=== PATIENT | male | born 1965 | race Caucasian/White ===

== ENCOUNTER → 2018-02-13 08:21 | Outpatient (CLI) | payer OTHER, SELFPAY ==
[2018-02-13 09:22] LABS: Anion Gap 8 (5-15); BUN 15 mg/dL (7-18); BUN/Creat Ratio 15.1 RATIO (10-20); Calcium,Total 8.5 mg/dL (8.5-10.1); Chloride 102 mmol/L (98-107); Cholesterol 155 mg/dL (200); Creatinine, Serum 0.99 mg/dL (0.70-1.30); EST Glomerular Filtration Rate 85 mL/min (>60); Est Glom Filt Rate - Afr Amer 102 mL/min (>60); Glucose 213 mg/dL (74-106); High Density Lipoprotein 26 mg/dL; Microalbumin,Random Urine 44.2 mg/L (NO RANGE EST.); Microalbumin:Creatinine Ratio 29.1 mg/g CRE (<30 mg/g CRE); Potassium 4.5 mmol/L (3.5-5.1); Sodium Level 137 mmol/L (136-145); Triglycerides 334 mg/dL; Very Low Density Lipoprotein 67 mg/dL (5-40)
[2018-02-13 09:29] LABS: Hemoglobin A1c 8.5 % (4.2-6.3)
== END ==
PROVIDERS: Family Provider Family Medicine; PCP Family Medicine; Visit Provider Nurse Practitioner Family
DX: Z00.00 Encounter for general adult medical examination without abnormal findings (principal); E11.9 Type 2 diabetes mellitus without complications
CPT/HCPCS: 36415; 80048; 80061; 82043; 82570; 83036

== ENCOUNTER → 2018-07-12 06:53 | Outpatient (CLI) | payer OTHER, SELFPAY ==
[2018-07-12 08:24] LABS: Hemoglobin A1c 7.6 % (4.2-6.3)
[2018-07-12 08:41] LABS: Bilirubin, Direct 0.13 mg/dL (0.00-0.30)
== END ==
PROVIDERS: Family Provider Family Medicine; PCP Family Medicine; Visit Provider Family Medicine
DX: E11.9 Type 2 diabetes mellitus without complications (principal); E78.5 Hyperlipidemia, unspecified
CPT/HCPCS: 36415; 82248; 83036

== ENCOUNTER → 2018-11-17 09:09 | Outpatient (CLI) | payer OTHER, SELFPAY | PROVIDERS: Family Provider Family Medicine; PCP Family Medicine; Referring Provider Family Medicine; Visit Provider Family Medicine | DX: E11.9 Type 2 diabetes mellitus without complications (principal) | CPT/HCPCS: 36415; 83036 ==

== ENCOUNTER → 2018-11-21 16:52 | Outpatient (CLI) | payer OTHER, SELFPAY ==
[2018-11-21 16:31] VITALS: BMI 34.0
--- NOTE | 2018-11-21 16:53 | RAD_ITS ---
STUDY: X-RAY - RIGHT HAND REASON FOR EXAM: Male, 53 years old. Injured right hand TECHNIQUE: 3 view(s) of the hand. COMPARISON: None. FINDINGS: Normal radiocarpal articulation. Normal distal radioulnar joint. Normal visualized carpal bones. Normal carpal articulations Normal carpometacarpal articulation of the thumb. Normal second through fifth carpometacarpal joints. Normal metacarpi. Normal metacarpophalangeal joint of the thumb. Normal interphalangeal joint of the thumb. Normal proximal and distal phalanges of the thumb. Normal metacarpophalangeal joints of the second through fifth fingers. Normal proximal and distal interphalangeal joints of the second through fifth fingers. Normal phalanges of the second through fifth fingers. The soft tissue structures are unremarkable. RAD/Hand Min 3 Views IMPRESSION: Normal x-ray examination of the hand. Electronically Signed: Jermain Harper MD at 18:55 EST , Service support ,
== END ==
PROVIDERS: Family Provider Family Medicine; PCP Family Medicine; Referring Provider Physician Assistant Surgical; Visit Provider Physician Assistant Surgical
DX: S66.911A Strain of unspecified muscle, fascia and tendon at wrist and hand level, right hand, initial encounter (principal)
CPT/HCPCS: 73130

== ENCOUNTER → 2019-02-07 07:53 | Outpatient (CLI) | payer OTHER, SELFPAY ==
[2018-11-21 16:31] VITALS: BMI 34.0
[2019-02-07 09:41] LABS: Hemoglobin A1c 6.9 % (4.2-6.3)
== END ==
PROVIDERS: Family Provider Family Medicine; PCP Family Medicine; Referring Provider Family Medicine; Visit Provider Family Medicine
DX: E11.9 Type 2 diabetes mellitus without complications (principal)
CPT/HCPCS: 36415; 83036

== ENCOUNTER 2019-06-01 15:43 | Emergency (ER) | payer OTHER, SELFPAY ==
[2018-11-21 16:31] VITALS: BMI 34.0
[2019-06-01 15:45] VITALS: BP 153/93; PULSE 93; RESP 16; TEMP 36.3; O2SAT 96; BMI 32.8
--- NOTE | 2019-06-01 15:50 | RAD_ITS ---
STUDY: X-RAY - RIGHT SHOULDER REASON FOR EXAM: Male, 54 years old. Trauma TECHNIQUE: 2 view(s) of the shoulder. COMPARISON: None. FINDINGS: Mildly narrowed glenohumeral articulation and subacromial space narrowing.. Arthrosis of the acromioclavicular joint. Normal acromion. Normal humeral head and visualized proximal humerus. The soft tissue structures are unremarkable. Normal visualized pulmonary apex. RAD/Shoulder min 2 Views IMPRESSION: Degenerative changes. No evidence for acute fracture Electronically Signed: Adair Arzola MD at 16:19 EDT , Service support ,
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
--- NOTE | 2019-06-01 16:34 | ED.DEP ---
ED Disposition - Plan for ED Patient: Disposition: Home or Assisted Living Instructions: Shoulder Sprain Referrals: Neal Brown III, MD [Primary Care Provider] - Peggy Loving DO [STAFF PHYSICIAN] -
[2019-06-01 16:41] VITALS: PULSE 71; RESP 18
== END 2019-06-01 16:42 | disposition home or self-care (01) ==
PROVIDERS: Emergency Provider Emergency Medicine; Family Provider Family Medicine; PCP Family Medicine
DX: S40.011A Contusion of right shoulder, initial encounter (principal); W50.0XXA Accidental hit or strike by another person, initial encounter; Y93.89 Activity, other specified; Y92.34 Swimming pool (public) as the place of occurrence of the external cause; Y99.8 Other external cause status; E11.9 Type 2 diabetes mellitus without complications; Z79.84 Long term (current) use of oral hypoglycemic drugs; Z79.82 Long term (current) use of aspirin
CPT/HCPCS: 73030; 99282

== ENCOUNTER → 2019-06-18 07:50 | Outpatient (CLI) | payer OTHER, SELFPAY ==
[2019-06-01 15:45] VITALS: BMI 32.8
[2019-06-18 09:17] LABS: Hemoglobin A1c 6.5 % (4.2-6.3)
== END ==
PROVIDERS: Family Provider Family Medicine; PCP Family Medicine; Referring Provider Family Medicine; Visit Provider Family Medicine
DX: E11.9 Type 2 diabetes mellitus without complications (principal)
CPT/HCPCS: 36415; 83036

== ENCOUNTER → 2019-06-28 07:39 | Outpatient (CLI) | payer OTHER, SELFPAY ==
[2019-06-22 08:31] VITALS: BMI 32.8
--- NOTE | 2019-06-28 07:40 | MRI_ITS ---
STUDY: MRI RIGHT SHOULDER REASON FOR EXAM: Right shoulder pain, limited range of motion, arm weakness for 4 weeks. TECHNIQUE: Standardized fat and water weighted pulse sequences were obtained in all 3 orthogonal planes. COMPARISON: Radiographs 06/01/2019. FINDINGS: There is a full-thickness tear of the supraspinatus and infraspinatus tendons retracted approximately 2.9 cm (T2 coronal images 4-13). There is an undersurface partial-thickness tear of the subscapularis tendon with medial subluxation of the long biceps tendon (T2 axial images 12-14). Normal teres minor tendon. There is mild edema in the supraspinatus muscle. Normal infraspinatus muscle. There is atrophy with partial replacement of the subscapularis muscle (T2 axial images 14-18). Normal teres minor muscle. There is a small glenohumeral joint effusion. There is superior migration of the humeral head secondary to the retracted rotator cuff tear. Normal biceps labral complex. There is tendinosis of the intracapsular long biceps tendon (T2 coronal image 15). Normal labrum. Normal capsulo- ligamentous complex. There is acromioclavicular arthrosis with hypertrophic changes (T2 sagittal image 18). There is a Type II morphology (curved), with a neutral orientation. There is a small volume of subacromial-subdeltoid bursal fluid. Normal visualized coracohumeral and coracoacromial ligaments. Normal deltoid muscle. Normal trapezius muscle. MRI/Upper Ext Joint Only(Routine) IMPRESSION: Full-thickness tear of the supraspinatus and infraspinatus tendons. Undersurface partial-thickness tear of the subscapularis tendon with medial subluxation of the long biceps tendon. Atrophy of the subscapularis muscle. Tendinosis of the long biceps tendon. Acromioclavicular arthrosis. Glenohumeral joint fluid communicating with the subacromial-subdeltoid bursa. Electronically Signed: Sid Oviedo MD at 8:35 EDT Tel , Service support ,
== END ==
PROVIDERS: Family Provider Family Medicine; PCP Family Medicine; Referring Provider Orthopaedic Surgery; Visit Provider Orthopaedic Surgery
DX: M19.011 Primary osteoarthritis, right shoulder (principal)
CPT/HCPCS: 73221

== ENCOUNTER 2019-07-10 08:08 | Day surgery (SDC) | payer OTHER, SELFPAY ==
[2019-06-29 08:04] VITALS: BMI 32.8
[2019-07-05 11:23] LABS: Hemoglobin 15.4 g/dL (13.0-16.5); Mean Corp Hgb Conc 33.5 g/dL (32-36); Mean Corpuscular Hgb 30.3 pg (27.0-32.0); Mean Corpuscular Volume 90.4 fL (80-94); Platelet Count 312 K/mm3 (150-450); RBC Distribution Width CV 12.7 % (11.6-14.6); RBC Distribution Width SD 42.2 fl (35.1-43.9); Red Blood Count 5.09 M/mm3 (4.6-6.2); White Blood Count 5.1 K/mm3 (4.4-11.0)
[2019-07-05 11:41] LABS: Anion Gap 9 (5-15); BUN 17 mg/dL (7-18); BUN/Creat Ratio 15.5 RATIO (10-20); Calcium,Total 9.1 mg/dL (8.5-10.1); Chloride 103 mmol/L (98-107); EST Glomerular Filtration Rate 75 mL/min (>60); Est Glom Filt Rate - Afr Amer 90 mL/min (>60); Glucose 202 mg/dL (74-106); Potassium 4.1 mmol/L (3.5-5.1); Sodium Level 140 mmol/L (136-145)
[2019-07-10] VITALS (7 sets, daily range): BP systolic 146–173; BP diastolic 72–114; PULSE 66–81; RESP 14–16; TEMP 35.9–36.4; O2SAT 91–96; BMI 32.5
[2019-07-10] MEDS: Lactated Ringers 1,000 ML 100 ML IV (08:46)
[2019-07-10 09:06] LABS: Bedside Glucose 136 mg/dL (70-110)
[2019-07-10] MEDS: Cefazolin 2 GM in 0.9% Normal Saline 100 ML IV (09:49)
[2019-07-10] MEDS: Epinephrine (1 mg/ml) 1 MG/ML VIAL (10:15)
[2019-07-10] MEDS: Bupiv/Epi 0.5% Mpf 30 ML Vial (10:25)
[2019-07-10] MEDS: Bupivacaine Mpf 0.5% 30 ML VIAL (12:02)
--- NOTE | 2019-07-10 12:20 | DCINST_ITS ---
Discharge Diet: No Restrictions Additional Instructions: Leave the dressing on and intact for 48 hours. ice shoulder 15 min on and 15 mins off next 72 hrs. Then may remove and shower with warm water and antibacterial soap. But do not submerge in tub for 3 weeks. May remove sling for elbow range of motion and pendulum exercises only then replace sling. no active shoulder motion. Encourage finger and wrist range of motion. If any concerns call Dr. Martini's office. may take pain medication as perscribed in addition may take ibuprophen 800mg TID starting day after surgery Allergies/Adverse Reactions: Allergies No Known Allergies Allergy (Verified 07/10/19 08:18) Medications to take at Discharge Glimepiride [Amaryl] 2 mg PO DAILY 08/25/16 Metformin HCl [Metformin HCl ER] 500 mg PO BID 08/25/16 Pioglitazone [Actos] 30 mg PO DAILY 07/04/19 Oxycodone HCl/Acetaminophen [Percocet 5/325] 1 - 2 tablet PO Q4H PRN PRN #60 tablet 07/10/19 The following prescriptions were given: Oxycodone HCl/Acetaminophen [Percocet 5/325] 1 - 2 tablet PO Q4H PRN PRN #60 tablet PRN Reason: Pain Transmission Status: Sent to [facility] Orders to be completed after discharge: 12 Lead EKG [[facility]] Time Frame: 07/04/19, Facility: [facility], Location: Cardiovascular Services Primary Care Physician: Neal Brown III, MD [Primary Care Provider] - Test Results: Test results from this visit will be discussed in further detail at your follow- up appointment, if applicable.
--- NOTE | 2019-07-10 12:23 | PCM.HP.BLA ---
History and Physical Date of Admission: 07/10/19 Intake Vital Signs 06/29/19 Body Mass Index (BMI) 32.8 Intake Visit Reasons: RIGHT SHOULDER Chief Complaint: Chest Pain Allergies No Known Allergies Allergy (Verified 06/01/19 15:46) Medications Glimepiride [Amaryl] 2 mg PO DAILY 08/25/16 [History Confirmed 06/29/19] Metformin HCl [Metformin HCl ER] 500 mg PO BID 08/25/16 [History Confirmed 06/29/19] [facility] Medical History (Updated 11/21/18 @ 16:37 by YESSENIA Bob) Diabetes (Acute) Family History (Updated 11/21/18 @ 16:34 by Izzy Velazquez) Mother COPD (chronic obstructive pulmonary disease) Father Cancer Social History (Updated 06/29/19 @ 09:55 by Jose Martini DO) Smoking Status: Never smoker alcohol intake: current alcohol intake frequency: a few times a month HPI RIGHT SHOULDER: Details: Parts of this documentation were recorded by a scribe, this documentation accurately reflects the service provided and the decisions made by vaJose DO 06/29/19 0739. NORY ZAPIEN is a 54 year old M here today for review of right shoulder MRI. DOI: 06/01/19 Patient states he is still having pain of his right shoulder and has limited ROM and weakness of his shoulder. States he has numbness of his right elbow that radiates into his hand and fingers. Denies any changes from his last visit. Denies any injection or any PT. Patient is a diabetic and his A1C was 6.5 at last check. ROS Const Reports system reviewed and no additional complaints, except as docu Eyes Reports system reviewed and no additional complaints, except as docu ENT Reports system reviewed and no additional complaints, except as docu Card Reports system reviewed and no additional complaints, except as docu Resp Reports system reviewed and no additional complaints, except as docu GI Reports system reviewed and no additional complaints, except as docu Reports system reviewed and no additional complaints, except as docu Musc Reports system reviewed and no additional complaints, except as docu, Reports as per HPI Skin/Breast Reports system reviewed and no additional complaints, except as docu Neuro Yes system reviewed and no additional complaints, except as docu Psych Reports system reviewed and no additional complaints, except as docu Endo Reports system reviewed and no additional complaints, except as docu Joe/Lymph Reports system reviewed and no additional complaints, except as docu Aller/Immun Reports system reviewed and no additional complaints, except as docu Ortho Exam Right Shoulder Date of injury: 06/01/19 Skin/Wound: No ecchymosis, No erythema, No swelling Testing: Positive Hawkin's SHOULDER: 5/5 shoulder strength 110 abduction 4/5 abduction strength external rotation 65 Intact sensation 2 out of 4 radial pulse No skin rash Supplemental Info 06/28/2019 MRI right shoulder: Full-thickness supraspinatus infraspinatus rotator cuff tear partial-thickness subscapularis tear with medial subluxation of biceps tendinosis of the long head biceps atrophy of subscapularis AC joint arthrosis Assessment & Plan Problems 1. Traumatic incomplete tear of right rotator cuff, subsequent encounter S46.011D 2. Tendinopathy of right biceps tendon M67.921 3. Impingement syndrome of right shoulder M75.41 Plan Personally reviewed patient right shoulder MRI. Patient educated that he has a massive RTC tear. Patient educated that he may have had injury prior to most recent injury then the trauma may have caused more of a tear. Recommended surgical RTC repair along with biceps tenotomy. Reviewed the pre-operative plans with the patient. Risks and benefits of the procedure were fully explained, including but not limited to infection, neurovascular injury, continued pain, arthritis, stiffness, need for further surgery, re-injury, DVT, PE, general risks of anesthesia, and loss of limb or life. The patient understands all the risks and does wish to proceed with written consent for right shoulder arthroscopic RTC repair, biceps tenotomy and subacromial decompression. Patient educated that he is in a sling for 6 weeks post op without AROM and then 6 weeks after that he can start some strengthening. Patient educated that he would be off work for about around 4 months recovery up to 6 months. Looking at surgery date of 07/10/19. Follow up 2 weeks post op or sooner if pain, swelling, numbness or associated symptoms, or concerns develop. All questions answered. Patient in agreement of plan. Coding Level of Care Code Off vis,est,level 3 Diagnoses Traumatic incomplete tear of right rotator cuff, subsequent encounter S46.011D ??Encounter type: subsequent encounter ??Laterality: right ??Rotator cuff tear extent: incomplete ??Rotator cuff tear trauma status: traumatic Tendinopathy of right biceps tendon M67.921 ??Laterality: right Impingement syndrome of right shoulder M75.41 I have re-examined the patient. There are no clinical changes since date of exam
--- NOTE | 2019-07-10 12:23 | PCM.OPRPT ---
Report of Operation Date of Procedure: 07/10/19 Description of Surgical Findings:: Preoperative diagnosis: right rotator cuff tear supra spinatus suspect chronic, ac joint arthritis, labral terar] Postoperative diagnosis: Full-thickness supraspinatus and infraspinatus rotator cuff tear with retraction labral tear, Procedure: Arthroscopic rotator cuff repair, biceps tenotomy, labral debridement, subacromial decompression Implants: Arthrex speed bridge 4 anchor pair Anesthesia: General with interscalane block EBL: 25 cc Complications none Indication for procedure: This is a 54-year-old male patient has had injury to right shoulder, however never had loss of strength he did have MRI which showed a full-thickness supraspinatus infraspinatus rotator cuff tear as well as some labral tearing and impingement however this suspected that tear he has had a chronic component to this there was no weakness on examination significant we will compensation however patient had pain and did wish to proceed with elective arthroscopic rotator cuff repair with the understanding that if it was indeed chronic and may not be repairable or that it may re-tear or tissue quality might be poor in addition to the subacromial decompression labral debridement biceps tenotomy. Risks benefits and alternatives of the procedure were reviewed including risk of bleeding infection nerve artery tissue damage need for further surgery continued pain postoperative stiffness and need for postoperative physical therapy and continued pain and retear. Procedure: Patient was met in the preoperative holding area the operative extremity was identified by both the patient and the physician and was marked. Patient was met by anesthesia and brought back to the operating room on a wheeled cart. Patient was transferred to the operating table in the supine position. Anesthesia was started. Patient was then positioned in the beach chair configuration. Bony prominences were well-padded. The patient was prepped and draped in the usual sterile fashion. A timeout was called to ensure the proper patient procedure and extremity were being contemplated. Anatomic landmarks were palpated and marked with a marking pen. A 0.25% Marcaine with epinephrine was injected into the planned portal sites. An 11 blade scalpel was used to make a stab incision in the posterior lateral portal. Arthroscope was inserted into the glenohumeral space with ease. Inflow and outflow tubes were attached and arthroscopic visualization began. An anterior portal was established with an 18-gauge spinal needle. There is noted to be tearing of the anterior superior labrum which was debrided with a shaver the biceps also had significant synovitis and tearing it was released with an ArthroCare wand performing biceps tenotomy was no acute subscapularis tear however did appear to be chronically scarred into the anterior capsular tissues the supraspinatus infraspinatus was torn and retracted the rotator cuff was evaluated and was found to have a full-thickness tear of both supraspinatus and the infraspinatus. The axillary pouch was investigated and was free of loose bodies. The arthroscope was then repositioned into the subacromial space and a lateral portal was established. A subacromial decompression with an ArthroCare wand and shaver was performed. There was noted to be anterior spurring of the acromion which was burred to create a flat surface of the acromion and the undersurface of the acromioclavicular joint. Performing an anterior acromioplasty. [The bursal side of the rotator cuff was evaluated . The lateral border of the articular cartilage was medialized with a bur using standard speed bridge fashion 2 medial anchors were placed wedges of the fiber tapes were cut and for individual passes of the rotator cuff were performed then in standard fashion the posterior limb of each of these anchors were secured to a posterior lateral anchor and were tapped into place under tension this was repeated for the anterior 2 limbs a luggage tag stitch was also added to the medial row for additional support. Excellent repair was achieved. The wound was thoroughly irrigated through the scope followed by a subacromial injection with 4 mg of morphine and 8 cc of 0.5% Marcaine plain. Suture portals were closed with 3-0 nylon arthroscopic stitches followed by Xeroform 4 x 4 ABD and a Ioban dressing. A abduction sling and pillow was placed. Anesthesia was reversed and patient tolerated the procedure well was and was transferred to the PACU. All counts were correct patient will follow-up in the office in 2 weeks . Patient may begin active elbow and wrist range of motion and pendulums of the shoulder but no active shoulder motion, dressing is to be left on for 48 hours before being changed daily after showering
[2019-07-10] MEDS: Acetaminophen 325 MG Tablet PO (14:03)
[2019-07-10] MEDS: oxyCODONE 5 MG Tablet PO (14:18)
[2019-07-10 16:01] LABS: Bedside Glucose 159 mg/dL (70-110)
== END 2019-07-10 15:27 | disposition home or self-care (01) ==
LOC: SDC 08:08 → AC 08:08
PROVIDERS: Anesthesiology; Family Provider Family Medicine; PCP Family Medicine; Referring Provider Orthopaedic Surgery; Visit Provider Orthopaedic Surgery
PROC: (CPT 29827; principal; 2019-07-10 09:30)
DX: S46.011A Strain of muscle(s) and tendon(s) of the rotator cuff of right shoulder, initial encounter (principal); M75.41 Impingement syndrome of right shoulder; M67.921 Unspecified disorder of synovium and tendon, right upper arm; X58.XXXA Exposure to other specified factors, initial encounter; Y93.9 Activity, unspecified; Y92.9 Unspecified place or not applicable; Y99.9 Unspecified external cause status; E11.9 Type 2 diabetes mellitus without complications; G47.30 Sleep apnea, unspecified; Z79.84 Long term (current) use of oral hypoglycemic drugs; Z79.899 Other long term (current) drug therapy
CPT/HCPCS: 01630; 29826; 29827; 36415; 80048; 82962; 85027; 93005; J7120; J2405

== ENCOUNTER → 2019-07-30 09:37 | Outpatient (CLI) | payer OTHER, SELFPAY ==
[2019-07-23 14:53] VITALS: BMI 32.5
[2019-07-30 11:36] LABS: AST(SGOT) 11 U/L (15-37); Alanine Aminotransfer ALT/SGPT 29 U/L (16-61); Albumin, Serum 3.7 g/dL (3.2-5.0); Alkaline Phosphatase 55 U/L (45-117); Anion Gap 6 (5-15); BUN 13 mg/dL (7-18); BUN/Creat Ratio 14.7 RATIO (10-20); Calcium,Total 8.8 mg/dL (8.5-10.1); Chloride 105 mmol/L (98-107); Cholesterol 208 mg/dL (200); Creatinine, Serum 0.88 mg/dL (0.70-1.30); EST Glomerular Filtration Rate 96 mL/min (>60); Est Glom Filt Rate - Afr Amer 116 mL/min (>60); Globulin 3.7 g/dL (2.2-4.2); Glucose 138 mg/dL (74-106); High Density Lipoprotein 38 mg/dL; Protein, Total 7.4 g/dL (6.4-8.2); Sodium Level 139 mmol/L (136-145); Triglycerides 237 mg/dL; Very Low Density Lipoprotein 47 mg/dL (5-40)
[2019-07-30 11:38] LABS: Vitamin B12 373 pg/mL (211-911)
[2019-07-30 11:45] LABS: Hemoglobin A1c 6.3 % (4.2-6.3)
== END ==
PROVIDERS: Family Provider Family Medicine; PCP Family Medicine; Referring Provider Nurse Practitioner Family; Visit Provider Nurse Practitioner Family
DX: E78.5 Hyperlipidemia, unspecified (principal); E11.9 Type 2 diabetes mellitus without complications; I10 Essential (primary) hypertension
CPT/HCPCS: 36415; 80053; 80061; 82607; 83036

== ENCOUNTER 2020-01-11 09:37 | Emergency (ER) | payer OTHER, SELFPAY ==
[2019-12-10 15:53] VITALS: BMI 32.5
[2020-01-11 09:38] VITALS: BP 198/106; PULSE 82; RESP 18; TEMP 36.6; O2SAT 97; BMI 32.8
--- NOTE | 2020-01-11 09:54 | ED.VIS.GEN ---
History of Present Illness Chief Complaint: Upper Extremity Injury Informant: Patient Onset: Today Current Severity: Moderate Maximum Severity: Moderate Narrative: Patient was at work reaching for some books and heard a snap in his shoulder region. He has pain with movement of that shoulder. He has no neck pain no paresthesias no weakness. He has no chest pain or shortness of breath pain is mechanical worse with certain movements. Past Medical History - Allergies and Home Meds Allergies/Adverse Reactions: Allergies No Known Allergies Allergy (Verified 01/11/20 09:40) Primary Care Physician: Jose Martini DO [STAFF PHYSICIAN] - Past Medical History: - - History of prior rotator cuff surgery on the contralateral right side. Smoking Status: Never smoker Review of Systems Cardiovascular: Denies: Chest pain Respiratory: Denies: Dyspnea Musculoskeletal: Reports: - - Shoulder and upper bicep pain Skin: Denies: Wounds Neurological: Denies: Weakness, Parasthesia, Numbness Hematologic: Denies: Easy bruising, Easy bleeding Physical Exam Vital Signs/Narrative: Vital Signs Temp Pulse Resp BP Pulse Ox 01/11/20 09:38 97.9 F 82 18 198/106 H 97 General: Well nourished, Well developed ENT: Moist mucous membranes Cardiovascular: Regular rate, Regular rhythm Respiratory: No distress Extremities: - - There is upper biceps tendon tenderness worse with pronation supination as well as full extension, there is also some tenderness over the deltoid, there is no AC joint tenderness, full range of motion of the shoulder with minimal shoulder tenderness. Diagnostic/Tx/Re-eval Left shoulder x-ray interpreted by me shows normal alignment. Normal AC joint no evidence of dislocation no evidence of bony injury. - Medical Decision Making Patient's pain is over the proximal bicep tendon region, he does have more pain with movement of the biceps especially extension. He has an unremarkable x-ray, he will be referred for Workmen's Comp. and he will be referred to orthopedics. ED Disposition - Plan for ED Patient: Disposition: Home or Assisted Living Diagnosis: Biceps tendinitis on left, Shoulder strain Instructions: SHOULDER PAIN (Uncertain Cause), Shoulder Sprain Prescriptions: Naproxen [Naprosyn] 500 mg PO BID PRN #20 tab Transmission Status: Pending to [facility] Referrals: Jose Martini DO [STAFF PHYSICIAN] - 3-5 Days
--- NOTE | 2020-01-11 10:05 | RAD_ITS ---
STUDY: X-RAY - LEFT SHOULDER REASON FOR EXAM: Male, 54 years old. PAIN IN LEFT SHOULDER. PT INJURED LEFT SHOULDER WHILE WORKING/REACHING ABOVE HIS HEAD. FELT LIKE HIS LEFT SHOULDER POPPED OUT AND THEN BACK IN. TECHNIQUE: 4 view(s) of the shoulder. COMPARISON: Comparison is made with prior study dated May 18, 2010. FINDINGS: Normal glenohumeral articulation. There is a mild degree of degenerative arthrosis of the acromioclavicular joint without inferior osseous spur formation. Normal acromion. There is a 5 mm rounded sclerotic region in the humeral head most likely representing a bone island. This is unchanged since prior examination. The soft tissue structures are unremarkable. Normal visualized pulmonary apex. RAD/Shoulder min 2 Views IMPRESSION: Mild degree of the degenerative changes. Electronically Signed: Mac Dominguez, at 10:34 EST , Service support ,
[2020-01-11 10:21] VITALS: RESP 18
== END 2020-01-11 11:22 | disposition home or self-care (01) ==
LOC: ED 10:57
PROVIDERS: Emergency Provider Emergency Medicine; PCP Family Medicine
DX: S46.912A Strain of unspecified muscle, fascia and tendon at shoulder and upper arm level, left arm, initial encounter (principal); X58.XXXA Exposure to other specified factors, initial encounter; Y93.89 Activity, other specified; Y92.9 Unspecified place or not applicable; Y99.0 Civilian activity done for income or pay; M75.22 Bicipital tendinitis, left shoulder
CPT/HCPCS: 73030; 99282

== ENCOUNTER → 2020-01-21 07:25 | Outpatient (CLI) | payer OTHER, SELFPAY ==
[2020-01-14 15:53] VITALS: BMI 32.8
--- NOTE | 2020-01-21 07:25 | MRI_ITS ---
STUDY: MRI LEFT SHOULDER REASON FOR EXAM: Male, 54 years old. left shoulder injury, anterior and posterior pain, pain extends into bicep TECHNIQUE: Standardized fat and water weighted pulse sequences were obtained in all 3 orthogonal planes. COMPARISON: X-ray 01/11/2020 FINDINGS: Moderate supraspinatus and infraspinatus tendinosis and peritendinitis is with a 5 x 5 mm penetrating concealed interstitial delamination tear of the anterior supraspinatus tendon at the footprint with subchondral cyst formation of the greater tuberosity. Moderate subscapularis tendinosis with an undersurface tear and in particular subluxation long head of the biceps tendon. Normal teres minor tendon. Normal supraspinatus muscle. Normal infraspinatus muscle. Normal subscapularis muscle. Normal teres minor muscle. Normal glenohumeral articulation. There is a cortical erosion at the insertion of the supraspinatus tendon. Normal biceps labral complex. Normal intracapsular long biceps tendon. Normal labrum. Normal capsulo- ligamentous complex. Normal rotator interval. There is mild osteoarthritis of the acromioclavicular articulation. There is a Type II morphology (curved), with a anterior downsloping orientation. There is no subacromial-subdeltoid bursal fluid. Normal visualized coracohumeral and coracoacromial ligaments. Normal quadrilateral space. Normal axillary space. Normal deltoid muscle. Normal trapezius muscle. MRI/Upper Ext Joint Only(Routine) IMPRESSION: 1. Moderate supraspinatus and infraspinatus tendinosis and peritendinitis as with a 5 x 5 mm penetrating concealed interstitial delamination tear of the anterior supraspinatus tendon at the footprint. No muscular atrophy. 2. Moderate subscapularis tendinosis with an undersurface tear and intra-articular subluxation long head of the biceps tendon. 3. Mild acromioclavicular joint arthrosis. Electronically Signed: Colby Michael MD at 8:37 EDT Tel , Service support ,
== END ==
PROVIDERS: PCP Family Medicine; Referring Provider Orthopaedic Surgery; Visit Provider Orthopaedic Surgery
DX: S46.912A Strain of unspecified muscle, fascia and tendon at shoulder and upper arm level, left arm, initial encounter (principal); M75.22 Bicipital tendinitis, left shoulder
CPT/HCPCS: 73221

== ENCOUNTER 2020-01-24 16:00 | Outpatient (RCR) | payer OTHER, SELFPAY ==
[2019-07-23 14:53] VITALS: BMI 32.5
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
--- NOTE | 2019-11-27 08:18 | HP.PTREVAL ---
Jose Martini, DO, It has been my pleasure to treat NORY ZAPIEN over the last 33 visits for S/P ROTATOR CUFF REPAIR ,BICEPS TENOTOMY. Please see the progress note below for an update on the physical therapy plan of care! Subjective: Less sore .. 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 Conts to be on light uty Objective/Function: POSTURE: mild fowrd posture. AROM: shoulder flexion 165 degrees,160 degrees ,ER 88 degrees,IR L3. MMT: infraspinatous 4-/5,subscap 4/5,supraspinatous 3+/5: 4-/5,deltoid anterior/lateral 3+/5 Plan Plan: Patient will continue to benifit from skilled PT due weakness RTC and deltoid and is currently working with restriction being on light duty. S/P RTC REPAIR. INFRASPINATOUS/SUBSCAPULARIS,BICEPS TENOTOMY ,SUBACROMIAL DECOMPRESSION 07/10/19. PT INTERVENTIONS /AROM/STRENGTHENING RTC/SCAPULAR /POSTURAL EX'S,functonal strengthneing Goals Goal 1:: Independant with HEP and instruction to spouse Goal Time Frame: 12-16 Weeks Goal Progress: Progressing Goal 2:: Patient to improve PROM flexion/abd 155 degrees ,ER 80 degrees Goal Time Frame: 8-12 Weeks Goal Progress: Goal Met Goal 3:: Patient will progress to strength RTC 4/5 ,DELTOID 4-/5 to improve function with ADL's and RTW. Goal Time Frame: 12-16 Weeks Goal Progress: Progressing Goal 4:: Patient to improve quick Dash score by 10 points or> to improve QOL. Goal Time Frame: 12-16 Weeks Goal Progress: Progressing Goal 5:: Patient be able to perform ADLS and job demnads with min limiations Goal Time Frame: 12-16 Weeks Goal 6:: Patient to improve AROM shoulder flexion /abduction 165 DEGREES ,IR L1 for function Goal Time Frame: 12-16 Weeks Anticipated Interventions Patient/Client Instruction: Educate patient on: Condition, Plan of Care For the Purpose of:: To decrease pain, To increase ROM, To improve muscle performance and motor function, To improve ability to perform ADL's, To increase tolerance to activity/condition/position, To improve ability of physical actions for home/community/work/leisure, To improve health of tissue, To decrease soft tissue restriction, To increase flexibility/ROM Therapeutic Exercise to Include: Strength training, Passive ROM, Active ROM, Scapular Strength/Stabilization Comment: INTIAL PROM ANGELICA SCRUGGS PER MD ORDER For the Purpose of:: To decrease pain, To increase ROM, To improve muscle performance and motor function, To improve ability to perform ADL's, To increase tolerance to activity/condition/position, To improve ability of physical actions for home/community/work/leisure, To improve health of tissue, To decrease soft tissue restriction, To increase flexibility/ROM Manual Therapy Techniques to Include: Passive ROM For the Purpose of:: To increase ROM Please do not hesitate to contact me at [phone] by phone or if you have questions or concerns regarding this new plan of care! Sincerely, Javier Bowden, PT, Cert MDT, OCS
== END 2020-01-24 19:00 | disposition home or self-care (01) ==
LOC: PT 16:00
PROVIDERS: Family Provider Family Medicine; PCP Family Medicine; Referring Provider Orthopaedic Surgery; Visit Provider Orthopaedic Surgery
DX: Z98.890 Other specified postprocedural states (principal)
CPT/HCPCS: 97014; 97110; 97140; 97161; G0283

== ENCOUNTER → 2020-01-25 08:10 | Outpatient (CLI) | payer OTHER, SELFPAY ==
[2020-01-21 15:28] VITALS: BMI 32.8
[2020-01-25 09:12] LABS: ALB/GLOB Ratio 1.2 RATIO (0.9-2.4); AST(SGOT) 20 U/L (15-37); Alanine Aminotransfer ALT/SGPT 37 U/L (16-61); Albumin, Serum 4.2 g/dL (3.2-5.0); Alkaline Phosphatase 51 U/L (45-117); Anion Gap 5 (5-15); BUN 17 mg/dL (7-18); BUN/Creat Ratio 18.9 RATIO (10-20); Calcium,Total 9.4 mg/dL (8.5-10.1); Chloride 103 mmol/L (98-107); EST Glomerular Filtration Rate 94 mL/min (>60); Est Glom Filt Rate - Afr Amer 114 mL/min (>60); Globulin 3.4 g/dL (2.2-4.2); Glucose 136 mg/dL (74-106); Potassium 4.8 mmol/L (3.5-5.1); Protein, Total 7.6 g/dL (6.4-8.2); Sodium Level 139 mmol/L (136-145)
== END ==
PROVIDERS: PCP Family Medicine; Referring Provider Family Medicine; Visit Provider Family Medicine
DX: E11.9 Type 2 diabetes mellitus without complications (principal); E78.5 Hyperlipidemia, unspecified
CPT/HCPCS: 36415; 80053; 83036

== ENCOUNTER 2020-02-13 16:30 | Outpatient (RCR) | payer OTHER, SELFPAY ==
[2020-01-21 15:28] VITALS: BMI 32.8
--- NOTE | 2020-02-13 16:39 | HP.PTDCSUM_ITS ---
It has been my pleasure to treat NORY ZAPIEN referred by Jose Martini DO, with the diagnosis of S/P ROTATOR CUFF REPAIR ,BICEPS TENOTOMY for a total of 48 visit(s). Discharge Date: Please see the following information for a summary of their discharge status. Subjective: This is his last visit. He has exercies at home. He is waiting for his new surgery to be scheduled. % Improvement: 80 Objective/Function: R shoulder flex, abd full ROM. R shoulder ER WFL and IR to T12. R shoulder flexion 4-/5, shoulder abd 4/5, ER 4/5, IR 4+/5 Goal 1:: INEPENDANT WITH PROGRESSION OF RTC STRENGTHENING Goal Progress: Goal Met Goal 2:: PATIENT IMPROVE STRENGTH OF RTC 4+/5,AND INFRASPAINATOUS 90/90 4- /5,DELTOID 4/5 Goal Progress: Progressing Goal 3:: PATIENT IMPROVE QUICK DASH BY 10 POINTS TO IMPROVE FUNCTION QOL. Goal 4:: PATIENT RETURN TO WORK AND ADLS NO LIMIATIONS Goal Progress: Goal Met Goal 5:: PATIENT IMPROVE AROM WNL ALL PLANES FOR FUNCTION Goal Progress: Goal Met Plan: DC PT to HEP.... If there are questions or concerns regarding this patient's physical therapy, please feel free to call me at [phone]. Thank you for the referral of this patient. Sincerely, Virginia Logan, MPT
== END 2020-02-13 19:00 | disposition home or self-care (01) ==
LOC: PT 16:30
PROVIDERS: PCP Family Medicine; Referring Provider Orthopaedic Surgery; Visit Provider Orthopaedic Surgery
DX: Z98.890 Other specified postprocedural states (principal)
CPT/HCPCS: 97110; 97530

== ENCOUNTER 2020-06-11 05:59 | Day surgery (SDC) | payer OTHER, SELFPAY ==
[2020-04-03 09:44] VITALS: BMI 32.8
[2020-05-08 10:06] VITALS: BMI 32.8
[2020-06-04 10:19] LABS: Hematocrit 41.6 % (40-54); Hemoglobin 14.2 g/dL (13.0-16.5); Mean Corp Hgb Conc 34.1 g/dL (32-36); Mean Corpuscular Hgb 30.7 pg (27.0-32.0); Mean Corpuscular Volume 89.8 fL (80-94); Mean Platelet Vol. 9.1 fl (6.2-12.0); Platelet Count 295 K/mm3 (150-450); RBC Distribution Width CV 13.2 % (11.6-14.6); RBC Distribution Width SD 43.3 fl (35.1-43.9); Red Blood Count 4.63 M/mm3 (4.6-6.2); White Blood Count 4.5 K/mm3 (4.4-11.0)
[2020-06-04 10:32] LABS: Anion Gap 4 (5-15); BUN 14 mg/dL (7-18); BUN/Creat Ratio 15.1 RATIO (10-20); Calcium,Total 8.8 mg/dL (8.5-10.1); Chloride 106 mmol/L (98-107); Creatinine, Serum 0.92 mg/dL (0.70-1.30); EST Glomerular Filtration Rate 91 mL/min (>60); Est Glom Filt Rate - Afr Amer 110 mL/min (>60); Glucose 127 mg/dL (74-106); Sodium Level 140 mmol/L (136-145)
[2020-06-04 10:37] LABS: Hemoglobin A1c 6.3 % (3.8-5.6)
[2020-06-11] VITALS (7 sets, daily range): BP systolic 118–160; BP diastolic 72–90; PULSE 63–80; RESP 16–18; TEMP 36.1–36.7; O2SAT 92–98; BMI 34.4
[2020-06-11 06:20] LABS: Bedside Glucose 112 mg/dL (70-110)
[2020-06-11] MEDS: Lactated Ringers 1,000 ML 100 ML IV (06:38)
--- NOTE | 2020-06-11 07:20 | HP.PCM_ITS ---
History and Physical I have re-examined the patient. There are no clinical changes since date of exam. Intake Intake Visit Reasons: LEFT SHOULDER Is patient in pain?: Yes Allergies No Known Allergies Allergy (Verified 04/03/20 09:44) [facility] Social History (Updated 04/03/20 @ 11:[address] Peggy Loving, ) Smoking Status: Never smoker alcohol intake: current alcohol intake frequency: a few times a month HPI LEFT SHOULDER: Details: Parts of this documentation were recorded by a scribe, this documentation accurately reflects the service provided and the decisions made by me, Dr. Peggy Loving DO 04/03/20 0940. NORY ZAPIEN is a 54 year old M here today for left shoulder pain. Patient notes that he continues to have shoulder pain over his posterior shoulder and lateral shoulder. He has good shoulder range of motion. Patient is limiting his activities with his left arm but feels like he has weakness. Patient had an MRI in January which is here for review. Patient complains of numbness from his elbow into his hand or his hand, depending on his activities. He is working currently with light duty restrictions. Ortho Exam Left Shoulder Skin/Wound: Yes CDI, No ecchymosis, No erythema, No swelling Testing: Yes Hawkin's, Yes Neer's, Yes Speed's, Yes TTP Biceps, Yes AROM-Forward Elevation 0-180 SHOULDER: 4/ RTC Assessment & Plan Problems 1. Bicipital tendinitis, left shoulder M75.22 2. Traumatic complete tear of left rotator cuff, initial encounter S46.012A Plan Spoke with the patient about the anatomy of the shoulder and etiology of his pain. Spoke with the patient about the surgery procedure and recovery. Spoke with him about a biceps tenodesis vs tenotomy, and rotator cuff repair. Patient is developing numbness into his hand due to guarding of his shoulder due to pain. He is using his wrist and elbow more now, due to his shoulder pain. Reviewed the pre-operative plans with the patient. Risks and benefits of the procedure were fully explained, including but not limited to infection, neurovascular injury, continued pain, arthritis, stiffness, need for further surgery, re-injury, DVT, PE, general risks of anesthesia, and loss of limb or life. The patient understands all the risks and does wish to proceed with writ ten consent. Follow up for his 2 week post op or sooner if pain, swelling, numbness or associated symptoms, or concerns develop. All questions answered. Patient in agreement of plan. We discussed the current risk associated COVID-19. While it is understood that there is a community spread of COVID 19 the risk of todd COVID-19 while at [facility] is very low, however, the risk cannot be completely mitigated because of the community spread of the disease. We discussed in detail the risk of exposure to and or potential harm posed by the COVID-19 virus with having a surgery/procedure at this time versus the risk of delaying the surgery/procedure. Is not possible to know either the risk of delaying the surgery procedure or chance of getting an infection with perfect accuracy, but a joint decision was made to proceed at this time with a schedule surgery/procedure as indicated on the consent form. Patient was notified that we will need to comply with any screening or testing [facility] wishes to perform or that surgery may be delayed for any positive results. Coding Level of Care Code Off vis,est,level 4 Diagnoses Bicipital tendinitis, left shoulder M75.22 Traumatic complete tear of left rotator cuff, initial encounter S46.012A ??Encounter type: initial encounter Procedure Criteria Procedure Type: Elective COVID Risk Discussion: The surgeon/proceduralist and patient have discussed in detail the risk of exposure to and/or potential harm posed by the COVID-19 virus with having a surgery/procedure at this time versus the risk of delaying the surgery/procedure. It is not possible to know either the risk of delaying the surgery or procedure or chance of getting an infection with perfect accuracy, but a joint decision was made between the patient and the surgeon/proceduralist to proceed at this time with the scheduled surgery/procedure as indicated on the consent form.
[2020-06-11] MEDS: Cefazolin 2 GM in 0.9% Normal Saline 100 ML IV (07:27)
--- NOTE | 2020-06-11 07:37 | PCM.DC.ORTHO ---
Discharge Diet: No Restrictions - May remove dressings in 4 days and apply Band-Aids to incision sites, may remove sling to do pendulum exercises only, may get incision wet in shower after 4 days, follow-up in 2 weeks or sooner if other issues arise Discharge Activity: May Not Drive May shower in (days): 1 Ice area for (Minutes): 20 - Every hour while awake. Weight Bearing Status: Weight bearing as tolerated Keep extremity elevated above heart level: Operative Extremity Call your doctor if your incision/area has: Continuous Slow Oozing, Sudden Increased Bleeding, Increased Pain/ Swelling, Increased Redness, Foul Smelling Discharge Call your doctor if you observe: Fever of 101 or Higher, Coldness, Increased Pain, Numbness or Tingling, Change in Color, Calf discomfort Allergies/Adverse Reactions: Allergies No Known Allergies Allergy (Verified 06/11/20 06:14) Medications to take at Discharge Glimepiride [Amaryl] 2 mg PO DAILY 08/25/16 Metformin HCl [Metformin HCl ER] 500 mg PO BID 08/25/16 Pioglitazone [Actos] 15 mg PO DAILY 07/04/19 Naproxen [Naprosyn] 500 mg PO BID PRN PRN 06/03/20 Oxycodone HCl/Acetaminophen [Percocet 5/325] 1 - 2 tab PO Q6H PRN PRN 5 Days #28 tab 06/11/20 Zolpidem Tartrate [Ambien (Generic)] 5 mg PO QHS PRN PRN #14 tab 06/11/20 The following prescriptions were given: Zolpidem Tartrate [Ambien (Generic)] 5 mg PO QHS PRN PRN #14 tab PRN Reason: Insomnia Transmission Status: Received by [facility] Oxycodone HCl/Acetaminophen [Percocet 5/325] 1 - 2 tab PO Q6H PRN PRN 5 Days #28 tab PRN Reason: Pain Transmission Status: Received by [facility] Primary Care Physician: Neal Brown III, MD [Primary Care Provider] - Test Results: Test results from this visit will be discussed in further detail at your follow-up appointment, if applicable. Please Follow Up With: Peggy Loving, - [phone]
--- NOTE | 2020-06-11 07:38 | PCM.OPRPT ---
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 Failed conservative treatment MRI confirms rotator cuff tear. Risk benefits and alternatives surgery discussed with patient. Risk include but not limited to blood loss, blood clot, infection, neurovascular, failure procedure, loss of life and loss of limb. Patient is worried like proceed with left shoulder arthroscopy repair as indicated. We discussed the current risk associated COVID-19. While it is understood that there is a community spread of COVID 19 the risk of todd COVID-19 while at [facility] is very low, however, the risk cannot be completely mitigated because of the community spread of the disease. We discussed in detail the risk of exposure to and or potential harm posed by the COVID-19 virus with having a surgery/procedure at this time versus the risk of delaying the surgery/procedure. Is not possible to know either the risk of delaying the surgery procedure or chance of getting an infection with perfect accuracy, but a joint decision was made to proceed at this time with a schedule surgery/procedure as indicated on the consent form. Patient was notified that we will need to comply with any screening or testing [facility] wishes to perform or that surgery may be delayed for any positive results. Operative note Patient seen in preop holding area. Left arm was marked. Patient received a preop regional block. Patient brought to the operating placed supine the operating table. Sign, anesthesia, antibiotics were administered. The left arm was prepped and draped usual sterile technique in beachchair positioning was maintained. Superior through beachchair we did recheck his blood pressure which was stable throughout. Again the left arm was prepped and draped in usual sterile technique marking out our bony landmarks for our portal placement. Timeout was performed then we then insufflated the glenohumeral joint from the posterior portal. He had good return. We then used a 11 blade to create our posterior portal. We then began our diagnostic arthroscopy. The subscap was obviously torn off of its insertion on the lesser tuberosity. The biceps tendon was torn and it was unstable at its insertion on the labrum as well. We created an anterior portal under direct visualization. We pulled the biceps tendon further into the joint and that the biceps tendon itself was torn further distally. The biceps tendon was truncated at its insertion onto the labrum and this was gently debrided with a shaver to a stable rim. We then gently debrided back the lesser tuberosity region for area for footprint. We then rasped the edge of the subscap for repair as this was a acute on chronic tear and had some redundancy so we did smooth out the edges of the and so we can get the good blood flow to the subscap for healing to the bone. We then placed 4 swivel locks into the subscap. Placed a push lock inferior and a swivel lock superior and we created our footprint with our subscap tendon. We then irrigated the shoulder with copious nonsterile saline. We then moved to the rotator cuff 90% of the rotator cuff was intact there was a small rent about 2% of it on the insertion of the most leading edge anteriorly this was gently debrided with a shaver we then placed a spinal needle to visualize it from the subacromial space by me move there. We then moved to the subacromial space with our scope. We created a lateral portal under direct visualization. We resected back the bursa which was extensive throughout. He also had a type II acromion which was co-planed with a bur. Again we furthered our resection coagulated any bleeders we then visualized our spinal needle we noted that it was not a full thickness tear there was no bursal sided tearing and actually that the cuff on the bursal side was quite was thickened and intact. We then irrigated the subacromial space with copious muscle sterile saline. The portals were closed with interrupted nylon we did break and anchor and had a larger incision anteriorly to get a better angle for our subscap repair as we had to do to make a repair and so this anterior portal was closed with Vicryl and 4-0 nylon. Sterile dressings and a sling was applied to the left upper extremity. Patient taught procedure well no complication transferred recovery room stable condition Postoperative note Nonweightbearing left arm Pharmacy has prescriptions Will give family pictures in 2 weeks Call with increased pain numbness tingling or other issues arise Discussed with This note was generated with [employer] dictation software. It may contain incorrect words, spelling, and punctuation that were not noted in checking the note before signing. Grafts/Implants Used: 1 push lock, 1 swivel lock
[2020-06-11] MEDS: Epinephrine (1 mg/ml) 1 MG/ML VIAL (08:00)
[2020-06-11] MEDS: Mupirocin Ointment 22gm Tube 1 APPLIC (09:55)
[2020-06-11 10:46] LABS: Bedside Glucose 195 mg/dL (70-110)
== END 2020-06-11 11:52 | disposition home or self-care (01) ==
LOC: SDC 06:00 → AC 06:00
PROVIDERS: Anesthesiology; PCP Family Medicine; Referring Provider Orthopaedic Surgery; Visit Provider Orthopaedic Surgery
PROC: (CPT 29827; principal; 2020-06-11 07:10)
DX: S46.012A Strain of muscle(s) and tendon(s) of the rotator cuff of left shoulder, initial encounter (principal); X58.XXXA Exposure to other specified factors, initial encounter; Y93.9 Activity, unspecified; Y92.9 Unspecified place or not applicable; Y99.0 Civilian activity done for income or pay; M75.22 Bicipital tendinitis, left shoulder; M25.812 Other specified joint disorders, left shoulder; E11.9 Type 2 diabetes mellitus without complications; Z79.84 Long term (current) use of oral hypoglycemic drugs; Z20.828 Contact with and (suspected) exposure to other viral communicable diseases
CPT/HCPCS: 01630; 23405; 29826; 29827; 64415; 76942; 36415; 80048; 82962; 83036; 85027; 87635; 94799; J7120; J2405; U0003

== ENCOUNTER 2020-09-29 16:00 | Outpatient (RCR) | payer OTHER, SELFPAY ==
[2020-06-24 10:03] VITALS: BMI 34.4
--- NOTE | 2020-07-03 14:11 | HP.PTEVAL ---
Patient's Visit Information NORY ZAPIEN is a 55 year old M referred to Physical Therapy by Dr. Peggy Loving DO with a diagnosis of S/P BICEPS TENOTOMY, SAD/ACROMIOPLASTY, SUBSCAP REPAIR 06/11/20. Date of Evaluation: 07/03/20 Physical Therapist: Nusrat Ovalle, PT, Cert MDT - Visit Plan Frequency: 2-3x /Week Duration: 4-6 Weeks Plan: PT PER ROTATOR CUFF REPAIR PROTOCOL IN FOLDER IN WORKROOM - NO EXTERNAL ROTATION PAST 30 DEG. MONITOR LEFT ELBOW PAIN AND SWELLING. 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 TENTATIVE RETURN TO WORK PENDING AUG 2020. Disability: NO. Present symptoms: INTERMITTENT LEFT LATERAL SHOULDER AND CHEST PAIN. INTERMITTENT TINGLING AND CRAMPING IN FINGERS - IMPROVING. Present since: JANUARY 11 2020. Pain Scale: Worst - 7/10 Least - 0/10. Currently: 0/10. Commenced as a result of: BENDING OVER REACHING USING DRILL TO TAKE SHELF OFF THE WALL AND LIFTING HEAVY SHELVES. Symptoms at onset: LOUD POP AND LEFT UE PAIN, NUMBNESS AND TINGLING TO THE FINGERS. Disturbed sleep: YES. SLEEPING BETWEEN BED AND COUCH. Previous history/Previous treatment: NO PRIOR LEFT SHOULDER INJURY OR TREATMENT. This episode: JUN 11 2020 - ROTATOR CUFF REPAIR AND BICEPTS TENODESIS. PATIENT DENIES ANY COMPLICATIONS. Dizziness: NO. Tinnitis: NO. Nausea: NO. Shortness of Breath: NO. Difficulty Swollowing: NO. Accidents: UNREMARKABLE. Unexplained weight loss: NO. Imaging: MRI PRIOR TO SURGERY. PMH/Recent major surgery: RIGHT SHLD SURGERY ABOUT A YEAR AGO FOLLOWED BY REHAB HERE AT [facility]. RESTRICTIONS: PATIENT REPORTS HE IS ALLOWED TO SIT AT HOME WITH HIS LEFT ARM OUT OF THE SLING, DO ACTIVE BICEP CURLS AND PENDULUMS BUT NOTHING ELSE WITH LEFT UE. - Objective THIS PATIENT AMBULATES INDEP'LY INTO PT WITH LEFT UE SLING. HE IS ABLE TO DOFF SLING INDEP'LY BUT ASSISTS IN DAWNING SLING. NICHOLAS UE LIGHT TOUCH SENSATION IS INTACT AND SYMMETRICAL. THERE IS MILD LEFT ELBOW TENDERNESS AND EDEMA. INSTRUCTED PATIENT TO CONTACT SURGEONS OFFICE IF THIS WORSENS OR DOES NOT RESOLVE. PATIENT HAS FULL AROM OF LEFT ELBOW, FOREARM, WRIST AND HAND WITHOUT C/O PAIN. INCISIONS LOOK GREAT WITHOUT ANY SIGNS OF INFECTION. PROM OF LEFT SHOULDER IN SUPINE = 90 DEG FLEXION AND 10 DEG EXTERNAL ROTATION. PATIENT IS ABLE TO TRANSFER INDEP'LY FROM SIT TO SUPINE AND REVERSE WITHOUT USING LEFT UE. HEP INSTRUCTION: AROM OF LEFT ELBOW, FOREARM, WRIST AND HAND. PASSIVE LEFT UE PENDULUM EX CW AND CCW SITTING AND/OR STANDING WITH BACK PROTECTION. - Goals Goal 1:: INCREASE FUNCTIONAL ROM OF LEFT UE ALLOWED BY PROTOCOL TO EASE ADL'S AND PROGRESS TOWARD RETURN TO WORK. Goal Time Frame: 4-6 Weeks Goal 2:: INCRASE FUNCTIONAL STRENGTH OF LEFT UE ALLOWED BY PROTOCOL TO EASE ADL'S AND PROGRESS TOWARD RETURN TO WORK. Goal Time Frame: 4-6 Weeks Goal 3:: PATIENT WILL BE INDEP WITH A HEP FOR CONTINUED IMRPOVEMENT ONCE FORMAL PHYSICAL THERAPY CONDLUDES. Goal Time Frame: 4-6 Weeks Goal 4:: DECREASE C/O LEFT UE PAIN. Goal Time Frame: 4-6 Weeks - Anticipated Interventions Patient/Client Instruction: Educate patient on: Condition, Plan of Care, Risk Factors, Benefits of Fitness Program For the Purpose of:: To improve self management Therapeutic Exercise to Include: Strength training, Body mechanics, Postural training, Flexibilty training, Neuromotor development, Passive ROM, Active ROM, Scapular Strength/Stabilization Comment: PER PROTOCOL. NO ER PAST 30 DEG. For the Purpose of:: To decrease pain, To increase ROM, To improve muscle performance and motor function, To increase tolerance to activity/condition/position, To improve ability of physical actions for home/community/work/leisure Cryotherapy (ice pack, ice massage): Yes Thermo therapy (hot pack): Yes For the Purpose of:: To decrease pain, To decrease swelling/inflammation, To improve nutrient delivery to tissue Thank you for the opportunity to evaluate your patient. For Medicare and Medicare HMO plans, please review the plan of care and approve it. It will need to be FAXED BACK to us at [phone] for Medicare purposes. For Medicare only, by signing this I certify the plan of care. Please let me know if there are questions or concerns regarding this plan of care. Physician Signature: Date:
--- NOTE | 2020-07-28 12:51 | HP.PTREVAL ---
Dr. Peggy Loving, DO, It has been my pleasure to treat NORY ZAPIEN over the last 10 visits for S/P BICEPS TENOTOMY, SAD/ACROMIOPLASTY, SUBSCAP REPAIR 06/11/20. Please see the progress note below for an update on the physical therapy plan of care! Subjective: TENTATIVE RTW DATE TO BE DETERMINED IN 4-6 WKS. PATIENT REPORTS ACHING IN THE SHOULDER AREA. 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 Objective/Function: PATIENT WAS SEEN TODAY FOR RE-ASSESSMENT OF PROGRESS TOWARD THE SET PT GOALS AND THE NEED FOR FURTHER PHYSICAL THERAPY VS READINESS FOR DISCHARGE. PATIENT IS MAKING GOOD PROGRESS TOWARD ALL PT GOALS. PATIENT COMMUNICATES A GOOD UNDERSTANDING OF HIS HEP AND IS GOING TO PURCHASE A [employer] FOR HOME. UPON EXAM TODAY, PROM OF LEFT SHOULDER IS FOLLOWS: FLEX 130 DEG. ABD 120 DEG. ER 30 DEG AT 60 DEG ABD. HIS LEFT ELBOW IS STILL A LITTLE SWOLLEN AND SENSATIVE BUT SEEMS TO BE IMPROVING SINCE OUT OF THE SLING. Plan Plan: PT PER ROTATOR CUFF REPAIR PROTOCOL IN FOLDER IN WORKROOM. CONTINUE TO MONITOR LEFT ELBOW PAIN AND SWELLING. Goals Goal 1:: INCREASE FUNCTIONAL ROM OF LEFT UE ALLOWED BY PROTOCOL TO EASE ADL'S AND PROGRESS TOWARD RETURN TO WORK. Goal Time Frame: 4-6 Weeks Goal 2:: INCRASE FUNCTIONAL STRENGTH OF LEFT UE ALLOWED BY PROTOCOL TO EASE ADL'S AND PROGRESS TOWARD RETURN TO WORK. Goal Time Frame: 4-6 Weeks Goal 3:: PATIENT WILL BE INDEP WITH A HEP FOR CONTINUED IMRPOVEMENT ONCE FORMAL PHYSICAL THERAPY CONDLUDES. Goal Time Frame: 4-6 Weeks Goal 4:: DECREASE C/O LEFT UE PAIN. Goal Time Frame: 4-6 Weeks Anticipated Interventions Patient/Client Instruction: Educate patient on: Condition, Plan of Care, Risk Factors, Benefits of Fitness Program For the Purpose of:: To improve self management Therapeutic Exercise to Include: Strength training, Body mechanics, Postural training, Flexibilty training, Neuromotor development, Passive ROM, Active ROM, Scapular Strength/Stabilization Comment: PER PROTOCOL. NO ER PAST 30 DEG. For the Purpose of:: To decrease pain, To increase ROM, To improve muscle performance and motor function, To increase tolerance to activity/condition/position, To improve ability of physical actions for home/community/work/leisure Cryotherapy (ice pack, ice massage): Yes Thermo therapy (hot pack): Yes For the Purpose of:: To decrease pain, To decrease swelling/inflammation, To improve nutrient delivery to tissue Please do not hesitate to contact me at [phone] by phone or if you have questions or concerns regarding this new plan of care! Sincerely, Nusrat Ovalle, PT, Cert MDT
--- NOTE | 2020-11-12 11:02 | HP.PT.NRP ---
NORY ZAPIEN was seen in my office for initial evaluation on 07/03/20. The following Plan of Care was established for this patient: Initial Frequency: 2-3x /Week Initial Duration: 4-6 Weeks Patient/Client Instruction: Educate patient on: Condition, Plan of Care, Risk Factors, Benefits of Fitness Program For the Purpose of:: To improve self management Therapeutic Exercise to Include: Strength training, Body mechanics, Postural training, Flexibilty training, Neuromotor development, Passive ROM, Active ROM, Scapular Strength/Stabilization For the Purpose of:: To decrease pain, To increase ROM, To improve muscle performance and motor function, To increase tolerance to activity/condition/position, To improve ability of physical actions for home/community/work/leisure Cryotherapy (ice pack, ice massage): Yes Thermo therapy (hot pack): Yes For the Purpose of:: To decrease pain, To decrease swelling/inflammation, To improve nutrient delivery to tissue This patient was last seen in our office 09/29/20. Pertinent comments regarding their Physical therapy will appear below: This patient has not returned to Physical Therapy and is appropriate to return to MD for further follow-up as needed. At this point I will be discontinuing this patient from physical therapy. I would be happy to see this patient again in the future if found appropriate by the physician. Thank you! Nusrat Ovalle, PT, Cert MDT
== END 2020-09-29 19:00 | disposition home or self-care (01) ==
LOC: PT 16:00
PROVIDERS: PCP Family Medicine; Referring Provider Orthopaedic Surgery; Visit Provider Orthopaedic Surgery
DX: S46.012D Strain of muscle(s) and tendon(s) of the rotator cuff of left shoulder, subsequent encounter (principal)
CPT/HCPCS: 97110; 97140; 97161; 97164; 97530

== ENCOUNTER → 2020-10-20 12:24 | Outpatient (CLI) | payer OTHER, SELFPAY ==
--- NOTE | 2020-10-20 12:25 | US_ITS ---
STUDY: SUPERFICIAL ULTRASOUND - LEFT UPPER ARM. REASON FOR EXAM: Male, 55 years old. PALPABLE LUMPS IN LT UPPER ARM TECHNIQUE: A superficial ultrasound was performed with real-time and static jaramillo-scale imaging. COMPARISON: None. FINDINGS: The palpable abnormalities were examined by ultrasound. No sonographic abnormality is seen. Along the posterior distal aspect of the arm, there is a 1.3 cm x 1.3 cm x 0.7 cm hyperechoic nodular density. This may represent a lipoma. Correlation with a CT scan or MR is recommended. US/Ext Non Vasc Limited/Soft Tiss IMPRESSION: 1.3 cm x 1.3 cm x 0.7 cm echogenic nodule along the posterior mid distal portion of the left arm as described. Correlation with a CT scan or MRI is recommended for further evaluation Electronically Signed: Mac Dominguez, at 10:19 EST , Service support ,
== END ==
PROVIDERS: PCP Family Medicine; Referring Provider Physician Assistant; Visit Provider Physician Assistant
DX: R22.32 Localized swelling, mass and lump, left upper limb (principal)
CPT/HCPCS: 76882

== ENCOUNTER → 2020-11-06 07:57 | Outpatient (CLI) | payer OTHER, SELFPAY ==
--- NOTE | 2020-11-06 07:58 | MRI_ITS ---
STUDY: MRI UPPER EXTREMITY LEFT HUMERUS WITH T WITHOUT CONTRAST REASON FOR EXAM: Male, 55 years old. nodules l left upper arm, f/u to us, areas marked with oil capsules TECHNIQUE: Standardized fat and water weighted pulse sequences were obtained in all 3 orthogonal planes, pre-and post contrast administration. IV 20cc dotarem was administered for the contrast portion of the examination. COMPARISON: Ultrasound 10/20/2020 FINDINGS: Normal subcutis adipose space. There is no demonstrated solid, cystic, or lipomatous mass within the subcutaneous adipose space. Normal visualized muscles and fascia. Normal visualized neurovascular bundles. Normal humerus. MRI/Upper Ext No Joint W/WO Cont IMPRESSION: Normal unenhanced and enhanced MRI of the upper extremity. However, an encapsulated lipoma may be MR occult. Electronically Signed: Colby Michael MD at 14:57 EST Tel , Service support ,
== END ==
PROVIDERS: PCP Family Medicine; Referring Provider Physician Assistant; Visit Provider Physician Assistant
DX: R93.89 Abnormal findings on diagnostic imaging of other specified body structures (principal); M79.89 Other specified soft tissue disorders
CPT/HCPCS: 73220; A9575

== ENCOUNTER 2020-12-23 13:40 | Outpatient (RCR) | payer OTHER, SELFPAY ==
[2020-06-24 10:03] VITALS: BMI 34.4
--- NOTE | 2020-12-23 15:47 | HP.OTFCE_ITS ---
Floor (Occasional 1-33% of Day): 85# Floor (Frequent 34-66% of Day): 42# Floor (Constant 67-100% of Day): 18# Floor PDL: Medium-Heavy Knee (Occasional 1-33% of Day): 85# Knee (Frequent 34-66% of Day): 42# Knee (Constant 67-100% of Day): 18# Knee PDL: Medium-Heavy Waist (Occasional 1-33% of Day): 65# Waist (Frequent 34-66% of Day): 33# Waist (Constant 67-100% of Day): 13# Waist PDL: Medium-Heavy Shoulder (Occasional 1-33% of Day): 55# Shoulder (Frequent 34-66% of Day): 28# Shoulder (Constant 67-100% of Day): 14# Shoulder PDL: Medium-Heavy Overhead (Occasional 1-33% of Day): 20# Overhead (Frequent 34-66% of Day): 10# Overhead (Constant 67-100% of Day): na Overhead PDL: Light Comments: Pt demonstrates good lifting mechanics throughout assessment. No report of pain while performing assessment. Bending: Frequent Ability (34-66% of day) Squatting: Frequent Ability (34-66% of day) Kneeling: Frequent Ability (34-66% of day) Reaching out: Frequent Ability (34-66% of day) Reaching up: Frequent Ability (34-66% of day) Sitting: Frequent Ability (34-66% of day) Walking: Constant Ability (67-100% of day) Comments: with shifting body weight Standing: Constant Ability (67-100% of day) Comments: with shifting body weight Duration Sedentary Sedentary Light Light Light Medium Medium Medium Heavy Very Heavy Heavy Occasional (0-33% of day) Frequent (34-66% of day) Constant (67-100% of day) 10 # Negligible Negligible 15 # 8 # Negligible 20 # 10# Negli. 35 # 18 # 7 # 50 # 25 # 10 # 75 # 100 # >100 # 38 # 50 # >50 # 15 # 20 # >20 # Height: 1.8 m Weight:: 104.326 kg Hand Dominance: right Medical History Including Restrictions: Pt reports he was in good health until he had a right rotator cuff injury about a year and a half ago. States he made full recovery. Pt states he tore his left rotator cuff on 01/11/20 while at work. Pt states he was working overhead and felt a pop. Pt went to ER and due to covid restrictions was unable to have surgery until 2019. Pt states sx was on 06/11/20 and followed with physical therapy. pt states he returned to work light duty for two months and now has returned to his reg. work duties. pt states he feels he is doing fine. He currently is on no restrictions. Diagnoses: left rotator cuff tear/ repair. right rotator cuff tear/repair Symptoms: pt states he feels popping from time to time nothing consistent. pain only after exercises or after working overhead. Pain: pt reports no pain currently. States he does get some soreness depending on what he does at work. -12/17 and will take Advil. Pt reports he is continuing performing his HEP that he was given from physical therapy. Work History: Pt. 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 Pt states he is on his feet standing/walking daily for more than 10,000 steps a day. Pt does push/pull and lift 75#-100# at times but with other staff with him. Pt reports use of UE at waist, shoulder and overhead levels. Pt states he returned to work at regular duty 8 weeks ago and has not had difficulty with tasks. Pt states he has some soreness with overhead work like lighting. Behavioral: Pt cooperative and put forth full effort during assessment. ADLS: Pt reports he is independent with all ADLs and IADLs. Pt reports he is driving, cleaning, cooking, and grocery shopping without limitations. ROM: pt demonstrates upper extremity ROM is WNL. Pt demo LE, lumbar, cervical, and thoracic spine ROM WNL Strength: Pt demonstrates with right UE MMT at 5/5 left 4+/5 grossly throughout. Pt demonstrates bilateral LE MMT at 5/5 Right Automobile Leasing Supervisor Strength Average: 136.66 Right Automobile Leasing Supervisor Strength Percentile: 77% Left Automobile Leasing Supervisor Strength Average: 120.00 Left Automobile Leasing Supervisor Strength Percentile: 70% Right Lateral Pinch Average: 31.33 Right Lateral Pinch Percentile: >90% Left Lateral Pinch Average: 28.66 Left Lateral Pinch Percentile: >90% Right Tripod Pinch Average: 31.33 Right Tripod Pinch Percentile: >90% Left Tripod Pinch Average: 28.00 Left Tripod Pinch Percentile: >90% Sensation: denies Fine Motor: deines Balance: denies Bending: Pt demonstrated the ability to bend forward three times, ten times and ten times rapidly without difficulty or complaints of discomfort. Pt can bend forward on a frequent ability. Squatting: Pt demonstrated the ability to squat three times, ten times and ten times rapidly without difficulty or complaints of discomfort. Pt can squat on a frequent ability. Kneeling: pt demo the ability to kneel three times, ten times and ten times rapidly. pt can kneel on frequent ability. Reaching out/up: pt demo the ability to reach out/up three times, ten times and ten rapidly. pt reports pain in left latissimus/ thoracic region reporting 1/10 with reaching up pt can reach up/out on a frequent ability. Walking: no issues with ambulation. pt reports he walks over 10,000 steps a day without difficult or concerns. States he only sits for his lunch break. pt can ambulate on constant ability. Standing: pt reports he has no issues with standing can stand for over 8 hours allowing for wt. shift. pt can stand on constant ability with shifting body weight. Sitting: pt reports no issues with sitting. pt demo the ability to sit for 30 min with no expressed or apparent discomfort. pt can sit on a frequent ability. Climbing Stairs: pt demo the ability to ascend and descend 10 stairs with a reciprocal step pattern with good ability. Floor Lift: Pt demonstrated the ability to lift 85# from lift level with good ability and good lifting mechanics Knee Lift: Pt demonstrated the ability to lift 85# from lift level with good ability and good lifting mechanics Waist Lift: Pt demonstrated the ability to lift 65# from this level with good ability and good lifting mechanics Shoulder Lift: Pt demonstrated the ability to lift 55# from this level with good ability and good lifting mechanics Overhead Lift: Pt demonstrated the ability to lift 20# from this level with good ability and good lifting mechanics Carrying: pt demonstrated the ability to carry 40# for 40 feet with good ability. Comments: 30# push with good abiltiy. pt demonstrated no apparent discomfort or difficulty with assessment.
--- NOTE | 2020-12-23 15:47 | HP.OTFCE.D ---
FCE D/C Summary - Discharge NORY ZAPIEN was seen for a one time visit for an FCE on 12/23/20 and is discharged.
== END 2020-12-23 19:00 | disposition home or self-care (01) ==
LOC: OT 13:40
PROVIDERS: PCP Family Medicine; Referring Provider Orthopaedic Surgery; Visit Provider Orthopaedic Surgery
DX: S46.012D Strain of muscle(s) and tendon(s) of the rotator cuff of left shoulder, subsequent encounter (principal)
CPT/HCPCS: 97750

== ENCOUNTER → 2020-12-24 08:49 | Outpatient (CLI) | payer OTHER, SELFPAY ==
[2020-06-24 10:03] VITALS: BMI 34.4
[2020-12-24 09:44] LABS: Hemoglobin A1c 5.9 % (3.8-5.6)
[2020-12-24 09:59] LABS: Anion Gap 2 (5-15); BUN 19 mg/dL (7-18); Calcium,Total 8.9 mg/dL (8.5-10.1); Chloride 103 mmol/L (98-107); Cholesterol 232 mg/dL (200); Creatinine, Serum 0.95 mg/dL (0.70-1.30); EST Glomerular Filtration Rate 88 mL/min (>60); Est Glom Filt Rate - Afr Amer 107 mL/min (>60); Glucose 127 mg/dL (74-106); High Density Lipoprotein 43 mg/dL; PSA,Total - Annual Screen 0.34 ng/mL (0.00-4.00); Potassium 3.9 mmol/L (3.5-5.1); Sodium Level 137 mmol/L (136-145); Triglycerides 216 mg/dL; Very Low Density Lipoprotein 43 mg/dL (5-40)
== END ==
PROVIDERS: PCP Family Medicine; Referring Provider Family Medicine; Visit Provider Family Medicine
DX: E78.5 Hyperlipidemia, unspecified (principal); Z12.5 Encounter for screening for malignant neoplasm of prostate; E11.9 Type 2 diabetes mellitus without complications
CPT/HCPCS: 36415; 80048; 80061; 83036; 84153; G0103

== ENCOUNTER → 2021-07-16 08:45 | Outpatient (CLI) | payer OTHER, SELFPAY ==
[2021-07-16 09:33] LABS: Hemoglobin A1c 7.7 % (3.8-5.6)
== END ==
PROVIDERS: PCP Family Medicine; Visit Provider Family Medicine
DX: E11.9 Type 2 diabetes mellitus without complications (principal); I10 Essential (primary) hypertension; E78.5 Hyperlipidemia, unspecified
CPT/HCPCS: 36415; 83036

== ENCOUNTER → 2021-07-24 07:22 | Outpatient (CLI) | payer OTHER, SELFPAY ==
[2021-07-24 09:40] LABS: Hemoglobin 14.4 g/dL (13.0-16.5); Mean Corp Hgb Conc 33.5 g/dL (32-36); Mean Corpuscular Hgb 30.1 pg (27.0-32.0); Mean Corpuscular Volume 89.8 fL (80-94); Mean Platelet Vol. 9.3 fl (6.2-12.0); Platelet Count 307 K/mm3 (150-450); RBC Distribution Width CV 12.3 % (11.6-14.6); RBC Distribution Width SD 40.4 fl (35.1-43.9); Red Blood Count 4.79 M/mm3 (4.6-6.2); White Blood Count 6.5 K/mm3 (4.4-11.0)
[2021-07-24 10:03] LABS: Microalbumin,Random Urine 19.6 mg/L (NO RANGE EST.); Microalbumin:Creatinine Ratio 7.3 mg/g CRE (<30 mg/g CRE)
[2021-07-24 10:28] LABS: ALB/GLOB Ratio 1.2 RATIO (0.9-2.4); AST(SGOT) 13 U/L (15-37); Alanine Aminotransfer ALT/SGPT 40 U/L (16-61); Albumin, Serum 3.8 g/dL (3.2-5.0); Alkaline Phosphatase 58 U/L (45-117); Anion Gap 6 (5-15); BUN 15 mg/dL (7-18); BUN/Creat Ratio 16.9 RATIO (10-20); Calcium,Total 8.9 mg/dL (8.5-10.1); Chloride 104 mmol/L (98-107); Creatinine, Serum 0.89 mg/dL (0.70-1.30); EST Glomerular Filtration Rate 95 mL/min (>60); Est Glom Filt Rate - Afr Amer 115 mL/min (>60); Globulin 3.3 g/dL (2.2-4.2); Glucose 170 mg/dL (74-106); Protein, Total 7.1 g/dL (6.4-8.2); Sodium Level 138 mmol/L (136-145)
== END ==
PROVIDERS: PCP Family Medicine; Referring Provider Family Medicine; Visit Provider Family Medicine
DX: E11.9 Type 2 diabetes mellitus without complications (principal)
CPT/HCPCS: 36415; 80053; 82043; 82570; 85027

== ENCOUNTER 2021-12-03 08:29 | Outpatient (CLI) | payer OTHER, SELFPAY ==
[2021-12-03 10:03] LABS: Hemoglobin A1c 7.6 % (3.8-5.6)
[2021-12-03 10:24] LABS: ALB/GLOB Ratio 1.2 RATIO (0.9-2.4); AST(SGOT) 16 U/L (15-37); Alanine Aminotransfer ALT/SGPT 32 U/L (16-61); Albumin, Serum 3.8 g/dL (3.2-5.0); Alkaline Phosphatase 55 U/L (45-117); Anion Gap 5 (5-15); BUN 13 mg/dL (7-18); BUN/Creat Ratio 14.5 RATIO (10-20); Calcium,Total 8.7 mg/dL (8.5-10.1); Chloride 102 mmol/L (98-107); Cholesterol 130 mg/dL (200); EST Glomerular Filtration Rate 94 mL/min (>60); Est Glom Filt Rate - Afr Amer 113 mL/min (>60); Globulin 3.3 g/dL (2.2-4.2); Glucose 154 mg/dL (74-106); High Density Lipoprotein 41 mg/dL; Magnesium 1.9 mg/dL (1.6-2.6); Potassium 3.9 mmol/L (3.5-5.1); Protein, Total 7.1 g/dL (6.4-8.2); Sodium Level 137 mmol/L (136-145); Triglycerides 211 mg/dL; Very Low Density Lipoprotein 42 mg/dL (5-40)
== END 2021-12-03 23:59 | disposition short-term general hospital (02) ==
LOC: LAB 08:31
PROVIDERS: PCP Family Medicine; Referring Provider Nurse Practitioner Primary Care; Visit Provider Nurse Practitioner Primary Care
DX: R07.9 Chest pain, unspecified (principal); E11.9 Type 2 diabetes mellitus without complications; E78.5 Hyperlipidemia, unspecified
CPT/HCPCS: 36415; 80053; 80061; 83036; 83735

== ENCOUNTER 2021-12-07 14:20 | Outpatient (CLI) | payer OTHER, SELFPAY ==
--- NOTE | 2021-12-07 14:22 | CDU_ITS ---
Reason For Study: Dizziness Rt. Velocities/BP Lt. Velocities/BP Prox CCA 119.1/18.6 cm/sec. Prox CCA 104.7/17 cm/sec. Mid CCA 95.6/23.9 cm/sec. Mid CCA 90/17 cm/sec. Dist CCA 77.3/16 cm/sec. Dist CCA 82.7/18.8 cm/sec. Prox ICA 77.5/18.2 cm/sec. Prox ICA 91.9/18.8 cm/sec. Mid ICA 75.4/26.1 cm/sec. Mid ICA 59.3/20 cm/sec. Dist ICA 80.9/20.6 cm/sec. Dist ICA 65.5/23.7 cm/sec. Rt. ICA/CCA = 0.85. Lt. ICA/CCA = 1.02. Prox ECA 152.1/11.6 cm/sec. Prox ECA 137.5/13.3 cm/sec. Rt. Vert. 70/20.6 cm/sec. Lt. Vert. 49.4/8.8 cm/sec. Right Extracranial There is homogeneous, smooth atherosclerotic plaque noted in the right common carotid artery. There is intimal thickening but no significant atherosclerotic plaque noted in the right internal carotid artery. There is no significant atherosclerotic plaque noted in the right external carotid artery. Antegrade flow is noted in the right vertebral artery. Left Extracranial There is homogeneous, smooth atherosclerotic plaque noted in the left common carotid artery. There is heterogeneous, irregular atherosclerotic plaque noted in the left internal carotid artery. There is intimal thickening but no significant atherosclerotic plaque noted in the left external carotid artery. Antegrade flow is noted in the left vertebral artery. Procedure Carotid Duplex 10233. This is a Carotid Duplex examination using B-mode, color flow and specral Doppler. Exam performed in department. VL/Carotid Duplex Ultrasound Interpretation Summary Intimal thickening at the proximal right internal carotid artery with less than 50% stenosis Less than 50% stenosis right external carotid artery Minimal irregular plaque at the proximal left internal carotid artery with less than 50% stenosis Less than 50% stenosis left external carotid artery Patent and antegrade vertebral arteries bilaterally Ordering Physician: Charu Pérez Referring Physician: Vlad Perry Performed By: Amy Swan RVT
--- NOTE | 2021-12-07 14:22 | ECHOD_ITS ---
Reason For Study: CHEST PAIN Procedure This was a 2D Doppler, Color Flow transthoracic echocardiogram. Exam performed in department. Left Ventricle Normal LV size. Mild concentric left ventricular hypertrophy. Left ventricular systolic function is normal. The estimated ejection fraction is 55 %. No regional wall motion abnormalities noted. Right Ventricle Normal RV size. Normal systolic function. Mitral Valve Normal mitral valve. Tricuspid Valve Normal tricuspid valve. Mild tricuspid valve insufficiency. Pulmonary artery systolic pressure is 22 mmHg. Aortic Valve Normal aortic valve. Trisinus/trileaflet aortic valve. Pulmonic Valve Normal pulmonic valve. Great Vessels Normal aortic root. The pulmonary artery is normal size. Normal inferior vena cava. Pericardium/Pleural No pericardial effusion. MMode/2D Measurements & Calculations LVIDd: 5.2 cm IVSd: 1.2 cm Ao root diam: 3.5 cm LVIDs: 3.8 cm LVPWd: 1.2 cm RVDd: 3.8 cm FS: 27.0 % LAV(MOD-bp): 69.7 ml LA A4 area: 21.8 cm2 LA dimension(2D): 4.6 cm LAV(MOD-bp) Indexed: 31.3 ml/m2 LAV(MOD-sp2): 65.8 ml LAV(MOD-sp4): 73.7 ml RA A4 area: 20.2 cm2 Time Measurements MV dec time: 0.18 sec Doppler Measurements & Calculations MV E max cedric: 87.2 cm/sec Lat Peak E' Cedric: 9.7 cm/sec Med Peak E' Cedric: 8.3 cm/sec MV A max cedric: 66.5 cm/sec E/E' lat: 9.0 E/E' med: 10.6 MV E/A: 1.3 Ao V2 max: 144.5 cm/sec LV V1 max: 119.0 cm/sec PA V2 max: 132.7 cm/sec Ao max P.4 mmHg LV V1 max P.7 mmHg TR max cedric: 212.5 cm/sec TR max P.1 mmHg ECHO/Echo Complete Interpretation Summary Normal LV size. Mild concentric left ventricular hypertrophy. Left ventricular systolic function is normal. The estimated ejection fraction is 55 %. Pulmonary artery systolic pressure is 22 mmHg. Ordering Physician: Charu Pérez Referring Physician: Charu Pérez Performed By: Arielle Bright RDCS, RVT
== END 2021-12-07 23:59 | disposition short-term general hospital (02) ==
LOC: CVS 14:20
PROVIDERS: PCP Family Medicine; Referring Provider Nurse Practitioner Primary Care; Visit Provider Nurse Practitioner Primary Care
DX: R07.9 Chest pain, unspecified (principal); R42 Dizziness and giddiness; G45.9 Transient cerebral ischemic attack, unspecified; R47.9 Unspecified speech disturbances
CPT/HCPCS: 93306; 93880

== ENCOUNTER 2021-12-08 10:49 | Outpatient (CLI) | payer OTHER, SELFPAY ==
--- NOTE | 2021-12-08 12:20 | STRESSREP ---
Stress Test Report Exercise stress test. 56-year-old man with a history of dizziness and chest pain. Stress protocol: Resting EKG demonstrates normal sinus rhythm with a rate of 71 bpm. Resting blood pressure is 160/88 mmHg. The patient exercised according to regular Christian protocol for total duration of 3 minutes. The maximum heart rate was 127 bpm which was 76% of max impact at heart rate the maximum blood pressure was 250/72 mmHg necessitating termination of the test prematurely. The maximum workload was 4.6 metabolic equivalents. The patient was noted to be short of breath, no arrhythmias were noted and no chest pain was noted. There were no EKG changes noted suggest ischemia. Conclusion: Exercise stress test which is suboptimal due to low exercise capacity. Hypertensive response to exercise
--- NOTE | 2021-12-08 15:26 | MRI_ITS ---
EXAM: MR HEAD WITHOUT INTRAVENOUS CONTRAST CLINICAL INDICATION: TIA H/A,HTN, chest pressure TECHNIQUE: Multiplanar and multisequence MR images of the brain were obtained without intravenous contrast. This report was created using [employer] report [email or web address] technology. COMPARISON: None. FINDINGS: BRAIN AND EXTRA-AXIAL SPACES: Unremarkable. No intra- or extra-axial hemorrhage. No evidence of acute infarct. No intracranial mass or mass effect. There is preservation of the jaramillo/white matter interface. Posterior fossa structures are unremarkable. Ventricles are appropriate for age. No hydrocephalus. Basal cisterns are patent. SELLA: Unremarkable. Normal sella turcica, pituitary gland, infundibular stalk, optic chiasm and hypothalamus. AUDITORY SYSTEM: Unremarkable. The internal auditory canals are patent. BONES/JOINTS: Unremarkable. No discrete lytic or blastic abnormalities. SINUSES: Unremarkable as visualized. Clear. MASTOID AIR CELLS: Unremarkable as visualized. Clear. ORBITS: Unremarkable as visualized. Both globes, extraocular muscles, optic nerves and retrobulbar fat appear unremarkable. VASCULATURE: Unremarkable as visualized. Normal flow voids in the major intracranial circulation. MRI/Brain without Contrast IMPRESSION: Negative MRI brain without intravenous contrast. Electronically Signed: Leo Bazan MD at 16:26 EST ,
== END 2021-12-08 23:59 | disposition short-term general hospital (02) ==
PROVIDERS: PCP Family Medicine; Referring Provider Nurse Practitioner Primary Care; Visit Provider Nurse Practitioner Primary Care
DX: R42 Dizziness and giddiness (principal); R07.89 Other chest pain; I10 Essential (primary) hypertension; Z86.73 Personal history of transient ischemic attack (TIA), and cerebral infarction without residual deficits
CPT/HCPCS: 70551; 93017

== ENCOUNTER → 2022-03-03 | Outpatient (CLI) | payer OTHER, SELFPAY ==
[2022-03-03 08:47] LABS: ALB/GLOB Ratio 1.4 RATIO (0.9-2.4); AST(SGOT) 16 U/L (15-37); Alanine Aminotransfer ALT/SGPT 32 U/L (16-61); Albumin, Serum 4.1 g/dL (3.2-5.0); Alkaline Phosphatase 47 U/L (45-117); Anion Gap 7 (5-15); BUN 21 mg/dL (7-18); BUN/Creat Ratio 21.1 RATIO (10-20); Calcium,Total 8.8 mg/dL (8.5-10.1); Chloride 103 mmol/L (98-107); Cholesterol 126 mg/dL (200); EST Glomerular Filtration Rate 83 mL/min (>60); Est Glom Filt Rate - Afr Amer 100 mL/min (>60); Glucose 136 mg/dL (74-106); High Density Lipoprotein 40 mg/dL; Potassium 4.2 mmol/L (3.5-5.1); Protein, Total 7.1 g/dL (6.4-8.2); Sodium Level 140 mmol/L (136-145); Triglycerides 130 mg/dL; Very Low Density Lipoprotein 26 mg/dL (5-40)
== END | disposition home or self-care (01) ==
LOC: LAB 07:38
PROVIDERS: PCP Family Medicine; Referring Provider Nurse Practitioner Primary Care; Visit Provider Nurse Practitioner Primary Care
DX: I10 Essential (primary) hypertension (principal); E11.9 Type 2 diabetes mellitus without complications; R07.9 Chest pain, unspecified; E78.5 Hyperlipidemia, unspecified
CPT/HCPCS: 36415; 80053; 80061; 83036; 83735

== ENCOUNTER → 2022-08-05 | Outpatient (CLI) | payer OTHER, SELFPAY ==
[2022-08-05 09:46] LABS: Hemoglobin A1c 6.7 % (3.8-5.6)
[2022-08-05 09:48] LABS: Vitamin D,25 Hydroxy 26.1 ng/mL
[2022-08-05 09:59] LABS: PSA,Total - Annual Screen 0.35 ng/mL (0.00-4.00); Thyroid Stim Hormone (TSH) 1.26 uIU/mL (0.358-3.74)
== END | disposition home or self-care (01) ==
LOC: LAB 08:46
PROVIDERS: Nurse Practitioner Family; PCP Family Medicine; Referring Provider Nurse Practitioner Primary Care; Visit Provider Nurse Practitioner Primary Care
DX: Z12.5 Encounter for screening for malignant neoplasm of prostate (principal); E11.9 Type 2 diabetes mellitus without complications
CPT/HCPCS: 36415; 82306; 83036; 84153; 84443; G0103

== ENCOUNTER 2022-10-22 22:24 | Inpatient (IN) | payer OTHER, SELFPAY ==
[2022-10-22 22:25] VITALS: BP 198/127; PULSE 150; RESP 18; TEMP 36.4; O2SAT 96; BMI 32.8
--- NOTE | 2022-10-22 22:43 | EKG12_ITS ---
Test Reason : DYSRHYTHMIA Blood Pressure : / mmHG Vent. Rate : 137 BPM Atrial Rate : 192 BPM P-R Int : 000 ms QRS Dur : 096 ms QT Int : 312 ms P-R-T Axes : 000 014 -69 degrees QTc Int : 471 ms Atrial fibrillation Nonspecific ST and T wave abnormality Abnormal ECG Confirmed by JARETH GONZALEZ, BALDO ([id number]), editor trade journal [employer] ([id number]) on 10/25/2022 1:05:14 PM Referred By: Angelica Johnson Confirmed By:BALDO TEMPLETON MD
[2022-10-22 22:46] VITALS: O2SAT 96
--- NOTE | 2022-10-22 22:46 | ED.VIS.CHEST ---
HPI History of Present Illness Chief Complaint: Palpitations Informant: patient Narrative Narrative: Patient actually presents with more palpitations and chest pain. He states he has gotten some chest pain but it is sharp intermittent anteriorly and not associated with nausea vomiting diaphoresis shortness of breath or specifically exertion. He had an episode of chest pain in November in [place]. He was evaluated out there and then came home to have a stress test that showed no issues per him. He has been feeling fine since. He states this evening he had's couple episodes of chest pain but what really brought him in is that he noticed his blood pressure was up at home and his heart rate was high. He has never been told he has had atrial fibrillation or any heart rate changes. He was not told this in [place]. There have been no recent change in his medicines. He did just recently get over COVID and had been on Coricidin but is no longer taking that. No hemoptysis. No leg pain or swelling. He has not coughing or having trouble breathing. He is not having chest pain now. He does still feel the high heart rate. His last alcohol was 3 weeks ago. He rarely drinks. [facility] Medical History Diabetes mellitus type II, controlled Essential hypertension Hyperlipidemia PEÑA (nonalcoholic steatohepatitis) Home Medications atorvastatin 40 mg tablet 40 mg PO DAILY 02/03/22 [History Last Taken Unknown] metformin 1,000 mg tablet 1,000 mg PO BIDWMEAL 02/03/22 [History Last Taken Unknown] pioglitazone 45 mg tablet 45 mg PO DAILY 02/03/22 [History Last Taken Unknown] hydrochlorothiazide 12.5 mg capsule 12.5 mg PO DAILY 02/17/22 [History Last Taken Unknown] losartan 50 mg tablet 50 mg PO DAILY 02/17/22 [History Last Taken Unknown] Allergy/AdvReac Type Severity Reaction Status Date / Time lisinopril AdvReac Intermediate Dry Cough Verified 10/22/22 22:27 Family History Mother COPD (chronic obstructive pulmonary disease) Father Cancer CAD (coronary artery disease) Brother Diabetes AA (alcohol abuse) Surgical History Biceps tendon rupture History of colonoscopy (08/26/16) History of vasectomy (08/01/09) Injury of meniscus of left knee Rotator cuff tear arthropathy of both shoulders Social History Smoking Status: Never smoker alcohol intake: current alcohol intake frequency: a few times a month ROS ROS ED Constitutional Constitutional ED: Denies chills or fever(s) ENT ENT ED: Denies rhinorrhea or sore throat Cardiovascular Cardiovascular: Reports as per HPI Respiratory/Chest Respiratory/Chest: Denies cough or dyspnea Gastrointestinal Gastrointestinal: Denies nausea or vomiting Genitourinary Genitourinary ED: Denies hematuria Musculoskeletal Musculoskeletal: Denies myalgias Integumentary Denies rash Neurologic Neurologic: Denies headache(s) Endocrine Endocrinology: Denies polydipsia or polyuria Hematologic/Lymphatic Hematologic/Lymphatic: Denies easy bleeding or easy bruising Allergic/Immunologic Allergic/Immunologic ED: Denies urticaria EXAM Physical Exam Const Vital Signs: 10/22/22 22:25 10/22/22 22:46 10/23/22 00:20 Temperature 97.6 F L Temperature Source Temporal Pulse Rate 150 H 116 H Respiratory Rate 18 18 Blood Pressure 198/127 H 160/130 H Blood Pressure Mean 150 140 Blood Pressure Source Blood Pressure Position Blood Pressure Location Pulse Ox 96 96 97 Oxygen Delivery Method Room Air Room Air Room Air 10/23/22 00:48 Temperature Temperature Source Pulse Rate 118 H Respiratory Rate 23 H Blood Pressure 147/99 H Blood Pressure Mean 115 Blood Pressure Source Monitor Blood Pressure Position Semi-Fowlers Blood Pressure Location Right Arm Pulse Ox 96 Oxygen Delivery Method Room Air Positive well nourished General Appearance ED: NAD HEENT Reports moist mucous membranes Eyes EOMs intact bilaterally General Eye ED: Negative for scleral icterus Neck no lymphadenopathy and supple Chest Wall inspection of chest normal Resp normal respiratory effort and clear to auscultation bilaterally Cardio Negative for regular rate or regular rhythm Rate: tachycardic Rhythm: abnormal rhythm GI normal to inspection, nondistended, normoactive bowel sounds, soft to palpation and non-tender GI Narrative: Obesity but no tenderness. Back/Spine no CVA tenderness Extremity Extremity Narrative: No asymmetry or tenderness. No notable edema. General Extremety ED: Negative for edema, pulses abnormal or tenderness General Extremity: Negative for edema or pulses abnormal Neuro Sensorium / Orientation: awake and alert MDM MDM MDM Narrative Medical decision making narrative: Chest x-ray is not showing any significant acute process. CBC including white count hemoglobin and platelets are normal. Electrolytes look good other than mild elevation in the BUN over creatinine. He was given some IV fluids. Glucose is high but he admits he forgot to take his diabetic meds this evening and he ate pizza and sherbet. Troponins negative. TSH is normal. Coags are normal. Patient got good results with a dose of Cardizem IV but then his heart rate came back. We did place him on a drip. He initially did not want to stay. But we explained that this is rather important to treat and control. I have hospitalist on page. He has seen Dr. Katlyn Snow in the past but primarily for blood pressure management. His blood pressure was quite high when he came in but is now down. Currently, his heart rate is 105 when I went in the room. Lab Data Attestation: I reviewed the patient's lab results. Labs: Laboratory Results - last 24 hr 10/22/22 10/22/22 10/22/22 22:49 22:49 22:49 WBC 6.8 RBC 4.84 Hgb 15.3 Hct 43.3 MCV 89.5 MCH 31.6 MCHC 35.3 RDW Std Deviation 41.9 RDW Coeff of Francesco 12.8 Plt Count 307 MPV 8.8 Immature Gran % (Auto) 0.100 Neut % (Auto) 45.7 L Lymph % (Auto) 36.7 [place] % (Auto) 10.3 H Eos % (Auto) 6.3 H Baso % (Auto) 0.9 Absolute Neuts (auto) 3.1 Absolute Lymphs (auto) 2.50 Nucleated RBC % 0 PT 12.7 INR 1.0 APTT 25.3 Sodium 137 Potassium 3.8 Chloride 103 Carbon Dioxide 28.0 Anion Gap 6 BUN 23 H Creatinine 1.06 Estim Creat Clear Calc 83.86 Est GFR (MDRD) Af Amer 93 Est GFR (MDRD) Non-Af 77 BUN/Creatinine Ratio 21.7 H Glucose 317 H Calcium 9.4 Troponin I High Sens 22 TSH 2.12 Radiography Diagnostic Testing: Clinical Impression(s) from Imaging Studies Chest X-Ray 10/22/22 23:05 IMPRESSION: Interval development of minimal left basilar atelectasis, otherwise stable. No pneumonia or pulmonary edema. Electronically Signed: Norberto Hall MD at 23:39 EST , Chest x-ray read by radiology shows minimal left basilar atelectasis otherwise similar. No pneumonia or edema. EKG Initial EKG: Comments: EKG done for high heart rate read by me shows atrial fibrillation with rapid ventricular response of 137. I do not see any ventricular ectopy. There is some diffuse nonspecific ST and T wave changes likely related to rate. QRS duration is normal. QTc is toward the longer end at 471 ms. Discharge Plan Triage Chief Complaint: Palpitations ED Provider: Florin Miranda Dx/Rx/DC Orders Clinical Impression: Atrial fibrillation with rapid ventricular response, Dehydration, mild, Acute hyperglycemia Prescriptions: No Action losartan 50 mg tablet 50 mg PO DAILY hydrochlorothiazide 12.5 mg capsule 12.5 mg PO DAILY atorvastatin 40 mg tablet 40 mg PO DAILY metformin 1,000 mg tablet 1,000 mg PO BIDWMEAL pioglitazone 45 mg tablet 45 mg PO DAILY Primary Care Provider: Zach Perry Referrals: Zach Perry MD [Primary Care Provider] - Disposition Disposition: Acute Care [facility]
[2022-10-22 22:55] LABS: Absolute Neutrophil Count 3.1 X10^3/uL (2.0-7.7); Basophil# 0.06 X10^3/uL; Basophil% 0.9 % (0-1); Eosinophil# 0.43 X10^3/uL; Eosinophils% 6.3 % (0-5); Hematocrit 43.3 % (40-54); Hemoglobin 15.3 g/dL (13.0-16.5); Lymphocyte % 36.7 % (19-41); Mean Corp Hgb Conc 35.3 g/dL (32-36); Mean Corpuscular Hgb 31.6 pg (27.0-32.0); Mean Corpuscular Volume 89.5 fL (80-94); Mean Platelet Vol. 8.8 fl (6.2-12.0); Monocyte% 10.3 % (0-10); NRBC Flagged by Analyzer 0 % (0-5); Neutrophil # 3.12 X10^3/uL (2.7-7.7); Neutrophil % 45.7 % (47-70); Platelet Count 307 K/mm3 (150-450); RBC Distribution Width CV 12.8 % (11.6-14.6); RBC Distribution Width SD 41.9 fl (35.1-43.9); Red Blood Count 4.84 M/mm3 (4.6-6.2); White Blood Count 6.8 K/mm3 (4.4-11.0)
[2022-10-22] MEDS: 0.9% Normal Saline 1,000 ML 1000 ML IV (22:58)
[2022-10-22] MEDS: Aspirin 81 MG TAB.CHEW 324 MG PO (22:58)
[2022-10-22] MEDS: dilTIAZem 25 MG/5 ML Vial 10 MG IV BOLUS (22:58)
[2022-10-22 23:04] LABS: Partial Thromboplast Time 25.3 Seconds (24.1-36.2); Prothrombin Time (Protime)PT. 12.7 SECONDS (11.7-14.9)
--- NOTE | 2022-10-22 23:05 | RAD_ITS ---
EXAM: XR CHEST, 1 VIEW CLINICAL INDICATION: chest pain TECHNIQUE: 2 portable upright views of the chest. This report was created using Dtime report generation technology. COMPARISON: Previous chest radiograph of 11/22/2016. FINDINGS: LUNGS AND PLEURAL SPACES: Minimal discoid atelectasis at the left lung base laterally. The lungs are otherwise clear. No consolidation or edema. No pneumothorax. No effusion. HEART: Unremarkable. Cardiac silhouette not enlarged. Normal pulmonary vasculature. MEDIASTINUM: Minimally elongated thoracic aorta. BONES/JOINTS: No acute osseous abnormality. SOFT TISSUES: Unremarkable. RAD/Chest 1 View (Portable) IMPRESSION: Interval development of minimal left basilar atelectasis, otherwise stable. No pneumonia or pulmonary edema. Electronically Signed: Norberto Hall MD at 23:39 EST ,
[2022-10-22 23:59] LABS: Anion Gap 6 (5-15); BUN 23 mg/dL (7-18); BUN/Creat Ratio 21.7 RATIO (10-20); Calcium,Total 9.4 mg/dL (8.5-10.1); Chloride 103 mmol/L (98-107); Creatinine, Serum 1.06 mg/dL (0.70-1.30); EST Glomerular Filtration Rate 77 mL/min (>60); Est Glom Filt Rate - Afr Amer 93 mL/min (>60); Estimated Creatinine Clearance 83.86 ml/min; Glucose 317 mg/dL (74-106); Potassium 3.8 mmol/L (3.5-5.1); Sodium Level 137 mmol/L (136-145); Thyroid Stim Hormone (TSH) 2.12 uIU/mL (0.358-3.74); Troponin-I HS (w/2H Reflex) 22 pg/mL (3.0-78.0)
[2022-10-23] VITALS (22 sets, daily range): BP systolic 102–160; BP diastolic 64–130; PULSE 61–118; RESP 14–23; TEMP 36.6–37.2; O2SAT 93–99; BMI 33.1
[2022-10-23 00:51] LABS: Reflex Troponin-HS? (from REC) Y
[2022-10-23 01:21] LABS: Troponin-I HS 30 pg/mL (3.0-78.0)
--- NOTE | 2022-10-23 01:30 | ECHOD_ITS ---
Reason For Study: NEW ONSET AFIB Procedure This was a 2D Doppler, Color Flow transthoracic echocardiogram. Exam performed portable in patient room. Left Ventricle Normal left ventricle. The estimated ejection fraction is 55-60 %. Right Ventricle Normal right ventricle. Normal systolic function. Atria Normal left atrium. Normal right atrium. Mitral Valve The mitral valve is structurally normal. No prolapse or stenosis seen. Tricuspid Valve Normal tricuspid valve. No tricuspid valve insufficiency. Aortic Valve Normal aortic valve. Pulmonic Valve The pulmonic valve is not well visualized. Great Vessels Normal aortic root. Pericardium/Pleural No pericardial effusion. MMode/2D Measurements & Calculations LVIDd: 4.4 cm IVSd: 1.4 cm Ao root diam: 3.6 cm LVIDs: 2.8 cm LVPWd: 1.5 cm RVDd: 3.5 cm FS: 37.8 % LAV(MOD-bp): 70.7 ml LA A4 area: 22.5 cm2 LA dimension(2D): 4.1 cm LAV(MOD-bp) Indexed: 28.8 ml/m2 LAV(MOD-sp2): 70.5 ml LAV(MOD-sp4): 70.1 ml Doppler Measurements & Calculations MV E max janet: 74.1 cm/sec Ao V2 max: 99.4 cm/sec LV V1 max: 93.1 cm/sec Ao max P.0 mmHg LV V1 max P.5 mmHg PA V2 max: 88.9 cm/sec PI dec slope: 107.3 cm/sec2 ECHO/Echo Complete Interpretation Summary The estimated ejection fraction is 55-60 %. Normal LV systolic function No change from prior echo in12/07/2021 Ordering Physician: Maryann Castañeda Referring Physician: Vlad Perry Performed By: Arielle Bright, DION, RVT
--- NOTE | 2022-10-23 01:34 | PCM.HP.STD ---
HPI - General General Date of Admission: 10/23/22 Date of Service: 10/23/22 Chief Complaint: Racing heart HPI Narrative NORY ZAPIEN, is a 57 M with 3 of PEÑA, type 2 diabetes mellitus, hypertension, recent COVID diagnosis who presented to [facility] 10/23/2022 after he noticed his heart start racing at 9 PM. He presented to the ED and was found to be in A. fib with RVR and was started on a Cardizem drip. Hospitalist consulted for admission. Mr. Zapien evaluated at bedside and reported that the racing heart came on suddenly at 9 PM and that he has possibly had this intermittently over the past year though it was not persistent. Does at random have episodes of brief sharp chest pain which are not new and has not happened in the past few hours, has had some cough as he was recently diagnosed with COVID and returned to work after 5-day isolation on . Denies overt shortness of breath, denies other complaints at this time. [facility] Medical History Diabetes mellitus type II, controlled Essential hypertension Hyperlipidemia PEÑA (nonalcoholic steatohepatitis) Home Medications atorvastatin 40 mg tablet 40 mg PO DAILY 02/03/22 [History Last Taken Unknown] metformin 1,000 mg tablet 1,000 mg PO BIDWMEAL 02/03/22 [History Last Taken Unknown] pioglitazone 45 mg tablet 45 mg PO DAILY 02/03/22 [History Last Taken Unknown] hydrochlorothiazide 12.5 mg capsule 12.5 mg PO DAILY 02/17/22 [History Last Taken Unknown] losartan 50 mg tablet 50 mg PO DAILY 02/17/22 [History Last Taken Unknown] Allergy/AdvReac Type Severity Reaction Status Date / Time lisinopril AdvReac Intermediate Dry Cough Verified 10/22/22 22:27 Family History Mother COPD (chronic obstructive pulmonary disease) Father Cancer CAD (coronary artery disease) Brother Diabetes AA (alcohol abuse) Surgical History Biceps tendon rupture History of colonoscopy (08/26/16) History of vasectomy (08/01/09) Injury of meniscus of left knee Rotator cuff tear arthropathy of both shoulders Social History Smoking Status: Never smoker alcohol intake: current alcohol intake frequency: a few times a month ROS Constitutional Constitutional: Denies change in weight or chills Eyes Eyes: Denies change in vision ENT HEENT: Reports nasal congestion; Denies headache(s) or sore throat Cardiovascular Cardiovascular: Reports other Details: Racing heart, occasional sharp pains in his chest Respiratory/Chest Respiratory/Chest: Reports cough Gastrointestinal Gastrointestinal: Reports other Details: denies changes in bowel or bladder ; Denies abdominal pain Genitourinary Genitourinary: Reports other Details: denies changes in urination Musculoskeletal Musculoskeletal: Denies joint pain Neurologic Neurologic: Denies dizziness, focal weakness, headache(s), numbness or tingling Psychiatric Psychiatric: Denies anxiety Hematologic/Lymphatic Hematologic/Lymphatic: Denies easy bleeding Allergic/Immunologic Allergic/Immunologic: Reports other Details: denies rashes Vital Signs Vital Signs Vital Signs: 10/22/22 22:25 10/22/22 22:46 10/23/22 00:20 Temperature 97.6 F L Temperature Source Temporal Pulse Rate 150 H 116 H Respiratory Rate 18 18 Blood Pressure 198/127 H 160/130 H Blood Pressure Mean 150 140 Blood Pressure Source Blood Pressure Position Blood Pressure Location Pulse Ox 96 96 97 Oxygen Delivery Method Room Air Room Air Room Air 10/23/22 00:48 10/23/22 01:33 10/23/22 01:33 Temperature 98.4 F 98.4 F Temperature Source Oral Oral Pulse Rate 118 H 97 97 Respiratory Rate 23 H 15 15 Blood Pressure 147/99 H 157/79 H 157/79 H Blood Pressure Mean 115 105 105 Blood Pressure Source Monitor Blood Pressure Position Semi-Fowlers Blood Pressure Location Right Arm Pulse Ox 96 94 94 Oxygen Delivery Method Room Air Room Air Room Air Weight Weight: 106.594 kg Body Mass Index (BMI) 32.8 Physical Exam Const alert and no apparent distress Constitutional Narrative: Oriented HEENT normocephalic and head/scalp atraumatic Eyes Eyes Narrative: EOM grossly intact, anicteric Neck supple Resp normal respiratory effort and clear to auscultation bilaterally Cardio Cardio Narrative: Slightly tachycardic, irregular rhythm GI soft to palpation, non-tender and non-distended Extremity Extremity Narrative: No edema appreciated Neuro moves all extremities Neuro Narrative: No overt focal deficits appreciated Psych Psych Narrative: Cooperative Results Lab / Micro Data Result Diagrams: 10/22/22 22:49 10/22/22 22:49 Labs: Laboratory Results - last 24 hr 10/22/22 22:49: WBC 6.8, RBC 4.84, Hgb 15.3, Hct 43.3, MCV 89.5, MCH 31.6, MCHC 35.3, RDW Std Deviation 41.9, RDW Coeff of Francesco 12.8, Plt Count 307, MPV 8.8, Immature Gran % (Auto) 0.100, Neut % (Auto) 45.7 L, Lymph % (Auto) 36.7, [place] % (Auto) 10.3 H, Eos % (Auto) 6.3 H, Baso % (Auto) 0.9, Absolute Neuts (auto) 3.1, Absolute Lymphs (auto) 2.50, Nucleated RBC % 0 10/22/22 22:49: Sodium 137, Potassium 3.8, Chloride 103, Carbon Dioxide 28.0, Anion Gap 6, BUN 23 H, Creatinine 1.06, Estim Creat Clear Calc 83.86, Est GFR (MDRD) Af Amer 93, Est GFR (MDRD) Non-Af 77, BUN/Creatinine Ratio 21.7 H, Glucose 317 H, Calcium 9.4, Troponin I High Sens 22, TSH 2.12 10/22/22 22:49: PT 12.7, INR 1.0, APTT 25.3 10/23/22 00:57: Troponin I High Sens 30 Radiology Impression Chest X-Ray 10/22/22 23:05 IMPRESSION: Interval development of minimal left basilar atelectasis, otherwise stable. No pneumonia or pulmonary edema. Electronically Signed: Norberto Hall MD at 23:39 EST , Assessment & Plan Assessment/Plan (1) Atrial fibrillation with rapid ventricular response: PLAN: Plan #A. fib with RVR Admit to tele On Cardizem drip still variable heart rate though appears to be trending down overall, will continue the Cardizem drip, will initiate metoprolol 25 mg twice daily to begin transition to oral medications [id number] score is 2 for his hypertension and diabetes and therefore anticoagulation is indicated Will start Javon Will obtain echocardiogram Was positive for covid which could have contributed to current afib w/ RVR but he reported possibly having fleeting racing over the past 1 year No chest pain at this time and troponins negative Will check TSH Follows with Dr. Vale as an outpatient and was most recently seen 09/08/2022. He established due to an episode of chest pain and dizziness in [place] February 2022. He had gone to the ER but did not want to stay. He did have an echo which demonstrated preserved ejection fraction of 55% with mild concentric ventricular hypertrophy and no wall motion abnormalities. He underwent stress test but had hypertensive response and it was terminated early though prior to that no arrhythmias, chest pain, EKG changes had been noted. If wall motion abnormalities on echo may need inpatient cardiology consult for possible cath, if not may be able to follow-up outpatient #Type 2 diabetes mellitus Hold home oral hypoglycemics Sliding scale insulin and Accu-Cheks #Hypertension Continue home antihypertensives #Recent COVID 19 infection Was able to return to work on which he reports was after a 5 day. Will need in-hospital isolation for 10 days therefore needs isolation through 10/26 #DVT ppx: Javon Castañeda MD Charges/Coding Visit Charges Inpatient E&M: 65636 Init Hosp L2
[2022-10-23 06:23] LABS: Absolute Lymphocyte Count 2.71 X10^3/uL (0.83-4.51); Absolute Neutrophil Count 3.2 X10^3/uL (2.0-7.7); Basophil# 0.06 X10^3/uL; Basophil% 0.8 % (0-1); Eosinophil# 0.48 X10^3/uL; Eosinophils% 6.7 % (0-5); Hemoglobin 14.2 g/dL (13.0-16.5); Lymphocyte # 2.71 X10^3/ul (0.83-4.51); Lymphocyte % 37.7 % (19-41); Mean Corp Hgb Conc 33.8 g/dL (32-36); Mean Corpuscular Hgb 30.7 pg (27.0-32.0); Mean Corpuscular Volume 90.7 fL (80-94); Monocyte# 0.73 X10^3/uL; Monocyte% 10.2 % (0-10); NRBC Flagged by Analyzer 0 % (0-5); Neutrophil # 3.17 X10^3/uL (2.7-7.7); Neutrophil % 44.2 % (47-70); Platelet Count 315 K/mm3 (150-450); RBC Distribution Width CV 12.7 % (11.6-14.6); RBC Distribution Width SD 41.6 fl (35.1-43.9); Red Blood Count 4.63 M/mm3 (4.6-6.2); White Blood Count 7.2 K/mm3 (4.4-11.0)
[2022-10-23 06:53] LABS: AST(SGOT) 11 U/L (15-37); Alanine Aminotransfer ALT/SGPT 29 U/L (16-61); Albumin, Serum 3.4 g/dL (3.2-5.0); Alkaline Phosphatase 53 U/L (45-117); Anion Gap 2 (5-15); BUN 17 mg/dL (7-18); BUN/Creat Ratio 20.6 RATIO (10-20); Calcium,Total 8.8 mg/dL (8.5-10.1); Chloride 107 mmol/L (98-107); Creatinine, Serum 0.83 mg/dL (0.70-1.30); EST Glomerular Filtration Rate 103 mL/min (>60); Est Glom Filt Rate - Afr Amer 124 mL/min (>60); Globulin 3.3 g/dL (2.2-4.2); Glucose 162 mg/dL (74-106); Magnesium 1.9 mg/dL (1.6-2.6); Potassium 3.8 mmol/L (3.5-5.1); Protein, Total 6.7 g/dL (6.4-8.2); Sodium Level 140 mmol/L (136-145); Thyroid Stim Hormone (TSH) 1.67 uIU/mL (0.358-3.74)
[2022-10-23 07:20] LABS: Bedside Glucose 174 mg/dL (74-106)
[2022-10-23] MEDS: Metoprolol Tartrate 25 MG Tablet PO ×2 (08:50→20:39)
[2022-10-23] MEDS: APIXABAN 5 MG TABLET PO ×2 (08:51→20:39)
[2022-10-23] MEDS: Losartan Potassium 50 MG Tablet PO (08:51)
[2022-10-23] MEDS: hydroCHLOROthiazide 12.5mg 12.5 MG PO (08:51)
--- NOTE | 2022-10-23 10:36 | PN.HOSP_ITS ---
Subjective Subjective Patient seen and examined. He had no active complaints. He denied any tachycardia, chest pain, shortness of breath, nausea or any other symptoms. Review of systems is otherwise negative. SHe remains on heparin drip. Objective Data Objective Data Vital Signs: Vital Signs Temp Pulse Resp BP Pulse Ox O2 Del Method 98.9 F 64 14 124/69 H 97 Room Air 10/23/22 08:00 10/23/22 09:35 10/23/22 09:35 10/23/22 09:35 10/23/22 09:35 10/23/22 09:35 Oxygen Delivery Method Room Air Weight: 237 lb 14.06 oz Body Mass Index (BMI) 33.1 Intake & Output: Intake and Output for Last 24 Hours 10/21/22 10/22/22 10/23/22 23:59 23:59 23:59 Intake Total 1390.41 / 1390.41 Balance 1390.41 / 1390.41 Lab / Micro Data Result Diagrams: 10/23/22 05:17 10/23/22 05:17 Labs: Laboratory Results - last 24 hr 10/22/22 22:49: WBC 6.8, RBC 4.84, Hgb 15.3, Hct 43.3, MCV 89.5, MCH 31.6, MCHC 35.3, RDW Std Deviation 41.9, RDW Coeff of Francesco 12.8, Plt Count 307, MPV 8.8, Immature Gran % (Auto) 0.100, Neut % (Auto) 45.7 L, Lymph % (Auto) 36.7, [place] % (Auto) 10.3 H, Eos % (Auto) 6.3 H, Baso % (Auto) 0.9, Absolute Neuts (auto) 3.1, Absolute Lymphs (auto) 2.50, Nucleated RBC % 0 10/22/22 22:49: Sodium 137, Potassium 3.8, Chloride 103, Carbon Dioxide 28.0, Anion Gap 6, BUN 23 H, Creatinine 1.06, Estim Creat Clear Calc 83.86, Est GFR (MDRD) Af Amer 93, Est GFR (MDRD) Non-Af 77, BUN/Creatinine Ratio 21.7 H, Glucose 317 H, Calcium 9.4, Troponin I High Sens 22, TSH 2.12 10/22/22 22:49: PT 12.7, INR 1.0, APTT 25.3 10/23/22 00:57: Troponin I High Sens 30 10/23/22 05:17: WBC 7.2, RBC 4.63, Hgb 14.2, Hct 42.0, MCV 90.7, MCH 30.7, MCHC 33.8, RDW Std Deviation 41.6, RDW Coeff of Francesco 12.7, Plt Count 315, MPV 9.0, Immature Gran % (Auto) 0.400, Neut % (Auto) 44.2 L, Lymph % (Auto) 37.7, [place] % (Auto) 10.2 H, Eos % (Auto) 6.7 H, Baso % (Auto) 0.8, Absolute Neuts (auto) 3.2, Absolute Lymphs (auto) 2.71, Nucleated RBC % 0 10/23/22 05:17: Sodium 140, Potassium 3.8, Chloride 107, Carbon Dioxide 31.0, Anion Gap 2 L, BUN 17, Creatinine 0.83, Estim Creat Clear Calc 107.10, Est GFR (MDRD) Af Amer 124, Est GFR (MDRD) Non-Af 103, BUN/Creatinine Ratio 20.6 H, Glucose 162 H, Calcium 8.8, Magnesium 1.9, Total Bilirubin 0.50, AST 11 L, ALT 29, Alkaline Phosphatase 53, Total Protein 6.7, Albumin 3.4, Globulin 3.3, Albumin/Globulin Ratio 1.0, TSH 1.67 10/23/22 06:55: POC Glucose 174 H Radiography Diagnostic Testing: Radiology Impression Chest X-Ray 10/22/22 23:05 IMPRESSION: Interval development of minimal left basilar atelectasis, otherwise stable. No pneumonia or pulmonary edema. Electronically Signed: Norberto Hall MD at 23:39 EST , Physical Exam Const alert, oriented x3 and no apparent distress HEENT head/scalp atraumatic, moist oral mucous membranes and oropharynx normal Head and Scalp: normocephalic Mouth: oral and palatal mucosa normal Eyes PERRL, EOMs intact bilaterally and conjunctivae normal Neck no lymphadenopathy, supple and no JVD Resp normal respiratory effort, no retractions, no use of accessory muscles and clear to auscultation bilaterally Cardio Cardio Narrative: afib, now rate controlled. Still on cardizem drip GI normal to inspection, nondistended, normoactive bowel sounds, soft to palpation, non-tender and non-distended Extremity normal to inspection, full ROM and no clubbing, cyanosis or edema Neuro oriented x3, CN's II-XII intact bilaterally, moves all extremities and no focal motor deficits Sensorium / Orientation: awake and alert Motor Exam: strength 5/5 throughout Psych affect normal Assessment & Plan Assessment/Plan (1) Atrial fibrillation with rapid ventricular response: (2) COVID: PLAN: Plan #Afib with RVR * new onset * was admitted with a complaint of racing heart * on cardizem drip * started on eliquis * 2D echo ordered and pending * TSH WNL * to wean off cardizem drip as tolerated; patient started on PO metoprolol * #COVID 19 infection * asymptomatic. On room air * to remain in isolation till October 26 to complete a 10 day isolation period * #TYpe 2 diabetes mellitus: on pioglitazone and metformin. ISS. Accuchecks ACHS #Hypertension: on losartan and HCTZ #PEÑA:on atorvasatin. Stable. #Hyperlipidemia: on statin DVT prophylaxis: started on eliquis for afib. Charges/Coding Visit Charges Inpatient E&M: 00188 Subs Hosp L2
--- NOTE | 2022-10-23 10:36 | CASEMGMT ---
TERESA FARFAN Discharge Planning Assessment: Face to Face with patient for initial transition planning/care coordination assessment. TERESA FARFAN introduced self and role at [facility], voices understanding. Care providers, pharmacy, and demographics verified. PCP: Dr. Perry Specialists: Dr. Mccoy (endocrinology) Preferred Pharmacy: [facility] Insurance: [facility] Prescription Benefit: Yes Living Will/HPOA: No Living Arrangements: Pt lives with significant other, is independent with ADLs and currently works FT at [facility]. Transportation: Pt drives and has a vehicle DME/HHC/SNF: none Plan: Pt plans to return home with sig other. Denies any discharge needs. Noted pt on Eliquis. Discount co-pay card provided for Eliquis. Will continue to follow and assist with DC planning needs as identified. Siva Allen RN CM
[2022-10-23 11:50] LABS: Bedside Glucose 198 mg/dL (74-106)
--- NOTE | 2022-10-23 13:41 | EKG12_ITS ---
Test Reason : BLOCK Blood Pressure : / mmHG Vent. Rate : 074 BPM Atrial Rate : 074 BPM P-R Int : 154 ms QRS Dur : 094 ms QT Int : 410 ms P-R-T Axes : -42 009 020 degrees QTc Int : 455 ms Unusual P axis, possible ectopic atrial rhythm Nonspecific T wave abnormality Abnormal ECG When compared with ECG of 22-OCT-2022 22:32, MANUAL COMPARISON REQUIRED, DATA IS UNCONFIRMED Confirmed by NELLY GONZALEZ, SABRINA ([id number]), rewrite editor ITZ OROZCO ([id number]) on 10/26/2022 8:37:20 AM Referred By: Angelica Johnson Confirmed By:SABRINA VILLEGAS MD
[2022-10-23] MEDS: Insulin Lispro 100 UNIT/ML INSULN.PEN SC ×2 (16:50→20:39)
[2022-10-23 17:46] LABS: Bedside Glucose 284 mg/dL (74-106)
[2022-10-23] MEDS: Atorvastatin Calcium 40 MG Tablet PO (20:39)
[2022-10-23 22:01] LABS: Bedside Glucose 232 mg/dL (74-106)
[2022-10-24] VITALS (7 sets, daily range): BP systolic 114–128; BP diastolic 77–87; PULSE 53–59; RESP 16–18; TEMP 36.2–36.6; O2SAT 94–99
[2022-10-24 06:14] LABS: Absolute Neutrophil Count 3.4 X10^3/uL (2.0-7.7); Basophil# 0.04 X10^3/uL; Basophil% 0.6 % (0-1); Eosinophil# 0.48 X10^3/uL; Hemoglobin 14.3 g/dL (13.0-16.5); Lymphocyte % 33.7 % (19-41); Mean Corpuscular Hgb 30.7 pg (27.0-32.0); Mean Corpuscular Volume 90.1 fL (80-94); Mean Platelet Vol. 8.9 fl (6.2-12.0); Monocyte# 0.56 X10^3/uL; Monocyte% 8.2 % (0-10); NRBC Flagged by Analyzer 0 % (0-5); Neutrophil # 3.43 X10^3/uL (2.7-7.7); Neutrophil % 50.2 % (47-70); Platelet Count 324 K/mm3 (150-450); RBC Distribution Width CV 12.9 % (11.6-14.6); RBC Distribution Width SD 42.5 fl (35.1-43.9); Red Blood Count 4.66 M/mm3 (4.6-6.2); White Blood Count 6.8 K/mm3 (4.4-11.0)
[2022-10-24 06:47] LABS: Anion Gap 6 (5-15); BUN 22 mg/dL (7-18); BUN/Creat Ratio 23.8 RATIO (10-20); Chloride 105 mmol/L (98-107); Creatinine, Serum 0.92 mg/dL (0.70-1.30); EST Glomerular Filtration Rate 90 mL/min (>60); Est Glom Filt Rate - Afr Amer 109 mL/min (>60); Estimated Creatinine Clearance 96.63 ml/min; Glucose 157 mg/dL (74-106); Magnesium 2.2 mg/dL (1.6-2.6); Potassium 3.9 mmol/L (3.5-5.1); Sodium Level 139 mmol/L (136-145)
[2022-10-24] MEDS: hydroCHLOROthiazide 12.5mg 12.5 MG PO (09:22)
[2022-10-24] MEDS: Metoprolol Tartrate 25 MG Tablet PO (09:22)
[2022-10-24] MEDS: Losartan Potassium 50 MG Tablet PO (09:22)
[2022-10-24] MEDS: APIXABAN 5 MG TABLET PO (09:22)
--- NOTE | 2022-10-24 11:31 | DS.PCM_ITS ---
Providers Date of Admission: 10/23/22 Date of Discharge: 10/24/22 Primary Care Physician: Dr. Zach Perry MD Reason For Visit: ATRIAL 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 RAPID RATE Diagnosis Discharge Diagnosis (1) Atrial fibrillation with rapid ventricular response: Status: Acute Code(s): I48.91 - Unspecified atrial fibrillation (2) COVID: Status: Acute Code(s): U07.1 - COVID-19 Plan #Afib with RVR * new onset * was admitted with a complaint of racing heart * on cardizem drip * started on eliquis * 2D echo ordered and pending * TSH WNL * to wean off cardizem drip as tolerated; patient started on PO metoprolol * #COVID 19 infection * asymptomatic. On room air * to remain in isolation till October 26 to complete a 10 day isolation period * #TYpe 2 diabetes mellitus: on pioglitazone and metformin. ISS. Accuchecks ACHS #Hypertension: on losartan and HCTZ #PEÑA:on atorvasatin. Stable. #Hyperlipidemia: on statin DVT prophylaxis: started on eliquis for afib. Medications at Discharge Home Medications atorvastatin 40 mg tablet 40 mg PO DAILY 02/03/22 metformin 1,000 mg tablet 1,000 mg PO BIDWMEAL 02/03/22 pioglitazone 45 mg tablet 45 mg PO DAILY 02/03/22 hydrochlorothiazide 12.5 mg capsule 12.5 mg PO DAILY 02/17/22 losartan 50 mg tablet 50 mg PO DAILY 02/17/22 apixaban 5 mg tablet (Eliquis) 5 mg PO BID #60 tabs 10/24/22 metoprolol tartrate 25 mg tablet 12.5 mg PO BID #30 tabs 10/24/22 Hospital Course Operations None Procedures 2-D Echocardiogram Summary of Care Provided Minutes Spent on Discharge: 47 Hospital Course: Patient is a 57 y/o male with a PMH as outlined who was admitted with a complaint of palpitations, which started on the night of admission. He denied any chest pain or shortness of breath and had recently been diagnosed with COVID-19 infection. He was asymptomatic from the standpoint. He was found to be in A. fib with RVR. He was placed on Cardizem drip and placed on Eliquis. He converted to normal sinus rhythm and was placed on p.o. metoprolol. Hospital course was complicated by mild bradycardia while she was on metoprolol so metoprolol dose was halved from 25 mg twice daily to 12.5 mg twice daily at discharge. 2D echo showed EF of 55 to 60% with normal left ventricular systolic function and no regional motion abnormalities. Patient remained stable and was discharged home on 10/24/2022. He was discharged on p.o. metoprolol 12.5 mg twice daily and p.o. Eliquis 5 mg twice daily. He is to follow-up with his primary care doctor and was referred to cardiology on outpatient basis. He was counseled to keep a log of his heart rate and blood pressure and presented to his PCP and cardiology when he establishes care for adjustment of his medicat ions as needed. Of note his TSH was within normal limits. CHADVASC 2 score was 2,for hypertension and type 2 diabetes mellitus Patient seen and examined prior to discharge. He had no active complaints and had an uneventful night. Review of systems otherwise negative. Labs and vitals reviewed. Home medication reviewed and reconciled. Physical Exam Const alert, oriented x3 and no apparent distress General Appearance: cooperative, comfortable and well kempt Orientation / Consciousness: awake Exam Limitations: no limitations HEENT normocephalic, head/scalp atraumatic, hearing grossly normal bilaterally, moist oral mucous membranes and oropharynx normal Mouth: oral and palatal mucosa normal Eyes PERRL, EOMs intact bilaterally and conjunctivae normal Eyes Narrative: EOM grossly intact, anicteric Neck no lymphadenopathy, supple and no JVD Resp normal respiratory effort, no retractions, no use of accessory muscles and clear to auscultation bilaterally Cardio regular rate, regular rhythm, S1 normal heart sound, S2 normal heart sound and no murmurs GI normal to inspection, nondistended, normoactive bowel sounds, soft to palpation, non-tender and non-distended Extremity normal to inspection, full ROM and no clubbing, cyanosis or edema Skin no rashes or lesions noted Neuro oriented x3, CN's II-XII intact bilaterally, moves all extremities and no focal motor deficits Sensorium / Orientation: awake and alert Motor Exam: strength 5/5 throughout Psych affect normal Psych Narrative: Cooperative Weight / BMI Weight Weight: 237 lb 14.06 oz Body Mass Index (BMI) 33.1 ABG / Lab / Microbiology Data Result Diagrams: 10/24/22 05:48 10/24/22 05:48 Laboratory: Laboratory Results - last 24 hr 10/23/22 11:29: POC Glucose 198 H 10/23/22 16:45: POC Glucose 284 H 10/23/22 20:36: POC Glucose 232 H 10/24/22 05:48: WBC 6.8, RBC 4.66, Hgb 14.3, Hct 42.0, MCV 90.1, MCH 30.7, MCHC 34.0, RDW Std Deviation 42.5, RDW Coeff of Francesco 12.9, Plt Count 324, MPV 8.9, Immature Gran % (Auto) 0.300, Neut % (Auto) 50.2, Lymph % (Auto) 33.7, [place] % (Auto) 8.2, Eos % (Auto) 7.0 H, Baso % (Auto) 0.6, Absolute Neuts (auto) 3.4, Absolute Lymphs (auto) 2.30, Nucleated RBC % 0 10/24/22 05:48: Sodium 139, Potassium 3.9, Chloride 105, Carbon Dioxide 28.0, Anion Gap 6, BUN 22 H, Creatinine 0.92, Estim Creat Clear Calc 96.63, Est GFR (MDRD) Af Amer 109, Est GFR (MDRD) Non-Af 90, BUN/Creatinine Ratio 23.8 H, Glucose 157 H, Calcium 9.0, Magnesium 2.2 Radiography Diagnostic Testing: Radiology Impression Echocardiogram 10/23/22 01:30 Interpretation Summary The estimated ejection fraction is 55-60 %. Normal LV systolic function No change from prior echo in12/07/2021 Ordering Physician: Maryann Castañeda Referring Physician: Vlad Perry Performed By: Arielle Bright, DION, RVT D/C Instructions Discharge Diet: Low fat / Low cholesterol Discharge Activity: Return to Normal Activity Weight Bearing Status: Weight bearing as tolerated Call your doctor if you observe: Fever of 101 or Higher, Shortness of breath, Dizziness, Swelling in the ankles, Chest pain and Increased palpitations (irregular heartbeat) Meaningful Use Info Meaningful Use Diagnoses (Choose all that apply): None applicable Discharge Plan Admission Admit Date/Time: 10/23/22 01:20 Primary Reason for Your Visit: afib Attending Provider: Angelica Johnson Primary Care Provider: Zach Perry Consulting Providers: Maryann Castañeda Instructions Patient Instructions: AFBritton ness Dc Additional Instructions / Restrictions: keep a log of heart rate and BP and present to PCP and property management coordinator for adjustment of metoprolol as needed. Discharge Orders/Prescriptions Prescriptions: New Eliquis 5 mg Tablet 5 mg PO BID Qty: 60 1RF metoprolol tartrate 25 mg tablet 12.5 mg PO BID Qty: 30 1RF Continued losartan 50 mg tablet 50 mg PO DAILY hydrochlorothiazide 12.5 mg capsule 12.5 mg PO DAILY atorvastatin 40 mg tablet 40 mg PO DAILY metformin 1,000 mg tablet 1,000 mg PO BIDWMEAL pioglitazone 45 mg tablet 45 mg PO DAILY Referrals / Follow Up: Zach Perry MD [Primary Care Provider] - Within 2 Weeks Jonathan Vale MD [Med Staff - Active Staff] - Within 2 Weeks Disposition Disposition (needs filled in before D/C Order can be placed): Home, Self Care Charges/Coding Visit Charges Inpatient E&M: 19321 Disch Hosp
== END 2022-10-24 12:43 | disposition home or self-care (01) | DRG 308 ==
LOC: ED 10-23 00:57 → PCU 10-23 01:20
PROVIDERS: Admitting Provider Internal Medicine; Emergency Provider Emergency Medicine; PCP Family Medicine; Referring Provider Student in an Organized Health Care Education/Training Program; Visit Provider Student in an Organized Health Care Education/Training Program
DX: I48.91 Unspecified atrial fibrillation (principal); U07.1 COVID-19; K75.81 Nonalcoholic steatohepatitis (NASH); E11.9 Type 2 diabetes mellitus without complications; E78.5 Hyperlipidemia, unspecified; I10 Essential (primary) hypertension; E86.0 Dehydration; Z86.16 Personal history of COVID-19
CPT/HCPCS: 36415; 71045; 80048; 80053; 82962; 83735; 84443; 84484; 85025; 85610; 85730; 93005; 93306; 99251; 99285; J7030; A4216; G0463

== ENCOUNTER → 2023-04-13 | Outpatient (CLI) | payer OTHER, SELFPAY ==
[2023-04-13 09:25] LABS: Hemoglobin A1c 6.8 % (3.8-5.6)
== END | disposition home or self-care (01) ==
LOC: LAB 07:54
PROVIDERS: PCP Family Medicine; Referring Provider Internal Medicine Endocrinology, Diabetes & Metabolism; Visit Provider Internal Medicine Endocrinology, Diabetes & Metabolism
DX: E11.65 Type 2 diabetes mellitus with hyperglycemia (principal)
CPT/HCPCS: 36415; 83036

== ENCOUNTER → 2023-06-10 | Outpatient (CLI) | payer OTHER, SELFPAY ==
--- NOTE | 2023-06-10 12:50 | RAD_ITS ---
INDICATION: Intractable hiccups EXAMINATION/TECHNIQUE: X-RAY - XR Chest 2 Views COMPARISON: October 22, 2022. FINDINGS: LINES/DEVICES: None. LUNGS: No consolidation, edema or effusion. No radiographically apparent pulmonary mass. No pneumothorax. MEDIASTINUM AND CARDIOVASCULAR STRUCTURES: Cardiac silhouette not enlarged. Mild aortic atherosclerosis. BONES AND SOFT TISSUES: No acute osseous finding. Bilateral humeral head tendon anchors noted. RAD/Chest PA and Lateral IMPRESSION: No radiographic evidence of acute cardiopulmonary disease. Electronically Signed: Michael Christie MD at 8:52 EDT ,
== END | disposition home or self-care (01) ==
LOC: RAD 12:49
PROVIDERS: PCP Family Medicine; Referring Provider Physician Assistant Medical; Visit Provider Physician Assistant Medical
DX: R06.02 Shortness of breath (principal); R06.6 Hiccough
CPT/HCPCS: 71046

== ENCOUNTER → 2023-12-15 | Outpatient (CLI) | payer OTHER, SELFPAY ==
--- OUTSIDE RECORDS SUMMARY | 2023-12-15 09:38 | XMS RPT_ITS | CCD ---
Author Name Unknown Address [address] [place] [address] Organization [facility] Care Team Providers Care Lead Tank Mechanic Name Role Phone Ajay Acevedo Unavailable Joselyn Finnegan LPN Unavailable Unavailab Joselyn Crawford LPN Unavailable Unavailab le Ajay Acevedo Unavailable Jeff Perry MD Primary Care Provider Jeff Perry MD Primary Care Provider Jeff Perry MD Primary Care Provider Jeff Perry MD Primary Care Provider JEFF PERRY Attending Unavailab JEFF Vences Primary Care Unavailab danny Medications Completed/Discontinued Medications Medication Drug Class(es) Dates Sig (Normalized) Sig (Original) aspirin 81 mg chewable tablet (13 sources) Platelet Aggregation Inhibitor, Nonsteroidal Anti-inflammatory Drug Start: 12-02-2021 End: 08-15-2023 take 1 tablet by mouth once daily aspirin 81 mg chewable tablet Take 1 tablet by mouth once daily. 0 08/15/2023 Active Problems Active Problems Problem Classification Problem Date Documented Da te Episodic/Chronic Cardiac dysrhythmias (2 sources) Atrial fibrillation; Translations: [Unspecified atrial fibrillation] Onset: 08-15-2023 08-15-2023 Chronic Diabetes mellitus without complication (19 sources) Type 2 diabetes mellitus without complication; Translations: [Type 2 diabetes mellitus without complications] Onset: 07-29-2015 Chronic Disorders of lipid metabolism (16 sources) Hyperlipidemia; Translations: [Hyperlipidemia, unspecified] Onset: 09-04-2015 09-04-2015 Chronic Essential hypertension (19 sources) Essential hypertension; Translations: [Essential (primary) hypertension] Onset: 07-11-2018 07-11-2018 Chronic Joint disorders and dislocations; trauma-related (4 sources) Derangement of knee; Translations: [Unspecified internal derangement of left knee] Onset: 04-18-2017 04-18-2017 Chronic Other liver diseases (9 sources) Non-alcoholic fatty liver; Translations: [Fatty (change of) liver, not elsewhere classified] Onset: 07-14-2016 07-14-2016 Chronic Other liver diseases (6 sources) Fatty (change of) liver, not elsewhere classified; Translations: [Other chronic nonalcoholic liver disease] Onset: 07-14-2016 07-14-2016 Chronic Other non-traumatic joint disorders (1 source) Pain in right knee; Translations: [Pain in joint, lower leg] Episodic Other nutritional; endocrine; and metabolic disorders (12 sources) Obesity; Translations: [Other obesity due to excess calories] 07-22-2021 Chronic Other nutritional; endocrine; and metabolic disorders (2 sources) Obesity caused by energy imbalance; Translations: [Other obesity due to excess calories] 08-15-2023 Chronic Other nutritional; endocrine; and metabolic disorders (1 source) Other obesity due to excess calories; Translations: [Class 1 obesity due to excess calories with serious comorbidity and body mass index (BMI) of 34.0 to 34.9 in adult] Onset: 07-22-2021 Chronic Other nutritional; endocrine; and metabolic disorders (1 source) Body mass index (BMI) 34.0-34.9, adult; Translations: [Class 1 obesity due to excess calories with serious comorbidity and body mass index (BMI) of 34.0 to 34.9 in adult] Onset: 07-22-2021 Chronic Other screening for suspected conditions (not mental disorders or infectious disease) (1 source) Patient encounter status; Translations: [Encounter for screening for malignant neoplasm of prostate] Episodic Residual codes; unclassified (1 source) Family history of malignant neoplasm of skin; Translations: [Family history of malignant neoplasm of other organs or systems] Episodic Past or Other Problems Problem Classification Problem Date Documented Da te Episodic/Chronic Joint disorders and dislocations; trauma-related (15 sources) Other tear of medial meniscus, current injury, left knee, initial encounter; Translations: [Tear of medial meniscus of knee] Onset: 05-06-2017 05-13-2017 Episodic Other connective tissue disease (13 sources) Prepatellar bursitis of left knee; Translations: [Prepatellar bursitis, left knee] Onset: 02-20-2018 02-20-2018 Episodic Other connective tissue disease (13 sources) Rotator cuff arthropathy of right shoulder; Translations: [Unspecified rotator cuff tear or rupture of right shoulder, not specified as traumatic] Onset: 08-01-2019 08-01-2019 Episodic Other non-traumatic joint disorders (2 sources) Knee pain; Translations: [Pain in left knee] Onset: 05-06-2017 05-06-2017 Episodic Sprains and strains (13 sources) Injury of knee; Translations: [Sprain of other specified parts of left knee, initial encounter] Onset: 02-20-2018 02-20-2018 Episodic Superficial injury; contusion (4 sources) Abrasion AND/OR friction burn of hand, infected; Translations: [Abrasion of unspecified hand] Onset: 01-26-2010 01-26-2010 Episodic Unclassified (4 sources) Pain; Translations: [Pain, unspecified] Onset: 04-18-2017 04-18-2017 Episodic Unclassified (3 sources) Removal of suture ; Translations: [Encounter for removal of sutures] Onset: 01-26-2010 Resolved: 01-26-2010 01-26-2010 Results Test Name Value Interpretation Reference Range Facil ity Vital Signs Date Time Vital Sign Value Performing Clinician Matt ann 08-15-2023 14:40-0400 Body weight 112.31 kg Jeff Perry MD Work Phone: [facility] 08-15-2023 14:40-0400 Diastolic blood pressure 72 mm[Hg] Jeff Perry MD Work Phone: [facility] 08-15-2023 14:40-0400 Heart rate 93 /min Jeff Perry MD Work Phone: [facility] 08-15-2023 14:40-0400 Respiratory rate 16 /min Jeff Perry MD Work Phone: [facility] 08-15-2023 14:40-0400 SaO2% (BldA) [Mass fraction] 94 % Jeff Perry MD Work Phone: [facility] 08-15-2023 14:40-0400 Systolic blood pressure 120 mm[Hg] Jeff Perry MD Work Phone: [facility] 08-11-2022 15:42-0400 Body weight 107.59 kg Charu Podlogar [employer] C[employer]US TAKER.ENGINEER/CONDUCTOR Work Phone: [facility] 08-11-2022 15:42-0400 Diastolic blood pressure 80 mm[Hg] Charu Podlogar COMMERCIAL CENSUS TAKER.ENGINEER/CONDUCTOR Work Phone: [facility] 08-11-2022 15:42-0400 Heart rate 97 /min Charu Podlogar COMMERCIAL CENSUS TAKER.ENGINEER/CONDUCTOR Work Phone: [facility] 08-11-2022 15:42-0400 Respiratory rate 16 /min Charu Podlogar COMMERCIAL CENSUS TAKER.ENGINEER/CONDUCTOR Work Phone: [facility] 08-11-2022 15:42-0400 SaO2% (BldA) [Mass fraction] 96 % Charu Podlogar COMMERCIAL CENSUS TAKER.ENGINEER/CONDUCTOR Work Phone: [facility] 08-11-2022 15:42-0400 Systolic blood pressure 134 mm[Hg] Charu Podlogar COMMERCIAL CENSUS TAKER.ENGINEER/CONDUCTOR Work Phone: [facility] 05-06-2017 13:22-0400 BMI (Body Mass Index) 32.77 kg/m2 [facility] Work Phone: 05-06-2017 13:22-0400 Weight 106[address] [facility] Work Phone: 04-18-2017 13:47-0400 BMI (Body Mass Index) 33.8 kg/m2 Joselyn Finnegan LPN [facility] Work Phone: 04-18-2017 13:47-0400 Body Temperature 98.3 [degF] Joselyn Finnegan LPN [facility] Work Phone: 04-18-2017 13:47-0400 BP Diastolic 88 mm[Hg] Joselyn Finnegan LPN [facility] Work Phone: 04-18-2017 13:47-0400 BP Systolic 130 mm[Hg] Joselyn Finnegan LPN [facility] Work Phone: 04-18-2017 13:47-0400 Height 180.34 cm Joselyn Finnegan LPN [facility] Work Phone: 04-18-2017 13:47-0400 Pulse (Heart Rate) 82 /min Joseyln Finnegan LPN [facility] Work Phone: 04-18-2017 13:47-0400 Pulse Oximetry 98 % Joselyn Finnegan LPN [facility] Work Phone: 04-18-2017 13:47-0400 Respiratory Rate 12 /min Joselyn Finnegan LPN [facility] Work Phone: 04-18-2017 13:47-0400 Weight 109.95 kg Joselyn Finnegan LPN [facility] Work Phone: Encounters Encounter Date Encounter Type Care Provider Facility Start: 08-15-2023 End: 08-16-2023 ambulatory JEFF PERRY Facility:[facility] Start: 08-15-2023 Patient encounter procedure JEFF PERRY [facility] Start: 08-15-2023 End: 08-15-2023 Patient encounter procedure Jeff Perry MD Work Phone: [facility] Procedures Date Procedure Procedure Detail Performing Clinician Start: 07-22-2021 Adult depression screening assessment Jeff Perry MD Work Phone: Start: 08-26-2016 Colonoscopy Zach Perry MD Work Phone: Start: 01-26-2010 End: 01-26-2010 Removal of suture ENCOUNTER FOR REMOVAL OF SUTURES Ajay Acevedo Plan of Treatment Date Care Activity Detail Author Start: 07-22-2031 Urine microalbumin profile [facility] Start: 08-26-2026 Colonoscopy COLONOSCOPY [facility] Start: 08-26-2026 COLORECTAL CANCER SCREENING COLORECTAL CANCER SCREENING [facility] Start: 12-24-2025 PROSTATE CANCER SCRE ENING DISCUSSION PROSTATE CANCER SCREENING DISCUSSION [facility] Start: 08-15-2024 3 comp foot exam completed Diabetic Foot Exam [facility] Start: 08-15-2024 Annual PCP Team Director Of Sales Marketing billy Disease Visit Annual PCP Team Chronic Disease Visit [facility] Start: 08-15-2024 BP Controlled (<130/80) BP Controlle d (<130/80) [facility] Start: 08-15-2024 Covid-19 Vaccine ( season) Covid-19 Vaccine () [facility] Immunizations Immunization Date Immunization Notes Care Provider Fa alta 10-05-2022 influenza, seasonal, injectable Jeff Perry MD Work Phone: [facility] Work Phone: 10-05-2022 influenza virus vaccine, unspecified formulation Jeff Perry MD Work Phone: [facility] 09-17-2021 influenza, seasonal, injectable, preservative free Jeff Perry MD Work Phone: [facility] Work Phone: 07-22-2021 tetanus toxoid, reduced diphtheria toxoid, and acellular pertussis vaccine, adsorbed Jeff Perry MD Work Phone: [facility] 12-08-2020 COVID-19 vaccine, fu ll dose (MODERNA) Jeff Perry MD Work Phone: [facility] 11-10-2020 COVID-19 vaccine, fu ll dose (MODERNA) Jeff Perry MD Work Phone: [facility] 09-29-2020 influenza, seasonal, injectable Jeff Perry MD Work Phone: [facility] Work Phone: 09-29-2020 influenza, seasonal, injectable, preservative free Jeff Perry MD Work Phone: [facility] Work Phone: 10-01-2019 influenza, seasonal, injectable Jeff Perry MD Work Phone: [facility] Work Phone: 10-01-2019 influenza, seasonal, injectable, preservative free Jeff Perry MD Work Phone: [facility] Work Phone: 08-21-2018 influenza, seasonal, injectable Jeff Perry MD Work Phone: [facility] Work Phone: 08-21-2018 influenza, seasonal, injectable, preservative free Jeff Perry MD Work Phone: [facility] Work Phone: 10-05-2017 influenza, seasonal, injectable Jeff Perry MD Work Phone: [facility] Work Phone: 10-05-2017 influenza, seasonal, injectable, preservative free Jeff Perry MD Work Phone: [facility] Work Phone: 08-06-2016 influenza, seasonal, injectable Jeff Perry MD Work Phone: [facility] 08-06-2016 influenza, seasonal, injectable, preservative free Jeff Perry MD Work Phone: [facility] Work Phone: 08-06-2015 hunter, seasonal, injectable Jeff Perry MD Work Phone: [facility] Work Phone: 08-06-2015 influenza, seasonal, injectable, preservative free Jeff Perry MD Work Phone: [facility] Work Phone: 08-01-2014 influenza, seasonal, injectable Jeff Perry MD Work Phone: [facility] Work Phone: 08-01-2014 influenza, seasonal, injectable, preservative free Jeff Perry MD Work Phone: [facility] Work Phone: 11-15-2013 influenza, seasonal, injectable Jeff Perry MD Work Phone: [facility] 11-15-2013 influenza, seasonal, injectable, preservative free Jeff Perry MD Work Phone: [facility] Work Phone: 02-13-1985 mumps virus vaccine Artie Perry MD Work Phone: [facility] Work Phone: 02-13-1985 rubella virus vaccine Reji Perry MD Work Phone: [facility] Work Phone: 05-09-1983 diphtheria and tetan us toxoids, adsorbed for pediatric use Jeff Perry MD Work Phone: [facility] Work Phone: 05-09-1983 DTP-Haemophilus influenzae type b conjugate vaccine Jeff Perry MD Work Phone: [facility] Work Phone: 10-23-1980 rubella virus vaccine Reji ePrry MD Work Phone: [facility] Work Phone: 1965 DTP-Haemophilus influenzae type b conjugate vaccine Jeff Perry MD Work Phone: [facility] Work Phone: 1965 trivalent poliovirus vaccine, live, oral Jeff Perry MD Work Phone: [facility] Work Phone: 1965 DTP-Haemophilus influenzae type b conjugate vaccine Jeff Perry MD Work Phone: [facility] Work Phone: 1965 trivalent poliovirus vaccine, live, oral Jeff Perry MD Work Phone: [facility] Work Phone: 1965 DTP-Haemophilus influenzae type b conjugate vaccine Jeff Perry MD Work Phone: [facility] Work Phone: 1965 trivalent poliovirus vaccine, live, oral Jeff Perry MD Work Phone: [facility] Work Phone: Payers Date Payer Category Payer Private Health Insurance [employer] [facility] [id number] 2022-Present [phone] [address] [place] [address] PPO [id number] 2022 Private Health Insurance [id number] 2020 Unknown MMO MMO [employer] [id number] 2020-Present [address] [place] [address] PPO [id number] 2020 Unknown MMO MMO [employer] [id number] 2020-Present [address] [place] [address] PPO [id number] Social History Date Type Detail Facility Start: 07-21-2017 End: 08-11-2022 Tobacco smoking status NHIS Never smoked tobacco [facility] Work Phone: Start: 12-21-2021 End: 08-15-2023 Alcohol intake Current drinker of alcohol (finding) [facility] Start: 12-21-2021 End: 08-15-2023 Alcohol intake [facility] Work Phone: Start: 1965 Sex Assigned At Not on file C [facility] Start: 11-21-2021 End: 07-27-2022 Exposure to SARS-CoV-2 (event) Not sure [facility] Start: 07-21-2017 End: 08-11-2022 Tobacco use and exposure Smokeless tobacco non-user [facility] Start: 08-15-2023 Tobacco use panel [facility] Work Phone: Adult Depression Screening Assessment 0 [facility] Work Phone: Medical Equipment Procedure Code Equipment Code Equipment Origin al Text Equipment Identifier Dates Test blood sugar (s) 1 times daily. Dx: 250.00. Insulin: No Start: 08-05-2015 Clinical Notes 05-04-2017 to 08-15-2023 Jeff Perry MD - 08/15/2023 2:58 PM EDTTelephone Encounter - Prisca Parada LPN - 02/14/2023 11:16 AM EDTTelephone Encounter - Jeff Perry MD - 02/13/2023 5:12 PM EDT Note Date & Type Note Facility 08-15-2023 Note HNO ID: [id number] Author: Jeff Perry MD Service: ? Author Type: Physician Type: Progress Notes Filed: 08/15/2023 9:14 PM Note Text: Chief Complaint Patient presents with: Physical: Labs completed last week HPI Al Gonzalez is a 58 year old male who presents here today for Above Complaints.. DIABETES MELLITUS: Mr. Gonzalez was last seen 4 months ago by endocrinology Dr. Kike Mccoy. A1c 6.8 in April. Since our last visit he denies excessive thirst or increased frequency of urination, numbness, tingling or pain in extremities, new or unusual visual symptoms, and low sugar/hypoglycemic reactions. Follows a diabetic diet generally not very much. He is compliant with medication(s) and is tolerating med(s) without any side effects. He reports checking his glucose on a 1-2 times weekly schedule with sugars in the 90-120's range on random checks. Patient's last HgA1C was Hemoglobin A1C (%) Date Value 07/16/2021 7.7 HGB A1C (no units) Date Value 12/24/2020 5.9 06/04/2020 6.3 ) Last Ophthalmology exam was within the past 6 months Last Podiatry exam was within the past 6 months Following up with Dr. Vale for history of a fib. No episodes in more than a year. Discontinued his Eliquis and recommended he continue ASA. Patient has not been taking ASA as prescribed and states he misunderstood recommendations. BP controlled on current regimen. PHQ-2 / Depression screen He in the past two weeks denies having felt down, depressed, hopeless or with little interest or pleasure in doing things. Reviewed labs through [facility]. Past medical history, appointments, medications, allergies reviewed. Previous Medical History PAST MEDICAL HISTORY Diagnosis Date Biceps tendon rupture bilateral s/p repair Class 1 obesity due to excess calories with serious comorbidity and body mass index (BMI) of 34.0 to 34.9 in adult DM II (diabetes mellitus, type II) ([facility]) Dr. Kike Mccoy. History of atrial fibrillation [address] Vale managing Hyperlipidemia LDL goal <100 09/04/2015 Hypertension, essential 07/11/2018 Injury of meniscus of left knee PEÑA (nonalcoholic steatohepatitis) Rotator cuff tear arthropathy of both shoulders Sterilization 07/08/2009 Previous Surgical History PAST SURGICAL HISTORY Procedure Laterality Date COLONOSCOPY 08/26/2016 repeat in 10 years PAST SURGICAL HISTORY OF Left 07/2020 shoulder, rotator cuff repair, bicep tendon repair-Dr. Loving PAST SURGICAL HISTORY OF Right 2019 rotator cuff repair, bicep tendon repair-Dr. Fonseca VASECTOMY UNI/BI SPX W/POSTOP SEMEN EXAMS 08/01/2009 Family History FAMILY HISTORY Problem Relation Age of Onset COPD Mother Coronary Artery Disease Father Cancer Father esophageal Coronary Artery Disease Brother Diabetes Brother Alcohol abuse Brother No Known Problems Son Patient Allergies ALLERGIES Allergen Reactions No Known Drug Aller* Current Medications Current Outpatient Medications on File Prior to Visit Medication Sig losartan (COZAAR) 50 mg tablet Take 1 tablet by mouth once daily. hydroCHLOROthiazide (HYDRODIURIL, ESIDRIX) 12.5 mg capsule Take 1 capsule by mouth once daily. metFORMIN (GLUCOPHAGE) 1,000 mg tablet Take 1 tablet by mouth twice daily with meals. atorvastatin (LIPITOR) 40 mg tablet Take 1 tablet by mouth once daily. For cholesterol. pioglitazone (ACTOS) 45 mg tablet Take 1 tablet by mouth once daily. aspirin 81 mg chewable tablet Take 1 tablet by mouth once daily. (Patient not taking: Reported on 08/15/2023) blood sugar diagnostic (BLOOD GLUCOSE TEST) test strip Test blood sugar(s) 1 times daily. Dx: 250.00. Insulin: No No current facility-administered medications on file prior to visit. Social History Social History Tobacco Use Smoking status: Never Smokeless tobacco: Never Substance Use Topics Alcohol use: Yes Alcohol/week: 2.0 standard drinks of alcohol Types: 2 Cans of Beer (12oz) per week Drug use: No Review of Symptoms REVIEW OF SYSTEMS GENERAL: No weight loss, malaise or fevers HEENT: Negative for frequent or significant headaches, No changes in hearing or vision, no nose bleeds or other nasal problems NECK: Negative for lumps, goiter, pain and significant neck swelling RESPIRATORY: Negative for cough, hemoptysis, wheezing, COPD, dyspnea or shortness of breath CARDIOVASCULAR: Negative for chest pain, leg swelling, hypertension, CHF or palpitations GI: No nausea, vomiting, or diarrhea : No history of dysuria, frequency or incontinence, No difficulty urinating, nocturia > 1 time per night or hematuria MUSCULOSKELETAL: chronic knee pain SKIN: Negative for lesions, rash, and itching PSYCH: Negative for sleep disturbance, mood disorder and recent psychosocial stressors HEMATOLOGY/LYMPHOLOGY: Negative for prolonged bleeding, bruising easily or swollen nodes ENDOCRINE: Negative for cold or heat intoleran (more content not included)... [facility] 08-15-2023 History of Presen t illness Narrative Chief Complaint Patient presents with: Physical: Labs completed last week HPI Al Gonzalez is a 58 year old male who presents here today for Above Complaints.. DIABETES MELLITUS: Mr. Gonzalez was last seen 4 months ago by endocrinology Dr. Kike Mccoy. A1c 6.8 in April. Since our last visit he denies excessive thirst or increased frequency of urination, numbness, tingling or pain in extremities, new or unusual visual symptoms, and low sugar/hypoglycemic reactions. Follows a diabetic diet generally not very much. He is compliant with medication(s) and is tolerating med(s) without any side effects. He reports checking his glucose on a 1-2 times weekly schedule with sugars in the 90-120's range on random checks. Patient's last HgA1C was Hemoglobin A1C (%) Date Value 07/16/2021 7.7 HGB A1C (no units) Date Value 12/24/2020 5.9 06/04/2020 6.3 ) Last Ophthalmology exam was within the past 6 months Last Podiatry exam was within the past 6 months Following up with Dr. Vale for history of a fib. No episodes in more than a year. Discontinued his Eliquis and recommended he continue ASA. Patient has not been taking ASA as prescribed and states he misunderstood recommendations. BP controlled on current regimen. PHQ-2 / Depression screen He in the past two weeks denies having felt down, depressed, hopeless or with little interest or pleasure in doing things. Reviewed labs through [facility]. Past medical history, appointments, medications, allergies reviewed. Previous Medical History PAST MEDICAL HISTORY Diagnosis Date Biceps tendon rupture bilateral s/p repair Class 1 obesity due to excess calories with serious comorbidity and body mass index (BMI) of 34.0 to 34.9 in adult DM II (diabetes mellitus, type II) ([facility]) Dr. Kike Mccoy. History of atrial fibrillation [address] Vale managing Hyperlipidemia LDL goal <100 09/04/2015 Hypertension, essential 07/11/2018 Injury of meniscus of left knee PEÑA (nonalcoholic steatohepatitis) Rotator cuff tear arthropathy of both shoulders Sterilization 07/08/2009 Previous Surgical History PAST SURGICAL HISTORY Procedure Laterality Date COLONOSCOPY 08/26/2016 repeat in 10 years PAST SURGICAL HISTORY OF Left 07/2020 shoulder, rotator cuff repair, bicep tendon repair-Dr. Loving PAST SURGICAL HISTORY OF Right 2019 rotator cuff repair, bicep tendon repair-Dr. Fonseca VASECTOMY UNI/BI SPX W/POSTOP SEMEN EXAMS 08/01/2009 Family History FAMILY HISTORY Problem Relation Age of Onset COPD Mother Coronary Artery Disease Father Cancer Father esophageal Coronary Artery Disease Brother Diabetes Brother Alcohol abuse Brother No Known Problems Son Patient Allergies ALLERGIES Allergen Reactions No Known Drug Aller* Current Medications Current Outpatient Medications on File Prior to Visit Medication Sig losartan (COZAAR) 50 mg tablet Take 1 tablet by mouth once daily. hydroCHLOROthiazide (HYDRODIURIL, ESIDRIX) 12.5 mg capsule Take 1 capsule by mouth once daily. metFORMIN (GLUCOPHAGE) 1,000 mg tablet Take 1 tablet by mouth twice daily with meals. atorvastatin (LIPITOR) 40 mg tablet Take 1 tablet by mouth once daily. For cholesterol. pioglitazone (ACTOS) 45 mg tablet Take 1 tablet by mouth once daily. aspirin 81 mg chewable tablet Take 1 tablet by mouth once daily. (Patient not taking: Reported on 08/15/2023) blood sugar diagnostic (BLOOD GLUCOSE TEST) test strip Test blood sugar(s) 1 times daily. Dx: 250.00. Insulin: No No current facility-administered medications on file prior to visit. Social History Social History Tobacco Use Smoking status: Never Smokeless tobacco: Never Substance Use Topics Alcohol use: Yes Alcohol/week: 2.0 standard drinks of alcohol Types: 2 Cans of Beer (12oz) per week Drug use: No Review of Symptoms REVIEW OF SYSTEMS GENERAL: No weight loss, malaise or fevers HEENT: Negative for frequent or significant headaches, No changes in hearing or vision, no nose bleeds or other nasal problems NECK: Negative for lumps, goiter, pain and significant neck swelling RESPIRATORY: Negative for cough, hemoptysis, wheezing, COPD, dyspnea or shortness of breath CARDIOVASCULAR: Negative for chest pain, leg swelling, hypertension, CHF or palpitations GI: No nausea, vomiting, or diarrhea : No history of dysuria, frequency or incontinence, No difficulty urinating, nocturia > 1 time per night or hematuria MUSCULOSKELETAL: chronic knee pain SKIN: Negative for lesions, rash, and itching PSYCH: Negative for sleep disturbance, mood disorder and recent psychosocial stressors HEMATOLOGY/LYMPHOLOGY: Negative for prolonged bleeding, bruising easily or swollen nodes ENDOCRINE: Negative for cold or heat intolerance, polyuria, polydipsia and goiter NEURO: No history of headaches, syncope, paralysis, seizures or tremors EXAM: BP 120/72 Pulse 93 Resp 16 Wt 112.3 kg (247 lb 9.6 oz) SpO2 94% BMI 36.26 kg/m General Appearance: Well appearing, alert, in no acute distress, well-hydrated, well nourished.. Skin: Skin color, texture, turgor normal, no suspicious rashes or lesions. Head: Normocephalic, no masses, lesions, tenderness or abnormalities. Eyes: Anicteric sclera. Pupils are equally round and reactive to light. Extraocular movements are intact. . Ears: External ears normal, canals clear. Nose/Sinuses: Nares normal, septum midline, mucosa normal, no drainage or sinus tenderness. Oropharynx: Lips, mucosa, and tongue normal, teeth and gums normal, oropharynx normal. Neck: Supple, no adenopathy; thyroid symmetric, normal size, no bruits. Lungs: Lungs clear to auscultation. No wheezing, rhonchi, rales.. Heart: RRR without murmur, gallop, or rubs. No ectopy. Abdomen: Normal abdominal exam, Abdomen soft, non-tender. Bowel sounds normal. No masses, organomegaly. Extremities: No deformities, edema, skin discoloration, clubbing or cyanosis. Good capillary refill. . Musculoskeletal: No joint swelling, deformity, or tenderness. Peripheral Pulses: Normal. Lymph Nodes: No cervical lymphadenopathy and No supraclavicular lymphadenopathy Feet: Shoes and socks removed, No deformities, ulcers, calluses, normal distal pulses, and sensitive to 10 gm monofilament Health Maintenance List Hepatitis B Vaccine(1 of 3 - 3-dose series) Never done Pneumococcal Vaccine(1 - PCV) Never done BP Controlled (<130/80) Never done Shingrix Vaccine(1 of 2) Never done Urine Albumin:Creatinine Ratio due on 02/13/2019 Covid-19 Vaccine(3 - Moderna series) due on 02/02/2021 LDL Cholesterol due on 12/24/2021 Depression Assessment Never done Influenza Vaccine(1) due on 07/08/2023 Diabetic Foot Exam due on 08/11/2023 HbA1C due on 10/13/2023 Dilated Retinal Exam due on 02/11/2024 Annual PCP Team Chronic Disease Visit due on 08/15/2024 Prostate Cancer Screening Discussion due on 12/24/2025 Colorectal Cancer Screening due on 08/26/2026 DTaP,Tdap,Td Vaccine(7 - Td or Tdap) due on 07/22/2031 Hepatitis C Screening Discontinued HIV Screening Discontinued ASSESSMENT/PLAN: 1. Annual physical exam - ICD9: V70.0, ICD10: Z00.00 (primary diagnosis) - Counseled on healthy diet and regular exercise - Discussed need for and benefit of weight loss. BMI 36.26 kg/(m^2) - Counseled on limiting alcohol intake to 2 drinks per day - Follow up for annual exam in one year 2. Type 2 diabetes mellitus without complication, without long-term current use of insulin (HCC) - ICD9: 250.00, ICD10: E11.9 - Controlled - Continue current medications - f/u with endocrinology recommendations. 3. Hypertension, essential - ICD9: 401.9, ICD10: I10 - Controlled - Continue current medications - Recommend home blood pressure monitoring, to bring results to next visit - Encouraged sodium restriction, DASH or Mediterranean diet - Recommend regular aerobic exercise 4. Hyperlipidemia LDL goal <100 - ICD9: 272.4, ICD10: E78.5 - Controlled - Continue current medications - Counseled on healthy diet and regular exercise 5. Class 1 obesity due to excess calories with serious comorbidity and body mass index (BMI) of 34.0 to 34.9 in adult - ICD9: 278.00, V85.34, ICD10: E66.09, Z68.34 Weight increasing - Behavioral intervention 6. Fatty liver disease, nonalcoholic - ICD9: 571.8, ICD10: K76.0 LFTs normal on recent labs. Discussed diet and exercise to promote weight loss. 7. Atrial fibrillation, unspecified type (HCC) - ICD9: 427.31, ICD10: I48.91 No recent arrhythmia. Continue current regimen. Restart ASA. F/u with cardiology as scheduled. Jeff Perry MD documented in this encounter [facility] 02-14-2023 Miscellaneous Notes Pt is going to call Dr. Mccoy for his diabetic medications. Prisca Parada LPN Due for f/u OV this month. Please call to schedule OV with our team. Patient has been identified by name and date of : Pharmacy phones for refill(s): Requested Prescriptions Pending Prescriptions Disp Refills pioglitazone (ACTOS) 45 mg tablet 90 tablet 1 Sig: Take 1 tablet by mouth once daily. Date of last office visit in primary care: 08/11/2022, no future appt scheduled, pharmacy aware patient needs to schedule appt Last 2 Encounter Wt Readings: Date: Wt: 08/11/2022 107.6 kg (237 lb 3.2 oz) 12/02/2021 107.8 kg (237 lb 9.6 oz) Previous labs/tests for medication: Diabetes: Hemoglobin A1C (%) Date Value 07/16/2021 7.7 HGB A1C (no units) Date Value 12/24/2020 5.9 06/04/2020 6.3 Please advise. Thank you. Janett Rich LPN documented in this encounter [facility] 01-24-2023 Miscellaneous Notes Patient has been identified by name and date of : Yes Requested Prescriptions Pending Prescriptions Disp Refills losartan (COZAAR) 50 mg tablet 90 tablet 3 Sig: Take 1 tablet by mouth once daily. LIS-08/11/22 Labs-08/16/22 NOV-none Med filled 04/12/22 RX INSTRUCTIONS: Patient aware RX will be sent to pharmacy. No need to notify patient. Caitie Martinez [employer] documented in this encounter [facility] 11-10-2022 Miscellaneous Notes LIS 08/11/22 NOV none Pharmacy verified in Epic Patient has been identified by name and date of : Yes Patient aware RX will be sent to pharmacy. No need to notify patient. Pharmacy phones for refill(s): Requested Prescriptions Pending Prescriptions Disp Refills hydroCHLOROthiazide (HYDRODIURIL, ESIDRIX) 12.5 mg capsule 30 capsule 12 Sig: Take 1 capsule by mouth once daily. Date of last office visit : 08/11/2022 Date of next office visit : Visit date not found Last 2 Encounter Wt Readings: Date: Wt: 08/11/2022 107.6 kg (237 lb 3.2 oz) 12/02/2021 107.8 kg (237 lb 9.6 oz) Please advise. Flores Peña Pss documented in this encounter [facility] 08-11-2022 History of Presen t illness Narrative As requested; Lab ordered today faxed to [facility] lab & [facility]. Tish Sharma LPN 08/11/2022 Patient presents with: Yearly Exam: Go over labs Pain: Right knee x3-4 months SUBJECTIVE: This is a 57 year old that is here today for Above Complaints. DM: sees endocrinology over at [facility]. Taking medications as prescribed. Checks blood sugars about weekly runs 95-130 range. Amaryl was discontinued by them. Taking his metformin and pioglitazone as prescribed. Recent A1c 6.7% Last Ophthalmology exam was within the past 12 months HTN: Patient is compliant with meds Yes Monitors bp at home: . Denies side effects: . Chest pain: No. Dyspnea: No. Edema: No. Palpitations: No. Syncope: No. Headache: No. Dizziness: No. HYPERLIPIDEMIA: Patient is taking medications: Yes. Patient is watching diet: Yes. Patient denies myalgias: Yes. Patient denies gi upset: Yes ONSET: 3-4 months LOCATION: right knee- lateral and medial sides DURATION: constant CHARACTERISTICS: dull burning pain, swelling AGGRAVATING FEATURES: walking up and down the steps ALLEVIATING FEATURES: aleve and brace RADIATION: none Denies past or current injury or surgery, excessive warmth or redness. Feels weak at times like it may give out. Needs referral to see dermatology for a family hx of skin cancer Had recent CMP, AIC, lipids, and vitamin D level completed through [facility]. Was told vitamin D a little low and to take 1000 units of vitamin D daily Recent blood work reviewed with patient PAST MEDICAL HISTORY Diagnosis Date Biceps tendon rupture bilateral s/p repair Class 1 obesity due to excess calories with serious comorbidity and body mass index (BMI) of 34.0 to 34.9 in adult DM II (diabetes mellitus, type II) ([facility]) Hyperlipidemia LDL goal <100 09/04/2015 Hypertension, essential 07/11/2018 Injury of meniscus of left knee PEÑA (nonalcoholic steatohepatitis) Rotator cuff tear arthropathy of both shoulders Sterilization 07/08/2009 ALLERGIES No Known Drug Allergies MEDICATIONS Current Outpatient Medications Medication Sig metFORMIN (GLUCOPHAGE) 1,000 mg tablet Take 1 tablet by mouth twice daily with meals. losartan (COZAAR) 50 mg tablet Take 1 tablet by mouth once daily. pioglitazone (ACTOS) 45 mg tablet Take 1 tablet by mouth once daily. atorvastatin (LIPITOR) 40 mg tablet Take 1 tablet by mouth once daily. For cholesterol. glimepiride (AMARYL) 1 mg tablet Take 1 tablet by mouth daily with breakfast. hydroCHLOROthiazide 12.5 mg capsule Take 1 capsule by mouth once daily. aspirin 81 mg chewable tablet Take 1 tablet by mouth once daily. blood sugar diagnostic (BLOOD GLUCOSE TEST) test strip Test blood sugar(s) 1 times daily. Dx: 250.00. Insulin: No Current Facility-Administered Medications Medication Dose Route Frequency perflutren lipid microspheres 1.3 mL in NaCl (PF) 0.9% 10 mL injection (DEFINITY) INTRAVENOUS DIRECTED PRN sodium chloride 0.9 % (flush) 10 mL (BD POSIFLUSH) 10 mL INTRAVENOUS DIRECTED PRN Medications and allergies reviewed by this provider. SOCIAL HISTORY Social History Tobacco Use Smoking status: Never Smokeless tobacco: Never Substance Use Topics Alcohol use: Yes Alcohol/week: 2.0 standard drinks Types: 2 Cans of Beer (12oz) per week Drug use: No REVIEW OF SYSTEMS All other reviewed and negative other than HPI. OBJECTIVE: BP 134/80 Pulse 97 Resp 16 Wt 107.6 kg (237 lb 3.2 oz) SpO2 96% BMI 34.73 kg/m . Vital signs reviewed by this provider. APPEARANCE Well appearing, alert, in no acute distress, well-hydrated, well nourished. EYES conjunctiva and sclera normal. HEART RRR with normal S1 and S2, no murmurs, no gallops, no JVD appreciated LUNG clear to auscultation. No wheezes, rhonchi, or rales EXTREMITIES Extremities normal, No deformities, No skin discoloration, No edema, and Normal pulses bilaterally. SKIN Skin color, texture, turgor normal, no suspicious rashes or lesions to exposed skin DM foot exam: shoes and socks removed, No deformities, ulcers, calluses, normal distal pulses, and sensitive to 10 gm monofilament RIGHT KNEE: no obvious deformity, erythema or swelling observed. Negative anterior and posterior drawer test. TTP medial joint line. Negative Kareen's. HEPATITIS B(1 of 3 - 3-dose series) Never done PNEUMOCOCCAL(1 - PCV) Never done BP CONTROLLED (<130/80) Never done SHINGRIX VACCINE(1 of 2) Never done URINE ALBUMIN:CREATININE RATIO due on 02/13/2019 COVID-19 VACCINE(3 - Booster for Moderna series) due on 02/02/2021 DEPRESSION ASSESSMENT Never done LDL CHOLESTEROL due on 12/24/2021 HBA1C due on 01/13/2022 INFLUENZA(1) due on 07/08/2022 DILATED RETINAL EXAM due on 09/08/2022 ANNUAL PCP TEAM CHRONIC DISEASE VISIT due on 12/02/2022 DIABETIC FOOT EXAM due on 08/11/2023 PROSTATE CANCER SCREENING DISCUSSION due on 12/24/2025 COLORECTAL CANCER SCREENING due on 08/26/2026 DTAP,TDAP,TD(6 - Td or Tdap) due on 07/22/2031 HEPATITIS C SCREENING Discontinued HIV SCREENING Discontinued ASSESSMENT/PLAN: 1. Hypertension, essential - ICD9: 401.9, ICD10: I10 (primary diagnosis) - good control - Continue current medication(s) - Encouraged dietary sodium restriction/DASH diet - Recommended regular aerobic exercise. - Recommend home blood pressure monitoring, to bring results in on next visit - Discussed need and benefit for weight loss. - Recheck in 6 months, sooner should new symptoms or problems arise. - Goal of BP <130/80 - Recommended no refined sugar, low refined starch, healthy oil intake (olive oil), healthy protein (fish) along the lines of the Mediterranean diet. 2. Family history of skin cancer - ICD9: V16.8, ICD10: Z80.8 - CONSULT TO DERMATOLOGY 3. Acute pain of right knee - ICD9: 719.46, ICD10: M25.561 - no red flag symptoms or exam findings - red flag symptoms discussed, verbalizes understanding - patient reports he is going to start exercising and will let me know if he has improvement. IF not will fax xray order over to [facility] - continue current OTC treatments - XR KNEE GENERAL 4V AP BOTH/PA BOTH/LAT/MERC RIGHT 4. Type 2 diabetes mellitus without complication, without long-term current use of insulin (HCC) - ICD9: 250.00, ICD10: E11.9 Controlled. - Continue current medications - Blood glucose monitoring on a once a day schedule - Follow up in 6 months, sooner should any other issues arise. - BP goal of <130/80 - LDL goal of <100 - ALBUMIN/CREAT RATIO RND UR - follow-up with endocrinology as recommended 5. Hyperlipidemia LDL goal <100 - ICD9: 272.4, ICD10: E78.5 - good control - Continue current medication. - Encouraged following a low fat, low cholesterol diet. - Discussed the benefits of regular aerobic exercise and weight loss. - Follow up in 6 months. - Encouraged following a low carbohydrate, healthy oil intake diet. Charu Pérez APRN.CNP Prescription instructions reviewed with patient as applicable. Patient advised if symptoms do not improve or if symptoms worsen sooner, to contact their primary care physician. Potential red flag symptoms discussed with the patient. Reviewed appropriate action plan to take if red flag symptoms occur. Patient agreeable to treatment plan. I spent a total of 30 minutes on the date of the service which included preparing to see the patient, [id number] patient care, completing clinical documentation, obtaining and/or reviewing separately obtained history, performing a medically appropriate examination, counseling and educating the patient/family/caregiver, and ordering medications, tests, or procedures. documented in this encounter [facility] 07-30-2022 Miscellaneous Notes Order faxed to [facility]. Shannon Ramirez Ma Please fax order for PSA blood work to [facility]. Charu Pérez APRN.CNP Pt called and states he has lab orders at the hospital to have lab work done. He is requesting a PSA test be done. Please fax order to [facility] lab. Shraddha Nolan LPN documented in this encounter [facility] 06-18-2022 Miscellaneous Notes Patient has been identified by name and date of : Yes Requested Prescriptions Pending Prescriptions Disp Refills metFORMIN (GLUCOPHAGE) 1,000 mg tablet 180 tablet 2 Sig: Take 1 tablet by mouth twice daily with meals. LIS-12/02/21 Labs-12/02/21 NOV-none med filled 01/27/22 RX INSTRUCTIONS: Pharmacy initiated this request. No need to notify patient. Aruna Nolan Pss documented in this encounter [facility] 04-12-2022 Miscellaneous Notes Patient has been identified by name and date of : Yes Pharmacy phones for refill(s): Pending Prescriptions Disp Refills LOSARTAN 50 MG TABLET 90 tablet Sig: Take 1 tablet by mouth once daily. JAMMIE: No Date of last office visit in primary care: 12/02/21, NOV: not scheduled Last 2 Encounter Wt Readings: Date: Wt: 12/02/2021 107.8 kg (237 lb 9.6 oz) 07/22/2021 105.7 kg (233 lb) Previous labs/tests for medication: Blood Pressure: BUN (MG/DL) Date Value 07/30/2019 13 07/30/2019 13 Sodium (MEQ/L) Date Value 12/24/2020 137 Last 1 Encounter BP Readings: Date: BP: 12/21/2021 132/76 Please advise. Thank you. Trinity Burns RN documented in this encounter [facility] 03-08-2022 Miscellaneous Notes Patient notified. Tish Sharma LPN Please call patient and let him know his blood work looks good. Continue current medications. Charu Pérez APRN.SYLVIE documented in this encounter [facility] 02-17-2022 Miscellaneous Notes Patient calls to report that Dr. Kike Mccoy didn't receive referral packet previously sent. Re-faxed referral, demographics, labs, medications, and last visit note per request to [phone]. Melinda Cuellar RN documented in this encounter [facility] 01-27-2022 Miscellaneous Notes Patient requesting lab orders be faxed to [facility]. Faxed as requested to [phone]. Trinity Burns RN documented in this encounter [facility] 01-27-2022 Miscellaneous Notes Patient returned call and given provider's message below and patient verbalized understanding. Patient states he will call back to make appt. Tony Burns RN Left a message for pt to call the office and ask to speak to a triage nurse. Shraddha Nolan LPN Patient due for follow up on his DM end of February. Please call to schedule OV. Patient has been identified by name and date of : Yes Pending Prescriptions Disp Refills METFORMIN 1,000 MG TABLET 180 tablet 0 Sig: Take 1 tablet by mouth twice daily with meals. JAMMIE: No LIS-07/22/21 Labs-12/14/21 NOV-none med filled 07/22/21 RX INSTRUCTIONS: Pharmacy initiated this request. No need to notify patient. Aarti Moreau documented in this encounter [facility] 12-02-2021 Miscellaneous Notes Pt made aware and verbalized understanding. Tish Sharma LPN I think I forgot to tell patient to start ASA 81 mg daily. Please call and let him know. Charu Pérez APRN.CNP documented in this encounter [facility] documented as of this encounter (statuses as of 01/27/2022) [facility] History of Past illness Narrative* Problem Noted Date Resolved Date Benign hypertension 05/04/2017 05/04/2017 Impaired fasting glucose 07/04/2014 015 Shoulder separation 05/20/2010 09/04/2015 Sterilization 07/08/2009 09/04/2015 Dysmetabolic syndrome X 02/06/2008 08/04/20 15 documented as of this encounter (statuses as of 01/27/2022) [facility] History of Past illness Narrative* Problem Noted Date Resolved Date Benign hypertension 05/04/2017 05/04/2017 Impaired fasting glucose 07/04/2014 015 Shoulder separation 05/20/2010 09/04/2015 Sterilization 07/08/2009 09/04/2015 Dysmetabolic syndrome X 02/06/2008 08/04/20 15 documented as of this encounter (statuses as of 02/17/2022) [facility] History of Past illness Narrative* Problem Noted Date Resolved Date Benign hypertension 05/04/2017 05/04/2017 Impaired fasting glucose 07/04/2014 015 Shoulder separation 05/20/2010 09/04/2015 Sterilization 07/08/2009 09/04/2015 Dysmetabolic syndrome X 02/06/2008 08/04/20 15 documented as of this encounter (statuses as of 04/12/2022) [facility] History of Past illness Narrative* Problem Noted Date Resolved Date Benign hypertension 05/04/2017 05/04/2017 Impaired fasting glucose 07/04/2014 015 Shoulder separation 05/20/2010 09/04/2015 Sterilization 07/08/2009 09/04/2015 Dysmetabolic syndrome X 02/06/2008 08/04/20 15 documented as of this encounter (statuses as of 05/26/2022) [facility] History of Past illness Narrative* Problem Noted Date Resolved Date Benign hypertension 05/04/2017 05/04/2017 Impaired fasting glucose 07/04/2014 015 Shoulder separation 05/20/2010 09/04/2015 Sterilization 07/08/2009 09/04/2015 Dysmetabolic syndrome X 02/06/2008 08/04/20 15 documented as of this encounter (statuses as of 05/28/2022) [facility] History of Past illness Narrative* Problem Noted Date Resolved Date Benign hypertension 05/04/2017 05/04/2017 Impaired fasting glucose 07/04/2014 015 Shoulder separation 05/20/2010 09/04/2015 Sterilization 07/08/2009 09/04/2015 Dysmetabolic syndrome X 02/06/2008 08/04/20 15 documented as of this encounter (statuses as of 06/21/2022) [facility] History of Past illness Narrative* Problem Noted Date Resolved Date Benign hypertension 05/04/2017 05/04/2017 Impaired fasting glucose 07/04/2014 015 Shoulder separation 05/20/2010 09/04/2015 Sterilization 07/08/2009 09/04/2015 Dysmetabolic syndrome X 02/06/2008 08/04/20 15 documented as of this encounter (statuses as of 07/30/2022) [facility] History of Past illness Narrative* Problem Noted Date Resolved Date Benign hypertension 05/04/2017 05/04/2017 Impaired fasting glucose 07/04/2014 015 Shoulder separation 05/20/2010 09/04/2015 Sterilization 07/08/2009 09/04/2015 Dysmetabolic syndrome X 02/06/2008 08/04/20 15 documented as of this encounter (statuses as of 08/11/2022) [facility] of Past illness Narrative* Problem Noted Date Resolved Date Benign hypertension 05/04/2017 05/04/2017 Impaired fasting glucose 07/04/2014 015 Shoulder separation 05/20/2010 09/04/2015 Sterilization 07/08/2009 09/04/2015 Dysmetabolic syndrome X 02/06/2008 08/04/20 15 documented as of this encounter (statuses as of 11/11/2022) [facility] History of Past illness Narrative* Problem Noted Date Resolved Date Benign hypertension 05/04/2017 05/04/2017 Impaired fasting glucose 07/04/2014 015 Shoulder separation 05/20/2010 09/04/2015 Sterilization 07/08/2009 09/04/2015 Dysmetabolic syndrome X 02/06/2008 08/04/20 15 documented as of this encounter (statuses as of 01/25/2023) [facility] of Past illness Narrative* Problem Noted Date Resolved Date Benign hypertension 05/04/2017 05/04/2017 Impaired fasting glucose 07/04/2014 015 Shoulder separation 05/20/2010 09/04/2015 Sterilization 07/08/2009 09/04/2015 Dysmetabolic syndrome X 02/06/2008 08/04/20 15 documented as of this encounter (statuses as of 03/15/2023) [facility] of Past illness Narrative* Problem Noted Date Diagnosed Date Resolved Date Benign hypertension 05/04/2017 05/04/20 17 Impaired fasting glucose 07/04/2014 Shoulder separation 05/20/2010 09/04/20 15 Sterilization 07/08/2009 09/04/2015 Dysmetabolic syndrome X 02/06/200807/09 documented as of this encounter (statuses as of 08/16/2023) [facility] Diagnosis Type 2 diabetes mellitus without complication, without long-term current use of insulin (HCC) [facility]* Diagnosis Hypertension, essential Unspecified essential hypertension [facility]* Diagnosis Type 2 diabetes mellitus without complication, without long-term current use of insulin (HCC) [facility]* Diagnosis Screening for prostate cancer- Primary Special screening for malignant neoplasm of prostate [facility] [place] [facility] Diagnosis Hypertension, essential- Primary Unspecified essential hypertension Family history of skin cancer Family history of other specified malignant neoplasm Acute pain of right knee Type 2 diabetes mellitus without complication, without long-term current use of insulin (HCC) Hyperlipidemia LDL goal <100 Other and unspecified hyperlipidemia [facility]* Diagnosis Hypertension, essential Unspecified essential hypertension documented in this encounter [facility] note* Diagnosis Hypertension, essential Unspecified essential hypertension documented in this encounter [facility] note* Diagnosis Type 2 diabetes mellitus without complication, without long-term current use of insulin (HCC) documented in this encounter [facility] note* Diagnosis Annual physical exam- Primary Routine general medical examination at a health care facility Type 2 diabetes mellitus without complication, without long-term current use of insulin (HCC) Hypertension, essential Unspecified essential hypertension Hyperlipidemia LDL goal <100 Other and unspecified hyperlipidemia Class 1 obesity due to excess calories with serious comorbidity and body mass index (BMI) of 34.0 to 34.9 in adult Fatty liver disease, nonalcoholic Other chronic nonalcoholic liver disease Atrial fibrillation, unspecified type (HCC) documented in this encounter [facility] for referral (narrative)* Diagnostic Procedure Only (Routine) - Pending Review Specialty Diagnoses / Procedures Referred By Sarah epstein Referred To Contact XR IMAGING Diagnoses Acute pain of right knee Procedures XR KNEE GENERAL 4V AP BOTH/PA BOTH/LAT/MERC RIGHT RADIOLOGIC EXAM KNEE COMPLETE 4/MORE VIEWS Charu Pérez APRN.CNP [id number] [place] [address] Xr Imaging Referral ID Status Reason Start Date Expiration Date Visits Requested Visits Authorized [id number] Pending Review Auto-Generat ed Referral 08/11/2022 09/10/2023 1 1 * Transition of Care (Routine) - Ref Not Required Specialty Diagnoses / Procedures Referred By Sarah epstein Referred To Contact Dermatology Diagnoses Family history of skin cancer Procedures CONSULT TO DERMATOLOGY Charu Pérez APRN.CNP [address] [place] [address] Referral ID Status Reason Start Date Expiration Date Visits Requested Visits Authorized [id number] Ref Not Required PCP Requested Referral 08/11/2022 08/11/2023 1 1 [facility] Summary Purpose Family History No Family History Records Found Advance Directives No Advanced Directives Records Found Additional Source Comments Source Comments (unrecognize d section and content) In the event this informatio n is protected by the Federal Confidentiality of Alcohol and Drug Abuse Patient Records regulations: The Federal rules restrict any use of the information to criminally investigate or prosecute any alcohol or drug abuse patient.[facility] the event this information is protected by the Federal Confidentiality of Alcohol and Drug Abuse Patient Records regulations: The Federal rules restrict any use of the information to criminally investigate or prosecute any alcohol or drug abuse patient.[facility] Healthcare[facility] the event this information is protected by the Federal Confidentiality of Alcohol and Drug Abuse Patient Records regulations: The Federal rules restrict any use of the information to criminally investigate or prosecute any alcohol or drug abuse patient.[facility] the event this information is protected by the Federal Confidentiality of Alcohol and Drug Abuse Patient Records regulations: The Federal rules restrict any use of the information to criminally investigate or prosecute any alcohol or drug abuse patient.[facility] Healthcare[facility] the event this information is protected by the Federal Confidentiality of Alcohol and Drug Abuse Patient Records regulations: The Federal rules restrict any use of the information to criminally investigate or prosecute any alcohol or drug abuse patient.[facility] the event this information is protected by the Federal Confidentiality of Alcohol and Drug Abuse Patient Records regulations: The Federal rules restrict any use of the information to criminally investigate or prosecute any alcohol or drug abuse patient.[facility] HealthcareIn the event this information is protected by the Federal Confidentiality of Alcohol and Drug Abuse Patient Records regulations: The Federal rules restrict any use of the information to criminally investigate or prosecute any alcohol or drug abuse patient.[facility] HealthcareIn the event this information is protected by the Federal Confidentiality of Alcohol and Drug Abuse Patient Records regulations: The Federal rules restrict any use of the information to criminally investigate or prosecute any alcohol or drug abuse patient.[facility] HealthcareIn the event this information is protected by the Federal Confidentiality of Alcohol and Drug Abuse Patient Records regulations: The Federal rules restrict any use of the information to criminally investigate or prosecute any alcohol or drug abuse patient.[facility] HealthcareIn the event this information is protected by the Federal Confidentiality of Alcohol and Drug Abuse Patient Records regulations: The Federal rules restrict any use of the information to criminally investigate or prosecute any alcohol or drug abuse patient.[facility] HealthcareIn the event this information is protected by the Federal Confidentiality of Alcohol and Drug Abuse Patient Records regulations: The Federal rules restrict any use of the information to criminally investigate or prosecute any alcohol or drug abuse patient.[facility] HealthcareIn the event this information is protected by the Federal Confidentiality of Alcohol and Drug Abuse Patient Records regulations: The Federal rules restrict any use of the information to criminally investigate or prosecute any alcohol or drug abuse patient.[facility] HealthcareIn the event this information is protected by the Federal Confidentiality of Alcohol and Drug Abuse Patient Records regulations: The Federal rules restrict any use of the information to criminally investigate or prosecute any alcohol or drug abuse patient.[facility] Reason for Visit (unrecogniz ed section and content) Reason Comments Request to fax lab orders to [facility] Reason Comments Fax requested Reason Onset Date Comments Refill Request 04/12/2022 Reason Comments Results Reason Comments Refill Request Reason Comments requesting lab order Reason Comments Yearly Exam Go over labs Pain Right knee x3-4 ivon hs Specialty Diagnoses / Procedures Referred By Sarah t Referred To Contact Family Medicine / FAMILY MEDICINE Diagnoses General check up on lab work results, look at knee, Procedures OFFICE/OUTPATIENT ESTABLISHED HIGH MDM 40-54 MIN 4C EST Self [employer], [employer] [address] [place] [address] Referral ID Status Reason Start Date Expiration Date Visits Re quested Visits Authorized [id number] Closed 07/29/2022 11/06/2022 1 1 Reason Onset Date Comments Refill Request 11/09/2022 Reason Onset Date Comments Refill Request 02/11/2023 Refill Request 03/15/2023 Reason Comments Physical Labs completed last week Care Teams (unrecognized sec tion and content) Lead Tank Mechanic Relationship Specialty Start Date End Date Jeff Perry MD [address] [place] [address] PCP - General Family Practice 07/25/21 Lead Tank Mechanic Relationship Specialty Start Date End Date Jeff Perry MD [address] [place] [address] PCP - General Family Practice 07/25/21 Lead Tank Mechanic Relationship Specialty Start Date End Date Jeff Perry MD [address] [place] [address] PCP - General Family Practice 07/25/21 Lead Tank Mechanic Relationship Specialty Start Date End Date Jeff Perry MD [address] [place] [address] PCP - General Family Medicine 07/25/21 Lead Tank Mechanic Relationship Specialty Start Date End Date Jeff Perry MD [address] [place] [address] PCP - General Family Medicine 07/25/21 Lead Tank Mechanic Relationship Specialty Start Date End Date Jeff Perry MD [address] [place] [address] PCP - General Family Medicine 07/25/21 Lead Tank Mechanic Relationship Specialty Start Date End Date Jeff Perry MD [address] [place] [address] PCP - General Family Medicine 07/25/21 Lead Tank Mechanic Relationship Specialty Start Date End Date Jeff Perry MD [address] [place] [address] PCP - General Family Medicine 07/25/21 (unrecognized sect ion and content) No Status Records Found INFORMATION SOURCE (unrecogn ized section and content) FOR RECORDS PERTAINING TO PATIENTS WHO ARE OR HAVE BEEN ENROLLED IN A CHEMICAL DEPENDENCY/SUBSTANCEABUSE PROGRAM, SOME INFORMATION MAY BE OMITTED. This clinical summary was aggregated from multiple sources. Caution should be exercised in using it in the provision of clinical care. This summary normalizes information from multiple sources, and as a consequence, information in this document may materially change the coding, format and clinical context of patient data. In addition, data may be omitted in some cases. CLINICAL DECISIONS SHOULD BE BASED ON THE PRIMARY CLINICAL RECORDS. [facility] [employer] [facility]. provides no warranty or guarantee of the accuracy or completeness of information in this document.
[2023-12-15 10:56] LABS: ALB/GLOB Ratio 1.3 RATIO (0.9-2.4); AST(SGOT) 16 U/L (15-37); Alanine Aminotransfer ALT/SGPT 34 U/L (16-61); Albumin, Serum 4.1 g/dL (3.2-5.0); Alkaline Phosphatase 49 U/L (45-117); Anion Gap 4 (5-15); BUN 17 mg/dL (7-18); BUN/Creat Ratio 19.1 RATIO (10-20); Calcium,Total 9.1 mg/dL (8.5-10.1); Chloride 105 mmol/L (98-107); Cholesterol 143 mg/dL (200); Creatinine, Serum 0.89 mg/dL (0.70-1.30); EST Glomerular Filtration Rate 94 mL/min (>60); Est Glom Filt Rate - Afr Amer 113 mL/min (>60); Globulin 3.1 g/dL (2.2-4.2); Glucose 146 mg/dL (74-106); High Density Lipoprotein 49 mg/dL; Potassium 3.8 mmol/L (3.5-5.1); Protein, Total 7.2 g/dL (6.4-8.2); Sodium Level 137 mmol/L (136-145); Thyroid Stim Hormone (TSH) 1.62 uIU/mL (0.358-3.74); Triglycerides 94 mg/dL; Very Low Density Lipoprotein 19 mg/dL (5-40)
[2023-12-15 11:55] LABS: Microalbumin,Random Urine 20.1 mg/L (NO RANGE EST.); Microalbumin:Creatinine Ratio 6.8 mg/g CRE (<30 mg/g CRE)
== END | disposition home or self-care (01) ==
LOC: LAB 09:09
PROVIDERS: PCP Family Medicine; Referring Provider Internal Medicine Endocrinology, Diabetes & Metabolism; Visit Provider Internal Medicine Endocrinology, Diabetes & Metabolism
DX: I10 Essential (primary) hypertension (principal); E11.9 Type 2 diabetes mellitus without complications; E78.5 Hyperlipidemia, unspecified
CPT/HCPCS: 36415; 80053; 80061; 82043; 82570; 83036; 84443

== ENCOUNTER → 2024-04-04 | Outpatient (CLI) | payer OTHER, SELFPAY ==
--- NOTE | 2024-04-04 14:36 | RAD_ITS ---
INDICATION: Pain EXAMINATION/TECHNIQUE: X-RAY - LEFT XR Knee Complete 4 Views or More 4 VIEWS COMPARISON: Prior study dated: 05/06/2017 FINDINGS: SOFT TISSUES: No soft tissue swelling or gas. No evidence of joint effusion. BONES/JOINTS: No acute fracture or subluxation.. Moderate to severe narrowing of the medial joint compartment and to lesser extent of the patellofemoral joint compartment worse than the previous exam. No sclerotic or destructive changes observed. RAD/Knee 4 or More Views IMPRESSION: Moderate to severe degenerative arthrosis. Electronically Signed: Dano Lowery MD at 15:24 EDT ,
--- NOTE | 2024-04-04 14:40 | RAD_ITS ---
INDICATION: Pain EXAMINATION/TECHNIQUE: X-RAY - RIGHT XR Knee Complete 4 Views or More 4 VIEWS COMPARISON: No relevant prior comparison study available FINDINGS: SOFT TISSUES: No soft tissue swelling or gas. No evidence of joint effusion. BONES/JOINTS: No acute fracture or subluxation.. Normal alignment. Mild narrowing of the medial joint. Mild degenerative arthrosis of the patellofemoral joint. No sclerotic or destructive changes observed. RAD/Knee 4 or More Views IMPRESSION: Mild degenerative arthrosis. Electronically Signed: Dano Lowery MD at 15:19 EDT ,
== END | disposition home or self-care (01) ==
LOC: MTRAD 14:36
PROVIDERS: PCP Family Medicine; Referring Provider Orthopaedic Surgery; Visit Provider Orthopaedic Surgery
DX: M25.561 Pain in right knee (principal); M25.562 Pain in left knee
CPT/HCPCS: 73564

== ENCOUNTER → 2024-08-13 | Outpatient (CLI) | payer OTHER, SELFPAY ==
[2024-08-13 10:32] LABS: Absolute Neutrophil Count 2.2 X10^3/uL (2.0-7.7); Basophil# 0.05 X10^3/uL; Basophil% 1.1 % (0-1); Eosinophil# 0.33 X10^3/uL; Eosinophils% 7.4 % (0-5); Hematocrit 41.2 % (40-54); Hemoglobin 13.6 g/dL (13.0-16.5); Lymphocyte % 31.3 % (19-41); Mean Corpuscular Hgb 30.6 pg (27.0-32.0); Mean Corpuscular Volume 92.6 fL (80-94); Monocyte# 0.47 X10^3/uL; Monocyte% 10.5 % (0-10); NRBC Flagged by Analyzer 0 % (0-5); Neutrophil # 2.22 X10^3/uL (2.7-7.7); Neutrophil % 49.5 % (47-70); Platelet Count 283 K/mm3 (150-450); RBC Distribution Width SD 44.2 fl (35.1-43.9); Red Blood Count 4.45 M/mm3 (4.6-6.2); White Blood Count 4.5 K/mm3 (4.4-11.0)
[2024-08-13 11:30] LABS: ALB/GLOB Ratio 1.1 RATIO (0.9-2.4); AST(SGOT) 12 U/L (15-37); Alanine Aminotransfer ALT/SGPT 24 U/L (16-61); Albumin, Serum 3.8 g/dL (3.2-5.0); Alkaline Phosphatase 52 U/L (45-117); Anion Gap 4 (5-15); BUN 18 mg/dL (7-18); BUN/Creat Ratio 20.3 RATIO (10-20); Calcium,Total 9.2 mg/dL (8.5-10.1); Chloride 105 mmol/L (98-107); Cholesterol 168 mg/dL (200); Creatinine, Serum 0.89 mg/dL (0.70-1.30); EST Glomerular Filtration Rate 94 mL/min (>60); Est Glom Filt Rate - Afr Amer 114 mL/min (>60); Globulin 3.5 g/dL (2.2-4.2); Glucose 174 mg/dL (74-106); High Density Lipoprotein 49 mg/dL; PSA,Total- Diagnostic 0.34 ng/mL (0.0-4.0); Potassium 4.2 mmol/L (3.5-5.1); Protein, Total 7.3 g/dL (6.4-8.2); Sodium Level 138 mmol/L (136-145); Triglycerides 178 mg/dL; Very Low Density Lipoprotein 36 mg/dL (5-40)
[2024-08-13 13:06] LABS: Hemoglobin A1c 6.6 % (3.8-5.6)
== END | disposition home or self-care (01) ==
LOC: LAB 09:51
PROVIDERS: PCP Family Medicine; Referring Provider Family Medicine; Visit Provider Family Medicine
DX: E11.9 Type 2 diabetes mellitus without complications (principal); Z12.5 Encounter for screening for malignant neoplasm of prostate
CPT/HCPCS: 36415; 80053; 80061; 83036; 84153; 85025

== ENCOUNTER → 2024-10-22 | Outpatient (CLI) | payer OTHER, SELFPAY ==
[2024-10-22 07:38] LABS: Bacteria 0 SEEN /hpf (None Seen); Mucous, Urine 0 SEEN /hpf (<or=2+); Squamous Epithelial Cells - UA 0 SEEN /hpf (0-5); White Blood Cells 0 SEEN /hpf (0-5)
[2024-10-22 07:46] LABS: Color, Urine Yellow (Yellow); Glucose, Dipstick Normal (Normal); Ketone-Dipstick Negative (Negative); Leukocyte Esterase-Dipstick Negative /ul (Negative); Nitrite-Dipstick Negative (Negative); Occult Blood-Urine 10 /ul (Negative); Protein-Dipstick 15 mg/dl (Negative); Specific Gravity, Urine 1.025 (1.002-1.030); Urine Bilirubin Dipstick Negative (Negative); Urine Clarity Clear (Clear); Urine Urobilinogen Normal (Normal)
[2024-10-22 07:56] LABS: Red Blood Cells-Urine 0-5 SEEN /hpf (0-5)
== END | disposition home or self-care (01) ==
PROVIDERS: PCP Family Medicine; Referring Provider Family Medicine; Visit Provider Family Medicine
DX: R80.9 Proteinuria, unspecified (principal)
CPT/HCPCS: 81001

== ENCOUNTER → 2024-11-03 | Outpatient (CLI) | payer OTHER, SELFPAY ==
--- NOTE | 2024-11-03 08:06 | US_ITS ---
STUDY: RENAL ULTRASOUND - COMPLETE REASON FOR EXAM: Male, 59 years old. Proteinuria, unspecified TECHNIQUE: Ultrasound evaluation of the kidneys was performed with real-time and static sanchez-scale imaging. COMPARISON: None. FINDINGS: RIGHT KIDNEY: Normal location of the right kidney, which is normal in size. The right kidney measures 12.5 cm. There is a normal cortex of the right kidney. The renal cortex measures 1.8 cm. There is no right renal mass or cyst. There are no right renal calculi. There is no right hydronephrosis. DISTAL RIGHT URETER: There is non-visualization of the distal right ureter. There is no demonstrated right ureterovesical junction calculus. There is a visualized right ureteral jet. LEFT KIDNEY: Normal location of the left kidney, which is normal in size. The left kidney measures 12.1 cm. There is a normal cortex of the left kidney. The renal cortex measures 2.0 cm. There is no left renal mass or cyst. There are no left renal calculi. There is no left hydronephrosis. DISTAL LEFT URETER: There is non-visualization of the distal left ureter. There is no demonstrated left ureterovesical junction calculus. There is a visualized left ureteral jet. BLADDER: The distended urinary bladder has a volume of 128 ml. The empty urinary bladder has a volume of ml. There is a normal wall thickness of the distended urinary bladder. There is no demonstrated mass within the urinary bladder. There are no demonstrated bladder calculi. US/Kidney and Bladder IMPRESSION: Normal ultrasound of the kidneys and urinary bladder. Electronically Signed: Colby Michael MD at 13:21 EST ,
== END | disposition home or self-care (01) ==
LOC: US 08:06
PROVIDERS: PCP Family Medicine; Referring Provider Family Medicine; Visit Provider Family Medicine
DX: R80.9 Proteinuria, unspecified (principal)
CPT/HCPCS: 76770

== ENCOUNTER → 2025-06-12 | Outpatient (CLI) | payer OTHER, SELFPAY ==
--- NOTE | 2025-06-12 14:52 | RAD_ITS ---
PROCEDURE: KNEE 4 OR MORE VIEWS 06/12/2025 REASON FOR EXAM: KNEE PAIN TECHNIQUE: KNEE 4 OR MORE VIEWS COMPARISON: 04/04/2024 FINDINGS: Mild medial femorotibial joint space narrowing. Fragmented tibial tuberosity. Small osteophytes. No acute bone or soft tissue pathology. RAD/Knee 4 or More Views IMPRESSION: Mild right knee osteoarthritis. 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 Reading [facility]
--- NOTE | 2025-06-12 14:52 | RAD_ITS ---
PROCEDURE: KNEE 4 OR MORE VIEWS 06/12/2025 REASON FOR EXAM: KNEE PAIN TECHNIQUE: KNEE 4 OR MORE VIEWS COMPARISON: Radiographs on 04/04/2024. FINDINGS: Moderate tricompartmental changes of degenerative joint disease, more prominent in the medial tibiofemoral compartment, progressed. Chondrocalcinosis is unchanged. Chronic fragmentation of the tibial tuberosity, unchanged. Mild osteopenia of the visualized bones. Degenerative joint disease. No fracture or dislocation is seen. No lytic or blastic bone lesion is noted. RAD/Knee 4 or More Views IMPRESSION: Degenerative joint disease. Reading [facility]
--- OUTSIDE RECORDS SUMMARY | 2025-06-12 18:52 | XMS RPT_ITS | CCD ---
Author Organization [facility] CliniSyct Care Team Providers Care Graduating Machine Operator Name Role Phone Ajay Acevedo Unavailable Joselyn Finnegan LPN Unavailable Unavailab le Joselyn Finnegan LPN Unavailable Unavailab le Curtis Ajay Shepard Unavailable Jeff Perry MD Primary Care Provider Dr. Zach Perry Primary Care Provider [phone] Dr. Zach Perry Referring Provider Dr. John Lemus Attending Provider Dr. John Brown Attending Provider Podlogar 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, 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-C Charu Referring Provider Dr. Jonathan Vale Attending Provider Podlogar 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, 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-C Charu Other Provider Belle Botello Attending Provider Unavailable Jeff Perry MD Primary Care Provider Jeff Perry MD Primary Care Provider Dr. Zach Perry Primary Care Provider Dr. Zach Perry Referring Provider FRITZ White Attending Provider Dr. Zach Perry Primary Care Provider Dr. Zach Perry Referring Provider Juliano CASAS, PA Tish Scherer Attending Provider Dr. Florin Miranda Emergency Provider Dr. Maryann Castañeda Admit Provider Dr. Maryann Castañeda Attending Provider Dr. Maryann Castañeda Other Provider Dr. Jennifer Carrillo Attending Provider Vicky GONZALEZ, Jeff Myers Primary Care Provider Dr. Zach Perry Primary Care Provider Dr. Zach Perry Referring Provider Dr. Kike Mccoy Attending Provider Juliano CASAS, PA Tish Scherer Attending Provider Jeff Perry MD Primary Care Provider Podlogar PLASTICS SEASONER OPERATOR.SYLVIE, Charu Unavailable JEFF PERRY Primary Care Unavailab le PODLOGARCHARU Attending Unavailable Vicky GONZALEZ, Dr. Serrano Primary Care Provider Dr. Zach Perry MD Referring Provider [phone] Dr. Jose Martini DO Attending Provider Dr. Kike Mccoy MD Attending Provider Zach Perry Referring Unavailable Kike Mccoy Attending Unavailable Juan Jley, Zach Primary Care Unavailable Kike Mccoy Attending Unavailable Juan Jley, Zach Primary Care Unavailable Zach Perry Referring Unavailable Zach Perry Referring Unavailable Jose Martini Attending Unavailable Vicky, Zach Primary Care Unavailable Zach Perry Referring Unavailable Jose Martini Attending Unavailable Juan Jley, Zach Primary Care Unavailable Bursley Zach Referring Unavailable Jose Martini Attending Unavailable Juan Jley, Zach Primary Care Unavailable Bursley, Zach Referring Unavailable Bursley, Zach Primary Care Unavailable Zach Perry Attending Unavailable Juan JleyZach Attending Unavailable Bursley, Zach Primary Care Unavailable Bursley, Zach Referring Unavailable Assessment, Health Risk Referring Unavaila ble Assessment, Health Risk Attending Unavaila ble Bursley, Zach Primary Care Unavailable Bursley, Zach Referring Unavailable Bursley, Zach Primary Care Unavailable Zach Perry Attending Unavailable Jose Martini Attending Unavailable Zach Perry Primary Care Unavailable Zach Perry Referring Unavailable Kike Mccoy Attending Unavailable Zach Perry Primary Care Unavailable Zach Perry Referring Unavailable Vicky GONZALEZ, Dr. Serrano Primary Care Provider Dr. Zach Perry MD Referring Provider Dr. Jose Martini DO Attending Provider Dr. Jose Martini DO Referring Provider Allergies Allergy Classification Reported Allergen(s) Allergy Type Date of Onset Reaction(s) Facility (8 sources) Lisinopril Drug Allergy 02-17-2022 Dry Cough [facility] (1 source) Lisinopril Drug Allergy 04-16-2025 [facility] Repository Medications Current Medications Medication Drug Class(es) Dates Sig (Normalized) Sig (Original) atorvastatin 40 mg oral tablet (20 sources) HMG-CoA Reductase Inhibitor Start: 02-03-2022 End: 05-29-2025 take 1 tablet by mouth once daily Atorvastatin 40 mg tablet Active 40 mg PO DAILY 90 May 29, 2025 12:00pm Controlled type 2 diabetes mellitus Type 2 diabetes mellitus with hyperglycemia Start: 11-10-2021 take 1 tablet by saturnino th once daily for hyperlipidemia atorvastatin (LIPITOR) 40 mg tablet Take 1 tablet by mouth once daily. For cholesterol. 90 tablet 0 11/10/2021 Active Comment on above: Take 1 tablet by saturnino th once daily. For cholesterol. glimepiride 1 mg oral tablet (20 sources) Sulfonylurea Start: take 1 tablet by mouth at mealtime glimepiride (AMARYL) 1 mg tablet Take 1 tablet PO with high carb meals 08/15/2023 Active Start: 12-11-2021 End: 08-11-2022 take 1 tablet by mouth once daily at breakfast glimepiride (AMARYL) 1 mg tablet Indications: Type 2 diabetes mellitus without complication, without long-term current use of insulin (HCC) Take 1 tablet by mouth daily with breakfast. 30 tablet 5 12/11/2021 08/11/2022 Discontinued (Discontinued by another Health Care Provider) Start: 08-25-2016 End: 03-30-2022 take 1 tablet by mouth once daily Glimepiride 2 MG tablet Discontinued 2 mg PO DAILY August 25, 2016 12:00am February 03, 2022 11:07am Comment on above: Take 1 tablet by saturnino th daily with breakfast. Take 1 tablet PO wit h high carb meals metFORMIN hydrochloride 1000 mg oral tablet (20 sources) Biguanide Start: End: take 1 tablet by mouth twice daily at mealtime Metformin 1,000 mg tablet Active 1000 mg PO 2 times per day with meals 180 June 10, 2025 1:10pm Start: 08-25-2016 End: 02-03-2022 take 1 tablet by mouth twice daily Metformin 500 MG tablet,ER prudence.retention 24 hr Discontinued 500 mg PO TWICE A DAY August 25, 2016 12:00am February 03, 2022 11:06am Comment on above: Take 1 tablet by saturnino th twice daily with meals. Tirzepatide (Mounjaro) 5 mg/0.5 mL pen injector (1 source) Start: 06-10-2025 Tirzepatide (Mounjaro) 5 mg/0.5 mL pen injector Active 5 mg SC EVERY WEEK 6 June 10, 2025 12:00am Completed/Discontinued Medications Medication Drug Class(es) Dates Sig (Normalized) Sig (Original) acetaminophen 325 mg / oxyCODONE hydrochloride 5 mg oral tablet (8 sources) Opioid Agonist Start: 06-11-2020 End: 06-16-2020 Oxycodone-Acetaminoph en 1 TABLET tablet Discontinued 1 - 2 {tbl} PO EVERY 6 HOURS NEEDED as needed for Pain 03 04June 11, 2020 June 15, 2020 12:00am June 16, 2020 12:02am Postoperative pain Other acute postprocedural pain Start: 06-11-2020 End: 06-16-2020 take 1 tablet by mouth every six hours as needed Oxycodone-Acetaminophen Discontinued 1 - 2 TABLET PO EVERY 6 HOURS NEEDED 03 04June 11, 2020 June 15, 2020 11:02pm apixaban 5 mg oral tablet (9 sources) Factor Xa Inhibitor Start: 10-24-2022 End: 01-26-2023 take 1 tablet by mouth twice daily Apixaban (Eliquis) 5 mg tablet Discontinued 5 mg PO TWICE A DAY 180 October 26, 2022 3:00pm January 26, 2023 2:33pm aspirin 81 mg delayed release oral tablet (20 sources) Platelet Aggregation Inhibitor, Nonsteroidal Anti-inflammatory Drug Start: 02-03-2022 End: 04-12-2022 take 1 tablet by mouth once daily Aspirin (Adult Aspirin Regimen) 81 mg tablet,delayed release (DR/EC) Discontinued 81 mg PO DAILY February 03, 2022 12:00am April 12, 2022 1:57pm Start: 12-02-2021 End: 08-15-2023 take 1 tablet by mouth once daily aspirin 81 mg chewable tablet Take 1 tablet by mouth once daily. 08/15/2023 Active Start: 11-23-2016 End: 06-22-2019 take 1 tablet by mouth once daily Aspirin 81 MG tablet Discontinued 81 mg PO DAILY@0800 0 November 23, 2016 1:00am June 22, 2019 8:28am Comment on above: Take 1 tablet by saturnino th once daily. cephalexin 500 mg oral tablet (4 sources) Cephalosporin Antibacterial Start: 0 End: 0 take 1 tablet by mouth four times daily KEFLEX 500 MG CAPS One tablet by mouth four times daily. CEPHALEXIN [id number] Royce Aleman MD Start: 01-26-2010 End: 01-31-2010 take 1 tablet by mouth four times daily KEFLEX 500 MG CAPS One tablet by mouth four times daily. CEPHALEXIN [id number] Royce Aleman MD DIABETES MEDICATION (4 sources) Start: 04-18-2017 DIABETES MEDICATION as directed DIABETES MEDICATION Stuart CASAS hydroCHLOROthiazide 12.5 mg oral capsule (20 sources) Thiazide Diuretic Start: 11-14-2023 End: 11-16-2024 take 1 capsule by mouth once daily Hydrochlorothiazide 12.5 mg capsule Discontinued 12.5 mg PO daily February 21, 2024 12:00am November 16, 2024 3:04pm Start: 12-09-2021 End: 04-18-2023 take 1 capsule by mouth once daily Hydrochlorothiazide 12.5 mg capsule Discontinued 12.5 mg PO DAILY February 17, 2022 12:00am Kelsey 12th, 2023 2:12pm Comment on above: Take 1 capsule by mo [facility] once daily. losartan potassium 25 mg oral tablet (20 sources) Angiotensin 2 Receptor Susan Start: End: take 1 tablet by mouth once daily Losartan 25 mg tablet Discontinued 25 mg PO DAILY February 03, 2022 12:00am February 17, 2022 2:25pm Start: 01-14-2022 End: 01-28-2025 take 1 tablet by mouth once daily Losartan 50 mg tablet Discontinued 50 mg PO DAILY February 17, 2022 12:00am January 28, 2025 1:10pm Comment on above: Take 1 tablet by [facility] once daily. metoprolol tartrate 25 mg oral tablet (9 sources) beta-Adrenergic Susan Start: 10-24-2022 End: 05-25-2023 Metoprolol Tartrate 25 mg tablet Discontinued 12.5 mg PO TWICE A DAY 45 3 October 26, 2022 3:00pm May 25, 2023 4:00pm Start: 10-24-2022 End: 05-25-2023 take 12.5 mg by mouth twice daily Metoprolol Tartrate Discontinued 12.5 MG PO TWICE A DAY 45 October 26, 2022 2:00pm May 25, 2023 3:00pm naproxen 500 mg oral tablet (16 sources) Nonsteroidal Anti-inflammatory Drug Start: 01-11-2020 End: 02-03-2022 take 1 tablet by mouth twice daily as needed for pain Naproxen 500 MG tablet Discontinued 500 mg PO TWICE DAILY NEEDED as needed for Pain Or Fever June 03, 2020 10:27am February 03, 2022 11:07am perflutren lipid microspheres 1.3 mL in NaCl (PF) 0.9% 10 mL injection (DEFINITY) (12 sources) Start: 12-02-2021 End: 03-03-2023 perflutren lipid microspheres 1.3 mL in NaCl (PF) 0.9% 10 mL injection (DEFINITY) pioglitazone 45 mg oral tablet (20 sources) Peroxisome Proliferator Receptor alpha Agonist, Peroxisome Proliferator Receptor gamma Agonist, Thiazolidinedione Start: 02-03-2022 End: 06-12-2025 take 1 tablet by mouth once daily Pioglitazone 45 mg tablet Discontinued 45 mg PO DAILY 90 0 February 14, 2025 12:20pm June 12, 2025 3:33pm Controlled type 2 diabetes mellitus Type 2 diabetes mellitus with hyperglycemia Start: 07-22-2021 take 1 tablet by saturnino th once daily pioglitazone (ACTOS) 45 mg tablet Indications: Type 2 diabetes mellitus without complication, without long-term current use of insulin (HCC) Take 1 tablet by mouth once daily. 30 tablet 5 07/22/2021 Active Start: 07-04-2019 End: 02-03-2022 Pioglitazone 30 MG tablet Discontinued 15 mg PO DAILY July 04, 2019 12:00am February 03, 2022 11:06am Start: 07-04-2019 End: 02-03-2022 take 15 mg by mouth once daily Pioglitazone Discontinu ed 15 MG PO DAILY July 03, 2019 11:00pm February 03, 2022 10:06am Comment on above: Take 1 tablet by saturnino th once daily. predniSONE 10 mg oral tablet (18 sources) Start: 03-27-2024 End: 06-21-2024 take 4 tablets by mouth once daily, then take 3 tablets by mouth once daily, then take 2 tablets by mouth once daily, then take 1 tablet by mouth once daily Prednisone 10 mg tablet Discontinued 10 mg PO DAILY March 27, 2024 12:00am June 21, 2024 3:32pm 4 tablets daily x3 days, then 3 tablets daily x3 days, then 2 tablets daily x3 days, then 1 tablet daily x3 days Start: 05-05-2020 End: 05-17-2020 Prednisone 10 mg tablet Disc ontinued 10 mg PO daily 30 May 05, 2020 12:00am May 16, 2020 12:00am May 17, 2020 12:03am Unspecified contact dermatitis, unspecified cause Take 4 tabs once daily days 1-3 3 tabs once daily days 4-6 2 tabs once daily days 7-9 and 1 tab once daily days 10-12. Start: 04-24-2020 End: 05-05-2020 take 3 tablets by mouth once daily, then take 2 tablets by mouth once daily, then take 1 tablet by mouth once daily Prednisone 20 mg tablet Discontinued 20 mg PO DAILY April 24, 2020 12:00am May 05, 2020 4:25pm 3 tablets daily for 3 days, then 2 tablets daily for 3 days, then 1 tablet daily for 3 days 125 ml sodium chloride 9 mg/ml prefilled syringe (12 sources) Start: 12-02-2021 End: 03-03-2023 sodium chloride 0.9 % (flush) 10 mL (BD POSIFLUSH) Tirzepatide (Mounjaro) 2.5 mg/0.5 mL pen injector (1 source) Start: 04-19-2025 End: 06-10-2025 Tirzepatide (Mounjaro) 2.5 mg/0.5 mL pen injector Discontinued 2.5 mg SC EVERY WEEK 2 April 19, 2025 12:00am June 10, 2025 1:30pm for 4 weeks zolpidem tartrate 5 mg oral tablet (8 sources) gamma-Aminobuty farrukh Acid-ergic Agonist Start: 06-11-2020 End: 11-18-2020 take 1 tablet by mouth at bedtime as needed Zolpidem 5 MG tablet Discontinued 5 mg PO AT BEDTIME NEEDED as needed for Insomnia 14 0 June 11, 2020 12:00am November 18, 2020 4:23pm Problems Active Problems Problem Classification Problem Date Documented Date Episodic/Chronic Allergic reactions (8 sources) Irritant contact dermatitis due to plant; Translations: [Irritant contact dermatitis due to plants, except food] 02-03-2022 Episodic Cardiac dysrhythmias (16 sources) Atrial fibrillation with rapid ventricular response; Translations: [Unspecified atrial fibrillation] Onset: 08-15-2024 Chronic Conditions associated with dizziness or vertigo (8 sources) Dizziness; Translations: [Dizziness and giddiness] 02-03-2022 Episodic Diabetes mellitus with complications (1 source) Type 2 diabetes mellitus with hyperglycemia; Translations: [Type 2 diabetes mellitus with hyperglycemia] Onset: 04-16-2025 Chronic Diabetes mellitus without complication (20 sources) Type 2 diabetes mellitus without complication; Translations: [Type 2 diabetes mellitus without complications] Onset: 07-29-2015 Chronic Diabetes mellitus without complication (14 sources) Acute hyperglycemia; Translations: [Hyperglycemia, unspecified] Onset: 07-04-2014 Resolved: 08-04-2015 Episodic Disorders of lipid metabolism (20 sources) Hyperlipidemia; Translations: [Hyperlipidemia, unspecified] Onset: 09-04-2015 09-04-2015 Chronic Essential hypertension (20 sources) Essential hypertension; Translations: [Essential (primary) hypertension] Onset: 05-04-2017 Resolved: 05-04-2017 07-11-2018 Chronic Fluid and electrolyte disorders (8 sources) Mild dehydration; Translations: [Dehydration] Episodic Hepatitis (9 sources) Nonalcoholic steatohepatitis; Translations: [Nonalcoholic steatohepatitis (PEÑA)] 02-03-2022 Chronic Joint disorders and dislocations; trauma-related (4 sources) Derangement of knee; Translations: [Unspecified internal derangement of left knee] Onset: 04-18-2017 04-18-2017 Chronic Nonspecific chest pain (8 sources) Chest pain; Translations: [Chest pain, unspecified] 02-03-2022 Episodic Osteoarthritis (5 sources) Bilateral osteoarthritis of knees; Translations: [Bilateral primary osteoarthritis of knee] Onset: 12-19-2024 04-04-2024 Chronic Other connective tissue disease (6 sources) Biceps tendinitis; Translations: [Bicipital tendinitis, left shoulder] 01-12-2020 Episodic Other connective tissue disease (2 sources) Bursitis of left knee; Translations: [Other bursitis of knee, left knee] 04-04-2024 Episodic Other connective tissue disease (2 sources) Bicipital tendinitis, left shoulder; Translations: [Biceps tendinitis of left upper extremity] 01-12-2020 Episodic Other liver diseases (9 sources) Non-alcoholic fatty liver; Translations: [Fatty (change of) liver, not elsewhere classified] Onset: 07-14-2016 07-14-2016 Chronic Other liver diseases (11 sources) Fatty (change of) liver, not elsewhere classified; Translations: [Other chronic nonalcoholic liver disease] Onset: 07-14-2016 07-14-2016 Chronic Other lower respiratory disease (8 sources) Dyspnea; Translations: [Shortness of breath] 02-03-2022 Episodic Other lower respiratory disease (1 source) Shortness of breath; Translations: [Shortness of breath] Episodic Other lower respiratory disease (4 sources) Hiccoughs; Translations: [Hiccough] 06-10-2023 Episodic Other non-traumatic joint disorders (1 source) Pain in right knee; Translations: [Pain in joint, lower leg] Episodic Other nutritional; endocrine; and metabolic disorders (17 sources) Obesity; Translations: [Other obesity due to excess calories] 07-22-2021 Chronic Other nutritional; endocrine; and metabolic disorders (1 source) Obesity, unspecified; Translations: [Obesity, unspecified] 04-18-2023 Chronic Other nutritional; endocrine; and metabolic disorders (8 sources) Obesity caused by energy imbalance; Translations: [Other obesity due to excess calories] 08-15-2023 Chronic Other nutritional; endocrine; and metabolic disorders (1 source) Other obesity due to excess calories; Translations: [Other obesity due to excess calories] Onset: 06-22-2024 Chronic Other nutritional; endocrine; and metabolic disorders (1 source) Body mass index (BMI) 33.0-33.9, adult; Translations: [Body mass index [BMI] 33.0-33.9, adult] Onset: 06-22-2024 Chronic Other skin disorders (8 sources) Excessive sweating; Translations: [Generalized hyperhidrosis] 02-03-2022 Episodic Residual codes; unclassified (1 source) Family history of malignant neoplasm of skin; Translations: [Family history of malignant neoplasm of other organs or systems] Episodic Sprains and strains (20 sources) Injury of knee; Translations: [Sprain of other specified parts of left knee, initial encounter] Onset: 02-20-2018 02-20-2018 Episodic Viral infection (6 sources) Disease caused by 2019-nCoV; Translations: [COVID-19] Episodic Past or Other Problems Problem Classification Problem Date Documented Da te Episodic/Chronic Genitourinary symptoms and ill-defined conditions (5 sources) Proteinuria; Translations: [Proteinuria, unspecified] Onset: 11-26-2024 08-22-2024 Episodic Joint disorders and dislocations; trauma-related (20 sources) Other tear of medial meniscus, current injury, left knee, initial encounter; Translations: [Tear of medial meniscus of knee] Onset: 05-20-2010 Resolved: 09-04-2015 05-13-2017 Episodic Other connective tissue disease (19 sources) Prepatellar bursitis of left knee; Translations: [Prepatellar bursitis, left knee] Onset: 02-20-2018 02-20-2018 Episodic Other connective tissue disease (19 sources) Rotator cuff arthropathy of right shoulder; Translations: [Unspecified rotator cuff tear or rupture of right shoulder, not specified as traumatic] Onset: 08-01-2019 08-01-2019 Episodic Other non-traumatic joint disorders (2 sources) Knee pain; Translations: [Pain in left knee] Onset: 05-06-2017 05-06-2017 Episodic Other nutritional; endocrine; and metabolic disorders (6 sources) Metabolic syndrome X; Translations: [Dysmetabolic syndrome X] Onset: 02-06-2008 Resolved: 08-04-2015 08-04-2015 Chronic Other screening for suspected conditions (not mental disorders or infectious disease) (8 sources) Patient encounter status; Translations: [Encounter for screening for malignant neoplasm of prostate] Onset: 07-08-2009 Resolved: 09-04-2015 Episodic Superficial injury; contusion (4 sources) Abrasion AND/OR friction burn of hand, infected; Translations: [Abrasion of unspecified hand] Onset: 01-26-2010 01-26-2010 Episodic Unclassified (4 sources) Pain; Translations: [Pain, unspecified] Onset: 04-18-2017 04-18-2017 Episodic Unclassified (3 sources) Removal of suture ; Translations: [Encounter for removal of sutures] Onset: 01-26-2010 Resolved: 01-26-2010 01-26-2010 Results Test Name Value Interpretation Reference Range Facility Endocrinology Visit Reporton 04-16-2025 Endocrinology Visit Report [facility] [address] [place] [address] OFFICE VISIT Date of Service: 04/16/25 MR#: [id number] Acct: [id number] Name: AL GONZALEZ Rep #: [id number] : 1965 Provider: Gilmer Mqcueen Age/Sex: 60/M Location: [facility] Status: Signed Intake Vital Signs 06/21/24 15:33 04/16/25 15:21 Height 5 ft 10 in 5 ft 10 in Weight: 242 lb 6 oz BMI 34.7 BP 144/83 H Blood Pressure Location Rt brachial Position Sitting Pulse 85 Pulse Source Monitor Pulse Oximetry (%) 93 Oxygen Delivery Method room air Intake Visit Reasons: 10 M FU, MONICA 12/21 Chief Complaint: Diabetes Is patient in pain?: No Allergies lisinopril Adverse Reaction (Intermediate, Verified 04/16/25 15:25) Dry Cough Medications ???Medication ???Instructions ???Recorded ???Confirmed ???Type metformin 1,000 mg tablet 1,000 mg PO BIDWMEAL #180 tabs 04/16/25 Rx hydrochlorothiazide 12.5 mg capsule 12.5 mg PO QDAY #90 caps 04/16/25 Rx losartan 50 mg tablet 50 mg PO DAILY 90 days #90 tabs 04/16/25 Rx pioglitazone 45 mg tablet 45 mg PO DAILY #90 tabs 02/14/25 0 04/16/25 Rx atorvastatin 40 mg tablet 40 mg PO DAILY #90 tabs 02/27/25 0 04/16/25 Rx PFSH Medical History Diabetes Obesity COVID Acute hyperglycemia Dehydration, mild Atrial fibrillation with rapid ventricular response Essential hypertension Hyperlipidemia PEÑA (nonalcoholic steatohepatitis) Diabetes mellitus type II, controlled Surgical History Injury of meniscus of left knee Rotator cuff tear arthropathy of both shoulders Biceps tendon rupture History of colonoscopy (08/26/16) History of vasectomy (08/01/09) Family History Mother COPD (chronic obstructive pulmonary disease) Father Cancer CAD (coronary artery disease) Brother Diabetes AA (alcohol abuse) Social History Smoking Status: Never smoker alcohol intake: current alcohol intake frequency: a few times a month HPI HPI Chief Complaint: Diabetes Details: AL GONZALEZ, is a 60 M who presents to the office today for follow up. A1C is 7.8% up from 6.6% He is taking pioglitazone, metformin, FRANKY and statin. He is planning a knee surgery. He stopped exercising due to knee pain. He is up 6 pounds. ROS Const Constitutional: No fatigue or weight change ENT ENT: No dizziness/vertigo Cardio Cardiology: No chest pain at rest, chest pain with exertion, shortness of breath or palpitations Musc Musculoskeletal: Positive for joint pain, myalgias, stiffness and Arthritis Skin Skin: No wounds Endo Endocrine: No fatigue or weight change Exam Const General: cooperative, healthy appearing, comfortable, no acute distress, well developed and not cushingoid Nutritional Appearance: well nourished Orientation: alert, awake and oriented x3 HENMT Head: normal to inspection Ears: hearing grossly normal bilaterally Nose: external nose normal Mouth: oral mucosae normal Eyes General: appearance normal, both eyes and all related structures Alignment and Position: alignment normal Periorbital: periorbital findings normal Eyelids: eyelids normal Conjunctivae: conjunctivae normal Neck Neck: normal visual inspection Neck mass: No Chest Chest palpation inspection: normal inspection of the chest Resp Effort Inspection: normal respiratory effort, able to speak in complete sentences, symmetric chest movement, no audible wheezes and no cough Auscultation: Bilateral: Clear to Auscultation Cardio Rate: regular rate Rhythm: regular rhythm Skin General: no rashes or lesions noted Neuro General: patient alert, patient awake and patient oriented x3 Cranial Nerves: CN's II-XI intact bilaterally Cognition: normal cognition Speech: speech normal Gait: normal gait Motor: muscle tone normal throughout Extrem General: no edema Psych Appearance: grossly normal Mental Status: mental status grossly normal Mood: congruent mood Affect: normal affect Speech and Movement: speech and movement normal Attitude: cooperative Thought Process: normal Thought Content: normal Judgment: judgment good Results POC A1C POC A1C 7.8 % Last Edit by Frank Mckenzie RN on 04/16/25 15:28 Assessment and Plan Assessment and Plan (1) Diabetes: Status: Chronic Qualifiers: Diabetes mellitus type: type 2 Diabetes mellitus skilled nursing insulin use: without watermaster use Diabetes mellitus complication status: with hyperglycemia Qualified Code(s): E11.65 - Type 2 diabetes mellitus with hyperglycemia P (more content not included)... Normal [facility] - Hematology and Cell countsOrdered By: Kike Mccoy on 04-16-2025 HbA1c (Bld) [Mass fraction] 7.8 % High 4.2-6.3 [facility] Orthopedic Visit Reporton Orthopedic Visit Report [facility] [address] [place] [address] [id number] OFFICE VISIT Date of Service: 12/19/24 MR#: [id number] Acct: [id number] Name: AL GONZALEZ Rep #: [id number] : 1965 Provider: Dr. Jose Hewitt so, DO Age/Sex: 59/M Location: [facility] Status: Signed Intake Vital Signs 06/21/24 15:33 Height 5 ft 10 in Intake Visit Reasons: BILATERAL KNEES Chief Complaint: bilateral knees Allergies lisinopril Adverse Reaction (Intermediate, Verified 12/12/24 15:55) Dry Cough PFSH Medical History Diabetes Obesity COVID Acute hyperglycemia Dehydration, mild Atrial fibrillation with rapid ventricular response Essential hypertension Hyperlipidemia PEÑA (nonalcoholic steatohepatitis) Diabetes mellitus type II, controlled Surgical History Injury of meniscus of left knee Rotator cuff tear arthropathy of both shoulders Biceps tendon rupture History of colonoscopy (08/26/16) History of vasectomy (08/01/09) Family History Mother COPD (chronic obstructive pulmonary disease) Father Cancer CAD (coronary artery disease) Brother Diabetes AA (alcohol abuse) Social History Smoking Status: Never smoker alcohol intake: current alcohol intake frequency: a few times a month HPI BILATERAL KNEES Details: This documentation accurately reflects the service provided and the decisions made by me, Dr. Jose Martini, DO 12/19/24 0756. Part of today???s visit was documented by Helena REEDER, acting as scribe. AL GONZALEZ is a 59 year old M here today for 3rd bilateral knee Euflexxa injection. Patient states that he has noticed improvement with the injections. Ortho Exam General General: Yes no acute distress Neurologic: Yes alert and Yes oriented x3 Psychologic: Yes reasonable and appropriate Right Knee Skin/Wound: Yes CDI, No erythema, No ecchymosis and No swelling Homans Sign: No Knee ROM: Yes ROM-Extension -20 to 0 and Yes ROM-Flexion 0-140 (120) Examination: Yes Med jt line tenderness and Yes Crepitus Stability: NML: Anterior Drawer, NML: Valgus 0, NML: Valgus 30, NML: Varus 0 and NML: Varus 30 Patella Translation: 1 Patella Grind: No KNEE: scar from laceration from childhood over medial aspect of the knee posterior lateral hamstring, popliteal fossa and medial knee pain no redness or signs of infection/blood clot Left Knee Skin/Wound: Yes CDI, No ecchymosis, No erythema and No swelling Knee ROM: Yes ROM-Extension -20 to 0 and Yes ROM-Flexion 0-140 (118) Examination: Yes med jt line tenderness, No Lat jt line tenderness and No TTP Pes Anserine Stability: NML: Anterior Drawer, NML: Posterior Drawer, NML: Varus 0 and NML: Varus 30 and 1+: Valgus 0 (2 mm medial gapping secondary to medial joint space narrowing) and 1+: Valgus 30 Apprehension with Lateral Translation: No Patella Translation: 1 KNEE: bursitis over anterior knee with minimal swelling no signs of infection posterior lateral hamstring, popliteal fossa and medial knee pain no redness or signs of infection/blood clot Office Procedures Euflexxa Procedure Details:: Obtained consent for injection. Under sterile conditions, injected the patients bilateral knee with 20mg/2mL of Euflexxa in each knee. The patient tolerated the injection well without any noted complication. Patient should call our office if redness develops, pain worsens or if they have any concerns. Is this Buy Bill?: Yes Yes Office Meds Euflexxa 10 mg/mL (mw 2.4-3.6 million) intra-articular syringe Performing Provider: Jose Martini DO Performing Location: [facility] Administered by: Jose Martini DO on 12/19/24 15:51 Dose Route Admin Location Dispensed Lot Number Expiration Date NDC Man ufacturer 40 mg intra-articular bilateral knee 4 mL [id number] 10/22/25 [address]-6 [employer] Supplemental Info 04/04/2024 x-ray right knee: There is moderate patellofemoral arthrosis with lateral patellar tracking and spurring there is moderate joint space narrowing on flexion view medially 04/04/2024 x-ray left knee advanced medial compartment narrowing on flexion view there is moderate patellofemoral arthrosis and moderate narrowing on the AP view medial Coding Level of Care Code Attention Newspaper Manager Diagnoses Primary osteoarthritis of both knees M17.0 Osteoarthritis type: primary CPT Codes Euflexxa Procedure - Euflexxa Charge: Yes () Assessment and Plan Assessment and Plan (1) Osteoarthritis of knees, bilateral: Status: Acute Qualifiers: Osteoarthritis type: primary Qualified Code(s): M17.0 - Bilateral (more content not included)... Normal [facility] Orthopedic Visit Reporton Orthopedic Visit Report [facility] [address] [place] [id number] OFFICE VISIT Date of Service: 12/12/24 MR#: [id number] Acct: [id number] Name: AL GONZALEZ Rep #: [id number] : 1965 Provider: Dr. Jose lloyd, DO Age/Sex: 59/M Location: [facility] [place] Status: Signed Intake Vital Signs 06/21/24 15:33 Height 5 ft 10 in Intake Visit Reasons: BILATERAL KNEES Chief Complaint: bilateral knees Allergies lisinopril Adverse Reaction (Intermediate, Verified 12/12/24 15:55) Dry Cough Medications ???Medication ???Instructions ???Recorded ???Confirmed ???Type losartan 50 mg tablet 50 mg PO DAILY 02/17/22 12/12/24 H istory atorvastatin 40 mg tablet 40 mg PO DAILY #90 tabs 02/28/24 0 12/12/24 Rx metformin 1,000 mg tablet 1,000 mg PO BIDWMEAL #180 tabs 12/12/24 Rx pioglitazone 45 mg tablet 45 mg PO DAILY #90 tabs 06/21/24 0 12/12/24 Rx hydrochlorothiazide 12.5 mg capsule 12.5 mg PO QDAY #90 caps 12/12/24 Rx PFSH Medical History Diabetes Obesity COVID Acute hyperglycemia Dehydration, mild Atrial fibrillation with rapid ventricular response Essential hypertension Hyperlipidemia PEÑA (nonalcoholic steatohepatitis) Diabetes mellitus type II, controlled Surgical History Injury of meniscus of left knee Rotator cuff tear arthropathy of both shoulders Biceps tendon rupture History of colonoscopy (08/26/16) History of vasectomy (08/01/09) Family History Mother COPD (chronic obstructive pulmonary disease) Father Cancer CAD (coronary artery disease) Brother Diabetes AA (alcohol abuse) Social History Smoking Status: Never smoker alcohol intake: current alcohol intake frequency: a few times a month HPI BILATERAL KNEES Details: This documentation accurately reflects the service provided and the decisions made by me, Dr. Jose Martini, DO 12/12/24 0817. Part of today???s visit was documented by Helena EREDER, acting as scribe. AL GONZALEZ is a 59 year old M here today for 2nd bilateral knee Euflexxa injection. Ortho Exam General General: Yes no acute distress Neurologic: Yes alert and Yes oriented x3 Psychologic: Yes reasonable and appropriate Right Knee Skin/Wound: Yes CDI, No erythema, No ecchymosis and No swelling Homans Sign: No Knee ROM: Yes ROM-Extension -20 to 0 and Yes ROM-Flexion 0-140 (120) Examination: Yes Med jt line tenderness and Yes Crepitus Stability: NML: Anterior Drawer, NML: Valgus 0, NML: Valgus 30, NML: Varus 0 and NML: Varus 30 Patella Translation: 1 Patella Grind: No KNEE: scar from laceration from childhood over medial aspect of the knee posterior lateral hamstring, popliteal fossa and medial knee pain no redness or signs of infection/blood clot Left Knee Skin/Wound: Yes CDI, No ecchymosis, No erythema and No swelling Knee ROM: Yes ROM-Extension -20 to 0 and Yes ROM-Flexion 0-140 (118) Examination: Yes med jt line tenderness, No Lat jt line tenderness and No TTP Pes Anserine Stability: NML: Anterior Drawer, NML: Posterior Drawer, NML: Varus 0 and NML: Varus 30 and 1+: Valgus 0 (2 mm medial gapping secondary to medial joint space narrowing) and 1+: Valgus 30 Apprehension with Lateral Translation: No Patella Translation: 1 KNEE: bursitis over anterior knee with minimal swelling no signs of infection posterior lateral hamstring, popliteal fossa and medial knee pain no redness or signs of infection/blood clot Supplemental Info 04/04/2024 x-ray right knee: There is moderate patellofemoral arthrosis with lateral patellar tracking and spurring there is moderate joint space narrowing on flexion view medially 04/04/2024 x-ray left knee advanced medial compartment narrowing on flexion view there is moderate patellofemoral arthrosis and moderate narrowing on the AP view medial Coding Level of Care Code Off vis,est,level 3 Diagnoses Primary osteoarthritis of both knees M17.0 Osteoarthritis type: primary Assessment and Plan Assessment and Plan (1) Osteoarthritis of knees, bilateral: Status: Acute Qualifiers: Osteoarthritis type: primary Qualified Code(s): M17.0 - Bilateral primary osteoarthritis of knee Orders: Orders Euflexxa Injection Today M17.0 - Bilateral primary osteoarthritis of knee Medications: New Euflexxa (sodium hyaluronate (viscosup)) 40 mg (4 mL) intra-articular ONCE 4 mL 0RF NS M17.0 - Bilateral primary osteoarthritis of knee Plan Second bilateral knee Euflexxa injection given today follow-up 1 week 12/12/24 1605 Date (more content not included)... Normal [facility] Orthopedic Visit Reporton Orthopedic Visit Report [facility] [address] [place] [address] OFFICE VISIT Date of Service: 12/05/24 MR#: [id number] Acct: [id number] Name: AL GONZALEZ Rep #: [id number] : 1965 Provider: Dr. Jose lloyd DO Age/Sex: 59/M Location: [facility] [place] Status: Signed Intake Vital Signs 06/21/24 15:33 Height 5 ft 10 in Intake Visit Reasons: BILATERAL KNEES Chief Complaint: bilateral knees Is patient in pain?: Yes (bilateral knees) Pain scale (1-10): 4 Allergies lisinopril Adverse Reaction (Intermediate, Verified 12/05/24 15:47) Dry Cough Medications ???Medication ???Instructions ???Recorded ???Confirmed ???Type losartan 50 mg tablet 50 mg PO DAILY 02/17/22 12/05/24 History atorvastatin 40 mg tablet 40 mg PO DAILY #90 tabs 02/28/24 12/05/24 Rx metformin 1,000 mg tablet 1,000 mg PO BIDWMEAL #180 tabs 06/01/24 12/05/24 Rx pioglitazone 45 mg tablet 45 mg PO DAILY #90 tabs 06/21/24 12/05/24 Rx hydrochlorothiazide 12.5 mg capsule 12.5 mg PO QDAY #90 caps 11/16/24 12/05/24 Rx PFSH Medical History Diabetes Obesity COVID Acute hyperglycemia Dehydration, mild Atrial fibrillation with rapid ventricular response Essential hypertension Hyperlipidemia PEÑA (nonalcoholic steatohepatitis) Diabetes mellitus type II, controlled Surgical History Injury of meniscus of left knee Rotator cuff tear arthropathy of both shoulders Biceps tendon rupture History of colonoscopy (08/26/16) History of vasectomy (08/01/09) Family History Mother COPD (chronic obstructive pulmonary disease) Father Cancer CAD (coronary artery disease) Brother Diabetes AA (alcohol abuse) Social History Smoking Status: Never smoker alcohol intake: current alcohol intake frequency: a few times a month HPI BILATERAL KNEES Chief Complaint: bilateral knee pain Details: This documentation accurately reflects the service provided and the decisions made by me, Dr. Jose Martini, DO 12/05/24 0839. Part of today???s visit was documented by [ ], acting as scribe. AL GONZALEZ is a 59 year old M here today for 1st bilateral knee Euflexxa injection. Ortho Exam General General: Yes no acute distress and Yes well groomed Neurologic: Yes alert and Yes oriented x3 Psychologic: Yes reasonable and appropriate Right Knee Skin/Wound: Yes CDI, No erythema, No ecchymosis and No swelling Homans Sign: No Knee ROM: Yes ROM-Extension -20 to 0 and Yes ROM-Flexion 0-140 (120) Examination: Yes Med jt line tenderness and Yes Crepitus Stability: NML: Anterior Drawer, NML: Valgus 0, NML: Valgus 30, NML: Varus 0 and NML: Varus 30 Patella Translation: 1 Patella Grind: No KNEE: scar from laceration from childhood over medial aspect of the knee posterior lateral hamstring, popliteal fossa and medial knee pain no redness or signs of infection/blood clot Left Knee Skin/Wound: Yes CDI, No ecchymosis, No erythema and No swelling Knee ROM: Yes ROM-Extension -20 to 0 and Yes ROM-Flexion 0-140 (118) Examination: Yes med jt line tenderness, No Lat jt line tenderness and No TTP Pes Anserine Stability: NML: Anterior Drawer, NML: Posterior Drawer, NML: Varus 0 and NML: Varus 30 and 1+: Valgus 0 (2 mm medial gapping secondary to medial joint space narrowing) and 1+: Valgus 30 Apprehension with Lateral Translation: No Patella Translation: 1 KNEE: bursitis over anterior knee with minimal swelling no signs of infection posterior lateral hamstring, popliteal fossa and medial knee pain no redness or signs of infection/blood clot Office Procedures Euflexxa Procedure Details:: Obtained consent for injection. Under sterile conditions, injected the patients bilateral knees with 2 mls Euflexxa each knee. The patient tolerated the injection well without any noted complication. Patient should call our office if redness develops, pain worsens or if they have any concerns. Is this Buy Bill?: Yes Yes Office Meds Euflexxa 10 mg/mL (mw 2.4-3.6 million) intra-articular syringe Performing Provider: Jose Martini DO Performing Location: [facility] Administered by: Jose Martini DO on 12/05/24 15:50 Dose Route Admin Location Dispensed Lot Number Expiration Date NDC Man ufacturer 40 mg intra-articular bilateral knees 4 mL [id number] 10/22/25 [address]-3 [employer] Supplemental Info 04/04/2024 x-ray right knee: 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 Normal [facility] 11-08-2024 SYLVIEN Telephone (FAMPWS) RUPALIAL Ivey ([id number]) 1965 M Date Time Provider Department 11/08/24 JEFF PERRY During your visit today, we recorded the following information about you: Ju Iverson LPN 11/08/2024 11:25 AM Signed Patient calling, states he had his US on 11/03 at [facility]. Asking if PCP has received the results. Please advise. Jeff Perry MD 11/08/2024 2:33 PM Signed His ultrasound of the kidneys and bladder was normal. Nothing to explain small amount of protein and blood. With recent labs showing normal kidney function, would recommend rechecking UA at future OV. Recommend 6 month f/u in February. Belle Abdi LPN 11/08/2024 2:45 PM Signed Message left for patient to return call and request to speak with a nurse to review provider's message. STACIA Joel Krystle, RN 11/08/2024 2:56 PM Signed Patient calls and notified of results and providers instructions. Patient verbalizes understanding. Patient reports he will have lab completed at [facility] and call back digger operator to February follow up to request order and have it faxed to [facility]. Ivory Taveras RN Allergies As of Date: 11/08/2024 Noted Allergy Reaction NO KNOWN DRUG ALLERGIES 11/15/2005 Date Reviewed: 08/15/2024 Reviewed by: Tish Sharma LPN - Fully Assessed Reason for Visit: Results [95] Primary Visit Diagnosis:Microscopic hematuria [R31.29] Prescriptions as of 11/08/2024 - losartan (COZAAR) 50 mg tablet Take 1 tablet by mouth once daily. - hydroCHLOROthiazide 12.5 mg capsule Take 1 capsule by mouth once daily. - aspirin 81 mg chewable tablet Take 1 tablet by mouth once daily. - glimepiride (AMARYL) 1 mg tablet Take 1 tablet PO with high carb meals - atorvastatin (LIPITOR) 40 mg tablet Take 1 tablet by mouth once daily. For cholesterol. - pioglitazone (ACTOS) 45 mg tablet Take 1 tablet by mouth once daily. - metFORMIN (GLUCOPHAGE) 1,000 mg tablet Take 1 tablet by mouth twice daily with meals. - blood sugar diagnostic (BLOOD GLUCOSE TEST) test strip Test blood sugar(s) 1 times daily. Dx: 250.00. Insulin: No Problem List As Of Date 11/08/2024 Noted Resolved Dysmetabolic syndrome X [E88.810] 02/06/2008 08/04/2015 Sterilization [Z30.2] 07/08/2009 09/04/2015 Shoulder separation [S43.006A] 05/20/2010 09/04/2015 Impaired fasting glucose [R73.01] 07/04/2014 08/04/2015 Type 2 diabetes mellitus without complication (*07/29/2015 Hyperlipidemia LDL goal <100 [E78.5] 09/04/2015 Fatty liver disease, nonalcoholic [K76.0] 07/14/2016 Benign hypertension [I10] 05/04/2017 05/04/2017 Injury of meniscus of left knee [S83.8X2A] 02/20/2018 Prepatellar bursitis, left knee [M70.42] 02/20/2018 Other tear of medial meniscus, current injury, *05/06/2017 Hypertension, essential [I10] 07/11/2018 Rotator cuff tear arthropathy of right shoulder*08/01/2019 Class 1 obesity due to excess calories with ser* Microscopic hematuria [R31.29] Encounter Status:Closed by IVORY TAVERAS on 11/08/24 Normal [facility] Kidney and Bladderon 024 Kidney and Bladder [facility] [address] [place] [address] Kidney and Bladder MR#: [id number] Acct: [id number] Name: AL GONZALEZ Rep #: [id number] : 1965 M 59 From: Colby Michael MD PCP: Dr. Zach Perry MD Status: REG CLI Study: Kidney and Bladder Date of Exam: 11/03/24 Exam# [id number] Ordering Dr: Zach Perry [id number] STUDY: RENAL ULTRASOUND - COMPLETE REASON FOR EXAM: Male, 59 years old. Proteinuria, unspecified TECHNIQUE: Ultrasound evaluation of the kidneys was performed with real-time and static sanchez-scale imaging. COMPARISON: None. FINDINGS: RIGHT KIDNEY: Normal location of the right kidney, which is normal in size. The right kidney measures 12.5 cm. There is a normal cortex of the right kidney. The renal cortex measures 1.8 cm. There is no right renal mass or cyst. There are no right renal calculi. There is no right hydronephrosis. DISTAL RIGHT URETER: There is non-visualization of the distal right ureter. There is no demonstrated right ureterovesical junction calculus. There is a visualized right ureteral jet. LEFT KIDNEY: Normal location of the left kidney, which is normal in size. The left kidney measures 12.1 cm. There is a normal cortex of the left kidney. The renal cortex measures 2.0 cm. There is no left renal mass or cyst. There are no left renal calculi. There is no left hydronephrosis. DISTAL LEFT URETER: There is non-visualization of the distal left ureter. There is no demonstrated left ureterovesical junction calculus. There is a visualized left ureteral jet. BLADDER: The distended urinary bladder has a volume of 128 ml. The empty urinary bladder has a volume of ml. There is a normal wall thickness of the distended urinary bladder. There is no demonstrated mass within the urinary bladder. There are no demonstrated bladder calculi. US/Kidney and Bladder IMPRESSION: Normal ultrasound of the kidneys and urinary bladder. Electronically Signed: Colby Michael MD at 13:21 EST , CC: Dr. Zach Perry MD Carpet Winder: Signed Normal [facility] 10-30-2024 [facility] Telephone (FAMPWS) RUPALIAL Uche ([id number]) 1965 M Date Time Provider Department 10/30/24 [facility] During your visit today, we recorded the following information about you: Jeff Perry MD 10/30/2024 11:44 AM Signed Received patient's repeat UA from [facility] which shows continued small amount of protein and small amount of blood. Protein is likely 2/2 diabetes. Will check US of kidneys for further workup. Belle Abdi LPN 10/30/2024 12:02 PM Signed Phoned patient and reviewed results with him. Patient voiced understanding and he requested order be sent to [facility]. He will contact them for scheduling after [place]. Belle Abdi LPN Allergies As of Date: 10/30/2024 Noted Allergy Reaction NO KNOWN DRUG ALLERGIES 11/15/2005 Date Reviewed: 08/15/2024 Reviewed by: Tish Sharma LPN - Fully Assessed Reason for Visit: Results [95] Primary Visit Diagnosis:Proteinuria, unspecified type [R80.9] Order(s): KIDNEY/BLADDER [2434123] Order #: [id number] FUTURE Prescriptions as of 10/30/2024 - losartan (COZAAR) 50 mg tablet Take 1 tablet by mouth once daily. - hydroCHLOROthiazide 12.5 mg capsule Take 1 capsule by mouth once daily. - aspirin 81 mg chewable tablet Take 1 tablet by mouth once daily. - glimepiride (AMARYL) 1 mg tablet Take 1 tablet PO with high carb meals - atorvastatin (LIPITOR) 40 mg tablet Take 1 tablet by mouth once daily. For cholesterol. - pioglitazone (ACTOS) 45 mg tablet Take 1 tablet by mouth once daily. - metFORMIN (GLUCOPHAGE) 1,000 mg tablet Take 1 tablet by mouth twice daily with meals. - blood sugar diagnostic (BLOOD GLUCOSE TEST) test strip Test blood sugar(s) 1 times daily. Dx: 250.00. Insulin: No Problem List As Of Date 10/30/2024 Noted Resolved Dysmetabolic syndrome X [E88.810] 02/06/2008 08/04/2015 Sterilization [Z30.2] 07/08/2009 09/04/2015 Shoulder separation [S43.006A] 05/20/2010 09/04/2015 Impaired fasting glucose [R73.01] 07/04/2014 08/04/2015 Type 2 diabetes mellitus without complication (*07/29/2015 Hyperlipidemia LDL goal <100 [E78.5] 09/04/2015 Fatty liver disease, nonalcoholic [K76.0] 07/14/2016 Benign hypertension [I10] 05/04/2017 05/04/2017 Injury of meniscus of left knee [S83.8X2A] 02/20/2018 Prepatellar bursitis, left knee [M70.42] 02/20/2018 Other tear of medial meniscus, current injury, *05/06/2017 Hypertension, essential [I10] 07/11/2018 Rotator cuff tear arthropathy of right shoulder*08/01/2019 Class 1 obesity due to excess calories with ser* Encounter Status:Closed by BELLE ABDI on 10/30/24 Normal [facility] Urinalysis, Completeon 10-22 RBC 0-5 SEEN Normal 0-5 [facility] Comment on above: Order Comment: Urine , Random Performed By: #### L 400.0001 ####[facility] [address] [place], [place], [id number] BACTERIA 0 SEEN Normal None Seen [facility] Comment on above: Order Comment: Urine , Random Performed By: #### L 400.0001 ####[facility] [address] [place], [address] EPI,SQUAMOUS 0 SEEN Normal 0-5 [facility] Comment on above: Order Comment: Urine , Random Performed By: #### L 400.0001 ####[facility] [address] [place], [address] Mucus Ql (Urine sed) 0 SEEN Normal [facility] Comment on above: Order Comment: Urine , Random Performed By: #### L 400.0001 ####[facility] [address] [place], [place], [address] WBC 0 SEEN Normal 0-5 [facility] Comment on above: Order Comment: Urine , Random Performed By: #### L 400.0001 ####[facility] [address] [place], [address] CNPNon 08-22-2024 [facility] Telephone (FAMWS) AL GONZALEZ ([id number]) 1965 M Date Time Provider Department 08/22/24 JEFF PERRY [facility] During your visit today, we recorded the following information about you: Jeff Perry MD 08/22/2024 12:08 PM Signed Labs completed at [facility] on 08/13 shows controlled DM with A1c of 6.6 and UA is negative for infection. Noted some protein in urine. Recheck UA in 1 month. No change in regimen. Belle Abdi LPN 08/22/2024 1:23 PM Signed Message left for patient to return call and speak with a nurse to review provider's message. STACIA Joel Linda M, LPN 08/24/2024 11:07 AM Signed Spoke with pt gave information provided. Pt voices understanding. Lab for future ua was faxed to [facility]. Allergies As of Date: 08/22/2024 Noted Allergy Reaction NO KNOWN DRUG ALLERGIES 11/15/2005 Date Reviewed: 08/15/2024 Reviewed by: Tish Sharma LPN - Fully Assessed Reason for Visit: Results [95] Primary Visit Diagnosis:Proteinuria, unspecified type [R80.9] Order(s):URINALYSIS, WITH MICROSCOPIC [SQUAWMIC] Order #: [id number] FUTURE Prescriptions as of 09/26/2024 - losartan (COZAAR) 50 mg tablet Take 1 tablet by mouth once daily. - hydroCHLOROthiazide 12.5 mg capsule Take 1 capsule by mouth once daily. - aspirin 81 mg chewable tablet Take 1 tablet by mouth once daily. - glimepiride (AMARYL) 1 mg tablet Take 1 tablet PO with high carb meals - atorvastatin (LIPITOR) 40 mg tablet Take 1 tablet by mouth once daily. For cholesterol. - pioglitazone (ACTOS) 45 mg tablet Take 1 tablet by mouth once daily. - metFORMIN (GLUCOPHAGE) 1,000 mg tablet Take 1 tablet by mouth twice daily with meals. - blood sugar diagnostic (BLOOD GLUCOSE TEST) test strip Test blood sugar(s) 1 times daily. Dx: 250.00. Insulin: No Problem List As Of Date 08/22/2024 Noted Resolved Dysmetabolic syndrome X [E88.810] 02/06/2008 08/04/2015 Sterilization [Z30.2] 07/08/2009 09/04/2015 Shoulder separation [S43.006A] 05/20/2010 09/04/2015 Impaired fasting glucose [R73.01] 07/04/2014 08/04/2015 Type 2 diabetes mellitus without complication (*07/29/2015 Hyperlipidemia LDL goal <100 [E78.5] 09/04/2015 Fatty liver disease, nonalcoholic [K76.0] 07/14/2016 Benign hypertension [I10] 05/04/2017 05/04/2017 Injury of meniscus of left knee [S83.8X2A] 02/20/2018 Prepatellar bursitis, left knee [M70.42] 02/20/2018 Other tear of medial meniscus, current injury, *05/06/2017 Hypertension, essential [I10] 07/11/2018 Rotator cuff tear arthropathy of right shoulder*08/01/2019 Class 1 obesity due to excess calories with ser* Encounter Status:Closed by JEFF PERRY on 09/26/24 Normal [facility] CNOVon 08-15-2024 CNOV Office Visit (FAMPWS ) RUPALIAL RICO ([id number]) 1965 M Date Time Provider Department 08/15/24 5:00 PM CHARU PÉREZ During your visit today, we recorded the following information about you: Pulse Respiration Blood pressure Weight 81/minute 18/minute 132/84 109.5 kg Charu Pérez APRN.[employer] 08/15/2024 4:56 PM Signed 08/15/2024 Patient presents with: Results: Needs form for work completed SUBJECTIVE: This is a 59 year old that is here today for Above Complaints. DIABETES MELLITUS: Follows with [facility] endocrinology with last appointment last month. Last A1c 6.8% per patient. No medication changes at that time. Denies excessive thirst or increased frequency of urination, chest pain or dyspnea , numbness, tingling or pain in extremities, new or unusual visual symptoms, low sugar/hypoglycemic reactions, weight loss/gain, lightheadedness/dizzin ess, and bowel changes/loose stools. Follows a diabetic diet most of the time. He is compliant with medication(s) and is tolerating med(s) without any side effects. He reports checking his glucose on a infrequent to not at all basis schedule with sugars in the fasting 98-120 range. Patient's last HgA1C was Hemoglobin A1C (%) Date Value 07/16/2021 7.7 HGB A1C (no units) Date Value 12/24/2020 5.9 06/04/2020 6.3 ) Last Ophthalmology exam was in the last month per patient Atrial fib: follows with [facility] cardiology office visit on 02/21/2024. No medication changes made at that time. Denies SOB, dyspnea, cough, orthopnea, chest pain, palpitations or leg edema HTN: Patient is compliant with meds Yes Monitors bp at home: No. Denies side effects: Yes. Chest pain: No. Dyspnea: No. Edema: No. Palpitations: No. Syncope: No. Headache: No. Dizziness: No. HYPERLIPIDEMIA: Patient is taking medications: Yes. Patient is watching diet: Yes. Patient denies myalgias: Yes. Patient denies gi upset: Yes PAST MEDICAL HISTORY Diagnosis Date Biceps tendon rupture bilateral s/p repair Class 1 obesity due to excess calories with serious comorbidity and body mass index (BMI) of 34.0 to 34.9 in adult DM II (diabetes mellitus, type II) ([facility]) Dr. Kike Mccoy. History of atrial fibrillation [address] Vale managing Hyperlipidemia LDL goal <100 09/04/2015 Hypertension, essential 07/11/2018 Injury of meniscus of left knee PEÑA (nonalcoholic steatohepatitis) Rotator cuff tear arthropathy of both shoulders Sterilization 07/08/2009 ALLERGIES No Known Drug Allergies MEDICATIONS Current Outpatient Medications Medication Sig losartan (COZAAR) 50 mg tablet Take 1 tablet by mouth once daily. hydroCHLOROthiazide 12.5 mg capsule Take 1 capsule by mouth once daily. aspirin 81 mg chewable tablet Take 1 tablet by mouth once daily. glimepiride (AMARYL) 1 mg tablet Take 1 tablet PO with high carb meals atorvastatin (LIPITOR) 40 mg tablet Take 1 tablet by mouth once daily. For cholesterol. pioglitazone (ACTOS) 45 mg tablet Take 1 tablet by mouth once daily. metFORMIN (GLUCOPHAGE) 1,000 mg tablet Take 1 tablet by mouth twice daily with meals. blood sugar diagnostic (BLOOD GLUCOSE TEST) test strip Test blood sugar(s) 1 times daily. Dx: 250.00. Insulin: No No current facility-administered medications for this visit. Medications and allergies reviewed by this provider. SOCIAL HISTORY Social History Tobacco Use Smoking status: Never Smokeless tobacco: Never Substance Use Topics Alcohol use: Yes Alcohol/week: 2.0 standard drinks of alcohol Types: 2 Cans of Beer (12oz) per week Drug use: No REVIEW OF SYSTEMS All other reviewed and negative other than HPI. OBJECTIVE: BP 132/84 Pulse 81 Resp 18 Wt 109.5 kg (241 lb 6.5 oz) SpO2 94% BMI 35.35 kg/m? . Vital signs reviewed by this provider. APPEARANCE Well appearing, alert, in no acute distress, well-hydrated, well nourished. EYES PERRLA, conjunctiva and sclera normal. HEART RRR with normal S1 and S2, no murmurs, no gallops, no JVD appreciated LUNG clear to auscultation EXTREMITIES Extremities normal, No deformities, No skin discoloration, No edema, and Normal pulses bilaterally. SKIN Skin color, texture, turgor normal, no suspicious rashes or lesions to exposed skin DM foot exam: shoes and socks removed, No deformities, ulcers, calluses, normal distal pulses, and sensitive to 10 gm monofilament Depression Screening Never done Anxiety Screening Never done BP Controlled (<130/80) Never done Urine Albumin:Creatinine Ratio due on 02/13/2019 HbA1C due on 10/13/2023 Dilated Retinal Exam due on 02/11/2024 LDL Cholesterol due on 08/09/2024 Hepatitis B Vaccine(1 of 3 - 19+ 3-dose series) due on 08/15/2024 Shingrix Vaccine(1 of 2) due on 08/15/2024 Pneumococcal Vaccine(1 of 2 - PCV) due on 08/15/2024 Influenza Vaccine(1) due on 05/06/2025 Covid-19 Vaccine(3 - (more content not included)... Normal [facility] CBC W/Diff, Automatedon 10-0 Absolute Lymph 1.40 X10 3/uL Normal 0.83-4.51 [facility] Comment on above: Performed By: #### L 500.4100, L500.4050, L100.0100, L501.9985, L501.9940 #### [facility] [address], [address] Absolute Neut 2.2 X10 3/uL Normal 2.0-7.7 [facility] Comment on above: Performed By: #### L 500.4100, L500.4050, L100.0100, L501.9985, L501.9940 #### [facility] [address] [place], [address] Basophils/100 WBC (Bld) 1.1 % High 0-1 [facility] Comment on above: Performed By: #### L 500.4100, L500.4050, L100.0100, L501.9985, L501.9940 #### [facility] [address] [place], [address] Eosinophils/100 WBC (Bld) 7.4 % High 0-5 [facility] Comment on above: Performed By: #### L 500.4100, L500.4050, L100.0100, L501.9985, L501.9940 #### [facility] [address] [place], [address] Erythrocyte distribution width (RBC) [Ratio] 13.0 % Normal 11.6-14.6 [facility] Comment on above: Performed By: #### L 500.4100, L500.4050, L100.0100, L501.9985, L501.9940 #### [facility] [address] [place], [address] Hematocrit (Bld) [Volume fraction] 41.2 % Normal 40-54 [facility] Comment on above: Performed By: #### L 500.4100, L500.4050, L100.0100, L501.9985, L501.9940 #### [facility] [address] [place], [address] Hemoglobin (Bld) [Mass/Vol] 13.6 g/dL Normal 13.0-16.5 [facility] Comment on above: Performed By: #### L 500.4100, L500.4050, L100.0100, L501.9985, L501.9940 #### [facility] [address] [place], [address] IG% 0.200 Normal 0.0-0.9 [facility] Comment on above: Result Comment: IG% - Immature Granulocytes (promyelocytes, myelocytes and metamyelocytes) > 1% indicates that a LEFT SHIFT is Present. Performed By: #### L 500.4100, L500.4050, L100.0100, L501.9985, L501.9940 #### [facility] [address] [place], [address] Lymphocytes/100 WBC (Bld) 31.3 % Normal 19-41 [facility] Comment on above: Performed By: #### L 500.4100, L500.4050, L100.0100, L501.9985, L501.9940 #### [facility] [address] [place], [address] MCH (RBC) [Entitic mass] 30.6 pg Normal 27.0-32.0 [facility] Comment on above: Performed By: #### L 500.4100, L500.4050, L100.0100, L501.9985, L501.9940 #### [facility] [address] [place], [address] MCHC (RBC) [Mass/Vol] 33.0 g/dL Normal 32-36 [facility] Comment on above: Performed By: #### L 500.4100, L500.4050, L100.0100, L501.9985, L501.9940 #### [facility] [address] [place], [address] MCV (RBC) [Entitic vol] 92.6 fL Normal 80-94 [facility] Comment on above: Performed By: #### L 500.4100, L500.4050, L100.0100, L501.9985, L501.9940 #### [facility] [address] [place], [address] Monocytes/100 WBC (Bld) 10.5 % High 0-10 [facility] Comment on above: Performed By: #### L 500.4100, L500.4050, L100.0100, L501.9985, L501.9940 #### [facility] [address] [place], [address] Neutrophils/100 WBC (Bld) 49.5 % Normal 47-70 [facility] Comment on above: Performed By: #### L 500.4100, L500.4050, L100.0100, L501.9985, L501.9940 #### [facility] [address] [place], [address] Nucleated RBC (Bld) [#/Vol] 0 10*3/uL Normal 0-5 [facility] Comment on above: Performed By: #### L 500.4100, L500.4050, L100.0100, L501.9985, L501.9940 #### [facility] [address] [place], [address] Platelet mean volume (Bld) [Entitic vol] 9.0 fL Normal 6.2-12.0 [facility] Comment on above: Performed By: #### L 500.4100, L500.4050, L100.0100, L501.9985, L501.9940 #### [facility] [address] [place], [address] Platelets (Bld) [#/Vol] 283 10*3/uL Normal 150-450 [facility] Comment on above: Performed By: #### L 500.4100, L500.4050, L100.0100, L501.9985, L501.9940 #### [facility] [address] [place], [address] RBC (Bld) [#/Vol] 4.45 10*6/uL Low 4.6-6.2 [facility] Comment on above: Performed By: #### L 500.4100, L500.4050, L100.0100, L501.9985, L501.9940 #### [facility] [address] [place], [address] RDW SD 44.2 fl High 35.1-43.9 [facility] Comment on above: Performed By: #### L 500.4100, L500.4050, L100.0100, L501.9985, L501.9940 #### [facility] [address] [place], [address] WBC (Bld) [#/Vol] 4.5 10*3/uL Normal 4.4-11.0 [facility] Comment on above: Performed By: #### L 500.4100, L500.4050, L100.0100, L501.9985, L501.9940 #### [facility] [address] [place], [address] CBC, Employeeon 08-13-2024 Absolute Lymph 1.30 X10 3/uL Normal 0.83-4.51 [facility] Comment on above: Performed By: #### L 100.0200, L500.2900, L400.0100 #### [facility] [address] [place], [address] Absolute Neut 2.1 X10 3/uL Normal 2.0-7.7 [facility] Comment on above: Performed By: #### L 100.0200, L500.2900, L400.0100 #### [facility] [address] [place], [address] Basophils/100 WBC (Bld) 0.9 % Normal 0-1 [facility] Comment on above: Performed By: #### L 100.0200, L500.2900, L400.0100 #### [facility] [address] [place], [address] Eosinophils/100 WBC (Bld) 7.0 % High 0-5 [facility] Comment on above: Performed By: #### L 100.0200, L500.2900, L400.0100 #### [facility] [address] [place], [address] Erythrocyte distribution width (RBC) [Ratio] 12.9 % Normal 11.6-14.6 [facility] Comment on above: Performed By: #### L 100.0200, L500.2900, L400.0100 #### [facility] [address] [place], [address] Hematocrit (Bld) [Volume fraction] 41.6 % Normal 40-54 [facility] Comment on above: Performed By: #### L 100.0200, L500.2900, L400.0100 #### [facility] [address] [place], [address] Hemoglobin (Bld) [Mass/Vol] 13.7 g/dL Normal 13.0-16.5 [facility] Comment on above: Performed By: #### L 100.0200, L500.2900, L400.0100 #### [facility] [address] [place], [address] Lymphocytes/100 WBC (Bld) 30.5 % Normal 19-41 [facility] Comment on above: Performed By: #### L 100.0200, L500.2900, L400.0100 #### [facility] [address] [place], [address] MCH (RBC) [Entitic mass] 30.7 pg Normal 27.0-32.0 [facility] Comment on above: Performed By: #### L 100.0200, L500.2900, L400.0100 #### [facility] [address] [place], [address] MCHC (RBC) [Mass/Vol] 32.9 g/dL Normal 32-36 [facility] Comment on above: Performed By: #### L 100.0200, L500.2900, L400.0100 #### [facility] [address] [place], [address] MCV (RBC) [Entitic vol] 93.3 fL Normal 80-94 [facility] Comment on above: Performed By: #### L 100.0200, L500.2900, L400.0100 #### [facility] [address] [place], [address] Monocytes/100 WBC (Bld) 11.0 % High 0-10 [facility] Comment on above: Performed By: #### L 100.0200, L500.2900, L400.0100 #### [facility] [address] [place], [address] Neutrophils/100 WBC (Bld) 50.4 % Normal 47-70 [facility] Comment on above: Performed By: #### L 100.0200, L500.2900, L400.0100 #### [facility] [address] [place], [address] NRBC # 0.00 10 3/uL Normal 0-5 [facility] Comment on above: Performed By: #### L 100.0200, L500.2900, L400.0100 #### [facility] [address] [place], [address] Nucleated RBC (Bld) [#/Vol] 0 10*3/uL Normal 0-5 [facility] Comment on above: Performed By: #### L 100.0200, L500.2900, L400.0100 #### [facility] [address] [place], [address] Platelet mean volume (Bld) [Entitic vol] 9.0 fL Normal 6.2-12.0 [facility] Comment on above: Performed By: #### L 100.0200, L500.2900, L400.0100 #### [facility] [address] [place], [address] Platelets (Bld) [#/Vol] 275 10*3/uL Normal 150-450 [facility] Comment on above: Performed By: #### L 100.0200, L500.2900, L400.0100 #### [facility] [address] [place], [address] RBC (Bld) [#/Vol] 4.46 10*6/uL Low 4.6-6.2 [facility] Comment on above: Performed By: #### L 100.0200, L500.2900, L400.0100 #### [facility] [address] [place], [address] RDW SD 44.1 fl High 35.1-43.9 [facility] Comment on above: Performed By: #### L 100.0200, L500.2900, L400.0100 #### [facility] [address] [place], [address] WBC (Bld) [#/Vol] 4.3 10*3/uL Low 4.4-11.0 [facility] Comment on above: Performed By: #### L 100.0200, L500.2900, L400.0100 #### [facility] [address] [place], [address] Comprehensive Metabolic Prof [facility] 08-13-2024 Albumin [Mass/Vol] 3.8 g/dL Normal 3.2-5.0 [facility] Comment on above: Performed By: #### L 500.4100, L500.4050, L100.0100, L501.9985, L501.9940 #### [facility] [address] [place], [address] Albumin/Globulin [Mass ratio] 1.1 {ratio} Normal 0.9-2.4 [facility] Comment on above: Performed By: #### L 500.4100, L500.4050, L100.0100, L501.9985, L501.9940 #### [facility] [address] [place], [address] ALK P 52 U/L Normal 45-117 [facility] Comment on above: Performed By: #### L 500.4100, L500.4050, L100.0100, L501.9985, L501.9940 #### [facility] [address] [place], [address] ALT [Catalytic activity/Vol] 24 U/L Normal 16-61 [facility] Comment on above: Performed By: #### L 500.4100, L500.4050, L100.0100, L501.9985, L501.9940 #### [facility] [address] [place], [address] AST [Catalytic activity/Vol] 12 U/L Low 15-37 [facility] Comment on above: Performed By: #### L 500.4100, L500.4050, L100.0100, L501.9985, L501.9940 #### [facility] [address] [place], [address] Bilirubin [Mass/Vol] 0.90 mg/dL Normal 0.20-1.00 [facility] Comment on above: Result Comment: For patients on eltrombopag therapy, use of Dimension [place] TBIL is not recommended. Performed By: #### L 500.4100, L500.4050, L100.0100, L501.9985, L501.9940 #### [facility] [address] [place], [address] BUN/CRE 20.3 RATIO High 10-20 [facility] Comment on above: Performed By: #### L 500.4100, L500.4050, L100.0100, L501.9985, L501.9940 #### [facility] [address] [place], [address] CA,Total 9.2 mg/dL Normal 8.5-10.1 [facility] Comment on above: Performed By: #### L 500.4100, L500.4050, L100.0100, L501.9985, L501.9940 #### [facility] [address] [place], [address] Chloride [Moles/Vol] 105 mmol/L Normal 98-107 [facility] Comment on above: Performed By: #### L 500.4100, L500.4050, L100.0100, L501.9985, L501.9940 #### [facility] [address] [place], [address] CO2 [Moles/Vol] 30.0 mmol/L Normal 21.0-32.0 [facility] Comment on above: Performed By: #### L 500.4100, L500.4050, L100.0100, L501.9985, L501.9940 #### [facility] [address] [place], [address] Creatinine [Mass/Vol] 0.89 mg/dL Normal 0.70-1.30 [facility] Comment on above: Result Comment: The validity of the calculated GFR GFRAA in patients over 70 years has not been determined. Clinical correlation is essential. Performed By: #### L 500.4100, L500.4050, L100.0100, L501.9985, L501.9940 #### [facility] [address] [place], [address] EST GFR - AA 114 mL/min Normal >60 [facility] Comment on above: Result Comment: Afri can Citizen [place] GFR Calc Performed By: #### L 500.4100, L500.4050, L100.0100, L501.9985, L501.9940 #### [facility] [address] [place], [address] GAP 4 Low 5-15 [facility] Comment on above: Performed By: #### L 500.4100, L500.4050, L100.0100, L501.9985, L501.9940 #### [facility] [address] [place], [address] GFR/1.73 sq M.predicted among non-blacks MDRD (S/P/Bld) [Vol rate/Area] 94 mL/min/{1.73_m2} Normal >60 [facility] Comment on above: Result Comment: Non- GFR Calc Performed By: #### L 500.4100, L500.4050, L100.0100, L501.9985, L501.9940 #### [facility] [address] [place], [address] Globulin (S) [Mass/Vol] 3.5 g/dL Normal 2.2-4.2 [facility] Comment on above: Performed By: #### L 500.4100, L500.4050, L100.0100, L501.9985, L501.9940 #### [facility] [address] [place], [address] Glucose [Mass/Vol] 174 mg/dL High 74-106 [facility] Comment on above: Result Comment: Fast ing Glucose result greater than or equal to 126 mg/dL suggests DIABETES MELLITUS per A.D.A. criteria. Performed By: #### L 500.4100, L500.4050, L100.0100, L501.9985, L501.9940 #### [facility] [address] [place], [address] Potassium [Moles/Vol] 4.2 mmol/L Normal 3.5-5.1 [facility] Comment on above: Performed By: #### L 500.4100, L500.4050, L100.0100, L501.9985, L501.9940 #### [facility] [address] [place], [address] Sodium [Moles/Vol] 138 mmol/L Normal 136-145 [facility] Comment on above: Performed By: #### L 500.4100, L500.4050, L100.0100, L501.9985, L501.9940 #### [facility] [address] [place], [address] T PROT 7.3 g/dL Normal 6.4-8.2 [facility] Comment on above: Performed By: #### L 500.4100, L500.4050, L100.0100, L501.9985, L501.9940 #### [facility] [address] [place], [address] Urea nitrogen [Mass/Vol] 18 mg/dL Normal 7-18 [facility] Comment on above: Performed By: #### L 500.4100, L500.4050, L100.0100, L501.9985, L501.9940 #### [facility] [address] [place], [address] Employee [employer] 4 Albumin [Mass/Vol] 3.8 g/dL Normal 3.2-5.0 [facility] Comment on above: Performed By: #### L 100.0200, L500.2900, L400.0100 ####[facility] [address] [place], [address] Albumin/Globulin [Mass ratio] 1.2 {ratio} Normal 0.9-2.4 [facility] Comment on above: Performed By: #### L 100.0200, L500.2900, L400.0100 ####[facility] [address] [place], [address] ALK P 51 U/L Normal 45-117 [facility] Comment on above: Performed By: #### L 100.0200, L500.2900, L400.0100 ####[facility] [address] [place], [address] ALT [Catalytic activity/Vol] 24 U/L Normal 16-61 [facility] Comment on above: Performed By: #### L 100.0200, L500.2900, L400.0100 ####[facility] [address] [place], [address] AST [Catalytic activity/Vol] 13 U/L Low 15-37 [facility] Comment on above: Performed By: #### L 100.0200, L500.2900, L400.0100 ####[facility] [address] [place], [address] Bilirubin [Mass/Vol] 0.80 mg/dL Normal 0.20-1.00 [facility] Comment on above: Result Comment: For patients on eltrombopag therapy, use of Dimension [place] TBIL is not recommended. Performed By: #### L 100.0200, L500.2900, L400.0100 ####[facility] [address] [place], [address] Bilirubin.direct [Mass/Vol] 0.15 mg/dL Normal 0.00-0.30 [facility] Comment on above: Performed By: #### L 100.0200, L500.2900, L400.0100 ####[facility] [address] [place], [address] BUN/CRE 20.0 RATIO Normal 10-20 [facility] Comment on above: Performed By: #### L 100.0200, L500.2900, L400.0100 ####[facility] [address] [place], [address] CA,Total 8.9 mg/dL Normal 8.5-10.1 [facility] Comment on above: Performed By: #### L 100.0200, L500.2900, L400.0100 ####[facility] [address] [place], [address] Chloride [Moles/Vol] 105 mmol/L Normal 98-107 [facility] Comment on above: Performed By: #### L 100.0200, L500.2900, L400.0100 ####[facility] [address] [place], [address] CHOL:HDL 3.70 Normal [facility] Comment on above: Performed By: #### L 100.0200, L500.2900, L400.0100 ####[facility] [address] [place], [address] Cholesterol [Mass/Vol] 174 mg/dL Normal 200 [facility] Comment on above: Result Comment: <200 mg/dL Desirable 200-240 mg/dL Borderline >240 mg/dL High Risk Performed By: #### L 100.0200, L500.2900, L400.0100 ####[facility] [address] [place], [address] Cholesterol in HDL [Mass/Vol] 47 mg/dL Normal [facility] Comment on above: Result Comment: The drugs N-Acetylcysteine and Metamizole may falsely depress this assay. Reference Range HDL <40 mg/dL Low HDL Cholesterol HDL >or= 60 mg/dL High HDL Cholesterol Performed By: #### L 100.0200, L500.2900, L400.0100 ####[facility] [address] [place], [address] Cholesterol in LDL [Mass/Vol] 91 mg/dL Normal 0-130 [facility] Comment on above: Performed By: #### L 100.0200, L500.2900, L400.0100 ####[facility] [address] [place], [address] Cholesterol in VLDL [Mass/Vol] 36 mg/dL Normal 5-40 [facility] Comment on above: Performed By: #### L 100.0200, L500.2900, L400.0100 ####[facility] [address] [place], [address] CO2 [Moles/Vol] 29.0 mmol/L Normal 21.0-32.0 [facility] Comment on above: Performed By: #### L 100.0200, L500.2900, L400.0100 ####[facility] [address] [place], [address] Creatinine [Mass/Vol] 0.95 mg/dL Normal 0.70-1.30 [facility] Comment on above: Result Comment: The validity of the calculated GFR GFRAA in patients over 70 years has not been determined. Clinical correlation is essential. Performed By: #### L 100.0200, L500.2900, L400.0100 ####[facility] [address] [place], [address] EST GFR - AA 105 mL/min Normal >60 [facility] Comment on above: Result Comment: Afri can Citizen [place] GFR Calc Performed By: #### L 100.0200, L500.2900, L400.0100 ####[facility] [address] [place], [address] GAP 6 Normal 5-15 [facility] Comment on above: Performed By: #### L 100.0200, L500.2900, L400.0100 ####[facility] [address] [place], [address] GFR/1.73 sq M.predicted among non-blacks MDRD (S/P/Bld) [Vol rate/Area] 87 mL/min/{1.73_m2} Normal >60 [facility] Comment on above: Result Comment: Non- GFR Calc Performed By: #### L 100.0200, L500.2900, L400.0100 ####[facility] [address] [place], [address] Globulin (S) [Mass/Vol] 3.3 g/dL Normal 2.2-4.2 [facility] Comment on above: Performed By: #### L 100.0200, L500.2900, L400.0100 ####[facility] [address] [place], [address] Glucose [Mass/Vol] 174 mg/dL High 74-106 [facility] Comment on above: Result Comment: Fast ing Glucose result greater than or equal to 126 mg/dL suggests DIABETES MELLITUS per A.D.A. criteria. Performed By: #### L 100.0200, L500.2900, L400.0100 ####[facility] [address] [place], [address] LDH 196 U/L Normal 87-241 [facility] Comment on above: Performed By: #### L 100.0200, L500.2900, L400.0100 ####[facility] [address] [place], [address] Phosphate [Mass/Vol] 2.5 mg/dL Normal 2.5-4.9 [facility] Comment on above: Performed By: #### L 100.0200, L500.2900, L400.0100 ####[facility] [address] [place], [address] Potassium [Moles/Vol] 4.2 mmol/L Normal 3.5-5.1 [facility] Comment on above: Performed By: #### L 100.0200, L500.2900, L400.0100 ####[facility] [address] [place], [address] Sodium [Moles/Vol] 139 mmol/L Normal 136-145 [facility] Comment on above: Performed By: #### L 100.0200, L500.2900, L400.0100 ####[facility] [address] [place], [address] T PROT 7.1 g/dL Normal 6.4-8.2 [facility] Comment on above: Performed By: #### L 100.0200, L500.2900, L400.0100 ####[facility] [address] [place], [address] Triglyceride [Mass/Vol] 179 mg/dL Normal [facility] Comment on above: Result Comment: The drugs N-Acetylcysteine and Metamizole may falsely depress this assay. Serum Triglycerides Reference Interval Normal <150 mg/dL Borderline high 150 - 199 mg/dL High 200 - 499 mg/dL Very High > or = 500 mg/dL Performed By: #### L 100.0200, L500.2900, L400.0100 ####[facility] [address] [place], [address] Urea nitrogen [Mass/Vol] 19 mg/dL High 7-18 [facility] Comment on above: Performed By: #### L 100.0200, L500.2900, L400.0100 ####[facility] [address] [place], [address] URIC 6.3 mg/dL Normal 3.5-7.2 [facility] Comment on above: Result Comment: The drugs N-Acetylcysteine and Metamizole may falsely depress this assay. Performed By: #### L 100.0200, L500.2900, L400.0100 ####[facility] [address] [place], [address] Hemoglobin A1con 08-13-2024 HbA1c (Bld) [Mass fraction] 6.6 % High 3.8-5.6 [facility] Comment on above: Result Comment: Norm al < 5.7 % Prediabetic 5.7 - 6.4 % Diabetic >or= 6.5 % Please note range changes. Performed By: #### L 500.4100, L500.4050, L100.0100, L501.9985, L501.9940 #### [facility] [address] [place], [address] Lipid Profileon 08-13-2024 Cholesterol [Mass/Vol] 168 mg/dL Normal 200 [facility] Comment on above: Result Comment: <200 mg/dL Desirable 200-240 mg/dL Borderline >240 mg/dL High Risk Performed By: #### L 500.4100, L500.4050, L100.0100, L501.9985, L501.9940 #### [facility] [address] [place], [address] Cholesterol in HDL [Mass/Vol] 49 mg/dL Normal [facility] Comment on above: Result Comment: The drugs N-Acetylcysteine and Metamizole may falsely depress this assay. Reference Range HDL <40 mg/dL Low HDL Cholesterol HDL >or= 60 mg/dL High HDL Cholesterol Performed By: #### L 500.4100, L500.4050, L100.0100, L501.9985, L501.9940 #### [facility] [address] [place], [address] Cholesterol in LDL [Mass/Vol] 83 mg/dL Normal 0-130 [facility] Comment on above: Performed By: #### L 500.4100, L500.4050, L100.0100, L501.9985, L501.9940 #### [facility] [address] [place], [address] Cholesterol in VLDL [Mass/Vol] 36 mg/dL Normal 5-40 [facility] Comment on above: Performed By: #### L 500.4100, L500.4050, L100.0100, L501.9985, L501.9940 #### [facility] [address] [place], [address] Triglyceride [Mass/Vol] 178 mg/dL Normal [facility] Comment on above: Result Comment: The drugs N-Acetylcysteine and Metamizole may falsely depress this assay. Serum Triglycerides Reference Interval Normal <150 mg/dL Borderline high 150 - 199 mg/dL High 200 - 499 mg/dL Very High > or = 500 mg/dL Performed By: #### L 500.4100, L500.4050, L100.0100, L501.9985, L501.9940 #### [facility] [address] [place], [address] PSA,Total- Diagnosticon 10-0 PSA, DIAGNOSTIC 0.34 ng/mL Normal 0.0-4.0 [facility] Comment on above: Result Comment: This test was performed using the TPSA assay method for the [employer] chemistry system. Values obtained with different assay methods cannot be used interchangably. When changing PSA assays in the course of monitoring a patient, additional sequential testing should be carried out to confirm baseline values. Performed By: #### L 500.4100, L500.4050, L100.0100, L501.9985, L501.9940 #### [facility] [address] [place], [address] Urinalysis, Employeeon 08-13 BILIRUBIN URINE Negative Normal Negative [facility] Comment on above: Order Comment: CLEAN CATCH Performed By: #### L 100.0200, L500.2900, L400.0100 ####[facility] [address] [place], [address] Clarity (U) Clear Normal Clear [facility] Comment on above: Order Comment: CLEAN CATCH Performed By: #### L 100.0200, L500.2900, L400.0100 ####[facility] [address] [place], [address] Color (U) Yellow Normal Yellow [facility] Comment on above: Order Comment: CLEAN CATCH Performed By: #### L 100.0200, L500.2900, L400.0100 ####[facility] [address] [place], [address] GLUCOSE, UR Normal Normal Normal [facility] Comment on above: Order Comment: CLEAN CATCH Performed By: #### L 100.0200, L500.2900, L400.0100 ####[facility] [address] [place], [address] KETONE UR Negative Normal Negative [facility] Comment on above: Order Comment: CLEAN CATCH Performed By: #### L 100.0200, L500.2900, L400.0100 ####[facility] [address] [place], [address] LEUK ESTERASE Negative Normal Negative [facility] Comment on above: Order Comment: CLEAN CATCH Performed By: #### L 100.0200, L500.2900, L400.0100 ####[facility] [address] [place], [address] Nitrite Ql (U) Negative Normal Negative [facility] Comment on above: Order Comment: CLEAN CATCH Performed By: #### L 100.0200, L500.2900, L400.0100 ####[facility] [address] [place], [address] OCCULT BLOOD-UR Negative Normal Negative [facility] Comment on above: Order Comment: CLEAN CATCH Performed By: #### L 100.0200, L500.2900, L400.0100 ####[facility] [address] [place], [address] pH UR 6.0 Normal 5.0 - 8.0 [facility] Comment on above: Order Comment: CLEAN CATCH Performed By: #### L 100.0200, L500.2900, L400.0100 ####[facility] [address] [place], [address] PROT DIPSTX 15 mg/dl Abnormal Negative [facility] Comment on above: Order Comment: CLEAN CATCH Performed By: #### L 100.0200, L500.2900, L400.0100 ####[facility] [address] [place], [address] SP.GR. DIPSTX 1.020 Normal 1.002-1.030 [facility] Comment on above: Order Comment: CLEAN CATCH Performed By: #### L 100.0200, L500.2900, L400.0100 ####[facility] [address] [place], [address] UROBILI Normal Normal Normal [facility] Comment on above: Order Comment: CLEAN CATCH Performed By: #### L 100.0200, L500.2900, L400.0100 ####[facility] [address] [place], [address] CNPNon 07-30-2024 [facility] AL GONZALEZ ([id number]) 1965 M Date Time Provider Department 07/30/24 [facility] During your visit today, we recorded the following information about you: Belle Barber 07/30/2024 10:16 AM Signed Patient has apt 08/15 and requesting a PSA order to be sent to [facility] (because he works there) Please advise Jeff Perry MD 07/31/2024 9:06 AM Signed Orders approved. Shannon Ramirez MA 07/31/2024 9:28 AM Signed Pt notified. Orders faxed to [facility]. Shannon Ramirez MA Allergies As of Date: 07/30/2024 Noted Allergy Reaction NO KNOWN DRUG ALLERGIES 11/15/2005 Date Reviewed: 08/15/2023 Reviewed by: Belle Abdi LPN - Fully Assessed Reason for Visit: Orders [681] Cmt: PSA Primary Visit Diagnosis:Type 2 diabetes mellitus without complication, without long-term current use of insulin (HCC) [E11.9] Other Visit Diagnosis:Screening for prostate cancer [Z12.5] Order(s):LIPID PANEL BASIC [SQLIPB] Order #: [id number] FUTURE PROSTATE-SPECIFIC ANTIGEN DIAGNOSTIC [SQPSA] Order #: [id number] FUTURE COMPREHENSIVE METABOLIC PANEL [SQCMP] Order #: [id number] FUTURE COMPLETE BLOOD COUNT AND DIFFERENTIAL [SQCBCDIF] Order #: [id number] FUTURE HEMOGLOBIN A1C [KBIPH9Q] Order #: [id number] FUTURE Prescriptions as of 07/31/2024 - losartan (COZAAR) 50 mg tablet Take 1 tablet by mouth once daily. - hydroCHLOROthiazide 12.5 mg capsule Take 1 capsule by mouth once daily. - aspirin 81 mg chewable tablet Take 1 tablet by mouth once daily. - glimepiride (AMARYL) 1 mg tablet Take 1 tablet PO with high carb meals - atorvastatin (LIPITOR) 40 mg tablet Take 1 tablet by mouth once daily. For cholesterol. - pioglitazone (ACTOS) 45 mg tablet Take 1 tablet by mouth once daily. - metFORMIN (GLUCOPHAGE) 1,000 mg tablet Take 1 tablet by mouth twice daily with meals. - blood sugar diagnostic (BLOOD GLUCOSE TEST) test strip Test blood sugar(s) 1 times daily. Dx: 250.00. Insulin: No Problem List As Of Date 07/30/2024 Noted Resolved Dysmetabolic syndrome X [E88.810] 02/06/2008 08/04/2015 Sterilization [Z30.2] 07/08/2009 09/04/2015 Shoulder separation [S43.006A] 05/20/2010 09/04/2015 Impaired fasting glucose [R73.01] 07/04/2014 08/04/2015 Type 2 diabetes mellitus without complication (*07/29/2015 Hyperlipidemia LDL goal <100 [E78.5] 09/04/2015 Fatty liver disease, nonalcoholic [K76.0] 07/14/2016 Benign hypertension [I10] 05/04/2017 05/04/2017 Injury of meniscus of left knee [S83.8X2A] 02/20/2018 Prepatellar bursitis, left knee [M70.42] 02/20/2018 Other tear of medial meniscus, current injury, *05/06/2017 Hypertension, essential [I10] 07/11/2018 Rotator cuff tear arthropathy of right shoulder*08/01/2019 Class 1 obesity due to excess calories with ser* Encounter Status:Closed by SHANNON RAMIREZ on 07/31/24 Normal [facility] Endocrinology Visit Reporton 06-21-2024 Endocrinology Visit Report [facility] [address] [place] [address] OFFICE VISIT Date of Service: 06/21/24 MR#: [id number] Acct: [id number] Name: AL GONZALEZ Rep #: [id number] : 1965 Provider: Gilmer Mcqueen Age/Sex: 59/M Location: [facility] Status: Signed Intake Vital Signs 12/20/23 15:45 04/04/24 14:25 06/21/24 15:33 Height 5 ft 11 in 5 ft 11 in 5 ft 10 in Weight: 236 lb BMI 33.8 BP 121/77 H Blood Pressure Location Lt brachial Position Sitting Respiration 16 Pulse 87 Pulse Source Monitor Temp 96.9 F L Temp Source Temporal Pulse Oximetry (%) 92 Oxygen Delivery Method room air Intake Visit Reasons: 6 M FU Chief Complaint: diabetes Accompanied by: Self Is patient in pain?: No Allergies lisinopril Adverse Reaction (Intermediate, Verified 06/21/24 15:31) Dry Cough Medications ???Medication ???Instructions ???Recorded ???Confirmed ???Type losartan 50 mg tablet 50 mg PO DAILY 02/17/22 06/21/24 History hydrochlorothiazide 12.5 mg capsule 12.5 mg PO QDAY 02/21/24 06/21/24 History atorvastatin 40 mg tablet 40 mg PO DAILY #90 tabs 02/28/24 06/21/24 Rx metformin 1,000 mg tablet 1,000 mg PO BIDWMEAL #180 tabs 06/01/24 06/21/24 Rx pioglitazone 45 mg tablet 45 mg PO DAILY #90 tabs 06/21/24 06/21/24 Rx PFSH Medical History Diabetes Obesity COVID Acute hyperglycemia Dehydration, mild Atrial fibrillation with rapid ventricular response Essential hypertension Hyperlipidemia PEÑA (nonalcoholic steatohepatitis) Diabetes mellitus type II, controlled Surgical History Injury of meniscus of left knee Rotator cuff tear arthropathy of both shoulders Biceps tendon rupture History of colonoscopy (08/26/16) History of vasectomy (08/01/09) Family History Mother COPD (chronic obstructive pulmonary disease) Father Cancer CAD (coronary artery disease) Brother Diabetes AA (alcohol abuse) Social History Smoking Status: Never smoker alcohol intake: current alcohol intake frequency: a few times a month HPI HPI Chief Complaint: diabetes Details: AL GONZALEZ, is a 59 M who presents to the office today for follow up. A1C is 6.8% He is taking pioglitazone, metformin, FRANKY and statin. He has lost weight. He states he is reducing his junk food and eating smaller portions. He has no complaints. ROS Const Constitutional: No anorexia, excessive sweating, malaise, night sweats, weight change or change in appetite Eyes Eyes: No change in vision ENT ENT: No hearing loss, nasal congestion or difficulty swallowing Cardio Cardiology: No chest pain at rest, excessive sweating, shortness of breath, dyspnea on exertion, irregular heart rhythm or palpitations Musc Musculoskeletal: No abnormal gait, joint pain, numbness or tingling Neuro Neurology: No abnormal gait, memory loss, numbness or tingling Psych Psychiatric: No change in appetite, No memory loss and No Thoughts of harming yourself/Others Resp Respiratory: No cough, chest congestion or shortness of breath Gastro GI: No abdominal pain, constipation, diarrhea or difficulty swallowing Genitourinary Male: No burning urination Skin Skin: No hair loss in leg, itchy eyes, rash or skin ulcer Endo Endocrine: No excessive sweating or weight change Aller/Imm Allergy/Immunologic: No itchy eyes Exam Const General: cooperative, healthy appearing, comfortable, no acute distress, well developed and not cushingoid Nutritional Appearance: well nourished Orientation: alert, awake and oriented x3 HENMT Head: normal to inspection Ears: hearing grossly normal bilaterally Nose: external nose normal Mouth: oral mucosae normal Eyes General: appearance normal, both eyes and all related structures Alignment and Position: alignment normal Periorbital: periorbital findings normal Eyelids: eyelids normal Conjunctivae: conjunctivae normal Neck Neck: normal visual inspection Neck mass: No Thyroid: thyroid normal Carotids: no bruits Lymphatic: no lymphadenopathy noted Chest Chest palpation inspection: normal inspection of the chest Resp Effort Inspection: normal respiratory effort, able to speak in complete sentences, symmetric chest movement, no audible wheezes and no cough Auscultation: Bilateral: Clear to Auscultation Cardio Rate: regular rate Rhythm: regular rhythm GI Inspection: normal to inspection Skin General: no rashes or lesions noted Neuro General: patient alert, patient awake and patient oriented x3 Cranial Nerves: CN's II-XI intact bilat (more content not included)... Normal [facility] Basophil percentageOrdered B y: Kike Mccoy on 12-15-2023 Bilirubin [Mass/Vol] 0.70 mg/dL 0.20-1.00 [facility] Comment on above: For patients on eltr ombopag therapy, use of Dimension [place] TBIL is not recommended. Chloride [Moles/Vol] 105 mmol/L 98-107 [facility] Cholesterol [Mass/Vol] 143 mg/dL <200 [facility] Comment on above: <200 mg/dL Desirable 200-240 mg/dL Borderline >240 mg/dL High Risk Glucose [Mass/Vol] 146 mg/dL 74-106 [facility] Comment on above: Fasting Glucose resu lt greater than or equal to 126 mg/dL suggests DIABETES MELLITUS per A.D.A. criteria. Potassium [Moles/Vol] 3.8 mmol/L 3.5-5.1 [facility] Protein [Mass/Vol] 7.2 g/dL 6.4-8.2 [facility] Sodium [Moles/Vol] 137 mmol/L 136-145 [facility] Triglyceride [Mass/Vol] 94 mg/dL <199 [facility] Comment on above: The drugs N-Acetylcy steine and Metamizole may falsely depress this assay.Serum Triglycerides Reference Interval Normal <150 mg/dL Borderline high 150 - 199 mg/dL High 200 - 499 mg/dL Very High > or = 500 mg/dL Laboratory - Chemistry and C hemistry - challengeOrdered By: Kike Mccoy on 12-15-2023 Albumin/Globulin [Mass ratio] 1.3 {ratio} 0.9-2.4 [facility] ALP [Catalytic activity/Vol] 49 U/L 45-117 [facility] ALT [Catalytic activity/Vol] 34 U/L 16-61 [facility] Cholesterol in HDL [Mass/Vol] 49 mg/dL >40 [facility] Comment on above: The drugs N-Acetylcy steine and Metamizole may falsely depress this assay. Reference Range HDL <40 mg/dL Low HDL Cholesterol HDL >or= 60 mg/dL High HDL Cholesterol Cholesterol in LDL [Mass/Vol] 75 mg/dL 0-130 [facility] CO2 [Moles/Vol] 28.0 mmol/L 21.0-32.0 [facility] Globulin (S) [Mass/Vol] 3.1 g/dL 2.2-4.2 [facility] Urea nitrogen/Creatinine [Mass ratio] 19.1 mg/mg 10-20 [facility] No Panel InformationOrdered By: Kike Mccoy on 12-15-2023 Urine Microalbumin/Creatini ne Ratio 6.8 mg/g CRE <30 [facility] Estimated GFR (MDRD) Amer 113 mL/min >60 [facility] Comment on above: GFR Calc Estimated GFR (MDRD) Non-Af Amer 94 mL/min >60 [facility] Comment on above: Non- GFR Calc VLDL Cholesterol 19 mg/dL 5-40 [facility] Serum or plasma calcium jack urement (mass/volume)Ordered By: Kike Mccoy on 12-15-2023 Calcium [Mass/Vol] 9.1 mg/dL 8.5-10.1 [facility] Serum or plasma creatinine m easurement (mass/volume)Ordered By: Kike Mccoy on 12-15-2023 Creatinine [Mass/Vol] 0.89 mg/dL 0.70-1.30 [facility] Comment on above: The validity of the calculated GFR & GFRAA in patients over 70 years has not been determined. Clinical correlation is essential. Serum or plasma thyroid stim ulating hormone (TSH) measurement (units/volume)Ordered By: Kike Mccoy on 12-15-2023 TSH Qn 1.62 uIU/mL 0.358-3.74 [facility] Serum or plasma urea nitroge n measurement (mass/volume)Ordered By: Kike Mccoy on 12-15-2023 Urea nitrogen [Mass/Vol] 17 mg/dL 7-18 [facility] Thin prep Papanicolaou smear with manual screeningOrdered By: Kike Mccoy on 12-15-2023 Thin prep Papanicolaou smear with manual screening 20.1 mg/L NO RANGE EST. [facility] Thin prep Papanicolaou smear with manual screening 4.1 g/dL 3.2-5.0 [facility] Thin prep Papanicolaou smear with manual screening 16 U/L 15-37 [facility] Thin prep Papanicolaou smear with manual screening 4 5-15 [facility] Urine creatinine measurement (mass/volume)Ordered By: Kike Mccoy on 12-15-2023 Creatinine (U) [Mass/Vol] 297.00 mg/dL NO RANGE EST. [facility] Whole blood hemoglobin A1c/t otal hemoglobin ratio (mass fraction)Ordered By: Kike Mccoy on 12-15-2023 HbA1c (Bld) [Mass fraction] 7.0 % 3.8-5.6 [facility] Comment on above: Normal < 5.7 % Predi abetic 5.7 - 6.4 % Diabetic >or= 6.5 % Please note range changes. Whole blood hemoglobin A1c/t otal hemoglobin ratio (mass fraction)Ordered By: Kike Mccoy on 04-13-2023 HbA1c (Bld) [Mass fraction] 6.8 % 3.8-5.6 [facility] Comment on above: Normal < 5.7 % Predi abetic 5.7 - 6.4 % Diabetic >or= 6.5 % Please note range changes. Absolute lymphocyte counton 10-24-2022 Lymphocytes Auto (Unsp spec) [#/Vol] 2.30 10*3/uL 0.83-4.51 [facility] Work Phone: Basophil percentageon 2021 Basophils/100 WBC (Bld) 0.6 % 0-1 [facility] Work Phone: Chloride [Moles/Vol] 105 mmol/L 98-107 [facility] Work Phone: Eosinophils/100 WBC (Bld) 7.0 % 0-5 [facility] Work Phone: Glucose [Mass/Vol] 157 mg/dL 74-106 [facility] Work Phone: Comment on above: Fasting Glucose resu lt greater than or equal to 126 mg/dL suggests DIABETES MELLITUS per A.D.A. criteria. Neutrophils (Bld) [#/Vol] 3.4 10*3/uL 2.0-7.7 [facility] Work Phone: Neutrophils/100 WBC (Bld) 50.2 % 47-70 [facility] Work Phone: Potassium [Moles/Vol] 3.9 mmol/L 3.5-5.1 [facility] Work Phone: Sodium [Moles/Vol] 139 mmol/L 136-145 [facility] Work Phone: WBC (Bld) [#/Vol] 6.8 10*3/uL 4.4-11.0 [facility] Work Phone: Blood erythrocytes count (nu mber/volume)on 10-24-2022 RBC (Bld) [#/Vol] 4.66 10*6/uL 4.6-6.2 [facility] Work Phone: Blood hemoglobin measurement (mass/volume)on 10-24-2022 Hemoglobin (Bld) [Mass/Vol] 14.3 g/dL 13.0-16.5 [facility] Work Phone: Blood lymphocytes/100 leukoc yteson 10-24-2022 Lymphocytes/100 WBC (Bld) 33.7 % 19-41 [facility] Work Phone: Blood monocytes/100 leukocyt eson 10-24-2022 Monocytes/100 WBC (Bld) 8.2 % 0-10 [facility] Work Phone: Blood platelet mean volumeon 10-24-2022 Platelet mean volume (Bld) [Entitic vol] 8.9 fL 6.2-12.0 [facility] Work Phone: Determination of erythrocyte mean corpuscular volume (MCV)on 10-24-2022 MCV (RBC) [Entitic vol] 90.1 fL 80-94 [facility] Work Phone: Hematocrit Auto (Bld) [Volum e fraction]on 10-24-2022 Hematocrit (Bld) [Volume fraction] 42.0 % 40-54 [facility] Work Phone: Laboratory - Chemistry and C hemistry - challengeon 10-24-2022 CO2 [Moles/Vol] 28.0 mmol/L 21.0-32.0 [facility] Work Phone: Magnesium [Mass/Vol] 2.2 mg/dL 1.6-2.6 [facility] Work Phone: Urea nitrogen/Creatinine [Mass ratio] 23.8 mg/mg 10-20 [facility] Work Phone: Laboratory - Hematology and Cell countson 10-24-2022 Erythrocyte distribution width (RBC) [Entitic vol] 42.5 fL 35.1-43.9 [facility] Work Phone: Erythrocyte distribution width (RBC) [Ratio] 12.9 % 11.6-14.6 [facility] Work Phone: Immature granulocytes/100 WBC (Bld) 0.300 % 0.0-0.9 [facility] Work Phone: Comment on above: IG% - Immature Granu locytes (promyelocytes, myelocytes and metamyelocytes) > 1% indicates that a LEFT SHIFT is Present. MCH (RBC) [Entitic mass] 30.7 pg 27.0-32.0 [facility] Work Phone: Nucleated RBC/100 WBC (Bld) [Ratio] 0 % 0-5 [facility] Work Phone: MCHC Auto (RBC) [Mass/Vol]on 10-24-2022 MCHC (RBC) [Mass/Vol] 34.0 g/dL 32-36 [facility] Work Phone: No Panel Informationon 10-24 Estimated Creatinine Clearance Calc 96.63 ml/min [facility] Work Phone: Estimated GFR (MDRD) Amer 109 mL/min >60 [facility] Work Phone: Comment on above: GFR Calc Estimated GFR (MDRD) Non-Af Amer 90 mL/min >60 [facility] Work Phone: Comment on above: Non- GFR Calc Platelets bldon 10-24-2022 Platelets (Bld) [#/Vol] 324 10*3/uL 150-450 [facility] Work Phone: Serum or plasma calcium jack urement (mass/volume)on 10-24-2022 Calcium [Mass/Vol] 9.0 mg/dL 8.5-10.1 [facility] Work Phone: Serum or plasma creatinine m easurement (mass/volume)on 10-24-2022 Creatinine [Mass/Vol] 0.92 mg/dL 0.70-1.30 [facility] Work Phone: Comment on above: The validity of the calculated GFR & GFRAA in patients over 70 years has not been determined. Clinical correlation is essential. Serum or plasma urea nitroge n measurement (mass/volume)on 10-24-2022 Urea nitrogen [Mass/Vol] 22 mg/dL -18 [facility] Work Phone: Thin prep Papanicolaou smear with manual screeningon 10-24-2022 Thin prep Papanicolaou smear with manual screening 6 5-15 [facility] Work Phone: Basophil percentageon 2021 Bilirubin [Mass/Vol] 0.50 mg/dL 0.20-1.00 [facility] Work Phone: Comment on above: For patients on eltr ombopag therapy, use of Dimension [place] TBIL is not recommended. Protein [Mass/Vol] 6.7 g/dL 6.4-8.2 [facility] Work Phone: Glucose Glucometer (BldC) [M ass/Vol]on 10-23-2022 Glucose [Mass/Vol] 232 mg/dL 74-106 [facility] Work Phone: Comment on above: MANAGEMENT OF PATIEN T CARE PER NURSING PROTOCOL Laboratory - Chemistry and C hemistry - challengeon 10-23-2022 ALP [Catalytic activity/Vol] 53 U/L 45-117 [facility] Work Phone: ALT [Catalytic activity/Vol] 29 U/L 16-61 [facility] Work Phone: Globulin (S) [Mass/Vol] 3.3 g/dL 2.2-4.2 [facility] Work Phone: No Panel Informationon 10-23 Thyroid Stimulating Hormone (TSH) 1.67 uIU/mL 0.358-3.74 [facility] Work Phone: Troponin I High Sensitivity 30 pg/mL 3.0-78.0 [facility] Work Phone: Comment on above: Please Note: New July t Units and Gender Specific Reference Ranges. For more information see Policy Stat Procedure [place] High Sensitivity Troponin (TNIH) and attachments. Serum or plasma albumin jack urement (mass/volume)on 10-23-2022 Albumin [Mass/Vol] 3.4 g/dL 3.2-5.0 [facility] Work Phone: Serum or plasma albumin/glob ulin mass ratioon 10-23-2022 Albumin/Globulin [Mass ratio] 1.0 {ratio} 0.9-2.4 [facility] Work Phone: Thin prep Papanicolaou smear with manual screeningon 10-23-2022 Thin prep Papanicolaou smear with manual screening 11 U/L 15-37 [facility] Work Phone: Absolute lymphocyte counton 10-22-2022 Lymphocytes Auto (Unsp spec) [#/Vol] 2.50 10*3/uL 0.83-4.51 [facility] Work Phone: Basophil percentageon 2021 Basophils/100 WBC (Bld) 0.9 % 0-1 [facility] Work Phone: Chloride [Moles/Vol] 103 mmol/L 98-107 [facility] Work Phone: Eosinophils/100 WBC (Bld) 6.3 % 0-5 [facility] Work Phone: Glucose [Mass/Vol] 317 mg/dL 74-106 [facility] Work Phone: Comment on above: Glucose result great er than or equal to 200 mg/dLsuggests DIABETES MELLITUS per A.D.A. criteria. Neutrophils (Bld) [#/Vol] 3.1 10*3/uL 2.0-7.7 [facility] Work Phone: Neutrophils/100 WBC (Bld) 45.7 % 47-70 [facility] Work Phone: Potassium [Moles/Vol] 3.8 mmol/L 3.5-5.1 [facility] Work Phone: Comment on above: Moderate Hemolysis, Result may be falsely increased. Sodium [Moles/Vol] 137 mmol/L 136-145 [facility] Work Phone: WBC (Bld) [#/Vol] 6.8 10*3/uL 4.4-11.0 [facility] Work Phone: Blood erythrocytes count (nu mber/volume)on 10-22-2022 RBC (Bld) [#/Vol] 4.84 10*6/uL 4.6-6.2 [facility] Work Phone: Blood hemoglobin measurement (mass/volume)on 10-22-2022 Hemoglobin (Bld) [Mass/Vol] 15.3 g/dL 13.0-16.5 [facility] Work Phone: Blood lymphocytes/100 leukoc yteson 10-22-2022 Lymphocytes/100 WBC (Bld) 36.7 % 19-41 [facility] Work Phone: Blood monocytes/100 leukocyt eson 10-22-2022 Monocytes/100 WBC (Bld) 10.3 % 0-10 [facility] Work Phone: Blood platelet mean volumeon 10-22-2022 Platelet mean volume (Bld) [Entitic vol] 8.8 fL 6.2-12.0 [facility] Work Phone: Determination of erythrocyte mean corpuscular volume (MCV)on 10-22-2022 MCV (RBC) [Entitic vol] 89.5 fL 80-94 [facility] Work Phone: Hematocrit Auto (Bld) [Volum e fraction]on 10-22-2022 Hematocrit (Bld) [Volume fraction] 43.3 % 40-54 [facility] Work Phone: INR in Blood by Coagulation assayon 10-22-2022 INR Coag (Bld) [Relative time] 1.0 {INR} [facility] Work Phone: Laboratory - Chemistry and C hemistry - challengeon 10-22-2022 CO2 [Moles/Vol] 28.0 mmol/L 21.0-32.0 [facility] Work Phone: Urea nitrogen/Creatinine [Mass ratio] 21.7 mg/mg 10-20 [facility] Work Phone: Laboratory - Coagulationon 1 12-23-2021 aPTT Coag (Bld) [Time] 25.3 s 24.1-36.2 [facility] Work Phone: PT Coag (PPP) [Time] 12.7 s 11.7-14.9 [facility] Work Phone: Laboratory - Hematology and Cell countson 10-22-2022 Erythrocyte distribution width (RBC) [Entitic vol] 41.9 fL 35.1-43.9 [facility] Work Phone: Erythrocyte distribution width (RBC) [Ratio] 12.8 % 11.6-14.6 [facility] Work Phone: Immature granulocytes/100 WBC (Bld) 0.100 % 0.0-0.9 [facility] Work Phone: Comment on above: IG% - Immature Granu locytes (promyelocytes, myelocytes and metamyelocytes) > 1% indicates that a LEFT SHIFT is Present. MCH (RBC) [Entitic mass] 31.6 pg 27.0-32.0 [facility] Work Phone: Nucleated RBC/100 WBC (Bld) [Ratio] 0 % 0-5 [facility] Work Phone: MCHC Auto (RBC) [Mass/Vol]on 10-22-2022 MCHC (RBC) [Mass/Vol] 35.3 g/dL 32-36 [facility] Work Phone: No Panel Informationon 10-22 Estimated Creatinine Clearance Calc 83.86 ml/min [facility] Work Phone: Estimated GFR (MDRD) Amer 93 mL/min >60 [facility] Work Phone: Comment on above: GFR Calc Estimated GFR (MDRD) Non-Af Amer 77 mL/min >60 [facility] Work Phone: Comment on above: Non- GFR Calc Thyroid Stimulating Hormone (TSH) 2.12 uIU/mL 0.358-3.74 [facility] Work Phone: Platelets bldon 10-22-2022 Platelets (Bld) [#/Vol] 307 10*3/uL 150-450 [facility] Work Phone: Serum or plasma calcium jack urement (mass/volume)on 10-22-2022 Calcium [Mass/Vol] 9.4 mg/dL 8.5-10.1 [facility] Work Phone: Serum or plasma creatinine m easurement (mass/volume)on 10-22-2022 Creatinine [Mass/Vol] 1.06 mg/dL 0.70-1.30 [facility] Work Phone: Comment on above: The validity of the calculated GFR & GFRAA in patients over 70 years has not been determined. Clinical correlation is essential. Serum or plasma urea nitroge n measurement (mass/volume)on 10-22-2022 Urea nitrogen [Mass/Vol] 23 mg/dL 7-18 [facility] Work Phone: Thin prep Papanicolaou smear with manual screeningon 10-22-2022 Thin prep Papanicolaou smear with manual screening 6 5-15 [facility] Work Phone: Absolute lymphocyte counton 08-05-2022 Lymphocytes Auto (Unsp spec) [#/Vol] 1.39 10*3/uL 0.83-4.51 [facility] Work Phone: Absolute reticulocyte counto n 08-05-2022 Reticulocytes (Bld) [#/Vol] 0.00 10*3/uL 0-5 [facility] Work Phone: Basophil percentageon 2021 Basophil percentage 3.2 mg/dL 2.5-4.9 [facility] Work Phone: Bilirubin [Mass/Vol] 0.60 mg/dL 0.20-1.00 [facility] Work Phone: Comment on above: For patients on eltr ombopag therapy, use of Dimension [place] TBIL is not recommended. Chloride [Moles/Vol] 109 mmol/L 98-107 [facility] Work Phone: Cholesterol [Mass/Vol] 120 mg/dL <200 [facility] Work Phone: Comment on above: <200 mg/dL Desirable 200-240 mg/dL Borderline >240 mg/dL High Risk Glucose [Mass/Vol] 137 mg/dL 74-106 [facility] Work Phone: Comment on above: Fasting Glucose resu lt greater than or equal to 126 mg/dL suggests DIABETES MELLITUS per A.D.A. criteria. Neutrophils (Bld) [#/Vol] 2.4 10*3/uL 2.0-7.7 [facility] Work Phone: Potassium [Moles/Vol] 4.1 mmol/L 3.5-5.1 [facility] Work Phone: Protein [Mass/Vol] 6.8 g/dL 6.4-8.2 [facility] Work Phone: Sodium [Moles/Vol] 143 mmol/L 136-145 [facility] Work Phone: Triglyceride [Mass/Vol] 75 mg/dL <199 [facility] Work Phone: Comment on above: The drugs N-Acetylcy steine and Metamizole may falsely depress this assay.Serum Triglycerides Reference Interval Normal <150 mg/dL Borderline high 150 - 199 mg/dL High 200 - 499 mg/dL Very High > or = 500 mg/dL WBC (Bld) [#/Vol] 4.7 10*3/uL 4.4-11.0 [facility] Work Phone: Blood erythrocytes count (nu mber/volume)on 08-05-2022 RBC (Bld) [#/Vol] 4.32 10*6/uL 4.6-6.2 [facility] Work Phone: Blood hemoglobin measurement (mass/volume)on 08-05-2022 Hemoglobin (Bld) [Mass/Vol] 13.3 g/dL 13.0-16.5 [facility] Work Phone: Blood platelet mean volumeon 08-05-2022 Platelet mean volume (Bld) [Entitic vol] 9.2 fL 6.2-12.0 [facility] Work Phone: Determination of erythrocyte mean corpuscular volume (MCV)on 08-05-2022 MCV (RBC) [Entitic vol] 89.1 fL 80-94 [facility] Work Phone: Direct bilirubinon 2 Bilirubin.direct [Mass/Vol] 0.20 mg/dL 0.00-0.30 [facility] Work Phone: Hematocrit Auto (Bld) [Volum e fraction]on 08-05-2022 Hematocrit (Bld) [Volume fraction] 38.5 % 40-54 [facility] Work Phone: Laboratory - Chemistry and C hemistry - challengeon 08-05-2022 ALP [Catalytic activity/Vol] 44 U/L 45-117 [facility] Work Phone: ALT [Catalytic activity/Vol] 28 U/L 16-61 [facility] Work Phone: Cholesterol.total/Cho lesterol in HDL [Mass ratio] 2.60 {ratio} [facility] Work Phone: CO2 [Moles/Vol] 27.0 mmol/L 21.0-32.0 [facility] Work Phone: Globulin (S) [Mass/Vol] 3.1 g/dL 2.2-4.2 [facility] Work Phone: Urea nitrogen/Creatinine [Mass ratio] 27.2 mg/mg 10-20 [facility] Work Phone: Laboratory - Hematology and Cell countson 08-05-2022 Erythrocyte distribution width (RBC) [Entitic vol] 42.0 fL 35.1-43.9 [facility] Work Phone: Erythrocyte distribution width (RBC) [Ratio] 12.8 % 11.6-14.6 [facility] Work Phone: MCH (RBC) [Entitic mass] 30.8 pg 27.0-32.0 [facility] Work Phone: Nucleated RBC/100 WBC (Bld) [Ratio] 0 % 0-5 [facility] Work Phone: MCHC Auto (RBC) [Mass/Vol]on 08-05-2022 MCHC (RBC) [Mass/Vol] 34.5 g/dL 32-36 [facility] Work Phone: No Panel Informationon 08-05 Prostate Specific Antigen Screen 0.35 ng/mL 0.00-4.00 [facility] Work Phone: Comment on above: This test was perfor med using the TPSA assay method for [employer] chemistry system. Values obtained with differentassay methods cannot be used interchangably.When changing PSA assays in the course of monitoring apatient, additional sequential testing should be carriedout to confirm baseline values. Thyroid Stimulating Hormone (TSH) 1.26 uIU/mL 0.358-3.74 [facility] Work Phone: Vitamin D 25-Hydroxy 26.1 ng/mL [facility] Work Phone: Comment on above: Vitamin D 25(OH) Sta tus Range Deficiency <20 ng/mL (50nmol/L) Insufficiency 20 - 30 ng/mL (50 - 75 nmol/L) Sufficiency 30 - 100 ng/mL (75 - 250 nmol/L) Toxicity >100 ng/mL (>250 nmol/L) Estimated GFR (MDRD) Amer 121 mL/min >60 [facility] Work Phone: Comment on above: GFR Calc Estimated GFR (MDRD) Non-Af Amer 100 mL/min >60 [facility] Work Phone: Comment on above: Non- GFR Calc Platelets bldon 08-05-2022 Platelets (Bld) [#/Vol] 261 10*3/uL 150-450 [facility] Work Phone: Segmented neutrophils/100 WB C Auto (Bld)on 08-05-2022 Segmented neutrophils/100 WBC (Bld) 51.2 % 47-70 [facility] Work Phone: Serum or plasma albumin jack urement (mass/volume)on 08-05-2022 Albumin [Mass/Vol] 3.7 g/dL 3.2-5.0 [facility] Work Phone: Serum or plasma albumin/glob ulin mass ratioon 08-05-2022 Albumin/Globulin [Mass ratio] 1.2 {ratio} 0.9-2.4 [facility] Work Phone: Serum or plasma calcium jack urement (mass/volume)on 08-05-2022 Calcium [Mass/Vol] 9.0 mg/dL 8.5-10.1 [facility] Work Phone: Serum or plasma cholesterol in HDL measurement (mass/volume)on 08-05-2022 Cholesterol in HDL [Mass/Vol] 47 mg/dL >40 [facility] Work Phone: Comment on above: The drugs N-Acetylcy steine and Metamizole may falsely depress this assay. Reference Range HDL <40 mg/dL Low HDL Cholesterol HDL >or= 60 mg/dL High HDL Cholesterol Serum or plasma cholesterol in VLDL measurement (mass/volume)on 08-05-2022 Cholesterol in VLDL [Mass/Vol] 15 mg/dL 5-40 [facility] Work Phone: Serum or plasma creatinine m easurement (mass/volume)on 08-05-2022 Creatinine [Mass/Vol] 0.85 mg/dL 0.70-1.30 [facility] Work Phone: Comment on above: The validity of the calculated GFR & GFRAA in patients over 70 years has not been determined. Clinical correlation is essential. Serum or plasma low density lipoprotein (LDL) cholesterol measurement (mass/volume)on 08-05-2022 Cholesterol in LDL [Mass/Vol] 58 mg/dL 0-130 [facility] Work Phone: Serum or plasma urea nitroge n measurement (mass/volume)on 08-05-2022 Urea nitrogen [Mass/Vol] 23 mg/dL 7-18 [facility] Work Phone: Serum or plasma uric acid me asurement (mass/volume)on 08-05-2022 Urate [Mass/Vol] 4.8 mg/dL 3.5-7.2 [facility] Work Phone: Comment on above: The drugs N-Acetylcy steine and Metamizole may falsely depress this assay. Thin prep Papanicolaou smear with manual screeningon 08-05-2022 Thin prep Papanicolaou smear with manual screening 11 U/L 15-37 [facility] Work Phone: Thin prep Papanicolaou smear with manual screening 7 5-15 [facility] Work Phone: Thin prep Papanicolaou smear with manual screening 166 U/L 87-241 [facility] Work Phone: Whole blood hemoglobin A1c/t otal hemoglobin ratio (mass fraction)on 08-05-2022 HbA1c (Bld) [Mass fraction] 6.7 % 3.8-5.6 [facility] Work Phone: Comment on above: Normal < 5.7 % Predi abetic 5.7 - 6.4 % Diabetic >or= 6.5 % Please note range changes. Basophil percentageon 2021 Bilirubin [Mass/Vol] 0.50 mg/dL 0.20-1.00 [facility] Work Phone: Comment on above: For patients on eltr ombopag therapy, use of Dimension [place] TBIL is not recommended. Chloride [Moles/Vol] 103 mmol/L 98-107 [facility] Work Phone: Cholesterol [Mass/Vol] 126 mg/dL <200 [facility] Work Phone: Comment on above: <200 mg/dL Desirable 200-240 mg/dL Borderline >240 mg/dL High Risk Glucose [Mass/Vol] 136 mg/dL 74-106 [facility] Work Phone: Comment on above: Fasting Glucose resu lt greater than or equal to 126 mg/dL suggests DIABETES MELLITUS per A.D.A. criteria. Potassium [Moles/Vol] 4.2 mmol/L 3.5-5.1 [facility] Work Phone: Protein [Mass/Vol] 7.1 g/dL 6.4-8.2 [facility] Work Phone: Sodium [Moles/Vol] 140 mmol/L 136-145 [facility] Work Phone: Triglyceride [Mass/Vol] 130 mg/dL [facility] Work Phone: Comment on above: The drugs N-Acetylcy steine and Metamizole may falsely depress this assay.Serum Triglycerides Reference Interval Normal <150 mg/dL Borderline high 150 - 199 mg/dL High 200 - 499 mg/dL Very High > or = 500 mg/dL Laboratory - Chemistry and C hemistry - challengeon 03-03-2022 ALP [Catalytic activity/Vol] 47 U/L 45-117 [facility] Work Phone: ALT [Catalytic activity/Vol] 32 U/L 16-61 [facility] Work Phone: CO2 [Moles/Vol] 30.0 mmol/L 21.0-32.0 [facility] Work Phone: Globulin (S) [Mass/Vol] 3.0 g/dL 2.2-4.2 [facility] Work Phone: Magnesium [Mass/Vol] 2.0 mg/dL 1.6-2.6 [facility] Work Phone: Urea nitrogen/Creatinine [Mass ratio] 21.1 mg/mg 10-20 [facility] Work Phone: No Panel Informationon 03-03 Estimated GFR (MDRD) Amer 100 mL/min >60 [facility] Work Phone: Comment on above: GFR Calc Estimated GFR (MDRD) Non-Af Amer 83 mL/min >60 [facility] Work Phone: Comment on above: Non- GFR Calc Serum or plasma albumin jack urement (mass/volume)on 03-03-2022 Albumin [Mass/Vol] 4.1 g/dL 3.2-5.0 [facility] Work Phone: Serum or plasma albumin/glob ulin mass ratioon 03-03-2022 Albumin/Globulin [Mass ratio] 1.4 {ratio} 0.9-2.4 [facility] Work Phone: Serum or plasma calcium jack urement (mass/volume)on 03-03-2022 Calcium [Mass/Vol] 8.8 mg/dL 8.5-10.1 [facility] Work Phone: Serum or plasma cholesterol in HDL measurement (mass/volume)on 03-03-2022 Cholesterol in HDL [Mass/Vol] 40 mg/dL [facility] Work Phone: Comment on above: The drugs N-Acetylcy steine and Metamizole may falsely depress this assay. Reference Range HDL <40 mg/dL Low HDL Cholesterol HDL >or= 60 mg/dL High HDL Cholesterol Serum or plasma cholesterol in VLDL measurement (mass/volume)on 03-03-2022 Cholesterol in VLDL [Mass/Vol] 26 mg/dL 5-40 [facility] Work Phone: Serum or plasma creatinine m easurement (mass/volume)on 03-03-2022 Creatinine [Mass/Vol] 1.00 mg/dL 0.70-1.30 [facility] Work Phone: Comment on above: The validity of the calculated GFR & GFRAA in patients over 70 years has not been determined. Clinical correlation is essential. Serum or plasma low density lipoprotein (LDL) cholesterol measurement (mass/volume)on 03-03-2022 Cholesterol in LDL [Mass/Vol] 60 mg/dL 0-130 [facility] Work Phone: Serum or plasma urea nitroge n measurement (mass/volume)on 03-03-2022 Urea nitrogen [Mass/Vol] 21 mg/dL 7-18 [facility] Work Phone: Thin prep Papanicolaou smear with manual screeningon 03-03-2022 Thin prep Papanicolaou smear with manual screening 16 U/L 15-37 [facility] Work Phone: Thin prep Papanicolaou smear with manual screening 7 5-15 [facility] Work Phone: Whole blood hemoglobin A1c/t otal hemoglobin ratio (mass fraction)on 03-03-2022 HbA1c (Bld) [Mass fraction] 6.0 % 3.8-5.6 [facility] Work Phone: Comment on above: Normal < 5.7 % Predi abetic 5.7 - 6.4 % Diabetic >or= 6.5 % Please note range changes. Basophil percentageon 2021 Bilirubin [Mass/Vol] 0.80 mg/dL 0.20-1.00 [facility] Work Phone: Comment on above: For patients on eltr ombopag therapy, use of Dimension [place] TBIL is not recommended. Chloride [Moles/Vol] 102 mmol/L 98-107 [facility] Work Phone: Cholesterol [Mass/Vol] 130 mg/dL <200 [facility] Work Phone: Comment on above: <200 mg/dL Desirable 200-240 mg/dL Borderline >240 mg/dL High Risk Glucose [Mass/Vol] 154 mg/dL 74-106 [facility] Work Phone: Comment on above: Fasting Glucose resu lt greater than or equal to 126 mg/dL suggests DIABETES MELLITUS per A.D.A. criteria. Potassium [Moles/Vol] 3.9 mmol/L 3.5-5.1 [facility] Work Phone: Protein [Mass/Vol] 7.1 g/dL 6.4-8.2 [facility] Work Phone: Sodium [Moles/Vol] 137 mmol/L 136-145 [facility] Work Phone: Triglyceride [Mass/Vol] 211 mg/dL [facility] Work Phone: Comment on above: The drugs N-Acetylcy steine and Metamizole may falsely depress this assay.Serum Triglycerides Reference Interval Normal <150 mg/dL Borderline high 150 - 199 mg/dL High 200 - 499 mg/dL Very High > or = 500 mg/dL Laboratory - Chemistry and C hemistry - challengeon 12-03-2021 ALP [Catalytic activity/Vol] 55 U/L 45-117 [facility] Work Phone: ALT [Catalytic activity/Vol] 32 U/L 16-61 [facility] Work Phone: CO2 [Moles/Vol] 30.0 mmol/L 21.0-32.0 [facility] Work Phone: Globulin (S) [Mass/Vol] 3.3 g/dL 2.2-4.2 [facility] Work Phone: Magnesium [Mass/Vol] 1.9 mg/dL 1.6-2.6 [facility] Work Phone: Urea nitrogen/Creatinine [Mass ratio] 14.5 mg/mg 10-20 [facility] Work Phone: No Panel Informationon 12-03 Estimated GFR (MDRD) Amer 113 mL/min >60 [facility] Work Phone: Comment on above: GFR Calc Estimated GFR (MDRD) Non-Af Amer 94 mL/min >60 [facility] Work Phone: Comment on above: Non- GFR Calc Serum or plasma albumin jack urement (mass/volume)on 12-03-2021 Albumin [Mass/Vol] 3.8 g/dL 3.2-5.0 [facility] Work Phone: Serum or plasma albumin/glob ulin mass ratioon 12-03-2021 Albumin/Globulin [Mass ratio] 1.2 {ratio} 0.9-2.4 [facility] Work Phone: Serum or plasma calcium jack urement (mass/volume)on 12-03-2021 Calcium [Mass/Vol] 8.7 mg/dL 8.5-10.1 [facility] Work Phone: Serum or plasma cholesterol in HDL measurement (mass/volume)on 12-03-2021 Cholesterol in HDL [Mass/Vol] 41 mg/dL [facility] Work Phone: Comment on above: The drugs N-Acetylcy steine and Metamizole may falsely depress this assay. Reference Range HDL <40 mg/dL Low HDL Cholesterol HDL >or= 60 mg/dL High HDL Cholesterol Serum or plasma cholesterol in VLDL measurement (mass/volume)on 12-03-2021 Cholesterol in VLDL [Mass/Vol] 42 mg/dL 5-40 [facility] Work Phone: Serum or plasma creatinine m easurement (mass/volume)on 12-03-2021 Creatinine [Mass/Vol] 0.90 mg/dL 0.70-1.30 [facility] Work Phone: Comment on above: The validity of the calculated GFR & GFRAA in patients over 70 years has not been determined. Clinical correlation is essential. Serum or plasma low density lipoprotein (LDL) cholesterol measurement (mass/volume)on 12-03-2021 Cholesterol in LDL [Mass/Vol] 47 mg/dL 0-130 [facility] Work Phone: Serum or plasma urea nitroge n measurement (mass/volume)on 12-03-2021 Urea nitrogen [Mass/Vol] 13 mg/dL 7-18 [facility] Work Phone: Thin prep Papanicolaou smear with manual screeningon 12-03-2021 Thin prep Papanicolaou smear with manual screening 16 U/L 15-37 [facility] Work Phone: Thin prep Papanicolaou smear with manual screening 5 5-15 [facility] Work Phone: Whole blood hemoglobin A1c/t otal hemoglobin ratio (mass fraction)on 12-03-2021 HbA1c (Bld) [Mass fraction] 7.6 % 3.8-5.6 [facility] Work Phone: Comment on above: Normal < 5.7 % Predi abetic 5.7 - 6.4 % Diabetic >or= 6.5 % Please note range changes. Laboratory - Microbiology an d Antimicrobial susceptibilityon 11-11-2021 SARS-CoV-2 (COVID-19) RNA TY+probe Ql (Unsp spec) Not detected Not Detect [facility] Work Phone: Comment on above: Normal Reference Ran ge: Not DetectedMethod:(RT-PCR) real-time reverse transcriptase PCRLuminex MARVA Instrument*The Food and Drug Administration (FDA) has issued an Emergency Use Authorization (EAU) for the Verimed SARS-CoV-2 Assay for the rapid detection of the virus that causes COVID-19. This test has been validated, but the FDAs independent review of this validation is pending.*Negative results do not preclude infection and should not be used as the sole basis for treatment or patient management. Optimum specimen types and timing for peak viral levels during infections caused by SARS-CoV-2 have not been determined. Collection of multiple specimens from the same patient may be necessary to detect the virus. The possibility of a false negative result should be considered if the patient has clinical presentation or has had recent exposure. Office Visiton 05-06-2017 Documentation of current medications (procedure) Done Invalid Interpretation Code [facility] Work Phone: Protein mass conc Done [facility] Work Phone: Tobacco smoking status NHIS Never smoker [facility] Work Phone: Tobacco use [facility] Never smoker Invalid Interpretation Code [facility] Work Phone: Office Visit: GILBERT: Yanira [email or web address] 04-18-2017 Documentation of current medications (procedure) Done Invalid Interpretation Code [facility] Work Phone: Fall risk assessment No Invalid Interpretation Code [facility] Work Phone: Tobacco use [facility] Never smoker Invalid Interpretation Code [facility] Work Phone: Vital Signs Date Time Vital Sign Value Performing Clinician Matt ann 06-12-2025 15:32-0400 Body height 177.[address] Zach Perry MD Work Phone: [facility] 06-12-2025 15:32-0400 Body mass index (BMI) [Ratio] 33.9 kg/m2 Dr. Zach Perry MD Work Phone: [facility] 06-12-2025 15:32-0400 Body weight 107.[address] Zach Perry MD Work Phone: [facility] 04-16-2025 15:21-0400 Body height 177.[address] Zach Perry MD Work Phone: [facility] 04-16-2025 15:21-0400 Body mass index (BMI) [Ratio] 34.7 kg/m2 Dr. Zach Perry MD Work Phone: [facility] 04-16-2025 15:21-0400 Body weight 109.[address] Zach Perry MD Work Phone: [facility] 04-16-2025 15:21-0400 Diastolic blood pressure 83 mm[Hg] Dr. Zach Perry MD Work Phone: [facility] 04-16-2025 15:21-0400 Heart rate 85 /min Dr. Zach Perry MD Work Phone: [facility] 04-16-2025 15:21-0400 SaO2% (BldA) [Mass fraction] 93 % Dr. Zach Perry MD Work Phone: [facility] 04-16-2025 15:21-0400 Systolic blood pressure 144 mm[Hg] Dr. Zach Perry MD Work Phone: [facility] 08-15-2024 16:40-0400 Body mass index (BMI) [Ratio] 35.35 kg/m2 Charu Podlogar [employer] SEASONER OPERATOR.SHAKE OUT WORKER Work Phone: [facility] 08-15-2024 16:40-0400 Body weight 109.5 kg Charu Podlogar PLASTICS SEASONER OPERATOR.SHAKE OUT WORKER Work Phone: [facility] 08-15-2024 16:40-0400 Diastolic blood pressure 84 mm[Hg] Charu Podlogar PLASTICS SEASONER OPERATOR.SHAKE OUT WORKER Work Phone: [facility] 08-15-2024 16:40-0400 Heart rate 81 /min Charu Podlogar PLASTICS SEASONER OPERATOR.SHA[employer] OUT WORKER Work Phone: [facility] 08-15-2024 16:40-0400 Respiratory rate 18 /min Charu Podlogar PLASTICS SEASONER OPERATOR.SHAKE OUT WORKER Work Phone: [facility] 08-15-2024 16:40-0400 SaO2% (BldA) [Mass fraction] 94 % Charu Podlogar PLASTICS SEASONER OPERATOR.SHAKE OUT WORKER Work Phone: [facility] 10-09-2024 16:40-0400 Systolic blood pressure 132 mm[Hg] Charu Pérez APRN.SHAKE OUT WORKER Work Phone: [facility] 08-15-2023 14:40-0400 Body weight 112.31 kg Jeff Perry MD Work Phone: [facility] 08-15-2023 14:40-0400 Diastolic blood pressure 72 mm[Hg] Jeff Perry MD Work Phone: [facility] 08-15-2023 14:40-0400 Heart rate 93 /min Jeff Perry MD Work Phone: [facility] 08-15-2023 14:40-0400 Respiratory rate 16 /min Jeff Perry MD Work Phone: [facility] 08-15-2023 14:40-0400 SaO2% (BldA) [Mass fraction] 94 % Jeff Perry MD Work Phone: [facility] 08-15-2023 14:40-0400 Systolic blood pressure 120 mm[Hg] Jeff Perry MD Work Phone: [facility] 05-25-2023 15:38-0400 Body height 180.[address] Zach Perry Work Phone: [facility] 05-25-2023 15:38-0400 Body mass index (BMI) [Ratio] 33.7 kg/m2 Dr. Zach Perry Work Phone: 8(768)155-502012 [place] [address] 05-25-2023 15:38-0400 Body weight 109.[address] Zach Perry Work Phone: 4(371)820-453212 [place] [address] 05-25-2023 15:38-0400 Diastolic blood pressure 73 mm[Hg] Dr. Zach Perry Work Phone: 2(280)241-976212 [place] [address] 05-25-2023 15:38-0400 Heart rate 75 /min Dr. Zach Perry Work Phone: 1(124)087-110112 [place] [address] 05-25-2023 15:38-0400 Respiratory rate 18 /min Dr. Zach Perry Work Phone: 2(532)937-465812 [place] [address] 05-25-2023 15:38-0400 SaO2% (BldA) [Mass fraction] 95 % Dr. Zach Perry Work Phone: 5(986)093-040805 [place] [address] 05-25-2023 15:38-0400 Systolic blood pressure 125 mm[Hg] Dr. Zach Perry Work Phone: 6(410)211-364205 [place] [address] 04-18-2023 14:07-0400 Body mass index (BMI) [Ratio] 34 kg/m2 Dr. Zach Perry Work Phone: 0(874)708-489705 [place] [address] 04-18-2023 14:07-0400 Body temperature 98.4 [degF] Dr. Zach Perry Work Phone: 9(869)639-212405 [place] [address] 04-18-2023 14:07-0400 Body weight 110.[address] Zach Perry Work Phone: 6(639)110-751405 [place] [address] 04-18-2023 14:07-0400 Diastolic blood pressure 76 mm[Hg] Dr. Zach Perry Work Phone: 0(913)449-078105 [place] [address] 04-18-2023 14:07-0400 Heart rate 78 /min Dr. Zach Perry Work Phone: 5(944)888-944305 [place] [address] 04-18-2023 14:07-0400 Respiratory rate 16 /min Dr. Zach Perry Work Phone: 0(996)943-736405 [place] [address] 04-18-2023 14:07-0400 SaO2% (BldA) [Mass fraction] 97 % Dr. Zach Perry Work Phone: 9(121)140-423405 [place] [address] 04-18-2023 14:07-0400 Systolic blood pressure 118 mm[Hg] Dr. Zach Perry Work Phone: 8(233)342-809205 [place] [address] 10-24-2022 12:25-0500 Diastolic blood pressure 87 mm[Hg] Dr. Zach Perry Work Phone: 8(424)813-829812 [place] [address] Work Phone: 10-24-2022 12:25-0500 Heart rate 56 /min Dr. Zach Perry Work Phone: [facility] Work Phone: 10-24-2022 12:25-0500 Respiratory rate 16 /min Dr. Zach Perry Work Phone: [facility] Work Phone: 10-24-2022 12:25-0500 SaO2% (BldA) [Mass fraction] 95 % Dr. Zach Perry Work Phone: [facility] Work Phone: 10-24-2022 12:25-0500 Systolic blood pressure 114 mm[Hg] Dr. Zach Perry Work Phone: [facility] Work Phone: 10-24-2022 09:00-0500 Body temperature 97.1 [degF] Dr. Zach Perry Work Phone: [facility] Work Phone: 10-23-2022 01:53-0500 Body height 180.[address] Zach Perry Work Phone: [facility] Work Phone: 10-23-2022 01:53-0500 Body mass index (BMI) [Ratio] 33.1 kg/m2 Dr. Zach Perry Work Phone: [facility] Work Phone: 10-23-2022 01:53-0500 Body weight 107.[address] Zach Perry Work Phone: [facility] Work Phone: 10-23-2022 01:33-0500 Body temperature 98.4 [degF] Dr. Zach Perry Work Phone: [facility] Work Phone: 10-23-2022 01:33-0500 Diastolic blood pressure 79 mm[Hg] Dr. Zach Perry Work Phone: [facility] Work Phone: 10-23-2022 01:33-0500 Heart rate 97 /min Dr. Zach Perry Work Phone: [facility] Work Phone: 10-23-2022 01:33-0500 Respiratory rate 15 /min Dr. Zach Perry Work Phone: [facility] Work Phone: 10-23-2022 01:33-0500 SaO2% (BldA) [Mass fraction] 94 % Dr. Zach Perry Work Phone: [facility] Work Phone: 10-23-2022 01:33-0500 Systolic blood pressure 157 mm[Hg] Dr. Zach Perry Work Phone: [facility] Work Phone: 10-22-2022 22:25-0500 Body height 180.[address] Zach Perry Work Phone: [facility] Work Phone: 10-22-2022 22:25-0500 Body mass index (BMI) [Ratio] 32.8 kg/m2 Dr. Zach Perry Work Phone: [facility] Work Phone: 10-22-2022 22:25-0500 Body weight 106.[address] Zach Perry Work Phone: [facility] Work Phone: 09-08-2022 08:00-0400 Body mass index (BMI) [Ratio] 33.3 kg/m2 Dr. Zach Perry Work Phone: [facility] Work Phone: 09-08-2022 08:00-0400 Body weight 108.[address] Zach Perry Work Phone: [facility] Work Phone: 09-08-2022 08:00-0400 Diastolic blood pressure 80 mm[Hg] Dr. Zach Perry Work Phone: [facility] Work Phone: 09-08-2022 08:00-0400 Heart rate 93 /min Dr. Zach Perry Work Phone: [facility] Work Phone: 09-08-2022 08:00-0400 Respiratory rate 18 /min Dr. Zach Perry Work Phone: [facility] Work Phone: 09-08-2022 08:00-0400 SaO2% (BldA) [Mass fraction] 95 % Dr. Zach Perry Work Phone: [facility] Work Phone: 09-08-2022 08:00-0400 Systolic blood pressure 153 mm[Hg] Dr. Zach Perry Work Phone: [facility] Work Phone: 08-11-2022 15:42-0400 Body weight 107.59 kg Charu Podlogar PLASTICS SEASONER OPERATOR.SHAKE OUT WORKER Work Phone: [facility] 08-11-2022 15:42-0400 Diastolic blood pressure 80 mm[Hg] Charu Podlogar PLASTICS SEASONER OPERATOR.SHAKE OUT WORKER Work Phone: [facility] 08-11-2022 15:42-0400 Heart rate 97 /min Charu Podlogar PLASTICS SEASONER OPERATOR.SHAKE OUT WORKER Work Phone: [facility] 08-11-2022 15:42-0400 Respiratory rate 16 /min Charu Podlogar PLASTICS SEASONER OPERATOR.SHAKE OUT WORKER Work Phone: [facility] 08-11-2022 15:42-0400 SaO2% (BldA) [Mass fraction] 96 % Charu Podlogar PLASTICS SEASONER OPERATOR.SHAKE OUT WORKER Work Phone: [facility] 08-11-2022 15:42-0400 Systolic blood pressure 134 mm[Hg] Charu Pérez APRN.CNP Work Phone: [facility] 04-12-2022 13:54-0400 Body height 180.[address] Zach Perry Work Phone: [facility] Work Phone: 04-12-2022 13:54-0400 Body mass index (BMI) [Ratio] 32.9 kg/m2 Dr. Zach Perry Work Phone: [facility] Work Phone: 04-12-2022 13:54-0400 Body temperature 96.7 [degF] Dr. Zach Perry Work Phone: [facility] Work Phone: 04-12-2022 13:54-0400 Body weight 107.[address] Zach Perry Work Phone: [facility] Work Phone: 04-12-2022 13:54-0400 Diastolic blood pressure 76 mm[Hg] Dr. Zach Perry Work Phone: [facility] Work Phone: 04-12-2022 13:54-0400 Heart rate 67 /min Dr. Zach Perry Work Phone: [facility] Work Phone: 04-12-2022 13:54-0400 Respiratory rate 14 /min Dr. Zach Perry Work Phone: [facility] Work Phone: 04-12-2022 13:54-0400 SaO2% (BldA) [Mass fraction] 96 % Dr. Zach Perry Work Phone: [facility] Work Phone: 04-12-2022 13:54-0400 Systolic blood pressure 130 mm[Hg] Dr. Zach Perry Work Phone: [facility] Work Phone: 02-17-2022 14:22-0400 Body height 180.[address] Zach Perry Work Phone: [facility] Work Phone: 02-17-2022 14:22-0400 Body mass index (BMI) [Ratio] 32.6 kg/m2 Dr. Zach Perry Work Phone: [facility] Work Phone: 02-17-2022 14:22-0400 Body weight 106.[address] Zach Perry Work Phone: [facility] Work Phone: 02-17-2022 14:22-0400 Diastolic blood pressure 77 mm[Hg] Dr. Zach Perry Work Phone: [facility] Work Phone: 02-17-2022 14:22-0400 Heart rate 74 /min Dr. Zach Perry Work Phone: [facility] Work Phone: 02-17-2022 14:22-0400 Respiratory rate 16 /min Dr. Zach Perry Work Phone: [facility] Work Phone: 02-17-2022 14:22-0400 SaO2% (BldA) [Mass fraction] 96 % Dr. Zach Perry Work Phone: [facility] Work Phone: 02-17-2022 14:22-0400 Systolic blood pressure 127 mm[Hg] Dr. Zach Perry Work Phone: [facility] Work Phone: 05-06-2017 13:22-0400 BMI (Body Mass Index) 32.77 kg/m2 [facility] Work Phone: 05-06-2017 13:22-0400 Weight 106.6 kg Ajay Acevedo [facility] Work Phone: 04-18-2017 13:47-0400 BMI (Body Mass Index) 33.8 kg/m2 Joselyn Finnegan LPN [facility] Work Phone: 04-18-2017 13:47-0400 Body Temperature 98.3 [degF] Joselyn Finnegan LPN [facility] billy Work Phone: 04-18-2017 13:47-0400 BP Diastolic 88 mm[Hg] Joselyn Finnegan LPN [facility] Work Phone: 04-18-2017 13:47-0400 BP Systolic 130 mm[Hg] Joselyn Finnegan LPN [facility] Work Phone: 04-18-2017 13:47-0400 Height 180.34 cm Joselyn Finnegan LPN [facility] Work Phone: 04-18-2017 13:47-0400 Pulse (Heart Rate) 82 /min Joselyn Finnegan LPN [facility] Work Phone: 04-18-2017 13:47-0400 Pulse Oximetry 98 % Joselyn Finnegan LPN [facility] Work Phone: 04-18-2017 13:47-0400 Respiratory Rate 12 /min Joselyn Finnegan LPN [facility] billy Work Phone: 04-18-2017 13:47-0400 Weight 109.95 kg Joeslyn Finnegan LPN [facility] Work Phone: Encounters Encounter Date Encounter Type Care Provider Facility Start: 06-12-2025 End: 06-12-2025 [facility] Jose Martini Facility:[facility] Start: 06-12-2025 End: 06-12-[address] Jose Martini DO -[facility] Work Phone: Start: 04-16-2025 End: 04-16-[address] Kike Mccoy MD -[facility] Work Phone: Start: 04-16-2025 End: 04-16-[address] Zach Perry MD Work Phone: [facility] Work Phone: Start: 12-21-2024 ambulatory Kike Mccoy Facility:[facility] Start: 12-19-2024 End: 12-19-[address] Jose Martini DO -[facility] Work Phone: Start: 12-19-2024 End: 12-19-2024 ambulatory Zach Perry Facility:[facility] Start: 12-12-2024 End: 12-12-2024 ambulatory Zach Perry Facility:[facility] Start: 12-05-2024 End: 12-05-2024 ambulatory Zach Perry Facility:[facility] Start: 11-08-2024 End: 11-08-2024 Telephone encounter Jeff Perry MD Work Phone: [facility] Comment on above: Results Start: 11-03-2024 End: 11-03-2024 ambulatory Zach Prery Facility:[facility] Start: 10-30-2024 End: 10-30-2024 Telephone encounter Jeff Perry MD Work Phone: [facility] Comment on above: Results Start: 10-22-2024 End: 10-22-2024 ambulatory Zach Vicky Facility:[facility] Start: 08-22-2024 End: 09-26-2024 Telephone encounter Jeff Perry MD Work Phone: [facility] Comment on above: Results Start: 08-15-2024 End: 08-15-2024 Patient encounter procedure Charu Pérez APRN.CNP Work Phone: [facility] Comment on above: Hypertension, essent ial (Primary Dx); Type 2 diabetes mellitus without complication, without long-term current use of insulin (HCC); Hyperlipidemia LDL goal <100; Atrial fibrillation, unspecified type (HCC) Start: 08-15-2024 End: 08-15-2024 ambulatory JEFF PERRY Facility:[facility] Start: 08-13-2024 ambulatory Health Risk Assessment Facility:[facility] Start: 08-13-2024 End: 08-13-2024 ambulatory Zach Perry Facility:[facility] Start: 08-01-2024 End: 08-01-2024 Refill Jeff Perry MD Work Phone: [facility] Comment on above: Refill Request Start: 07-30-2024 End: 07-31-2024 Telephone encounter Charu Pérez APRN.CNP Work Phone: [facility] Comment on above: Orders (PSA) Start: 06-21-2024 End: 06-21-2024 ambulatory Kike Darius Facility:[facility] Start: 12-15-2023 End: 12-15-2023 ambulatory [facility] Work Phone: Start: 12-15-2023 End: 12-15-2023 Patient encounter procedure [facility] Work Phone: Start: 08-15-2023 End: 08-15-2023 Patient encounter procedure Jeff Perry MD Work Phone: [facility] Comment on above: Annual physical exam (Primary Dx); Type 2 diabetes mellitus without complication, without long-term current use of insulin (HCC); Hypertension, essential; Hyperlipidemia LDL goal <100; Class 1 obesity due to excess calories with serious comorbidity and body mass index (BMI) of 34.0 to 34.9 in adult; Fatty liver disease, nonalcoholic; Atrial fibrillation, unspecified type (HCC) Start: 06-10-2023 End: 06-10-[address] Zach Perry Work Phone: [facility] Work Phone: Start: 06-10-2023 End: 06-10-[address] Zach Perry Work Phone: [facility], [facility] Work Phone: Start: 05-25-2023 End: 05-25-[address] Zach Perry Work Phone: [facility] Work Phone: Start: 04-18-2023 End: 04-18-[address] Zach Perry Work Phone: [facility] Work Phone: Start: 04-13-2023 End: 04-13-[address] Zach Perry Work Phone: [facility] Work Phone: Start: 02-11-2023 Refill Jeff Perry MD Work Phone: [facility] Comment on above: Refill Request; Refi ll Request Start: 01-24-2023 Refill Jeff Perry MD Work Phone: [facility] Comment on above: Refill Request Start: 11-09-2022 Refill Jeff Perry MD Work Phone: [facility] Comment on above: Refill Request Start: 10-23-2022 Non-patient / Non-visit Dr. Zach Perry Work Phone: [facility] Start: 10-23-2022 Non-patient / Non-visit Dr. Zach Perry Work Phone: [facility] Start: 10-23-2022 End: 10-24-2022 Evaluation and management of inpatient Dr. Zach Perry Work Phone: [facility] Start: 09-08-2022 End: 09-08-[address] Zach Perry Work Phone: [facility] Start: 08-11-2022 End: 08-11-2022 Patient encounter procedure Charu Pérez APRN.CNP Work Phone: [facility] Comment on above: Hypertension, essent ial (Primary Dx); Family history of skin cancer; Acute pain of right knee; Type 2 diabetes mellitus without complication, without long-term current use of insulin (HCC); Hyperlipidemia LDL goal <100 Start: 08-05-[address] [facility] Start: 08-05-2022 End: 08-05-[address] Zach Perry Work Phone: [facility] Work Phone: Start: 08-05-2022 End: 08-05-[address] Zach Perry Work Phone: [facility] Start: 07-27-2022 Telephone encounter Zach Perry MD Work Phone: [facility] Comment on above: requesting lab order Start: 06-18-2022 Refill Jeff Perry MD Work Phone: [facility] Comment on above: Refill Request Start: 04-12-2022 Refill Jeff Perry MD Work Phone: [facility] Comment on above: Refill Request Start: 04-12-2022 End: 04-12-[address] Zach Perry Work Phone: [facility] Start: 03-08-2022 Telephone encounter Charu castro APRN.CNP Work Phone: [facility] Comment on above: Results Start: 03-03-2022 End: 03-03-[address] Zach Perry Work Phone: [facility] Start: 02-17-2022 Telephone encounter Zach Perry MD Work Phone: [facility] Comment on above: Fax requested Start: 02-17-2022 End: 02-17-[address] Zach Perry Work Phone: [facility] Start: 02-03-2022 Non-patient / Non-visit Dr. Zach Perry Work Phone: [facility] Start: 01-27-2022 Refill Jeff Perry MD Work Phone: [facility] Comment on above: Refill Request Request to fax lab o rders to [facility] Start: 12-08-2021 Non-patient / Non-visit Dr. Zach Perry Work Phone: [facility] Start: 12-08-2021 End: 12-08-[address] [facility] Start: 12-07-2021 Non-patient / Non-visit Dr. Zach Perry Work Phone: [facility] Start: 12-07-2021 End: 12-07-[address] [facility] Start: 12-03-2021 End: 12-03-[address] Zach Perry Work Phone: [facility] Start: 12-02-2021 Telephone encounter Charu castro APRN.CNP Work Phone: [facility] Comment on above: Results Start: 11-11-[address] Reji [facility] Start: 11-11-2021 End: 11-11-[address] Zach Perry Work Phone: [facility] Procedures Date Procedure Procedure Detail Performing Clinician Start: 06-10-2023 Plain chest X-ray Dr. Teodoro Perry Work Phone: Start: 10-22-2022 Plain chest X-ray Dr. Teodoro Perry Work Phone: Start: 12-08-2021 MRI of brain without contrast Dr. Zach Perry Work Phone: Start: 07-22-2021 Adult depression screening assessment Jeff Perry MD Work Phone: Start: 08-26-2016 Colonoscopy Zach Perry MD Work Phone: Start: 01-26-2010 End: 01-26-2010 Removal of suture ENCOUNTER FOR REMOVAL OF SUTURES Ajay Acevedo Plan of Treatment Date Care Activity Detail Author Start: 07-22-2031 Urine microalbumin profile [facility] Start: 08-26-2026 Colonoscopy COLONOSCOPY [facility] Start: 08-26-2026 COLORECTAL CANCER SCREENING COLORECTAL CANCER SCREENING [facility] Start: 08-26-2026 Screening for malign ant neoplasm of colon [facility] Start: 12-24-2025 PROSTATE CANCER SCRE ENING DISCUSSION PROSTATE CANCER SCREENING DISCUSSION [facility] Start: 12-24-2025 Prostate specific an tigen measurement Prostate Cancer Screening Discussion [facility] Start: 08-15-2025 Annual PCP Team Neurodiagnostic Technologist billy Disease Visit Annual PCP Team Chronic Disease Visit [facility] Start: 08-15-2025 Covid-19 Vaccine ( season) Covid-19 Vaccine () [facility] Comment on above: Postponed from 07/08 (Declined at this time) Start: 08-15-2025 Diabetic foot examination Diabetic F oot Exam [facility] Start: 06-12-2025 X-ray of knee, four or more views Knee 4 or More Views [facility] Start: 06-12-2025 XR Knee GE 4 Views [facility] Start: 05-06-2025 Influenza vaccination Influenza Vacc ine (#1) [facility] Comment on above: Postponed from 07/08 (Declined at this time) Start: 09-22-2024 End: 12-22-2024 Urinalysis complete panel - Urine URINALYSIS, WITH MICROSCOPIC Lab Routine Proteinuria, unspecified type Expected: 09/22/2024, Expires: 12/22/2024 [facility] Work Phone: Comment on above: Expected: 09/22/2024 , Expires: 12/22/2024 Start: 08-15-2024 End: 08-15-2024 Patient encounter procedure 08/15/2024 5:00 PM EDT Office Visit [facility] [address] [place] [address] PodlogCharu diaz APRN.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 OUT WORKER [address] [place] [address] diabetic med check [facility] Comment on above: diabetic med check Start: 08-15-2024 3 comp foot exam completed Diabetic Foot Exam [facility] Start: 08-15-2024 Annual PCP Team Neurodiagnostic Technologist billy Disease Visit Annual PCP Team Chronic Disease Visit [facility] Start: 08-15-2024 BP Controlled (<130/80) BP Con trolled (<130/80) [facility] Start: 08-15-2024 Covid-19 Vaccine () Covid-19 Vaccine () [facility] Comment on above: Postponed from 07/08 (Declined at this time) Start: 08-15-2024 Diabetic foot examination Diabetic F oot Exam [facility] Start: 08-15-2024 Hepatitis B Vaccine (1 of 3 - 19+ 3-dose series) Hepatitis B Vaccine (1 of 3 - 19+ 3-dose series) [facility] Comment on above: Postponed from 04/09 (Declined at this time) Start: 08-15-2024 Hepatitis B Vaccine (1 of 3 - 3-dose series) Hepatitis B Vaccine (1 of 3 - 3-dose series) [facility] Comment on above: Postponed from 04/09 (Declined at this time) Start: 08-15-2024 Pneumococcal vaccination [facility] Comment on above: Postponed from 04/09 (Declined at this time) Start: 08-15-2024 Shingrix Vaccine (1 of 2) [place] grix Vaccine (1 of 2) [facility] Comment on above: Postponed from 04/09 (Declined at this time) Start: 08-09-2024 Hepatitis B surface antibody level LDL Cholesterol [facility] Start: 07-31-2024 End: 10-30-2024 CBC W Auto Differential panel - Blood COMPLETE BLOOD COUNT AND DIFFERENTIAL Lab Routine Type 2 diabetes mellitus without complication, without long-term current use of insulin (HCC) Expected: 07/31/2024, Expires: 10/30/2024 [facility] Comment on above: Expected: 07/31/2024 , Expires: 10/30/2024 Start: 07-31-2024 End: 10-30-2024 Comprehensive metabolic 2000 panel - Serum or Plasma COMPREHENSIVE METABOLIC PANEL Lab Routine Type 2 diabetes mellitus without complication, without long-term current use of insulin (HCC) Expected: 07/31/2024, Expires: 10/30/2024 [facility] Comment on above: Expected: 07/31/2024 , Expires: 10/30/2024 Start: 07-31-2024 End: 10-30-2024 Hemoglobin A1c in Blood HEMOGLOBIN A1C Lab Routine Type 2 diabetes mellitus without complication, without long-term current use of insulin (HCC) Expected: 07/31/2024, Expires: 10/30/2024 [facility] Comment on above: Expected: 07/31/2024 , Expires: 10/30/2024 Start: 07-31-2024 End: 10-30-2024 Lipid 1996 panel - Serum or Plasma LIPID PANEL BASIC Lab Routine Type 2 diabetes mellitus without complication, without long-term current use of insulin (HCC) Expected: 07/31/2024, Expires: 10/30/2024 [facility] Work Phone: Comment on above: Expected: 07/31/2024 , Expires: 10/30/2024 Start: 07-31-2024 End: 10-30-2024 Prostate specific Ag [Mass/volume] in Serum or Plasma PROSTATE-SPECIFIC ANTIGEN DIAGNOSTIC Lab Routine Screening for prostate cancer Expected: 07/31/2024, Expires: 10/30/2024 [facility] Comment on above: Expected: 07/31/2024 , Expires: 10/30/2024 Start: 07-08-2024 Covid-19 Vaccine () Covid-19 Vaccine () [facility] Start: 07-08-2024 Influenza vaccination Influenza Vacc ine (#1) [facility] Start: 05-06-2024 Influenza vaccination Influenza Vacc ine (#1) [facility] Comment on above: Postponed from 07/08 (Declined at this time) Start: 02-11-2024 Glaucoma screening Dilated Retinal E xam [facility] Start: 02-11-2024 Hepatitis C antibody , confirmatory test DILATED RETINAL EXAM [facility] Start: 10-25-2023 Hepatitis B screening Urine Albumin:Creatinine Ratio [facility] Comment on above: Postponed from 02/13 (Declined at this time) Start: 10-13-2023 Hemoglobin A1c measurement HbA1C [facility] Start: 10-13-2023 Hemoglobin A1c/Hemoglobin.total in Blood HbA1C [facility] Start: 08-11-2023 3 comp foot exam completed DIABETIC FOOT EXAM [facility] Start: 08-11-2023 ANNUAL PCP TEAM PLATE GRINDER BILLY DISEASE VISIT ANNUAL PCP TEAM CHRONIC DISEASE VISIT [facility] Start: 07-08-2023 Influenza vaccination INFLUENZ A (Season Ended) [facility] Start: 12-02-2022 ANNUAL PCP TEAM PLATE GRINDER BILLY DISEASE VISIT ANNUAL PCP TEAM CHRONIC DISEASE VISIT [facility] Start: 11-07-2022 DEPRESSION ASSESSMENT DEPRESSION ASS ESSMENT [facility] Start: 10-25-2022 Blood chemistry [facility] Work Phone: Start: 10-24-2022 Patient discharge [facility] Work Phone: Start: 10-23-2022 End: 10-23-2022 Care planning and problem solving actions [facility] Work Phone: Start: 10-23-2022 Application of intermittent pneumatic compression device [facility] Work Phone: Start: 10-23-2022 Following clinical pathway protocol [facility] Work Phone: Start: 10-23-2022 Assessment of risk o f venous thromboembolism [facility] Work Phone: Start: 10-23-2022 Care regimes management [facility] Work Phone: Start: 10-23-2022 Incentive spirometry [facility] Work Phone: Start: 10-23-2022 Inhalation therapy procedure [facility] Work Phone: Start: 12-17-2022 Insertion of cathete r into peripheral vein [facility] Work Phone: Start: 10-23-2022 Measuring intake and output [facility] Work Phone: Start: 10-23-2022 Providing care accor ding to standard [facility] Work Phone: Start: 10-23-2022 Provision of activit y privileges [facility] Work Phone: Start: 10-23-2022 [facility] Work Phone: Start: 10-23-2022 Verification routine [facility] Work Phone: Start: 10-23-2022 Admission procedure [facility] Work Phone: Start: 10-22-2022 [facility] Work Phone: Start: 09-08-2022 Hepatitis C antibody , confirmatory test DILATED RETINAL EXAM [facility] Start: 08-11-2022 End: 10-11-2022 ALBUMIN/CREAT RATIO RND UR ALBUMIN/CREAT RATIO RND UR Lab Routine Type 2 diabetes mellitus without complication, without long-term current use of insulin (HCC) Expected: 08/11/2022, Expires: 10/11/2022 [facility] Work Phone: Comment on above: Expected: 08/11/2022 , Expires: 10/11/2022 Start: 07-30-2022 End: 09-29-2022 PSA/PROSTSPECAG SCRN PSA/PROSTSPECAG SCRN Lab Routine Screening for prostate cancer Expected: 07/30/2022, Expires: 09/29/2022 [facility] Work Phone: Comment on above: Expected: 07/30/2022 , Expires: 09/29/2022 Start: 07-22-2022 3 comp foot exam completed DIABETIC FOOT EXAM [facility] Start: 07-22-2022 Adult depression screening assessment DEPRESSION SCREENING [facility] Start: 07-22-2022 ONE PNEUMOVAX PRIOR TO AGE 65 ONE PNEUMOVAX PRIOR TO AGE 65 [facility] Comment on above: Postponed from 04/09 (Declined at this time) Start: 07-22-2022 PNEUMOCOCCAL (1 - PCV) PNEUMOCOCCAL (1 - PCV) [facility] Comment on above: Postponed from 04/09 (Declined at this time) Start: 07-08-2022 Influenza vaccination INFLUENZA (#1) [facility] Start: 01-13-2022 Hemoglobin A1c/Hemoglobin.total in Blood HBA1C [facility] Start: 12-24-2021 Hepatitis B surface antibody level LDL CHOLESTEROL [facility] Start: 11-07-2021 DEPRESSION ASSESSMENT DEPRESSION ASS ESSMENT [facility] Start: 05-07-2021 COVID-19 VACCINE (3 - Booster for Moderna series) COVID-19 VACCINE (3 - Booster for Moderna series) [facility] Start: 02-02-2021 COVID-19 VACCINE (3 - Booster for Moderna series) COVID-19 VACCINE (3 - Booster for Moderna series) [facility] Start: 02-13-2019 Hepatitis B screening URINE ALBUMIN:CREATININE RATIO [facility] Start: 05-06-2017 End: 05-06-2017 X-ray exam, knee, 4 or more X-Ray, Knee [facility] Work Phone: Start: 04-18-2017 End: 04-18-2017 Appointment Appointment [facility] Work Phone: Start: 2017 SHINGRIX VACCINE (1 of 2) [place] GRIX VACCINE (1 of 2) [facility] Start: 2012 COLOGUARD (FIT-DNA) COLOGUARD (FIT-D NA) [facility] Start: [address] COLONOGRAPHY [facility] Start: 2012 FECAL OCCULT BLOOD FECAL OCCULT BLOO D [facility] Start: 2012 Screening for malign ant neoplasm of colon [facility] Start: 2012 [facility] Start: 1986 HEPATITIS B (1 of 3 - Risk 3-dose series) HEPATITIS B (1 of 3 - Risk 3-dose series) [facility] Start: 1986 Hepatitis B Vaccine (1 of 3 - 19+ 3-dose series) Hepatitis B Vaccine (1 of 3 - 19+ 3-dose series) [facility] Start: 1986 Pneumococcal Vaccine : 50+ (1 of 2 - PCV) Pneumococcal Vaccine: 50+ (1 of 2 - PCV) [facility] Start: 1985 Anxiety Screening Anxiety Screening [facility] Start: 1985 BP CONTROLLED (<130/80) BP CON TROLLED (<130/80) [facility] Start: 1985 Depression Screening Depression Scre ening [facility] Start: 1973 PNEUMOCOCCAL (1 - PCV) PNEUMOCOCCAL (1 - PCV) [facility] Start: 1973 Pneumococcal vaccination Pneum ococcal Vaccine (1 of 2 - PCV) [facility] Start: 1967 HEPATITIS B (1 of 3 - 3-dose series) HEPATITIS B (1 of 3 - 3-dose series) [facility] Bilirubin measuremen t, urine [facility] Work Phone: Hemoglobin [Presence ] in Urine [facility] Work Phone: Hemoglobin A1c/Hemoglobin.total in Blood [facility] Lipid 1996 panel - S vick or Plasma [facility] Measurement of keton es in urine using dipstick [facility] Work Phone: Patient Education [facility] Work Phone: Patient referral [facility] Work Phone: pH of Urine [facility] Work Phone: Specific gravity of Urine [facility] Work Phone: Thyroid stimulating hormone measurement [facility] Urine dipstick for glucose [facility] Work Phone: Urine dipstick for leukocyte esterase [facility] Work Phone: Urine dipstick for nitrite [facility] Work Phone: Urine dipstick for protein [facility] Work Phone: Urine examination [facility] Work Phone: Urine microalbumin/creatinine ratio measurement [facility] Urobilinogen [Presen ce] in Urine [facility] Work Phone: End: 11-29-2025 US Kidney - bilateral and Urinary bladder US KIDNEY/BLADDER Radiology Routine Proteinuria, unspecified type 1 Occurrences starting 10/30/2024 until 11/29/2025 [facility] Work Phone: Comment on above: 1 Occurrences starti ng 10/30/2024 until 11/29/2025 End: 09-10-2023 XR KNEE GENERAL 4V AP BOTH/PA BOTH/LAT/MERC RIGHT XR KNEE GENERAL 4V AP BOTH/PA BOTH/LAT/MERC RIGHT Radiology Routine Acute pain of right knee 1 Occurrences starting 08/11/2022 until 09/10/2023 [facility] Work Phone: Comment on above: 1 Occurrences starti ng 08/11/2022 until 09/10/2023 [facility] Immunizations Immunization Date Immunization Notes Care Provider Juan Carlos holm 10-01-2024 influenza, seasonal, injectable, preservative free Dr. Zach Perry MD Work Phone: [facility] 09-26-2023 influenza, injectabl e, quadrivalent, preservative free [facility] 09-26-2023 influenza virus vaccine, unspecified formulation Charu Pérez APRN.CNP Work Phone: [facility] 10-05-2022 influenza, injectabl e, quadrivalent, preservative free [facility] 10-05-2022 influenza, seasonal, injectable Dr. Zach Perry Work Phone: [facility] 10-05-2022 influenza virus vaccine, unspecified formulation Jeff Perry MD Work Phone: [facility] 09-17-2021 influenza, injectabl e, quadrivalent, preservative free [facility] 09-17-2021 influenza, seasonal, injectable Dr. Zach Perry Work Phone: [facility] 09-17-2021 influenza, seasonal, injectable, preservative free Jeff Perry MD Work Phone: [facility] Work Phone: 07-22-2021 tetanus toxoid, reduced diphtheria toxoid, and acellular pertussis vaccine, adsorbed Jeff Perry MD Work Phone: [facility] 12-08-2020 COVID-19 vaccine, fu ll dose (MODERNA) Jeff Perry MD Work Phone: [facility] 11-10-2020 COVID-19 vaccine, fu ll dose (MODERNA) Jeff Perry MD Work Phone: [facility] 09-29-2020 influenza, injectabl e, quadrivalent, preservative free [facility] 09-29-2020 influenza, seasonal, injectable Dr. Zach Perry Work Phone: [facility] 09-29-2020 influenza, seasonal, injectable, preservative free Jeff Perry MD Work Phone: [facility] Work Phone: 10-01-2019 influenza, injectabl e, quadrivalent, preservative free [facility] 10-01-2019 influenza, seasonal, injectable Dr. Zach Perry Work Phone: [facility] 10-01-2019 influenza, seasonal, injectable, preservative free Jeff Perry MD Work Phone: [facility] Work Phone: 08-21-2018 influenza, injectabl e, quadrivalent, preservative free [facility] 08-21-2018 influenza, seasonal, injectable Dr. Zach Perry Work Phone: [facility] 08-21-2018 influenza, seasonal, injectable, preservative free Jeff Perry MD Work Phone: [facility] Work Phone: 10-05-2017 influenza, injectabl e, quadrivalent, preservative free [facility] 10-05-2017 influenza, seasonal, injectable Dr. Zach Perry Work Phone: [facility] 10-05-2017 influenza, seasonal, injectable, preservative free Jeff Perry MD Work Phone: [facility] Work Phone: 08-06-2016 influenza, injectabl e, quadrivalent, preservative free [facility] 08-06-2016 influenza, seasonal, injectable Jeff Perry MD Work Phone: [facility] 08-06-2016 influenza, seasonal, injectable, preservative free Jeff Perry MD Work Phone: [facility] Work Phone: 08-06-2015 influenza, injectabl e, quadrivalent, preservative free [facility] 08-06-2015 influenza, seasonal, injectable Dr. Zach Perry Work Phone: [facility] 08-06-2015 influenza, seasonal, injectable, preservative free Jeff ePrry MD Work Phone: [facility] Work Phone: 08-01-2014 influenza, injectabl e, quadrivalent, preservative free [facility] 08-01-2014 influenza, seasonal, injectable Dr. Zach Perry Work Phone: [facility] 08-01-2014 influenza, seasonal, injectable, preservative free Jeff Perry MD Work Phone: [facility] Work Phone: 11-15-[address] Zach Perry Work Phone: [facility] 11-15-2013 influenza, seasonal, injectable Jeff Perry MD Work Phone: [facility] 11-15-2013 influenza, seasonal, injectable, preservative free Jeff Perry MD Work Phone: [facility] Work Phone: 02-13-1985 mumps virus vaccine Artie Perry MD Work Phone: [facility] Work Phone: 02-13-1985 rubella virus vaccine Reji Perry MD Work Phone: [facility] Work Phone: 05-09-1983 diphtheria and tetan us toxoids, adsorbed for pediatric use Jeff Perry MD Work Phone: [facility] Work Phone: 05-09-1983 DTP-Haemophilus influenzae type b conjugate vaccine Jeff Perry MD Work Phone: [facility] Work Phone: 10-23-1980 rubella virus vaccine Reji Perry MD Work Phone: [facility] Work Phone: 1965 DTP-Haemophilus influenzae type b conjugate vaccine Jeff Perry MD Work Phone: [facility] Work Phone: 1965 trivalent poliovirus vaccine, live, oral Jeff Perry MD Work Phone: [facility] Work Phone: 1965 DTP-Haemophilus influenzae type b conjugate vaccine Jeff Perry MD Work Phone: [facility] Work Phone: 1967 trivalent poliovirus vaccine, live, oral Jeff Perry MD Work Phone: [facility] Work Phone: 1965 DTP-Haemophilus influenzae type b conjugate vaccine Jeff Perry MD Work Phone: [facility] Work Phone: 1965 trivalent poliovirus vaccine, live, oral Jeff Perry MD Work Phone: [facility] Work Phone: Payers Date Payer Category Payer Self-pay [id number] 2022 [facility] Health [facility] [id number] 2022-[facility] [phone] [address] [place] [id number] O [id number] 2022 Unknown [id number] 2020 Unknown MMO MMO TPA [id number] 2020-Present [address] [place] [address] PPO [id number] 2020 Unknown MMO MMO TPA [id number] 2020-Present [address] [place] [address] PPO [id number] 2015 Unknown [id number] Unknown [id number] 62 Unknown [id number] 62 Unknown [id number] 62 Unknown [id number] 62 Unknown [id number] 62 Unknown [id number] 62 Unknown [id number] 62 Unknown [id number] 62 Unknown [id number] 62 Unknown [id number] 62 Unknown [id number] 62 Social History Date Type Detail Facility Start: 07-21-2017 End: 03-19-2024 Tobacco smoking status NHIS Never smoked tobacco [facility] Work Phone: Start: 12-21-2021 End: 11-08-2024 Alcohol intake Current drinker of alcohol (finding) [facility] Start: 12-21-2021 End: 08-15-2023 Alcohol intake [facility] Work Phone: Start: 1965 Sex Assigned At Not on file C [facility] Start: 02-17-2022 End: 05-25-2023 Tobacco smoking status KSIS Unknown if ever smoked [facility] Start: 06-03-2020 Non-smoker [facility] Start: 1965 Sex Assigned At Male W [facility] Start: 11-21-2021 End: 07-27-2022 Exposure to SARS-CoV-2 (event) Not sure [facility] Start: 07-21-2017 End: 08-11-2022 Tobacco use and exposure Smokeless tobacco non-user [facility] Start: 08-15-2023 End: 08-15-2024 Tobacco use panel [facility] Work Phone: Adult Depression Screening Assessment 0 [facility] Work Phone: Medical Equipment Procedure Code Equipment Code Equipment Origin al Text Equipment Identifier Dates Arthroscopy, shoulder, with rotator cuff repair FIBERTAPE FDA Start: 07-10-2019 Arthroscopy, shoulder, with rotator cuff repair SPEEDBRIDGE 5.5MM/4.75 FDA Start: 07-10-2019 Arthroscopy, shoulder, with rotator cuff repair SUTURE,2 FIBERLINK FDA Start: 07-10-2019 Arthroscopy, shoulder, with rotator cuff repair SWIVELOCK,4.75 DOUBLE LOCK FDA Start: 07-10-2019 Arthroscopy, shoulder, with rotator cuff repair FIBERTAPE FDA Start: 07-10-2019 Arthroscopy, shoulder, with rotator cuff repair SPEEDBRIDGE 5.5MM/4.75 FDA Start: 07-10-2019 Arthroscopy, shoulder, with rotator cuff repair SUTURE,2 FIBERLINK FDA Start: 07-10-2019 Arthroscopy, shoulder, with rotator cuff repair SWIVELOCK,4.75 DOUBLE LOCK FDA Start: 07-10-2019 Arthroscopy, shoulder, with rotator cuff repair FIBERTAPE FDA Start: 07-10-2019 Arthroscopy, shoulder, with rotator cuff repair SPEEDBRIDGE 5.5MM/4.75 FDA Start: 07-10-2019 Arthroscopy, shoulder, with rotator cuff repair SUTURE,2 FIBERLINK FDA Start: 07-10-2019 Arthroscopy, shoulder, with rotator cuff repair SWIVELOCK,4.75 DOUBLE LOCK FDA Start: 07-10-2019 Arthroscopy, shoulder, with rotator cuff repair FIBERTAPE FDA Start: 07-10-2019 Arthroscopy, shoulder, with rotator cuff repair SPEEDBRIDGE 5.5MM/4.75 FDA Start: 07-10-2019 Arthroscopy, shoulder, with rotator cuff repair SUTURE,2 FIBERLINK FDA Start: 07-10-2019 Arthroscopy, shoulder, with rotator cuff repair SWIVELOCK,4.75 DOUBLE LOCK FDA Start: 07-10-2019 Arthroscopy, shoulder, with rotator cuff repair FIBERTAPE FDA Start: 07-10-2019 Arthroscopy, shoulder, with rotator cuff repair SPEEDBRIDGE 5.5MM/4.75 FDA Start: 07-10-2019 Arthroscopy, shoulder, with rotator cuff repair SUTURE,2 FIBERLINK FDA Start: 07-10-2019 Arthroscopy, shoulder, with rotator cuff repair SWIVELOCK,4.75 DOUBLE LOCK FDA Start: 07-10-2019 Arthroscopy, shoulder, with rotator cuff repair FIBERTAPE FDA Start: 07-10-2019 Arthroscopy, shoulder, with rotator cuff repair SPEEDBRIDGE 5.5MM/4.75 FDA Start: 07-10-2019 Arthroscopy, shoulder, with rotator cuff repair SUTURE,2 FIBERLINK FDA Start: 07-10-2019 Arthroscopy, shoulder, with rotator cuff repair SWIVELOCK,4.75 DOUBLE LOCK FDA Start: 07-10-2019 Arthroscopy, shoulder, with rotator cuff repair FIBERTAPE FDA Start: 07-10-2019 Arthroscopy, shoulder, with rotator cuff repair SPEEDBRIDGE 5.5MM/4.75 FDA Start: 07-10-2019 Arthroscopy, shoulder, with rotator cuff repair SUTURE,2 FIBERLINK FDA Start: 07-10-2019 Arthroscopy, shoulder, with rotator cuff repair SWIVELOCK,4.75 DOUBLE LOCK FDA Start: 07-10-2019 Arthroscopy, shoulder, with rotator cuff repair FIBERTAPE FDA Start: 07-10-2019 Arthroscopy, shoulder, with rotator cuff repair SPEEDBRIDGE 5.5MM/4.75 FDA Start: 07-10-2019 Arthroscopy, shoulder, with rotator cuff repair SUTURE,2 FIBERLINK FDA Start: 07-10-2019 Arthroscopy, shoulder, with rotator cuff repair SWIVELOCK,4.75 DOUBLE LOCK FDA Start: 07-10-2019 Test blood sugar (s) 1 times daily. Dx: 250.00. Insulin: No [id number] Start: 08-05-2015 Comment on above: Test blood sugar(s) 1 times daily. Dx: 250.00. Insulin: No FIBERTAPE AR-7535 FDA Start: 06-11-2020 FIBERTAPE AR-7535 FDA Start: 06-11-2020 FIBERTAPE AR-7535 FDA Start: 06-11-2020 FIBERTAPE AR-7535 FDA Start: 06-11-2020 PUSHLOCK SP,4.5 X 28 FDA Start: 06-11-2020 SWIVELOCK,4.75 DOUBLE LOCK FDA Start: 06-11-2020 FIBERTAPE AR-7535 FDA Start: 06-11-2020 FIBERTAPE AR-7535 FDA Start: 06-11-2020 FIBERTAPE AR-7535 FDA Start: 06-11-2020 FIBERTAPE AR-7535 FDA Start: 06-11-2020 PUSHLOCK SP,4.5 X 28 FDA Start: 06-11-2020 SWIVELOCK,4.75 DOUBLE LOCK FDA Start: 06-11-2020 FIBERTAPE AR-7535 FDA Start: 06-11-2020 FIBERTAPE AR-7535 FDA Start: 06-11-2020 FIBERTAPE AR-7535 FDA Start: 06-11-2020 FIBERTAPE AR-7535 FDA Start: 06-11-2020 PUSHLOCK SP,4.5 X 28 FDA Start: 06-11-2020 SWIVELOCK,4.75 DOUBLE LOCK FDA Start: 06-11-2020 FIBERTAPE AR-7535 FDA Start: 06-11-2020 FIBERTAPE AR-7535 FDA Start: 06-11-2020 FIBERTAPE AR-7535 FDA Start: 06-11-2020 FIBERTAPE AR-7535 FDA Start: 06-11-2020 PUSHLOCK SP,4.5 X 28 FDA Start: 06-11-2020 SWIVELOCK,4.75 DOUBLE LOCK FDA Start: 06-11-2020 FIBERTAPE AR-7535 FDA Start: 06-11-2020 FIBERTAPE AR-7535 FDA Start: 06-11-2020 FIBERTAPE AR-7535 FDA Start: 06-11-2020 FIBERTAPE AR-7535 FDA Start: 06-11-2020 PUSHLOCK SP,4.5 X 28 FDA Start: 06-11-2020 SWIVELOCK,4.75 DOUBLE LOCK FDA Start: 06-11-2020 FIBERTAPE AR-7535 FDA Start: 06-11-2020 FIBERTAPE AR-7535 FDA Start: 06-11-2020 FIBERTAPE AR-7535 FDA Start: 06-11-2020 FIBERTAPE AR-7535 FDA Start: 06-11-2020 PUSHLOCK SP,4.5 X 28 FDA Start: 06-11-2020 SWIVELOCK,4.75 DOUBLE LOCK FDA Start: 06-11-2020 FIBERTAPE AR-7535 FDA Start: 06-11-2020 FIBERTAPE AR-7535 FDA Start: 06-11-2020 FIBERTAPE AR-7535 FDA Start: 06-11-2020 FIBERTAPE AR-7535 FDA Start: 06-11-2020 PUSHLOCK SP,4.5 X 28 FDA Start: 06-11-2020 SWIVELOCK,4.75 DOUBLE LOCK FDA Start: 06-11-2020 FIBERTAPE AR-7535 FDA Start: 06-11-2020 FIBERTAPE AR-7535 FDA Start: 06-11-2020 FIBERTAPE AR-7535 FDA Start: 06-11-2020 FIBERTAPE AR-7535 FDA Start: 06-11-2020 PUSHLOCK SP,4.5 X 28 FDA Start: 06-11-2020 SWIVELOCK,4.75 DOUBLE LOCK FDA Start: 06-11-2020 Goals Date Patient Goal Desired Activity /State Functional Status Date Assessment Result Facility 10-24-2022 Functional status Ambulates;Up ad juli [facility] Work Phone: Mental Status Date Assessment Result Facility 10-24-2022 Cognitive function Level Of Cons ciousness Awake;Alert [facility] Work Phone: 10-23-2022 Cognitive function Voice/Name [facility] Work Phone: 10-22-2022 Cognitive function Level Of Cons ciousness Awake;Alert;Appropriate;Follow s Commands [facility] Work Phone: Clinical Notes 05-04-2017 to 04-16-2025 Note Date & Type Note Facility 04-16-2025 Evaluation note Diagnosis Onset Date Resolution Diabetes chronic April 16 3:21pm Essential hypertension chronic 2024 3:21pm Hyperlipidemia chronic April 16, 2025 3:21pm PEÑA (nonalcoholic steatohepatitis) chronic April 16, 2025 3:21pm Obesity chronic April 16 3:21pm Osteoarthritis of knees, bilateral acute June 12, 2025 3:11pm [facility] Work Phone: 1(834) 120-727202-12-2025 Evaluation note* Diagnosis Onset Date Resolution Status Admit Date Osteoarthritis of knees, bilateral acute December 19, 025 3:39pm [facility] Work Phone: 1(470) 625-537601-02-2025 Telephone encounter Note* Telephone Encounter - Ivory Taveras RN - 11/08/2024 2:55 PM EST Patient calls and notified of results and providers instructions. Patient verbalizes understanding. Patient reports he will have lab completed at [facility] and call back digger operator to February follow up to request order and have it faxed to [facility]. Ivory Taveras RN [facility]01-02-2025 Miscellaneous Notes* Telephone Encounter - Ivory Taveras RN - 11/08/2024 2:55 PM EST Patient calls and notified of results and providers instructions. Patient verbalizes understanding. Patient reports he will have lab completed at [facility] and call back digger operator to February follow up to request order and have it faxed to [facility]. Ivory Taveras RN * Telephone Encounter - Belle Adbi LPN - 11/08/2024 2:45 PM EST Message left for patient to return call and request to speak with a nurse to review provider's message. Belle Abdi LPN * Telephone Encounter - Jeff Perry MD - 11/08/2024 2:27 PM EST His ultrasound of the kidneys and bladder was normal. Nothing to explain small amount of protein and blood. With recent labs showing normal kidney function, would recommend rechecking UA at future OV. Recommend 6 month f/u in February. * Telephone Encounter - Ju Iverson LPN - 11/08/2024 11:18 AM EST Patient calling, states he had his US on 11/03 at [facility]. Asking if PCP has received the results. Please advise. [facility] Telephone encounter Note * Telephone Encounter - Belle Abdi LPN - 11/08/2024 2:45 PM EST Message left for patient to return call and request to speak with a nurse to review provider's message. Belle Abdi LPN [facility]01-02-2025 Telephone encounter Note* Telephone Encounter - Jeff Perry MD - 11/08/2024 2:27 PM EST His ultrasound of the kidneys and bladder was normal. Nothing to explain small amount of protein and blood. With recent labs showing normal kidney function, would recommend rechecking UA at future OV. Recommend 6 month f/u in February. [place] [address]-02-2025 Telephone encounter Note* Telephone Encounter - Ju Iverson LPN - 11/08/2024 11:18 AM EST Patient calling, states he had his US on 11/03 at [facility]. Asking if PCP has received the results. Please advise. [facility] Telephone encounter Note* Telephone Encounter - Belle Abdi LPN - 10/30/2024 12:01 PM EST Phoned patient and reviewed results with him. Patient voiced understanding and he requested order be sent to [facility]. He will contact them for scheduling after [place]. Belle Abdi LPN [facility] Miscellaneous Notes* Telephone Encounter - Belle Abdi LPN - 10/30/2024 12:01 PM EST Phoned patient and reviewed results with him. Patient voiced understanding and he requested order be sent to [facility]. He will contact them for scheduling after [place]. Belle Abdi LPN * Telephone Encounter - Jeff Perry MD - 10/30/2024 11:41 AM EST Received patient's repeat UA from [facility] which shows continued small amount of protein and small amount of blood. Protein is likely 2/2 diabetes. Will check US of kidneys for further workup. [facility] Telephone encounter Note * Telephone Encounter - Jeff Perry MD - 10/30/2024 11:41 AM EST Received patient's repeat UA from [facility] which shows continued small amount of protein and small amount of blood. Protein is likely 2/2 diabetes. Will check US of kidneys for further workup. [facility] Telephone encounter Note* Telephone Encounter - Pooja Cutler LPN - 08/24/2024 11:02 AM EDT Spoke with pt gave information provided. Pt voices understanding. Lab for future ua was faxed to [facility]. [facility] Miscellaneous Notes* Telephone Encounter - Pooja Cutler LPN - 08/24/2024 11:02 AM EDT Spoke with pt gave information provided. Pt voices understanding. Lab for future ua was faxed to [facility]. * Telephone Encounter - Belle Abdi LPN - 08/22/2024 1:23 PM EDT Message left for patient to return call and speak with a nurse to review provider's message. Belle Abdi LPN * Telephone Encounter - Jeff Perry MD - 08/22/2024 12:07 PM EDT Labs completed at [facility] on 08/13 shows controlled DM with A1c of 6.6 and UA is negative for infection.Noted some protein in urine. Recheck UA in 1 month. No change in regimen. [facility] Telephone encounter Note * Telephone Encounter - Belle Abdi LPN - 08/22/2024 1:23 PM EDT Message left for patient to return call and speak with a nurse to review provider's message. Belle Abdi LPN [facility] Telephone encounter Note* Telephone Encounter - Jeff Perry MD - 08/22/2024 12:07 PM EDT Labs completed at [facility] on 08/13 shows controlled DM with A1c of 6.6 and UA is negative for infection.Noted some protein in urine. Recheck UA in 1 month. No change in regimen. 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 DIABETES MELLITUS: Follows with [facility] endocrinology with last appointment last month. Last A1c 6.8% per patient. No medication changes at that time. Denies excessive thirst or increased frequency of urination, chest pain or dyspnea , numbness, tingling or pain in extremities, new or unusual visual symptoms, low sugar/hypoglycemic reactions, weight loss/gain, lightheadedness/dizziness, and bowel changes/loose stools. Follows a diabetic diet most of the time. He is compliant with medication(s) and is tolerating med(s) without any side effects. He reports checking his glucose on a infrequent to not at all basis schedule with sugars in the fasting 98-120 range. Patient's last HgA1C was Hemoglobin A1C (%) Date Value 07/16/2021 7.7 HGB A1C (no units) Date Value 12/24/2020 5.9 06/04/2020 6.3 ) Last Ophthalmology exam was in the last month per patient Atrial fib: follows with [facility] cardiology office visit on 02/21/2024. No medication changes made at that time. Denies SOB, dyspnea, cough, orthopnea, chest pain, palpitations or leg edema HTN: Patient is compliant with meds Yes Monitors bp at home: No. Denies side effects: Yes. Chest pain: No. Dyspnea: No. Edema: No. Palpitations: No. Syncope: No. Headache: No. Dizziness: No. HYPERLIPIDEMIA: Patient is taking medications: Yes. Patient is watching diet: Yes. Patient denies myalgias: Yes. Patient denies gi upset: Yes PAST MEDICAL HISTORY Diagnosis Date Biceps tendon rupture bilateral s/p repair Class 1 obesity due to excess calories with serious comorbidity and body mass index (BMI) of 34.0 to 34.9 in adult DM II (diabetes mellitus, type II) ([facility]) Dr. Kike Mccoy. History of atrial fibrillation [address] Vale managing Hyperlipidemia LDL goal <100 09/04/2015 Hypertension, essential 07/11/2018 Injury of meniscus of left knee PEÑA (nonalcoholic steatohepatitis) Rotator cuff tear arthropathy of both shoulders Sterilization 07/08/2009 ALLERGIES No Known Drug Allergies MEDICATIONS Current Outpatient Medications Medication Sig losartan (COZAAR) 50 mg tablet Take 1 tablet by mouth once daily. hydroCHLOROthiazide 12.5 mg capsule Take 1 capsule by mouth once daily. aspirin 81 mg chewable tablet Take 1 tablet by mouth once daily. glimepiride (AMARYL) 1 mg tablet Take 1 tablet PO with high carb meals atorvastatin (LIPITOR) 40 mg tablet Take 1 tablet by mouth once daily. For cholesterol. pioglitazone (ACTOS) 45 mg tablet Take 1 tablet by mouth once daily. metFORMIN (GLUCOPHAGE) 1,000 mg tablet Take 1 tablet by mouth twice daily with meals. blood sugar diagnostic (BLOOD GLUCOSE TEST) test strip Test blood sugar(s) 1 times daily. Dx: 250.00. Insulin: No No current facility-administered medications for this visit. Medications and allergies reviewed by this provider. SOCIAL HISTORY Social History Tobacco Use Smoking status: Never Smokeless tobacco: Never Substance Use Topics Alcohol use: Yes Alcohol/week: 2.0 standard drinks of alcohol Types: 2 Cans of Beer (12oz) per week Drug use: No REVIEW OF SYSTEMS All other reviewed and negative other than HPI. OBJECTIVE: BP 132/84 Pulse 81 Resp 18 Wt 109.5 kg (241 lb 6.5 oz) SpO2 94% BMI 35.35 kg/m . Vital signs reviewed by this provider. APPEARANCE Well appearing, alert, in no acute distress, well-hydrated, well nourished. EYES PERRLA, conjunctiva and sclera normal. HEART RRR with normal S1 and S2, no murmurs, no gallops, no JVD appreciated LUNG clear to auscultation EXTREMITIES Extremities normal, No deformities, No skin discoloration, No edema, and Normal pulses bilaterally. SKIN Skin color, texture, turgor normal, no suspicious rashes or lesions to exposed skin DM foot exam: shoes and socks removed, No deformities, ulcers, calluses, normal distal pulses, and sensitive to 10 gm monofilament Depression Screening Never done Anxiety Screening Never done BP Controlled (<130/80) Never done Urine Albumin:Creatinine Ratio due on 02/13/2019 HbA1C due on 10/13/2023 Dilated Retinal Exam due on 02/11/2024 LDL Cholesterol due on 08/09/2024 Hepatitis B Vaccine(1 of 3 - 19+ 3-dose series) due on 08/15/2024 Shingrix Vaccine(1 of 2) due on 08/15/2024 Pneumococcal Vaccine(1 of 2 - PCV) due on 08/15/2024 Influenza Vaccine(1) due on 05/06/2025 Covid-19 Vaccine(3 - 2023- season) due on 08/15/2025 Diabetic Foot Exam due on 08/15/2025 Annual PCP Team Chronic Disease Visit due on 08/15/2025 Prostate Cancer Screening Discussion due on 12/24/2025 Colorectal Cancer Screening due on 08/26/2026 DTaP,Tdap,Td Vaccine(7 - Td or Tdap) due on 07/22/2031 Hepatitis C Screening Discontinued HIV Screening Discontinued ASSESSMENT/PLAN: 1. Hypertension, essential - ICD9: 401.9, ICD10: I10 (primary diagnosis) - Controlled - Continue current medications - Recommend home blood pressure monitoring, to bring results to next visit - Encouraged sodium restriction, DASH or Mediterranean diet - Recommend regular aerobic exercise - Discussed need for and benefit of weight loss. BMI 35.35 kg/(m^2) - Follow up in one year for physical 2. Type 2 diabetes mellitus without complication, without long-term current use of insulin (HCC) - ICD9: 250.00, ICD10: E11.9 - Controlled - Continue current medications - Statin prescribed - atorvastatin - Blood glucose monitoring as directed by endocrinology - Counseled on healthy diet and regular exercise - Discussed need for and benefit of weight loss. BMI 35.35 kg/(m^2) - Follow up in 1 year, sooner should any other issues arise. 3. Hyperlipidemia LDL goal <100 - ICD9: 272.4, ICD10: E78.5 - Controlled - Continue current medications - Counseled on healthy diet and regular exercise - Discussed need for and benefit of weight loss. BMI 35.35 kg/(m^2) - Follow up in 1 year, sooner should any other issues arise. 4. Atrial fibrillation, unspecified type (HCC) - ICD9: 427.31, ICD10: I48.91 - stable - follow-up with cardiology as recommended Charu Pérez APRN.SYLVIE Prescription instructions reviewed with patient as applicable. Patient advised if symptoms do not improve or if symptoms worsen sooner, to contact their primary care physician. Potential red flag symptoms discussed with the patient. Reviewed appropriate action plan to take if red flag symptoms occur. Patient agreeable to treatment plan. Medical Decision Making: Problems: Moderate: 2+ stable chronic illnesses Data: Unique test result(s) reviewed: 3+ Risk: Moderate: Moderate risk from testing/treatment Medical Decision Making Level: 4 - Moderate documented in this encounterDoctors Hospital10-09-2024 NoteHNO ID: [id number] Author: CHARU PÉREZ APRN.CNP Service: ? Author Type: Nurse Practitioner Type: Progress Notes Filed: 08/15/2024 16:56 Note Text: 08/15/2024 Patient presents with: Results: Needs form for work completed SUBJECTIVE: This is a 59 year old that is here today for Above Complaints. DIABETES MELLITUS: Follows with [facility] endocrinology with last appointment last month. Last A1c 6.8% per patient. No medication changes at that time. Denies excessive thirst or increased frequency of urination, chest pain or dyspnea , numbness, tingling or pain in extremities, new or unusual visual symptoms, low sugar/hypoglycemic reactions, weight loss/gain, lightheadedness/dizziness, and bowel changes/loose stools. Follows a diabetic diet most of the time. He is compliant with medication(s) and is tolerating med(s) without any side effects. He reports checking his glucose on a infrequent to not at all basis schedule with sugars in the fasting 98-120 range. Patient's last HgA1C was Hemoglobin A1C (%) Date Value 07/16/2021 7.7 HGB A1C (no units) Date Value 12/24/2020 5.9 06/04/2020 6.3 ) Last Ophthalmology exam was in the last month per patient Atrial fib: follows with [facility] cardiology office visit on 02/21/2024. No medication changes made at that time. Denies SOB, dyspnea, cough, orthopnea, chest pain, palpitations or leg edema HTN: Patient is compliant with meds Yes Monitors bp at home: No. Denies side effects: Yes. Chest pain: No. Dyspnea: No. Edema: No. Palpitations: No. Syncope: No. Headache: No. Dizziness: No. HYPERLIPIDEMIA: Patient is taking medications: Yes. Patient is watching diet: Yes. Patient denies myalgias: Yes. Patient denies gi upset: Yes PAST MEDICAL HISTORY Diagnosis Date Biceps tendon rupture bilateral s/p repair Class 1 obesity due to excess calories with serious comorbidity and body mass index (BMI) of 34.0 to 34.9 in adult DM II (diabetes mellitus, type II) ([facility]) Dr. Kike Mccoy. History of atrial fibrillation [address] Vale managing Hyperlipidemia LDL goal <100 09/04/2015 Hypertension, essential 07/11/2018 Injury of meniscus of left knee PEÑA (nonalcoholic steatohepatitis) Rotator cuff tear arthropathy of both shoulders Sterilization 07/08/2009 ALLERGIES No Known Drug Allergies MEDICATIONS Current Outpatient Medications Medication Sig losartan (COZAAR) 50 mg tablet Take 1 tablet by mouth once daily. hydroCHLOROthiazide 12.5 mg capsule Take 1 capsule by mouth once daily. aspirin 81 mg chewable tablet Take 1 tablet by mouth once daily. glimepiride (AMARYL) 1 mg tablet Take 1 tablet PO with high carb meals atorvastatin (LIPITOR) 40 mg tablet Take 1 tablet by mouth once daily. For cholesterol. pioglitazone (ACTOS) 45 mg tablet Take 1 tablet by mouth once daily. metFORMIN (GLUCOPHAGE) 1,000 mg tablet Take 1 tablet by mouth twice daily with meals. blood sugar diagnostic (BLOOD GLUCOSE TEST) test strip Test blood sugar(s) 1 times daily. Dx: 250.00. Insulin: No No current facility-administered medications for this visit. Medications and allergies reviewed by this provider. SOCIAL HISTORY Social History Tobacco Use Smoking status: Never Smokeless tobacco: Never Substance Use Topics Alcohol use: Yes Alcohol/week: 2.0 standard drinks of alcohol Types: 2 Cans of Beer (12oz) per week Drug use: No REVIEW OF SYSTEMS All other reviewed and negative other than HPI. OBJECTIVE: BP 132/84 Pulse 81 Resp 18 Wt 109.5 kg (241 lb 6.5 oz) SpO2 94% BMI 35.35 kg/m? . Vital signs reviewed by this provider. APPEARANCE Well appearing, alert, in no acute distress, well-hydrated, well nourished. EYES PERRLA, conjunctiva and sclera normal. HEART RRR with normal S1 and S2, no murmurs, no gallops, no JVD appreciated LUNG clear to auscultation EXTREMITIES Extremities normal, No deformities, No skin discoloration, No edema, and Normal pulses bilaterally. SKIN Skin color, texture, turgor normal, no suspicious rashes or lesions to exposed skin DM foot exam: shoes and socks removed, No deformities, ulcers, calluses, normal distal pulses, and sensitive to 10 gm monofilament Depression Screening Never done Anxiety Screening Never done BP Controlled (<130/80) Never done Urine Albumin:Creatinine Ratio due on 02/13/2019 HbA1C due on 10/13/2023 Dilated Retinal Exam due on 02/11/2024 LDL Cholesterol due on 08/09/2024 Hepatitis B Vaccine(1 of 3 - 19+ 3-dose series) due on 08/15/2024 Shingrix Vaccine(1 of 2) due on 08/15/2024 Pneumococcal Vaccine(1 of 2 - PCV) due on 08/15/2024 Influenza Vaccine(1) due on 05/06/2025 Covid-19 Vaccine( - 2023- season) due on 08/15/2025 Diabetic Foot Exam due on 08/15/2025 Annual PCP Team Chronic Disease Visit due on 08/15/2025 Prostate Cancer Screening Discussion due on 12/24/2025 Colorectal Cancer Screening due on 08/26/2026 DTaP,Tdap,Td Vaccine(7 - (more content not included)...[facility]09-25-2024 Telephone encounter Note* Telephone Encounter - Stephanie Lui RN - 08/01/2024 11:45 AM EDT The patient has been identified by name and date of : Yes Caregiver verified no other encounters exist for this prescription request: Yes Caregiver confirmed with patient/requestor that no other refills are due, in the near future, with this provider at this time: Yes The last office visit in the department: 08/15/2023 Does the patient have a future office visit with this provider/department: Yes 08/15/2024 Requested Prescriptions Pending Prescriptions Disp Refills losartan (COZAAR) 50 mg tablet 90 tablet 1 Sig: Take 1 tablet by mouth once daily. Stephanie Lui RN August 01, 2024 11:45 AM [facility] Miscellaneous Notes* Telephone Encounter - Stephanie Lui RN - 08/01/2024 11:45 AM EDT The patient has been identified by name and date of : Yes Caregiver verified no other encounters exist for this prescription request: Yes Caregiver confirmed with patient/requestor that no other refills are due, in the near future, with this provider at this time: Yes The last office visit in the department: 08/15/2023 Does the patient have a future office visit with this provider/department: Yes 08/15/2024 Requested Prescriptions Pending Prescriptions Disp Refills losartan (COZAAR) 50 mg tablet 90 tablet 1 Sig: Take 1 tablet by mouth once daily. Stephanie Lui RN August 01, 2024 11:45 AM documented in this encounterDoctors Hospital09-24-2024 Telephone encounter Note * Telephone Encounter - Shannon Ramirez MA - 07/31/2024 9:28 AM EDT Pt notified. Orders faxed to [facility]. Shannon Ramirez MA [facility] Miscellaneous Notes* Telephone Encounter - Shannon Ramirez MA - 07/31/2024 9:28 AM EDT Pt notified. Orders faxed to [facility]. Shannon Ramirez MA * Telephone Encounter - Jeff Perry MD - 07/31/2024 9:06 AM EDT Orders approved. * Telephone Encounter - Belle Barber - 07/30/2024 10:15 AM EDT Patient has apt 08/15 and requesting a PSA order to be sent to [facility] (because he works there) Please advise documented in this encounterDoctors Hospital09-24-2024 Telephone encounter Note * Telephone Encounter - Jeff Perry MD - 07/31/2024 9:06 AM EDT Orders approved. [facility] Telephone encounter Note* Telephone Encounter - Belle Barber - 07/30/2024 10:15 AM EDT Patient has apt 08/15 and requesting a PSA order to be sent to [facility] (because he works there) Please advise [facility] Work Phone: [phone]) 221-661010-09-2023 History of Present illness Narrative* Jeff Perry MD - 08/15/2023 2:58 PM EDT Chief Complaint Patient presents with: Physical: Labs [...] episodes in more than a year. Discontinued hisEliquis and recommended he continue ASA. Patient has not been taking ASA as prescribed and states he misunderstood recommendations. BP controlled on current regimen. PHQ-2 / Depression screen He in the past two weeks denies having felt down, depressed, hopeless or with little interest or pleasure in doing things. Reviewed labs through [facility]. Past medical history, appointments, medications, allergies reviewed. Previous Medical History PAST MEDICAL HISTORY Diagnosis Date Biceps tendon rupture bilateral s/p repair Class 1 obesity due to excess calories with serious comorbidity and body mass index (BMI) of 34.0 to 34.9 in adult DM II (diabetes mellitus, type II) ([facility]) Dr. Kike Mccoy. History of atrial fibrillation [...] incontinence, No difficulty urinating, nocturia > 1 timeper night or hematuria MUSCULOSKELETAL: chronic knee pain [...] scheduled. Jeff Perry MD documented in this encounterDoctors Hospital04-10-2023 Miscellaneous Notes* Telephone Encounter - Prisca Parada LPN - 02/14/2023 11:16 AM EDT Pt is going to call Dr. Mccoy for his diabetic medications. Prisca Parada LPN * Telephone Encounter - Jeff Perry MD - 02/13/2023 5:12 PM EDT Due for f/u OV this month. Please call to schedule OV with our team. * Telephone Encounter - Janett Rich LPN - 02/11/2023 1:37 PM EDT Patient has been identified by name and [...] you. Janett Rich LPN documented in this encounterDoctors Hospital03-20-2023 Miscellaneous Notes* Telephone Encounter - Caitie Martinez [employer] - 01/24/2023 10:58 AM EDT Patient has been identified by name and date of : Yes Requested Prescriptions Pending Prescriptions Disp Refills losartan (COZAAR) 50 mg tablet 90 tablet 3 Sig: Take 1 tablet by mouth once daily. LIS-08/11/22 Labs-08/16/22 NOV-none Med filled 04/12/22 RX INSTRUCTIONS: Patient aware RX will be sent to pharmacy. No need to notify patient. Caitie Martinez [employer] documented in this encounterDoctors Hospital01-04-2023 Miscellaneous Notes* Telephone Encounter - Marcela Lemos Ma - 11/10/2022 9:29 AM EST LIS 08/11/22 NOV none * Telephone Encounter - Flores Peña Pss - 11/09/2022 4:38 PM EST Pharmacy verified in [facility] Patient has been identified by name and [...] advise. Flores Peña Pss documented in this encounterDoctors Hospital10-05-2022 History of Present illness Narrative* Tish Sharma LPN - 08/11/2022 4:17 PM EDT As requested; Lab ordered today faxed to [facility] lab & referral for dermatology faxed to [facility] [place] office. Tish Sharma LPN * Charu Pérez APRN.SHAKE OUT WORKER - 08/11/2022 3:43 PM EDT 08/11/2022 Patient presents with: Yearly Exam: Go over labs Pain: Right knee x3-4 months SUBJECTIVE: This is a 57 year old that is here today for Above Complaints. DM: sees endocrinology over at [facility]. Taking medications as prescribed. Checks blood [...] lipids, and vitamin D level completed through [facility]. Was told vitamin D a littlelow and to take 1000 units of vitamin D daily Recent blood work reviewed with patient PAST MEDICAL HISTORY Diagnosis Date Biceps tendon rupture bilateral s/p repair Class 1 obesity due to excess calories with serious comorbidity and body mass index (BMI) of 34.0 to 34.9 in adult DM II (diabetes mellitus, type II) ([facility]) Hyperlipidemia LDL goal <100 09/04/2015 Hypertension, essential [...] starch, healthy oil intake (olive oil), healthy protein(fish) along the lines of the Mediterranean diet. [...] not will fax xray order over to [facility] - continue current OTC treatments - [...] which included preparing to see the patient, [id number] patient care, completing clinical documentation, obtaining and/or reviewing separately obtained history, performing a medically appropriate examination, counseling and educating the pat ient/family/caregiver, and ordering medications, tests, or procedures. documented in this encounterDoctors Hospital09-23-2022 Miscellaneous Notes* Telephone Encounter - Shannon Ramirez Ma - 07/30/2022 9:47 AM EDT Order faxed to [facility]. Shannon Ramirez Ma * Telephone Encounter - Charu Pérez APRN.CNP - 07/30/2022 7:45 AM EDT Please fax order for PSA blood work to [facility]. Charu Pérez APRN.CNP * Telephone Encounter - Shraddha Nolan LPN - 07/27/2022 2:27 PM EDT Pt called and states he has lab orders at the hospital to have lab work done. He is requesting a PSA test be done. Please fax order to [facility] lab. Shraddah Nolan LPN documented in this encounterDoctors Hospital08-12-2022 Miscellaneous Notes* Telephone Encounter - Aruna Moreau - 06/18/2022 9:30 AM EDT Patient has been identified by name and date of : Yes Requested Prescriptions Pending Prescriptions Disp Refills metFORMIN (GLUCOPHAGE) 1,000 mg tablet 180 tablet 2 Sig: Take 1 tablet by mouth twice daily with meals. LIS-12/02/21 Labs-12/02/21 NOV-none med filled 01/27/22 RX INSTRUCTIONS: Pharmacy initiated this request. No need to notify patient. Aruna Cuellarhl Pss documented in this encounterDoctors Hospital06-06-2022 Miscellaneous Notes* Telephone Encounter - Trinity Burns RN - 04/12/2022 8:17 AM EDT Patient has been identified by name and [...] you. Trinity Burns RN documented in this encounterDoctors Hospital05-02-2022 Miscellaneous Notes* Telephone Encounter - Tish Sharma LPN - 03/08/2022 3:45 PM EDT Patient notified. Tish Sharma LPN * Telephone Encounter - Charu Pérez APRN.SHAKE OUT WORKER - 03/08/2022 2:58 PM EDT Please call patient and let him know his blood work looks good. Continue current medications. Charu Pérez APRN.SYLVIE documented in this encounterDoctors Hospital04-13-2022 Miscellaneous Notes* Telephone Encounter - Ivory Taveras RN - 02/17/2022 3:19 PM EDT Patient calls to report that Dr. Kike Mccoy didn't receive referral packet previously sent. Re-faxedreferral, demographics, labs, medications, and last visit note per request to [phone]. Ivory Taveras RN documented in this encounterDoctors Hospital03-23-2022 Miscellaneous Notes* Telephone Encounter - Trinity Burns RN - 01/27/2022 10:55 AM EDT Patient requesting lab orders be faxed to [facility]. Faxed as requested to [phone]. Trinity Burns RN documented in this encounterDoctors Hospital03-23-2022 Miscellaneous Notes* Telephone Encounter - Trinity Burns RN - 01/27/2022 10:54 AM EDT Patient returned call and given provider's message below and patient verbalized understanding. Patient states he will call back to make darciet. Tony Burns RN * Telephone Encounter - Shraddha Nolan LPN - 01/27/2022 10:38 AM EDT Left a message for pt to call the office and ask to speak to a triage nurse. Shraddha Nolan LPN * Telephone Encounter - Jeff Perry MD - 01/27/2022 10:21 AM EDT Patient due for follow up on his DM end of February. Please call to schedule OV. * Telephone Encounter - Aarti Flores Pss - 01/27/2022 8:17 AM EDT Patient has been identified by name and date of : Yes Pending Prescriptions Disp Refills METFORMIN 1,000 MG TABLET 180 tablet 0 Sig: Take 1 tablet by mouth twice daily with meals. JAMMIE: No LIS-07/22/21 Labs-12/14/21 NOV-none med filled 07/22/21 RX INSTRUCTIONS: Pharmacy initiated this request. No need to notify patient. Aarti Flores Pss documented in this encounterDoctors Hospital01-26-2022 Miscellaneous Notes* Telephone Encounter - Tish Sharma LPN - 12/02/2021 12:27 PM EST Pt made aware and verbalized understanding. Tish Sharma LPN * Telephone Encounter - Charu Pérez APRN.CNP - 12/02/2021 11:51 AM EST I think I forgot to tell patient to start ASA 81 mg daily. Please call and let him know. Charu Pérez APRN.CNP documented in this encounterDoctors Hospital06-28-2017 History of Past illness Narrative* Problem Noted Date Resolved Date Benign hypertension 05/04/2017 05/04/2017 Impaired fasting glucose 07/04/2014 015 Shoulder separation 05/20/2010 09/04/2015 Sterilization 07/08/2009 09/04/2015 Dysmetabolic syndrome X 02/06/2008 08/04/20 15 documented as of this encounter (statuses as of 01/27/2022) [facility] of Past illness Narrative* Problem Noted Date Resolved Date Benign hypertension 05/04/2017 05/04/2017 Impaired fasting glucose 07/04/2014 015 Shoulder separation 05/20/2010 09/04/2015 Sterilization 07/08/2009 09/04/2015 Dysmetabolic syndrome X 02/06/2008 08/04/20 15 documented as of this encounter (statuses as of 01/27/2022) [facility] of Past illness Narrative* Problem Noted Date Resolved Date Benign hypertension 05/04/2017 05/04/2017 Impaired fasting glucose 07/04/2014 015 Shoulder separation 05/20/2010 09/04/2015 Sterilization 07/08/2009 09/04/2015 Dysmetabolic syndrome X 02/06/2008 08/04/20 15 documented as of this encounter (statuses as of 02/17/2022) [facility] of [facility] illness Narrative* Problem Noted Date Resolved Date Benign hypertension 05/04/2017 05/04/2017 Impaired fasting glucose 07/04/2014 015 Shoulder separation 05/20/2010 09/04/2015 Sterilization 07/08/2009 09/04/2015 Dysmetabolic syndrome X 02/06/2008 08/04/20 15 documented as of this encounter (statuses as of 04/12/2022) [facility] Narrative* Problem Noted Date Resolved Date Benign hypertension 05/04/2017 05/04/2017 Impaired fasting glucose 07/04/2014 015 Shoulder separation 05/20/2010 09/04/2015 Sterilization 07/08/2009 09/04/2015 Dysmetabolic syndrome X 02/06/2008 08/04/20 15 documented as of this encounter (statuses as of 05/26/2022) [facility] Narrative* Problem Noted Date Resolved Date Benign hypertension 05/04/2017 05/04/2017 Impaired fasting glucose 07/04/2014 015 Shoulder separation 05/20/2010 09/04/2015 Sterilization 07/08/2009 09/04/2015 Dysmetabolic syndrome X 02/06/2008 08/04/20 15 documented as of this encounter (statuses as of 05/28/2022) [facility] Narrative* Problem Noted Date Resolved Date Benign hypertension 05/04/2017 05/04/2017 Impaired fasting glucose 07/04/2014 015 Shoulder separation 05/20/2010 09/04/2015 Sterilization 07/08/2009 09/04/2015 Dysmetabolic syndrome X 02/06/2008 08/04/20 15 documented as of this encounter (statuses as of 06/21/2022) [facility] Narrative* Problem Noted Date Resolved Date Benign hypertension 05/04/2017 05/04/2017 Impaired fasting glucose 07/04/2014 015 Shoulder separation 05/20/2010 09/04/2015 Sterilization 07/08/2009 09/04/2015 Dysmetabolic syndrome X 02/06/2008 08/04/20 15 documented as of this encounter (statuses as of 07/30/2022) [facility] of Past illness Narrative* Problem Noted Date Resolved Date Benign hypertension 05/04/2017 05/04/2017 Impaired fasting glucose 07/04/2014 015 Shoulder separation 05/20/2010 09/04/2015 Sterilization 07/08/2009 09/04/2015 Dysmetabolic syndrome X 02/06/2008 08/04/20 15 documented as of this encounter (statuses as of 08/11/2022) [facility] History of Past illness Narrative* Problem Noted Date Resolved Date Benign hypertension 05/04/2017 05/04/2017 Impaired fasting glucose 07/04/2014 015 Shoulder separation 05/20/2010 09/04/2015 Sterilization 07/08/2009 09/04/2015 Dysmetabolic syndrome X 02/06/2008 08/04/20 15 documented as of this encounter (statuses as of 11/11/2022) [facility] of Past illness Narrative* Problem Noted Date Resolved Date Benign hypertension 05/04/2017 05/04/2017 Impaired fasting glucose 07/04/2014 015 Shoulder separation 05/20/2010 09/04/2015 Sterilization 07/08/2009 09/04/2015 Dysmetabolic syndrome X 02/06/2008 08/04/20 15 documented as of this encounter (statuses as of 01/25/2023) [facility] History of Past illness Narrative* Problem Noted Date Resolved Date Benign hypertension 05/04/2017 05/04/2017 Impaired fasting glucose 07/04/2014 015 Shoulder separation 05/20/2010 09/04/2015 Sterilization 07/08/2009 09/04/2015 Dysmetabolic syndrome X 02/06/2008 08/04/20 15 documented as of this encounter (statuses as of 03/15/2023) [facility] of Past illness Narrative* Problem Noted Date Diagnosed Date Resolved Date Benign hypertension 05/04/2017 05/04/20 17 Impaired fasting glucose 07/04/2014 Shoulder separation 05/20/2010 09/04/20 15 Sterilization 07/08/2009 09/04/2015 Dysmetabolic syndrome X 02/06/200807/09 documented as of this encounter (statuses as of 08/16/2023) [facility] complaint+Reason for visit Narrative* Chief Complaint COVID-19 CHEST PAIN CHEST PAIN CHEST PAIN Amb Documentation BP ISSUES 6 PAGES OF ORDERS Reason for Visit Essential hypertensi on Hyperlipidemia Shortness of breath [facility] Work Phone: Evaluation note* Diagnosis Type 2 diabetes mellitus without complication, without long-term current use of insulin (HCC) [facility]* Diagnosis Onset Date Resolution Status Essential hypertension acute Hyperlipidemia acute Shortness of breath acute [facility] Work Phone: Evaluation note* Diagnosis Hypertension, essential Unspecified essential hypertension [facility] Diagnosis Type 2 diabetes mellitus without complication, without long-term current use of insulin (HCC) [facility]* Diagnosis Screening for prostate cancer- Primary Special screening for malignant neoplasm of prostate documented in this encounter [facility] note* Diagnosis Onset Date Resolution Status Diabetes mellitus type II, controlled chronic Essential hypertension chron ic Hyperlipidemia chronic [facility] Work Phone: evaluation note* Diagnosis Hypertension, essential- Primary Unspecified essential hypertension Family history of skin cancer Family history of other specified malignant neoplasm Acute pain of right knee Type 2 diabetes mellitus without complication, without long-term current use of insulin (HCC) Hyperlipidemia LDL goal <100 Other and unspecified hyperlipidemia [facility]* Diagnosis Onset Date Resolution Status Essential hypertension chron ic Hyperlipidemia chronic Acute hyperglycemia acute Atrial fibrillation with rapid ventricular response acute Dehydration, mild acute [facility] Work Phone: evaluation note* Diagnosis Onset Date Resolution Status Essential hypertension chron ic Hyperlipidemia chronic Acute hyperglycemia acute Atrial fibrillation with rapid ventricular response acute COVID acute Dehydration, mild acute [facility] Work Phone: evaluation note* Diagnosis Hypertension, essential Unspecified essential hypertension [facility] Diagnosis Hypertension, essential Unspecified essential hypertension [facility]* Diagnosis Type 2 diabetes mellitus without complication, without long-term current use of insulin (HCC) [facility] Diagnosis Onset Date Resolution Status Diabetes mellitus type II, controlled chronic Essential hypertension chron ic Hyperlipidemia chronic Obesity chronic PAF (paroxysmal atrial fibrillation) acute Essential hypertension chron ic Hyperlipidemia chronic [facility] Work Phone: evaluation note* Diagnosis Annual physical exam- Primary Routine [...] unspecified type (HCC) [facility] noteNo assessment information availableWKindred [facility] Work Phone: evalurwgfr note* Diagnosis Type 2 diabetes mellitus without complication, without long-term current use of insulin (HCC)- Primary Screening for prostate cancer Special screening for malignant neoplasm of prostate [facility] Diagnosis Hypertension, essential Unspecified essential hypertension [facility] Hypertension, essential- Primary Unspecified essential hypertension Type 2 diabetes mellitus without complication, without long-term current use of insulin (HCC) Hyperlipidemia LDL goal <100 Other and unspecified hyperlipidemia Atrial fibrillation, unspecified type (HCC) [facility]* Diagnosis Proteinuria, unspecified type- Primary [facility]* Diagnosis Proteinuria, unspecified type- Primary [facility]* Diagnosis Microscopic hematuria- Primary documented in this encounter [facility] for referral (narrative)* Diagnostic Procedure Only (Routine) - Pending Review Specialty Diagnoses / Procedures Referred By Sarah epstein Referred To Contact XR IMAGING Diagnoses Acute pain of right knee Procedures XR KNEE GENERAL 4V AP BOTH/PA BOTH/LAT/MERC RIGHT RADIOLOGIC EXAM KNEE COMPLETE 4/MORE VIEWS PodlogCharu diaz APRN.CNP [address] [place] [address] Xr Imaging Referral ID Status Reason Start Date Expiration Date Visits Requested Visits Authorized [id number] Pending Review Auto-Generat ed Referral 08/11/2022 09/10/2023 1 1 * Transition of Care (Routine) - Ref Not Required Specialty Diagnoses / Procedures Referred By Sarah epstein Referred To Contact Dermatology Diagnoses Family history of skin cancer Procedures CONSULT TO DERMATOLOGY Charu Pérez APRN.CNP [address] [place] [address] Referral ID Status Reason Start Date Expiration Date Visits Requested Visits Authorized [id number] Ref Not Required PCP Requested Referral 08/11/2022 08/11/2023 1 1 [facility] for referral (narrative)* Diagnostic Procedure Only (Routine) - New Request Specialty Diagnoses / Procedures Referred By Sarah epstein Referred To Contact US IMAGING Diagnoses Proteinuria, unspecified type Procedures US KIDNEY/BLADDER US RETROPERITONEAL REAL TIME W/IMAGE COMPLETE Jeff Perry MD [address] [place] [address] [facility] [address] Referral ID Status Reason Start Date Expiration Date Visits Requested Visits Authorized [id number] New Request Auto-Generat ed Referral 4 11/29/2025 1 1 [facility] for referral (narrative)No reason for referral information availableBruning Medical Services Work Phone: Family History Relationship Condition Age at Onset Recorded Date/T madalyn mother Chronic obstructive pulmonary disease Unk nown father Malignant neoplasm Unknown Coronary artery disease Unknown brother Diabetes mellitus Unknown Alcohol abuse Unknown Advance Directives Advance Directive Response Recorded Date/ Time Advance Directives No November 22, 2016 3:20pm Living Will No June 03, 2020 10:28am Power of Artistic Director No June 03 0 10:28am Advance Directive Response Recorded Date/ Time Advance Directives No November 22, 2016 2:20pm Living Will No October 22, 2 022 10:42pm Power of Artistic Director No October 22, 2022 10:42pm Advance Directive Response Recorded Date/ Time Advance Directives No November 22, 2016 2:20pm Living Will No October 23, 2 022 2:01am Power of Artistic Director No October 23, 2022 2:01am Advance Directive Response Recorded Date/ Time Advance Directives No November 22, 2016 3:20pm Living Will No October 23, 2 022 3:01am Power of Artistic Director No October 23, 2022 3:01am Advance Directive Response Recorded Date/ Time Advance Directives No March 19 4 11:57am Chief Complaint and Reason for Visit Chief Complaint 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, 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, 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 [employer] Reason for Visit Diabetes mellitus ty pe II, controlled Essential hypertension Hyperlipidemia Chief Complaint 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 RAPID RATE ATRIAL 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 RAPID RATE Reason for Visit Essential hypertensi on Hyperlipidemia Acute hyperglycemia Atrial fibrillation with rapid ventricular response Dehydration, mild Chief Complaint 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 RAPID RATE ATRIAL 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 RAPID RATE Reason for Visit Essential hypertensi on Hyperlipidemia Acute hyperglycemia Atrial fibrillation with rapid ventricular response COVID Dehydration, mild Chief Complaint INT LABS 1 Y FU 4 MO F/U *NEEDS 4PM Reason for Visit Diabetes mellitus ty pe II, controlled Essential hypertension Hyperlipidemia Obesity PAF (paroxysmal atrial fibrillation) Essential hypertension Hyperlipidemia Chief Complaint E-ORDER Chief Complaint Admit Date BILATERAL KNEES December 19, 2024 3:39pm 10 M FU, NS 12/21April 16, 2025 3:21 pm Reason for Visit Admit Date Osteoarthritis of knees, bilateral Febru leslie 2024 3:39pm Chief Complaint Admit Date 10 M FU, NS 12/21April 16, 2025 3:21 pm BL KNEES June 12, 2025 3:1 1pm Reason for Visit Admit Date Diabetes April 16, 2025 3:21 pm Essential hypertension April 16, 2025 3 :21pm Hyperlipidemia April 16, 2025 3:21 pm PEÑA (nonalcoholic steatohepatitis) April 16, 2025 3:21pm Obesity April 16, 2025 3:21 pm Osteoarthritis of knees, bilateral Augus t 2024 3:11pm Summary Purpose Additional Source Comments Source Comments (unrecognize d section and content) In the event this informatio n is protected by the Federal Confidentiality of Alcohol and Drug Abuse Patient Records regulations: The Federal rules restrict any use of the information to criminally investigate or prosecute any alcohol or drug abuse patient.[facility] Hospital[facility] the event this information is protected by the Federal Confidentiality of Alcohol and Drug Abuse Patient Records regulations: The Federal rules restrict any use of the information to criminally investigate or prosecute any alcohol or drug abuse patient.[facility] HospitalIn the event this information is protected by the Federal Confidentiality of Alcohol and Drug Abuse Patient Records regulations: The Federal rules restrict any use of the information to criminally investigate or prosecute any alcohol or drug abuse patient.[facility] HospitalIn the event this information is protected by the Federal Confidentiality of Alcohol and Drug Abuse Patient Records regulations: The Federal rules restrict any use of the information to criminally investigate or prosecute any alcohol or drug abuse patient.[facility] HospitalIn the event this information is protected by the Federal Confidentiality of Alcohol and Drug Abuse Patient Records regulations: The Federal rules restrict any use of the information to criminally investigate or prosecute any alcohol or drug abuse patient.[facility] HospitalIn the event this information is protected by the Federal Confidentiality of Alcohol and Drug Abuse Patient Records regulations: The Federal rules restrict any use of the information to criminally investigate or prosecute any alcohol or drug abuse patient.[facility] HospitalIn the event this information is protected by the Federal Confidentiality of Alcohol and Drug Abuse Patient Records regulations: The Federal rules restrict any use of the information to criminally investigate or prosecute any alcohol or drug abuse patient.[facility] HospitalIn the event this information is protected by the Federal Confidentiality of Alcohol and Drug Abuse Patient Records regulations: The Federal rules restrict any use of the information to criminally investigate or prosecute any alcohol or drug abuse patient.[facility] HospitalIn the event this information is protected by the Federal Confidentiality of Alcohol and Drug Abuse Patient Records regulations: The Federal rules restrict any use of the information to criminally investigate or prosecute any alcohol or drug abuse patient.[facility] HospitalIn the event this information is protected by the Federal Confidentiality of Alcohol and Drug Abuse Patient Records regulations: The Federal rules restrict any use of the information to criminally investigate or prosecute any alcohol or drug abuse patient.[facility] HospitalIn the event this information is protected by the Federal Confidentiality of Alcohol and Drug Abuse Patient Records regulations: The Federal rules restrict any use of the information to criminally investigate or prosecute any alcohol or drug abuse patient.[facility] HospitalIn the event this information is protected by the Federal Confidentiality of Alcohol and Drug Abuse Patient Records regulations: The Federal rules restrict any use of the information to criminally investigate or prosecute any alcohol or drug abuse patient.[facility] HospitalIn the event this information is protected by the Federal Confidentiality of Alcohol and Drug Abuse Patient Records regulations: The Federal rules restrict any use of the information to criminally investigate or prosecute any alcohol or drug abuse patient.[facility] HospitalIn the event this information is protected by the Federal Confidentiality of Alcohol and Drug Abuse Patient Records regulations: The Federal rules restrict any use of the information to criminally investigate or prosecute any alcohol or drug abuse patient.[facility] HospitalIn the event this information is protected by the Federal Confidentiality of Alcohol and Drug Abuse Patient Records regulations: The Federal rules restrict any use of the information to criminally investigate or prosecute any alcohol or drug abuse patient.[facility] HospitalIn the event this information is protected by the Federal Confidentiality of Alcohol and Drug Abuse Patient Records regulations: The Federal rules restrict any use of the information to criminally investigate or prosecute any alcohol or drug abuse patient.[facility] HospitalIn the event this information is protected by the Federal Confidentiality of Alcohol and Drug Abuse Patient Records regulations: The Federal rules restrict any use of the information to criminally investigate or prosecute any alcohol or drug abuse patient.[facility] HospitalIn the event this information is protected by the Federal Confidentiality of Alcohol and Drug Abuse Patient Records regulations: The Federal rules restrict any use of the information to criminally investigate or prosecute any alcohol or drug abuse patient.[facility] HospitalIn the event this information is protected by the Federal Confidentiality of Alcohol and Drug Abuse Patient Records regulations: The Federal rules restrict any use of the information to criminally investigate or prosecute any alcohol or drug abuse patient.[facility] Reason for Visit (unrecogniz ed section and content) Reason Onset Date Comments Refill Request 01/27/2022 Reason Comments Request to fax lab orders to [facility] Reason Comments Fax requested Reason Onset Date Comments Refill Request 04/12/2022 Reason Comments Results Reason Comments Refill Request Reason Comments requesting lab order Reason Comments Yearly Exam Go over labs Pain Right knee x3-4 ivon hs Specialty Diagnoses / Procedures Referred By Sarah epstein Referred To Contact Family Medicine / FAMILY MEDICINE Diagnoses General check up on lab work results, look at knee, Procedures OFFICE/OUTPATIENT ESTABLISHED HIGH MDM 40-54 MIN 4C EST Self Podlogar, [address]IA [address] [place] [address] Referral ID Status Reason Start Date Expiration Date Visits Re quested Visits Authorized [id number] Closed 07/29/2022 11/06/2022 1 1 Reason Onset Date Comments Refill Request 11/09/2022 Reason Onset Date Comments Refill Request 02/11/2023 Refill Request 03/15/2023 Reason Comments Physical Labs completed last week Reason Comments Orders PSA Reason Onset Date Comments Refill Request 08/01/2024 Reason Comments Results Needs form for work completed Reason Comments Results Care Teams (unrecognized sec tion and content) Graduating Machine Operator Relationship Specialty Start Date End Date Jeff Perry MD [address] [place], [place] [id number] PCP - General Family Practice 07/25/21 Graduating Machine Operator Relationship Specialty Start Date End Date Jeff Perry MD [address] [facility] [place] [address] PCP - General Family Practice 07/25/21 Graduating Machine Operator Relationship Specialty Start Date End Date Jeff Perry MD [address] [facility] [place] [address] PCP - General Family Practice 07/25/21 Graduating Machine Operator Relationship Specialty Start Date End Date Jeff Perry MD [address] [facility] [place] [address] PCP - General Family Practice 07/25/21 Graduating Machine Operator Relationship Specialty Start Date End Date Jeff Perry MD [address] [facility] [place] [address] PCP - General Family Medicine 07/25/21 Graduating Machine Operator Relationship Specialty Start Date End Date Jeff Perry MD [address] [facility] [place] [address] PCP - General Family Medicine 07/25/21 Graduating Machine Operator Relationship Specialty Start Date End Date Jeff Perry MD [address] [facility] [place] [address] PCP - General Family Medicine 07/25/21 Graduating Machine Operator Relationship Specialty Start Date End Date Jeff Perry MD [address] [facility] [place] [address] PCP - General Family Medicine 07/25/21 Team Status: Active Member Role Status Dates Dr. Neal Brown III, MD Family Provider Active Dr. Zach Perry MD Primary Care Provider Acti ve Team Status: Inactive Member Role Status Dates Dr. Zach Perry MD Primary Care Provider, Ref erring Provider Active Dr. Kike Mccoy MD Attending Provider Active Team Status: Inactive Member Role Status Dates Dr. Zach Perry MD Primary Care Provider, Ref erring Provider Active Tish Henao PA, PA Attending Provider Active Team Status: Inactive Member Role Status Dates Dr. Zach Perry MD Primary Care Provider Acti ve Dr. Kike Mccoy MD Attending Provider, Referring Provi leonel Active Team Status: Inactive Member Role Status Dates Dr. Zach Perry MD Primary Care Provider Acti ve Tish Henao PA, PA Attending Provider, Referr ing Provider Active Graduating Machine Operator Relationship Specialty Start Date End Date Jeff Perry MD [address] [facility] [place] [address] PCP - General Family Medicine 07/25/21 Graduating Machine Operator Relationship Specialty Start Date End Date Jeff Perry MD [address] [facility] [place] [address] PCP - General Family Medicine 07/25/21 Graduating Machine Operator Relationship Specialty Start Date End Date Jeff Perry MD [address] [facility] [place] [address] PCP - General Family Medicine 07/25/21 Graduating Machine Operator Relationship Specialty Start Date End Date Jeff Perry MD [address] [facility] [place] [address] PCP - General Family Medicine 07/25/21 Podlogar, Charu, PLASTICS SEASONER OPERATOR.SHAKE OUT WORKER [address] [facility] [place] [address] Double Corner Cutter Family Medicine 10/13/24 Graduating Machine Operator Relationship Specialty Start Date End Date Jeff Perry MD [address] [facility] [place] [address] PCP - General Family Medicine 07/25/21 Podlogar, Charu, PLASTICS SEASONER OPERATOR.SHAKE OUT WORKER [address] [place] [address] Double Corner Cutter Family Medicine 10/13/24 Team Status: Inactive Member Role Status Dates Dr. Zach Perry MD Primary Care Provider Acti ve Start: December 19, 2024 End: December 19, 2024 Dr. Zach Perry MD Referring Provider Active Start: December 19, 2024 End: December 19, 2024 Dr. Jose Martini DO Attending Provider Active Start: December 19, 2024 End: December 19, 2024 Team Status: Inactive Member Role Status Dates Dr. Zach Perry MD Primary Care Provider Acti ve Start: April 16, 2025 End: April 16, 2025 Dr. Zach Perry MD Referring Provider Active Start: April 16, 2025 End: April 16, 2025 Dr. Kike Mccoy MD Attending Provider Active Sta rt: April 16, 2025 End: April 16, 2025 Team Status: Active Member Role/Relationship Status Dates Dr. Zach Perry MD Primary Care Provider Acti ve Team Status: Inactive Member Role/Relationship Status Dates Dr. Zach Perry MD Primary Care Provider Acti ve Start: April 16, 2025 End: April 16, 2025 Dr. Zach Perry MD Referring Provider Active Start: April 16, 2025 End: April 16, 2025 Dr. Kike Mccoy MD Attending Provider Active Sta rt: April 16, 2025 End: April 16, 2025 Team Status: Active Member Role/Relationship Status Dates Dr. Zach Perry MD Primary Care Provider Acti ve Start: June 12, 2025 Dr. Jose Martini DO Attending Provider Active Start: June 12, 2025 Dr. Jose Martini DO Referring Provider Active Start: June 12, 2025 Team Status: Inactive Member Role/Relationship Status Dates Dr. Zach Perry MD Primary Care Provider Acti ve Start: June 12, 2025 End: June 12, 2025 Dr. Zach Perry MD Referring Provider Active Start: June 12, 2025 End: June 12, 2025 Dr. Jose Martini DO Attending Provider Active Start: June 12, 2025 End: [place] 6th, 2025 Goals (unrecognized section and content) Goals may be documented in a n alternate sectionGoals may be documented in an alternate sectionGoals may be documented in an alternate sectionGoals may be documented in an alternate sectionGoals may be documented in an alternate sectionGoals may be documented in an alternate sectionGoals may be documented in an alternate section (unrecognized sect ion and content) No Status Records FoundNo Status Records Found INFORMATION SOURCE (unrecogn ized section and content) DATE CREATED AUTHOR 11/15/2024 [facility] DATE CREATED AUTHOR AUTHOR'S JENNA KAPLAN 06/09/2025 [facility] [place] FOR RECORDS PERTAINING TO PATIENTS WHO ARE [...] BE BASED ON THE PRIMARY CLINICAL RECORDS. [employer] provides no warranty or guarantee of the accuracy or completeness of information in this document.
== END | disposition home or self-care (01) ==
LOC: MTRAD 14:51
PROVIDERS: PCP Family Medicine; Referring Provider Orthopaedic Surgery; Visit Provider Orthopaedic Surgery
DX: M25.561 Pain in right knee (principal); M25.562 Pain in left knee
CPT/HCPCS: 73564

== ENCOUNTER → 2025-07-19 | Outpatient (CLI) | payer OTHER, SELFPAY ==
[2025-07-19 09:41] LABS: Creatinine, Urine (random) 304.00 mg/dL (39.00-259.00); Microalbumin,Random Urine < 12.0 mg/L (<20 mg/L)
[2025-07-19 12:45] LABS: PSA,Total - Annual Screen 0.34 ng/mL (0.02-4.00); Vitamin D,25 Hydroxy 23.2 ng/mL (30-100)
== END | disposition home or self-care (01) ==
PROVIDERS: PCP Family Medicine; Referring Provider Nurse Practitioner Family; Visit Provider Nurse Practitioner Family
DX: E11.65 Type 2 diabetes mellitus with hyperglycemia (principal)
CPT/HCPCS: 36415; 82043; 82306; 82570; 84153; 84443; G0103

== ENCOUNTER → 2025-08-01 | Outpatient (CLI) | payer OTHER, SELFPAY ==
--- NOTE | 2025-08-01 18:50 | CT_ITS ---
PROCEDURE: EXTREMITY LOWER WITHOUT CONTRA 08/01/2025 REASON FOR EXAM: TEMPLATING FOR LEFT TKA TECHNIQUE: Procedure Code: CTELWO Modality: CT Procedure: EXTREMITY LOWER WITHOUT CONTRA Coronal and Sagittal reconstruction series were provided. CONTRAST: None One or more dose reduction techniques were used (e.g., Automated exposure control, adjustment of the mA and/or kV according to patient size, use of iterative reconstruction technique). RADIATION DOSE SUMMARY: DLP: 1460 mGycm COMPARISON: None FINDINGS: There is moderate tricompartment osteoarthritis, most severe in the medial compartment. Marginal osteophytes are noted. There is a 0.7 cm corticated osteochondral fragment in the medial joint space. Chondrocalcinosis is visible in the medial and lateral meniscus. There is no significant effusion. There is no Mauro's cyst. There is no visible atherosclerosis. CT/Extremity Lower without Contra IMPRESSION: There is moderate tricompartment osteoarthritis, most severe in the medial comp artment. Marginal osteophytes are noted. There is a 0.7 cm corticated osteochondral fragment in the medial joint space. Reading Location: [facility]
--- NOTE | 2025-08-01 18:50 | CT_ITS ---
PROCEDURE: EXTREMITY LOWER WITHOUT CONTRA 08/01/2025 REASON FOR EXAM: TEMPLATING FOR LEFT TKA TECHNIQUE: Procedure Code: CTELWO Modality: CT Procedure: EXTREMITY LOWER WITHOUT CONTRA Coronal and Sagittal reconstruction series were provided. CONTRAST: None One or more dose reduction techniques were used (e.g., Automated exposure control, adjustment of the mA and/or kV according to patient size, use of iterative reconstruction technique). RADIATION DOSE SUMMARY: DLP: 1460 mGycm COMPARISON: None FINDINGS: There is moderate tricompartment osteoarthritis, most severe in the medial compartment. Marginal osteophytes are noted. There is a 0.7 cm corticated osteochondral fragment in the medial joint space. Chondrocalcinosis is visible in the medial and lateral meniscus. There is no significant effusion. There is no Mauro's cyst. There is no visible atherosclerosis. CT/Extremity Lower without Contra IMPRESSION: There is moderate tricompartment osteoarthritis, most severe in the medial comp artment. Marginal osteophytes are noted. There is a 0.7 cm corticated osteochondral fragment in the medial joint space. Reading Location: [facility]
--- OUTSIDE RECORDS SUMMARY | 2025-08-01 18:55 | XMS RPT_ITS | CCD ---
Author Organization [facility] Care Team Providers Care Electrical Tester Name Role Phone Ajay Acevedo Unavailable Joselyn Finnegan LPN Unavailable Unavailab Joselyn Crawford LPN Unavailable Unavailab le Ajay Acevedo Unavailable Jeff Perry MD Primary Care Provider Dr. Zach Perry Primary Care Provider Dr. Zach Perry Referring Provider Dr. John eLmus Attending Provider Dr. John Brown Attending Provider Podlogar APPLICATION DEVELOPMENT INTERN, APPLICATION DEVELOPMENT INTERN-C Charu Referring Provider Dr. Jonathan Vale Attending Provider Podlogar APPLICATION DEVELOPMENT INTERN, GENIA-C Charu Other Provider Belle Botello Attending Provider Unavailable Jeff Perry MD Primary Care Provider Jeff Perry MD Primary Care Provider Dr. Zach Perry Primary Care Provider Dr. Zach Perry Referring Provider FRITZ Blake Attending Provider Dr. Zach Perry Primary Care Provider [phone] Dr. Zach Perry Referring Provider Juliano CASAS, YESSENIA Scherer Attending Provider Dr. Florin Miranda Emergency Provider Dr. Maryann Castañeda Admit Provider Dr. Maryann Castañeda Attending Provider Dr. Maryann Castañeda Other Provider Dr. Jennifer Carrillo Attending Provider Jeff Perry MD Primary Care Provider Dr. Zach Perry Primary Care Provider [phone] Dr. Zach Perry Referring Provider Dr. Kike Mccoy Attending Provider Juliano CASAS, PA Tish Scherer Attending Provider Jeff Perry MD Primary Care Provider Podlogar MEDICAL WRITER.Charu MERCER Unavailable Vicky GONZALEZ, Dr. Serrano Primary Care Provider Vicky GONZALEZ, Dr. Serrano Referring Provider Dr. Jose Martini DO Attending Provider Dr. Kike Mccoy MD Attending Provider Vicky GONZALEZ, Dr. Serrano Primary Care Provider Dr. Zach Perry MD Referring Provider Dr. Jose Martini DO Attending Provider Dr. Jose Martini DO Referring Provider Lou CORMIER-CEmigdio Attending Provider Travis MEDICAL WRITER.Jabier MERCER Unavailable JABIER GIRON Attending Unavailable JEFF PERRY Primary Care Unavailab le JEFF PERRY Primary Care Unavailab le PODLOGCHARU DIAZ Attending Unavailable Jose Martini Referring Unavailable Jose Martini Attending Unavailable Zach Perry Primary Care Unavailable Zach Perry Primary Care Unavailable Assessment, Health Risk Referring Unavaila ble Assessment, Health Risk Attending Unavaila ble Bursley, Zach Primary Care Unavailable Assessment, Health Risk Referring Unavaila ble Assessment, Health Risk Attending Unavaila ble Bursley, Zach Primary Care Unavailable Bursley, Zach Referring Unavailable Borruso, Jose Attending Unavailable Bursley, Zach Primary Care Unavailable Kike Mccoy Attending Unavailable Bursley, Zach Referring Unavailable Borruso, Jose Attending Unavailable Bursley, Zach Referring Unavailable Bursley, Zach Primary Care Unavailable Emigdio Blake Attending Unavailable Bursley, Zach Referring Unavailable Bursley, Zach Primary Care Unavailable Bursley, Zach Primary Care Unavailable Bursley, Zach Referring Unavailable Borruso, Jose Attending Unavailable Borruso, Jose Attending Unavailable Bursley, Zach Referring Unavailable Bursley, Zach Primary Care Unavailable Bursley, Zach Primary Care Unavailable Bursley, Zach Referring Unavailable Kike Mccoy Attending Unavailable Bursley, Zach Primary Care Unavailable Bursley, Zach Referring Unavailable Borruso, Jose Attending Unavailable Bursley, Zach Referring Unavailable Bursley, Zach Attending Unavailable Bursley, Zach Primary Care Unavailable Borruso, Jose Referring Unavailable Borruso, Jose Attending Unavailable Bursley, Zach Primary Care Unavailable Bursley, Zach Primary Care Unavailable Bursley, Zach Referring Unavailable Bursley, Zach Attending Unavailable Bursley, Zach Primary Care Unavailable Bursley, Zach Referring Unavailable Bursley, Zach Attending Unavailable Borruso, Jose Attending Unavailable Borruso, Jose Referring Unavailable Bursley, Zach Primary Care Unavailable Emigdio Blake Referring Unavailable Emigdio Blake Attending Unavailable Bursley, Zach Primary Care Unavailable Borruso, Jose Referring Unavailable Borruso, Jose Attending Unavailable Bursley, Zach Primary Care Unavailable Allergies Allergy Classification Reported Allergen(s) Allergy Type Date of Onset Reaction(s) Facility (10 sources) Lisinopril Drug Allergy 02-17-2022 Dry Cough [facility] (1 source) Lisinopril Drug Allergy 07-25-2025 [facility] Repository Medications Current Medications Medication Drug Class(es) Dates Sig (Normalized) Sig (Original) aspirin 81 mg chewable tablet (20 sources) Platelet Aggregation Inhibitor, Nonsteroidal [...] 1 tablet by saturnino th once daily. atorvastatin 40 mg oral tablet (20 sources) HMG-CoA Reductase Inhibitor Start: 02-04-20 End: 05-29-20 take 1 tablet by mouth once daily for hyperlipidemia atorvastatin (LIPITOR) 40 mg tablet Take 1 tablet by mouth once daily. For cholesterol. 90 tablet 1 08/19/2022 Active Start: 11-10-2021 take 1 tablet by saturnino [...] another Health Care Provider) Start: 08-25-2016 End: 02-03-2022 take 1 tablet by mouth once daily Glimepiride 2 MG tablet Discontinued 2 mg PO DAILY August 25, 2016 12:00am February 03, 2022 11:07am Comment on above: Take 1 tablet by saturnino th daily with breakfast. Take 1 tablet PO wit h high carb meals hydroCHLOROthiazide 12.5 mg oral capsule (20 sources) Thiazide Diuretic Start: 2023 End: 2024 take 1 capsule by mouth once daily hydroCHLOROthiazide 12.5 mg capsule Indications: Hypertension, essential Take 1 capsule by mouth once daily. 90 capsule 3 11/14/2023 Active Start: 12-09-2021 End: 04-18-2023 take 1 capsule by mouth once daily Hydrochlorothiazide 12.5 mg capsule Discontinued 12.5 mg PO DAILY February 17, 2022 12:00am April 18, 2023 2:12pm Comment on above: Take 1 capsule by mo ut once daily. losartan potassium 50 mg oral tablet (20 sources) Angiotensin 2 Receptor Susan Start: 2 End: take 1 tablet by mouth once daily Losartan 25 mg tablet Discontinued 25 mg PO DAILY February 03, 2022 12:00am February 17, 2022 2:25pm Start: 01-14-2022 End: 01-28-2025 take 1 tablet by mouth once daily losartan (COZAAR) 50 mg tablet Indications: Hypertension, essential Take 1 tablet by mouth once daily. 90 tablet 1 08/01/2024 Active Comment on above: Take 1 tablet by saturnino th once daily. metFORMIN hydrochloride 1000 mg oral tablet (20 sources) Biguanide Start: End: take 1 tablet by mouth twice daily at mealtime metFORMIN (GLUCOPHAGE) 1,000 mg tablet Indications: Type 2 diabetes mellitus without complication, without long-term current use of insulin (HCC) Take 1 tablet by mouth twice daily with meals. 180 tablet 2 06/21/2022 Active Start: 08-25-2016 End: 02-03-2022 take 1 tablet by mouth twice daily Metformin 500 MG tablet,ER prudence.retention 24 hr Discontinued 500 mg PO TWICE A DAY August 25, 2016 12:00am February 03, 2022 11:06am Comment on above: Take 1 tablet by saturnino th twice daily with meals. MOUNJARO 5 mg/0.5 mL pen injector (1 source) Start: 2024 inject 5 mg by subcutaneous injection every week MOUNJARO 5 mg/0.5 mL pen injector Inject 5 mg subcutaneously one time a week. 06/10/2025 Active pioglitazone 45 mg oral tablet (20 sources) Peroxisome Proliferator Receptor alpha Agonist, Peroxisome Proliferator Receptor gamma Agonist, Thiazolidinedione Start: 2021 End: 2024 take 1 tablet by mouth once daily pioglitazone (ACTOS) 45 mg tablet Indications: Type 2 diabetes mellitus without complication, without long-term current use of insulin (HCC) Take 1 tablet by mouth once daily. 90 tablet 1 08/19/2022 Active Start: 07-22-2021 take 1 tablet by saturnino [...] 1 tablet by saturnino th once daily. Tirzepatide (Mounjaro) 5 mg/0.5 mL pen injector (3 sources) Start: 06-10-2025 Tirzepatide (Mounjaro) 5 mg/0.5 mL pen injector Active 5 mg SC EVERY WEEK 6 0 June 10, 2025 12:00am Completed/Discontinued Medications Medication Drug Class(es) Dates Sig (Normalized) Sig (Original) acetaminophen 325 mg / oxyCODONE hydrochloride 5 mg oral tablet (10 sources) Opioid Agonist Start: 06-11-2020 End: 06-16-2020 [...] 2020 11:02pm apixaban 5 mg oral tablet (13 sources) Factor Xa Inhibitor Start: 10-24-2022 End: 01-26-2023 take 1 tablet by mouth twice daily Apixaban (Eliquis) 5 mg tablet Discontinued 5 mg PO TWICE A DAY 180 October 26, 2022 3:00pm January 26, 2023 2:33pm cephalexin 500 mg oral tablet (4 sources) Cephalosporin Antibacterial Start: 01-26-2010 End: 01-31-2010 take 1 tablet by mouth four times daily KEFLEX 500 MG CAPS One tablet by mouth four times daily. CEPHALEXIN [id number] Royce Aleman MD Start: 01-26-2010 End: 01-31-2010 take 1 tablet by mouth four times daily KEFLEX 500 MG CAPS One tablet by mouth four times daily. CEPHALEXIN [id number] Royce Aleman MD DIABETES MEDICATION (4 sources) Start: 04-18-2017 DIABETES MEDIC ATION as directed DIABETES MEDICATION Stuart CASAS metoprolol tartrate 25 mg oral tablet (13 sources) beta-Adrenergic Susan Start: 10-24-2022 End: 05-25-2023 Metoprolol Tartrate 25 mg tablet Discontinued 12.5 mg PO TWICE A DAY 45 October 26, 2022 3:00pm May 25, 2023 4:00pm Start: 10-24-2022 End: 05-25-2023 take 12.5 mg by mouth twice daily Metoprolol Tartrate Discontinued 12.5 MG PO TWICE A DAY October 26, 2022 2:00pm May 25, 2023 3:00pm naproxen 500 mg oral tablet (20 sources) Nonsteroidal Anti-inflammatory Drug Start: 01-11-2020 End: [...] in NaCl (PF) 0.9% 10 mL injection (ApptiveITY) predniSONE 10 mg oral tablet (20 sources) Start: 03-27-2024 End: 06-21-2024 take 4 tablets by mouth once daily, then take 3 tablets by mouth once daily, then take 2 tablets by mouth once daily, then take 1 tablet by mouth once daily Prednisone 10 mg tablet Discontinued 10 mg PO DAILY 30 March 27, 2024 12:00am June 21, 2024 [...] 20 mg PO DAILY April 24, 2020 12:00May 05, 2020 4:25pm 3 tablets daily for 3 days, then 2 tablets daily for 3 days, then 1 tablet daily for 3 days 125 ml sodium chloride 9 mg/ml prefilled syringe (12 sources) Start: 12-02-2021 End: 03-03-2023 sodium chloride 0.9 % (flush) 10 mL (BD POSIFLUSH) Tirzepatide (Mounjaro) 2.5 mg/0.5 mL pen injector (3 sources) Start: 04-19-2025 End: 06-10-2025 Tirzepatide (Mounjaro) 2.5 mg/0.5 mL pen injector Discontinued 2.5 mg SC EVERY WEEK 2 April 19, 2025 12:00am June 10, 2025 1:30pm for 4 weeks zolpidem tartrate 5 mg oral tablet (10 sources) gamma-Aminobuty farrukh Acid-ergic Agonist Start: 06-11-2020 End: 11-18-2020 take 1 tablet by mouth at bedtime as needed Zolpidem 5 MG tablet Discontinued 5 mg PO AT BEDTIME NEEDED as needed for Insomnia 14 0 June 11, 2020 12:00am November 18, 2020 4:23pm Problems Active Problems Problem Classification Problem Date Documented Date Episodic/Chronic Allergic reactions (10 sources) Irritant contact dermatitis due to plant; Translations: [Irritant contact dermatitis due to plants, except food] 02-03-2022 Episodic Cardiac dysrhythmias (20 sources) Atrial fibrillation with rapid ventricular response; Translations: [Unspecified atrial fibrillation] Onset: 07-23-2025 Chronic Conditions associated with dizziness or vertigo (10 sources) Dizziness; Translations: [Dizziness and giddiness] 02-03-2022 Episodic Diabetes mellitus with complications (1 source) Type 2 diabetes mellitus with hyperglycemia; Translations: [Type 2 diabetes mellitus with hyperglycemia] Onset: 07-17-2025 Chronic Diabetes mellitus without complication (20 sources) Type 2 diabetes mellitus without complication; Translations: [Type 2 diabetes mellitus without complications] Onset: 07-29-2015 Chronic Disorders of lipid metabolism (20 sources) Hyperlipidemia; Translations: [Hyperlipidemia, unspecified] Onset: 09-04-2015 09-04-2015 Chronic Essential hypertension (20 sources) Essential hypertension; Translations: [Essential (primary) hypertension] Onset: 05-04-2017 Resolved: 05-04-2017 07-11-2018 Chronic Fluid and electrolyte disorders (10 sources) Mild dehydration; Translations: [Dehydration] Episodic Hepatitis (13 sources) Nonalcoholic steatohepatitis; Translations: [Nonalcoholic steatohepatitis (PEÑA)] 02-03-2022 Chronic Joint disorders and dislocations; trauma-related (4 sources) Derangement of knee; Translations: [Unspecified internal derangement of left knee] Onset: 04-18-2017 04-18-2017 Chronic Nonspecific chest pain (10 sources) Chest pain; Translations: [Chest pain, unspecified] 02-03-2022 Episodic Osteoarthritis (10 sources) Bilateral osteoarthritis of knees; Translations: [Bilateral primary osteoarthritis of knee] Onset: 12-19-2024 04-04-2024 Chronic Other connective tissue disease (6 sources) Biceps tendinitis; Translations: [Bicipital tendinitis, left shoulder] 01-12-2020 Episodic Other connective tissue disease (4 sources) Bursitis of left knee; Translations: [Other bursitis of knee, left knee] 04-04-2024 Episodic Other connective tissue disease (4 sources) Bicipital tendinitis, left shoulder; Translations: [Biceps tendinitis of left upper extremity] 01-12-2020 Episodic Other liver diseases (9 sources) Non-alcoholic fatty liver; Translations: [Fatty (change of) liver, not elsewhere classified] Onset: 07-14-2016 07-14-2016 Chronic Other liver diseases (12 sources) Fatty (change of) liver, not elsewhere classified; Translations: [Other chronic nonalcoholic liver disease] Onset: 07-14-2016 07-14-2016 Chronic Other lower respiratory disease (10 sources) Dyspnea; Translations: [Shortness of breath] 02-03-2022 Episodic Other lower respiratory disease (1 source) Shortness of breath; Translations: [Shortness of breath] Episodic Other lower respiratory disease (6 sources) Hiccoughs; Translations: [Hiccough] 06-10-2023 Episodic Other non-traumatic joint disorders (2 sources) Pain in right knee; Translations: [Pain in joint, lower leg] Onset: 06-20-2025 Episodic Other non-traumatic joint disorders (1 source) Pain in unspecified knee; Translations: [Pain in unspecified knee] Onset: 06-12-2025 Episodic Other nutritional; endocrine; and metabolic disorders (20 sources) Obesity; Translations: [Other obesity due to excess calories] 07-22-2021 Chronic Other nutritional; endocrine; and metabolic disorders (1 source) Obesity, unspecified; Translations: [Obesity, unspecified] 04-18-2023 Chronic Other nutritional; endocrine; and metabolic disorders (9 sources) Obesity caused by energy imbalance; Translations: [Other obesity due to excess calories] 08-15-2023 Chronic Other screening for suspected conditions (not mental disorders or infectious disease) (11 sources) Patient encounter status; Translations: [Encounter for screening for malignant neoplasm of prostate] Onset: 07-08-2009 Resolved: 09-04-2015 Episodic Other skin disorders (10 sources) Excessive sweating; Translations: [Generalized hyperhidrosis] 02-03-2022 Episodic Residual codes; unclassified (1 source) Family history of malignant neoplasm of skin; Translations: [Family history of malignant neoplasm of other organs or systems] Episodic Screening and history of mental health and substance abuse codes (2 sources) Encounter for screening for depression; Translations: [Encounter for screening examination for other mental health and behavioral disorders] Onset: 07-23-2025 Episodic Viral infection (8 sources) Disease caused by 2019-nCoV; Translations: [COVID-19] Episodic Past or Other Problems Problem Classification Problem Date Documented Da te Episodic/Chronic Diabetes mellitus without complication (17 sources) Acute hyperglycemia; Translations: [Hyperglycemia, unspecified] Onset: 07-04-2014 Resolved: 08-04-2015 Episodic Genitourinary symptoms and ill-defined conditions (6 sources) Proteinuria; Translations: [Proteinuria, unspecified] Onset: 11-26-2024 08-22-2024 Episodic Joint disorders and dislocations; trauma-related (20 sources) Other tear of medial meniscus, current injury, left knee, initial encounter; Translations: [Tear of medial meniscus of knee] Onset: 05-20-2010 Resolved: 09-04-2015 05-13-2017 Episodic Other connective tissue disease (20 sources) Prepatellar bursitis of left knee; Translations: [Prepatellar bursitis, left knee] Onset: 02-20-2018 02-20-2018 Episodic Other connective tissue disease (20 sources) Rotator cuff arthropathy of right shoulder; Translations: [Unspecified rotator cuff tear or rupture of right shoulder, not specified as traumatic] Onset: 08-01-2019 08-01-2019 Episodic Other non-traumatic joint disorders (2 sources) Knee pain; Translations: [Pain in left knee] Onset: 05-06-2017 05-06-2017 Episodic Other nutritional; endocrine; and metabolic disorders (7 sources) Metabolic syndrome X; Translations: [Dysmetabolic syndrome X] Onset: 02-06-2008 Resolved: 08-04-2015 08-04-2015 Chronic Sprains and strains (20 sources) Injury of [...] Test Name Value Interpretation Reference Range Facility 12 Lead EKGon 07-30-2025 12 Lead EKG [facility] [address] [place] [address] 12 Lead EKG 07/30/25 0721 MR#: [id number] Acct: [id number] Name: AL GONZALEZ Rep #: [id number] : 1965 60 From: Jonathan Vale MD Attending Dr: Dr. Jose Martini DO Status: IN E SDC Ordering Dr: Jose Martini DO Date: 07/30/25 [place] [facility] [place] M C Admitted: Test Reason : PREOP Blood Pressure : */* mmHG Vent. Rate : 57 BPM Atrial Rate : 57 BPM P-R Int : 84 ms QRS Dur : 96 ms QT Int : 418 ms P-R-T Axes : 0 11 18 degrees QTcB Int : 406 ms Sinus bradycardia with short IN Otherwise normal ECG When compared with ECG of 23-Oct-2022 13:49, Sinus rhythm has replaced Ectopic atrial rhythm Nonspecific T wave abnormality, improved in Inferior leads Nonspecific T wave abnormality no longer evident in Anterolateral leads Confirmed by NELLY GONZALEZ, JONATHAN ([id number]), editorial specialist HALEY DONALD ([id number]) on 07/30/2025 1:51:02 PM Referred By: Jose Martini Confirmed By: JONATHAN VALE MD 07/30/25 1351 Date Jonathan Vale MD CC: Dr. Zach Perry MD; Dr. Jose Martini DO Signed Normal [facility] CNOVon 07-23-2025 CNOV Office Visit (FAMPWS ) AL GONZALEZ ([id number]) 1965 M Date Time Provider Department 07/23/25 1:00 PM JABIER GIRON During your visit today, we recorded the following information about you: Pulse Blood pressure Weight 66/minute 120/77 106 kg Jabier Giron, MEDICAL WRITER.VETERINARY MEAT INSPECTOR 07/23/2025 1:03 PM Signed Chief Complaint Patient presents with: Physical HPI Al Gonzalez is a 60 year old male who presents here today for Above Complaints. Patient presents for annual employment physical. Labs completed 07/19 at [facility] reviewed. Past medical history, appointments, medications, allergies reviewed. Previous Medical History PAST MEDICAL HISTORY Diagnosis Date Biceps tendon rupture bilateral s/p repair Class 1 obesity due to excess calories with serious comorbidity and body mass index (BMI) of 34.0 to 34.9 in adult DM II (diabetes mellitus, type II) ([facility]) Dr. Kike Mccoy. History of atrial fibrillation [address] Vale managing Hyperlipidemia LDL goal <100 09/04/2015 Hypertension, essential 07/11/2018 Injury of meniscus of left knee Microscopic hematuria PEÑA (nonalcoholic steatohepatitis) Proteinuria Rotator cuff tear arthropathy of both shoulders [...] on file prior to visit. Social History SOCIAL HISTORY[1] Review of Symptoms REVIEW OF SYSTEMS SEE HPI EXAM: BP 120/77 Pulse 66 Wt 106 kg (233 lb 11 oz) BMI 34.22 kg/m? General Appearance: Well appearing, alert, in no acute distress, well-hydrated, well nourished. Skin: Skin color, texture, turgor normal, no suspicious rashes or lesions. Lungs: Lungs clear to auscultation. No wheezing, rhonchi, rales.. Heart: RRR without murmur, gallop, or rubs. No ectopy. Abdomen: Normal abdominal exam, Abdomen soft, non-tender. Bowel sounds normal. No masses, organomegaly. Musculoskeletal: No joint swelling, deformity, or tenderness. Peripheral Pulses: Normal. Neurologic: Gait normal. Reflexes normal and symmetric. Sensation grossly intact.. Health Maintenance List Depression Screening Never done Anxiety Screening Never done Hepatitis B Vaccine(1 of 3 - 19+ 3-dose series) Never done Pneumococcal Vaccine: 50+(1 of 2 - PCV) Never done Urine Albumin:Creatinine Ratio due on 02/13/2019 HbA1C due on 10/13/2023 Dilated Retinal Exam due on 02/11/2024 LDL Cholesterol due on 08/09/2024 Influenza Vaccine(1) due on 07/08/2025 Diabetic Foot Exam due on 08/15/2025 Annual PCP Team Chronic Disease Visit due on 08/15/2025 Prostate Cancer Screening Discussion due on 12/24/2025 Colorectal Cancer Screening due on 08/26/2026 DTaP,Tdap,Td Vaccine(7 - Td or Tdap) due on 07/22/2031 Shingrix Vaccine Completed Hepatitis C Screening Discontinued HIV Screening Discontinued Data reviewed [facility] Labs Reviewed, WNL ASSESSMENT/PLAN: 1. Annual physical exam - ICD9: V70.0, ICD10: Z00.00 (primary diagnosis) - Counseled on healthy diet and regular exercise - Discussed need for and benefit of weight loss. BMI 34.22 kg/(m2) - Follow up for annual exam in one year 2. Type 2 diabetes mellitus without complication, without long-term current use of insulin (HCC) - ICD9: 250.00, ICD10: E11.9 - Controlled - Continue current medications - Counseled on healthy diet and regular exercise - Discussed need for and benefit of weight loss. BMI 34.22 kg/(m2) 3. Hyperlipidemia LDL goal <1 (more content not included)... Normal [facility] CBC, Employeeon 07-19-2025 Absolute Lymph 1.96 X10 3/uL Normal 0.83-4.51 [facility] Comment on above: Performed By: #### L 506.1001, L501.9520, L501.9910, L502.0250 #### [facility] Laboratory [address] [place], [address] Absolute Neut 3.5 X10 3/uL Normal 2.0-7.7 [facility] Comment on above: Performed By: #### L 506.1001, [id number], L501.9910, L502.0250 #### [facility] [address] [place], [address] Basophils/100 WBC (Bld) 0.9 % Normal 0-1 [facility] Comment on above: Performed By: #### L 506.1001, [id number], L501.9910, L502.0250 #### [facility] [address] [place], [address] Eosinophils/100 WBC (Bld) 5.3 % High 0-5 [facility] Comment on above: Performed By: #### L 506.1001, [id number], L501.9910, L502.0250 #### [facility] [address] [place], [address] Erythrocyte distribution width (RBC) [Ratio] 12.7 % Normal 11.6-14.6 [facility] Comment on above: Performed By: #### L 506.1001, [id number], L501.9910, L502.0250 #### [facility] [address] [place], [address] Hematocrit (Bld) [Volume fraction] 42.1 % Normal 40-54 [facility] Comment on above: Performed By: #### L 506.1001, [id number], L501.9910, L502.0250 #### [facility] [address] [place], [address] Hemoglobin (Bld) [Mass/Vol] 14.7 g/dL Normal 13.0-16.5 [facility] Comment on above: Performed By: #### L 506.1001, [id number], L501.9910, L502.0250 #### [facility] [address] [place], [address] Lymphocytes/100 WBC (Bld) 29.9 % Normal 19-41 [facility] Comment on above: Performed By: #### L 506.1001, [id number], L501.9910, L502.0250 #### [facility] [address] [place], [address] MCH (RBC) [Entitic mass] 30.9 pg Normal 27.0-32.0 [facility] Comment on above: Performed By: #### L 506.1001, [id number], L501.9910, L502.0250 #### [facility] [address] [place], [address] MCHC (RBC) [Mass/Vol] 34.9 g/dL Normal 32-36 [facility] Comment on above: Performed By: #### L 506.1001, [id number], L501.9910, L502.0250 #### [facility] [address] [place], [address] MCV (RBC) [Entitic vol] 88.6 fL Normal 80-94 [facility] Comment on above: Performed By: #### L 506.1001, L501.9520, L501.9910, L502.0250 #### [facility] [address] [place], [address] Monocytes/100 WBC (Bld) 10.5 % High 0-10 [facility] Comment on above: Performed By: #### L 506.1001, L501.9520, L501.9910, L502.0250 #### [facility] [address] [place], [address] Neutrophils/100 WBC (Bld) 52.9 % Normal 47-70 [facility] Comment on above: Performed By: #### L 506.1001, L501.9520, L501.9910, L502.0250 #### [facility] [address] [place], [address] NRBC # 0.00 10 3/uL Normal 0-5 [facility] Comment on above: Performed By: #### L 506.1001, L501.9520, L501.9910, L502.0250 #### [facility] [address] [place], [address] Nucleated RBC (Bld) [#/Vol] 0 10*3/uL Normal 0-5 [facility] Comment on above: Performed By: #### L 506.1001, L501.9520, L501.9910, L502.0250 #### [facility] [address] [place], [address] Platelet mean volume (Bld) [Entitic vol] 9.0 fL Normal 6.2-12.0 [facility] Comment on above: Performed By: #### L 506.1001, L501.9520, L501.9910, L502.0250 #### [facility] [address] [place], [address] Platelets (Bld) [#/Vol] 301 10*3/uL Normal 150-450 [facility] Comment on above: Performed By: #### L 506.1001, L501.9520, L501.9910, L502.0250 #### [facility] [address] [place], [address] RBC (Bld) [#/Vol] 4.75 10*6/uL Normal 4.6-6.2 [facility] Comment on above: Performed By: #### L 506.1001, L501.9520, L501.9910, L502.0250 #### [facility] [address] [place], [address] RDW SD 41.8 fl Normal 35.1-43.9 [facility] Comment on above: Performed By: #### L 506.1001, L501.9520, L501.9910, L502.0250 #### [facility] [address] [place], [address] WBC (Bld) [#/Vol] 6.6 10*3/uL Normal 4.4-11.0 [facility] Comment on above: Performed By: #### L 506.1001, L501.9520, L501.9910, L502.0250 #### [facility] [address] [place], [address] Comprehensive Metabolic Prof ilon 07-19-2025 ALB Normal 3.5-5.0 [facility] Comment on above: Result Comment: DUPL ICATE Performed By: #### L 506.1001, L501.9520, L501.9910, L502.0250 #### [facility] [address] [place], [address] ALK PHOS Normal 40-129 [facility] Comment on above: Result Comment: DUPL ICATE Performed By: #### L 506.1001, L501.9520, L501.9910, L502.0250 #### [facility] [address] [place], [address] ALT Normal <=46 [facility] Comment on above: Result Comment: DUPL ICATE Performed By: #### L 506.1001, L501.9520, L501.9910, L502.0250 #### [facility] [address] [place], [address] AST Normal <=37 [facility] Comment on above: Result Comment: DUPL ICATE Performed By: #### L 506.1001, L501.9520, L501.9910, L502.0250 #### [facility] [address] [place], [address] BUN Normal 4-19 [facility] Comment on above: Result Comment: DUPL ICATE Performed By: #### L 506.1001, L501.9520, L501.9910, L502.0250 #### [facility] [address] [place], [address] BUN/CRE Normal 10-20 [facility] Comment on above: Result Comment: DUPL ICATE Performed By: #### L 506.1001, L501.9520, L501.9910, L502.0250 #### [facility] [address] [place], [address] Calcium Normal 7.6-11.0 [facility] Comment on above: Result Comment: DUPL ICATE Performed By: #### L 506.1001, L501.9520, L501.9910, L502.0250 #### [facility] [address] [place], [address] CL Normal 98-108 [facility] Comment on above: Result Comment: DUPL ICATE Performed By: #### L 506.1001, L501.9520, L501.9910, L502.0250 #### [facility] [address] [place], [address] CO2 Normal 21.0-32.0 [facility] Comment on above: Result Comment: DUPL ICATE Performed By: #### L 506.1001, L501.9520, L501.9910, L502.0250 #### [facility] [address] [place], [address] CREAT,SERUM Normal 0.70-1.20 [facility] Comment on above: Result Comment: DUPL ICATE Performed By: #### L 506.1001, L501.9520, L501.9910, L502.0250 #### [facility] [address] [place], [address] eGFR Normal >60 [facility] Comment on above: Result Comment: DUPL ICATE Performed By: #### L 506.1001, L501.9520, L501.9910, L502.0250 #### [facility] [address] [place], [address] GAP Normal 5-15 [facility] Comment on above: Result Comment: DUPL ICATE Performed By: #### L 506.1001, L501.9520, L501.9910, L502.0250 #### [facility] [address] [place], [address] GLU Normal 70-99 [facility] Comment on above: Result Comment: DUPL ICATE Performed By: #### L 506.1001, L501.9520, L501.9910, L502.0250 #### [facility] [address] [place], [address] Potassium Normal 3.3-5.1 [facility] Comment on above: Result Comment: DUPL ICATE Performed By: #### L 506.1001, L501.9520, L501.9910, L502.0250 #### [facility] [address] [place], [address] T BILI Normal 0.00-1.30 [facility] Comment on above: Result Comment: DUPL ICATE Performed By: #### L 506.1001, L501.9520, L501.9910, L502.0250 #### [facility] [address] [place], [address] T PROT Normal 5.9-8.4 [facility] Comment on above: Result Comment: DUPL ICATE Performed By: #### L 506.1001, L501.9520, L501.9910, L502.0250 #### [facility] [address] [place], [address] Comprehensive Metabolic Profil Normal 133-145 [facility] Comment on above: Result Comment: DUPL ICATE Performed By: #### L 506.1001, L501.9520, L501.9910, L502.0250 #### [facility] [address] [place], [address] Employee [employer] 5 CHOL:HDL 3.79 Normal [facility] Comment on above: Order Comment: SEND LIPID,CMP DO EMIGDIO LOU Performed By: #### L 506.1001, L501.9520, L501.9910, L502.0250 #### [facility] [address] [place], [address] Cholesterol [Mass/Vol] 138 mg/dL Normal <=200 [facility] Comment on above: Order Comment: SEND LIPID,CMP DO EMIGDIO LOU Result Comment: Chol esterol level, Desirable <200 mg/dL Borderline high cholesterol 200-239 mg/dL High cholesterol >=240 mg/dL Recommendations of the NCEP Adult Treatment Panel for the following risk-cutoff thresholds for the [place] population. Performed By: #### L 506.1001, L501.9520, L501.9910, L502.0250 #### [facility] [address] [place], [address] Cholesterol in HDL [Mass/Vol] 36 mg/dL Low [facility] Comment on above: Order Comment: SEND LIPID,CMP DO EMIGDIO BLAKE Result Comment: Holly onal Cholesterol Education Program (NCEP) guidelines: <40 mg/dL: Low HDL-cholesterol (major risk factor for CHD) >= 60 mg/dL: High HDL-cholesterol (negative risk factor for CHD) HDL-cholesterol is affected by a number of factors, e.g. smoking, exercise, hormones, sex and age. Performed By: #### L 506.1001, L501.9520, L501.9910, L502.0250 #### [facility] [address] [place], [address] Cholesterol in LDL [Mass/Vol] 76 mg/dL Normal [facility] Comment on above: Order Comment: SEND LIPID,AUBREE VALADEZ Result Comment: Bord rubytm=391-204 mg/dL Higher Fips=564 mg/dL or greater Friedwald Equation for LDL-C Performed By: #### L 506.1001, L501.9520, L501.9910, L502.0250 #### [facility] [address] [place], [address] Cholesterol in VLDL [Mass/Vol] 26 mg/dL Normal 5-40 [facility] Comment on above: Order Comment: SEND LIPID,AUBREE VALADEZ Performed By: #### L 506.1001, L501.9520, L501.9910, L502.0250 #### [facility] [address] [place], [address] Triglyceride [Mass/Vol] 128 mg/dL Normal [facility] Comment on above: Order Comment: SEND LIPID,CMP DO EMIGDIO LOU Result Comment: The drugs N-Acetylcysteine and Metamizole may falsely depress this assay. Normal range: <150 mg/dL Borderline High: 150-199 mg/dL High: 200-499 mg/dL Very High: >500 mg/dL Performed By: #### L 506.1001, L501.9520, L501.9910, L502.0250 #### [facility] [address] [place], [address] URIC 6.3 mg/dL Normal 3.5-7.2 [facility] Comment on above: Order Comment: SEND LIPID,CMP DO EMIGDIO LOU Result Comment: The drugs N-Acetylcysteine and Metamizole may falsely depress this assay. Performed By: #### L 506.1001, L501.9520, L501.9910, L502.0250 #### [facility] [address] [place], [address] Lipid Profileon 07-19-2025 CHOL Normal <=200 [facility] Comment on above: Result Comment: DUPL ICATE Performed By: #### L 506.1001, L501.9520, L501.9910, L502.0250 #### [facility] [address] [place], [address] CHOL:HDL Normal [facility] Comment on above: Result Comment: DUPL ICATE Performed By: #### L 506.1001, L501.9520, L501.9910, L502.0250 #### [facility] [address] [place], [address] CLDL Normal [facility] Comment on above: Result Comment: DUPL ICATE Performed By: #### L 506.1001, L501.9520, L501.9910, L502.0250 #### [facility] [address] [place], [address] HDL Normal [facility] Comment on above: Result Comment: DUPL ICATE Performed By: #### L 506.1001, L501.9520, L501.9910, L502.0250 #### [facility] [address] [place], [address] TRIG Normal [facility] Comment on above: Result Comment: DUPL ICATE Performed By: #### L 506.1001, L501.9520, L501.9910, L502.0250 #### [facility] [address] [place], [address] VLDL Normal 5-40 [facility] Comment on above: Result Comment: DUPL ICATE Performed By: #### L 506.1001, L501.9520, L501.9910, L502.0250 #### [facility] [address] [place], [address] Microalb:Creat Ratio,Random URon 07-19-2025 Creatinine [Mass/Vol] 304.00 mg/dL High 39.00- 259.0 0 [facility] Comment on above: Performed By: #### L 506.1001, L501.9520, L501.9910, L502.0250 #### [facility] [address] [place], [address] MALB:CREAT UNABLE TO CALCULATE Normal <30 mg/g CRE [facility] Comment on above: Performed By: #### L 506.1001, L501.9520, L501.9910, L502.0250 #### [facility] [address] [place], [address] MICROALBUMIN,UR < 12.0 Normal <20 mg/L [facility] Comment on above: Performed By: #### L 506.1001, L501.9520, L501.9910, L502.0250 #### [facility] [address] [place], [address] PSA,Total - Annual Screenon 07-19-2025 PSA,TOT SCREEN 0.34 ng/mL Normal 0.02-4.00 [facility] Comment on above: Result Comment: This test was performed using the [employer] tPSA method. Measured values of a patient??sample can vary depending on the testing procedure used. PSA values determined on patient samples by different testing procedures cannot be used interchangeably. If there is a change in PSA assays while monitoring therapy, sequential testing should be performed to confirm baseline values. Performed By: #### L 506.1001, L501.9520, L501.9910, L502.0250 #### [facility] [address] [place], [address] Thyroid Stim Hormone (TSH)on 07-19-2025 TSH 1.700 uIU/mL Normal 0.300-4.200 [facility] Comment on above: Performed By: #### L 506.1001, L501.9520, L501.9910, L502.0250 #### [facility] [address] [place], [address] Urinalysis, Employeeon 07-19 BILIRUBIN URINE Negative Normal Negative [facility] Comment on above: Order Comment: Urine , Random Performed By: #### L 506.1001, L501.9520, L501.9910, L502.0250 #### [facility] [address] [place], [address] Clarity (U) Clear Normal Clear [facility] Comment on above: Order Comment: Urine , Random Performed By: #### L 506.1001, L501.9520, L501.9910, L502.0250 #### [facility] [address] [place], [address] Color (U) Yellow Normal Yellow [facility] Comment on above: Order Comment: Urine , Random Performed By: #### L 506.1001, L501.9520, L501.9910, L502.0250 #### [facility] [address] [place], [address] GLUCOSE, UR Normal Normal Normal [facility] Comment on above: Order Comment: Urine , Random Performed By: #### L 506.1001, L501.9520, L501.9910, L502.0250 #### [facility] [address] [place], [address] KETONE UR 5 mg/dl Abnormal Negative [facility] Comment on above: Order Comment: Urine , Random Performed By: #### L 506.1001, L501.9520, L501.9910, L502.0250 #### [facility] [address] [place], [address] LEUK ESTERASE Negative Normal Negative [facility] Comment on above: Order Comment: Urine , Random Performed By: #### L 506.1001, L501.9520, L501.9910, L502.0250 #### [facility] [address] [place], [address] Nitrite Ql (U) Negative Normal Negative [facility] Comment on above: Order Comment: Urine , Random Performed By: #### L 506.1001, L501.9520, L501.9910, L502.0250 #### [facility] [address] [place], [address] OCCULT BLOOD-UR Negative Normal Negative [facility] Comment on above: Order Comment: Urine , Random Performed By: #### L 506.1001, L501.9520, L501.9910, L502.0250 #### [facility] [address] [place], [address] pH UR 5.0 Normal 5.0 - 8.0 [facility] Comment on above: Order Comment: Urine , Random Performed By: #### L 506.1001, L501.9520, L501.9910, L502.0250 #### [facility] [address] [place], [address] PROT DIPSTX 30 mg/dl Abnormal Negative [facility] Comment on above: Order Comment: Urine , Random Performed By: #### L 506.1001, L501.9520, L501.9910, L502.0250 #### [facility] [address] [place], [address] SP.GR. DIPSTX 1.020 Normal 1.002-1.030 [facility] Comment on above: Order Comment: Urine , Random Performed By: #### L 506.1001, L501.9520, L501.9910, L502.0250 #### [facility] [address] [place], [address] UROBILI Normal Normal Normal [facility] Comment on above: Order Comment: Urine , Random Performed By: #### L 506.1001, L501.9520, L501.9910, L502.0250 #### [facility] [address] [place], [address] Vitamin D,25 Hydroxyon 07-19 Vitamin D 25-OH 23.2 ng/mL Low 30-100 [facility] Comment on above: Result Comment: Madiha min D Status Deficiency: <20 ng/mL (50nmol/L) Insufficiency: 20-30 ng/mL (50-75 nmol/L) Sufficiency: 30-100 ng/mL (75-250 nmol/L) Toxicity: >100 ng/mL (>250 nmol/L) Performed By: #### L 506.1001, L501.9520, L501.9910, L502.0250 #### [facility] [address] [place], [address] Endocrinology Visit Reporton 07-17-2025 Endocrinology Visit Report [facility] [address] [place], [place] [address] OFFICE VISIT Date of Service: 07/17/25 MR#: [id number] Acct: [id number] Name: AL GONZALEZ Rep #: [id number] : 1965 Provider: FRITZ acosta Age/Sex: 60/M Location: [facility] [place] Status: Signed Intake Vital Signs 04/16/25 15:21 06/12/25 15:32 07/17/25 14:07 Height 5 ft 10 in 5 ft 10 in 5 ft 10 in Weight: 242 lb 6 oz 235 lb BMI 34.7 33.7 BP 144/83 H 126/81 H Blood Pressure Location Rt brachial Lt brachial Position Sitting Sitting Pulse 85 85 Pulse Source Monitor Monitor Pulse Oximetry (%) 93 93 Oxygen Delivery Method room air room air Intake Visit Reasons: 3 M FU Chief Complaint: f/u diabetes Body Team Member Required: No Accompanied by: Self Is patient in pain?: No Allergies lisinopril Adverse Reaction (Intermediate, Verified 07/17/25 14:07) Dry Cough Medications ???Medication ???Instructions ???Recorded ???Confirmed ???Type hydrochlorothiazide 12.5 mg capsule 12.5 mg PO QDAY #90 caps 07/17/25 Rx losartan 50 mg tablet 50 mg PO DAILY 90 days #90 tabs 07/17/25 Rx atorvastatin 40 mg tablet 40 mg PO DAILY #90 tabs 05/29/25 0 07/17/25 Rx metformin 1,000 mg tablet 1,000 mg PO BIDWMEAL #180 tabs 03/0107/17/25 Rx tirzepatide 5 mg/0.5 mL 5 mg (0.5 mL) subcut QWEEK #6 mL 0 06/10/25 07/17/25 Rx subcutaneous pen injector (Mounjaro) [facility] Medical History Diabetes Obesity COVID Acute hyperglycemia [...] times a month HPI HPI Chief Complaint: f/u diabetes Details: AL GONZALEZ, is a 60 M who presents to the office today for evaluation and management of diabetes. A1C today is 6.4%, improved from 04/16/25 at 7.8%, he has lost 7 lbs since that time. Currently taking Mounjaro 5 mg qweek- tolerating well and metformin 1 gm BID with food. He admits that he frequently misses evening dose of metformin. BP is controlled. Currently taking HCTZ 12.5 mg once daily and losartan 50 mg once daily. He is taking a daily statin. He is due for routine labs. He is awaiting surgical date for knee replacement. Denies any acute concerns. ROS Const Constitutional: No fatigue, weakness, weight change or change in appetite Eyes Eyes: No change in vision ENT ENT: No hearing loss, nasal congestion or difficulty swallowing Cardio Cardiology: No chest pain at rest, chest pain with exertion or shortness of breath Musc Musculoskeletal: Positive for joint pain; No numbness Neuro Neurology: No weakness, memory loss or numbness Psych Psychiatric: No change in appetite, No memory loss and No Thoughts of harming yourself/Others Resp Respiratory: No cough or chest congestion Gastro GI: No difficulty swallowing Genitourinary Male: No burning urination Skin Skin: No itchy eyes or wounds Endo Endocrine: No fatigue or weight change Aller/Imm Allergy/Immunologic: No itchy eyes Exam Const General: cooperative, healthy appearing, comfortable and no acute distress Nutritional Appearance: obese Orientation: alert, awake and oriented x3 HENMT Head: normal to inspection Ears: hearing grossly normal bilaterally Nose: external nose normal Face and sinus: normal facial exam Eyes General: appearance normal, both eyes and all related structures Alignment and Position: alignment normal Sclera: sclerae normal Neck Neck: normal visual inspection Chest Chest palpation inspection: normal inspection of the chest Resp Effort Inspection: normal respiratory effort, able to speak in complete sentences, symmetric chest movement, normal respiratory pattern, no audible wheezes and no cough Auscultation: Bilateral: Clear to Auscultation Cardio Rate: regular rate Rhythm: regular rhythm Heart Sounds: S1 normal and S2 normal GI Inspection: obesity Musc Cervical Spine: normal cervical lordosis Thoracic/Lumbar Spine: t (more content not included)... Normal [facility] Knee 4 or More Viewson 06-12 Knee 4 or More Views [facility] [address] [place], [place] [address] Knee 4 or More Views MR#: [id number] Acct: [id number] Name: AL GONZALEZ Rep #: [id number] : 1965 M 60 From: Pineda gaviria MD PCP: Dr. Zach Perry MD Status: REG CLI Study: Knee 4 or More Views Date of Exam: 06/12/25 Exam# [id number] Ordering Dr: Jose Martini DO PROCEDURE: KNEE 4 OR MORE VIEWS 06/12/2025 REASON FOR EXAM: KNEE PAIN TECHNIQUE: KNEE 4 OR MORE VIEWS COMPARISON: Radiographs on 04/04/2024. FINDINGS: Moderate tricompartmental changes of degenerative joint disease, more prominent in the medial tibiofemoral compartment, progressed. Chondrocalcinosis is unchanged. Chronic fragmentation of the tibial tuberosity, unchanged. Mild osteopenia of the visualized bones. Degenerative joint disease. No fracture or dislocation is seen. No lytic or blastic bone lesion is noted. RAD/Knee 4 or More Views IMPRESSION: Degenerative joint disease. Reading Location: [place] [address] CC: Dr. Zach Perry MD; Dr. 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 Zach Perry MD Status: REG CLI Study: Knee 4 or More Views Date of Exam: 06/12/25 Exam# [id number] Ordering Dr: Jose Martini DO PROCEDURE: KNEE 4 OR MORE VIEWS 06/12/2025 REASON FOR EXAM: KNEE PAIN TECHNIQUE: KNEE 4 OR MORE VIEWS COMPARISON: 04/04/2024 FINDINGS: Mild medial femorotibial joint space narrowing. Fragmented tibial tuberosity. Small osteophytes. No acute bone or soft tissue pathology. RAD/Knee 4 or More Views IMPRESSION: Mild right knee osteoarthritis. Possible history of Meeteetse-Schlatter disease. Reading Location: [place] [address] CC: Dr. Zach Perry MD; Dr. 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 Jose lloyd DO Age/Sex: 60/M Location: [facility] [place] Status: Signed Intake Vital Signs 04/16/25 15:21 06/12/25 15:32 Height 5 ft 10 in 5 ft 10 in Weight: 242 lb 6 oz 236 lb 4 oz BMI 34.7 33.9 BP 144/83 H Blood Pressure Location Rt brachial Position Sitting Pulse 85 Pulse Source Monitor Pulse Oximetry (%) 93 Oxygen Delivery Method room air Intake Visit Reasons: BL KNEES Chief Complaint: Bilateral Knee Pain Accompanied by: Is patient in pain?: Yes Pain scale (1-10): 4 Allergies lisinopril Adverse Reaction (Intermediate, Verified 06/12/25 15:33) Dry Cough Medications ???Medication ???Instructions ???Recorded ???Confirmed ???Type hydrochlorothiazide 12.5 mg capsule 12.5 mg PO QDAY #90 caps 06/12/25 Rx losartan 50 mg tablet 50 mg PO DAILY 90 days #90 tabs 06/12/25 Rx atorvastatin 40 mg tablet 40 mg PO DAILY #90 tabs 05/29/25 0 06/12/25 Rx metformin 1,000 mg tablet 1,000 mg PO BIDWMEAL #180 tabs 03/0106/12/25 Rx tirzepatide 5 mg/0.5 mL 5 mg (0.5 mL) subcut QWEEK #6 mL 0 06/10/25 06/12/25 Rx subcutaneous pen injector (Mounjaro) [facility] Medical History Diabetes Obesity COVID Acute hyperglycemia [...] frequency: a few times a month HPI BL KNEES Details: This documentation accurately reflects the service provided and the decisions made by me, Dr. Jose Martini, DO 06/12/25928. Part of today???s visit was documented by Rossi Malhotra ATC, acting as scribe. AL GONZALEZ is a 60 year old M here today for bilateral knee pain. Patient would like to talk about his options and what his next steps would be. Patient finished Euflexxa injections on 12/19/2024 and he states they give him maybe a week of relief. He states lately both knees have been hurting equally. He states it depends on what he is doing and at the time which one bothers him more. Patient applies voltaren gel to the knee and was taking naproxen. He denies any recent falls or injuries. Patient states the knees have been popping a lot and it feels better when he gets moving. He has trouble getting up from a seated position and has to try to pop the knees first before moving. His states that is affecting his quality of life he cannot go on walks and do the things that she wants to do. He is hoping to retire by the end of next year and wants to have surgery before his work is done if he needs it. 12/19/2024 visit:3rd bilateral knee Euflexxa injection. Patient states that he has noticed improvement with the injections. 04/04/2020 for visit:58 year old M here today for bilateral knee pain. He has had pain in his knees for years. He has had an injury of his right knee when he was in college and he this did require casting but no prior surgery. Describes location of the pain is mostly posterior lateral over the hamstring as well as medial and anterior knee. He does have some mechanical symptoms at times. He does wear a copper fit brace on the right knee which helps he has also noticed swelling of the anterior left knee which she has had for years consistent with bursitis. 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 Patient denies any injections or physical therapy for the knees. He states he does workout at [employer] and tries to bike and work on the knees but they bother him the next day. Patient describes the pain along the right knee medial side as well as posterior knee, the left knee is posterior knee and medial and lateral sides. Patient denies any numbness or tingling that goes down the legs . He states the knees have given out on him when walking. He states he takes A (more content not included)... Normal [facility] Endocrinology Visit Reporton 04-16-[address] [facility] [facility] [place] [address] OFFICE VISIT Date of Service: 04/16/25 MR#: [id number] Acct: [id number] Name: AL GONZALEZ Rep #: [id number] : 1965 Provider: Gilmer Mcqueen Age/Sex: 60/M Location: [facility] Status: Signed Intake Vital Signs 06/21/24 15:33 04/16/25 15:21 Height 5 ft 10 in 5 ft 10 in Weight: 242 lb 6 oz BMI 34.7 BP 144/83 H Blood Pressure Location Rt brachial Position Sitting Pulse 85 Pulse Source Monitor Pulse Oximetry (%) 93 Oxygen Delivery Method room air Intake Visit Reasons: 10 M FU, NS 12/21 Chief Complaint: Diabetes Is patient in [...] nourished Orientation: alert, awake and oriented x3 HENMO Head: normal to inspection Ears: hearing grossly [...] Diabetes mellitus type: type 2 Diabetes mellitus care home insulin use: without care home use Diabetes mellitus complication status: with hyperglycemia Qualified Code(s): E11.65 - Type 2 diabetes mellitus with hyperglycemia P (more content not included)... Normal [facility] - Hematology and Cell countsOrdered By: Kike Mccoy on 04-16-2025 HbA1c (Bld) [Mass fraction] 7.8 % High 4.2-6.3 [facility] Orthopedic Visit Reporton Orthopedic Visit Report [facility] [address] [place] [address] [address] [place] [address] OFFICE VISIT Date of Service: 12/19/24 MR#: [id number] Acct: [id number] Name: AL GONZALEZ Rep #: [id number] : 1965 Provider: Dr. Jose lloyd DO Age/Sex: 59/M Location: [facility] [place] Status: Signed Intake Vital Signs 06/21/24 15:33 [...] decisions made by me, Dr. Jose Martini, 12/19/24 0756. Part of today???s visit was [...] Performing Provider: Jose Martini DO Performing Location: [facility] Administered by: Jose Martini DO on 12/19/24 15:51 Dose Route Admin Location Dispensed Lot Number Expiration Date NVC Man ufacturer 40 mg intra-articular bilateral knee 4 mL [id number] 10/22/25 [address]-9 [employer] Supplemental Info 04/04/2024 x-ray right knee: There is moderate patellofemoral arthrosis with lateral patellar tracking and spurring there is moderate joint space narrowing on flexion view medially 04/04/2024 x-ray left knee advanced medial compartment narrowing on flexion view there is moderate patellofemoral arthrosis and moderate narrowing on the AP view medial Coding Level of Care Code Attention Bry Diagnoses Primary osteoarthritis of both knees M17.0 Osteoarthritis type: primary CPT Codes Euflexxa Procedure - Euflexxa Charge: Yes () Assessment and Plan Assessment and Plan (1) Osteoarthritis of knees, bilateral: Status: Acute Qualifiers: Osteoarthritis type: primary Qualified Code(s): M17.0 - Bilateral (more content not included)... Normal [facility] Orthopedic Visit Reporton Orthopedic Visit Report [facility] [address] [place] [address] OFFICE VISIT Date of Service: 12/12/24 MR#: [id number] Acct: [id number] Name: AL GONZALEZ Rep #: [id number] : 1965 Provider: Dr. Jose lloyd DO Age/Sex: 59/M Location[place] [facility] [place] Status: Signed Intake Vital Signs 06/21/24 15:33 [...] mg PO QDAY #90 caps 12/12/24 Rx [facility] Medical History Diabetes Obesity COVID Acute hyperglycemia [...] 1605 Date (more content not included)... Normal [facility] Orthopedic Visit Reporton Orthopedic Visit Report [facility] [address] [place] [address] OFFICE VISIT Date of Service: 12/05/24 MR#: [id number] Acct: [id number] Name: AL GONZALEZ Rep #: [id number] : 1965 Provider: Dr. Jose lloyd DO Age/Sex: 59/M Location: [facility] Status: Signed [...] decisions made by me, Dr. Jose Martini, 12/05/24 0839. Part of today???s visit was [...] Performing Provider: Jose Martini DO Performing Location: [facility] Administered by: Jose Martini DO on 12/05/24 15:50 Dose Route Admin Location Dispensed Lot Number Expiration Date 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 Normal [facility] CNPNon 11-08-2024 [facility] AL GONZALEZ ([id number]) 1965 M Date Time Provider Department 11/08/24 JEFF PERRY [facility] During your visit today, we recorded the following information about you: Ju Iverson LPN 11/08/2024 11:25 AM Signed Patient calling, states he had his US on 11/03 at [facility]. 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 Ivory Taveras RN Allergies As [...] Encounter Status:Closed by IVORY TAVERAS on 11/08/24 [facility]ney and Bladderon 024 Kidney and Bladder [facility] Imaging Services [address] [place], [place] [address] Kidney and Bladder MR#: [id number] Acct: [id number] Name: AL GONZALEZ Rep #: [id number] : 1965 M 59 From: Colby Michael MD PCP: Dr. Zach Perry MD Status: REG CLI Study: Kidney and Bladder Date of Exam: 11/03/24 Exam# [id number] Ordering Dr: Zach Perry [id number] STUDY: RENAL ULTRASOUND - COMPLETE REASON FOR [...] EST , CC: Dr. 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 Protein is likely 2/2 diabetes. Will check US of kidneys for further workup. Belle Abdi LPN 10/30/2024 12:02 PM Signed Phoned patient and reviewed results with him. Patient voiced understanding and he requested order be sent to [facility]. He will contact them for scheduling after Norytom Abdi LPN Allergies As of Date: 10/30/2024 Noted Allergy Reaction NO KNOWN DRUG ALLERGIES 11/15/2005 Date Reviewed: 08/15/2024 Reviewed by: Tish Sharma LPN - Fully Assessed Reason for Visit: Results [95] Primary Visit Diagnosis:Proteinuria, unspecified type [R80.9] Order(s):US KIDNEY/BLADDER [[id number]] Order #: [id number] FUTURE Prescriptions as of 10/30/2024 - losartan [...] Status:Closed by BELLE ABDI on 10/30/24 Normal [facility] Urinalysis, Completeon 10-22 RBC 0-5 SEEN Normal 0-5 [facility] Comment on above: Order Comment: Urine , Random Performed By: #### L 506.1001, L501.9520, L501.9910, L502.0250 #### [facility] Laboratory [address] [place], [address] BACTERIA 0 SEEN Normal None Seen [facility] Comment on above: Order Comment: Urine , Random Performed By: #### L 506.1001, L501.9520, L501.9910, L502.0250 #### [facility] [address] [place], [address] EPI,SQUAMOUS 0 SEEN Normal 0-5 [facility] Comment on above: Order Comment: Urine , Random Performed By: #### L 506.1001, L501.9520, L501.9910, L502.0250 #### [facility] [address] [place], [address] Mucus Ql (Urine sed) 0 SEEN Normal [facility] Comment on above: Order Comment: Urine , Random Performed By: #### L 506.1001, L501.9520, L501.9910, L502.0250 #### [facility] [address] [place], [address] WBC 0 SEEN Normal 0-5 [facility] Comment on above: Order Comment: Urine , Random Performed By: #### L 506.1001, L501.9520, L501.9910, L502.0250 #### [facility] [address] [place], [address] [facility] Telephone ([facility]) AL GONZALEZ ([id number]) 1965 Date Time Provider Department 08/22/24 JEFF PERRYPMONIKA During your visit today, we recorded the following information about you: Jeff Perry MD 08/22/2024 12:08 PM Signed Labs completed at [facility] on 08/13 shows controlled DM [...] Lab for future ua was faxed to [facility]. Allergies As of Date: 08/22/2024 Noted Allergy Reaction NO KNOWN DRUG ALLERGIES 11/15/2005 Date Reviewed: 08/15/2024 Reviewed by: Tish Sharma LPN - Fully Assessed Reason for Visit: Results [95] Primary Visit Diagnosis:Proteinuria, unspecified type [R80.9] Order(s):URINALYSIS, WITH MICROSCOPIC [SQUAWMIC] Order #: [id number] FUTURE Prescriptions as of 09/26/2024 - losartan [...] Encounter Status:Closed by JEFF PERRY on 09/26/24 [facility] CNOVon 08-15-2024 CNOV Office Visit ([facility] ) AL GONZALEZ ([id number]) 1965 M Date Time Provider Department 08/15/24 5:00 PM CHARU PÉREZ During your visit today, we recorded the following information about you: Pulse Respiration Blood pressure Weight 81/minute 18/minute 132/84 109.5 kg Charu Pérez APRN.CNP 08/15/2024 4:56 PM Signed 08/15/2024 Patient presents with: Results: Needs form for work completed SUBJECTIVE: This is a 59 year old that is here today for Above Complaints. DIABETES MELLITUS: Follows with [facility] endocrinology with last appointment last [...] month per patient Atrial fib: follows with [facility] cardiology office visit on 02/21/2024. [...] II (diabetes mellitus, type II) ([facility]) Dr. Kike Mccoy. History of atrial [...] Vaccine(3 - (more content not included)... Normal [facility] CBC W/Diff, Automatedon 10-0 Absolute Lymph 1.40 X10 3/uL Normal 0.83-4.51 [facility] Comment on above: Performed By: #### L 500.4100, L500.4050, L100.0100, L501.9985, L501.9940 #### [facility] [address] [place], [address] Absolute Neut 2.2 X10 3/uL Normal 2.0-7.7 [facility] Comment on above: Performed By: #### L 500.4100, L500.4050, L100.0100, L501.9985, L501.9940 #### [facility] [address] [place], [address] Basophils/100 WBC (Bld) 1.1 % High 0-1 [facility] Comment on above: Performed By: #### L 500.4100, L500.4050, L100.0100, L501.9985, L501.9940 #### [facility] [address] [place], [address] Eosinophils/100 WBC (Bld) 7.4 % High 0-5 [facility] Comment on above: Performed By: #### L 500.4100, L500.4050, L100.0100, L501.9985, L501.9940 #### [facility] [address] [place], [address] Erythrocyte distribution width (RBC) [Ratio] 13.0 % Normal 11.6-14.6 [facility] Comment on above: Performed By: #### L 500.4100, L500.4050, L100.0100, L501.9985, L501.9940 #### [facility] [address] [place], [address] Hematocrit (Bld) [Volume fraction] 41.2 % Normal 40-54 [facility] Comment on above: Performed By: #### L 500.4100, L500.4050, L100.0100, L501.9985, L501.9940 #### [facility] [address] [place], [address] Hemoglobin (Bld) [Mass/Vol] 13.6 g/dL Normal 13.0-16.5 [facility] Comment on above: Performed By: #### L 500.4100, L500.4050, L100.0100, L501.9985, L501.9940 #### [facility] [address] [place], [address] IG% 0.200 Normal 0.0-0.9 [facility] Comment on above: Result Comment: IG% - Immature Granulocytes (promyelocytes, myelocytes and metamyelocytes) > 1% indicates that a LEFT SHIFT is Present. Performed By: #### L 500.4100, L500.4050, L100.0100, L501.9985, L501.9940 #### [facility] [address] [place], [address] Lymphocytes/100 WBC (Bld) 31.3 % Normal 19-41 [facility] Comment on above: Performed By: #### L 500.4100, L500.4050, L100.0100, L501.9985, L501.9940 #### [facility] [address] [place], [address] MCH (RBC) [Entitic mass] 30.6 pg Normal 27.0-32.0 [facility] Comment on above: Performed By: #### L 500.4100, L500.4050, L100.0100, L501.9985, L501.9940 #### [facility] [address] [place], [address] MCHC (RBC) [Mass/Vol] 33.0 g/dL Normal 32-36 [facility] Comment on above: Performed By: #### L 500.4100, L500.4050, L100.0100, L501.9985, L501.9940 #### [facility] [address] [place], [address] MCV (RBC) [Entitic vol] 92.6 fL Normal 80-94 [facility] Comment on above: Performed By: #### L 500.4100, L500.4050, L100.0100, L501.9985, L501.9940 #### [facility] [address] [place], [address] Monocytes/100 WBC (Bld) 10.5 % High 0-10 [facility] Comment on above: Performed By: #### L 500.4100, L500.4050, L100.0100, L501.9985, L501.9940 #### [facility] [address] [place], [address] Neutrophils/100 WBC (Bld) 49.5 % Normal 47-70 [facility] Comment on above: Performed By: #### L 500.4100, L500.4050, L100.0100, L501.9985, L501.9940 #### [facility] [address] [place], [address] Nucleated RBC (Bld) [#/Vol] 0 10*3/uL Normal 0-5 [facility] Comment on above: Performed By: #### L 500.4100, L500.4050, L100.0100, L501.9985, L501.9940 #### [facility] [address] [place], [address] Platelet mean volume (Bld) [Entitic vol] 9.0 fL Normal 6.2-12.0 [facility] Comment on above: Performed By: #### L 500.4100, L500.4050, L100.0100, L501.9985, L501.9940 #### [facility] [address] [place], [address] Platelets (Bld) [#/Vol] 283 10*3/uL Normal 150-450 [facility] Comment on above: Performed By: #### L 500.4100, L500.4050, L100.0100, L501.9985, L501.9940 #### [facility] [address] [place], [address] RBC (Bld) [#/Vol] 4.45 10*6/uL Low 4.6-6.2 [facility] Comment on above: Performed By: #### L 500.4100, L500.4050, L100.0100, L501.9985, L501.9940 #### [facility] [address] [place], [address] RDW SD 44.2 fl High 35.1-43.9 [facility] Comment on above: Performed By: #### L 500.4100, L500.4050, L100.0100, L501.9985, L501.9940 #### [facility] [address] [place], [address] WBC (Bld) [#/Vol] 4.5 10*3/uL Normal 4.4-11.0 [facility] Comment on above: Performed By: #### L 500.4100, L500.4050, L100.0100, L501.9985, L501.9940 #### [facility] [address] [place], [address] CBC, [employer] 08-13-2024 Absolute Lymph 1.30 X10 3/uL Normal 0.83-4.51 [facility] Comment on above: Performed By: #### L 506.1001, L501.9520, L501.9910, L502.0250 #### [facility] [address] [place], [address] Absolute Neut 2.1 X10 3/uL Normal 2.0-7.7 [facility] Comment on above: Performed By: #### L 506.1001, L501.9520, L501.9910, L502.0250 #### [facility] [address] [place], [address] Basophils/100 WBC (Bld) 0.9 % Normal 0-1 [facility] Comment on above: Performed By: #### L 506.1001, L501.9520, L501.9910, L502.0250 #### [facility] [address] [place], [address] Eosinophils/100 WBC (Bld) 7.0 % High 0-5 [facility] Comment on above: Performed By: #### L 506.1001, L501.9520, L501.9910, L502.0250 #### [facility] [address] [place], [address] Erythrocyte distribution width (RBC) [Ratio] 12.9 % Normal 11.6-14.6 [facility] Comment on above: Performed By: #### L 506.1001, L501.9520, L501.9910, L502.0250 #### [facility] [address] [place], [address] Hematocrit (Bld) [Volume fraction] 41.6 % Normal 40-54 [facility] Comment on above: Performed By: #### L 506.1001, L501.9520, L501.9910, L502.0250 #### [facility] [address] [place], [address] Hemoglobin (Bld) [Mass/Vol] 13.7 g/dL Normal 13.0-16.5 [facility] Comment on above: Performed By: #### L 506.1001, L501.9520, L501.9910, L502.0250 #### [facility] [address] [place], [address] Lymphocytes/100 WBC (Bld) 30.5 % Normal 19-41 [facility] Comment on above: Performed By: #### L 506.1001, L501.9520, L501.9910, L502.0250 #### [facility] [address] [place], [address] MCH (RBC) [Entitic mass] 30.7 pg Normal 27.0-32.0 [facility] Comment on above: Performed By: #### L 506.1001, L501.9520, L501.9910, L502.0250 #### [facility] [address] [place], [address] MCHC (RBC) [Mass/Vol] 32.9 g/dL Normal 32-36 [facility] Comment on above: Performed By: #### L 506.1001, L501.9520, L501.9910, L502.0250 #### [facility] [address] [place], [address] MCV (RBC) [Entitic vol] 93.3 fL Normal 80-94 [facility] Comment on above: Performed By: #### L 506.1001, L501.9520, L501.9910, L502.0250 #### [facility] [address] [place], [address] Monocytes/100 WBC (Bld) 11.0 % High 0-10 [facility] Comment on above: Performed By: #### L 506.1001, L501.9520, L501.9910, L502.0250 #### [facility] [address] [place], [address] Neutrophils/100 WBC (Bld) 50.4 % Normal 47-70 [facility] Comment on above: Performed By: #### L 506.1001, L501.9520, L501.9910, L502.0250 #### [facility] [address] [place], [address] NRBC # 0.00 10 3/uL Normal 0-5 [facility] Comment on above: Performed By: #### L 506.1001, L501.9520, L501.9910, L502.0250 #### [facility] [address] [place], [address] Nucleated RBC (Bld) [#/Vol] 0 10*3/uL Normal 0-5 [facility] Comment on above: Performed By: #### L 506.1001, L501.9520, L501.9910, L502.0250 #### [facility] [address] [place], [address] Platelet mean volume (Bld) [Entitic vol] 9.0 fL Normal 6.2-12.0 [facility] Comment on above: Performed By: #### L 506.1001, L501.9520, L501.9910, L502.0250 #### [facility] [address] [place], [address] Platelets (Bld) [#/Vol] 275 10*3/uL Normal 150-450 [facility] Comment on above: Performed By: #### L 506.1001, L501.9520, L501.9910, L502.0250 #### [facility] [address] [place], [address] RBC (Bld) [#/Vol] 4.46 10*6/uL Low 4.6-6.2 [facility] Comment on above: Performed By: #### L 506.1001, L501.9520, L501.9910, L502.0250 #### [facility] [address] [place], [address] RDW SD 44.1 fl High 35.1-43.9 [facility] Comment on above: Performed By: #### L 506.1001, L501.9520, L501.9910, L502.0250 #### [facility] [address] [place], [address] WBC (Bld) [#/Vol] 4.3 10*3/uL Low 4.4-11.0 [facility] Comment on above: Performed By: #### L 506.1001, L501.9520, L501.9910, L502.0250 #### [facility] [address] [place], [address] Comprehensive Metabolic [facility] 08-13-2024 Albumin [Mass/Vol] 3.8 g/dL Normal 3.2-5.0 [facility] Comment on above: Performed By: #### L 500.4100, L500.4050, L100.0100, L501.9985, L501.9940 #### [facility] [address] [place], [address] Albumin/Globulin [Mass ratio] 1.1 {ratio} Normal 0.9-2.4 [facility] Comment on above: Performed By: #### L 500.4100, L500.4050, L100.0100, L501.9985, L501.9940 #### [facility] [address] [place], [address] ALK P 52 U/L Normal 45-117 [facility] Comment on above: Performed By: #### L 500.4100, L500.4050, L100.0100, L501.9985, L501.9940 #### [facility] [address] [place], [address] ALT [Catalytic activity/Vol] 24 U/L Normal 16-61 [facility] Comment on above: Performed By: #### L 500.4100, L500.4050, L100.0100, L501.9985, L501.9940 #### [facility] [address] [place], [address] AST [Catalytic activity/Vol] 12 U/L Low 15-37 [facility] Comment on above: Performed By: #### L 500.4100, L500.4050, L100.0100, L501.9985, L501.9940 #### [facility] [address] [place], [address] Bilirubin [Mass/Vol] 0.90 mg/dL Normal 0.20-1.00 [facility] Comment on above: Result Comment: For patients on eltrombopag therapy, use of Dimension [place] TBIL is not recommended. Performed By: #### L 500.4100, L500.4050, L100.0100, L501.9985, L501.9940 #### [facility] [address] [place], [address] BUN/CRE 20.3 RATIO High 10-20 [facility] Comment on above: Performed By: #### L 500.4100, L500.4050, L100.0100, L501.9985, L501.9940 #### [facility] [address] [place], [address] CA,Total 9.2 mg/dL Normal 8.5-10.1 [facility] Comment on above: Performed By: #### L 500.4100, L500.4050, L100.0100, L501.9985, L501.9940 #### [facility] [address] [place], [address] Chloride [Moles/Vol] 105 mmol/L Normal 98-107 [facility] Comment on above: Performed By: #### L 500.4100, L500.4050, L100.0100, L501.9985, L501.9940 #### [facility] [address] [place], [address] CO2 [Moles/Vol] 30.0 mmol/L Normal 21.0-32.0 [facility] Comment on above: Performed By: #### L 500.4100, L500.4050, L100.0100, L501.9985, L501.9940 #### [facility] [address] [place], [address] Creatinine [Mass/Vol] 0.89 mg/dL Normal 0.70-1.30 [facility] Comment on above: Result Comment: The validity of the calculated GFR GFRAA in patients over 70 years has not been determined. Clinical correlation is essential. Performed By: #### L 500.4100, L500.4050, L100.0100, L501.9985, L501.9940 #### [facility] [address] [place], [address] EST GFR - AA 114 mL/min Normal >60 [facility] Comment on above: Result Comment: Afri can Chadian GFR Calc Performed By: #### L 500.4100, L500.4050, L100.0100, L501.9985, L501.9940 #### [facility] [address] [place], [address] GAP 4 Low 5-15 [facility] Comment on above: Performed By: #### L 500.4100, L500.4050, L100.0100, L501.9985, L501.9940 #### [facility] [address] [place], [address] GFR/1.73 sq M.predicted among non-blacks MDRD (S/P/Bld) [Vol rate/Area] 94 mL/min/{1.73_m2} Normal >60 [facility] Comment on above: Result Comment: Non- GFR Calc Performed By: #### L 500.4100, L500.4050, L100.0100, L501.9985, L501.9940 #### [facility] [address] [place], [address] Globulin (S) [Mass/Vol] 3.5 g/dL Normal 2.2-4.2 [facility] Comment on above: Performed By: #### L 500.4100, L500.4050, L100.0100, L501.9985, L501.9940 #### [facility] [address] [place], [address] Glucose [Mass/Vol] 174 mg/dL High 74-106 [facility] Comment on above: Result Comment: Fast ing Glucose result greater than or equal to 126 mg/dL suggests DIABETES MELLITUS per A.D.A. criteria. Performed By: #### L 500.4100, L500.4050, L100.0100, L501.9985, L501.9940 #### [facility] [address] [place], [address] Potassium [Moles/Vol] 4.2 mmol/L Normal 3.5-5.1 [facility] Comment on above: Performed By: #### L 500.4100, L500.4050, L100.0100, L501.9985, L501.9940 #### [facility] [address] [place], [address] Sodium [Moles/Vol] 138 mmol/L Normal 136-145 [facility] Comment on above: Performed By: #### L 500.4100, L500.4050, L100.0100, L501.9985, L501.9940 #### [facility] [address] [place], [address] T PROT 7.3 g/dL Normal 6.4-8.2 [facility] Comment on above: Performed By: #### L 500.4100, L500.4050, L100.0100, L501.9985, L501.9940 #### [facility] [address] [place], [address] Urea nitrogen [Mass/Vol] 18 mg/dL Normal 7-18 [facility] Comment on above: Performed By: #### L 500.4100, L500.4050, L100.0100, L501.9985, L501.9940 #### [facility] [address] [place], [address] [employer] 4 Albumin [Mass/Vol] 3.8 g/dL Normal 3.2-5.0 [facility] Comment on above: Performed By: #### L 506.1001, L501.9520, L501.9910, L502.0250 #### [facility] [address] [place], [address] Albumin/Globulin [Mass ratio] 1.2 {ratio} Normal 0.9-2.4 [facility] Comment on above: Performed By: #### L 506.1001, L501.9520, L501.9910, L502.0250 #### [facility] [address] [place], [address] ALK P 51 U/L Normal 45-117 [facility] Comment on above: Performed By: #### L 506.1001, L501.9520, L501.9910, L502.0250 #### [facility] [address] [place], [address] ALT [Catalytic activity/Vol] 24 U/L Normal 16-61 [facility] Comment on above: Performed By: #### L 506.1001, L501.9520, L501.9910, L502.0250 #### [facility] [address] [place], [address] AST [Catalytic activity/Vol] 13 U/L Low 15-37 [facility] Comment on above: Performed By: #### L 506.1001, L501.9520, L501.9910, L502.0250 #### [facility] [address] [place], [address] Bilirubin [Mass/Vol] 0.80 mg/dL Normal 0.20-1.00 [facility] Comment on above: Result Comment: For patients on eltrombopag therapy, use of Dimension [place] TBIL is not recommended. Performed By: #### L 506.1001, L501.9520, L501.9910, L502.0250 #### [facility] [address] [place], [address] Bilirubin.direct [Mass/Vol] 0.15 mg/dL Normal 0.00-0.30 [facility] Comment on above: Performed By: #### L 506.1001, L501.9520, L501.9910, L502.0250 #### [facility] [address] [place], [address] BUN/CRE 20.0 RATIO Normal 10-20 [facility] Comment on above: Performed By: #### L 506.1001, L501.9520, L501.9910, L502.0250 #### [facility] [address] [place], [address] CA,Total 8.9 mg/dL Normal 8.5-10.1 [facility] Comment on above: Performed By: #### L 506.1001, L501.9520, L501.9910, L502.0250 #### [facility] [address] [place], [address] Chloride [Moles/Vol] 105 mmol/L Normal 98-107 [facility] Comment on above: Performed By: #### L 506.1001, L501.9520, L501.9910, L502.0250 #### [facility] [address] [place], [address] CHOL:HDL 3.70 Normal [facility] Comment on above: Performed By: #### L 506.1001, L501.9520, L501.9910, L502.0250 #### [facility] [address] [place], [address] Cholesterol [Mass/Vol] 174 mg/dL Normal 200 [facility] Comment on above: Result Comment: <200 mg/dL Desirable 200-240 mg/dL Borderline >240 mg/dL High Risk Performed By: #### L 506.1001, L501.9520, L501.9910, L502.0250 #### [facility] [address] [place], [address] Cholesterol in HDL [Mass/Vol] 47 mg/dL Normal [facility] Comment on above: Result Comment: The drugs N-Acetylcysteine and Metamizole may falsely depress this assay. Reference Range HDL <40 mg/dL Low HDL Cholesterol HDL >or= 60 mg/dL High HDL Cholesterol Performed By: #### L 506.1001, L501.9520, L501.9910, L502.0250 #### [facility] [address] [place], [address] Cholesterol in LDL [Mass/Vol] 91 mg/dL Normal 0-130 [facility] Comment on above: Performed By: #### L 506.1001, L501.9520, L501.9910, L502.0250 #### [facility] [address] [place], [address] Cholesterol in VLDL [Mass/Vol] 36 mg/dL Normal 5-40 [facility] Comment on above: Performed By: #### L 506.1001, L501.9520, L501.9910, L502.0250 #### [facility] [address] [place], [address] CO2 [Moles/Vol] 29.0 mmol/L Normal 21.0-32.0 [facility] Comment on above: Performed By: #### L 506.1001, L501.9520, L501.9910, L502.0250 #### [facility] [address] [place], [address] Creatinine [Mass/Vol] 0.95 mg/dL Normal 0.70-1.30 [facility] Comment on above: Result Comment: The validity of the calculated GFR GFRAA in patients over 70 years has not been determined. Clinical correlation is essential. Performed By: #### L 506.1001, L501.9520, L501.9910, L502.0250 #### [facility] [address] [place], [address] EST GFR - AA 105 mL/min Normal >60 [facility] Comment on above: Result Comment: Afri can [place] GFR Calc Performed By: #### L 506.1001, L501.9520, L501.9910, L502.0250 #### [facility] [address] [place], [address] GAP 6 Normal 5-15 [facility] Comment on above: Performed By: #### L 506.1001, L501.9520, L501.9910, L502.0250 #### [facility] [address] [place], [address] GFR/1.73 sq M.predicted among non-blacks MDRD (S/P/Bld) [Vol rate/Area] 87 mL/min/{1.73_m2} Normal >60 [facility] Comment on above: Result Comment: Non- GFR Calc Performed By: #### L 506.1001, L501.9520, L501.9910, L502.0250 #### [facility] [address] [place], [address] Globulin (S) [Mass/Vol] 3.3 g/dL Normal 2.2-4.2 [facility] Comment on above: Performed By: #### L 506.1001, L501.9520, L501.9910, L502.0250 #### [facility] [address] [place], [address] Glucose [Mass/Vol] 174 mg/dL High 74-106 [facility] Comment on above: Result Comment: Fast ing Glucose result greater than or equal to 126 mg/dL suggests DIABETES MELLITUS per A.D.A. criteria. Performed By: #### L 506.1001, L501.9520, L501.9910, L502.0250 #### [facility] [address] [place], [address] LDH 196 U/L Normal 87-241 [facility] Comment on above: Performed By: #### L 506.1001, L501.9520, L501.9910, L502.0250 #### [facility] [address] [place], [address] Phosphate [Mass/Vol] 2.5 mg/dL Normal 2.5-4.9 [facility] Comment on above: Performed By: #### L 506.1001, L501.9520, L501.9910, L502.0250 #### [facility] [address] [place], [address] Potassium [Moles/Vol] 4.2 mmol/L Normal 3.5-5.1 [facility] Comment on above: Performed By: #### L 506.1001, L501.9520, L501.9910, L502.0250 #### [facility] [address] [place], [address] Sodium [Moles/Vol] 139 mmol/L Normal 136-145 [facility] Comment on above: Performed By: #### L 506.1001, L501.9520, L501.9910, L502.0250 #### [facility] [address] [place], [address] T PROT 7.1 g/dL Normal 6.4-8.2 [facility] Comment on above: Performed By: #### L 506.1001, L501.9520, L501.9910, L502.0250 #### [facility] [address] [place], [address] Triglyceride [Mass/Vol] 179 mg/dL Normal [facility] Comment on above: Result Comment: The drugs N-Acetylcysteine and Metamizole may falsely depress this assay. Serum Triglycerides Reference Interval Normal <150 mg/dL Borderline high 150 - 199 mg/dL High 200 - 499 mg/dL Very High > or = 500 mg/dL Performed By: #### L 506.1001, L501.9520, L501.9910, L502.0250 #### [facility] [address] [place], [address] Urea nitrogen [Mass/Vol] 19 mg/dL High 7-18 [facility] Comment on above: Performed By: #### L 506.1001, L501.9520, L501.9910, L502.0250 #### [facility] [address] [place], [address] URIC 6.3 mg/dL Normal 3.5-7.2 [facility] Comment on above: Result Comment: The drugs N-Acetylcysteine and Metamizole may falsely depress this assay. Performed By: #### L 506.1001, L501.9520, L501.9910, L502.0250 #### [facility] [address] [place], [address] Hemoglobin A1con 08-13-2024 HbA1c (Bld) [Mass fraction] 6.6 % High 3.8-5.6 [facility] Comment on above: Result Comment: Norm al < 5.7 % Prediabetic 5.7 - 6.4 % Diabetic >or= 6.5 % Please note range changes. Performed By: #### L 500.4100, L500.4050, L100.0100, L501.9985, L501.9940 #### [facility] [address] [place], [address] Lipid Profileon 08-13-2024 Cholesterol [Mass/Vol] 168 mg/dL Normal 200 [facility] Comment on above: Result Comment: <200 mg/dL Desirable 200-240 mg/dL Borderline >240 mg/dL High Risk Performed By: #### L 500.4100, L500.4050, L100.0100, L501.9985, L501.9940 #### [facility] [address] [place], [address] Cholesterol in HDL [Mass/Vol] 49 mg/dL Normal [facility] Comment on above: Result Comment: The drugs N-Acetylcysteine and Metamizole may falsely depress this assay. Reference Range HDL <40 mg/dL Low HDL Cholesterol HDL >or= 60 mg/dL High HDL Cholesterol Performed By: #### L 500.4100, L500.4050, L100.0100, L501.9985, L501.9940 #### [facility] [address] [place], [address] Cholesterol in LDL [Mass/Vol] 83 mg/dL Normal 0-130 [facility] Comment on above: Performed By: #### L 500.4100, L500.4050, L100.0100, L501.9985, L501.9940 #### [facility] [address] [place], [address] Cholesterol in VLDL [Mass/Vol] 36 mg/dL Normal 5-40 [facility] Comment on above: Performed By: #### L 500.4100, L500.4050, L100.0100, L501.9985, L501.9940 #### [facility] [address] [place], [address] Triglyceride [Mass/Vol] 178 mg/dL Normal [facility] Comment on above: Result Comment: The drugs N-Acetylcysteine and Metamizole may falsely depress this assay. Serum Triglycerides Reference Interval Normal <150 mg/dL Borderline high 150 - 199 mg/dL High 200 - 499 mg/dL Very High > or = 500 mg/dL Performed By: #### L 500.4100, L500.4050, L100.0100, L501.9985, L501.9940 #### [facility] [address] [place], [address] PSA,Total- Diagnosticon 100 PSA, DIAGNOSTIC 0.34 ng/mL Normal 0.0-4.0 [facility] Comment on above: Result Comment: This test was performed using the TPSA assay method for the QuantConnect chemistry system. Values obtained with different assay methods cannot be used interchangably. When changing PSA assays in the course of monitoring a patient, additional sequential testing should be carried out to confirm baseline values. Performed By: #### L 500.4100, L500.4050, L100.0100, L501.9985, L501.9940 #### [facility] [address] [place], [address] Urinalysis, Employee[employer] 08-13 BILIRUBIN URINE Negative Normal Negative [facility] Comment on above: Order Comment: CLEAN CATCH Performed By: #### L 506.1001, L501.9520, L501.9910, L502.0250 #### [facility] [address] [place], [address] Clarity (U) Clear Normal Clear [facility] Comment on above: Order Comment: CLEAN CATCH Performed By: #### L 506.1001, L501.9520, L501.9910, L502.0250 #### [facility] [address] [place], [address] Color (U) Yellow Normal Yellow [facility] Comment on above: Order Comment: CLEAN CATCH Performed By: #### L 506.1001, L501.9520, L501.9910, L502.0250 #### [facility] [address] [place], [address] GLUCOSE, UR Normal Normal Normal [facility] Comment on above: Order Comment: CLEAN CATCH Performed By: #### L 506.1001, L501.9520, L501.9910, L502.0250 #### [facility] [address] [place], [address] KETONE UR Negative Normal Negative [facility] Comment on above: Order Comment: CLEAN CATCH Performed By: #### L 506.1001, L501.9520, L501.9910, L502.0250 #### [facility] [address] [place], [address] LEUK ESTERASE Negative Normal Negative [facility] Comment on above: Order Comment: CLEAN CATCH Performed By: #### L 506.1001, L501.9520, L501.9910, L502.0250 #### [facility] [address] [place], [address] Nitrite Ql (U) Negative Normal Negative [facility] Comment on above: Order Comment: CLEAN CATCH Performed By: #### L 506.1001, L501.9520, L501.9910, L502.0250 #### [facility] [address] [place], [address] OCCULT BLOOD-UR Negative Normal Negative [facility] Comment on above: Order Comment: CLEAN CATCH Performed By: #### L 506.1001, L501.9520, L501.9910, L502.0250 #### [facility] [address] [place], [address] pH UR 6.0 Normal 5.0 - 8.0 [facility] Comment on above: Order Comment: CLEAN CATCH Performed By: #### L 506.1001, L501.9520, L501.9910, L502.0250 #### [facility] [address] [place], [address] PROT DIPSTX 15 mg/dl Abnormal Negative [facility] Comment on above: Order Comment: CLEAN CATCH Performed By: #### L 506.1001, L501.9520, L501.9910, L502.0250 #### [facility] [address] [place], [address] SP.GR. DIPSTX 1.020 Normal 1.002-1.030 [facility] Comment on above: Order Comment: CLEAN CATCH Performed By: #### L 506.1001, L501.9520, L501.9910, L502.0250 #### [facility] [address] [place], [address] UROBILI Normal Normal Normal [facility] Comment on above: Order Comment: CLEAN CATCH Performed By: #### L 506.1001, L501.9520, L501.9910, L502.0250 #### [facility] [address] [place], [address] CNPNon 07-30-2024 [facility] Telephone ([facility]) AL GONZALEZ ([id number]) 1965 M Date Time Provider Department 07/30/24 [facility]AR[facility] During your visit today, we recorded the following information about you: Belle Barber 07/30/2024 10:16 AM Signed Patient has apt 08/15 and requesting a PSA order to be sent to [facility] (because he works there) Please advise Jeff Perry MD 07/31/2024 9:06 AM Signed Orders approved. Shannon Ramirez MA 07/31/2024 9:28 AM Signed Pt notified. Orders faxed to [facility]. Shannon Ramirez MA Allergies As [...] [Z12.5] Order(s):LIPID PANEL BASIC [SQLIPB] Order #: [id number] FUTURE PROSTATE-SPECIFIC ANTIGEN DIAGNOSTIC [SQPSA] Order #: [id number] FUTURE COMPREHENSIVE METABOLIC PANEL [SQCMP] Order #: [id number] FUTURE COMPLETE BLOOD COUNT AND DIFFERENTIAL [SQCBCDIF] Order #: [id number] FUTURE HEMOGLOBIN A1C [BSLHJ3S] Order #: [id number] FUTURE Prescriptions as of 07/31/2024 - losartan [...] Status:Closed by SHANNON RAMIREZ on 07/31/24 Normal [facility] Basophil percentageOrdered B y: Kike Darius on 12-15-2023 Bilirubin [Mass/Vol] 0.70 mg/dL 0.20-1.00 [facility] Comment on above: For patients on eltr ombopag therapy, use of Dimension [place] TBIL is not recommended. Chloride [Moles/Vol] 105 mmol/L 98-107 [facility] Cholesterol [Mass/Vol] 143 mg/dL <200 [facility] [facility] Comment on above: <200 mg/dL Desirable 200-240 mg/dL Borderline >240 mg/dL High Risk Glucose [Mass/Vol] 146 mg/dL 74-106 [facility] Comment on above: Fasting Glucose resu lt greater than or equal to 126 mg/dL suggests DIABETES MELLITUS per A.D.A. criteria. Potassium [Moles/Vol] 3.8 mmol/L 3.5-5.1 [facility] Protein [Mass/Vol] 7.2 g/dL 6.4-8.2 [facility] Sodium [Moles/Vol] 137 mmol/L 136-145 [facility] Triglyceride [Mass/Vol] 94 mg/dL <199 [facility] Comment on above: The drugs N-Acetylcy steine and Metamizole may falsely depress this assay.Serum Triglycerides Reference Interval Normal <150 mg/dL Borderline high 150 - 199 mg/dL High 200 - 499 mg/dL Very High > or = 500 mg/dL Laboratory - Chemistry and C hemistry - challengeOrdered By: Kike Mccoy on 12-15-2023 Albumin/Globulin [Mass ratio] 1.3 {ratio} 0.9-2.4 [facility] ALP [Catalytic activity/Vol] 49 U/L 45-117 [facility] ALT [Catalytic activity/Vol] 34 U/L 16-61 [facility] Cholesterol in HDL [Mass/Vol] 49 mg/dL >40 [facility] Comment on above: The drugs N-Acetylcy steine and Metamizole may falsely depress this assay. Reference Range HDL <40 mg/dL Low HDL Cholesterol HDL >or= 60 mg/dL High HDL Cholesterol Cholesterol in LDL [Mass/Vol] 75 mg/dL 0-130 [facility] CO2 [Moles/Vol] 28.0 mmol/L 21.0-32.0 [facility] Globulin (S) [Mass/Vol] 3.1 g/dL 2.2-4.2 [facility] Urea nitrogen/Creatinine [Mass ratio] 19.1 mg/mg 10-20 [facility] No Panel InformationOrdered By: Kike Mccoy on 12-15-2023 Urine Microalbumin/Creatini ne Ratio 6.8 mg/g CRE <30 [facility] Estimated GFR (MDRD) Amer 113 mL/min >60 [facility] Comment on above: GFR Calc Estimated GFR (MDRD) Non-Af Amer 94 mL/min >60 [facility] Comment on above: Non- GFR Calc VLDL Cholesterol 19 mg/dL 5-40 [facility] Serum or plasma calcium jack urement (mass/volume)Ordered By: Kike Mccoy on 12-15-2023 Calcium [Mass/Vol] 9.1 mg/dL 8.5-10.1 [facility] Serum or plasma creatinine m easurement (mass/volume)Ordered By: Kike Mccoy on 12-15-2023 Creatinine [Mass/Vol] 0.89 mg/dL 0.70-1.30 [facility] Comment on above: The validity of the calculated GFR & GFRAA in patients over 70 years has not been determined. Clinical correlation is essential. Serum or plasma thyroid stim ulating hormone (TSH) measurement (units/volume)Ordered By: Kike Mccoy on 12-15-2023 TSH Qn 1.62 uIU/mL 0.358-3.74 [facility] Serum or plasma urea nitroge n measurement (mass/volume)Ordered By: Kike Mccoy on 12-15-2023 Urea nitrogen [Mass/Vol] 17 mg/dL 7-18 [facility] Thin prep Papanicolaou smear with manual screeningOrdered By: Kike Mccoy on 12-15-2023 Thin prep Papanicolaou smear with manual screening 20.1 mg/L NO RANGE EST. [facility] Thin prep Papanicolaou smear with manual screening 4.1 g/dL 3.2-5.0 [facility] Thin prep Papanicolaou smear with manual screening 16 U/L 15-37 [facility] Thin prep Papanicolaou smear with manual screening 4 5-15 [facility] Urine creatinine measurement (mass/volume)Ordered By: Kike Mccoy on 12-15-2023 Creatinine (U) [Mass/Vol] 297.00 mg/dL NO RANGE EST. [facility] Whole blood hemoglobin A1c/t otal hemoglobin ratio (mass fraction)Ordered By: Kike Mccoy on 12-15-2023 HbA1c (Bld) [Mass fraction] 7.0 % 3.8-5.6 [facility] Comment on above: Normal < 5.7 % Predi abetic 5.7 - 6.4 % Diabetic >or= 6.5 % Please note range changes. Whole blood hemoglobin A1c/t otal hemoglobin ratio (mass fraction)Ordered By: Kike Mccoy on 04-13-2023 HbA1c (Bld) [Mass fraction] 6.8 % 3.8-5.6 [facility] Comment on above: Normal < 5.7 % Predi abetic 5.7 - 6.4 % Diabetic >or= 6.5 % Please note range changes. Absolute lymphocyte counton 10-24-2022 Lymphocytes Auto (Unsp spec) [#/Vol] 2.30 10*3/uL 0.83-4.51 [facility] Work Phone: Basophil percentageon 2021 Basophils/100 WBC (Bld) 0.6 % 0-1 [facility] Work Phone: Chloride [Moles/Vol] 105 mmol/L 98-107 [facility] Work Phone: Eosinophils/100 WBC (Bld) 7.0 % 0-5 [facility] Work Phone: Glucose [Mass/Vol] 157 mg/dL 74-106 [facility] Work Phone: Comment on above: Fasting Glucose resu lt greater than or equal to 126 mg/dL suggests DIABETES MELLITUS per A.D.A. criteria. Neutrophils (Bld) [#/Vol] 3.4 10*3/uL 2.0-7.7 [facility] Work Phone: Neutrophils/100 WBC (Bld) 50.2 % 47-70 [facility] Work Phone: Potassium [Moles/Vol] 3.9 mmol/L 3.5-5.1 [facility] Work Phone: Sodium [Moles/Vol] 139 mmol/L 136-145 [facility] Work Phone: WBC (Bld) [#/Vol] 6.8 10*3/uL 4.4-11.0 [facility] Work Phone: Blood erythrocytes count (nu mber/volume)on 10-24-2022 RBC (Bld) [#/Vol] 4.66 10*6/uL 4.6-6.2 [facility] Work Phone: Blood hemoglobin measurement (mass/volume)on 10-24-2022 Hemoglobin (Bld) [Mass/Vol] 14.3 g/dL 13.0-16.5 [facility] Work Phone: Blood lymphocytes/100 leukoc yteson 10-24-2022 Lymphocytes/100 WBC (Bld) 33.7 % 19-41 [facility] Work Phone: Blood monocytes/100 leukocyt eson 10-24-2022 Monocytes/100 WBC (Bld) 8.2 % 0-10 [facility] Work Phone: Blood platelet mean volumeon 10-24-2022 Platelet mean volume (Bld) [Entitic vol] 8.9 fL 6.2-12.0 [facility] Work Phone: Determination of erythrocyte mean corpuscular volume (MCV)on 10-24-2022 MCV (RBC) [Entitic vol] 90.1 fL 80-94 [facility] Work Phone: Hematocrit Auto (Bld) [Volum e fraction]on 10-24-2022 Hematocrit (Bld) [Volume fraction] 42.0 % 40-54 [facility] Work Phone: Laboratory - Chemistry and C hemistry - challengeon 10-24-2022 CO2 [Moles/Vol] 28.0 mmol/L 21.0-32.0 [facility] Work Phone: Magnesium [Mass/Vol] 2.2 mg/dL 1.6-2.6 [facility] Work Phone: Urea nitrogen/Creatinine [Mass ratio] 23.8 mg/mg 10-20 [facility] Work Phone: Laboratory - Hematology and Cell countson 10-24-2022 Erythrocyte distribution width (RBC) [Entitic vol] 42.5 fL 35.1-43.9 [facility] Work Phone: Erythrocyte distribution width (RBC) [Ratio] 12.9 % 11.6-14.6 [facility] Work Phone: Immature granulocytes/100 WBC (Bld) 0.300 % 0.0-0.9 [facility] Work Phone: Comment on above: IG% - Immature Granu locytes (promyelocytes, myelocytes and metamyelocytes) > 1% indicates that a LEFT SHIFT is Present. MCH (RBC) [Entitic mass] 30.7 pg 27.0-32.0 [facility] Work Phone: Nucleated RBC/100 WBC (Bld) [Ratio] 0 % 0-5 [facility] Work Phone: MCHC Auto (RBC) [Mass/Vol]on 10-24-2022 MCHC (RBC) [Mass/Vol] 34.0 g/dL 32-36 [facility] Work Phone: No Panel Informationon 10-24 Estimated Creatinine Clearance Calc 96.63 ml/min [facility] Work Phone: Estimated GFR (MDRD) Amer 109 mL/min >60 [facility] Work Phone: Comment on above: GFR Calc Estimated GFR (MDRD) Non-Af Amer 90 mL/min >60 [facility] Work Phone: Comment on above: Non- GFR Calc Platelets bldon 10-24-2022 Platelets (Bld) [#/Vol] 324 10*3/uL 150-450 [facility] Work Phone: Serum or plasma calcium jack urement (mass/volume)on 10-24-2022 Calcium [Mass/Vol] 9.0 mg/dL 8.5-10.1 [facility] Work Phone: Serum or plasma creatinine m easurement (mass/volume)on 10-24-2022 Creatinine [Mass/Vol] 0.92 mg/dL 0.70-1.30 [facility] Work Phone: Comment on above: The validity of the calculated GFR & GFRAA in patients over 70 years has not been determined. Clinical correlation is essential. Serum or plasma urea nitroge n measurement (mass/volume)on 10-24-2022 Urea nitrogen [Mass/Vol] 22 mg/dL - [facility] Work Phone: Thin prep Papanicolaou smear with manual screeningon 10-24-2022 Thin prep Papanicolaou smear with manual screening 6 5-15 [facility] Work Phone: Basophil percentageon 2021 Bilirubin [Mass/Vol] 0.50 mg/dL 0.20-1.00 [facility] Work Phone: Comment on above: For patients on eltr ombopag therapy, use of Dimension [place] TBIL is not recommended. Protein [Mass/Vol] 6.7 g/dL 6.4-8.2 [facility] Work Phone: Glucose Glucometer (BldC) [M ass/Vol]on 10-23-2022 Glucose [Mass/Vol] 232 mg/dL 74-106 [facility] Work Phone: Comment on above: MANAGEMENT OF PATIEN T CARE PER NURSING PROTOCOL Laboratory - Chemistry and C hemistry - challengeon 10-23-2022 ALP [Catalytic activity/Vol] 53 U/L 45-117 [facility] Work Phone: ALT [Catalytic activity/Vol] 29 U/L 16-61 [facility] Work Phone: Globulin (S) [Mass/Vol] 3.3 g/dL 2.2-4.2 [facility] Work Phone: No Panel Informationon 10-23 Thyroid Stimulating Hormone (TSH) 1.67 uIU/mL 0.358-3.74 [facility] Work Phone: Troponin I High Sensitivity 30 pg/mL 3.0-78.0 [facility] Work Phone: Comment on above: Please Note: New July t Units and Gender Specific Reference Ranges. For more information see Policy Stat Procedure [place] High Sensitivity Troponin (TNIH) and attachments. Serum or plasma albumin jack urement (mass/volume)on 10-23-2022 Albumin [Mass/Vol] 3.4 g/dL 3.2-5.0 [facility] Work Phone: Serum or plasma albumin/glob ulin mass ratioon 10-23-2022 Albumin/Globulin [Mass ratio] 1.0 {ratio} 0.9-2.4 [facility] Work Phone: Thin prep Papanicolaou smear with manual screeningon 10-23-2022 Thin prep Papanicolaou smear with manual screening 11 U/L 15-37 [facility] Work Phone: Absolute lymphocyte counton 10-22-2022 Lymphocytes Auto (Unsp spec) [#/Vol] 2.50 10*3/uL 0.83-4.51 [facility] Work Phone: Basophil percentageon 2021 Basophils/100 WBC (Bld) 0.9 % 0-1 [facility] Work Phone: Chloride [Moles/Vol] 103 mmol/L 98-107 [facility] Work Phone: Eosinophils/100 WBC (Bld) 6.3 % 0-5 [facility] Work Phone: Glucose [Mass/Vol] 317 mg/dL 74-106 [facility] Work Phone: Comment on above: Glucose result great er than or equal to 200 mg/dLsuggests DIABETES MELLITUS per A.D.A. criteria. Neutrophils (Bld) [#/Vol] 3.1 10*3/uL 2.0-7.7 [facility] Work Phone: Neutrophils/100 WBC (Bld) 45.7 % 47-70 [facility] Work Phone: Potassium [Moles/Vol] 3.8 mmol/L 3.5-5.1 [facility] Work Phone: Comment on above: Moderate Hemolysis, Result may be falsely increased. Sodium [Moles/Vol] 137 mmol/L 136-145 [facility] Work Phone: WBC (Bld) [#/Vol] 6.8 10*3/uL 4.4-11.0 [facility] Work Phone: Blood erythrocytes count (nu mber/volume)on 10-22-2022 RBC (Bld) [#/Vol] 4.84 10*6/uL 4.6-6.2 [facility] Work Phone: Blood hemoglobin measurement (mass/volume)on 10-22-2022 Hemoglobin (Bld) [Mass/Vol] 15.3 g/dL 13.0-16.5 [facility] Work Phone: Blood lymphocytes/100 leukoc yteson 10-22-2022 Lymphocytes/100 WBC (Bld) 36.7 % 19-41 [facility] Work Phone: Blood monocytes/100 leukocyt eson 10-22-2022 Monocytes/100 WBC (Bld) 10.3 % 0-10 [facility] Work Phone: Blood platelet mean volumeon 10-22-2022 Platelet mean volume (Bld) [Entitic vol] 8.8 fL 6.2-12.0 [facility] Work Phone: Determination of erythrocyte mean corpuscular volume (MCV)on 10-22-2022 MCV (RBC) [Entitic vol] 89.5 fL 80-94 [facility] Work Phone: Hematocrit Auto (Bld) [Volum e fraction]on 10-22-2022 Hematocrit (Bld) [Volume fraction] 43.3 % 40-54 [facility] Work Phone: INR in Blood by Coagulation assayon 10-22-2022 INR Coag (Bld) [Relative time] 1.0 {INR} [facility] Work Phone: Laboratory - Chemistry and C hemistry - challengeon 10-22-2022 CO2 [Moles/Vol] 28.0 mmol/L 21.0-32.0 [facility] Work Phone: Urea nitrogen/Creatinine [Mass ratio] 21.7 mg/mg 10-20 [facility] Work Phone: Laboratory - Coagulationon 12-23-2021 aPTT Coag (Bld) [Time] 25.3 s 24.1-36.2 [facility] Work Phone: PT Coag (PPP) [Time] 12.7 s 11.7-14.9 [facility] Work Phone: Laboratory - Hematology and Cell countson 10-22-2022 Erythrocyte distribution width (RBC) [Entitic vol] 41.9 fL 35.1-43.9 [facility] Work Phone: Erythrocyte distribution width (RBC) [Ratio] 12.8 % 11.6-14.6 [facility] Work Phone: Immature granulocytes/100 WBC (Bld) 0.100 % 0.0-0.9 [facility] Work Phone: Comment on above: IG% - Immature Granu locytes (promyelocytes, myelocytes and metamyelocytes) > 1% indicates that a LEFT SHIFT is Present. MCH (RBC) [Entitic mass] 31.6 pg 27.0-32.0 [facility] Work Phone: Nucleated RBC/100 WBC (Bld) [Ratio] 0 % 0-5 [facility] Work Phone: MCHC Auto (RBC) [Mass/Vol]on 10-22-2022 MCHC (RBC) [Mass/Vol] 35.3 g/dL 32-36 [facility] Work Phone: No Panel Informationon 10-22 Estimated Creatinine Clearance Calc 83.86 ml/min [facility] Work Phone: Estimated GFR (MDRD) Amer 93 mL/min >60 [facility] Work Phone: Comment on above: GFR Calc Estimated GFR (MDRD) Non-Af Amer 77 mL/min >60 [facility] Work Phone: Comment on above: Non- GFR Calc Thyroid Stimulating Hormone (TSH) 2.12 uIU/mL 0.358-3.74 [facility] Work Phone: Platelets bldon 10-22-2022 Platelets (Bld) [#/Vol] 307 10*3/uL 150-450 [facility] Work Phone: Serum or plasma calcium jack urement (mass/volume)on 10-22-2022 Calcium [Mass/Vol] 9.4 mg/dL 8.5-10.1 [facility] Work Phone: Serum or plasma creatinine m easurement (mass/volume)on 10-22-2022 Creatinine [Mass/Vol] 1.06 mg/dL 0.70-1.30 [facility] Work Phone: Comment on above: The validity of the calculated GFR & GFRAA in patients over 70 years has not been determined. Clinical correlation is essential. Serum or plasma urea nitroge n measurement (mass/volume)on 10-22-2022 Urea nitrogen [Mass/Vol] 23 mg/dL 7-18 [facility] Work Phone: Thin prep Papanicolaou smear with manual screeningon 10-22-2022 Thin prep Papanicolaou smear with manual screening 6 -15 [facility] Work Phone: Absolute lymphocyte counton 08-05-2022 Lymphocytes Auto (Unsp spec) [#/Vol] 1.39 10*3/uL 0.83-4.51 [facility] Work Phone: Absolute reticulocyte counto n 08-05-2022 Reticulocytes (Bld) [#/Vol] 0.00 10*3/uL 0-5 [facility] Work Phone: Basophil percentageon 2021 Basophil percentage 3.2 mg/dL 2.5-4.9 [facility] Work Phone: Bilirubin [Mass/Vol] 0.60 mg/dL 0.20-1.00 [facility] Work Phone: Comment on above: For patients on eltr ombopag therapy, use of Dimension [place] TBIL is not recommended. Chloride [Moles/Vol] 109 mmol/L 98-107 [facility] Work Phone: Cholesterol [Mass/Vol] 120 mg/dL <200 [facility] Work Phone: Comment on above: <200 mg/dL Desirable 200-240 mg/dL Borderline >240 mg/dL High Risk Glucose [Mass/Vol] 137 mg/dL 74-106 [facility] Work Phone: Comment on above: Fasting Glucose resu lt greater than or equal to 126 mg/dL suggests DIABETES MELLITUS per A.D.A. criteria. Neutrophils (Bld) [#/Vol] 2.4 10*3/uL 2.0-7.7 [facility] Work Phone: Potassium [Moles/Vol] 4.1 mmol/L 3.5-5.1 [facility] Work Phone: Protein [Mass/Vol] 6.8 g/dL 6.4-8.2 [facility] Work Phone: Sodium [Moles/Vol] 143 mmol/L 136-145 [facility] Work Phone: Triglyceride [Mass/Vol] 75 mg/dL <199 [facility] Work Phone: Comment on above: The drugs N-Acetylcy steine and Metamizole may falsely depress this assay.Serum Triglycerides Reference Interval Normal <150 mg/dL Borderline high 150 - 199 mg/dL High 200 - 499 mg/dL Very High > or = 500 mg/dL WBC (Bld) [#/Vol] 4.7 10*3/uL 4.4-11.0 [facility] Work Phone: Blood erythrocytes count (nu mber/volume)on 08-05-2022 RBC (Bld) [#/Vol] 4.32 10*6/uL 4.6-6.2 [facility] Work Phone: Blood hemoglobin measurement (mass/volume)on 08-05-2022 Hemoglobin (Bld) [Mass/Vol] 13.3 g/dL 13.0-16.5 [facility] Work Phone: Blood platelet mean volumeon 08-05-2022 Platelet mean volume (Bld) [Entitic vol] 9.2 fL 6.2-12.0 [facility] Work Phone: Determination of erythrocyte mean corpuscular volume (MCV)on 08-05-2022 MCV (RBC) [Entitic vol] 89.1 fL 80-94 [facility] Work Phone: Direct bilirubinon Bilirubin.direct [Mass/Vol] 0.20 mg/dL 0.00-0.30 [facility] Work Phone: Hematocrit Auto (Bld) [Volum e fraction]on 08-05-2022 Hematocrit (Bld) [Volume fraction] 38.5 % 40-54 [facility] Work Phone: Laboratory - Chemistry and C hemistry - challengeon 08-05-2022 ALP [Catalytic activity/Vol] 44 U/L 45-117 [facility] Work Phone: ALT [Catalytic activity/Vol] 28 U/L 16-61 [facility] Work Phone: Cholesterol.total/Cho lesterol in HDL [Mass ratio] 2.60 {ratio} [facility] Work Phone: CO2 [Moles/Vol] 27.0 mmol/L 21.0-32.0 [facility] Work Phone: Globulin (S) [Mass/Vol] 3.1 g/dL 2.2-4.2 [facility] Work Phone: Urea nitrogen/Creatinine [Mass ratio] 27.2 mg/mg 10-20 [facility] Work Phone: Laboratory - Hematology and Cell countson 08-05-2022 Erythrocyte distribution width (RBC) [Entitic vol] 42.0 fL 35.1-43.9 [facility] Work Phone: Erythrocyte distribution width (RBC) [Ratio] 12.8 % 11.6-14.6 [facility] Work Phone: MCH (RBC) [Entitic mass] 30.8 pg 27.0-32.0 [facility] Work Phone: Nucleated RBC/100 WBC (Bld) [Ratio] 0 % 0-5 [facility] Work Phone: MCHC Auto (RBC) [Mass/Vol]on 08-05-2022 MCHC (RBC) [Mass/Vol] 34.5 g/dL 32-36 [facility] Work Phone: No Panel Informationon 08-05 Prostate Specific Antigen Screen 0.35 ng/mL 0.00-4.00 [facility] Work Phone: Comment on above: This test was perfor med using the TPSA assay method for [employer] chemistry system. Values obtained with differentassay methods cannot be used interchangably.When changing PSA assays in the course of monitoring apatient, additional sequential testing should be carriedout to confirm baseline values. Thyroid Stimulating Hormone (TSH) 1.26 uIU/mL 0.358-3.74 [facility] Work Phone: Vitamin D 25-Hydroxy 26.1 ng/mL [facility] Work Phone: Comment on above: Vitamin D 25(OH) Sta tus Range Deficiency <20 ng/mL (50nmol/L) Insufficiency 20 - 30 ng/mL (50 - 75 nmol/L) Sufficiency 30 - 100 ng/mL (75 - 250 nmol/L) Toxicity >100 ng/mL (>250 nmol/L) Estimated GFR (MDRD) Amer 121 mL/min >60 [facility] Work Phone: Comment on above: GFR Calc Estimated GFR (MDRD) Non-Af Amer 100 mL/min >60 [facility] Work Phone: Comment on above: Non- GFR Calc Platelets bldon 08-05-2022 Platelets (Bld) [#/Vol] 261 10*3/uL 150-450 [facility] Work Phone: Segmented neutrophils/100 WB C Auto (Bld)on 08-05-2022 Segmented neutrophils/100 WBC (Bld) 51.2 % 47-70 [facility] Work Phone: Serum or plasma albumin jack urement (mass/volume)on 08-05-2022 Albumin [Mass/Vol] 3.7 g/dL 3.2-5.0 [facility] Work Phone: Serum or plasma albumin/glob ulin mass ratioon 08-05-2022 Albumin/Globulin [Mass ratio] 1.2 {ratio} 0.9-2.4 [facility] Work Phone: Serum or plasma calcium jack urement (mass/volume)on 08-05-2022 Calcium [Mass/Vol] 9.0 mg/dL 8.5-10.1 [facility] Work Phone: Serum or plasma cholesterol in HDL measurement (mass/volume)on 08-05-2022 Cholesterol in HDL [Mass/Vol] 47 mg/dL >40 [facility] Work Phone: Comment on above: The drugs N-Acetylcy steine and Metamizole may falsely depress this assay. Reference Range HDL <40 mg/dL Low HDL Cholesterol HDL >or= 60 mg/dL High HDL Cholesterol Serum or plasma cholesterol in VLDL measurement (mass/volume)on 08-05-2022 Cholesterol in VLDL [Mass/Vol] 15 mg/dL 5-40 [facility] Work Phone: Serum or plasma creatinine m easurement (mass/volume)on 08-05-2022 Creatinine [Mass/Vol] 0.85 mg/dL 0.70-1.30 [facility] Work Phone: Comment on above: The validity of the calculated GFR & GFRAA in patients over 70 years has not been determined. Clinical correlation is essential. Serum or plasma low density lipoprotein (LDL) cholesterol measurement (mass/volume)on 08-05-2022 Cholesterol in LDL [Mass/Vol] 58 mg/dL 0-130 [facility] Work Phone: Serum or plasma urea nitroge n measurement (mass/volume)on 08-05-2022 Urea nitrogen [Mass/Vol] 23 mg/dL 7-18 [facility] Work Phone: Serum or plasma uric acid me asurement (mass/volume)on 08-05-2022 Urate [Mass/Vol] 4.8 mg/dL 3.5-7.2 [facility] Work Phone: Comment on above: The drugs N-Acetylcy steine and Metamizole may falsely depress this assay. Thin prep Papanicolaou smear with manual screeningon 08-05-2022 Thin prep Papanicolaou smear with manual screening 11 U/L 15-37 [facility] Work Phone: Thin prep Papanicolaou smear with manual screening 7 5-15 [facility] Work Phone: Thin prep Papanicolaou smear with manual screening 166 U/L 87-241 [facility] Work Phone: Whole blood hemoglobin A1c/t otal hemoglobin ratio (mass fraction)on 08-05-2022 HbA1c (Bld) [Mass fraction] 6.7 % 3.8-5.6 [facility] Work Phone: Comment on above: Normal < 5.7 % Predi abetic 5.7 - 6.4 % Diabetic >or= 6.5 % Please note range changes. Basophil percentageon 2021 Bilirubin [Mass/Vol] 0.50 mg/dL 0.20-1.00 [facility] Work Phone: Comment on above: For patients on eltr ombopag therapy, use of Dimension [place] TBIL is not recommended. Chloride [Moles/Vol] 103 mmol/L 98-107 [facility] Work Phone: Cholesterol [Mass/Vol] 126 mg/dL <200 [facility] Work Phone: Comment on above: <200 mg/dL Desirable 200-240 mg/dL Borderline >240 mg/dL High Risk Glucose [Mass/Vol] 136 mg/dL 74-106 [facility] Work Phone: Comment on above: Fasting Glucose resu lt greater than or equal to 126 mg/dL suggests DIABETES MELLITUS per A.D.A. criteria. Potassium [Moles/Vol] 4.2 mmol/L 3.5-5.1 [facility] Work Phone: Protein [Mass/Vol] 7.1 g/dL 6.4-8.2 [facility] Work Phone: Sodium [Moles/Vol] 140 mmol/L 136-145 [facility] Work Phone: Triglyceride [Mass/Vol] 130 mg/dL [facility] Work Phone: Comment on above: The drugs N-Acetylcy steine and Metamizole may falsely depress this assay.Serum Triglycerides Reference Interval Normal <150 mg/dL Borderline high 150 - 199 mg/dL High 200 - 499 mg/dL Very High > or = 500 mg/dL Laboratory - Chemistry and C hemistry - challengeon 03-03-2022 ALP [Catalytic activity/Vol] 47 U/L 45-117 [facility] Work Phone: ALT [Catalytic activity/Vol] 32 U/L 16-61 [facility] Work Phone: CO2 [Moles/Vol] 30.0 mmol/L 21.0-32.0 [facility] Work Phone: Globulin (S) [Mass/Vol] 3.0 g/dL 2.2-4.2 [facility] Work Phone: Magnesium [Mass/Vol] 2.0 mg/dL 1.6-2.6 [facility] Work Phone: Urea nitrogen/Creatinine [Mass ratio] 21.1 mg/mg 10-20 [facility] Work Phone: No Panel Informationon 03-03 Estimated GFR (MDRD) Amer 100 mL/min >60 [facility] Work Phone: Comment on above: GFR Calc Estimated GFR (MDRD) Non-Af Amer 83 mL/min >60 [facility] Work Phone: Comment on above: Non- GFR Calc Serum or plasma albumin jack urement (mass/volume)on 03-03-2022 Albumin [Mass/Vol] 4.1 g/dL 3.2-5.0 [facility] Work Phone: Serum or plasma albumin/glob ulin mass ratioon 03-03-2022 Albumin/Globulin [Mass ratio] 1.4 {ratio} 0.9-2.4 [facility] Work Phone: Serum or plasma calcium jack urement (mass/volume)on 03-03-2022 Calcium [Mass/Vol] 8.8 mg/dL 8.5-10.1 [facility] Work Phone: Serum or plasma cholesterol in HDL measurement (mass/volume)on 03-03-2022 Cholesterol in HDL [Mass/Vol] 40 mg/dL [facility] Work Phone: Comment on above: The drugs N-Acetylcy steine and Metamizole may falsely depress this assay. Reference Range HDL <40 mg/dL Low HDL Cholesterol HDL >or= 60 mg/dL High HDL Cholesterol Serum or plasma cholesterol in VLDL measurement (mass/volume)on 03-03-2022 Cholesterol in VLDL [Mass/Vol] 26 mg/dL 5-40 [facility] Work Phone: Serum or plasma creatinine m easurement (mass/volume)on 03-03-2022 Creatinine [Mass/Vol] 1.00 mg/dL 0.70-1.30 [facility] Work Phone: Comment on above: The validity of the calculated GFR & GFRAA in patients over 70 years has not been determined. Clinical correlation is essential. Serum or plasma low density lipoprotein (LDL) cholesterol measurement (mass/volume)on 03-03-2022 Cholesterol in LDL [Mass/Vol] 60 mg/dL 0-130 [facility] Work Phone: Serum or plasma urea nitroge n measurement (mass/volume)on 03-03-2022 Urea nitrogen [Mass/Vol] 21 mg/dL 7-18 [facility] Work Phone: Thin prep Papanicolaou smear with manual screeningon 03-03-2022 Thin prep Papanicolaou smear with manual screening 16 U/L 15-37 [facility] Work Phone: Thin prep Papanicolaou smear with manual screening 7 5-15 [facility] Work Phone: Whole blood hemoglobin A1c/t otal hemoglobin ratio (mass fraction)on 03-03-2022 HbA1c (Bld) [Mass fraction] 6.0 % 3.8-5.6 [facility] Work Phone: Comment on above: Normal < 5.7 % Predi abetic 5.7 - 6.4 % Diabetic >or= 6.5 % Please note range changes. Basophil percentageon 2021 Bilirubin [Mass/Vol] 0.80 mg/dL 0.20-1.00 [facility] Work Phone: Comment on above: For patients on eltr ombopag therapy, use of Dimension [place] TBIL is not recommended. Chloride [Moles/Vol] 102 mmol/L 98-107 [facility] Work Phone: Cholesterol [Mass/Vol] 130 mg/dL <200 [facility] Work Phone: Comment on above: <200 mg/dL Desirable 200-240 mg/dL Borderline >240 mg/dL High Risk Glucose [Mass/Vol] 154 mg/dL 74-106 [facility] Work Phone: Comment on above: Fasting Glucose resu lt greater than or equal to 126 mg/dL suggests DIABETES MELLITUS per A.D.A. criteria. Potassium [Moles/Vol] 3.9 mmol/L 3.5-5.1 [facility] Work Phone: Protein [Mass/Vol] 7.1 g/dL 6.4-8.2 [facility] Work Phone: Sodium [Moles/Vol] 137 mmol/L 136-145 [facility] Work Phone: Triglyceride [Mass/Vol] 211 mg/dL [facility] Work Phone: Comment on above: The drugs N-Acetylcy steine and Metamizole may falsely depress this assay.Serum Triglycerides Reference Interval Normal <150 mg/dL Borderline high 150 - 199 mg/dL High 200 - 499 mg/dL Very High > or = 500 mg/dL Laboratory - Chemistry and C hemistry - challengeon 12-03-2021 ALP [Catalytic activity/Vol] 55 U/L 45-117 [facility] Work Phone: ALT [Catalytic activity/Vol] 32 U/L 16-61 [facility] Work Phone: CO2 [Moles/Vol] 30.0 mmol/L 21.0-32.0 [facility] Work Phone: Globulin (S) [Mass/Vol] 3.3 g/dL 2.2-4.2 [facility] Work Phone: Magnesium [Mass/Vol] 1.9 mg/dL 1.6-2.6 [facility] Work Phone: Urea nitrogen/Creatinine [Mass ratio] 14.5 mg/mg 10-20 [facility] Work Phone: No Panel Informationon 12-03 Estimated GFR (MDRD) Amer 113 mL/min >60 [facility] Work Phone: Comment on above: GFR Calc Estimated GFR (MDRD) Non-Af Amer 94 mL/min >60 [facility] Work Phone: Comment on above: Non- GFR Calc Serum or plasma albumin jack urement (mass/volume)on 12-03-2021 Albumin [Mass/Vol] 3.8 g/dL 3.2-5.0 [facility] Work Phone: Serum or plasma albumin/glob ulin mass ratioon 12-03-2021 Albumin/Globulin [Mass ratio] 1.2 {ratio} 0.9-2.4 [facility] Work Phone: Serum or plasma calcium jack urement (mass/volume)on 12-03-2021 Calcium [Mass/Vol] 8.7 mg/dL 8.5-10.1 [facility] Work Phone: Serum or plasma cholesterol in HDL measurement (mass/volume)on 12-03-2021 Cholesterol in HDL [Mass/Vol] 41 mg/dL [facility] Work Phone: Comment on above: The drugs N-Acetylcy steine and Metamizole may falsely depress this assay. Reference Range HDL <40 mg/dL Low HDL Cholesterol HDL >or= 60 mg/dL High HDL Cholesterol Serum or plasma cholesterol in VLDL measurement (mass/volume)on 12-03-2021 Cholesterol in VLDL [Mass/Vol] 42 mg/dL 5-40 [facility] Work Phone: Serum or plasma creatinine m easurement (mass/volume)on 12-03-2021 Creatinine [Mass/Vol] 0.90 mg/dL 0.70-1.30 [facility] Work Phone: Comment on above: The validity of the calculated GFR & GFRAA in patients over 70 years has not been determined. Clinical correlation is essential. Serum or plasma low density lipoprotein (LDL) cholesterol measurement (mass/volume)on 12-03-2021 Cholesterol in LDL [Mass/Vol] 47 mg/dL 0-130 [facility] Work Phone: Serum or plasma urea nitroge n measurement (mass/volume)on 12-03-2021 Urea nitrogen [Mass/Vol] 13 mg/dL 7-18 [facility] Work Phone: Thin prep Papanicolaou smear with manual screeningon 12-03-2021 Thin prep Papanicolaou smear with manual screening 16 U/L 15-37 [facility] Work Phone: Thin prep Papanicolaou smear with manual screening 5 5-15 [facility] Work Phone: Whole blood hemoglobin A1c/t otal hemoglobin ratio (mass fraction)on 12-03-2021 HbA1c (Bld) [Mass fraction] 7.6 % 3.8-5.6 [facility] Work Phone: Comment on above: Normal < 5.7 % Predi abetic 5.7 - 6.4 % Diabetic >or= 6.5 % Please note range changes. Laboratory - Microbiology an d Antimicrobial susceptibilityon 11-11-2021 SARS-CoV-2 (COVID-19) RNA TY+probe Ql (Unsp spec) Not detected Not Detect [facility] Work Phone: Comment on above: Normal Reference Ran ge: Not DetectedMethod:(RT-PCR) real-time reverse transcriptase PCRLuminex MARVA Instrument*The Food and Drug Administration (FDA) has issued an Emergency Use Authorization (EAU) for the MARVA SARS-CoV-2 Assay for the rapid detection of [...] current medications (procedure) Done Invalid Interpretation Code [facility] Work Phone: Protein mass conc Done [facility] Work Phone: Tobacco smoking status NHIS Never smoker [facility] Work Phone: Tobacco use [facility] Never smoker Invalid Interpretation Code [facility] Work Phone: Office Visit: GILBERT: Yanira [email or web address].on 04-18-2017 Documentation of current medications (procedure) Done Invalid Interpretation Code [facility] Work Phone: Fall risk assessment No Invalid Interpretation Code [facility] Work Phone: Tobacco use HS Never smoker Invalid Interpretation Code [facility] Work Phone: Vital Signs Date Time Vital Sign Value Performing Clinician Matt ann 07-23-2025 12:43-0400 Body mass index (BMI) [Ratio] 34.22 kg/m2 Jabier Giron APRN.CNP Work Phone: [facility] 07-23-2025 12:43-0400 Body weight 106 kg Jabier Giron APRN.VETERINARY MEAT INSPECTOR Work Phone: [facility] 07-23-2025 12:43-0400 Diastolic blood pressure 77 mm[Hg] Jabier Giron APRN.VETERINARY MEAT INSPECTOR Work Phone: [facility] 07-23-2025 12:43-0400 Heart rate 66 /min Jabier Giron APRN.CNP Work Phone: [facility] 07-23-2025 12:43-0400 Systolic blood pressure 120 mm[Hg] Jabier Giron APRN.VETERINARY MEAT INSPECTOR Work Phone: [facility] 07-17-2025 14:07-0400 Body height 177.[address] Zach Perry MD Work Phone: 2(089)191-804523 [place] [address] 07-17-2025 14:07-0400 Body mass index (BMI) [Ratio] 33.7 kg/m2 Dr. Zach Perry MD Work Phone: 6(748)385-284223 [place] [address] 07-17-2025 14:07-0400 Body weight 106.[address] Zach Perry MD Work Phone: 4(154)228-387223 [place] [address] 07-17-2025 14:07-0400 Diastolic blood pressure 81 mm[Hg] Dr. Zach Perry MD Work Phone: 5(221)360-963523 [place] [address] 07-17-2025 14:07-0400 Heart rate 85 /min Dr. Zach Perry MD Work Phone: 0(016)683-179123 [place] [address] 07-17-2025 14:07-0400 SaO2% (BldA) [Mass fraction] 93 % Dr. Zach Perry MD Work Phone: 7(736)203-096523 [place] [address] 07-17-2025 14:07-0400 Systolic blood pressure 126 mm[Hg] Dr. Zach Perry MD Work Phone: 4(118)806-872523 [place] [address] 06-12-2025 15:32-0400 Body height 177.[address] Zach Perry MD Work Phone: 8(745)890-664023 [place] [address] 06-12-2025 15:32-0400 Body mass index (BMI) [Ratio] 33.9 kg/m2 Dr. Zach Perry MD Work Phone: 4(407)603-437323 [place] [address] 06-12-2025 15:32-0400 Body weight 107.[address] Zach Perry MD Work Phone: 3(603)384-352323 [place] [address] 04-16-2025 15:21-0400 Body height 177.[address] Zach Perry MD Work Phone: 6(430)865-906723 [place] [address] 04-16-2025 15:21-0400 Body mass index (BMI) [Ratio] 34.7 kg/m2 Dr. Zach Perry MD Work Phone: 6(741)474-937499 [place] [address] 04-16-2025 15:21-0400 Body weight 109.[address] Zach Perry MD Work Phone: 0(273)873-714999 [place] [address] 04-16-2025 15:21-0400 Diastolic blood pressure 83 mm[Hg] Dr. Zach Perry MD Work Phone: 2(138)056-262523 [place] [address] 04-16-2025 15:21-0400 Heart rate 85 /min Dr. Zach Perry MD Work Phone: 4(703)777-420823 [place] [address] 04-16-2025 15:21-0400 SaO2% (BldA) [Mass fraction] 93 % Dr. Zach Perry MD Work Phone: 4(889)104-768323 [place] [address] 04-16-2025 15:21-0400 Systolic blood pressure 144 mm[Hg] Dr. Zach Perry MD Work Phone: 3(224)857-397499 [place] [address] 08-15-2024 16:40-0400 Body mass index (BMI) [Ratio] 35.35 kg/m2 Charu Podlogar MEDICAL WRITER.VETERINARY MEAT INSPECTOR Work Phone: [facility] 08-15-2024 16:40-0400 Body weight 109.5 kg Charu Podlogar MEDICAL WRITER.VETERINARY MEAT INSPECTOR Work Phone: [facility] 08-15-2024 16:40-0400 Diastolic blood pressure 84 mm[Hg] Charu Podlogar MEDICAL WRITER.VETERINARY MEAT INSPECTOR Work Phone: [facility] 08-15-2024 16:40-0400 Heart rate 81 /min Charu Podlogar MEDICAL WRITER.VETERINARY MEAT INSPECTOR Work Phone: [facility] 08-15-2024 16:40-0400 Respiratory rate 18 /min Charu Podlogar MEDICAL WRITER.VETERINARY MEAT INSPECTOR Work Phone: [facility] 08-15-2024 16:40-0400 SaO2% (BldA) [Mass fraction] 94 % Charu Podlogar MEDICAL WRITER.VETERINARY MEAT INSPECTOR Work Phone: [facility] 08-15-2024 16:40-0400 Systolic blood pressure 132 mm[Hg] Charu Pérez APRN.VETERINARY MEAT INSPECTOR Work Phone: [facility] 08-15-2023 14:40-0400 Body weight 112.31 kg Jeff Perry MD Work Phone: [facility] 08-15-2023 14:40-0400 Diastolic blood pressure 72 mm[Hg] Jeff Perry MD Work Phone: [facility] 08-15-2023 14:40-0400 Heart rate 93 /min Jeff Perry MD Work Phone: [facility] 08-15-2023 14:40-0400 Respiratory rate 16 /min Jeff Perry MD Work Phone: [facility] 08-15-2023 14:40-0400 SaO2% (BldA) [Mass fraction] 94 % Jeff Perry MD Work Phone: [facility] 08-15-2023 14:40-0400 Systolic blood pressure 120 mm[Hg] Jeff Perry MD Work Phone: [facility] 05-25-2023 15:38-0400 Body height 180.[address] Zach Perry Work Phone: [facility] 05-25-2023 15:38-0400 Body mass index (BMI) [Ratio] 33.7 kg/m2 Dr. Zach Perry Work Phone: [facility] 05-25-2023 15:38-0400 Body weight 109.[address] Zach Perry Work Phone: [facility] 05-25-2023 15:38-0400 Diastolic blood pressure 73 mm[Hg] Dr. Zach Perry Work Phone: [facility] 05-25-2023 15:38-0400 Heart rate 75 /min Dr. Zach Perry Work Phone: 5(917)413-079423 [place] [address] 05-25-2023 15:38-0400 Respiratory rate 18 /min Dr. Zach Perry Work Phone: 1(036)007-241823 [place] [address] 05-25-2023 15:38-0400 SaO2% (BldA) [Mass fraction] 95 % Dr. Zach Perry Work Phone: 9(758)385-279123 [place] [address] 05-25-2023 15:38-0400 Systolic blood pressure 125 mm[Hg] Dr. Zach Perry Work Phone: 6(516)288-788323 [place] [address] 04-18-2023 14:07-0400 Body mass index (BMI) [Ratio] 34 kg/m2 Dr. Zach Perry Work Phone: 7(345)264-175023 [place] [address] 04-18-2023 14:07-0400 Body temperature 98.4 [degF] Dr. Zach Perry Work Phone: 9(667)291-186923 [place] [address] 04-18-2023 14:07-0400 Body weight 110.[address] Zach Perry Work Phone: 6(106)754-393123 [place] [address] 04-18-2023 14:07-0400 Diastolic blood pressure 76 mm[Hg] Dr. Zach Perry Work Phone: 1(489)328-760823 [place] [address] 04-18-2023 14:07-0400 Heart rate 78 /min Dr. Zach Perry Work Phone: 2(804)890-842523 [place] [address] 04-18-2023 14:07-0400 Respiratory rate 16 /min Dr. Zach Perry Work Phone: 6(631)522-510523 [place] [address] 04-18-2023 14:07-0400 SaO2% (BldA) [Mass fraction] 97 % Dr. Zach Perry Work Phone: 9(915)024-953523 [place] [address] 04-18-2023 14:07-0400 Systolic blood pressure 118 mm[Hg] Dr. Zach Perry Work Phone: 7(025)762-552223 [place] [address] 10-24-2022 12:25-0500 Diastolic blood pressure 87 mm[Hg] Dr. Zach Perry Work Phone: [facility] Work Phone: 10-24-2022 12:25-0500 Heart rate 56 /min Dr. Zach Perry Work Phone: [facility] Work Phone: 10-24-2022 12:25-0500 Respiratory rate 16 /min Dr. Zach Perry Work Phone: [facility] Work Phone: 10-24-2022 12:25-0500 SaO2% (BldA) [Mass fraction] 95 % Dr. Zach Perry Work Phone: [facility] Work Phone: 10-24-2022 12:25-0500 Systolic blood pressure 114 mm[Hg] Dr. Zach Perry Work Phone: [facility] Work Phone: 10-24-2022 09:00-0500 Body temperature 97.1 [degF] Dr. Zach Perry Work Phone: [facility] Work Phone: 10-23-2022 01:53-0500 Body height 180.[address] Zach Perry Work Phone: [facility] Work Phone: 10-23-2022 01:53-0500 Body mass index (BMI) [Ratio] 33.1 kg/m2 Dr. Zach Perry Work Phone: [facility] Work Phone: 10-23-2022 01:53-0500 Body weight 107.[address] Zach Perry Work Phone: [facility] Work Phone: 10-23-2022 01:33-0500 Body temperature 98.4 [degF] Dr. Zach Perry Work Phone: [facility] Work Phone: 10-23-2022 01:33-0500 Diastolic blood pressure 79 mm[Hg] Dr. Zach Perry Work Phone: [facility] Work Phone: 10-23-2022 01:33-0500 Heart rate 97 /min Dr. Zach Perry Work Phone: [facility] Work Phone: 10-23-2022 01:33-0500 Respiratory rate 15 /min Dr. Zach Perry Work Phone: [facility] Work Phone: 10-23-2022 01:33-0500 SaO2% (BldA) [Mass fraction] 94 % Dr. Zach Perry Work Phone: [facility] Work Phone: 10-23-2022 01:33-0500 Systolic blood pressure 157 mm[Hg] Dr. Zach Perry Work Phone: [facility] Work Phone: 10-22-2022 22:25-0500 Body height 180.[address] Zach Perry Work Phone: [facility] Work Phone: 10-22-2022 22:25-0500 Body mass index (BMI) [Ratio] 32.8 kg/m2 Dr. Zach Perry Work Phone: [facility] Work Phone: 10-22-2022 22:25-0500 Body weight 106.[address] Zach Perry Work Phone: [facility] Work Phone: 09-08-2022 08:00-0400 Body mass index (BMI) [Ratio] 33.3 kg/m2 Dr. Zach Perry Work Phone: [facility] Work Phone: 09-08-2022 08:00-0400 Body weight 108.[address] Zach Perry Work Phone: [facility] Work Phone: 09-08-2022 08:00-0400 Diastolic blood pressure 80 mm[Hg] Dr. Zach Perry Work Phone: [facility] Work Phone: 09-08-2022 08:00-0400 Heart rate 93 /min Dr. Zach Perry Work Phone: [facility] Work Phone: 09-08-2022 08:00-0400 Respiratory rate 18 /min Dr. Zach Perry Work Phone: [facility] Work Phone: 09-08-2022 08:00-0400 SaO2% (BldA) [Mass fraction] 95 % Dr. Zach Perry Work Phone: [facility] Work Phone: 09-08-2022 08:00-0400 Systolic blood pressure 153 mm[Hg] Dr. Zach Perry Work Phone: [facility] Work Phone: 08-11-2022 15:42-0400 Body weight 107.59 kg Charu Podlogar MEDICAL WRITER.VETERINARY MEAT INSPECTOR Work Phone: [facility] 08-11-2022 15:42-0400 Diastolic blood pressure 80 mm[Hg] Charu Podlogar MEDICAL WRITER.VETERINARY MEAT INSPECTOR Work Phone: [facility] 08-11-2022 15:42-0400 Heart rate 97 /min Charu Podlogar MEDICAL WRITER.VETERINARY MEAT INSPECTOR Work Phone: [facility] 08-11-2022 15:42-0400 Respiratory rate 16 /min Charu Podlogar MEDICAL WRITER.VETERINARY MEAT INSPECTOR Work Phone: [facility] 08-11-2022 15:42-0400 SaO2% (BldA) [Mass fraction] 96 % Hcaru Podlogar MEDICAL WRITER.VETERINARY MEAT INSPECTOR Work Phone: [facility] 08-11-2022 15:42-0400 Systolic blood pressure 134 mm[Hg] Charu Pérez APRN.VETERINARY MEAT INSPECTOR Work Phone: [facility] 04-12-2022 13:54-0400 Body height 180.[address] Zach Perry Work Phone: [facility] Work Phone: 04-12-2022 13:54-0400 Body mass index (BMI) [Ratio] 32.9 kg/m2 Dr. Zach Perry Work Phone: [facility] Work Phone: 04-12-2022 13:54-0400 Body temperature 96.7 [degF] Dr. Zach Perry Work Phone: [facility] Work Phone: 04-12-2022 13:54-0400 Body weight 107.[address] Zach Perry Work Phone: [facility] Work Phone: 04-12-2022 13:54-0400 Diastolic blood pressure 76 mm[Hg] Dr. Zach Perry Work Phone: [facility] Work Phone: 04-12-2022 13:54-0400 Heart rate 67 /min Dr. Zach Perry Work Phone: [facility] Work Phone: 04-12-2022 13:54-0400 Respiratory rate 14 /min Dr. Zach Perry Work Phone: [facility] Work Phone: 04-12-2022 13:54-0400 SaO2% (BldA) [Mass fraction] 96 % Dr. Zach Perry Work Phone: [facility] Work Phone: 04-12-2022 13:54-0400 Systolic blood pressure 130 mm[Hg] Dr. Zach Perry Work Phone: [facility] Work Phone: 02-17-2022 14:22-0400 Body height 180.[address] Zach Perry Work Phone: [facility] Work Phone: 02-17-2022 14:22-0400 Body mass index (BMI) [Ratio] 32.6 kg/m2 Dr. Zach Perry Work Phone: [facility] Work Phone: 02-17-2022 14:22-0400 Body weight 106.[address] Zach Perry Work Phone: [facility] Work Phone: 02-17-2022 14:22-0400 Diastolic blood pressure 77 mm[Hg] Dr. Zach Perry Work Phone: [facility] Work Phone: 02-17-2022 14:22-0400 Heart rate 74 /min Dr. Zach Perry Work Phone: [facility] Work Phone: 02-17-2022 14:22-0400 Respiratory rate 16 /min Dr. Zach Perry Work Phone: [facility] Work Phone: 02-17-2022 14:22-0400 SaO2% (BldA) [Mass fraction] 96 % Dr. Zach Perry Work Phone: [facility] Work Phone: 02-17-2022 14:22-0400 Systolic blood pressure 127 mm[Hg] Dr. Zach Perry Work Phone: [facility] Work Phone: 05-06-2017 13:22-0400 BMI (Body Mass Index) 32.77 kg/m2 [facility] Work Phone: 05-06-2017 13:22-0400 Weight 106.[address] [facility] Work Phone: 04-18-2017 13:47-0400 BMI (Body Mass Index) 33.8 kg/m2 Joselyn Finnegan LPN [facility] Work Phone: 04-18-2017 13:47-0400 Body Temperature 98.3 [degF] Joselyn Finnegan LPN [facility] Work Phone: 04-18-2017 13:47-0400 BP Diastolic 88 mm[Hg] Joselyn Finnegan LPN [facility] Work Phone: 04-18-2017 13:47-0400 BP Systolic 130 mm[Hg] Joselyn Finnegan LPN [facility] Work Phone: 04-18-2017 13:47-0400 Height 180.34 cm Joselyn Finnegan LPN [facility] Work Phone: 04-18-2017 13:47-0400 Pulse (Heart Rate) 82 /min Joselyn Finnegan LPN [facility] Work Phone: 04-18-2017 13:47-0400 Pulse Oximetry 98 % Joselyn Finnegan LPN [facility] Work Phone: 04-18-2017 13:47-0400 Respiratory Rate 12 /min Joselyn Finnegan LPN [facility] Work Phone: 04-18-2017 13:47-0400 Weight 109.95 kg Joselyn Finnegan LPN [facility] Work Phone: Encounters Encounter Date Encounter Type Care Provider Facility Start: 08-23-2025 [facility] Facility :[facility] Start: 08-20-2025 ambulatory [facility] Facility :[facility] Start: 08-01-2025 [facility] Facility :[facility] Start: 07-30-2025 Encounter for other preprocedural examination [facility] Start: 07-23-2025 End: 07-23-2025 ambulatory JABIER GIRON Facility:[facility] Start: 07-23-2025 End: 07-23-2025 Patient encounter procedure Jabier Giron APRN.CNP Work Phone: [facility] Comment on above: Annual physical exam (Primary Dx); Type 2 diabetes mellitus without complication, without long-term current use of insulin (HCC); Atrial fibrillation, unspecified type (HCC); Hyperlipidemia LDL goal <100; Hypertension, essential; Screening for depression; Encounter for screening examination for other mental health and behavioral disorders Start: 07-19-2025 ambulatory Emigdio Blake Facility :[facility] Start: 07-17-2025 End: 07-17-2025 Patient encounter procedure Emigdio HU -[facility] Work Phone: Start: 07-17-2025 End: 07-17-[address] Zach Perry MD Work Phone: -[facility] Start: 06-12-2025 End: 06-12-[address] Zach Perry MD Work Phone: -[facility] Start: 06-12-2025 End: 06-12-[address] Jose Martini DO -[facility] Work Phone: Start: 06-12-2025 End: 06-12-2025 ambulatory Jose [facility] Facility:[facility] Start: 04-16-2025 End: 04-16-[address] Kike Mccoy MD -[facility] Work Phone: Start: 04-16-2025 End: 04-16-[address] Zach Perry MD Work Phone: [facility] Work Phone: Start: 12-21-2024 ambulatory Zach Gutierrez lity:[facility] Start: 12-19-2024 End: 12-19-[address] Jose Martini DO -[facility] Work Phone: Start: 12-19-2024 End: 12-19-2024 ambulatory Zach Perry Facility:[facility] Start: 12-12-2024 End: 12-12-2024 ambulatory Zach Vicky Facility:[facility] Start: 12-05-2024 End: 12-05-2024 ambulatory Zach Perry Facility:[facility] Start: 11-08-2024 End: 11-08-2024 Telephone encounter Jeff Perry MD Work Phone: [facility] Comment on above: Results Start: 11-03-2024 End: 11-03-2024 ambulatory Zach Perry Facility:[facility] Start: 10-30-2024 End: 10-30-2024 Telephone encounter Jeff Perry MD Work Phone: [facility] Comment on above: Results Start: 10-22-2024 End: 10-22-2024 ambulatory Zach Perry Facility:[facility] Start: 08-22-2024 End: 09-26-2024 Telephone encounter Jeff Perry MD Work Phone: [facility] Comment on above: Results Start: 08-15-2024 End: 08-15-2024 Patient encounter procedure Charu Pérez APRN.CNP Work Phone: [facility] Comment on above: Hypertension, essent ial (Primary Dx); Type 2 diabetes mellitus without complication, without long-term current use of insulin (HCC); Hyperlipidemia LDL goal <100; Atrial fibrillation, unspecified type (HCC) Start: 08-15-2024 End: 08-15-2024 ambulatory JEFF PERRY Facility:[facility] Start: 08-13-2024 ambulatory Zach Perry Faci lity:[facility] Start: 08-13-2024 End: 08-13-2024 [facility] Start: 08-01-2024 End: 08-01-2024 Refill Jeff Perry MD Work Phone: [facility] Comment on above: Refill Request Start: 07-30-2024 End: 07-31-2024 Telephone encounter Charu Beto MALIK Work Phone: [facility] Comment on above: Orders (PSA) Start: 12-15-2023 End: 12-15-2023 ambulatory [facility] Work Phone: Start: 12-15-2023 End: 12-15-2023 Patient encounter procedure [facility]-Laboratory Work Phone: Start: 08-15-2023 End: 08-15-2023 Patient encounter procedure Jeff Perry MD Work Phone: [facility] Comment on above: Annual physical exam (Primary [...] 06-10-[address] Zach Perry Work Phone: [facility] Work Phone: Start: 06-10-2023 End: 06-10-[address] Zach Perry Work Phone: [facility]-Radiology, [facility] Work Phone: Start: 05-25-2023 End: 05-25-[address] Zach Perry Work Phone: [facility] Work Phone: Start: 04-18-2023 End: 04-18-[address] Zach Perry Work Phone: [facility] Work Phone: Start: 04-13-2023 End: 04-13-[address] Zach Perry Work Phone: [facility]-Laboratory Work Phone: Start: 02-11-2023 Refill Jeff Perry MD Work Phone: [facility] Comment on above: Refill Request; Refi ll Request Start: 01-24-2023 Refill Jeff Perry MD Work Phone: [facility] Comment on above: Refill Request Start: 11-09-2022 Refill Jeff Perry MD Work Phone: [facility] Comment on above: Refill Request Start: 10-23-2022 Non-patient / Non-visit Dr. Bethany Perry Work Phone: [facility] Start: 10-23-2022 Non-patient / Non-visit Dr. Bethany Perry Work Phone: [facility] Start: 10-23-2022 End: 10-24-2022 Evaluation and management of inpatient Dr. Zach Perry Work Phone: [facility]-Progressive Care Unit Start: 09-08-2022 End: 09-08-[address] Zach Perry Work Phone: [facility] Start: 08-11-2022 End: 08-11-2022 Patient encounter procedure Charu Pérez APRN.CNP Work Phone: [facility] Comment on above: Hypertension, essent ial (Primary Dx); Family history of skin cancer; Acute pain of right knee; Type 2 diabetes mellitus without complication, without long-term current use of insulin (HCC); Hyperlipidemia LDL goal <100 Start: 08-05-[address] Reji Perry Work Phone: [facility] Start: 08-05-2022 End: 08-05-[address] Zach Perry Work Phone: [facility] Work Phone: Start: 08-05-2022 End: 08-05-[address] Zach Perry Work Phone: [facility]-Laboratory Start: 07-27-2022 Telephone encounter Zach Perry MD Work Phone: [facility] Comment on above: requesting lab order Start: 06-18-2022 Refill Jeff Perry MD Work Phone: [facility] Comment on above: Refill Request Start: 04-12-2022 Refill Jeff Perry MD Work Phone: [facility] Comment on above: Refill Request Start: 04-12-2022 End: 04-12-[address] Zach Perry Work Phone: [facility] Start: 03-08-2022 Telephone encounter Charu castro APRN.CNP Work Phone: [facility] Comment on above: Results Start: 03-03-2022 End: 03-03-[address] Zach Perry Work Phone: [facility]Laboratory Start: 02-17-2022 Telephone encounter Zach Perry MD Work Phone: [facility] Comment on above: Fax requested Start: 02-17-2022 End: 02-17-[address] Zach Perry Work Phone: [facility] Start: 02-03-2022 Non-patient / Non-visit Dr. Bethany Perry Work Phone: [facility] Start: 01-27-2022 Refill Jeff Perry MD Work Phone: [facility] Comment on above: Refill Request Request to fax lab o rders to [facility] Start: 12-08-2021 Non-patient / Non-visit Dr. Bethany Perry Work Phone: [facility] Start: 12-08-2021 End: 12-08-[address] [facility]cah Perry [facility] Start: 12-07-2021 Non-patient / Non-visit Dr. Bethany Perry Work Phone: [facility] Start: 12-07-2021 End: 12-07-[address] Zach [facility] Start: 12-03-2021 End: 12-03-[address] Zach Perry Work Phone: [facility]Laboratory Start: 12-02-2021 Telephone encounter Charu acstro MEDICAL WRITER.VETERINARY MEAT INSPECTOR Work Phone: [facility] [place] Comment on above: Results Start: 11-11-[address] Reji Perry Work Phone: [facility] Start: 11-11-2021 End: 11-11-[address] Zach Perry Work Phone: [facility] Procedures Date Procedure Procedure Detail Performing Clinician Start: 07-23-2025 Adult depression screening assessment Jabier Giron APRN.VETERINARY MEAT INSPECTOR Work Phone: Start: 06-12-2025 X-ray of knee, four or more views Dr. Zach Perry MD Work Phone: Start: 06-10-2023 Plain chest X-ray Dr. Teodoro [...] Detail Author Start: 07-22-2031 Urine microalbumin profile [facility] Start: 08-26-2026 Colonoscopy COLONOSCOPY [facility] Start: 08-26-2026 COLORECTAL CANCER SCREENING COLORECTAL CANCER SCREENING [facility] Start: 08-26-2026 Screening for malign ant neoplasm of colon [facility] Start: 07-23-2026 Annual PCP Team Skiving Machine Operator billy Disease Visit Annual PCP Team Chronic Disease Visit [facility] Start: 07-23-2026 Anxiety Screening Anxiety Screening [facility] Start: 07-23-2026 Depression Screening Depression Scre ening [facility] Start: 07-19-2026 Diabetic foot examination Diabetic F oot Exam [facility] Start: 07-19-2026 Hepatitis B screening Urine Albumin:Creatinine Ratio [facility] Start: 07-19-2026 Hepatitis B surface antibody level LDL Cholesterol [facility] Start: 05-22-2026 Glaucoma screening Dilated Retinal E xam [facility] Start: 01-16-2026 Hemoglobin A1c measurement HbA1C [facility] Start: 12-24-2025 PROSTATE CANCER SCRE ENING DISCUSSION PROSTATE CANCER SCREENING DISCUSSION [facility] Start: 12-24-2025 Prostate specific an tigen measurement Prostate Cancer Screening Discussion [facility] Start: 08-15-2025 Annual PCP Team Skiving Machine Operator billy Disease Visit Annual PCP Team Chronic Disease Visit [facility] Start: 08-15-2025 Covid-19 Vaccine ( season) Covid-19 Vaccine ( season) [facility] Comment on above: Postponed from 07/08 (Declined at this time) Start: 08-15-2025 Diabetic foot examination Diabetic F oot Exam [facility] Start: 07-08-2025 Influenza vaccination Influenza Vacc ine (#1) [facility] Start: 06-12-2025 X-ray of knee, four or more views Knee 4 or More Views [facility] Start: 06-12-2025 XR Knee GE [address] [facility] Start: 05-06-2025 Influenza vaccination Influenza Vacc ine (#1) [facility] Comment on above: Postponed from 07/08 (Declined at this time) Start: 09-22-2024 End: 12-22-2024 Urinalysis complete panel - Urine URINALYSIS, WITH MICROSCOPIC Lab Routine Proteinuria, unspecified type Expected: 09/22/2024, Expires: 12/22/2024 [facility] Work Phone: Comment on above: Expected: 09/22/2024 , Expires: 12/22/2024 Start: 08-15-2024 End: 08-15-2024 Patient encounter procedure 08/15/2024 5:00 PM EDT Office Visit [facility] [address] [place], [place] [id number] [employer]u APRN.VETERINARY MEAT INSPECTOR [address] [place] [address] diabetic med check [facility] Comment on above: diabetic med check Start: 08-15-2024 3 comp foot exam completed Diabetic Foot Exam [facility] Start: 08-15-2024 Annual PCP Team Skiving Machine Operator billy Disease Visit Annual PCP Team Chronic Disease Visit [facility] Start: 08-15-2024 BP Controlled (<130/80) BP Con trolled (<130/80) [facility] Start: 08-15-2024 Covid-19 Vaccine ( season) Covid-19 Vaccine () [facility] Comment on above: Postponed from 07/08 (Declined at this time) Start: 08-15-2024 Diabetic foot examination Diabetic F oot Exam [facility] Start: 08-15-2024 Hepatitis B Vaccine (1 of 3 - 19+ 3-dose series) Hepatitis B Vaccine (1 of 3 - 19+ 3-dose series) [facility] Comment on above: Postponed from 04/09 (Declined at this time) Start: 08-15-2024 Hepatitis B Vaccine (1 of 3 - 3-dose series) Hepatitis B Vaccine (1 of 3 - 3-dose series) [facility] Comment on above: Postponed from 04/09 (Declined at this time) Start: 08-15-2024 Pneumococcal vaccination [facility] Comment on above: Postponed from 04/09 (Declined at this time) Start: 08-15-2024 Shingrix Vaccine (1 of 2) [place] grix Vaccine (1 of 2) [facility] Comment on above: Postponed from 04/09 (Declined at this time) Start: 08-09-2024 Hepatitis B surface antibody level LDL Cholesterol [facility] Start: 07-31-2024 End: 10-30-2024 CBC W Auto Differential panel - Blood COMPLETE BLOOD COUNT AND DIFFERENTIAL Lab Routine Type 2 diabetes mellitus without complication, without long-term current use of insulin (HCC) Expected: 07/31/2024, Expires: 10/30/2024 [facility] Comment on above: Expected: 07/31/2024 , Expires: 10/30/2024 Start: 07-31-2024 End: 10-30-2024 Comprehensive metabolic 2000 panel - Serum or Plasma COMPREHENSIVE METABOLIC PANEL Lab Routine Type 2 diabetes mellitus without complication, without long-term current use of insulin (HCC) Expected: 07/31/2024, Expires: 10/30/2024 [facility] Comment on above: Expected: 07/31/2024 , Expires: 10/30/2024 Start: 07-31-2024 End: 10-30-2024 Hemoglobin A1c in Blood HEMOGLOBIN A1C Lab Routine Type 2 diabetes mellitus without complication, without long-term current use of insulin (HCC) Expected: 07/31/2024, Expires: 10/30/2024 [facility] Comment on above: Expected: 07/31/2024 , Expires: 10/30/2024 Start: 07-31-2024 End: 10-30-2024 Lipid 1996 panel - Serum or Plasma LIPID PANEL BASIC Lab Routine Type 2 diabetes mellitus without complication, without long-term current use of insulin (HCC) Expected: 07/31/2024, Expires: 10/30/2024 [facility] Work Phone: Comment on above: Expected: 07/31/2024 , Expires: 10/30/2024 Start: 07-31-2024 End: 10-30-2024 Prostate specific Ag [Mass/volume] in Serum or Plasma PROSTATE-SPECIFIC ANTIGEN DIAGNOSTIC Lab Routine Screening for prostate cancer Expected: 07/31/2024, Expires: 10/30/2024 [facility] Comment on above: Expected: 07/31/2024 , Expires: 10/30/2024 Start: 07-08-2024 Covid-19 Vaccine ( season) Covid-19 Vaccine ( season) [facility] Start: 07-08-2024 Influenza vaccination Influenza Vacc ine (#1) [facility] Start: 05-06-2024 Influenza vaccination Influenza Vacc ine (#1) [facility] Comment on above: Postponed from 07/08 (Declined at this time) Start: 02-11-2024 Glaucoma screening Dilated Retinal E xam [facility] Start: 02-11-2024 Hepatitis C antibody , confirmatory test DILATED RETINAL EXAM [facility] Start: 10-25-2023 Hepatitis B screening Urine Albumin:Creatinine Ratio [facility] Comment on above: Postponed from 02/13 (Declined at this time) Start: 10-13-2023 Hemoglobin A1c measurement HbA1C [facility] Start: 10-13-2023 Hemoglobin A1c/Hemoglobin.total in Blood HbA1C [facility] Start: 08-11-2023 3 comp foot exam completed DIABETIC FOOT EXAM [facility] Start: 08-11-2023 ANNUAL PCP TEAM TAB CUTTER BILLY DISEASE VISIT ANNUAL PCP TEAM CHRONIC DISEASE VISIT [facility] Start: 07-08-2023 Influenza vaccination INFLUENZ A (Season Ended) [facility] Start: 12-02-2022 ANNUAL PCP TEAM TAB CUTTER BILLY DISEASE VISIT ANNUAL PCP TEAM CHRONIC DISEASE VISIT [facility] Start: 11-07-2022 DEPRESSION ASSESSMENT DEPRESSION ASS ESSMENT [facility] Start: 10-25-2022 Blood chemistry [facility] Work Phone: Start: 10-24-2022 Patient discharge [facility] Work Phone: Start: 10-23-2022 End: 10-23-2022 Care planning and problem solving actions [facility] Work Phone: Start: 10-23-2022 Application of intermittent pneumatic compression device [facility] Work Phone: Start: 10-23-2022 Following clinical pathway protocol [facility] Work Phone: Start: 10-23-2022 Assessment of risk o f venous thromboembolism [facility] Work Phone: Start: 10-23-2022 Care regimes management [facility] Work Phone: Start: 10-23-2022 Incentive spirometry [facility] Work Phone: Start: 10-23-2022 Inhalation therapy procedure [facility] Work Phone: Start: 10-23-2022 Insertion of cathete r into peripheral vein [facility] Work Phone: Start: 10-23-2022 Measuring intake and output [facility] Work Phone: Start: 10-23-2022 Providing care accor ding to standard [facility] Work Phone: Start: 10-23-2022 Provision of activit y privileges [facility] Work Phone: Start: 10-23-2022 [facility] Work Phone: Start: 10-23-2022 Verification routine [facility] Work Phone: Start: 10-23-2022 Admission procedure [facility] Work Phone: Start: 10-22-2022 [facility] Work Phone: Start: 09-08-2022 Hepatitis C antibody , confirmatory test DILATED RETINAL EXAM [facility] Start: 08-11-2022 End: 10-11-2022 ALBUMIN/CREAT RATIO RND UR ALBUMIN/CREAT RATIO RND UR Lab Routine Type 2 diabetes mellitus without complication, without long-term current use of insulin (HCC) Expected: 08/11/2022, Expires: 10/11/2022 [facility] Work Phone: Comment on above: Expected: 08/11/2022 , Expires: 10/11/2022 Start: 07-30-2022 End: 09-29-2022 PSA/PROSTSPECAG SCRN PSA/PROSTSPECAG SCRN Lab Routine Screening for prostate cancer Expected: 07/30/2022, Expires: 09/29/2022 [facility] Work Phone: Comment on above: Expected: 07/30/2022 , Expires: 09/29/2022 Start: 07-22-2022 3 comp foot exam completed DIABETIC FOOT EXAM [facility] Start: 07-22-2022 Adult depression screening assessment DEPRESSION SCREENING [facility] Start: 07-22-2022 ONE PNEUMOVAX PRIOR TO AGE 65 ONE PNEUMOVAX PRIOR TO AGE 65 [facility] Comment on above: Postponed from 04/09 (Declined at this time) Start: 07-22-2022 PNEUMOCOCCAL (1 - PCV) PNEUMOCOCCAL (1 - PCV) [facility] Comment on above: Postponed from 04/09 (Declined at this time) Start: 07-08-2022 Influenza vaccination INFLUENZA (#1) [facility] Start: 01-13-2022 Hemoglobin A1c/Hemoglobin.total in Blood HBA1C [facility] Start: 12-24-2021 Hepatitis B surface antibody level LDL CHOLESTEROL [facility] Start: 11-07-2021 DEPRESSION ASSESSMENT DEPRESSION ASS ESSMENT [facility] Start: 05-07-2021 COVID-19 VACCINE (3 - Booster for Moderna series) COVID-19 VACCINE (3 - Booster for Moderna series) [facility] Start: 02-02-2021 COVID-19 VACCINE (3 - Booster for Moderna series) COVID-19 VACCINE (3 - Booster for Moderna series) [facility] Start: 02-13-2019 Hepatitis B screening URINE ALBUMIN:CREATININE RATIO [facility] Start: 05-06-2017 End: 05-06-2017 X-ray exam, knee, 4 or more X-Ray, Knee [facility] Work Phone: Start: 04-18-2017 End: 04-18-2017 Appointment Appointment [facility] Work Phone: Start: 2017 SHINGRIX VACCINE (1 of 2) [place] GRIX VACCINE (1 of 2) [facility] Start: 2012 COLOGUARD (FIT-DNA) COLOGUARD (FIT-D NA) [facility] Start: [address] COLONOGRAPHY [facility] Start: 2012 FECAL OCCULT BLOOD FECAL OCCULT BLOO D [facility] Start: 2012 Screening for malign ant neoplasm of colon [facility] Start: [address] [facility] Start: 1986 HEPATITIS B (1 of 3 - Risk 3-dose series) HEPATITIS B (1 of 3 - Risk 3-dose series) [facility] Start: 1986 Hepatitis B Vaccine (1 of 3 - 19+ 3-dose series) Hepatitis B Vaccine (1 of 3 - 19+ 3-dose series) [facility] Start: 1986 Pneumococcal Vaccine : 50+ (1 of 2 - PCV) Pneumococcal Vaccine: 50+ (1 of 2 - PCV) [facility] Start: 1985 Anxiety Screening Anxiety Screening [facility] Start: 1985 BP CONTROLLED (<130/80) BP CON TROLLED (<130/80) [facility] Start: 1985 Depression Screening Depression Scre ening [facility] Start: 1973 PNEUMOCOCCAL (1 - PCV) PNEUMOCOCCAL (1 - PCV) [facility] Start: 1973 Pneumococcal vaccination Pneum ococcal Vaccine (1 of 2 - PCV) [facility] Start: 1967 HEPATITIS B (1 of 3 - 3-dose series) HEPATITIS B (1 of 3 - 3-dose series) [facility] Bilirubin measuremen t, urine [facility] Work Phone: Comprehensive metabo lic 1999 panel - Serum or Plasma [facility] Hemoglobin [Presence ] in Urine [facility] Work Phone: Hemoglobin A1c/Hemoglobin.total in Blood [facility] Lipid 1995 panel - S vick or Plasma [facility] Lipid 1995 panel - S [facility] or Plasma [facility] Measurement of keton es in urine using dipstick [facility] Work Phone: Patient Education [facility] Work Phone: Patient referral [facility] Work Phone: pH of Urine [facility] Work Phone: Prostate specific an tigen measurement [facility] Specific gravity of Urine [facility] Work Phone: Thyroid stimulating hormone measurement [facility] Thyroid stimulating hormone measurement [facility] Urine dipstick for glucose [facility] Work Phone: Urine dipstick for leukocyte esterase [facility] [facility] Work Phone: Urine dipstick for nitrite [facility] Work Phone: Urine dipstick for protein [facility] Work Phone: Urine examination [facility] Work Phone: Urine microalbumin/creatinine ratio measurement [facility] Urine microalbumin/creatinine ratio measurement [facility] Urobilinogen [Presen ce] in Urine [facility] Work Phone: End: 11-29-2025 US Kidney - bilateral and Urinary bladder US KIDNEY/BLADDER Radiology Routine Proteinuria, unspecified type 1 Occurrences starting 10/30/2024 until 11/29/2025 [facility] Work Phone: Comment on above: 1 Occurrences starti ng 10/30/2024 until 11/29/2025 Vitamin D, 25-hydrox y measurement [facility] End: 09-10-2023 XR KNEE GENERAL 4V AP BOTH/PA BOTH/LAT/MERC RIGHT XR KNEE GENERAL 4V AP BOTH/PA BOTH/LAT/MERC RIGHT Radiology Routine Acute pain of right knee 1 Occurrences starting 08/11/2022 until 09/10/2023 [facility] Work Phone: Comment on above: 1 Occurrences starti ng 08/11/2022 until 09/10/2023 [facility] Immunizations Immunization Date Immunization Notes Care Provider Juan Carlos holm 10-01-2024 influenza, seasonal, injectable, preservative free Dr. Zach Perry MD Work Phone: [facility] 10-01-2024 influenza virus vaccine, unspecified formulation Jabier Giron APRN.VETERINARY MEAT INSPECTOR Work Phone: [facility] 09-26-2023 influenza, injectabl e, quadrivalent, preservative free [facility] 09-26-2023 influenza virus vaccine, unspecified formulation Charu Pérez APRN.VETERINARY MEAT INSPECTOR Work Phone: [facility] 10-05-2022 influenza, injectabl e, quadrivalent, preservative free [facility] 10-05-2022 influenza, seasonal, injectable Dr. Zach Perry Work Phone: [facility] 10-05-2022 influenza virus vaccine, unspecified formulation Jeff Perry MD Work Phone: [facility] 09-17-2021 influenza, injectabl e, quadrivalent, preservative free [facility] 09-17-2021 influenza, seasonal, injectable Dr. Zach Perry Work Phone: [facility] 09-17-2021 influenza, seasonal, injectable, preservative free Jeff Perry MD Work Phone: [facility] Work Phone: 07-22-2021 tetanus toxoid, reduced diphtheria toxoid, and acellular pertussis vaccine, adsorbed Jeff Perry MD Work Phone: [facility] 12-08-2020 COVID-19 vaccine, fu ll dose (MODERNA) Jeff Perry MD Work Phone: [facility] 11-10-2020 COVID-19 vaccine, fu ll dose (MODERNA) Jeff Perry MD Work Phone: [facility] 09-29-2020 influenza, injectabl e, quadrivalent, preservative free [facility] 09-29-2020 influenza, seasonal, injectable Dr. Zach Perry Work Phone: [facility] 09-29-2020 influenza, seasonal, injectable, preservative free Jeff Perry MD Work Phone: [facility] Work Phone: 10-01-2019 influenza, injectabl e, quadrivalent, preservative free [facility] 10-01-2019 influenza, seasonal, injectable Dr. Zach Perry Work Phone: [facility] 10-01-2019 influenza, seasonal, injectable, preservative free Jeff Perry MD Work Phone: [facility] Work Phone: 08-21-2018 influenza, injectabl e, quadrivalent, preservative free [facility] 08-21-2018 influenza, seasonal, injectable Dr. Zach Perry Work Phone: [facility] 08-21-2018 influenza, seasonal, injectable, preservative free Jeff Perry MD Work Phone: [facility] Work Phone: 10-05-2017 influenza, injectabl e, quadrivalent, preservative free [facility] 10-05-2017 influenza, seasonal, injectable Dr. Zach Perry Work Phone: [facility] 10-05-2017 influenza, seasonal, injectable, preservative free Jeff Perry MD Work Phone: [facility] Work Phone: 08-06-2016 influenza, injectabl e, quadrivalent, preservative free [facility] 08-06-2016 influenza, seasonal, injectable Jeff Perry MD Work Phone: [facility] 08-06-2016 influenza, seasonal, injectable, preservative free Jeff Perry MD Work Phone: [facility] Work Phone: 08-06-2015 influenza, injectabl e, quadrivalent, preservative free [facility] 08-06-2015 influenza, seasonal, injectable Dr. Zach Perry Work Phone: [facility] 08-06-2015 influenza, seasonal, injectable, preservative free Jeff Perry MD Work Phone: [facility] Work Phone: 08-01-2014 influenza, injectabl e, quadrivalent, preservative free [facility] 08-01-2014 influenza, seasonal, injectable Dr. Zach Perry Work Phone: [facility] 08-01-2014 influenza, seasonal, injectable, preservative free Jeff Perry MD Work Phone: [facility] Work Phone: 11-15-[address] Zach Perry Work Phone: [facility] 11-15-2013 influenza, seasonal, injectable Jeff Perry MD Work Phone: [facility] 11-15-2013 influenza, seasonal, injectable, preservative free Jeff Perry MD Work Phone: [facility] Work Phone: 02-13-1985 mumps virus vaccine Artie Perry MD Work Phone: [facility] Work Phone: 02-13-1985 rubella virus vaccine Reji Perry MD Work Phone: [facility] Work Phone: 05-09-1983 diphtheria and tetan us toxoids, adsorbed for pediatric use Jeff Perry MD Work Phone: [facility] Work Phone: 05-09-1983 DTP-Haemophilus influenzae type b conjugate vaccine Jeff Perry MD Work Phone: [facility] Work Phone: 10-23-1980 rubella virus vaccine Reji Perry MD Work Phone: [facility] Work Phone: 1965 DTP-Haemophilus influenzae type b conjugate vaccine Jeff Perry MD Work Phone: [facility] Work Phone: 1965 trivalent poliovirus vaccine, live, oral Jeff Perry MD Work Phone: [facility] Work Phone: 1965 DTP-Haemophilus influenzae type b conjugate vaccine Jeff Peryr MD Work Phone: [facility] Work Phone: 1965 trivalent poliovirus vaccine, live, oral Jeff Perry MD Work Phone: [facility] Work Phone: 1965 DTP-Haemophilus influenzae type b conjugate vaccine Jeff Perry MD Work Phone: [facility] Work Phone: 1965 trivalent poliovirus vaccine, live, oral Jeff Perry MD Work Phone: [facility] Work Phone: Payers Date Payer Category Payer Self-pay [id number] 2022 Private Health Insurance [id number] 2022 Unknown [id number] 2020 Unknown MMO MMO TPA [id number] 2020-Present [address] [place] [address] PPO [id number] 2020 Unknown MMO MMO TPA [id number] 2020-Present [address] [place] [address] PPO [id number] 2015 Unknown [id number] Unknown [id number] 2 Unknown [id number] 2 Unknown [id number] 2 Unknown [id number] [id number] 2 Unknown [id number] [id number] 2 Unknown [id number] [id number] 2 Unknown [id number] [id number] 2 Unknown [id number] [id number] 2 Unknown [id number] [id number] 2 Unknown [id number] [id number] 2 Unknown [id number] [id number] 2 Unknown [id number] [id number] 2 Unknown [id number] [id number] 2 Unknown [id number] [id number] 2 Unknown [id number] [id number] 2 Unknown [id number] [id number] 2 Unknown [id number] [id number] 2 Unknown [id number] [id number] 2 Social History Date Type Detail Facility Start: 07-21-2017 End: 08-11-2022 Tobacco smoking status NHIS Never smoked tobacco [facility] Work Phone: Start: 12-21-2021 End: 11-08-2024 Alcohol intake Current drinker of alcohol (finding) [facility] Start: 12-21-2021 End: 08-15-2023 Alcohol intake [facility] Work Phone: Start: 1965 Sex Assigned At Not on file [facility] Start: 02-17-2022 End: 05-25-2023 Tobacco smoking status NHIS Unknown if ever smoked [facility] Start: 06-03-2020 Non-smoker [facility] Start: 1965 Sex Assigned At Male [facility] Start: 11-21-2021 End: 07-27-2022 Exposure to SARS-CoV-2 (event) Not sure [facility] Start: 07-21-2017 End: 08-11-2022 Tobacco use and exposure Smokeless tobacco non-user [facility] Start: 08-15-2023 End: 07-23-2025 Tobacco use panel [facility] Work Phone: Start: 10-08-2012 Adult Depression Screening Assessment 0 [facility] Work Phone: Medical Equipment Procedure Code Equipment [...] 1 times daily. Dx: 250.00. Insulin: No [id number] Start: 08-05-2015 Comment on above: Test blood [...] Facility 10-24-2022 Functional status Ambulates;Up ad juli [facility] Work Phone: 06-26-2020 Are you deaf, or do you have serious difficulty hearing No 06/26/2020 11:12 AM EDT Neal Brown III, MD No [facility] 06-26-2020 Are you blind, or do you have serious difficulty seeing, even when wearing glasses No 06/26/2020 11:12 AM EDT Neal Brown III, MD No [facility] 06-26-2020 Do you have serious difficulty walking or climbing stairs No 06/26/2020 11:12 AM EDT Neal Brown III, MD No [facility] 06-26-2020 Do you have difficul ty dressing or bathing No 06/26/2020 11:12 AM EDT Neal Brown III, MD No [facility] 06-26-2020 Because of a physica l, mental, or emotional condition, do you have difficulty doing errands alone such as visiting a physician's office or shopping No 06/26/2020 11:12 AM EDT Neal Brown III, MD No [facility] Mental Status Date Assessment Result Facility 10-24-2022 Cognitive function Level Of Cons ciousness Awake;Alert [facility] Work Phone: 10-23-2022 Cognitive function Voice/Name [facility] Work Phone: 10-22-2022 Cognitive function Level Of Cons ciousness Awake;Alert;Appropriate;Fol lows Commands [facility] Work Phone: 06-26-2020 Because of a physica l, mental, or emotional condition, do you have serious difficulty concentrating, remembering, or making decisions No 06/26/2020 11:12 AM EDT Neal Brown III, MD No [facility] Clinical Notes 05-04-2017 to 07-23-2025 Jabier Giron APRN.VETERINARY MEAT INSPECTOR - 07/23/2025 12:39 PM EDT Note Date & Type Note Facility 07-23-2025 Note HNO ID: [id number] Author: JABIER GIRON APRN.VETERINARY MEAT INSPECTOR Service: ? Author Type: Nurse Practitioner Type: Progress Notes Filed: 07/23/2025 13:03 Note Text: Chief Complaint Patient presents with: Physical HPI Al Gonzalez is a 60 year old male who presents here today for Above Complaints. Patient presents for annual employment physical. Labs completed 07/19 at [facility] reviewed. Past medical history, appointments, medications, allergies reviewed. Previous Medical History PAST MEDICAL HISTORY Diagnosis Date Biceps tendon rupture bilateral s/p repair Class 1 obesity due to excess calories with serious comorbidity and body mass index (BMI) of 34.0 to 34.9 in adult DM II (diabetes mellitus, type II) ([facility]) Dr. Kike Mccoy. History of atrial fibrillation [address] Vale managing Hyperlipidemia LDL goal <100 09/04/2015 Hypertension, essential 07/11/2018 Injury of meniscus of left knee Microscopic hematuria PEÑA (nonalcoholic steatohepatitis) Proteinuria Rotator cuff tear arthropathy of both shoulders [...] on file prior to visit. Social History SOCIAL HISTORY[1] Review of Symptoms REVIEW OF SYSTEMS SEE HPI EXAM: BP 120/77 Pulse 66 Wt 106 kg (233 lb 11 oz) BMI 34.22 kg/m? General Appearance: Well appearing, alert, in no acute distress, well-hydrated, well nourished. Skin: Skin color, texture, turgor normal, no suspicious rashes or lesions. Lungs: Lungs clear to auscultation. No wheezing, rhonchi, rales.. Heart: RRR without murmur, gallop, or rubs. No ectopy. Abdomen: Normal abdominal exam, Abdomen soft, non-tender. Bowel sounds normal. No masses, organomegaly. Musculoskeletal: No joint swelling, deformity, or tenderness. Peripheral Pulses: Normal. Neurologic: Gait normal. Reflexes normal and symmetric. Sensation grossly intact.. Health Maintenance List Depression Screening Never done Anxiety Screening Never done Hepatitis B Vaccine(1 of 3 - 19+ 3-dose series) Never done Pneumococcal Vaccine: 50+(1 of 2 - PCV) Never done Urine Albumin:Creatinine Ratio due on 02/13/2019 HbA1C due on 10/13/2023 Dilated Retinal Exam due on 02/11/2024 LDL Cholesterol due on 08/09/2024 Influenza Vaccine(1) due on 07/08/2025 Diabetic Foot Exam due on 08/15/2025 Annual PCP Team Chronic Disease Visit due on 08/15/2025 Prostate Cancer Screening Discussion due on 12/24/2025 Colorectal Cancer Screening due on 08/26/2026 DTaP,Tdap,Td Vaccine(7 - Td or Tdap) due on 07/22/2031 Shingrix Vaccine Completed Hepatitis C Screening Discontinued HIV Screening Discontinued Data reviewed [facility] Labs Reviewed, WNL ASSESSMENT/PLAN: 1. Annual physical exam - ICD9: V70.0, ICD10: Z00.00 (primary diagnosis) - Counseled on healthy diet and regular exercise - Discussed need for and benefit of weight loss. BMI 34.22 kg/(m2) - Follow up for annual exam in one year 2. Type 2 diabetes mellitus without complication, without long-term current use of insulin (HCC) - ICD9: 250.00, ICD10: E11.9 - Controlled - Continue current medications - Counseled on healthy diet and regular exercise - Discussed need for and benefit of weight loss. BMI 34.22 kg/(m2) 3. Hyperlipidemia LDL goal <100 - ICD9: 272.4, ICD10: E78.5 - Controlled - Continue current medications - Counseled on healthy diet and regular exercise 4. Hypertension, essential - ICD9: 401.9, ICD10: I10 - Controlled - Continue current medications - Víctor (more content not included)... [facility] 07-23-2025 History of Present illness Narrative Chief Complaint Patient presents with: Physical HPI Al Gonzalez is a 60 year old male who presents here today for Above Complaints. Patient presents for annual employment physical. Labs completed 07/19 at [facility] reviewed. Past medical history, appointments, medications, allergies reviewed. Previous Medical History PAST MEDICAL HISTORY Diagnosis Date Biceps tendon rupture bilateral s/p repair Class 1 obesity due to excess calories with serious comorbidity and body mass index (BMI) of 34.0 to 34.9 in adult DM II (diabetes mellitus, type II) ([facility]) Dr. Kike Mccoy. History of atrial fibrillation [address] Vale managing Hyperlipidemia LDL goal <100 09/04/2015 Hypertension, essential 07/11/2018 Injury of meniscus of left knee Microscopic hematuria PEÑA (nonalcoholic steatohepatitis) Proteinuria Rotator cuff tear arthropathy of both shoulders [...] on file prior to visit. Social History SOCIAL HISTORY[1] Review of Symptoms REVIEW OF SYSTEMS SEE HPI EXAM: BP 120/77 Pulse 66 Wt 106 kg (233 lb 11 oz) BMI 34.22 kg/m General Appearance: Well appearing, alert, in no acute distress, well-hydrated, well nourished. Skin: Skin color, texture, turgor normal, no suspicious rashes or lesions. Lungs: Lungs clear to auscultation. No wheezing, rhonchi, rales.. Heart: RRR without murmur, gallop, or rubs. No ectopy. Abdomen: Normal abdominal exam, Abdomen soft, non-tender. Bowel sounds normal. No masses, organomegaly. Musculoskeletal: No joint swelling, deformity, or tenderness. Peripheral Pulses: Normal. Neurologic: Gait normal. Reflexes normal and symmetric. Sensation grossly intact.. Health Maintenance List Depression Screening Never done Anxiety Screening Never done Hepatitis B Vaccine(1 of 3 - 19+ 3-dose series) Never done Pneumococcal Vaccine: 50+(1 of 2 - PCV) Never done Urine Albumin:Creatinine Ratio due on 02/13/2019 HbA1C due on 10/13/2023 Dilated Retinal Exam due on 02/11/2024 LDL Cholesterol due on 08/09/2024 Influenza Vaccine(1) due on 07/08/2025 Diabetic Foot Exam due on 08/15/2025 Annual PCP Team Chronic Disease Visit due on 08/15/2025 Prostate Cancer Screening Discussion due on 12/24/2025 Colorectal Cancer Screening due on 08/26/2026 DTaP,Tdap,Td Vaccine(7 - Td or Tdap) due on 07/22/2031 Shingrix Vaccine Completed Hepatitis C Screening Discontinued HIV Screening Discontinued Data reviewed [facility] Labs Reviewed, WNL ASSESSMENT/PLAN: 1. Annual physical exam - ICD9: V70.0, ICD10: Z00.00 (primary diagnosis) - Counseled on healthy diet and regular exercise - Discussed need for and benefit of weight loss. BMI 34.22 kg/(m^2) - Follow up for annual exam in one year 2. Type 2 diabetes mellitus without complication, without long-term current use of insulin (HCC) - ICD9: 250.00, ICD10: E11.9 - Controlled - Continue current medications - Counseled on healthy diet and regular exercise - Discussed need for and benefit of weight loss. BMI 34.22 kg/(m^2) 3. Hyperlipidemia LDL goal <100 - ICD9: 272.4, ICD10: E78.5 - Controlled - Continue current medications - Counseled on healthy diet and regular exercise 4. Hypertension, essential - ICD9: 401.9, ICD10: I10 - Controlled - Continue current medications - Recommend home blood pressure monitoring, to bring results to next visit - Encouraged sodium restriction, DASH or Mediterranean diet - Recommend regular aerobic exercise - Discussed need for and benefit of weight loss. BMI 34.22 kg/(m^2) 5. Screening for depression - ICD9: V79.0, ICD10: Z13.31 - DEPRESSION SCREENING 6. Encounter for screening examination for other mental health and behavioral disorders - ICD9: V79.8, ICD10: Z13.39 - ANXIETY SCREENING Jabier Giron APRN.SYLVIE [1] Social History Tobacco Use Smoking status: Never Smokeless tobacco: Never Substance Use Topics Alcohol use: Yes Alcohol/week: 2.0 standard drinks of alcohol Types: 2 Cans of Beer (12oz) per week Drug use: No documented in this encounter [facility] 06-13-2025 Radiology Diagnostic study note [facility] Imaging Services [address] [place] [address] Knee 4 or More Views MR#: [id number] Acct: [id number] Name: AL GONZALEZ Rep #: [id number] : [id number] M [id number] From: Ulysses Sanchez MD PCP: Dr. Zach Perry MD Status: REG CLI Study:Knee 4 or More Views Date of Exam: 06/12/25 Exam# [id number] Ordering Dr: Jose Martini DO PROCEDURE: KNEE 4 OR MORE VIEWS 06/12/2025 REASON FOR EXAM: KNEE PAIN TECHNIQUE: KNEE 4 OR MORE VIEWS COMPARISON: Radiographs on 04/04/2024. FINDINGS: Moderate tricompartmental changes of degenerative joint disease, more prominent in the medial tibiofemoral compartment, progressed. Chondrocalcinosis is unchanged. Chronic fragmentation of the tibial tuberosity, unchanged. Mild osteopenia of the visualized bones. Degenerative joint disease. No fracture or dislocation is seen. No lytic or blastic bone lesion is noted. RAD/Knee 4 or More Views IMPRESSION: Degenerative joint disease. Reading Location: [place] [address] CC: Dr. Zach Perry MD; Dr. Jose Martini DO ~ Pocketed Spring Machine Operator: Signed [facility] 06-13-2025 Radiology Diagnostic study note [facility] Imaging Services [address] [place] [address] Knee 4 or More Views MR#: [id number] Acct: [id number] Name: AL GONZALEZ Rep #: [id number] : [id number] M [id number] From: Aimee Bernal MD PCP: Dr. Zach Perry MD Status: REG CLI Study:Knee 4 or More Views Date of Exam: 06/12/25 Exam# [id number] Ordering Dr: Jose Martini DO PROCEDURE: KNEE 4 OR MORE VIEWS 06/12/2025 REASON FOR EXAM: KNEE PAIN TECHNIQUE: KNEE 4 OR MORE VIEWS COMPARISON: 04/04/2024 FINDINGS: Mild medial femorotibial joint space narrowing. Fragmented tibial tuberosity. Small osteophytes. No acute bone or soft tissue pathology. RAD/Knee 4 or More Views IMPRESSION: Mild right knee osteoarthritis. Possible history of Maurisio-Schlatter disease. Reading Location: [place] [address] CC: Dr. Zach Perry MD; Dr. Jose Martini DO ~ Pocketed Spring Machine Operator: Signed [facility] 04-16-2025 Evaluation note Diagnosis Onset Date Resolution Diabetes chronic April 16 3:21pm Essential hypertension chronic Ju 2024 3:21pm Hyperlipidemia chronic April 16, 2025 3:21pm PEÑA (nonalcoholic steatohepatitis) chronic April 16, 2025 3:21pm Obesity chronic April 16 3:21pm Osteoarthritis of knees, bilateral acute June 12, 2025 3:11pm [facility] Work Phone: 1(781) 952-893402-12-2025 Evaluation note* Diagnosis Onset Date Resolution Status Admit Date Osteoarthritis of knees, bilateral acute December 19, 2 025 3:39pm [facility] Work Phone: 1(562) 805-387301-02-2025 Telephone encounter Note* Telephone Encounter - Ivory Taveras RN - 11/08/2024 2:55 PM EST Patient calls and notified of results and providers instructions. Patient verbalizes understanding. Patient reports he will have lab completed at [facility] and call backend java developer to February follow up to request order and have it faxed to [facility]. Ivory Taveras RN [facility]01-02-2025 Miscellaneous Notes* Telephone Encounter - Ivory Taveras RN - 11/08/2024 2:55 PM EST Patient calls and notified of results and providers instructions. Patient verbalizes understanding. Patient reports he will have lab completed at [facility] and call backend java developer to February follow up to request order and have it faxed to [facility]. Ivory Taveras RN * Telephone Encounter - Belle Abdi LPN [...] he had his US on 11/03 at [facility]. Asking if PCP has received the results. Please advise. [facility] Telephone encounter Note * Telephone Encounter - Belle Abdi LPN - 11/08/2024 2:45 PM EST Message left for patient to return call and request to speak with a nurse to review provider's message. Belle Abdi LPN [facility]01-02-2025 Telephone encounter Note* Telephone Encounter - Jeff Perry MD - 11/08/2024 2:27 PM EST His ultrasound of the kidneys and bladder was normal. Nothing to explain small amount of protein and blood. With recent labs showing normal kidney function, would recommend rechecking UA at future OV. Recommend 6 month f/u in February. [facility]01-02-2025 Telephone encounter Note* Telephone Encounter - Ju Iverson LPN - 11/08/2024 11:18 AM EST Patient calling, states he had his US on 11/03 at [facility]. Asking if PCP has received the results. Please advise. [facility]12-24-2024 Telephone encounter Note* Telephone Encounter - Belle Abdi LPN - 10/30/2024 12:01 PM EST Phoned patient and reviewed results with him. Patient voiced understanding and he requested order be sent to [facility]. He will contact them for scheduling after [place]. Belle Abdi LPN [facility]12-24-2024 Miscellaneous Notes* Telephone Encounter - Belle Abdi LPN - 10/30/2024 12:01 PM EST Phoned patient and reviewed results with him. Patient voiced understanding and he requested order be sent to [facility]. He will contact them for scheduling after [place]. Belle Abdi LPN * Telephone Encounter - Jeff Perry MD - 10/30/2024 11:41 AM EST Received patient's repeat UA from [facility] which shows continued small amount of protein and small amount of blood. Protein is likely 2/2 diabetes. Will check US of kidneys for further workup. documented in this encounterBlanchard Valley [facility] System12-24-2024 Telephone encounter Note * Telephone Encounter - Jeff Perry MD - 10/30/2024 11:41 AM EST Received patient's repeat UA from [facility] which shows continued small amount of protein and small amount of blood. Protein is likely 2/2 diabetes. Will check US of kidneys for further workup. [facility]10-18-[facility] Telephone encounter Note* Telephone Encounter - Pooja Cutler LPN - 08/24/2024 11:02 AM EDT Spoke with pt gave information provided. Pt voices understanding. Lab for future ua was faxed to [facility]. [facility]10-18-2024 Miscellaneous Notes* Telephone Encounter - Pooja Cutler LPN - 08/24/2024 11:02 AM EDT Spoke with pt gave information provided. Pt voices understanding. Lab for future ua was faxed to [facility]. * Telephone Encounter - Belle Abdi LPN - 08/22/2024 1:23 PM EDT Message left for patient to return call and speak with a nurse to review provider's message. Belle Abdi LPN * Telephone Encounter - Jeff Perry MD - 08/22/2024 12:07 PM EDT Labs completed at [facility] on 08/13 shows controlled DM with A1c of 6.6 and UA is negative for infection.Noted some protein in urine. Recheck UA in 1 month. No change in regimen. documented in this encounterBlanchard Valley Health System10-16-2024 Telephone encounter Note * Telephone Encounter - Belle Abdi LPN - 08/22/2024 1:23 PM EDT Message left for patient to return call and speak with a nurse to review provider's message. Belle Abdi LPN [facility]10-16-[facility] Telephone encounter Note* Telephone Encounter - Jeff Perry MD - 08/22/2024 12:07 PM EDT Labs completed at [facility] on 08/13 shows controlled DM with A1c of 6.6 and UA is negative for infection.Noted some protein in urine. Recheck UA in 1 month. No change in regimen. [facility]10-09-[facility] History of Present illness Narrative* Charu Pérez APRN.VETERINARY MEAT INSPECTOR - 08/15/2024 5:00 PM EDT 08/15/2024 Patient presents with: Results: Needs form for work completed SUBJECTIVE: This is a 59 year old that is here today for Above Complaints. DIABETES MELLITUS: Follows with [facility] endocrinology with last appointment last [...] month per patient Atrial fib: follows with [facility] cardiology office visit on 02/21/2024. [...] II (diabetes mellitus, type II) ([facility]) Dr. Kike Mccoy. History of atrial [...] 08/15/2024 Influenza Vaccine(1) due on 05/06/2025 Covid-19 Vaccine(2023- season) due on 08/15/2025 Diabetic Foot Exam [...] follow-up with cardiology as recommended Charu Pérez APRN.VETERINARY MEAT INSPECTOR Prescription instructions reviewed with patient as applicable. [...] Level: 4 - Moderate documented in this encounterBlanchard Valley Health System10-09-2024 NoteHNO ID: [id number] Author: CHARU PÉREZ APRN.CNP Service: ? Author Type: Nurse Practitioner Type: Progress Notes Filed: 08/15/2024 16:56 Note Text: 08/15/2024 Patient presents with: Results: Needs form for work completed SUBJECTIVE: This is a 59 year old that is here today for Above Complaints. DIABETES MELLITUS: Follows with [facility] endocrinology with last appointment last [...] month per patient Atrial fib: follows with [facility] cardiology office visit on 02/21/2024. [...] II (diabetes mellitus, type II) ([facility]) Dr. Kike Mccoy. History of atrial [...] 08/15/2024 Influenza Vaccine(1) due on 05/06/2025 Covid-19 Vaccine(2023- season) due on 08/15/2025 Diabetic Foot Exam due on 08/15/2025 Annual PCP Team Chronic Disease Visit due on 08/15/2025 Prostate Cancer Screening Discussion due on 12/24/2025 Colorectal Cancer Screening due on 08/26/2026 DTaP,Tdap,Td Vaccine(7 - (more content not included)...[facility]09-25-2024 Telephone encounter Note* Telephone Encounter - Stephanie [...] Lui RN August 01, 2024 11:45 AM [facility]09-25-2024 Miscellaneous Notes* Telephone Encounter - Stephanie Lui [...] 01, 2024 11:45 AM documented in this encounterBlanchard Valley Health System09-24-2024 Telephone encounter Note * Telephone Encounter - Shannon Ramirez MA - 07/31/2024 9:28 AM EDT Pt notified. Orders faxed to [facility]. Shannon Ramirez MA [facility]09-24-2024 Miscellaneous Notes* Telephone Encounter - Shannon Ramirez MA - 07/31/2024 9:28 AM EDT Pt notified. Orders faxed to [facility]. Shannon Ramirez MA * Telephone Encounter - Jeff Perry MD - 07/31/2024 9:06 AM EDT Orders approved. * Telephone Encounter - Belle Barber - 07/30/2024 10:15 AM EDT Patient has apt 08/15 and requesting a PSA order to be sent to [facility] (because he works there) Please advise documented in this encounterBlanchard Valley Health System09-24-2024 Telephone encounter Note * Telephone Encounter - Jeff Perry MD - 07/31/2024 9:06 AM EDT Orders approved. [facility]09-23-[facility] Telephone encounter Note* Telephone Encounter - Belle Barber - 07/30/2024 10:15 AM EDT Patient has apt 10/9 and requesting a PSA order to be sent to [facility] (because he works there) Please advise [facility] Work Phone: [phone]) 922-796210-09-2023 History of Present illness Narrative* Jeff Perry [...] pleasure in doing things. Reviewed labs through [facility]. Past medical history, appointments, medications, allergies reviewed. Previous Medical History PAST MEDICAL HISTORY Diagnosis Date Biceps tendon rupture bilateral s/p repair Class 1 obesity due to excess calories with serious comorbidity and body mass index (BMI) of 34.0 to 34.9 in adult DM II (diabetes mellitus, type II) ([facility]) Dr. Kike Mccoy. History of atrial [...] scheduled. Jeff Perry MD documented in this encounterBlanchard Valley Health System04-10-2023 Miscellaneous Notes* Telephone Encounter - Prisca Parada [...] you. Janett Rich LPN documented in this encounterBlanchard Valley Health System03-20-2023 Miscellaneous Notes* Telephone Encounter - Caitie Martinez [facility] - 01/24/2023 10:58 AM EDT Patient has [...] patient. Caitie Martinez [employer] documented in this encounterBlanchard Valley Health System01-04-2023 Miscellaneous Notes* Telephone Encounter - Marcela Lemos Ma - 11/10/2022 9:29 AM EST LIS 08/11/22 NOV none * Telephone Encounter - Flores Peña Pss - 11/09/2022 4:38 PM EST Pharmacy verified in Epic Patient has been [...] advise. Flores Peña Pss documented in this encounterBlanchard Valley Health System10-05-2022 History of Present illness Narrative* Tish Sharma LPN - 08/11/2022 4:17 PM EDT As requested; Lab ordered today faxed to [facility] lab & referral for dermatology faxed to [facility] [place] office. Tish Sharma LPN * Charu Pérez, DELIA.VETERINARY MEAT INSPECTOR - 08/11/2022 3:43 PM EDT 08/11/2022 Patient presents with: Yearly Exam: Go over labs Pain: Right knee x3-4 months SUBJECTIVE: This is a 57 year old that is here today for Above Complaints. DM: sees endocrinology over at [facility]. Taking medications as prescribed. Checks blood [...] lipids, and vitamin D level completed through [facility]. Was told vitamin D a littlelow and to take 1000 units of vitamin D daily Recent blood work reviewed with patient PAST MEDICAL HISTORY Diagnosis Date Biceps tendon rupture bilateral s/p repair Class 1 obesity due to excess calories with serious comorbidity and body mass index (BMI) of 34.0 to 34.9 in adult DM II (diabetes mellitus, type II) ([facility]) Hyperlipidemia LDL goal <100 09/04/2015 Hypertension, [...] not will fax xray order over to [facility] - continue current OTC treatments [...] which included preparing to see the patient, [id number] patient care, completing clinical documentation, obtaining and/or reviewing separately obtained history, performing a medically appropriate examination, counseling and educating the pat ient/family/caregiver, and ordering medications, tests, or procedures. documented in this encounterBlanchard Valley Health System09-23-2022 Miscellaneous Notes* Telephone Encounter - Shannon Ramirez Ma - 07/30/2022 9:47 AM EDT Order faxed to [facility]. Shannon Ramirez Ma * Telephone Encounter - Charu Pérez APRN.CNP - 07/30/2022 7:45 AM EDT Please fax order for PSA blood work to [facility]. Charu Pérez APRN.CNP * Telephone Encounter - Shraddha Nolan LPN - 07/27/2022 2:27 PM EDT Pt called and states he has lab orders at the hospital to have lab work done. He is requesting a PSA test be done. Please fax order to [facility] lab. Shraddha Nolan LPN documented in this encounterBlanchard Valley Health System08-12-2022 Miscellaneous Notes* Telephone Encounter - Aruna Nolan Pss - 06/18/2022 9:30 AM EDT Patient has been identified by name and date of : Yes Requested Prescriptions Pending Prescriptions Disp Refills metFORMIN (GLUCOPHAGE) 1,000 mg tablet 180 tablet 2 Sig: Take 1 tablet by mouth twice daily with meals. LIS-12/02/21 Labs-12/02/21 NOV-none med filled 01/27/22 RX INSTRUCTIONS: Pharmacy initiated this request. No need to notify patient. Aruna Nolan Pss documented in this encounterBlanchard Valley Health System06-06-2022 Miscellaneous Notes* Telephone Encounter - Trinity Burns [...] you. Trinity Burns RN documented in this encounterBlanchard Valley Health System05-02-2022 Miscellaneous Notes* Telephone Encounter - Tish Sharma LPN - 03/08/2022 3:45 PM EDT Patient notified. Tish Sharma LPN * Telephone Encounter - Charu Pérez APRN.CNP - 03/08/2022 2:58 PM EDT Please call patient and let him know his blood work looks good. Continue current medications. Charu Pérez APRN.SYLVIE documented in this encounterBlanchard Valley Health System04-13-2022 Miscellaneous Notes* Telephone Encounter - Ivory Taveras RN - 02/17/2022 3:19 PM EDT Patient calls to report that Dr. Kike Mccoy didn't receive referral packet previously sent. Re-faxedreferral, demographics, labs, medications, and last visit note per request to [phone]. Ivory Taveras RN documented in this encounterBlanchard Valley Health System03-23-2022 Miscellaneous Notes* Telephone Encounter - Trinity Burns RN - 01/27/2022 10:55 AM EDT Patient requesting lab orders be faxed to [facility]. Faxed as requested to [phone]. Trinity Burns RN documented in this encounterBlanchard Valley Health System03-23-2022 Miscellaneous Notes* Telephone Encounter - Trinity Burns RN - 01/27/2022 10:54 AM EDT Patient returned call and given provider's message below and patient verbalized understanding. Patient states he will call back to make appt. Tom Burns RN * Telephone Encounter - Shraddha [...] schedule OV. * Telephone Encounter - Aarti Moreau - 01/27/2022 8:17 AM EDT Patient has been identified by name and date of : Yes Pending Prescriptions Disp Refills METFORMIN 1,000 MG TABLET 180 tablet 0 Sig: Take 1 tablet by mouth twice daily with meals. JAMMIE: No LIS-07/22/21 Labs-12/14/21 NOV-none med filled 07/22/21 RX INSTRUCTIONS: Pharmacy initiated this request. No need to notify patient. Aarti Moreau documented in this encounterBlanchard Valley Health System01-26-2022 Miscellaneous Notes* Telephone Encounter - Tish Sharma LPN - 12/02/2021 12:27 PM EST Pt made aware and verbalized understanding. Tish Sharma LPN * Telephone Encounter - Charu Pérez APRN.CNP - 12/02/2021 11:51 AM EST I think I forgot to tell patient to start ASA 81 mg daily. Please call and let him know. Charu Pérez APRN.CNP documented in this encounterBlanchard Valley Health System06-28-2017 History of Past illness Narrative* Problem Noted Date Resolved Date Benign hypertension 05/04/2017 05/04/2017 Impaired fasting glucose 07/04/2014 015 Shoulder separation 05/20/2010 09/04/2015 Sterilization 07/08/2009 09/04/2015 Dysmetabolic syndrome X 02/06/2008 08/04/20 15 documented as of this encounter (statuses as of 01/27/2022) [facility] of Past illness Narrative* Problem Noted Date Resolved Date Benign hypertension 05/04/2017 05/04/2017 Impaired fasting glucose 07/04/2014 015 Shoulder separation 05/20/2010 09/04/2015 Sterilization 07/08/2009 09/04/2015 Dysmetabolic syndrome X 02/06/2008 08/04/20 15 documented as of this encounter (statuses as of 01/27/2022) [facility] of [facility] illness Narrative* Problem Noted Date Resolved Date Benign hypertension 05/04/2017 05/04/2017 Impaired fasting glucose 07/04/2014 015 Shoulder separation 05/20/2010 09/04/2015 Sterilization 07/08/2009 09/04/2015 Dysmetabolic syndrome X 02/06/2008 08/04/20 15 documented as of this encounter (statuses as of 02/17/2022) [facility] of Past illness Narrative* Problem Noted Date Resolved Date Benign hypertension 05/04/2017 05/04/2017 Impaired fasting glucose 07/04/2014 015 Shoulder separation 05/20/2010 09/04/2015 Sterilization 07/08/2009 09/04/2015 Dysmetabolic syndrome X 02/06/2008 08/04/20 15 documented as of this encounter (statuses as of 04/12/2022) [facility] of [facility] illness Narrative* Problem Noted Date Resolved Date Benign hypertension 05/04/2017 05/04/2017 Impaired fasting glucose 07/04/2014 015 Shoulder separation 05/20/2010 09/04/2015 Sterilization 07/08/2009 09/04/2015 Dysmetabolic syndrome X 02/06/2008 08/04/20 15 documented as of this encounter (statuses as of 05/26/2022) [facility] of [facility] illness Narrative* Problem Noted Date Resolved Date Benign hypertension 05/04/2017 05/04/2017 Impaired fasting glucose 07/04/2014 015 Shoulder separation 05/20/2010 09/04/2015 Sterilization 07/08/2009 09/04/2015 Dysmetabolic syndrome X 02/06/2008 08/04/20 15 documented as of this encounter (statuses as of 05/28/2022) [facility] Narrative* Problem Noted Date Resolved Date Benign hypertension 05/04/2017 05/04/2017 Impaired fasting glucose 07/04/2014 015 Shoulder separation 05/20/2010 09/04/2015 Sterilization 07/08/2009 09/04/2015 Dysmetabolic syndrome X 02/06/2008 08/04/20 15 documented as of this encounter (statuses as of 06/21/2022) [facility] Narrative* Problem Noted Date Resolved Date Benign hypertension 05/04/2017 05/04/2017 Impaired fasting glucose 07/04/2014 015 Shoulder separation 05/20/2010 09/04/2015 Sterilization 07/08/2009 09/04/2015 Dysmetabolic syndrome X 02/06/2008 08/04/20 15 documented as of this encounter (statuses as of 07/30/2022) [facility] Narrative* Problem Noted Date Resolved Date Benign hypertension 05/04/2017 05/04/2017 Impaired fasting glucose 07/04/2014 015 Shoulder separation 05/20/2010 09/04/2015 Sterilization 07/08/2009 09/04/2015 Dysmetabolic syndrome X 02/06/2008 08/04/20 15 documented as of this encounter (statuses as of 08/11/2022) [facility] Narrative* Problem Noted Date Resolved Date Benign hypertension 05/04/2017 05/04/2017 Impaired fasting glucose 07/04/2014 015 Shoulder separation 05/20/2010 09/04/2015 Sterilization 07/08/2009 09/04/2015 Dysmetabolic syndrome X 02/06/2008 08/04/20 15 documented as of this encounter (statuses as of 11/11/2022) [facility] Narrative* Problem Noted Date Resolved Date Benign hypertension 05/04/2017 05/04/2017 Impaired fasting glucose 07/04/2014 015 Shoulder separation 05/20/2010 09/04/2015 Sterilization 07/08/2009 09/04/2015 Dysmetabolic syndrome X 02/06/2008 08/04/20 15 documented as of this encounter (statuses as of 01/25/2023) [facility] Narrative* Problem Noted Date Resolved Date Benign hypertension 05/04/2017 05/04/2017 Impaired fasting glucose 07/04/2014 015 Shoulder separation 05/20/2010 09/04/2015 Sterilization 07/08/2009 09/04/2015 Dysmetabolic syndrome X 02/06/2008 08/04/20 15 documented as of this encounter (statuses as of 03/15/2023) [facility] Narrative* Problem Noted Date Diagnosed Date Resolved Date Benign hypertension 05/04/2017 05/04/20 17 Impaired fasting glucose 07/04/2014 Shoulder separation 05/20/2010 09/04/20 15 Sterilization 07/08/2009 09/04/2015 Dysmetabolic syndrome X 02/06/200807/09 documented as of this encounter (statuses as of 08/16/2023) [facility] complaint+Reason for visit Narrative* Chief Complaint COVID-19 CHEST PAIN CHEST PAIN CHEST PAIN Amb Documentation BP ISSUES 6 PAGES OF ORDERS Reason for Visit Essential hypertensi on Hyperlipidemia Shortness of breath [facility] Work Phone: Evaluation note* Diagnosis Type 2 diabetes mellitus without complication, without long-term current use of insulin (HCC) documented in this encounter [facility]* Diagnosis Onset Date Resolution Status Essential hypertension acute Hyperlipidemia acute Shortness of breath acute [facility] Work Phone: Evaluation note* Diagnosis Hypertension, essential Unspecified essential hypertension documented in this encounter [facility] note* Diagnosis Type 2 diabetes mellitus without complication, without long-term current use of insulin (HCC) documented in this encounter [facility] note* Diagnosis Screening for prostate cancer- Primary Special screening for malignant neoplasm of prostate documented in this encounter [facility]* Diagnosis Onset Date Resolution Status Diabetes mellitus type II, controlled chronic Essential hypertension chron ic Hyperlipidemia [facility] Work Phone: Evaluation note* Diagnosis Hypertension, essential- Primary Unspecified essential hypertension Family history of skin cancer Family history of other specified malignant neoplasm Acute pain of right knee Type 2 diabetes mellitus without complication, without long-term current use of insulin (HCC) Hyperlipidemia LDL goal <100 Other and unspecified hyperlipidemia [facility]* Diagnosis Onset Date Resolution Status Essential hypertension chron ic Hyperlipidemia chronic Acute hyperglycemia acute Atrial fibrillation with rapid ventricular response acute Dehydration, mild acute [facility] Work Phone: Evaluation note* Diagnosis Onset Date Resolution Status Essential hypertension chron ic Hyperlipidemia chronic Acute hyperglycemia acute Atrial fibrillation with rapid ventricular response acute COVID acute Dehydration, mild acute [facility] Work Phone: Evaluation note* Diagnosis Hypertension, essential Unspecified essential hypertension documented in this encounter [facility]* Diagnosis Hypertension, essential Unspecified essential hypertension documented in this encounter [facility] note* Diagnosis Type 2 diabetes mellitus without complication, without long-term current use of insulin (HCC) [facility]* Diagnosis Onset Date Resolution Status Diabetes mellitus type II, controlled chronic Essential hypertension chron ic Hyperlipidemia chronic Obesity chronic PAF (paroxysmal atrial fibrillation) acute Essential hypertension chron ic Hyperlipidemia [facility] Work Phone: Evaluation note* Diagnosis Annual physical exam- Primary Routine [...] unspecified type (HCC) documented in this encounter [facility] noteNo assessment information availableWMet[facility] Work Phone: Evaluation note* Diagnosis Type 2 diabetes mellitus without complication, without long-term current use of insulin (HCC)- Primary Screening for prostate cancer Special screening for malignant neoplasm of prostate documented in this encounter [facility] note* Diagnosis Hypertension, essential Unspecified essential hypertension documented in this encounter [facility] note* Diagnosis Hypertension, essential- Primary Unspecified essential hypertension Type 2 diabetes mellitus without complication, without long-term current use of insulin (HCC) Hyperlipidemia LDL goal <100 Other and unspecified hyperlipidemia Atrial fibrillation, unspecified type (HCC) documented in this encounter [facility] note* Diagnosis Proteinuria, unspecified type- Primary documented in this encounter [facility] note* Diagnosis Proteinuria, unspecified type- Primary documented in this encounter [facility] note* Diagnosis Microscopic hematuria- Primary documented in this encounter [facility] note* Diagnosis Annual physical exam- Primary Routine general medical examination at a [facility] care facility Type 2 diabetes mellitus without complication, without long-term current use of insulin (HCC) Atrial fibrillation, unspecified type (HCC) Hyperlipidemia LDL goal <100 Other and unspecified hyperlipidemia Hypertension, essential Unspecified essential hypertension Screening for depression Encounter for screening examination for other mental health and behavioral disorders documented in this encounter [facility] for referral (narrative)* Diagnostic Procedure Only (Routine) - Pending Review Specialty Diagnoses / Procedures Referred By Sarah epstein Referred To Contact XR IMAGING Diagnoses Acute pain of right knee Procedures XR KNEE GENERAL 4V AP BOTH/PA BOTH/LAT/MERC RIGHT RADIOLOGIC EXAM KNEE COMPLETE 4/MORE VIEWS Charu Pérez APRN.VETERINARY MEAT INSPECTOR [address] [place] [address] Xr Imaging Referral ID Status Reason Start Date Expiration Date Visits Requested Visits Authorized [id number] Pending Review Auto-Generat ed Referral 08/11/2022 09/10/2023 1 1 * Transition of Care (Routine) - Ref Not Required Specialty Diagnoses / Procedures Referred By Sarah epstein Referred To Contact Dermatology Diagnoses Family history of skin cancer Procedures CONSULT TO DERMATOLOGY NataliyalogCharu diaz APRN.CNP [address] [place] [address] Referral ID Status Reason Start Date Expiration Date Visits Requested Visits Authorized [id number] Ref Not Required PCP Requested Referral 08/11/2022 08/11/2023 1 1 [facility] for referral (narrative)* Diagnostic Procedure Only (Routine) - New Request Specialty Diagnoses / Procedures Referred By Contac t Referred To Contact US IMAGING Diagnoses Proteinuria, unspecified type Procedures US KIDNEY/BLADDER US RETROPERITONEAL REAL TIME W/IMAGE COMPLETE Jeff Perry MD [address] [place] [address] [place] [id number] Referral ID Status Reason Start Date Expiration Date Visits Requested Visits Authorized [id number] New Request Auto-Generat ed Referral 4 11/29/2025 1 1 [facility] [facility]ative[facility]No reason for referral information availableRe[facility] Work Phone: Family History No Family History Records Found Relationship Condition Age at Onset Recorded Date/T madalyn mother Chronic obstructive pulmonary disease Unk nown father Malignant neoplasm Unknown Coronary artery disease Unknown brother Diabetes mellitus Unknown Alcohol abuse Unknown Advance Directives No Advanced Directives Records Found Advance Directive Response Recorded Date/ Time Advance Directives No November 22, 2016 3:20pm Living Will No June 03, 2020 10:28am Power of Home Service Technician No June 03 0 10:28am Advance Directive Response Recorded Date/ Time Advance Directives No November 22, 2016 2:20pm Living Will No October 22, 022 10:42pm Power of Home Service Technician No October 22, 2022 10:42pm Advance Directive Response Recorded Date/ Time Advance Directives No November 22, 2016 2:20pm Living Will No October 23, 2 022 2:01am Power of Home Service Technician No October 23, 2022 2:01am Advance Directive Response Recorded Date/ Time Advance Directives No November 22, 2016 3:20pm Living Will No October 23, 2 022 3:01am Power of Home Service Technician No October 23, 2022 3:01am Advance Directive Response Recorded Date/ Time Advance Directives No March 19 4 11:57am Chief Complaint and Reason for Visit Chief Complaint APPLICATION DEVELOPMENT INTERN, DIABETES, 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 Reason [...] of knees, bilateral Augus t 2024 3:11pm Chief Complaint Admit Date 10 M FU, NS 12/21April 16, 2025 3:21 pm BL KNEES June 12, 2025 3:1 1pm 3 M FU July 17, 2025 2:04pm Summary Purpose Additional Source Comments Source Comments (unrecognize d section and content) In the event this informatio n is protected by the Federal Confidentiality of Alcohol and Drug Abuse Patient Records regulations: The Federal rules restrict any use of the information to criminally investigate or prosecute any alcohol or drug abuse patient.[facility] the event this information is protected by the Federal Confidentiality of Alcohol and Drug Abuse Patient Records regulations: The Federal rules restrict any use of the information to criminally investigate or prosecute any alcohol or drug abuse patient.[facility] SystemIn the event this information is protected by the Federal Confidentiality of Alcohol and Drug Abuse Patient Records regulations: The Federal rules restrict any use of the information to criminally investigate or prosecute any alcohol or drug abuse patient.[facility] SystemIn the event this information is protected by the Federal Confidentiality of Alcohol and Drug Abuse Patient Records regulations: The Federal rules restrict any use of the information to criminally investigate or prosecute any alcohol or drug abuse patient.[facility] SystemIn the event this information is protected by the Federal Confidentiality of Alcohol and Drug Abuse Patient Records regulations: The Federal rules restrict any use of the information to criminally investigate or prosecute any alcohol or drug abuse patient.[facility] SystemIn the event this information is protected by the Federal Confidentiality of Alcohol and Drug Abuse Patient Records regulations: The Federal rules restrict any use of the information to criminally investigate or prosecute any alcohol or drug abuse patient.[facility] SystemIn the event this information is protected by the Federal Confidentiality of Alcohol and Drug Abuse Patient Records regulations: The Federal rules restrict any use of the information to criminally investigate or prosecute any alcohol or drug abuse patient.[facility] SystemIn the event this information is protected by the Federal Confidentiality of Alcohol and Drug Abuse Patient Records regulations: The Federal rules restrict any use of the information to criminally investigate or prosecute any alcohol or drug abuse patient.[facility] SystemIn the event this information is protected by the Federal Confidentiality of Alcohol and Drug Abuse Patient Records regulations: The Federal rules restrict any use of the information to criminally investigate or prosecute any alcohol or drug abuse patient.[facility] SystemIn the event this information is protected by the Federal Confidentiality of Alcohol and Drug Abuse Patient Records regulations: The Federal rules restrict any use of the information to criminally investigate or prosecute any alcohol or drug abuse patient.[facility] SystemIn the event this information is protected by the Federal Confidentiality of Alcohol and Drug Abuse Patient Records regulations: The Federal rules restrict any use of the information to criminally investigate or prosecute any alcohol or drug abuse patient.[facility] SystemIn the event this information is protected by the Federal Confidentiality of Alcohol and Drug Abuse Patient Records regulations: The Federal rules restrict any use of the information to criminally investigate or prosecute any alcohol or drug abuse patient.[facility] SystemIn the event this information is protected by the Federal Confidentiality of Alcohol and Drug Abuse Patient Records regulations: The Federal rules restrict any use of the information to criminally investigate or prosecute any alcohol or drug abuse patient.[facility] SystemIn the event this information is protected by the Federal Confidentiality of Alcohol and Drug Abuse Patient Records regulations: The Federal rules restrict any use of the information to criminally investigate or prosecute any alcohol or drug abuse patient.[facility] SystemIn the event this information is protected by the Federal Confidentiality of Alcohol and Drug Abuse Patient Records regulations: The Federal rules restrict any use of the information to criminally investigate or prosecute any alcohol or drug abuse patient.[facility] SystemIn the event this information is protected by the Federal Confidentiality of Alcohol and Drug Abuse Patient Records regulations: The Federal rules restrict any use of the information to criminally investigate or prosecute any alcohol or drug abuse patient.[facility] SystemIn the event this information is protected by the Federal Confidentiality of Alcohol and Drug Abuse Patient Records regulations: The Federal rules restrict any use of the information to criminally investigate or prosecute any alcohol or drug abuse patient.[facility] SystemIn the event this information is protected by the Federal Confidentiality of Alcohol and Drug Abuse Patient Records regulations: The Federal rules restrict any use of the information to criminally investigate or prosecute any alcohol or drug abuse patient.[facility] SystemIn the event this information is protected by the Federal Confidentiality of Alcohol and Drug Abuse Patient Records regulations: The Federal rules restrict any use of the information to criminally investigate or prosecute any alcohol or drug abuse patient.[facility] SystemIn the event this information is protected by the Federal Confidentiality of Alcohol and Drug Abuse Patient Records regulations: The Federal rules restrict any use of the information to criminally investigate or prosecute any alcohol or drug abuse patient.[facility] Reason for Visit (unrecogniz ed section and content) Reason Onset Date Comments Refill Request 01/27/2022 Reason Comments Request to fax lab orders to [facility] Reason Comments Fax requested Reason [...] 40-54 MIN 4C EST Self Podlogar, DELIA Box.VETERINARY MEAT INSPECTOR [address] [place] [address] Referral ID Status Reason Start Date Expiration Date Visits Re quested Visits Authorized [id number] Closed 07/29/2022 11/06/2022 1 1 Reason Onset Date Comments Refill Request 11/09/2022 Reason Onset Date Comments Refill Request 02/11/2023 Refill Request 03/15/2023 Reason Comments Physical Labs completed last week Reason Comments Orders PSA Reason Onset Date Comments Refill Request 08/01/2024 Reason Comments Results Needs form for work completed Reason Comments Results Reason Comments Physical Care Teams (unrecognized sec tion and content) Electrical Tester Relationship Specialty Start Date End Date Jeff Perry MD [address] [place], [place] [id number] PCP - General Family Practice 07/25/21 Electrical Tester Relationship Specialty Start Date End Date Jeff Perry MD [address] [place], [place] [id number] PCP - General Family Practice 07/25/21 Electrical Tester Relationship Specialty Start Date End Date Jeff Perry MD [address] [place], [place] [id number] [phone] PCP - General Family Practice 07/25/21 Electrical Tester Relationship Specialty Start Date End Date Jeff Perry MD [address] [place], [place] [id number] PCP - General Family Practice 07/25/21 Electrical Tester Relationship Specialty Start Date End Date Jeff Perry MD [address] [facility], [place] [id number] PCP - General Family Medicine 07/25/21 Electrical Tester Relationship Specialty Start Date End Date Jeff Perry MD [address] [facility], [place] [id number] PCP - General Family Medicine 07/25/21 Electrical Tester Relationship Specialty Start Date End Date Jeff Perry MD [address] [facility], [place] [address] PCP - General Family Medicine 07/25/21 Electrical Tester Relationship Specialty Start Date End Date Jeff Perry MD [address] [facility], [place] [id number] PCP - General Family Medicine 07/25/21 Team [...] Care Provider, Ref erring Provider Active Tish CASAS PA Attending Provider Active Team Status: Inactive Member Role Status Dates Dr. Zach Perry MD Primary Care Provider Acti ve Dr. Kike Mccoy MD Attending Provider, Referring Provi leonel Active Team Status: Inactive Member Role Status Dates Dr. Zach Perry MD Primary Care Provider Acti ve Tish CASAS, PA Attending Provider, Referr ing Provider Active Electrical Tester Relationship Specialty Start Date End Date Jeff Perry MD [address] [facility], [place] [id number] PCP - General Family Medicine 07/25/21 Electrical Tester Relationship Specialty Start Date End Date Jeff Perry MD [address] [facility], [place] [address] PCP - General Family Medicine 07/25/21 Electrical Tester Relationship Specialty Start Date End Date Jeff Perry MD [address] [facility], [place] [address] PCP - General Family Medicine 07/25/21 Electrical Tester Relationship Specialty Start Date End Date Jeff Perry MD [address] [facility], [place] [address] PCP - General Family Medicine 07/25/21 Podlogar, SAADIA BoxN.VETERINARY MEAT INSPECTOR [address] [place] [address] Services Account Manager [facility] Medicine 10/13/24 Electrical Tester Relationship Specialty Start Date End Date Jeff Perry MD [address] [facility], [place] [id number] PCP - General Family Medicine 07/25/21 Podlogar, Charu, MEDICAL WRITER.VETERINARY MEAT INSPECTOR [address] [place], [place] [address] Services Account Manager Family Medicine 10/13/24 Team Status: Inactive Member [...] June 12, 2025 End: June 12, 2025 Team Status: Inactive Member Role/Relationship Status Dates Dr. Zach Perry MD Primary Care Provider Acti ve Start: June 12, 2025 End: June 12, 2025 Dr. Jose Martini DO Attending Provider Active Start: June 12, 2025 End: June 12, 2025 Dr. Jose Martini DO Referring Provider Active Start: June 12, 2025 End: June 12, 2025 Team Status: Inactive Member Role/Relationship Status Dates Dr. Zach Perry MD Primary Care Provider Acti ve Start: July 17, 2025 End: July 17, 2025 Dr. Zach Perry MD Referring Provider Active Start: July 17, 2025 End: July 17, 2025 FRITZ Khalil Attending Provider Active Start: July 17, 2025 End: July 17, 2025 Electrical Tester Relationship Specialty Start Date End Date Jeff Perry MD [address] [place], [place] [id number] PCP - General Family Medicine 07/25/21 Charu Pérez APRN.VETERINARY MEAT INSPECTOR [address] [place], [place] [id number] Services Account Manager Family [facility] 10/13/24 Jabier Giron APRN.VETERINARY MEAT INSPECTOR [address], [place] [id number] Services [facility] 04/18/25 Goals (unrecognized section and content) Goals may [...] ized section and content) DATE CREATED AUTHOR 07/28/2025 [facility] DATE CREATED AUTHOR AUTHOR'S JENNA KAPLAN 07/31/2025 [facility] FOR RECORDS PERTAINING TO PATIENTS WHO ARE [...] BE BASED ON THE PRIMARY CLINICAL RECORDS. [employer] provides no warranty or guarantee of the accuracy or completeness of information in this document.
--- OUTSIDE RECORDS SUMMARY | 2025-08-01 18:55 | XMS RPT_ITS | CCD ---
Author Organization [facility] Care Team Providers Care Content Producer Name Role Phone Ajay Acevedo Unavailable Joselyn Finnegan LPN Unavailable Unavailab Joselyn Crawford LPN Unavailable Unavailab le Ajay Acevedo Unavailable Jeff Perry MD Primary Care Provider Dr. Zach Perry Primary Care Provider Dr. Zach Perry Referring Provider Dr. John Lemus Attending Provider Dr. John Brown Attending Provider [phone] [employer] 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, 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-C Charu Referring Provider Dr. Jonathan Vale Attending Provider [employer] 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, GENIA-C Charu Other Provider Belle Botello Attending Provider Unavailable Jeff Perry MD Primary Care Provider Jeff Perry MD Primary Care Provider Dr. Zach Perry Primary Care Provider Dr. Zach Perry Referring Provider FRITZ Blake Attending Provider Dr. Zach Perry Primary Care Provider [phone] Dr. Zach Perry Referring Provider Juliano CASAS, YESSENIA Scherer Attending Provider Dr. Florin Miranda Emergency Provider [phone] Dr. Maryann Castañeda Admit Provider Dr. Maryann Castañeda Attending Provider Dr. Maryann Castañeda Other Provider Dr. Jennifer Carrillo Attending Provider Jeff Perry MD Primary Care Provider Dr. Zach Perry Primary Care Provider Dr. Zach Perry Referring Provider Dr. Kike Mccoy Attending Provider Juliano CASAS, PA Tish Scherer Attending Provider Jeff Perry MD Primary Care Provider [employer] ENGRAVING SUPERVISOR.Charu MERCER Unavailable Vicky GONZALEZ, Dr. Serrano Primary Care Provider Vicky GONZALEZ, Dr. Serrano Referring Provider Dr. Jose Martini DO Attending Provider Dr. Kike Mccoy MD Attending Provider Vicky GONZALEZ, Dr. Serrano Primary Care Provider Dr. Zach Perry MD Referring Provider Dr. Jose Martini DO Attending Provider Dr. Jose Martini DO Referring Provider Lou CORMIER-CEmigdio Attending Provider Travis ENGRAVING SUPERVISOR.Jabier MERCER Unavailable JABIER GIRON Attending Unavailable JEFF [...] Dry Cough [facility] (1 source) Lisinopril Drug Allergy 07-25-2025 [facility] Repository Medications Current Medications Medication Drug Class(es) [...] tablet by mouth four times daily. CEPHALEXIN [id number] Royce Aleman MD Start: 01-26-2010 End: 01-31-2010 take 1 tablet by mouth four times daily KEFLEX 500 MG CAPS One tablet by mouth four times daily. CEPHALEXIN [id number] Royce Aleman MD DIABETES MEDICATION (4 sources) [...] in NaCl (PF) 0.9% 10 mL injection ([facility]) predniSONE 10 mg oral tablet (20 sources) [...] 12 Lead EKGon 07-30-2025 12 Lead EKG [facility] [address] [place] [address] 12 Lead EKG 07/30/25 0721 MR#: [id number] Acct: [id number] Name: AL GONZALEZ Rep #: [id number] : 1965 60 From: Jonathan Vale MD Attending Dr: Dr. Jose Martini DO Status: AZ E SDC Ordering Dr: Jose Martini DO Date: 07/30/25 [place] [facility] [place]: M C Admitted: Test Reason : PREOP Blood Pressure : */* mmHG Vent. Rate : 57 BPM Atrial Rate : 57 BPM P-R Int : 84 ms QRS Dur : 96 ms QT Int : 418 ms P-R-T Axes : 0 11 18 degrees QTcB Int : 406 ms Sinus bradycardia with short [place] Otherwise normal ECG When compared with ECG of 23-Oct-2022 13:49, Sinus rhythm has replaced Ectopic atrial rhythm Nonspecific T wave abnormality, improved in Inferior leads Nonspecific T wave abnormality no longer evident in Anterolateral leads Confirmed by NELLY GONZALEZ, JONATHAN ([id number]), pictures editor HALEY DONALD ([id number]) on 07/30/2025 1:51:02 PM Referred By: Jose Martini Confirmed By: JONATHAN VALE MD 07/30/25 1351 Date Jonathan Vale MD CC: Dr. Zach Perry MD; Dr. Jose Martini DO Signed Normal [facility] CNOVon 07-23-2025 CNOV Office Visit (FAMPWS ) AL GONZALEZ ([id number]) 1965 M Date Time Provider Department 07/23/25 1:00 PM JABIER GIRON During your visit today, we recorded the following information about you: Pulse Blood pressure Weight 66/minute 120/77 106 kg Jabier Giron, ENGRAVING SUPERVISOR.DATA PROCESSING EQUIPMENT REPAIRER 07/23/2025 1:03 PM Signed Chief Complaint Patient presents with: Physical HPI Al Gonzalez is a 60 year old male who presents here today for Above Complaints. Patient presents for annual employment physical. Labs completed 07/19 at [facility] reviewed. Past medical history, appointments, medications, allergies reviewed. Previous Medical History PAST MEDICAL HISTORY Diagnosis Date Biceps tendon rupture bilateral s/p repair Class 1 obesity due to excess calories with serious comorbidity and body mass index (BMI) of 34.0 to 34.9 in adult DM II (diabetes mellitus, type II) ([facility]) Dr. Kike Mccoy. History of atrial [...] Screening Discontinued HIV Screening Discontinued Data reviewed [facility] Labs Reviewed, WNL ASSESSMENT/PLAN: 1. Annual physical [...] goal <1 (more content not included)... Normal [facility] CBC, Employeeon 07-19-2025 Absolute Lymph 1.96 X10 3/uL Normal 0.83-4.51 [facility] Comment on above: Performed By: #### L 506.1001, L501.9520, L501.9910, L502.0250 #### [facility] [address] [place], [address] Absolute Neut 3.5 X10 3/uL Normal 2.0-7.7 [facility] Comment on above: Performed By: #### L 506.1001, L501.9520, L501.9910, L502.0250 #### [facility] [address] [place], [address] Basophils/100 WBC (Bld) 0.9 % Normal 0-1 [facility] Comment on above: Performed By: #### L 506.1001, L501.9520, L501.9910, L502.0250 #### [facility] [address] [place], [address] Eosinophils/100 WBC (Bld) 5.3 % High 0-5 [facility] Comment on above: Performed By: #### L 506.1001, L501.9520, L501.9910, L502.0250 #### [facility] [address] [place], [address] Erythrocyte distribution width (RBC) [Ratio] 12.7 % Normal 11.6-14.6 [facility] Comment on above: Performed By: #### L 506.1001, L501.9520, L501.9910, L502.0250 #### [facility] [address] [place], [address] Hematocrit (Bld) [Volume fraction] 42.1 % Normal 40-54 [facility] Comment on above: Performed By: #### L 506.1001, L501.9520, L501.9910, L502.0250 #### [facility] [address] [place], [address] Hemoglobin (Bld) [Mass/Vol] 14.7 g/dL Normal 13.0-16.5 [facility] Comment on above: Performed By: #### L 506.1001, L501.9520, L501.9910, L502.0250 #### [facility] [address] [place], [address] Lymphocytes/100 WBC (Bld) 29.9 % Normal 19-41 [facility] Comment on above: Performed By: #### L 506.1001, L501.9520, L501.9910, L502.0250 #### [facility] [address] [place], [address] MCH (RBC) [Entitic mass] 30.9 pg Normal 27.0-32.0 [facility] Comment on above: Performed By: #### L 506.1001, L501.9520, L501.9910, L502.0250 #### [facility] [address] [place], [address] MCHC (RBC) [Mass/Vol] 34.9 g/dL Normal 32-36 [facility] Comment on above: Performed By: #### L 506.1001, L501.9520, L501.9910, L502.0250 #### [facility] [address] [place], [address] MCV (RBC) [Entitic vol] 88.6 fL Normal 80-94 [facility] Comment on above: Performed By: #### L 506.1001, L501.9520, L501.9910, L502.0250 #### [facility] [address] [place], [address] Monocytes/100 WBC (Bld) 10.5 % High 0-10 [facility] Comment on above: Performed By: #### L 506.1001, L501.9520, L501.9910, L502.0250 #### [facility] [address] [place], [address] Neutrophils/100 WBC (Bld) 52.9 % Normal 47-70 [facility] Comment on above: Performed By: #### L 506.1001, L501.9520, L501.9910, L502.0250 #### [facility] [address] [place], [address] NRBC # 0.00 10 3/uL Normal 0-5 [facility] Comment on above: Performed By: #### L 506.1001, L501.9520, L501.9910, L502.0250 #### [facility] [address] [place], [address] Nucleated RBC (Bld) [#/Vol] 0 10*3/uL Normal 0-5 [facility] Comment on above: Performed By: #### L 506.1001, L501.9520, L501.9910, L502.0250 #### [facility] [address] [place], [address] Platelet mean volume (Bld) [Entitic vol] 9.0 fL Normal 6.2-12.0 [facility] Comment on above: Performed By: #### L 506.1001, L501.9520, L501.9910, L502.0250 #### [facility] [address] [place], [address] Platelets (Bld) [#/Vol] 301 10*3/uL Normal 150-450 [facility] Comment on above: Performed By: #### L 506.1001, L501.9520, L501.9910, L502.0250 #### [facility] [address] [place], [address] RBC (Bld) [#/Vol] 4.75 10*6/uL Normal 4.6-6.2 [facility] Comment on above: Performed By: #### L 506.1001, L501.9520, L501.9910, L502.0250 #### [facility] [address] [place], [address] RDW SD 41.8 fl Normal 35.1-43.9 [facility] Comment on above: Performed By: #### L 506.1001, L501.9520, L501.9910, L502.0250 #### [facility] [address] [place], [address] WBC (Bld) [#/Vol] 6.6 10*3/uL Normal 4.4-11.0 [facility] Comment on above: Performed By: #### L 506.1001, L501.9520, L501.9910, L502.0250 #### [facility] [address] [place], [address] Comprehensive Metabolic Prof ilon 07-19-2025 ALB Normal 3.5-5.0 [facility] Comment on above: Result Comment: DUPL ICATE Performed By: #### L 506.1001, L501.9520, L501.9910, L502.0250 #### [facility] [address] [place], [address] ALK PHOS Normal 40-129 [facility] Comment on above: Result Comment: DUPL ICATE Performed By: #### L 506.1001, L501.9520, L501.9910, L502.0250 #### [facility] [address] [place], [address] ALT Normal <=46 [facility] Comment on above: Result Comment: DUPL ICATE Performed By: #### L 506.1001, L501.9520, L501.9910, L502.0250 #### [facility] [address] [place], [address] AST Normal <=37 [facility] Comment on above: Result Comment: DUPL ICATE Performed By: #### L 506.1001, L501.9520, L501.9910, L502.0250 #### [facility] [address] [place], [address] BUN Normal 4-19 [facility] Comment on above: Result Comment: DUPL ICATE Performed By: #### L 506.1001, L501.9520, L501.9910, L502.0250 #### [facility] [address] [place], [address] BUN/CRE Normal 10-20 [facility] Comment on above: Result Comment: DUPL ICATE Performed By: #### L 506.1001, L501.9520, L501.9910, L502.0250 #### [facility] [address] [place], [address] Calcium Normal 7.6-11.0 [facility] Comment on above: Result Comment: DUPL ICATE Performed By: #### L 506.1001, L501.9520, L501.9910, L502.0250 #### [facility] [address] [place], [address] CL Normal 98-108 [facility] Comment on above: Result Comment: DUPL ICATE Performed By: #### L 506.1001, L501.9520, L501.9910, L502.0250 #### [facility] [address] [place], [address] CO2 Normal 21.0-32.0 [facility] Comment on above: Result Comment: DUPL ICATE Performed By: #### L 506.1001, L501.9520, L501.9910, L502.0250 #### [facility] [address] [place], [address] CREAT,SERUM Normal 0.70-1.20 [facility] Comment on above: Result Comment: DUPL ICATE Performed By: #### L 506.1001, L501.9520, L501.9910, L502.0250 #### [facility] [address] [place], [address] eGFR Normal >60 [facility] Comment on above: Result Comment: DUPL ICATE Performed By: #### L 506.1001, L501.9520, L501.9910, L502.0250 #### [facility] [address] [place], [address] GAP Normal 5-15 [facility] Comment on above: Result Comment: DUPL ICATE Performed By: #### L 506.1001, L501.9520, L501.9910, L502.0250 #### [facility] [address] [place], [address] GLU Normal 70-99 [facility] Comment on above: Result Comment: DUPL ICATE Performed By: #### L 506.1001, L501.9520, L501.9910, L502.0250 #### [facility] [address] [place], [address] Potassium Normal 3.3-5.1 [facility] Comment on above: Result Comment: DUPL ICATE Performed By: #### L 506.1001, L501.9520, L501.9910, L502.0250 #### [facility] [address] [place], [address] T BILI Normal 0.00-1.30 [facility] Comment on above: Result Comment: DUPL ICATE Performed By: #### L 506.1001, L501.9520, L501.9910, L502.0250 #### [facility] [address] [place], [address] T PROT Normal 5.9-8.4 [facility] Comment on above: Result Comment: DUPL ICATE Performed By: #### L 506.1001, L501.9520, L501.9910, L502.0250 #### [facility] [address] [place], [address] Comprehensive Metabolic Profil Normal 133-145 [facility] Comment on above: Result Comment: DUPL ICATE Performed By: #### L 506.1001, L501.9520, L501.9910, L502.0250 #### [facility] [address] [place], [address] Employee Profileon 5 CHOL:HDL 3.79 Normal [facility] Comment on above: Order Comment: SEND LIPID,CMP DO EMIGDIO LOU Performed By: #### L 506.1001, L501.9520, L501.9910, L502.0250 #### [facility] [address] [place], [address] Cholesterol [Mass/Vol] 138 mg/dL Normal <=200 [facility] Comment on above: Order Comment: SEND LIPID,CMP DO EMIGDIO LOU Result Comment: Chol esterol level, Desirable <200 mg/dL Borderline high cholesterol 200-239 mg/dL High cholesterol >=240 mg/dL Recommendations of the NCEP Adult Treatment Panel for the following risk-cutoff thresholds for the [place] population. Performed By: #### L 506.1001, L501.9520, L501.9910, L502.0250 #### [facility] [address] [place], [address] Cholesterol in HDL [Mass/Vol] 36 mg/dL Low [facility] Comment on above: Order Comment: SEND LIPID,CMP [...] L502.0250 #### [facility] [address] [place], [address] Cholesterol in LDL [Mass/Vol] 76 mg/dL Normal [facility] Comment on above: Order Comment: SEND LIPID,AUBREE VALADEZ Result Comment: Bord ywdhnl=572-927 mg/dL Higher Rdvk=299 mg/dL or greater Friedwald Equation for LDL-C Performed By: #### L 506.1001, L501.9520, L501.9910, L502.0250 #### [facility] [address] [place], [address] Cholesterol in VLDL [Mass/Vol] 26 mg/dL Normal 5-40 [facility] Comment on above: Order Comment: SEND LIPID,AUBREE VALADEZ Performed By: #### L 506.1001, L501.9520, L501.9910, L502.0250 #### [facility] [address] [place], [address] Triglyceride [Mass/Vol] 128 mg/dL Normal [facility] Comment on above: Order Comment: SEND LIPID,CMP DO EMIGDIO LOU Result Comment: The drugs N-Acetylcysteine and Metamizole may falsely depress this assay. Normal range: <150 mg/dL Borderline High: 150-199 mg/dL High: 200-499 mg/dL Very High: >500 mg/dL Performed By: #### L 506.1001, L501.9520, L501.9910, L502.0250 #### [facility] [address] [place], [address] URIC 6.3 mg/dL Normal 3.5-7.2 [facility] Comment on above: Order Comment: SEND LIPID,CMP DO EMIGDIO LOU Result Comment: The drugs N-Acetylcysteine and Metamizole may falsely depress this assay. Performed By: #### L 506.1001, L501.9520, L501.9910, L502.0250 #### [facility] [address] [place], [address] Lipid Profileon 07-19-2025 CHOL Normal <=200 [facility] Comment on above: Result Comment: DUPL ICATE Performed By: #### L 506.1001, L501.9520, L501.9910, L502.0250 #### [facility] [address] [place], [address] CHOL:HDL Normal [facility] Comment on above: Result Comment: DUPL ICATE Performed By: #### L 506.1001, L501.9520, L501.9910, L502.0250 #### [facility] [address] [place], [address] CLDL Normal [facility] Comment on above: Result Comment: DUPL ICATE Performed By: #### L 506.1001, L501.9520, L501.9910, L502.0250 #### [facility] [address] [place], [address] HDL Normal [facility] Comment on above: Result Comment: DUPL ICATE Performed By: #### L 506.1001, L501.9520, L501.9910, L502.0250 #### [facility] [address] [place], [address] TRIG Normal [facility] Comment on above: Result Comment: DUPL ICATE Performed By: #### L 506.1001, L501.9520, L501.9910, L502.0250 #### [facility] [address] [place], [address] VLDL Normal 5-40 [facility] Comment on above: Result Comment: DUPL ICATE Performed By: #### L 506.1001, L501.9520, L501.9910, L502.0250 #### [facility] [address] [place], [address] Microalb:Creat Ratio,Random URon 07-19-2025 Creatinine [Mass/Vol] 304.00 mg/dL High 39.00- 259.0 0 [facility] Comment on above: Performed By: #### L 506.1001, L501.9520, L501.9910, L502.0250 #### [facility] [address] [place], [address] MALB:CREAT UNABLE TO CALCULATE Normal <30 mg/g CRE [facility] Comment on above: Performed By: #### L 506.1001, L501.9520, L501.9910, L502.0250 #### [facility] [address] [place], [address] MICROALBUMIN,UR < 12.0 Normal <20 mg/L [facility] Comment on above: Performed By: #### L 506.1001, L501.9520, L501.9910, L502.0250 #### [facility] [address] [place], [address] PSA,Total - Annual Screenon 07-19-2025 PSA,TOT SCREEN 0.34 ng/mL Normal 0.02-4.00 [facility] Comment on above: Result Comment: This test [...] L502.0250 #### [facility] [address] [place], [address] Thyroid Stim Hormone (TSH)on 07-19-2025 TSH 1.700 uIU/mL Normal 0.300-4.200 [facility] Comment on above: Performed By: #### L 506.1001, L501.9520, L501.9910, L502.0250 #### [facility] [address] [place], [address] Urinalysis, Employeeon 07-19 BILIRUBIN URINE Negative Normal Negative [facility] Comment on above: Order Comment: Urine , Random Performed By: #### L 506.1001, L501.9520, L501.9910, L502.0250 #### [facility] [address] [place], [address] Clarity (U) Clear Normal Clear [facility] Comment on above: Order Comment: Urine , Random Performed By: #### L 506.1001, L501.9520, L501.9910, L502.0250 #### [facility] [address] [place], [address] Color (U) Yellow Normal Yellow [facility] Comment on above: Order Comment: Urine , Random Performed By: #### L 506.1001, L501.9520, L501.9910, L502.0250 #### [facility] [address] [place], [address] GLUCOSE, UR Normal Normal Normal [facility] Comment on above: Order Comment: Urine , Random Performed By: #### L 506.1001, L501.9520, L501.9910, L502.0250 #### [facility] [address] [place], [address] KETONE UR 5 mg/dl Abnormal Negative [facility] Comment on above: Order Comment: Urine , Random Performed By: #### L 506.1001, L501.9520, L501.9910, L502.0250 #### [facility] [address] [place], [address] LEUK ESTERASE Negative Normal Negative [facility] Comment on above: Order Comment: Urine , Random Performed By: #### L 506.1001, L501.9520, L501.9910, L502.0250 #### [facility] [address] [place], [address] Nitrite Ql (U) Negative Normal Negative [facility] Comment on above: Order Comment: Urine , Random Performed By: #### L 506.1001, L501.9520, L501.9910, L502.0250 #### [facility] [address] [place], [address] OCCULT BLOOD-UR Negative Normal Negative [facility] Comment on above: Order Comment: Urine , Random Performed By: #### L 506.1001, L501.9520, L501.9910, L502.0250 #### [facility] [address] [place], [address] pH UR 5.0 Normal 5.0 - 8.0 [facility] Comment on above: Order Comment: Urine , Random Performed By: #### L 506.1001, L501.9520, L501.9910, L502.0250 #### [facility] [address] [place], [address] PROT DIPSTX 30 mg/dl Abnormal Negative [facility] Comment on above: Order Comment: Urine , Random Performed By: #### L 506.1001, L501.9520, L501.9910, L502.0250 #### [facility] [address] [place], [address] SP.GR. DIPSTX 1.020 Normal 1.002-1.030 [facility] Comment on above: Order Comment: Urine , Random Performed By: #### L 506.1001, L501.9520, L501.9910, L502.0250 #### [facility] [address] [place], [address] UROBILI Normal Normal Normal [facility] Comment on above: Order Comment: Urine , Random Performed By: #### L 506.1001, L501.9520, L501.9910, L502.0250 #### [facility] [address] [place], [address] Vitamin D,25 Hydroxyon 07-19 Vitamin D 25-OH 23.2 ng/mL Low 30-100 [facility] Comment on above: Result Comment: Madiha min D Status Deficiency: <20 ng/mL (50nmol/L) Insufficiency: 20-30 ng/mL (50-75 nmol/L) Sufficiency: 30-100 ng/mL (75-250 nmol/L) Toxicity: >100 ng/mL (>250 nmol/L) Performed By: #### L 506.1001, L501.9520, L501.9910, L502.0250 #### [facility] [address] [place], [address] Endocrinology Visit Reporton 07-17-2025 Endocrinology Visit Report [facility] 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 Normal [facility] Knee 4 or More Viewson 06-12 Knee 4 or More Views [facility] Imaging Services [address] [place], [place] [address] Knee 4 or More Views MR#: [id number] Acct: [id number] Name: AL GONZALEZ Rep #: [id number] : 1965 M 60 From: Pineda gaviria MD PCP: Dr. Zach Perry MD Status: REG CLI Study: Knee 4 or More Views Date of Exam: 06/12/25 Exam# [id number] Ordering Dr: Jose Martini DO PROCEDURE: KNEE [...] Views IMPRESSION: Degenerative joint disease. Reading Location: [place] [address] CC: Dr. Zach Perry MD; Dr. Jose Martini DO Stripper And Printer: Signed Normal [facility] Knee 4 or More Views [facility] Imaging Services [address] [place] [address] Knee 4 or More Views MR#: [id number] Acct: [id number] Name: AL GONZALEZ Rep #: [id number] : 1965 M 60 From: Hector Bernal MD PCP: Dr. Zach Perry MD Status: REG CLI Study: Knee 4 or More Views Date of Exam: 06/12/25 Exam# [id number] Ordering Dr: Jose Martini DO PROCEDURE: KNEE 4 OR MORE VIEWS 06/12/2025 REASON FOR EXAM: KNEE PAIN TECHNIQUE: KNEE 4 OR MORE VIEWS COMPARISON: 04/04/2024 FINDINGS: Mild medial femorotibial joint space narrowing. Fragmented tibial tuberosity. Small osteophytes. No acute bone or soft tissue pathology. RAD/Knee 4 or More Views IMPRESSION: Mild right knee osteoarthritis. Possible history of Staley-Schlatter disease. Reading Location: [place] [address] CC: Dr. Zach Perry MD; Dr. Jose Martini DO Stripper And Printer: Signed Normal [facility] Orthopedic Visit Reporton Orthopedic Visit Report [facility] [address] [place] [address] OFFICE VISIT Date of Service: 06/12/25 MR#: [id number] Acct: [id number] Name: AL GONZALEZ Rep #: [id number] : 1965 Provider: Dr. Jose lloyd DO Age/Sex: 60/M Location: [facility] [place] Status: Signed Intake Vital Signs 04/16/25 15:21 [...] 06/10/25 06/12/25 Rx subcutaneous pen injector (Mounjaro) [facility] Medical History Diabetes Obesity COVID Acute hyperglycemia [...] knees. He states he does workout at [employer] and tries to bike and work on [...] included)... Normal [facility] Endocrinology Visit Reporton 04-16-2025 Endocrinology Visit Report [facility] [facility] [facility] [address] [place] [address] OFFICE VISIT Date of Service: 04/16/25 MR#: [id number] Acct: [id number] Name: AL GONZALEZ Rep #: [id number] : 1965 Provider: Gilmer Mcqueen Age/Sex: 60/M [place] [facility] [place]: Signed Intake Vital Signs 06/21/24 15:33 [...] nourished Orientation: alert, awake and oriented x3 HENKS Head: normal to inspection Ears: hearing grossly [...] Diabetes mellitus type: type 2 Diabetes mellitus jail insulin use: without jail use Diabetes mellitus complication status: with hyperglycemia Qualified Code(s): E11.65 - Type 2 diabetes mellitus with hyperglycemia P (more content not included)... Normal [place] [facility] - Hematology and Cell countsOrdered By: Kike Mccoy on 04-16-2025 HbA1c (Bld) [Mass fraction] 7.8 % High 4.2-6.3 [facility] Orthopedic Visit Reporton Orthopedic Visit Report [facility] [address] [place] [address] [address] [place] [address] OFFICE VISIT Date of Service: 12/19/24 MR#: [id number] Acct: [id number] Name: AL GONZALEZ Rep #: [id number] : 1965 Provider: Dr. Jose lloyd DO Age/Sex: 59/M Location: [facility] [place] Status: Signed Intake Vital Signs 06/21/24 15:33 [...] Performing Provider: Jose Martini DO Performing Location: [facility] Administered by: Jose Martini DO on 12/19/24 15:51 Dose Route Admin Location Dispensed Lot Number Expiration Date NEC Man ufacturer 40 mg intra-articular bilateral knee 4 mL [id number] 10/22/25 [address]-1 [employer] Supplemental Info 04/04/2024 x-ray [...] included)... Normal [facility] Orthopedic Visit Reporton Orthopedic Visit Report [facility] [address] [place] [address] OFFICE VISIT Date of Service: 12/12/24 MR#: [id number] Acct: [id number] Name: AL GONZALEZ Rep #: [id number] : 1965 Provider: Dr. Jose lloyd DO Age/Sex: 59/M Location[facility] [place] Status: Signed Intake Vital Signs 06/21/24 15:33 [...] mg PO QDAY #90 caps 12/12/24 Rx [facility] Medical History Diabetes Obesity COVID Acute hyperglycemia [...] included)... Normal [facility] Orthopedic Visit Reporton Orthopedic Visit Report [facility] [address] [place] [address] OFFICE VISIT Date of Service: 12/05/24 MR#: [id number] Acct: [id number] Name: AL GONZALEZ Rep #: [id number] [...] Performing Provider: Jose Martini DO Performing Location: [facility] Administered by: Jose Martini DO on 12/05/24 15:50 Dose Route Admin Location Dispensed Lot Number Expiration Date [facility] Man ufacturer 40 mg intra-articular bilateral knees 4 mL [id number] 10/22/25 [address]-6 [employer] Supplemental Info 04/04/2024 x-ray right knee: 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 Normal [facility] CNPNon 11-08-2024 [facility] ([id number]) 1965 M Date Time Provider Department 11/08/24 JEFF PERRY [facility] During your visit today, we recorded the following information about you: Ju Iverson LPN 11/08/2024 11:25 AM Signed Patient calling, states he had his US on 11/03 at [facility]. Asking if PCP has received the results. [...] reports he will have lab completed at [facility] and call back sizer to February follow up to request order and have it faxed to [facility]. Ivory Taveras RN Allergies As of Date: [...] Encounter Status:Closed by IVORY TAVERAS on 11/08/24 [facility] Kidney and Bladderon 024 Kidney and Bladder [facility] Imaging Services [address] [place], [place] [address] Kidney and Bladder MR#: [id number] Acct: [id number] Name: AL GONZALEZ Rep #: [id number] : 1965 M 59 From: Colby Michael MD PCP: Dr. Zach Perry MD Status: REG CLI Study: Kidney and Bladder Date of Exam: 11/03/24 Exam# [id number] Ordering Dr: Zach Perry [id number] STUDY: RENAL ULTRASOUND - COMPLETE REASON FOR [...] EST , CC: Dr. Zach Perry MD Stripper And Printer: Signed Normal [facility] 10-30-2024 [facility] Telephone ([facility]) AL GONZALEZ ([id number]) 1965 M Date Time Provider Department 10/30/24 JEFF PERRY [facility] During your visit today, we recorded the following information about you: Jeff Perry MD 10/30/2024 11:44 AM Signed Received patient's repeat UA from [facility] which shows continued small amount of protein and small amount of blood. Protein is likely 2/2 diabetes. Will check US of kidneys for further workup. Belle Abdi LPN 10/30/2024 12:02 PM Signed Phoned patient and reviewed results with him. Patient voiced understanding and he requested order be sent to [facility]. He will contact them for scheduling after Norytom Abdi LPN Allergies As of Date: 10/30/2024 Noted Allergy Reaction NO KNOWN DRUG ALLERGIES 11/15/2005 Date Reviewed: 08/15/2024 Reviewed by: Tish Sharma LPN - Fully Assessed Reason for Visit: Results [95] Primary Visit Diagnosis:Proteinuria, unspecified type [R80.9] Order(s):US KIDNEY/BLADDER [3463850] Order #: [id number] FUTURE Prescriptions as of 10/30/2024 - losartan [...] Status:Closed by BELLE ABDI on 10/30/[address] [facility] Urinalysis, Completeon 10-22 RBC 0-5 SEEN Normal 0-5 [facility] Comment on above: Order Comment: Urine , Random Performed By: #### L 506.1001, L501.9520, L501.9910, L502.0250 #### [facility] [address] [place], [address] BACTERIA 0 SEEN Normal None Seen [facility] Comment on above: Order Comment: Urine , Random Performed By: #### L 506.1001, L501.9520, L501.9910, L502.0250 #### [facility] [address] [place], [address] EPI,SQUAMOUS 0 SEEN Normal 0-5 [facility] Comment on above: Order Comment: Urine , Random Performed By: #### L 506.1001, L501.9520, L501.9910, L502.0250 #### [facility] [address] [place], [address] Mucus Ql (Urine sed) 0 SEEN Normal [facility] Comment on above: Order Comment: Urine , Random Performed By: #### L 506.1001, L501.9520, L501.9910, L502.0250 #### [facility] [address] [place], [address] WBC 0 SEEN Normal 0-5 [facility] Comment on above: Order Comment: Urine , Random Performed By: #### L 506.1001, L501.9520, L501.9910, L502.0250 #### [facility] [address] [place], [address] [facility] Telephone ([facility]) AL GONZALEZ ([id number]) 1965 Date Time Provider Department 08/22/24 JEFF PERRYPMONIKA During your visit today, we recorded the following information about you: Jeff Perry MD 08/22/2024 12:08 PM Signed Labs completed at [facility] on 08/13 shows controlled DM with A1c [...] Lab for future ua was faxed to [facility]. Allergies As of Date: 08/22/2024 Noted Allergy Reaction NO KNOWN DRUG ALLERGIES 11/15/2005 Date Reviewed: 08/15/2024 Reviewed by: Tish Sharma LPN - Fully Assessed Reason for Visit: Results [95] Primary Visit Diagnosis:Proteinuria, unspecified type [R80.9] Order(s):URINALYSIS, WITH MICROSCOPIC [SQUAWMIC] Order #: [id number] FUTURE Prescriptions as of 09/26/2024 - losartan [...] Encounter Status:Closed by JEFF PERRY on 09/26/24 [facility] CNOVon 08-15-2024 CNOV Office Visit ([facility] ) AL GONZALEZ ([id number]) 1965 M Date Time Provider Department 08/15/24 [...] for Above Complaints. DIABETES MELLITUS: Follows with [facility] endocrinology with last appointment last month. Last [...] month per patient Atrial fib: follows with [facility] cardiology office visit on 02/21/2024. No medication [...] adult DM II (diabetes mellitus, type II) ([facility]) Dr. Kike Mccoy. History of atrial [...] Vaccine(3 - (more content not included)... Normal [facility] CBC W/Diff, Automatedon 10-0 Absolute Lymph 1.40 X10 3/uL Normal 0.83-4.51 [facility] Comment on above: Performed By: #### L 500.4100, L500.4050, L100.0100, L501.9985, L501.9940 #### [facility] [address] [place], [address] Absolute Neut 2.2 X10 3/uL Normal 2.0-7.7 [facility] Comment on above: Performed By: #### L 500.4100, L500.4050, L100.0100, L501.9985, L501.9940 #### [facility] [address] [place], [address] Basophils/100 WBC (Bld) 1.1 % High 0-1 [facility] Comment on above: Performed By: #### L 500.4100, L500.4050, L100.0100, L501.9985, L501.9940 #### [facility] [address] [place], [address] Eosinophils/100 WBC (Bld) 7.4 % High 0-5 [facility] Comment on above: Performed By: #### L 500.4100, L500.4050, L100.0100, L501.9985, L501.9940 #### [facility] [address] [place], [address] Erythrocyte distribution width (RBC) [Ratio] 13.0 % Normal 11.6-14.6 [facility] Comment on above: Performed By: #### L 500.4100, L500.4050, L100.0100, L501.9985, L501.9940 #### [facility] [address] [place], [address] Hematocrit (Bld) [Volume fraction] 41.2 % Normal 40-54 [facility] Comment on above: Performed By: #### L 500.4100, L500.4050, L100.0100, L501.9985, L501.9940 #### [facility] [address] [place], [address] Hemoglobin (Bld) [Mass/Vol] 13.6 g/dL Normal 13.0-16.5 [facility] Comment on above: Performed By: #### L 500.4100, L500.4050, L100.0100, L501.9985, L501.9940 #### [facility] [address] [place], [address] IG% 0.200 Normal 0.0-0.9 [facility] Comment on above: Result Comment: IG% - Immature Granulocytes (promyelocytes, myelocytes and metamyelocytes) > 1% indicates that a LEFT SHIFT is Present. Performed By: #### L 500.4100, L500.4050, L100.0100, L501.9985, L501.9940 #### [facility] [address] [place], [address] Lymphocytes/100 WBC (Bld) 31.3 % Normal 19-41 [facility] Comment on above: Performed By: #### L 500.4100, L500.4050, L100.0100, L501.9985, L501.9940 #### [facility] [address] [place], [address] MCH (RBC) [Entitic mass] 30.6 pg Normal 27.0-32.0 [facility] Comment on above: Performed By: #### L 500.4100, L500.4050, L100.0100, L501.9985, L501.9940 #### [facility] [address] [place], [address] MCHC (RBC) [Mass/Vol] 33.0 g/dL Normal 32-36 [facility] Comment on above: Performed By: #### L 500.4100, L500.4050, L100.0100, L501.9985, L501.9940 #### [facility] [address] [place], [address] MCV (RBC) [Entitic vol] 92.6 fL Normal 80-94 [facility] Comment on above: Performed By: #### L 500.4100, L500.4050, L100.0100, L501.9985, L501.9940 #### [facility] [address] [place], [address] Monocytes/100 WBC (Bld) 10.5 % High 0-10 [facility] Comment on above: Performed By: #### L 500.4100, L500.4050, L100.0100, L501.9985, L501.9940 #### [facility] [address] [place], [address] Neutrophils/100 WBC (Bld) 49.5 % Normal 47-70 [facility] Comment on above: Performed By: #### L 500.4100, L500.4050, L100.0100, L501.9985, L501.9940 #### [facility] [address] [place], [address] Nucleated RBC (Bld) [#/Vol] 0 10*3/uL Normal 0-5 [facility] Comment on above: Performed By: #### L 500.4100, L500.4050, L100.0100, L501.9985, L501.9940 #### [facility] [address] [place], [address] Platelet mean volume (Bld) [Entitic vol] 9.0 fL Normal 6.2-12.0 [facility] Comment on above: Performed By: #### L 500.4100, L500.4050, L100.0100, L501.9985, L501.9940 #### [facility] [address] [place], [address] Platelets (Bld) [#/Vol] 283 10*3/uL Normal 150-450 [facility] Comment on above: Performed By: #### L 500.4100, L500.4050, L100.0100, L501.9985, L501.9940 #### [facility] [address] [place], [address] RBC (Bld) [#/Vol] 4.45 10*6/uL Low 4.6-6.2 [facility] Comment on above: Performed By: #### L 500.4100, L500.4050, L100.0100, L501.9985, L501.9940 #### [facility] [address] [place], [address] RDW SD 44.2 fl High 35.1-43.9 [facility] Comment on above: Performed By: #### L 500.4100, L500.4050, L100.0100, L501.9985, L501.9940 #### [facility] [address] [place], [address] WBC (Bld) [#/Vol] 4.5 10*3/uL Normal 4.4-11.0 [facility] Comment on above: Performed By: #### L 500.4100, L500.4050, L100.0100, L501.9985, L501.9940 #### [facility] [address] [place], [address] CBC, [employer] 08-13-2024 Absolute Lymph 1.30 X10 3/uL Normal 0.83-4.51 [facility] Comment on above: Performed By: #### L 506.1001, L501.9520, L501.9910, L502.0250 #### [facility] [address] [place], [address] Absolute Neut 2.1 X10 3/uL Normal 2.0-7.7 [facility] Comment on above: Performed By: #### L 506.1001, L501.9520, L501.9910, L502.0250 #### [facility] [address] [place], [address] Basophils/100 WBC (Bld) 0.9 % Normal 0-1 [facility] Comment on above: Performed By: #### L 506.1001, L501.9520, L501.9910, L502.0250 #### [facility] [address] [place], [address] Eosinophils/100 WBC (Bld) 7.0 % High 0-5 [facility] Comment on above: Performed By: #### L 506.1001, L501.9520, L501.9910, L502.0250 #### [facility] [address] [place], [address] Erythrocyte distribution width (RBC) [Ratio] 12.9 % Normal 11.6-14.6 [facility] Comment on above: Performed By: #### L 506.1001, L501.9520, L501.9910, L502.0250 #### [facility] [address] [place], [address] Hematocrit (Bld) [Volume fraction] 41.6 % Normal 40-54 [facility] Comment on above: Performed By: #### L 506.1001, L501.9520, L501.9910, L502.0250 #### [facility] [address] [place], [address] Hemoglobin (Bld) [Mass/Vol] 13.7 g/dL Normal 13.0-16.5 [facility] Comment on above: Performed By: #### L 506.1001, L501.9520, L501.9910, L502.0250 #### [facility] [address] [place], [address] Lymphocytes/100 WBC (Bld) 30.5 % Normal 19-41 [facility] Comment on above: Performed By: #### L 506.1001, L501.9520, L501.9910, L502.0250 #### [facility] [address] [place], [address] MCH (RBC) [Entitic mass] 30.7 pg Normal 27.0-32.0 [facility] Comment on above: Performed By: #### L 506.1001, L501.9520, L501.9910, L502.0250 #### [facility] [address] [place], [address] MCHC (RBC) [Mass/Vol] 32.9 g/dL Normal 32-36 [facility] Comment on above: Performed By: #### L 506.1001, L501.9520, L501.9910, L502.0250 #### [facility] [address] [place], [address] MCV (RBC) [Entitic vol] 93.3 fL Normal 80-94 [facility] Comment on above: Performed By: #### L 506.1001, L501.9520, L501.9910, L502.0250 #### [facility] [address] [place], [address] Monocytes/100 WBC (Bld) 11.0 % High 0-10 [facility] Comment on above: Performed By: #### L 506.1001, L501.9520, L501.9910, L502.0250 #### [facility] [address] [place], [address] Neutrophils/100 WBC (Bld) 50.4 % Normal 47-70 [facility] Comment on above: Performed By: #### L 506.1001, L501.9520, L501.9910, L502.0250 #### [facility] [place] [facility] [address] [place], [address] NRBC # 0.00 10 3/uL Normal 0-5 [facility] Comment on above: Performed By: #### L 506.1001, L501.9520, L501.9910, L502.0250 #### [facility] [address] [place], [address] Nucleated RBC (Bld) [#/Vol] 0 10*3/uL Normal 0-5 [facility] Comment on above: Performed By: #### L 506.1001, L501.9520, L501.9910, L502.0250 #### [facility] [address] [place], [address] Platelet mean volume (Bld) [Entitic vol] 9.0 fL Normal 6.2-12.0 [facility] Comment on above: Performed By: #### L 506.1001, L501.9520, L501.9910, L502.0250 #### [facility] [address] [place], [address] Platelets (Bld) [#/Vol] 275 10*3/uL Normal 150-450 [facility] Comment on above: Performed By: #### L 506.1001, L501.9520, L501.9910, L502.0250 #### [facility] [address] [place], [address] RBC (Bld) [#/Vol] 4.46 10*6/uL Low 4.6-6.2 [facility] Comment on above: Performed By: #### L 506.1001, L501.9520, L501.9910, L502.0250 #### [facility] [address] [place], [address] RDW SD 44.1 fl High 35.1-43.9 [facility] Comment on above: Performed By: #### L 506.1001, L501.9520, L501.9910, L502.0250 #### [facility] [address] [place], [address] WBC (Bld) [#/Vol] 4.3 10*3/uL Low 4.4-11.0 [facility] Comment on above: Performed By: #### L 506.1001, L501.9520, L501.9910, L502.0250 #### [facility] [address] [place], [address] Comprehensive Metabolic Prof [facility] 08-13-2024 Albumin [Mass/Vol] 3.8 g/dL Normal 3.2-5.0 [facility] Comment on above: Performed By: #### L 500.4100, L500.4050, L100.0100, L501.9985, L501.9940 #### [facility] [address] [place], [address] Albumin/Globulin [Mass ratio] 1.1 {ratio} Normal 0.9-2.4 [facility] Comment on above: Performed By: #### L 500.4100, L500.4050, L100.0100, L501.9985, L501.9940 #### [facility] [address] [place], [address] ALK P 52 U/L Normal 45-117 [facility] Comment on above: Performed By: #### L 500.4100, L500.4050, L100.0100, L501.9985, L501.9940 #### [facility] [address] [place], [address] ALT [Catalytic activity/Vol] 24 U/L Normal 16-61 [facility] Comment on above: Performed By: #### L 500.4100, L500.4050, L100.0100, L501.9985, L501.9940 #### [facility] [address] [place], [address] AST [Catalytic activity/Vol] 12 U/L Low 15-37 [facility] Comment on above: Performed By: #### L 500.4100, L500.4050, L100.0100, L501.9985, L501.9940 #### [facility] [address] [place], [address] Bilirubin [Mass/Vol] 0.90 mg/dL Normal 0.20-1.[address] [facility] Comment on above: Result Comment: For patients on eltrombopag therapy, use of Dimension [place] TBIL is not recommended. Performed By: #### L 500.4100, L500.4050, L100.0100, L501.9985, L501.9940 #### [facility] [address] [place], [address] BUN/CRE 20.3 RATIO High 10-20 [facility] Comment on above: Performed By: #### L 500.4100, L500.4050, L100.0100, L501.9985, L501.9940 #### [facility] [address] [place], [address] CA,Total 9.2 mg/dL Normal 8.5-10.1 [facility] Comment on above: Performed By: #### L 500.4100, L500.4050, L100.0100, L501.9985, L501.9940 #### [facility] [address] [place], [address] Chloride [Moles/Vol] 105 mmol/L Normal 98-[address] [facility] Comment on above: Performed By: #### L 500.4100, L500.4050, L100.0100, L501.9985, L501.9940 #### [facility] [address] [place], [address] CO2 [Moles/Vol] 30.0 mmol/L Normal 21.0-32.0 [facility] Comment on above: Performed By: #### L 500.4100, L500.4050, L100.0100, L501.9985, L501.9940 #### [facility] [address] [place], [address] Creatinine [Mass/Vol] 0.89 mg/dL Normal 0.70-1.30 [facility] Comment on above: Result Comment: The validity of the calculated GFR GFRAA in patients over 70 years has not been determined. Clinical correlation is essential. Performed By: #### L 500.4100, L500.4050, L100.0100, L501.9985, L501.9940 #### [facility] [address] [place], [address] EST GFR - AA 114 mL/min Normal >60 [facility] Comment on above: Result Comment: Afri can Dutch GFR Calc Performed By: #### L 500.4100, L500.4050, L100.0100, L501.9985, L501.9940 #### [facility] [address] [place], [address] GAP 4 Low 5-15 [facility] Comment on above: Performed By: #### L 500.4100, L500.4050, L100.0100, L501.9985, L501.9940 #### [facility] [address] [place], [address] GFR/1.73 sq M.predicted among non-blacks MDRD (S/P/Bld) [Vol rate/Area] 94 mL/min/{1.73_m2} Normal >60 [facility] Comment on above: Result Comment: Non- GFR Calc Performed By: #### L 500.4100, L500.4050, L100.0100, L501.9985, L501.9940 #### [facility] [address] [place], [address] Globulin (S) [Mass/Vol] 3.5 g/dL Normal 2.2-4.2 [facility] Comment on above: Performed By: #### L 500.4100, L500.4050, L100.0100, L501.9985, L501.9940 #### [facility] [address] [place], [address] Glucose [Mass/Vol] 174 mg/dL High 74-106 [facility] Comment on above: Result Comment: Fast ing Glucose result greater than or equal to 126 mg/dL suggests DIABETES MELLITUS per A.D.A. criteria. Performed By: #### L 500.4100, L500.4050, L100.0100, L501.9985, L501.9940 #### [facility] [address] [place], [address] Potassium [Moles/Vol] 4.2 mmol/L Normal 3.5-5.1 [facility] Comment on above: Performed By: #### L 500.4100, L500.4050, L100.0100, L501.9985, L501.9940 #### [facility] [address] [place], [address] Sodium [Moles/Vol] 138 mmol/L Normal 136-145 [facility] Comment on above: Performed By: #### L 500.4100, L500.4050, L100.0100, L501.9985, L501.9940 #### [facility] [address] [place], [address] T PROT 7.3 g/dL Normal 6.4-8.2 [facility] Comment on above: Performed By: #### L 500.4100, L500.4050, L100.0100, L501.9985, L501.9940 #### [facility] [address] [place], [address] Urea nitrogen [Mass/Vol] 18 mg/dL Normal 7-18 [facility] Comment on above: Performed By: #### L 500.4100, L500.4050, L100.0100, L501.9985, L501.9940 #### [facility] [address] [place], [address] [employer] 4 Albumin [Mass/Vol] 3.8 g/dL Normal 3.2-5.0 [facility] Comment on above: Performed By: #### L 506.1001, L501.9520, L501.9910, L502.0250 #### [facility] [address] [place], [address] Albumin/Globulin [Mass ratio] 1.2 {ratio} Normal 0.9-2.4 [facility] Comment on above: Performed By: #### L 506.1001, L501.9520, L501.9910, L502.0250 #### [facility] [address] [place], [address] ALK P 51 U/L Normal 45-117 [facility] Comment on above: Performed By: #### L 506.1001, L501.9520, L501.9910, L502.0250 #### [facility] [address] [place], [address] ALT [Catalytic activity/Vol] 24 U/L Normal 16-61 [facility] Comment on above: Performed By: #### L 506.1001, L501.9520, L501.9910, L502.0250 #### [facility] [address] [place], [address] AST [Catalytic activity/Vol] 13 U/L Low 15-37 [facility] Comment on above: Performed By: #### L 506.1001, L501.9520, L501.9910, L502.0250 #### [facility] [address] [place], [address] Bilirubin [Mass/Vol] 0.80 mg/dL Normal 0.20-1.[address] [facility] Comment on above: Result Comment: For patients on eltrombopag therapy, use of Dimension [place] TBIL is not recommended. Performed By: #### L 506.1001, L501.9520, L501.9910, L502.0250 #### [facility] [address] [place], [address] Bilirubin.direct [Mass/Vol] 0.15 mg/dL Normal 0.00-0.30 [facility] Comment on above: Performed By: #### L 506.1001, L501.9520, L501.9910, L502.0250 #### [facility] [address] [place], [address] BUN/CRE 20.0 RATIO Normal 10-20 [facility] Comment on above: Performed By: #### L 506.1001, L501.9520, L501.9910, L502.0250 #### [facility] [address] [place], [address] CA,Total 8.9 mg/dL Normal 8.5-10.1 [facility] Comment on above: Performed By: #### L 506.1001, L501.9520, L501.9910, L502.0250 #### [facility] [address] [place], [address] Chloride [Moles/Vol] 105 mmol/L Normal 98-[address] [facility] Comment on above: Performed By: #### L 506.1001, L501.9520, L501.9910, L502.0250 #### [facility] [address] [place], [address] CHOL:HDL 3.70 Normal [facility] Comment on above: Performed By: #### L 506.1001, L501.9520, L501.9910, L502.0250 #### [facility] [address] [place], [address] Cholesterol [Mass/Vol] 174 mg/dL Normal 200 [facility] Comment on above: Result Comment: <200 mg/dL Desirable 200-240 mg/dL Borderline >240 mg/dL High Risk Performed By: #### L 506.1001, L501.9520, L501.9910, L502.0250 #### [facility] [address] [place], [address] Cholesterol in HDL [Mass/Vol] 47 mg/dL Normal [facility] Comment on above: Result Comment: The drugs N-Acetylcysteine and Metamizole may falsely depress this assay. Reference Range HDL <40 mg/dL Low HDL Cholesterol HDL >or= 60 mg/dL High HDL Cholesterol Performed By: #### L 506.1001, L501.9520, L501.9910, L502.0250 #### [facility] [address] [place], [address] Cholesterol in LDL [Mass/Vol] 91 mg/dL Normal 0-130 [facility] Comment on above: Performed By: #### L 506.1001, L501.9520, L501.9910, L502.0250 #### [facility] [address] [place], [address] Cholesterol in VLDL [Mass/Vol] 36 mg/dL Normal 5-40 [facility] Comment on above: Performed By: #### L 506.1001, L501.9520, L501.9910, L502.0250 #### [facility] [address] [place], [address] CO2 [Moles/Vol] 29.0 mmol/L Normal 21.0-32.0 [facility] Comment on above: Performed By: #### L 506.1001, L501.9520, L501.9910, L502.0250 #### [facility] [address] [place], [address] Creatinine [Mass/Vol] 0.95 mg/dL Normal 0.70-1.30 [facility] Comment on above: Result Comment: The validity of the calculated GFR GFRAA in patients over 70 years has not been determined. Clinical correlation is essential. Performed By: #### L 506.1001, L501.9520, L501.9910, L502.0250 #### [facility] [address] [place], [address] EST GFR - AA 105 mL/min Normal >60 [facility] Comment on above: Result Comment: Afri can [place] GFR Calc Performed By: #### L 506.1001, L501.9520, L501.9910, L502.0250 #### [facility] [address] [place], [address] GAP 6 Normal 5-15 [facility] Comment on above: Performed By: #### L 506.1001, L501.9520, L501.9910, L502.0250 #### [facility] [address] [place], [address] GFR/1.73 sq M.predicted among non-blacks MDRD (S/P/Bld) [Vol rate/Area] 87 mL/min/{1.73_m2} Normal >60 [facility] Comment on above: Result Comment: Non- GFR Calc Performed By: #### L 506.1001, L501.9520, L501.9910, L502.0250 #### [facility] [address] [place], [address] Globulin (S) [Mass/Vol] 3.3 g/dL Normal 2.2-4.2 [facility] Comment on above: Performed By: #### L 506.1001, L501.9520, L501.9910, L502.0250 #### [facility] [address] [place], [address] Glucose [Mass/Vol] 174 mg/dL High 74-106 [facility] Comment on above: Result Comment: Fast ing Glucose result greater than or equal to 126 mg/dL suggests DIABETES MELLITUS per A.D.A. criteria. Performed By: #### L 506.1001, L501.9520, L501.9910, L502.0250 #### [facility] [address] [place], [address] LDH 196 U/L Normal 87-241 [facility] Comment on above: Performed By: #### L 506.1001, L501.9520, L501.9910, L502.0250 #### [facility] [address] [place], [address] Phosphate [Mass/Vol] 2.5 mg/dL Normal 2.5-4.[address] [facility] Comment on above: Performed By: #### L 506.1001, L501.9520, L501.9910, L502.0250 #### [facility] [address] [place], [address] Potassium [Moles/Vol] 4.2 mmol/L Normal 3.5-5.1 [facility] Comment on above: Performed By: #### L 506.1001, L501.9520, L501.9910, L502.0250 #### [facility] [address] [place], [address] Sodium [Moles/Vol] 139 mmol/L Normal 136-145 [facility] Comment on above: Performed By: #### L 506.1001, L501.9520, L501.9910, L502.0250 #### [facility] [address] [place], [address] T PROT 7.1 g/dL Normal 6.4-8.2 [facility] Comment on above: Performed By: #### L 506.1001, L501.9520, L501.9910, L502.0250 #### [facility] [address] [place], [address] Triglyceride [Mass/Vol] 179 mg/dL Normal [facility] Comment on above: Result Comment: The drugs N-Acetylcysteine and Metamizole may falsely depress this assay. Serum Triglycerides Reference Interval Normal <150 mg/dL Borderline high 150 - 199 mg/dL High 200 - 499 mg/dL Very High > or = 500 mg/dL Performed By: #### L 506.1001, L501.9520, L501.9910, L502.0250 #### [facility] [address] [place], [address] Urea nitrogen [Mass/Vol] 19 mg/dL High 7-18 [facility] Comment on above: Performed By: #### L 506.1001, L501.9520, L501.9910, L502.0250 #### [facility] [address] [place], [address] URIC 6.3 mg/dL Normal 3.5-7.2 [facility] Comment on above: Result Comment: The drugs N-Acetylcysteine and Metamizole may falsely depress this assay. Performed By: #### L 506.1001, L501.9520, L501.9910, L502.0250 #### [facility] [address] [place], [address] Hemoglobin A1con 08-13-2024 HbA1c (Bld) [Mass fraction] 6.6 % High 3.8-5.6 [facility] Comment on above: Result Comment: Norm al < 5.7 % Prediabetic 5.7 - 6.4 % Diabetic >or= 6.5 % Please note range changes. Performed By: #### L 500.4100, L500.4050, L100.0100, L501.9985, L501.9940 #### [facility] [address] [place], [address] Lipid Profileon 08-13-2024 Cholesterol [Mass/Vol] 168 mg/dL Normal 200 [facility] Comment on above: Result Comment: <200 mg/dL Desirable 200-240 mg/dL Borderline >240 mg/dL High Risk Performed By: #### L 500.4100, L500.4050, L100.0100, L501.9985, L501.9940 #### [facility] [address] [place], [address] Cholesterol in HDL [Mass/Vol] 49 mg/dL Normal [facility] Comment on above: Result Comment: The drugs N-Acetylcysteine and Metamizole may falsely depress this assay. Reference Range HDL <40 mg/dL Low HDL Cholesterol HDL >or= 60 mg/dL High HDL Cholesterol Performed By: #### L 500.4100, L500.4050, L100.0100, L501.9985, L501.9940 #### [facility] [address] [place], [address] Cholesterol in LDL [Mass/Vol] 83 mg/dL Normal 0-130 [facility] Comment on above: Performed By: #### L 500.4100, L500.4050, L100.0100, L501.9985, L501.9940 #### [facility] [address] [place], [address] Cholesterol in VLDL [Mass/Vol] 36 mg/dL Normal 5-40 [facility] Comment on above: Performed By: #### L 500.4100, L500.4050, L100.0100, L501.9985, L501.9940 #### [facility] [address] [place], [address] Triglyceride [Mass/Vol] 178 mg/dL Normal [facility] Comment on above: Result Comment: The drugs N-Acetylcysteine and Metamizole may falsely depress this assay. Serum Triglycerides Reference Interval Normal <150 mg/dL Borderline high 150 - 199 mg/dL High 200 - 499 mg/dL Very High > or = 500 mg/dL Performed By: #### L 500.4100, L500.4050, L100.0100, L501.9985, L501.9940 #### [facility] [address] [place], [address] PSA,Total- Diagnosticon 100 PSA, DIAGNOSTIC 0.34 ng/mL Normal 0.0-4.0 [facility] Comment on above: Result Comment: This test was performed using the TPSA assay method for the [employer] chemistry system. Values obtained with different assay methods cannot be used interchangably. When changing PSA assays in the course of monitoring a patient, additional sequential testing should be carried out to confirm baseline values. Performed By: #### L 500.4100, L500.4050, L100.0100, L501.9985, L501.9940 #### [facility] [address] [place], [address] Urinalysis, Employeeon 08-13 BILIRUBIN URINE Negative Normal Negative [facility] Comment on above: Order Comment: CLEAN CATCH Performed By: #### L 506.1001, L501.9520, L501.9910, L502.0250 #### [facility] [address] [place], [address] Clarity (U) Clear Normal Clear [facility] Comment on above: Order Comment: CLEAN CATCH Performed By: #### L 506.1001, L501.9520, L501.9910, L502.0250 #### [facility] [address] [place], [address] Color (U) Yellow Normal Yellow [facility] Comment on above: Order Comment: CLEAN CATCH Performed By: #### L 506.1001, L501.9520, L501.9910, L502.0250 #### [facility] [address] [place], [address] GLUCOSE, UR Normal Normal Normal [facility] Comment on above: Order Comment: CLEAN CATCH Performed By: #### L 506.1001, L501.9520, L501.9910, L502.0250 #### [facility] [address] [place], [address] KETONE UR Negative Normal Negative [facility] Comment on above: Order Comment: CLEAN CATCH Performed By: #### L 506.1001, L501.9520, L501.9910, L502.0250 #### [facility] [address] [place], [address] LEUK ESTERASE Negative Normal Negative [facility] Comment on above: Order Comment: CLEAN CATCH Performed By: #### L 506.1001, L501.9520, L501.9910, L502.0250 #### [facility] [address] [place], [address] Nitrite Ql (U) Negative Normal Negative [facility] Comment on above: Order Comment: CLEAN CATCH Performed By: #### L 506.1001, L501.9520, L501.9910, L502.0250 #### [facility] [address] [place], [address] OCCULT BLOOD-UR Negative Normal Negative [facility] Comment on above: Order Comment: CLEAN CATCH Performed By: #### L 506.1001, L501.9520, L501.9910, L502.0250 #### [facility] [address] [place], [address] pH UR 6.0 Normal 5.0 - 8.0 [facility] Comment on above: Order Comment: CLEAN CATCH Performed By: #### L 506.1001, L501.9520, L501.9910, L502.0250 #### [facility] [address] [place], [address] PROT DIPSTX 15 mg/dl Abnormal Negative [facility] Comment on above: Order Comment: CLEAN CATCH Performed By: #### L 506.1001, L501.9520, L501.9910, L502.0250 #### [facility] [address] [place], [address] SP.GR. DIPSTX 1.020 Normal 1.002-1.030 [facility] Comment on above: Order Comment: CLEAN CATCH Performed By: #### L 506.1001, L501.9520, L501.9910, L502.0250 #### [facility] [address] [place], [address] UROBILI Normal Normal Normal [facility] Comment on above: Order Comment: CLEAN CATCH Performed By: #### L 506.1001, L501.9520, L501.9910, L502.0250 #### [facility] [address] [place], [address] CNPNon 07-30-2024 [facility] Telephone ([facility]) AL GONZALEZ ([id number]) 1965 M Date Time Provider Department 07/30/24 PODLOGARCHARUMON[facility]A During your visit today, we recorded the following information about you: Belle Barber 07/30/2024 10:16 AM Signed Patient has apt 08/15 and requesting a PSA order to be sent to [facility] (because he works there) Please advise Jeff Perry MD 07/31/2024 9:06 AM Signed Orders approved. Shannon Ramirez MA 07/31/2024 9:28 AM Signed Pt notified. Orders faxed to [facility]. Shannon Ramirez MA Allergies As of Date: 07/30/2024 Noted Allergy Reaction NO KNOWN DRUG ALLERGIES 11/15/2005 Date Reviewed: 08/15/2023 Reviewed by: Belle Abdi LPN - Fully Assessed Reason for Visit: Orders [681] Cmt: PSA Primary Visit Diagnosis:Type 2 diabetes mellitus without complication, without long-term current use of insulin (HCC) [E11.9] Other Visit Diagnosis:Screening for prostate cancer [Z12.5] Order(s):LIPID PANEL BASIC [SQLIPB] Order #: [id number] FUTURE PROSTATE-SPECIFIC ANTIGEN DIAGNOSTIC [SQPSA] Order #: [id number] FUTURE COMPREHENSIVE METABOLIC PANEL [SQCMP] Order #: [id number] FUTURE COMPLETE BLOOD COUNT AND DIFFERENTIAL [SQCBCDIF] Order #: [id number] FUTURE HEMOGLOBIN A1C [BREKG2V] Order #: [id number] FUTURE Prescriptions as of 07/31/2024 - losartan [...] Status:Closed by SHANNON RAMIREZ on 07/31/[address] [facility] Basophil percentageOrdered B y: Kike Darius on 12-15-2023 Bilirubin [Mass/Vol] 0.70 mg/dL 0.20-1.[address] [facility] Comment on above: For patients on eltr ombopag therapy, use of Dimension [place] TBIL is not recommended. Chloride [Moles/Vol] 105 mmol/L 98-[address] [facility] Cholesterol [Mass/Vol] 143 mg/dL <200 [facility] Comment on above: <200 mg/dL Desirable 200-240 mg/dL Borderline >240 mg/dL High Risk Glucose [Mass/Vol] 146 mg/dL 74-106 [facility] Comment on above: Fasting Glucose resu lt greater than or equal to 126 mg/dL suggests DIABETES MELLITUS per A.D.A. criteria. Potassium [Moles/Vol] 3.8 mmol/L 3.5-5.1 [facility] Protein [Mass/Vol] 7.2 g/dL 6.4-8.2 [facility] Sodium [Moles/Vol] 137 mmol/L 136-145 [facility] Triglyceride [Mass/Vol] 94 mg/dL <199 [facility] Comment on above: The drugs N-Acetylcy steine and Metamizole may falsely depress this assay.Serum Triglycerides Reference Interval Normal <150 mg/dL Borderline high 150 - 199 mg/dL High 200 - 499 mg/dL Very High > or = 500 mg/dL Laboratory - Chemistry and C hemistry - challengeOrdered By: Kike Mccoy on 12-15-2023 Albumin/Globulin [Mass ratio] 1.3 {ratio} 0.9-2.4 [facility] ALP [Catalytic activity/Vol] 49 U/L 45-117 [facility] ALT [Catalytic activity/Vol] 34 U/L 16-61 [facility] Cholesterol in HDL [Mass/Vol] 49 mg/dL >40 [facility] Comment on above: The drugs N-Acetylcy steine and Metamizole may falsely depress this assay. Reference Range HDL <40 mg/dL Low HDL Cholesterol HDL >or= 60 mg/dL High HDL Cholesterol Cholesterol in LDL [Mass/Vol] 75 mg/dL 0-130 [facility] [facility] CO2 [Moles/Vol] 28.0 mmol/L 21.0-32.0 [facility] Globulin (S) [Mass/Vol] 3.1 g/dL 2.2-4.2 [facility] Urea nitrogen/Creatinine [Mass ratio] 19.1 mg/mg 10-20 [facility] No Panel InformationOrdered By: Kike Mccoy on 12-15-2023 Urine Microalbumin/Creatini ne Ratio 6.8 mg/g CRE <30 [facility] Estimated GFR (MDRD) Amer 113 mL/min >60 [facility] Comment on above: GFR Calc Estimated GFR (MDRD) Non-Af Amer 94 mL/min >60 [facility] Comment on above: Non- GFR Calc VLDL Cholesterol 19 mg/dL 5-40 [facility] Serum or plasma calcium jack urement (mass/volume)Ordered By: Kike Mccoy on 12-15-2023 Calcium [Mass/Vol] 9.1 mg/dL 8.5-10.1 [facility] Serum or plasma creatinine m easurement (mass/volume)Ordered By: Kike Mccoy on 12-15-2023 Creatinine [Mass/Vol] 0.89 mg/dL 0.70-1.30 [facility] Comment on above: The validity of the calculated GFR & GFRAA in patients over 70 years has not been determined. Clinical correlation is essential. Serum or plasma thyroid stim ulating hormone (TSH) measurement (units/volume)Ordered By: Kike Mccoy on 12-15-2023 TSH Qn 1.62 uIU/mL 0.358-3.74 [facility] Serum or plasma urea nitroge n measurement (mass/volume)Ordered By: Kike Mccoy on 12-15-2023 Urea nitrogen [Mass/Vol] 17 mg/dL 7-18 [facility] Thin prep Papanicolaou smear with manual screeningOrdered By: Kike Mccoy on 12-15-2023 Thin prep Papanicolaou smear with manual screening 20.1 mg/L NO RANGE EST. [facility] Thin prep Papanicolaou smear with manual screening 4.1 g/dL 3.2-5.0 [facility] Thin prep Papanicolaou smear with manual screening 16 U/L 15-37 [facility] Thin prep Papanicolaou smear with manual screening 4 5-15 [facility] Urine creatinine measurement (mass/volume)Ordered By: Kike Mccoy on 12-15-2023 Creatinine (U) [Mass/Vol] 297.00 mg/dL NO RANGE EST. [facility] Whole blood hemoglobin A1c/t otal hemoglobin ratio (mass fraction)Ordered By: Kike Mccoy on 12-15-2023 HbA1c (Bld) [Mass fraction] 7.0 % 3.8-5.6 [facility] Comment on above: Normal < 5.7 % Predi abetic 5.7 - 6.4 % Diabetic >or= 6.5 % Please note range changes. Whole blood hemoglobin A1c/t otal hemoglobin ratio (mass fraction)Ordered By: Kike Mccoy on 04-13-2023 HbA1c (Bld) [Mass fraction] 6.8 % 3.8-5.6 [facility] Comment on above: Normal < 5.7 % Predi abetic 5.7 - 6.4 % Diabetic >or= 6.5 % Please note range changes. Absolute lymphocyte counton 10-24-2022 Lymphocytes Auto (Unsp spec) [#/Vol] 2.30 10*3/uL 0.83-4.51 [facility] Work Phone: Basophil percentageon 2021 Basophils/100 WBC (Bld) 0.6 % 0-1 [facility] Work Phone: Chloride [Moles/Vol] 105 mmol/L 98-[address] [facility] Work Phone: Eosinophils/100 WBC (Bld) 7.0 % 0-5 [facility] Work Phone: Glucose [Mass/Vol] 157 mg/dL 74-106 [facility] Work Phone: Comment on above: Fasting Glucose resu lt greater than or equal to 126 mg/dL suggests DIABETES MELLITUS per A.D.A. criteria. Neutrophils (Bld) [#/Vol] 3.4 10*3/uL 2.0-7.7 [facility] Work Phone: Neutrophils/100 WBC (Bld) 50.2 % 47-70 [facility] Work Phone: Potassium [Moles/Vol] 3.9 mmol/L 3.5-5.1 [facility] Work Phone: Sodium [Moles/Vol] 139 mmol/L 136-145 [facility] Work Phone: WBC (Bld) [#/Vol] 6.8 10*3/uL 4.4-11.0 [facility] Work Phone: Blood erythrocytes count (nu mber/volume)on 10-24-2022 RBC (Bld) [#/Vol] 4.66 10*6/uL 4.6-6.2 [facility] Work Phone: Blood hemoglobin measurement (mass/volume)on 10-24-2022 Hemoglobin (Bld) [Mass/Vol] 14.3 g/dL 13.0-16.5 [facility] Work Phone: Blood lymphocytes/100 leukoc yteson 10-24-2022 Lymphocytes/100 WBC (Bld) 33.7 % 19-41 [facility] Work Phone: Blood monocytes/100 leukocyt eson 10-24-2022 Monocytes/100 WBC (Bld) 8.2 % 0-10 [facility] Work Phone: Blood platelet mean volumeon 10-24-2022 Platelet mean volume (Bld) [Entitic vol] 8.9 fL 6.2-12.0 [facility] Work Phone: Determination of erythrocyte mean corpuscular volume (MCV)on 10-24-2022 MCV (RBC) [Entitic vol] 90.1 fL 80-94 [facility] Work Phone: Hematocrit Auto (Bld) [Volum e fraction]on 10-24-2022 Hematocrit (Bld) [Volume fraction] 42.0 % 40-54 [facility] Work Phone: Laboratory - Chemistry and C hemistry - challengeon 10-24-2022 CO2 [Moles/Vol] 28.0 mmol/L 21.0-32.0 [facility] Work Phone: Magnesium [Mass/Vol] 2.2 mg/dL 1.6-2.[address] [facility] Work Phone: Urea nitrogen/Creatinine [Mass ratio] 23.8 mg/mg 10-20 [facility] Work Phone: Laboratory - Hematology and Cell countson 10-24-2022 Erythrocyte distribution width (RBC) [Entitic vol] 42.5 fL 35.1-43.9 [facility] Work Phone: Erythrocyte distribution width (RBC) [Ratio] 12.9 % 11.6-14.6 [facility] Work Phone: Immature granulocytes/100 WBC (Bld) 0.300 % 0.0-0.9 [facility] Work Phone: Comment on above: IG% - Immature Granu locytes (promyelocytes, myelocytes and metamyelocytes) > 1% indicates that a LEFT SHIFT is Present. MCH (RBC) [Entitic mass] 30.7 pg 27.0-32.0 [facility] Work Phone: Nucleated RBC/100 WBC (Bld) [Ratio] 0 % 0-5 [facility] Work Phone: MCHC Auto (RBC) [Mass/Vol]on 10-24-2022 MCHC (RBC) [Mass/Vol] 34.0 g/dL 32-36 [facility] Work Phone: No Panel Informationon 10-24 Estimated Creatinine Clearance Calc 96.63 ml/min [facility] Work Phone: Estimated GFR (MDRD) Amer 109 mL/min >60 [facility] Work Phone: Comment on above: GFR Calc Estimated GFR (MDRD) Non-Af Amer 90 mL/min >60 [facility] Work Phone: Comment on above: Non- GFR Calc Platelets bldon 10-24-2022 Platelets (Bld) [#/Vol] 324 10*3/uL 150-450 [facility] Work Phone: Serum or plasma calcium jack urement (mass/volume)on 10-24-2022 Calcium [Mass/Vol] 9.0 mg/dL 8.5-10.1 [facility] Work Phone: Serum or plasma creatinine m easurement (mass/volume)on 10-24-2022 Creatinine [Mass/Vol] 0.92 mg/dL 0.70-1.30 [facility] Work Phone: Comment on above: The validity of the calculated GFR & GFRAA in patients over 70 years has not been determined. Clinical correlation is essential. Serum or plasma urea nitroge n measurement (mass/volume)on 10-24-2022 Urea nitrogen [Mass/Vol] 22 mg/dL - [facility] Work Phone: Thin prep Papanicolaou smear with manual screeningon 10-24-2022 Thin prep Papanicolaou smear with manual screening 6 5-15 [facility] Work Phone: Basophil percentageon 2021 Bilirubin [Mass/Vol] 0.50 mg/dL 0.20-1.[address] [facility] Work Phone: Comment on above: For patients on eltr ombopag therapy, use of Dimension [place] TBIL is not recommended. Protein [Mass/Vol] 6.7 g/dL 6.4-8.2 [facility] Work Phone: Glucose Glucometer (BldC) [M ass/Vol]on 10-23-2022 Glucose [Mass/Vol] 232 mg/dL 74-106 [facility] Work Phone: Comment on above: MANAGEMENT OF PATIEN T CARE PER NURSING PROTOCOL Laboratory - Chemistry and C hemistry - challengeon 10-23-2022 ALP [Catalytic activity/Vol] 53 U/L 45-117 [facility] Work Phone: ALT [Catalytic activity/Vol] 29 U/L 16-61 [facility] Work Phone: Globulin (S) [Mass/Vol] 3.3 g/dL 2.2-4.2 [facility] Work Phone: No Panel Informationon 10-23 Thyroid Stimulating Hormone (TSH) 1.67 uIU/mL 0.358-3.74 [facility] Work Phone: Troponin I High Sensitivity 30 pg/mL 3.0-78.0 [facility] Work Phone: Comment on above: Please Note: New July t Units and Gender Specific Reference Ranges. For more information see Policy Stat Procedure [place] High Sensitivity Troponin (TNIH) and attachments. Serum or plasma albumin jack urement (mass/volume)on 10-23-2022 Albumin [Mass/Vol] 3.4 g/dL 3.2-5.0 [facility] Work Phone: Serum or plasma albumin/glob ulin mass ratioon 10-23-2022 Albumin/Globulin [Mass ratio] 1.0 {ratio} 0.9-2.4 [facility] Work Phone: Thin prep Papanicolaou smear with manual screeningon 10-23-2022 Thin prep Papanicolaou smear with manual screening 11 U/L 15-37 [facility] Work Phone: Absolute lymphocyte counton 10-22-2022 Lymphocytes Auto (Unsp spec) [#/Vol] 2.50 10*3/uL 0.83-4.51 [facility] Work Phone: Basophil percentageon 2021 Basophils/100 WBC (Bld) 0.9 % 0-1 [facility] Work Phone: Chloride [Moles/Vol] 103 mmol/L 98-107 [facility]: Eosinophils/100 WBC (Bld) 6.3 % 0-5 [facility] Work Phone: Glucose [Mass/Vol] 317 mg/dL 74-106 [facility] Work Phone: Comment on above: Glucose result great er than or equal to 200 mg/dLsuggests DIABETES MELLITUS per A.D.A. criteria. Neutrophils (Bld) [#/Vol] 3.1 10*3/uL 2.0-7.7 [facility] Work Phone: Neutrophils/100 WBC (Bld) 45.7 % 47-70 [facility] Work Phone: Potassium [Moles/Vol] 3.8 mmol/L 3.5-5.1 [facility] Work Phone: Comment on above: Moderate Hemolysis, Result may be falsely increased. Sodium [Moles/Vol] 137 mmol/L 136-145 [facility] Work Phone: WBC (Bld) [#/Vol] 6.8 10*3/uL 4.4-11.0 [facility] Work Phone: Blood erythrocytes count (nu mber/volume)on 10-22-2022 RBC (Bld) [#/Vol] 4.84 10*6/uL 4.6-6.[address] [facility] Work Phone: Blood hemoglobin measurement (mass/volume)on 10-22-2022 Hemoglobin (Bld) [Mass/Vol] 15.3 g/dL 13.0-16.5 [facility] Work Phone: Blood lymphocytes/100 leukoc yteson 10-22-2022 Lymphocytes/100 WBC (Bld) 36.7 % 19-41 [facility] Work Phone: Blood monocytes/100 leukocyt eson 10-22-2022 Monocytes/100 WBC (Bld) 10.3 % 0-10 [facility] Work Phone: Blood platelet mean volumeon 10-22-2022 Platelet mean volume (Bld) [Entitic vol] 8.8 fL 6.2-12.0 [facility] Work Phone: Determination of erythrocyte mean corpuscular volume (MCV)on 10-22-2022 MCV (RBC) [Entitic vol] 89.5 fL 80-94 [facility] Work Phone: Hematocrit Auto (Bld) [Volum e fraction]on 10-22-2022 Hematocrit (Bld) [Volume fraction] 43.3 % 40-54 [facility] Work Phone: INR in Blood by Coagulation assayon 10-22-2022 INR Coag (Bld) [Relative time] 1.0 {INR} [facility] Work Phone: Laboratory - Chemistry and C hemistry - challengeon 10-22-2022 CO2 [Moles/Vol] 28.0 mmol/L 21.0-32.0 [facility] Work Phone: Urea nitrogen/Creatinine [Mass ratio] 21.7 mg/mg 10-20 [facility] Work Phone: Laboratory - Coagulationon 12-23-2021 aPTT Coag (Bld) [Time] 25.3 s 24.1-36.2 [facility] Work Phone: PT Coag (PPP) [Time] 12.7 s 11.7-14.[address] [facility] Work Phone: Laboratory - Hematology and Cell countson 10-22-2022 Erythrocyte distribution width (RBC) [Entitic vol] 41.9 fL 35.1-43.9 [facility] Work Phone: Erythrocyte distribution width (RBC) [Ratio] 12.8 % 11.6-14.6 [facility] Work Phone: Immature granulocytes/100 WBC (Bld) 0.100 % 0.0-0.9 [facility] Work Phone: Comment on above: IG% - Immature Granu locytes (promyelocytes, myelocytes and metamyelocytes) > 1% indicates that a LEFT SHIFT is Present. MCH (RBC) [Entitic mass] 31.6 pg 27.0-32.0 [facility] Work Phone: Nucleated RBC/100 WBC (Bld) [Ratio] 0 % 0-5 [facility] Work Phone: MCHC Auto (RBC) [Mass/Vol]on 10-22-2022 MCHC (RBC) [Mass/Vol] 35.3 g/dL 32-36 [facility] Work Phone: No Panel Informationon 10-22 Estimated Creatinine Clearance Calc 83.86 ml/min [facility] Work Phone: Estimated GFR (MDRD) Amer 93 mL/min >60 [facility] Work Phone: Comment on above: GFR Calc Estimated GFR (MDRD) Non-Af Amer 77 mL/min >60 [facility] Work Phone: Comment on above: Non- GFR Calc Thyroid Stimulating Hormone (TSH) 2.12 uIU/mL 0.358-3.74 [facility] Work Phone: Platelets bldon 10-22-2022 Platelets (Bld) [#/Vol] 307 10*3/uL 150-450 [facility] Work Phone: Serum or plasma calcium jack urement (mass/volume)on 10-22-2022 Calcium [Mass/Vol] 9.4 mg/dL 8.5-10.1 [facility] Work Phone: Serum or plasma creatinine m easurement (mass/volume)on 10-22-2022 Creatinine [Mass/Vol] 1.06 mg/dL 0.70-1.30 [facility] Work Phone: Comment on above: The validity of the calculated GFR & GFRAA in patients over 70 years has not been determined. Clinical correlation is essential. Serum or plasma urea nitroge n measurement (mass/volume)on 10-22-2022 Urea nitrogen [Mass/Vol] 23 mg/dL 7-18 [facility] Work Phone: Thin prep Papanicolaou smear with manual screeningon 10-22-2022 Thin prep Papanicolaou smear with manual screening 6 -15 [facility] Work Phone: Absolute lymphocyte counton 08-05-2022 Lymphocytes Auto (Unsp spec) [#/Vol] 1.39 10*3/uL 0.83-4.51 [facility] Work Phone: Absolute reticulocyte counto n 08-05-2022 Reticulocytes (Bld) [#/Vol] 0.00 10*3/uL 0-5 [facility] Work Phone: Basophil percentageon 2021 Basophil percentage 3.2 mg/dL 2.5-4.9 [facility] Work Phone: Bilirubin [Mass/Vol] 0.60 mg/dL 0.20-1.[address] [facility] Work Phone: Comment on above: For patients on eltr ombopag therapy, use of Dimension [place] TBIL is not recommended. Chloride [Moles/Vol] 109 mmol/L 98-[address] [facility] Work Phone: Cholesterol [Mass/Vol] 120 mg/dL <200 [facility] Work Phone: Comment on above: <200 mg/dL Desirable 200-240 mg/dL Borderline >240 mg/dL High Risk Glucose [Mass/Vol] 137 mg/dL 74-106 [facility] Work Phone: Comment on above: Fasting Glucose resu lt greater than or equal to 126 mg/dL suggests DIABETES MELLITUS per A.D.A. criteria. Neutrophils (Bld) [#/Vol] 2.4 10*3/uL 2.0-7.7 [facility] Work Phone: Potassium [Moles/Vol] 4.1 mmol/L 3.5-5.1 [facility] Work Phone: Protein [Mass/Vol] 6.8 g/dL 6.4-8.2 [facility] Work Phone: Sodium [Moles/Vol] 143 mmol/L 136-145 [facility] Work Phone: Triglyceride [Mass/Vol] 75 mg/dL <199 [facility] Work Phone: Comment on above: The drugs N-Acetylcy steine and Metamizole may falsely depress this assay.Serum Triglycerides Reference Interval Normal <150 mg/dL Borderline high 150 - 199 mg/dL High 200 - 499 mg/dL Very High > or = 500 mg/dL WBC (Bld) [#/Vol] 4.7 10*3/uL 4.4-11.0 [facility] Work Phone: Blood erythrocytes count (nu mber/volume)on 08-05-2022 RBC (Bld) [#/Vol] 4.32 10*6/uL 4.6-6.2 [facility] Work Phone: Blood hemoglobin measurement (mass/volume)on 08-05-2022 Hemoglobin (Bld) [Mass/Vol] 13.3 g/dL 13.0-16.5 [facility] Work Phone: Blood platelet mean volumeon 08-05-2022 Platelet mean volume (Bld) [Entitic vol] 9.2 fL 6.2-12.0 [facility] Work Phone: Determination of erythrocyte mean corpuscular volume (MCV)on 08-05-2022 MCV (RBC) [Entitic vol] 89.1 fL 80-94 [facility] Work Phone: Direct bilirubinon Bilirubin.direct [Mass/Vol] 0.20 mg/dL 0.00-0.30 [facility] Work Phone: Hematocrit Auto (Bld) [Volum e fraction]on 08-05-2022 Hematocrit (Bld) [Volume fraction] 38.5 % 40-54 [facility] Work Phone: Laboratory - Chemistry and C hemistry - challengeon 08-05-2022 ALP [Catalytic activity/Vol] 44 U/L 45-117 [facility] Work Phone: ALT [Catalytic activity/Vol] 28 U/L 16-61 [facility] Work Phone: Cholesterol.total/Cho lesterol in HDL [Mass ratio] 2.60 {ratio} [facility] Work Phone: CO2 [Moles/Vol] 27.0 mmol/L 21.0-32.0 [facility] Work Phone: Globulin (S) [Mass/Vol] 3.1 g/dL 2.2-4.2 [facility] Work Phone: Urea nitrogen/Creatinine [Mass ratio] 27.2 mg/mg 10-20 [facility] Work Phone: Laboratory - Hematology and Cell countson 08-05-2022 Erythrocyte distribution width (RBC) [Entitic vol] 42.0 fL 35.1-43.9 [facility] Work Phone: Erythrocyte distribution width (RBC) [Ratio] 12.8 % 11.6-14.6 [facility] Work Phone: MCH (RBC) [Entitic mass] 30.8 pg 27.0-32.0 [facility] Work Phone: Nucleated RBC/100 WBC (Bld) [Ratio] 0 % 0-5 [facility] Work Phone: MCHC Auto (RBC) [Mass/Vol]on 08-05-2022 MCHC (RBC) [Mass/Vol] 34.5 g/dL 32-36 [facility] Work Phone: No Panel Informationon 08-05 Prostate Specific Antigen Screen 0.35 ng/mL 0.00-4.00 [facility] Work Phone: Comment on above: This test was perfor med using the TPSA assay method for [employer] chemistry system. Values obtained with differentassay methods cannot be used interchangably.When changing PSA assays in the course of monitoring apatient, additional sequential testing should be carriedout to confirm baseline values. Thyroid Stimulating Hormone (TSH) 1.26 uIU/mL 0.358-3.74 [facility] Work Phone: Vitamin D 25-Hydroxy 26.1 ng/mL [facility] Work Phone: Comment on above: Vitamin D 25(OH) Sta tus Range Deficiency <20 ng/mL (50nmol/L) Insufficiency 20 - 30 ng/mL (50 - 75 nmol/L) Sufficiency 30 - 100 ng/mL (75 - 250 nmol/L) Toxicity >100 ng/mL (>250 nmol/L) Estimated GFR (MDRD) Amer 121 mL/min >60 [facility] Work Phone: Comment on above: GFR Calc Estimated GFR (MDRD) Non-Af Amer 100 mL/min >60 [facility] Work Phone: Comment on above: Non- GFR Calc Platelets bldon 08-05-2022 Platelets (Bld) [#/Vol] 261 10*3/uL 150-450 [facility] Work Phone: Segmented neutrophils/100 WB C Auto (Bld)on 08-05-2022 Segmented neutrophils/100 WBC (Bld) 51.2 % 47-70 [facility] Work Phone: Serum or plasma albumin jack urement (mass/volume)on 08-05-2022 Albumin [Mass/Vol] 3.7 g/dL 3.2-5.0 [facility] Work Phone: Serum or plasma albumin/glob ulin mass ratioon 08-05-2022 Albumin/Globulin [Mass ratio] 1.2 {ratio} 0.9-2.4 [facility] Work Phone: Serum or plasma calcium jack urement (mass/volume)on 08-05-2022 Calcium [Mass/Vol] 9.0 mg/dL 8.5-10.1 [facility] Work Phone: Serum or plasma cholesterol in HDL measurement (mass/volume)on 08-05-2022 Cholesterol in HDL [Mass/Vol] 47 mg/dL >40 [facility] Work Phone: Comment on above: The drugs N-Acetylcy steine and Metamizole may falsely depress this assay. Reference Range HDL <40 mg/dL Low HDL Cholesterol HDL >or= 60 mg/dL High HDL Cholesterol Serum or plasma cholesterol in VLDL measurement (mass/volume)on 08-05-2022 Cholesterol in VLDL [Mass/Vol] 15 mg/dL 5-40 [facility] Work Phone: Serum or plasma creatinine m easurement (mass/volume)on 08-05-2022 Creatinine [Mass/Vol] 0.85 mg/dL 0.70-1.30 [facility] Work Phone: Comment on above: The validity of the calculated GFR & GFRAA in patients over 70 years has not been determined. Clinical correlation is essential. Serum or plasma low density lipoprotein (LDL) cholesterol measurement (mass/volume)on 08-05-2022 Cholesterol in LDL [Mass/Vol] 58 mg/dL 0-130 [facility] Work Phone: Serum or plasma urea nitroge n measurement (mass/volume)on 08-05-2022 Urea nitrogen [Mass/Vol] 23 mg/dL 7-18 [facility] Work Phone: Serum or plasma uric acid me asurement (mass/volume)on 08-05-2022 Urate [Mass/Vol] 4.8 mg/dL 3.5-7.2 [facility] Work Phone: Comment on above: The drugs N-Acetylcy steine and Metamizole may falsely depress this assay. Thin prep Papanicolaou smear with manual screeningon 08-05-2022 Thin prep Papanicolaou smear with manual screening 11 U/L 15-37 [facility] Work Phone: Thin prep Papanicolaou smear with manual screening 7 5-15 [facility] Work Phone: Thin prep Papanicolaou smear with manual screening 166 U/L 87-241 [facility] Work Phone: Whole blood hemoglobin A1c/t otal hemoglobin ratio (mass fraction)on 08-05-2022 HbA1c (Bld) [Mass fraction] 6.7 % 3.8-5.6 [facility] Work Phone: Comment on above: Normal < 5.7 % Predi abetic 5.7 - 6.4 % Diabetic >or= 6.5 % Please note range changes. Basophil percentageon 2021 Bilirubin [Mass/Vol] 0.50 mg/dL 0.20-1.[address] [facility] Work Phone: Comment on above: For patients on eltr ombopag therapy, use of Dimension [place] TBIL is not recommended. Chloride [Moles/Vol] 103 mmol/L 98-[address] [facility] Work Phone: Cholesterol [Mass/Vol] 126 mg/dL <200 [facility] Work Phone: Comment on above: <200 mg/dL Desirable 200-240 mg/dL Borderline >240 mg/dL High Risk Glucose [Mass/Vol] 136 mg/dL 74-106 [facility] Work Phone: Comment on above: Fasting Glucose resu lt greater than or equal to 126 mg/dL suggests DIABETES MELLITUS per A.D.A. criteria. Potassium [Moles/Vol] 4.2 mmol/L 3.5-5.1 [facility] Work Phone: Protein [Mass/Vol] 7.1 g/dL 6.4-8.2 [facility] Work Phone: Sodium [Moles/Vol] 140 mmol/L 136-145 [facility] Work Phone: Triglyceride [Mass/Vol] 130 mg/dL [facility] Work Phone: Comment on above: The drugs N-Acetylcy steine and Metamizole may falsely depress this assay.Serum Triglycerides Reference Interval Normal <150 mg/dL Borderline high 150 - 199 mg/dL High 200 - 499 mg/dL Very High > or = 500 mg/dL Laboratory - Chemistry and C hemistry - challengeon 03-03-2022 ALP [Catalytic activity/Vol] 47 U/L 45-117 [facility] Work Phone: ALT [Catalytic activity/Vol] 32 U/L 16-61 [facility] Work Phone: CO2 [Moles/Vol] 30.0 mmol/L 21.0-32.0 [facility] Work Phone: Globulin (S) [Mass/Vol] 3.0 g/dL 2.2-4.2 [facility] Work Phone: Magnesium [Mass/Vol] 2.0 mg/dL 1.6-2.[address] [facility] Work Phone: Urea nitrogen/Creatinine [Mass ratio] 21.1 mg/mg 10-20 [facility] Work Phone: No Panel Informationon 03-03 Estimated GFR (MDRD) Amer 100 mL/min >60 [facility] Work Phone: Comment on above: GFR Calc Estimated GFR (MDRD) Non-Af Amer 83 mL/min >60 [facility] Work Phone: Comment on above: Non- GFR Calc Serum or plasma albumin jack urement (mass/volume)on 03-03-2022 Albumin [Mass/Vol] 4.1 g/dL 3.2-5.0 [facility] Work Phone: Serum or plasma albumin/glob ulin mass ratioon 03-03-2022 Albumin/Globulin [Mass ratio] 1.4 {ratio} 0.9-2.4 [facility] Work Phone: Serum or plasma calcium jack urement (mass/volume)on 03-03-2022 Calcium [Mass/Vol] 8.8 mg/dL 8.5-10.1 [facility] Work Phone: Serum or plasma cholesterol in HDL measurement (mass/volume)on 03-03-2022 Cholesterol in HDL [Mass/Vol] 40 mg/dL [facility] Work Phone: Comment on above: The drugs N-Acetylcy steine and Metamizole may falsely depress this assay. Reference Range HDL <40 mg/dL Low HDL Cholesterol HDL >or= 60 mg/dL High HDL Cholesterol Serum or plasma cholesterol in VLDL measurement (mass/volume)on 03-03-2022 Cholesterol in VLDL [Mass/Vol] 26 mg/dL 5-40 [facility] Work Phone: Serum or plasma creatinine m easurement (mass/volume)on 03-03-2022 Creatinine [Mass/Vol] 1.00 mg/dL 0.70-1.30 [facility] Work Phone: Comment on above: The validity of the calculated GFR & GFRAA in patients over 70 years has not been determined. Clinical correlation is essential. Serum or plasma low density lipoprotein (LDL) cholesterol measurement (mass/volume)on 03-03-2022 Cholesterol in LDL [Mass/Vol] 60 mg/dL 0-130 [facility] Work Phone: Serum or plasma urea nitroge n measurement (mass/volume)on 03-03-2022 Urea nitrogen [Mass/Vol] 21 mg/dL 7-18 [facility] Work Phone: Thin prep Papanicolaou smear with manual screeningon 03-03-2022 Thin prep Papanicolaou smear with manual screening 16 U/L 15-37 [facility] Work Phone: Thin prep Papanicolaou smear with manual screening 7 5-15 [facility] Work Phone: Whole blood hemoglobin A1c/t otal hemoglobin ratio (mass fraction)on 03-03-2022 HbA1c (Bld) [Mass fraction] 6.0 % 3.8-5.6 [facility] Work Phone: Comment on above: Normal < 5.7 % Predi abetic 5.7 - 6.4 % Diabetic >or= 6.5 % Please note range changes. Basophil percentageon 2021 Bilirubin [Mass/Vol] 0.80 mg/dL 0.20-1.[address] [facility] Work Phone: Comment on above: For patients on eltr ombopag therapy, use of Dimension [place] TBIL is not recommended. Chloride [Moles/Vol] 102 mmol/L 98-[address] [facility] Work Phone: Cholesterol [Mass/Vol] 130 mg/dL <200 [facility] Work Phone: Comment on above: <200 mg/dL Desirable 200-240 mg/dL Borderline >240 mg/dL High Risk Glucose [Mass/Vol] 154 mg/dL 74-106 [facility] Work Phone: Comment on above: Fasting Glucose resu lt greater than or equal to 126 mg/dL suggests DIABETES MELLITUS per A.D.A. criteria. Potassium [Moles/Vol] 3.9 mmol/L 3.5-5.1 [facility] Work Phone: Protein [Mass/Vol] 7.1 g/dL 6.4-8.2 [facility] Work Phone: Sodium [Moles/Vol] 137 mmol/L 136-145 [facility] Work Phone: Triglyceride [Mass/Vol] 211 mg/dL [facility] Work Phone: Comment on above: The drugs N-Acetylcy steine and Metamizole may falsely depress this assay.Serum Triglycerides Reference Interval Normal <150 mg/dL Borderline high 150 - 199 mg/dL High 200 - 499 mg/dL Very High > or = 500 mg/dL Laboratory - Chemistry and C hemistry - challengeon 12-03-2021 ALP [Catalytic activity/Vol] 55 U/L 45-117 [facility] Work Phone: ALT [Catalytic activity/Vol] 32 U/L 16-61 [facility] Work Phone: CO2 [Moles/Vol] 30.0 mmol/L 21.0-32.0 [facility] Work Phone: Globulin (S) [Mass/Vol] 3.3 g/dL 2.2-4.2 [facility] Work Phone: Magnesium [Mass/Vol] 1.9 mg/dL 1.6-2.[address] [facility] Work Phone: Urea nitrogen/Creatinine [Mass ratio] 14.5 mg/mg 10-20 [facility] Work Phone: No Panel Informationon 12-03 Estimated GFR (MDRD) Amer 113 mL/min >60 [facility] Work Phone: Comment on above: GFR Calc Estimated GFR (MDRD) Non-Af Amer 94 mL/min >60 [facility] Work Phone: Comment on above: Non- GFR Calc Serum or plasma albumin jack urement (mass/volume)on 12-03-2021 Albumin [Mass/Vol] 3.8 g/dL 3.2-5.0 [facility] Work Phone: Serum or plasma albumin/glob ulin mass ratioon 12-03-2021 Albumin/Globulin [Mass ratio] 1.2 {ratio} 0.9-2.4 [facility] Work Phone: Serum or plasma calcium jack urement (mass/volume)on 12-03-2021 Calcium [Mass/Vol] 8.7 mg/dL 8.5-10.1 [facility] Work Phone: Serum or plasma cholesterol in HDL measurement (mass/volume)on 12-03-2021 Cholesterol in HDL [Mass/Vol] 41 mg/dL [facility] Work Phone: Comment on above: The drugs N-Acetylcy steine and Metamizole may falsely depress this assay. Reference Range HDL <40 mg/dL Low HDL Cholesterol HDL >or= 60 mg/dL High HDL Cholesterol Serum or plasma cholesterol in VLDL measurement (mass/volume)on 12-03-2021 Cholesterol in VLDL [Mass/Vol] 42 mg/dL 5-40 [facility] Work Phone: Serum or plasma creatinine m easurement (mass/volume)on 12-03-2021 Creatinine [Mass/Vol] 0.90 mg/dL 0.70-1.30 [facility] Work Phone: Comment on above: The validity of the calculated GFR & GFRAA in patients over 70 years has not been determined. Clinical correlation is essential. Serum or plasma low density lipoprotein (LDL) cholesterol measurement (mass/volume)on 12-03-2021 Cholesterol in LDL [Mass/Vol] 47 mg/dL 0-130 [facility] Work Phone: Serum or plasma urea nitroge n measurement (mass/volume)on 12-03-2021 Urea nitrogen [Mass/Vol] 13 mg/dL 7-18 [facility] Work Phone: Thin prep Papanicolaou smear with manual screeningon 12-03-2021 Thin prep Papanicolaou smear with manual screening 16 U/L 15-37 [facility] Work Phone: Thin prep Papanicolaou smear with manual screening 5 5-15 [facility] Work Phone: Whole blood hemoglobin A1c/t otal hemoglobin ratio (mass fraction)on 12-03-2021 HbA1c (Bld) [Mass fraction] 7.6 % 3.8-5.6 [facility] Work Phone: Comment on above: Normal < 5.7 % Predi abetic 5.7 - 6.4 % Diabetic >or= 6.5 % Please note range changes. Laboratory - Microbiology an d Antimicrobial susceptibilityon 11-11-2021 SARS-CoV-2 (COVID-19) RNA TY+probe Ql (Unsp spec) Not detected Not Detect [facility] Work Phone: Comment on above: Normal Reference [...] current medications (procedure) Done Invalid Interpretation Code [facility] Work Phone: Protein mass conc Done [facility] Work Phone: Tobacco smoking status NHIS Never smoker [facility] Work Phone: Tobacco use [facility] Never smoker Invalid Interpretation Code [facility] Work Phone: Office Visit: GILBERT: Yanira emanuel.on 04-18-2017 Documentation of current medications (procedure) Done Invalid Interpretation Code [facility] Work Phone: Fall risk assessment No Invalid Interpretation Code [facility] Work Phone: Tobacco use HS Never smoker Invalid Interpretation Code [facility] Work Phone: Vital Signs Date Time Vital Sign Value Performing Clinician Matt ann 07-23-2025 12:43-0400 Body mass index (BMI) [Ratio] 34.22 kg/m2 Jabier Giron APRN.CNP Work Phone: [facility] 07-23-2025 12:43-0400 Body weight 106 kg Jabier Giron APRN.DATA PROCESSING EQUIPMENT REPAIRER Work Phone: [facility] 07-23-2025 12:43-0400 Diastolic blood pressure 77 mm[Hg] Jabier Giron APRN.DATA PROCESSING EQUIPMENT REPAIRER Work Phone: [facility] 07-23-2025 12:43-0400 Heart rate 66 /min Jabier Giron APRN.CNP Work Phone: [facility] 07-23-2025 12:43-0400 Systolic blood pressure 120 mm[Hg] Jabier Giron APRN.DATA PROCESSING EQUIPMENT REPAIRER Work Phone: [facility] 07-17-2025 14:07-0400 Body height 177.[address] Zach Perry MD Work Phone: 8(602)717-977969 [place] [address] 07-17-2025 14:07-0400 Body mass index (BMI) [Ratio] 33.7 kg/m2 Dr. Zach Perry MD Work Phone: 8(608)399-659769 [place] [address] 07-17-2025 14:07-0400 Body weight 106.[address] Zach Perry MD Work Phone: 9(661)290-114669 [place] [address] 07-17-2025 14:07-0400 Diastolic blood pressure 81 mm[Hg] Dr. Zach Perry MD Work Phone: 0(307)872-100669 [place] [address] 07-17-2025 14:07-0400 Heart rate 85 /min Dr. Zach Perry MD Work Phone: 5(669)196-846769 [place] [address] 07-17-2025 14:07-0400 SaO2% (BldA) [Mass fraction] 93 % Dr. Zach Perry MD Work Phone: 3(219)224-703569 [place] [address] 07-17-2025 14:07-0400 Systolic blood pressure 126 mm[Hg] Dr. Zach Perry MD Work Phone: 4(021)065-023069 [place] [address] 06-12-2025 15:32-0400 Body height 177.[address] Zach Perry MD Work Phone: 6(329)757-663669 [place] [address] 06-12-2025 15:32-0400 Body mass index (BMI) [Ratio] 33.9 kg/m2 Dr. Zach Perry MD Work Phone: 9(301)898-874569 [place] [address] 06-12-2025 15:32-0400 Body weight 107.[address] Zach Perry MD Work Phone: 0(085)752-321069 [place] [address] 04-16-2025 15:21-0400 Body height 177.[address] Zach Perry MD Work Phone: 6(888)819-490969 [place] [address] 04-16-2025 15:21-0400 Body mass index (BMI) [Ratio] 34.7 kg/m2 Dr. Zach Perry MD Work Phone: 0(220)893-967447 [place] [address] 04-16-2025 15:21-0400 Body weight 109.[address] Zach Perry MD Work Phone: 6(646)514-588247 [place] [address] 04-16-2025 15:21-0400 Diastolic blood pressure 83 mm[Hg] Dr. Zach Perry MD Work Phone: 8(757)974-871769 [place] [address] 04-16-2025 15:21-0400 Heart rate 85 /min Dr. Zach Perry MD Work Phone: 5(004)620-488869 [place] [address] 04-16-2025 15:21-0400 SaO2% (BldA) [Mass fraction] 93 % Dr. Zach Perry MD Work Phone: 4(752)763-564369 [place] [address] 04-16-2025 15:21-0400 Systolic blood pressure 144 mm[Hg] Dr. Zach Perry MD Work Phone: 8(857)535-592647 [place] [address] 08-15-2024 16:40-0400 Body mass index (BMI) [Ratio] 35.35 kg/m2 Charu Podlogar ENGRAVING SUPERVISOR.DATA PROCESSING EQUIPMENT REPAIRER Work Phone: [facility] 08-15-2024 16:40-0400 Body weight 109.5 kg Charu Podlogar ENGRAVING SUPERVISOR.DATA PROCESSING EQUIPMENT REPAIRER Work Phone: [facility] 08-15-2024 16:40-0400 Diastolic blood pressure 84 mm[Hg] Charu Podlogar ENGRAVING SUPERVISOR.DATA PROCESSING EQUIPMENT REPAIRER Work Phone: [facility] 08-15-2024 16:40-0400 Heart rate 81 /min Charu Podlogar ENGRAVING SUPERVISOR.DATA PROCESSING EQUIPMENT REPAIRER Work Phone: [facility] 08-15-2024 16:40-0400 Respiratory rate 18 /min Charu Podlogar ENGRAVING SUPERVISOR.DATA PROCESSING EQUIPMENT REPAIRER Work Phone: [facility] 08-15-2024 16:40-0400 SaO2% (BldA) [Mass fraction] 94 % Charu Podlogar ENGRAVING SUPERVISOR.DATA PROCESSING EQUIPMENT REPAIRER Work Phone: [facility] 08-15-2024 16:40-0400 Systolic blood pressure 132 mm[Hg] Charu Pérez APRN.DATA PROCESSING EQUIPMENT REPAIRER Work Phone: [facility] 08-15-2023 14:40-0400 Body weight 112.31 kg Jeff Perry MD Work Phone: [facility] 08-15-2023 14:40-0400 Diastolic blood pressure 72 mm[Hg] Jeff Perry MD Work Phone: [facility] 08-15-2023 14:40-0400 Heart rate 93 /min Jeff Perry MD Work Phone: [facility] 08-15-2023 14:40-0400 Respiratory rate 16 /min Jeff Perry MD Work Phone: [facility] 08-15-2023 14:40-0400 SaO2% (BldA) [Mass fraction] 94 % Jeff Perry MD Work Phone: [facility] 08-15-2023 14:40-0400 Systolic blood pressure 120 mm[Hg] Jeff Perry MD Work Phone: [facility] 05-25-2023 15:38-0400 Body height 180.[address] Zach Perry Work Phone: [facility] 05-25-2023 15:38-0400 Body mass index (BMI) [Ratio] 33.7 kg/m2 Dr. Zach Perry Work Phone: [facility] 05-25-2023 15:38-0400 Body weight 109.[address] Zach Perry Work Phone: [facility] 05-25-2023 15:38-0400 Diastolic blood pressure 73 mm[Hg] Dr. Zach Perry Work Phone: [facility] 05-25-2023 15:38-0400 Heart rate 75 /min Dr. Zach Perry Work Phone: 1(606)804-027969 [place] [address] 05-25-2023 15:38-0400 Respiratory rate 18 /min Dr. Zach Perry Work Phone: 1(714)664-269369 [place] [address] 05-25-2023 15:38-0400 SaO2% (BldA) [Mass fraction] 95 % Dr. Zach Perry Work Phone: 5(986)662-215969 [place] [address] 05-25-2023 15:38-0400 Systolic blood pressure 125 mm[Hg] Dr. Zach Perry Work Phone: 3(911)833-362769 [place] [address] 04-18-2023 14:07-0400 Body mass index (BMI) [Ratio] 34 kg/m2 Dr. Zach Perry Work Phone: 5(293)206-806969 [place] [address] 04-18-2023 14:07-0400 Body temperature 98.4 [degF] Dr. Zach Perry Work Phone: 8(479)014-375169 [place] [address] 04-18-2023 14:07-0400 Body weight 110.[address] Zach Perry Work Phone: 0(786)222-594369 [place] [address] 04-18-2023 14:07-0400 Diastolic blood pressure 76 mm[Hg] Dr. Zach Perry Work Phone: 0(957)405-789569 [place] [address] 04-18-2023 14:07-0400 Heart rate 78 /min Dr. Zach Perry Work Phone: 4(786)361-195069 [place] [address] 04-18-2023 14:07-0400 Respiratory rate 16 /min Dr. Zach Perry Work Phone: 7(639)248-634469 [place] [address] 04-18-2023 14:07-0400 SaO2% (BldA) [Mass fraction] 97 % Dr. Zach Perry Work Phone: 5(156)538-692969 [place] [address] 04-18-2023 14:07-0400 Systolic blood pressure 118 mm[Hg] Dr. Zach Perry Work Phone: 7(125)362-942769 [place] [address] 10-24-2022 12:25-0500 Diastolic blood pressure 87 mm[Hg] Dr. Zach Perry Work Phone: [facility] Work Phone: 10-24-2022 12:25-0500 Heart rate 56 /min Dr. Zach Perry Work Phone: [facility] Work Phone: 10-24-2022 12:25-0500 Respiratory rate 16 /min Dr. Zach Perry Work Phone: [facility] Work Phone: 10-24-2022 12:25-0500 SaO2% (BldA) [Mass fraction] 95 % Dr. Zach Perry Work Phone: [facility] Work Phone: 10-24-2022 12:25-0500 Systolic blood pressure 114 mm[Hg] Dr. Zach Perry Work Phone: [facility] Work Phone: 10-24-2022 09:00-0500 Body temperature 97.1 [degF] Dr. Zach Perry Work Phone: [facility] Work Phone: 10-23-2022 01:53-0500 Body height 180.[address] Zach Perry Work Phone: [facility] Work Phone: 10-23-2022 01:53-0500 Body mass index (BMI) [Ratio] 33.1 kg/m2 Dr. Zach Perry Work Phone: [facility] Work Phone: 10-23-2022 01:53-0500 Body weight 107.[address] Zach Perry Work Phone: [facility] Work Phone: 10-23-2022 01:33-0500 Body temperature 98.4 [degF] Dr. Zach Perry Work Phone: [facility] Work Phone: 10-23-2022 01:33-0500 Diastolic blood pressure 79 mm[Hg] Dr. Zach Perry Work Phone: [facility] Work Phone: 10-23-2022 01:33-0500 Heart rate 97 /min Dr. Zach Perry Work Phone: [facility] Work Phone: 10-23-2022 01:33-0500 Respiratory rate 15 /min Dr. Zach Perry Work Phone: [facility] Work Phone: 10-23-2022 01:33-0500 SaO2% (BldA) [Mass fraction] 94 % Dr. Zach Perry Work Phone: [facility] Work Phone: 10-23-2022 01:33-0500 Systolic blood pressure 157 mm[Hg] Dr. Zach Perry Work Phone: [facility] Work Phone: 10-22-2022 22:25-0500 Body height 180.[address] Zach Perry Work Phone: [facility] Work Phone: 10-22-2022 22:25-0500 Body mass index (BMI) [Ratio] 32.8 kg/m2 Dr. Zach Perry Work Phone: [facility] Work Phone: 10-22-2022 22:25-0500 Body weight 106.[address] Zach Perry Work Phone: [facility] Work Phone: 09-08-2022 08:00-0400 Body mass index (BMI) [Ratio] 33.3 kg/m2 Dr. Zach Perry Work Phone: [facility] Work Phone: 09-08-2022 08:00-0400 Body weight 108.[address] Zach Perry Work Phone: [facility] Work Phone: 09-08-2022 08:00-0400 Diastolic blood pressure 80 mm[Hg] Dr. Zach Perry Work Phone: [facility] Work Phone: 09-08-2022 08:00-0400 Heart rate 93 /min Dr. Zach Perry Work Phone: [facility] Work Phone: 09-08-2022 08:00-0400 Respiratory rate 18 /min Dr. Zach Perry Work Phone: [facility] Work Phone: 09-08-2022 08:00-0400 SaO2% (BldA) [Mass fraction] 95 % Dr. Zach Perry Work Phone: [facility] Work Phone: 09-08-2022 08:00-0400 Systolic blood pressure 153 mm[Hg] Dr. Zach Perry Work Phone: [facility] Work Phone: 08-11-2022 15:42-0400 Body weight 107.59 kg Charu Podlogar ENGRAVING SUPERVISOR.DATA PROCESSING EQUIPMENT REPAIRER Work Phone: [facility] 08-11-2022 15:42-0400 Diastolic blood pressure 80 mm[Hg] Charu Podlogar ENGRAVING SUPERVISOR.DATA PROCESSING EQUIPMENT REPAIRER Work Phone: [facility] 08-11-2022 15:42-0400 Heart rate 97 /min Charu Podlogar ENGRAVING SUPERVISOR.DATA PROCESSING EQUIPMENT REPAIRER Work Phone: [facility] 08-11-2022 15:42-0400 Respiratory rate 16 /min Charu Podlogar ENGRAVING SUPERVISOR.DATA PROCESSING EQUIPMENT REPAIRER Work Phone: [facility] 08-11-2022 15:42-0400 SaO2% (BldA) [Mass fraction] 96 % Charu Podlogar ENGRAVING SUPERVISOR.DATA PROCESSING EQUIPMENT REPAIRER Work Phone: [facility] 08-11-2022 15:42-0400 Systolic blood pressure 134 mm[Hg] Charu Pérez APRN.DATA PROCESSING EQUIPMENT REPAIRER Work Phone: [facility] 04-12-2022 13:54-0400 Body height 180.[address] Zach Perry Work Phone: [facility] Work Phone: 04-12-2022 13:54-0400 Body mass index (BMI) [Ratio] 32.9 kg/m2 Dr. Zach Perry Work Phone: [facility] Work Phone: 04-12-2022 13:54-0400 Body temperature 96.7 [degF] Dr. Zach Perry Work Phone: [facility] Work Phone: 04-12-2022 13:54-0400 Body weight 107.[address] Zach Perry Work Phone: [facility] Work Phone: 04-12-2022 13:54-0400 Diastolic blood pressure 76 mm[Hg] Dr. Zach Perry Work Phone: [facility] Work Phone: 04-12-2022 13:54-0400 Heart rate 67 /min Dr. Zach Perry Work Phone: [facility] Work Phone: 04-12-2022 13:54-0400 Respiratory rate 14 /min Dr. Zach Perry Work Phone: [facility] Work Phone: 04-12-2022 13:54-0400 SaO2% (BldA) [Mass fraction] 96 % Dr. Zach Perry Work Phone: [facility] Work Phone: 04-12-2022 13:54-0400 Systolic blood pressure 130 mm[Hg] Dr. Zach Perry Work Phone: [facility] Work Phone: 02-17-2022 14:22-0400 Body height 180.[address] Zach Perry Work Phone: [facility] Work Phone: 02-17-2022 14:22-0400 Body mass index (BMI) [Ratio] 32.6 kg/m2 Dr. Zach Perry Work Phone: [facility] Work Phone: 02-17-2022 14:22-0400 Body weight 106.[address] Zach Perry Work Phone: [facility] Work Phone: 02-17-2022 14:22-0400 Diastolic blood pressure 77 mm[Hg] Dr. Zach Perry Work Phone: [facility] Work Phone: 02-17-2022 14:22-0400 Heart rate 74 /min Dr. Zach Perry Work Phone: [facility] Work Phone: 02-17-2022 14:22-0400 Respiratory rate 16 /min Dr. Zach Perry Work Phone: [facility] Work Phone: 02-17-2022 14:22-0400 SaO2% (BldA) [Mass fraction] 96 % Dr. Zach Perry Work Phone: [facility] Work Phone: 02-17-2022 14:22-0400 Systolic blood pressure 127 mm[Hg] Dr. Zach Perry Work Phone: [facility] Work Phone: 05-06-2017 13:22-0400 BMI (Body Mass Index) 32.77 kg/m2 [facility] Work Phone: 05-06-2017 13:22-0400 Weight 106.6 kg Ajay Acevedo [facility] Work Phone: 04-18-2017 13:47-0400 BMI (Body Mass Index) 33.8 kg/m2 Joselyn Finnegan LPN [facility] Work Phone: 04-18-2017 13:47-0400 Body Temperature 98.3 [degF] Joselyn Finnegan LPN [facility] Work Phone: 04-18-2017 13:47-0400 BP Diastolic 88 mm[Hg] Joselyn Finnegan LPN [facility] Work Phone: 04-18-2017 13:47-0400 BP Systolic 130 mm[Hg] Joselyn Finnegan LPN [facility] Work Phone: 04-18-2017 13:47-0400 Height 180.34 cm Joselyn Finnegan LPN [facility] Work Phone: 04-18-2017 13:47-0400 Pulse (Heart Rate) 82 /min Joselyn Finnegan LPN [facility] Work Phone: 04-18-2017 13:47-0400 Pulse Oximetry 98 % Joselyn Finnegan LPN [facility] Work Phone: 04-18-2017 13:47-0400 Respiratory Rate 12 /min Joselyn Finnegan LPN [facility] Work Phone: 04-18-2017 13:47-0400 Weight 109.95 kg Joselyn Finnegan LPN [facility] Work Phone: Encounters Encounter Date Encounter Type Care Provider Facility Start: 08-23-2025 [facility] Facility :[facility] Start: 08-20-2025 ambulatory [facility] Facility :[facility] Start: 08-01-2025 [facility] Facility :[facility] Start: 07-30-2025 Encounter for other preprocedural examination [facility] Start: 07-23-2025 End: 07-23-2025 ambulatory JABIER GIRON Facility:[facility] Start: 07-23-2025 End: 07-23-2025 Patient encounter procedure Jabier Giron APRN.CNP Work Phone: [facility] Comment on above: Annual physical exam (Primary Dx); Type 2 diabetes mellitus without complication, without long-term current use of insulin (HCC); Atrial fibrillation, unspecified type (HCC); Hyperlipidemia LDL goal <100; Hypertension, essential; Screening for depression; Encounter for screening examination for other mental health and behavioral disorders Start: 07-19-2025 ambulatory Emigdio Blake Facility :[facility] Start: 07-17-2025 End: 07-17-2025 Patient encounter procedure Emigdio HU -[facility] Work Phone: Start: 07-17-2025 End: 07-17-[address] Zach Perry MD Work Phone: -[facility] Start: 06-12-2025 End: 06-12-[address] Zach Perry MD Work Phone: [facility] Start: 06-12-2025 End: 06-12-[address] Jose Martini DO -[facility] Work Phone: Start: 06-12-2025 End: 06-12-2025 ambulatory [facility] Facility:[facility] Start: 04-16-2025 End: 04-16-[address] Kike Mccoy MD -[facility] Work Phone: Start: 04-16-2025 End: 04-16-[address] Zach Perry MD Work Phone: [facility] Work Phone: Start: 12-21-2024 ambulatory Zach Gutierrez lity:[facility] Start: 12-19-2024 End: 12-19-[address] Jose Martini DO -[facility] Work Phone: Start: 12-19-2024 End: 12-19-2024 ambulatory Zach Perry Facility:[facility] Start: 12-12-2024 End: 12-12-2024 ambulatory Zach Vicky Facility:[facility] Start: 12-05-2024 End: 12-05-2024 ambulatory Zach Peryr Facility:[facility] Start: 11-08-2024 End: 11-08-2024 Telephone encounter Jeff Perry MD Work Phone: [facility] Comment on above: Results Start: 11-03-2024 End: 11-03-2024 ambulatory Zach Perry Facility:[facility] Start: 10-30-2024 End: 10-30-2024 Telephone encounter Jeff Perry MD Work Phone: [facility] Comment on above: Results Start: 10-22-2024 End: 10-22-2024 ambulatory Zach Perry Facility:[facility] Start: 08-22-2024 End: 09-26-2024 Telephone encounter Jeff Perry MD Work Phone: [facility] Comment on above: Results Start: 08-15-2024 End: 08-15-2024 Patient encounter procedure Charu Pérez APRN.CNP Work Phone: [facility] Comment on above: Hypertension, essent ial (Primary Dx); Type 2 diabetes mellitus without complication, without long-term current use of insulin (HCC); Hyperlipidemia LDL goal <100; Atrial fibrillation, unspecified type (HCC) Start: 08-15-2024 End: 08-15-2024 ambulatory JEFF PERRY Facility:[facility] Start: 08-13-2024 ambulatory Zach Perry Faci lity:[facility] Start: 08-13-2024 End: 08-13-2024 [facility] Start: 08-01-2024 End: 08-01-2024 Refill Jeff Perry MD Work Phone: [facility] Comment on above: Refill Request Start: 07-30-2024 End: 07-31-2024 Telephone encounter Charu Beto MALIK Work Phone: [facility] Comment on above: Orders (PSA) Start: 12-15-2023 End: 12-15-2023 ambulatory [facility] Work Phone: Start: 12-15-2023 End: 12-15-2023 Patient encounter procedure [facility]-Laboratory Work Phone: Start: 08-15-2023 End: 08-15-2023 Patient encounter procedure Jeff Perry MD Work Phone: [facility] Comment on above: Annual physical exam (Primary [...] Work Phone: [facility] Work Phone: Start: 06-10-2023 End: 06-10-[address] Zach Perry Work Phone: [facility]-Radiology, [facility] Work Phone: Start: 05-25-2023 End: 05-25-[address] Zach Perry Work Phone: [facility] Work Phone: Start: 04-18-2023 End: 04-18-[address] Zach Perry Work Phone: [facility] Work Phone: Start: 04-13-2023 End: 04-13-[address] Zach Perry Work Phone: [facility]-Laboratory Work Phone: Start: 02-11-2023 Refill Jeff Perry MD Work Phone: [facility] Comment on above: Refill Request; Refi ll Request Start: 01-24-2023 Refill Jeff Perry MD Work Phone: [facility] Comment on above: Refill Request Start: 11-09-2022 Refill Jeff Perry MD Work Phone: [facility] Comment on above: Refill Request Start: 10-23-2022 Non-patient / Non-visit Dr. Betahny Perry Work Phone: [facility] Start: 10-23-2022 Non-patient / Non-visit Dr. Bethany Perry Work Phone: [facility] Start: 10-23-2022 End: 10-24-2022 Evaluation and management of inpatient Dr. Zach Perry Work Phone: [facility]-Progressive Care Unit Start: 09-08-2022 End: 09-08-[address] Zach Perry Work Phone: [facility] Start: 08-11-2022 End: 08-11-2022 Patient encounter procedure Charu Pérez APRN.CNP Work Phone: [facility] Comment on above: Hypertension, essent ial (Primary Dx); Family history of skin cancer; Acute pain of right knee; Type 2 diabetes mellitus without complication, without long-term current use of insulin (HCC); Hyperlipidemia LDL goal <100 Start: 08-05-[address] Reji Perry Work Phone: [facility]-Employee Health Start: 08-05-2022 End: 08-05-[address] Zach Perry Work Phone: [facility] Work Phone: Start: 08-05-2022 End: 08-05-[address] Zach Perry Work Phone: [facility]-Laboratory Start: 07-27-2022 Telephone encounter Zach Perry MD Work Phone: [facility] Comment on above: requesting lab order Start: 06-18-2022 Refill Jeff Perry MD Work Phone: [facility] Comment on above: Refill Request Start: 04-12-2022 Refill Jeff Perry MD Work Phone: [facility] Comment on above: Refill Request Start: 04-12-2022 End: 04-12-[address] Zach Perry Work Phone: [facility] Start: 03-08-2022 Telephone encounter Charu castro APRN.CNP Work Phone: [facility] Comment on above: Results Start: 03-03-2022 End: 03-03-[address] Zach Perry Work Phone: [facility]-Laboratory Start: 02-17-2022 Telephone encounter Zach Perry MD Work Phone: [facility] Comment on above: Fax requested Start: 02-17-2022 End: 02-17-[address] Zach Perry Work Phone: [facility] Start: 02-03-2022 Non-patient / Non-visit Dr. Bethany Perry Work Phone: [facility] Start: 01-27-2022 Refill Jeff Perry MD Work Phone: [facility] Comment on above: Refill Request Request to fax lab o rders to [facility] Start: 12-08-2021 Non-patient / Non-visit Dr. Bethany Perry Work Phone: [facility] Start: 12-08-2021 End: 12-08-[address] [facility] Start: 12-07-2021 Non-patient / Non-visit Dr. Bethany Perry Work Phone: [facility] Start: 12-07-2021 End: 12-07-[address] [facility] Start: 12-03-2021 End: 12-03-[address] Zach Perry Work Phone: [facility]-Laboratory Start: 12-02-2021 Telephone encounter Charu castro ENGRAVING SUPERVISOR.DATA PROCESSING EQUIPMENT REPAIRER Work Phone: [facility] [place] Comment on above: Results Start: 11-11-[address] Reji Perry Work Phone: [facility] Start: 11-11-2021 End: 11-11-[address] Zach Perry Work Phone: [facility] Procedures Date Procedure Procedure Detail Performing Clinician Start: 07-23-2025 Adult depression screening assessment Jabier Giron APRN.DATA PROCESSING EQUIPMENT REPAIRER Work Phone: Start: 06-12-2025 X-ray of knee, [...] Detail Author Start: 07-22-2031 Urine microalbumin profile [facility] Start: 08-26-2026 Colonoscopy COLONOSCOPY [facility] Start: 08-26-2026 COLORECTAL CANCER SCREENING COLORECTAL CANCER SCREENING [facility] Start: 08-26-2026 Screening for malign ant neoplasm of colon [facility] Start: 07-23-2026 Annual PCP Team Record Clerk billy Disease Visit Annual PCP Team Chronic Disease Visit [facility] Start: 07-23-2026 Anxiety Screening Anxiety Screening [facility] Start: 07-23-2026 Depression Screening Depression Scre ening [facility] Start: 07-19-2026 Diabetic foot examination Diabetic F oot Exam [facility] Start: 07-19-2026 Hepatitis B screening Urine Albumin:Creatinine Ratio [facility] Start: 07-19-2026 Hepatitis B surface antibody level LDL Cholesterol [facility] Start: 05-22-2026 Glaucoma screening Dilated Retinal E xam [facility] Start: 01-16-2026 Hemoglobin A1c measurement HbA1C [facility] Start: 12-24-2025 PROSTATE CANCER SCRE ENING DISCUSSION PROSTATE CANCER SCREENING DISCUSSION [facility] Start: 12-24-2025 Prostate specific an tigen measurement Prostate Cancer Screening Discussion [facility] Start: 08-15-2025 Annual PCP Team Record Clerk billy Disease Visit Annual PCP Team Chronic Disease Visit [facility] Start: 08-15-2025 Covid-19 Vaccine ( season) Covid-19 Vaccine ( season) [facility] Comment on above: Postponed from 07/08 (Declined at this time) Start: 08-15-2025 Diabetic foot examination Diabetic F oot Exam [facility] Start: 07-08-2025 Influenza vaccination Influenza Vacc ine (#1) [facility] Start: 06-12-2025 X-ray of knee, four or more views Knee 4 or More Views [place] [facility] Start: 06-12-2025 XR Knee GE [address] [facility] [facility] Start: 05-06-2025 Influenza vaccination Influenza Vacc ine (#1) [facility] Comment on above: Postponed from 07/08 (Declined at this time) Start: 09-22-2024 End: 12-22-2024 Urinalysis complete panel - Urine URINALYSIS, WITH MICROSCOPIC Lab Routine Proteinuria, unspecified type Expected: 09/22/2024, Expires: 12/22/2024 [facility] Work Phone: Comment on above: Expected: 09/22/2024 , Expires: 12/22/2024 Start: 08-15-2024 End: 08-15-2024 Patient encounter procedure 08/15/2024 5:00 PM EDT Office Visit [facility] [address] [place], [place] [id number] Podlogar[employer]u APRN.DATA PROCESSING EQUIPMENT REPAIRER [address] [place] [address] diabetic med check [facility] Comment on above: diabetic med check Start: 08-15-2024 3 comp foot exam completed Diabetic Foot Exam [facility] Start: 08-15-2024 Annual PCP Team Record Clerk billy Disease Visit Annual PCP Team Chronic Disease Visit [facility] Start: 08-15-2024 BP Controlled (<130/80) BP Con trolled (<130/80) [facility] Start: 08-15-2024 Covid-19 Vaccine ( season) Covid-19 Vaccine () [facility] Comment on above: Postponed from 07/08 (Declined at this time) Start: 08-15-2024 Diabetic foot examination Diabetic F oot Exam [facility] Start: 08-15-2024 Hepatitis B Vaccine (1 of 3 - 19+ 3-dose series) Hepatitis B Vaccine (1 of 3 - 19+ 3-dose series) [facility] Comment on above: Postponed from 04/09 (Declined at this time) Start: 08-15-2024 Hepatitis B Vaccine (1 of 3 - 3-dose series) Hepatitis B Vaccine (1 of 3 - 3-dose series) [facility] Comment on above: Postponed from 04/09 (Declined at this time) Start: 08-15-2024 Pneumococcal vaccination [facility] Comment on above: Postponed from 04/09 (Declined at this time) Start: 08-15-2024 Shingrix Vaccine (1 of 2) [place] grix Vaccine (1 of 2) [facility] Comment on above: Postponed from 04/09 (Declined at this time) Start: 08-09-2024 Hepatitis B surface antibody level LDL Cholesterol [facility] Start: 07-31-2024 End: 10-30-2024 CBC W Auto Differential panel - Blood COMPLETE BLOOD COUNT AND DIFFERENTIAL Lab Routine Type 2 diabetes mellitus without complication, without long-term current use of insulin (HCC) Expected: 07/31/2024, Expires: 10/30/2024 [facility] Comment on above: Expected: 07/31/2024 , Expires: 10/30/2024 Start: 07-31-2024 End: 10-30-2024 Comprehensive metabolic 2000 panel - Serum or Plasma COMPREHENSIVE METABOLIC PANEL Lab Routine Type 2 diabetes mellitus without complication, without long-term current use of insulin (HCC) Expected: 07/31/2024, Expires: 10/30/2024 [facility] Comment on above: Expected: 07/31/2024 , Expires: 10/30/2024 Start: 07-31-2024 End: 10-30-2024 Hemoglobin A1c in Blood HEMOGLOBIN A1C Lab Routine Type 2 diabetes mellitus without complication, without long-term current use of insulin (HCC) Expected: 07/31/2024, Expires: 10/30/2024 [facility] Comment on above: Expected: 07/31/2024 , Expires: 10/30/2024 Start: 07-31-2024 End: 10-30-2024 Lipid 1996 panel - Serum or Plasma LIPID PANEL BASIC Lab Routine Type 2 diabetes mellitus without complication, without long-term current use of insulin (HCC) Expected: 07/31/2024, Expires: 10/30/2024 [facility] Work Phone: Comment on above: Expected: 07/31/2024 , Expires: 10/30/2024 Start: 07-31-2024 End: 10-30-2024 Prostate specific Ag [Mass/volume] in Serum or Plasma PROSTATE-SPECIFIC ANTIGEN DIAGNOSTIC Lab Routine Screening for prostate cancer Expected: 07/31/2024, Expires: 10/30/2024 [facility] Comment on above: Expected: 07/31/2024 , Expires: 10/30/2024 Start: 07-08-2024 Covid-19 Vaccine ( season) Covid-19 Vaccine ( season) [facility] Start: 07-08-2024 Influenza vaccination Influenza Vacc ine (#1) [facility] Start: 05-06-2024 Influenza vaccination Influenza Vacc ine (#1) [facility] Comment on above: Postponed from 07/08 (Declined at this time) Start: 02-11-2024 Glaucoma screening Dilated Retinal E xam [facility] Start: 02-11-2024 Hepatitis C antibody , confirmatory test DILATED RETINAL EXAM [facility] Start: 10-25-2023 Hepatitis B screening Urine Albumin:Creatinine Ratio [facility] Comment on above: Postponed from 02/13 (Declined at this time) Start: 10-13-2023 Hemoglobin A1c measurement HbA1C [facility] Start: 10-13-2023 Hemoglobin A1c/Hemoglobin.total in Blood HbA1C [facility] Start: 08-11-2023 3 comp foot exam completed DIABETIC FOOT EXAM [facility] Start: 08-11-2023 ANNUAL PCP TEAM ECONOMIC GEOGRAPHER BILLY DISEASE VISIT ANNUAL PCP TEAM CHRONIC DISEASE VISIT [facility] Start: 07-08-2023 Influenza vaccination INFLUENZ A (Season Ended) [facility] Start: 12-02-2022 ANNUAL PCP TEAM ECONOMIC GEOGRAPHER BILLY DISEASE VISIT ANNUAL PCP TEAM CHRONIC DISEASE VISIT [facility] Start: 11-07-2022 DEPRESSION ASSESSMENT DEPRESSION ASS ESSMENT [facility] Start: 10-25-2022 Blood chemistry [facility] Work Phone: Start: 10-24-2022 Patient discharge [facility] Work Phone: Start: 10-23-2022 End: 10-23-2022 Care planning and problem solving actions [facility] Work Phone: Start: 10-23-2022 Application of intermittent pneumatic compression device [facility] Work Phone: Start: 10-23-2022 Following clinical pathway protocol [facility] Work Phone: Start: 10-23-2022 Assessment of risk o f venous thromboembolism [facility] Work Phone: Start: 10-23-2022 Care regimes management [facility] Work Phone: Start: 10-23-2022 Incentive spirometry [facility] Work Phone: Start: 10-23-2022 Inhalation therapy procedure [facility] Work Phone: Start: 10-23-2022 Insertion of cathete r into peripheral vein [facility] Work Phone: Start: 10-23-2022 Measuring intake and output [facility] Work Phone: Start: 10-23-2022 Providing care accor ding to standard [facility] Work Phone: Start: 10-23-2022 Provision of activit y privileges [facility] Work Phone: Start: 10-23-[address] [facility] Work Phone: Start: 10-23-2022 Verification routine [facility] Work Phone: Start: 10-23-2022 Admission procedure [facility] Work Phone: Start: 10-22-[address] [facility] Work Phone: Start: 09-08-2022 Hepatitis C antibody , confirmatory test DILATED RETINAL EXAM [facility] Start: 08-11-2022 End: 10-11-2022 ALBUMIN/CREAT RATIO RND UR ALBUMIN/CREAT RATIO RND UR Lab Routine Type 2 diabetes mellitus without complication, without long-term current use of insulin (HCC) Expected: 08/11/2022, Expires: 10/11/2022 [facility] Work Phone: Comment on above: Expected: 08/11/2022 , Expires: 10/11/2022 Start: 07-30-2022 End: 09-29-2022 PSA/PROSTSPECAG SCRN PSA/PROSTSPECAG SCRN Lab Routine Screening for prostate cancer Expected: 07/30/2022, Expires: 09/29/2022 [facility] Work Phone: Comment on above: Expected: 07/30/2022 , Expires: 09/29/2022 Start: 07-22-2022 3 comp foot exam completed DIABETIC FOOT EXAM [facility] Start: 07-22-2022 Adult depression screening assessment DEPRESSION SCREENING [facility] Start: 07-22-2022 ONE PNEUMOVAX PRIOR TO AGE 65 ONE PNEUMOVAX PRIOR TO AGE 65 [facility] Comment on above: Postponed from 04/09 (Declined at this time) Start: 07-22-2022 PNEUMOCOCCAL (1 - PCV) PNEUMOCOCCAL (1 - PCV) [facility] Comment on above: Postponed from 04/09 (Declined at this time) Start: 07-08-2022 Influenza vaccination INFLUENZA (#1) [facility] Start: 01-13-2022 Hemoglobin A1c/Hemoglobin.total in Blood HBA1C [facility] Start: 12-24-2021 Hepatitis B surface antibody level LDL CHOLESTEROL [facility] Start: 11-07-2021 DEPRESSION ASSESSMENT DEPRESSION ASS ESSMENT [facility] Start: 05-07-2021 COVID-19 VACCINE (3 - Booster for Moderna series) COVID-19 VACCINE (3 - Booster for Moderna series) [facility] Start: 02-02-2021 COVID-19 VACCINE (3 - Booster for Moderna series) COVID-19 VACCINE (3 - Booster for Moderna series) [facility] Start: 02-13-2019 Hepatitis B screening URINE ALBUMIN:CREATININE RATIO [facility] Start: 05-06-2017 End: 05-06-2017 X-ray exam, knee, 4 or more X-Ray, Knee [facility] Work Phone: Start: 04-18-2017 End: 04-18-2017 Appointment Appointment [facility] Work Phone: Start: 2017 SHINGRIX VACCINE (1 of 2) [place] GRIX VACCINE (1 of 2) [facility] Start: 2012 COLOGUARD (FIT-DNA) COLOGUARD (FIT-D NA) [facility] Start: [address] COLONOGRAPHY [facility] Start: 2012 FECAL OCCULT BLOOD FECAL OCCULT BLOO D [facility] Start: 2012 Screening for malign ant neoplasm of colon [facility] Start: 2012 SIGMOIDOSCOPY SIGMOIDOSCOPY [facility] Start: 1986 HEPATITIS B (1 of 3 - Risk 3-dose series) HEPATITIS B (1 of 3 - Risk 3-dose series) [facility] Start: 1986 Hepatitis B Vaccine (1 of 3 - 19+ 3-dose series) Hepatitis B Vaccine (1 of 3 - 19+ 3-dose series) [facility] Start: 1986 Pneumococcal Vaccine : 50+ (1 of 2 - PCV) Pneumococcal Vaccine: 50+ (1 of 2 - PCV) [facility] Start: 1985 Anxiety Screening Anxiety Screening [facility] Start: 1985 BP CONTROLLED (<130/80) BP CON TROLLED (<130/80) [facility] Start: 1985 Depression Screening Depression Scre ening [facility] Start: 1973 PNEUMOCOCCAL (1 - PCV) PNEUMOCOCCAL (1 - PCV) [facility] Start: 1973 Pneumococcal vaccination Pneum ococcal Vaccine (1 of 2 - PCV) [facility] Start: 1967 HEPATITIS B (1 of 3 - 3-dose series) HEPATITIS B (1 of 3 - 3-dose series) [facility] Bilirubin measuremen t, urine [facility] Work Phone: Comprehensive metabo lic 1999 panel - Serum or Plasma [facility] Hemoglobin [Presence ] in Urine [facility] Work Phone: Hemoglobin A1c/Hemoglobin.total in Blood [facility] Lipid 1995 panel - S vick or Plasma [facility] Lipid 1995 panel - S rust or Plasma [facility] Measurement of keton es in urine using dipstick [facility] Work Phone: Patient Education [facility] [employer] in Work Phone: Patient referral [facility] Work Phone: pH of Urine [facility] Work Phone: Prostate specific an tigen measurement [facility] Specific gravity of Urine [facility] Work Phone: Thyroid stimulating hormone measurement [facility] Thyroid stimulating hormone measurement [facility] Urine dipstick for glucose [facility] Work Phone: Urine dipstick for leukocyte esterase [facility] Work Phone: Urine dipstick for nitrite [facility] Work Phone: Urine dipstick for protein [facility] Work Phone: Urine examination [facility] Work Phone: Urine microalbumin/creatinine ratio measurement [facility] Urine microalbumin/creatinine ratio measurement [facility] Urobilinogen [Presen ce] in Urine [facility] Work Phone: End: 11-29-2025 US Kidney - bilateral and Urinary bladder US KIDNEY/BLADDER Radiology Routine Proteinuria, unspecified type 1 Occurrences starting 10/30/2024 until 11/29/2025 [facility] Work Phone: Comment on above: 1 Occurrences starti ng 10/30/2024 until 11/29/2025 Vitamin D, 25-hydrox y measurement [facility] End: 09-10-2023 XR KNEE GENERAL 4V AP BOTH/PA BOTH/LAT/MERC RIGHT XR KNEE GENERAL 4V AP BOTH/PA BOTH/LAT/MERC RIGHT Radiology Routine Acute pain of right knee 1 Occurrences starting 08/11/2022 until 09/10/2023 [facility] Work Phone: Comment on above: 1 Occurrences starti ng 08/11/2022 until 09/10/2023 [facility] Immunizations Immunization Date Immunization Notes Care Provider Juan Carlos holm 10-01-2024 influenza, seasonal, injectable, preservative free Dr. Zahc Perry MD Work Phone: [facility] 10-01-2024 influenza virus vaccine, unspecified formulation Jabier Giron APRN.DATA PROCESSING EQUIPMENT REPAIRER Work Phone: [facility] 09-26-2023 influenza, injectabl e, quadrivalent, preservative free [facility] 09-26-2023 influenza virus vaccine, unspecified formulation Charu Pérez APRN.DATA PROCESSING EQUIPMENT REPAIRER Work Phone: [facility] 10-05-2022 influenza, injectabl e, quadrivalent, preservative free [facility] 10-05-2022 influenza, seasonal, injectable Dr. Zach Perry Work Phone: [facility] 10-05-2022 influenza virus vaccine, unspecified formulation Jeff Perry MD Work Phone: [facility] 09-17-2021 influenza, injectabl e, quadrivalent, preservative free [facility] 09-17-2021 influenza, seasonal, injectable Dr. Zach Perry Work Phone: [facility] 09-17-2021 influenza, seasonal, injectable, preservative free Jeff Perry MD Work Phone: [facility] Work Phone: 07-22-2021 tetanus toxoid, reduced diphtheria toxoid, and acellular pertussis vaccine, adsorbed Jeff Perry MD Work Phone: [facility] 12-08-2020 COVID-19 vaccine, fu ll dose (MODERNA) Jeff Perry MD Work Phone: [facility] 11-10-2020 COVID-19 vaccine, fu ll dose (MODERNA) Jeff Perry MD Work Phone: [facility] 09-29-2020 influenza, injectabl e, quadrivalent, preservative free [facility] 09-29-2020 influenza, seasonal, injectable Dr. Zach Perry Work Phone: [facility] 09-29-2020 influenza, seasonal, injectable, preservative free Jeff Perry MD Work Phone: [facility] Work Phone: 10-01-2019 influenza, injectabl e, quadrivalent, preservative free [facility] 10-01-2019 influenza, seasonal, injectable Dr. Zach Perry Work Phone: [facility] 10-01-2019 influenza, seasonal, injectable, preservative free Jeff Perry MD Work Phone: [facility] Work Phone: 08-21-2018 influenza, injectabl e, quadrivalent, preservative free [facility] 08-21-2018 influenza, seasonal, injectable Dr. Zach Perry Work Phone: [facility] 08-21-2018 influenza, seasonal, injectable, preservative free Jeff Perry MD Work Phone: [facility] Work Phone: 10-05-2017 influenza, injectabl e, quadrivalent, preservative free [facility] 10-05-2017 influenza, seasonal, injectable Dr. Zach Perry Work Phone: [facility] 10-05-2017 influenza, seasonal, injectable, preservative free Jeff Perry MD Work Phone: [facility] Work Phone: 08-06-2016 influenza, injectabl e, quadrivalent, preservative free [facility] 08-06-2016 influenza, seasonal, injectable Jeff Perry MD Work Phone: [facility] 08-06-2016 influenza, seasonal, injectable, preservative free Jeff Perry MD Work Phone: [facility] Work Phone: 08-06-2015 influenza, injectabl e, quadrivalent, preservative free [facility] 08-06-2015 influenza, seasonal, injectable Dr. Zach Perry Work Phone: [facility] 08-06-2015 influenza, seasonal, injectable, preservative free Jeff Perry MD Work Phone: [facility] Work Phone: 08-01-2014 influenza, injectabl e, quadrivalent, preservative free [facility] 08-01-2014 influenza, seasonal, injectable Dr. Zach Perry Work Phone: [facility] 08-01-2014 influenza, seasonal, injectable, preservative free Jeff Perry MD Work Phone: [facility] Work Phone: 11-15-[address] Zach Perry Work Phone: [facility] 11-15-2013 influenza, seasonal, injectable Jeff Perry MD Work Phone: [facility] 11-15-2013 influenza, seasonal, injectable, preservative free Jeff Perry MD Work Phone: [facility] Work Phone: 02-13-1985 mumps virus vaccine Artie Perry MD Work Phone: [facility] Work Phone: 02-13-1985 rubella virus vaccine Reji Perry MD Work Phone: [facility] Work Phone: 05-09-1983 diphtheria and tetan us toxoids, adsorbed for pediatric use Jeff Perry MD Work Phone: [facility] Work Phone: 05-09-1983 DTP-Haemophilus influenzae type b conjugate vaccine Jeff Perry MD Work Phone: [facility] Work Phone: 10-23-1980 rubella virus vaccine Reji Perry MD Work Phone: [facility] Work Phone: 1965 DTP-Haemophilus influenzae type b conjugate vaccine Jeff Perry MD Work Phone: [facility] Work Phone: 1965 trivalent poliovirus vaccine, live, oral Jeff Perry MD Work Phone: [facility] Work Phone: 1965 DTP-Haemophilus influenzae type b conjugate vaccine Jeff Perry MD Work Phone: [facility] Work Phone: 1965 trivalent poliovirus vaccine, live, oral Jeff Perry MD Work Phone: [facility] Work Phone: 1965 DTP-Haemophilus influenzae type b conjugate vaccine Jeff Perry MD Work Phone: [facility] Work Phone: 1965 trivalent poliovirus vaccine, live, oral Jeff Perry MD Work Phone: [facility] Work Phone: Payers Date Payer Category Payer Self-pay [id number] 2022 Private Health Insurance [id number] 2022 Unknown [id number] 2020 Unknown MMO MMO TPA [id number] 2020-Present [address] [place] [address] PPO [id number] 2020 Unknown MMO MMO TPA [id number] 2020-Present [address] [place] [address] PPO [id number] 2015 Unknown [id number] Unknown [id number] 2 Unknown [id number] [id number] 2 Unknown [id number] [id number] 2 Unknown [id number] [id number] 2 Unknown [id number] [id number] 2 Unknown [id number] [id number] 2 Unknown [id number] [id number] 2 Unknown [id number] [id number] 2 Unknown [id number] [id number] 2 Unknown [id number] [id number] 2 Unknown [id number] 2.16.840.1.860294.3.579.2.46 2 Unknown [id number] 2.16.840.1.108924.3.579.2.46 2 Unknown [id number] [id number] 2 Unknown [id number] [id number] 2 Unknown [id number] [id number] 2 Unknown [id number] 2.16.840.1.800083.3.579.2.46 2 Unknown [id number] [id number] 2 Unknown [id number] [id number] 2 Social History Date Type Detail Facility Start: 07-21-2017 End: 08-11-2022 Tobacco smoking status NHIS Never smoked tobacco [facility] Work Phone: Start: 12-21-2021 End: 11-08-2024 Alcohol intake Current drinker of alcohol (finding) [facility] Start: 12-21-2021 End: 08-15-2023 Alcohol intake [facility] Work Phone: Start: 1965 Sex Assigned At Not on file [facility] Start: 02-17-2022 End: 05-25-2023 Tobacco smoking status NHIS Unknown if ever smoked [facility] Start: 06-03-2020 Non-smoker [facility] Start: 1965 Sex Assigned At Male [facility] Start: 11-21-2021 End: 07-27-2022 Exposure to SARS-CoV-2 (event) Not sure [facility] Start: 07-21-2017 End: 08-11-2022 Tobacco use and exposure Smokeless tobacco non-user [facility] Start: 08-15-2023 End: 07-23-2025 Tobacco use panel [facility] Work Phone: Start: 10-08-2012 Adult Depression Screening Assessment 0 [facility] Work Phone: Medical Equipment Procedure Code [...] 1 times daily. Dx: 250.00. Insulin: No [id number] Start: 08-05-2015 Comment on above: Test blood [...] Facility 10-24-2022 Functional status Ambulates;Up ad juli [facility] Work Phone: 06-26-2020 Are you deaf, or do you have serious difficulty hearing No 06/26/2020 11:12 AM EDT Neal Brown III, MD No [facility] 06-26-2020 Are you blind, or do you have serious difficulty seeing, even when wearing glasses No 06/26/2020 11:12 AM EDT Neal Brown III, MD No [facility] 06-26-2020 Do you have serious difficulty walking or climbing stairs No 06/26/2020 11:12 AM EDT Neal Brown III, MD No [facility] 06-26-2020 Do you have difficul ty dressing or bathing No 06/26/2020 11:12 AM EDT Neal Brown III, MD No [facility] 06-26-2020 Because of a physica l, mental, or emotional condition, do you have difficulty doing errands alone such as visiting a physician's office or shopping No 06/26/2020 11:12 AM EDT Neal Brown III, MD No [facility] Mental Status Date Assessment Result Facility 10-24-2022 Cognitive function Level Of Cons ciousness Awake;Alert [facility] Work Phone: 10-23-2022 Cognitive function Voice/Name [facility] Work Phone: 10-22-2022 Cognitive function Level Of Cons ciousness Awake;Alert;Appropriate;Fol lows Commands [facility] Work Phone: 06-26-2020 Because of a physica l, mental, or emotional condition, do you have serious difficulty concentrating, remembering, or making decisions No 06/26/2020 11:12 AM EDT Neal Brown III, MD No [facility] Clinical Notes 05-04-2017 to 07-23-2025 Jabier Giron APRN.DATA PROCESSING EQUIPMENT REPAIRER - 07/23/2025 12:39 PM EDT Note Date & Type Note Facility 07-23-2025 Note HNO ID: [id number] Author: JABIER GIRON APRN.DATA PROCESSING EQUIPMENT REPAIRER Service: ? Author Type: Nurse Practitioner Type: Progress Notes Filed: 07/23/2025 13:03 Note Text: Chief Complaint Patient presents with: Physical HPI Al Gonzalez is a 60 year old male who presents here today for Above Complaints. Patient presents for annual employment physical. Labs completed 07/19 at [facility] reviewed. Past medical history, appointments, medications, allergies reviewed. Previous Medical History PAST MEDICAL HISTORY Diagnosis Date Biceps tendon rupture bilateral s/p repair Class 1 obesity due to excess calories with serious comorbidity and body mass index (BMI) of 34.0 to 34.9 in adult DM II (diabetes mellitus, type II) ([facility]) Dr. Kike Mccoy. History of atrial [...] Screening Discontinued HIV Screening Discontinued Data reviewed [facility] Labs Reviewed, WNL ASSESSMENT/PLAN: 1. Annual physical [...] medications - Víctor (more content not included)... [facility] 07-23-2025 History of Present illness Narrative Chief Complaint Patient presents with: Physical HPI Al Gonzalez is a 60 year old male who presents here today for Above Complaints. Patient presents for annual employment physical. Labs completed 07/19 at [facility] reviewed. Past medical history, appointments, medications, allergies reviewed. Previous Medical History PAST MEDICAL HISTORY Diagnosis Date Biceps tendon rupture bilateral s/p repair Class 1 obesity due to excess calories with serious comorbidity and body mass index (BMI) of 34.0 to 34.9 in adult DM II (diabetes mellitus, type II) ([facility]) Dr. Kike Mccoy. History of atrial [...] Screening Discontinued HIV Screening Discontinued Data reviewed [facility] Labs Reviewed, WNL ASSESSMENT/PLAN: 1. Annual physical [...] Drug use: No documented in this encounter [facility] 06-13-2025 Radiology Diagnostic study note [facility] Imaging Services [address] [place] [address] Knee 4 or More Views MR#: [id number] Acct: [id number] Name: AL GONZALEZ Rep #: [id number] : [id number] M [id number] From: Ulysses Sanchez MD PCP: Dr. Zach Perry MD Status: REG CLI Study:Knee 4 or More Views Date of Exam: 06/12/25 Exam# [id number] Ordering Dr: Jose Martini DO PROCEDURE: KNEE [...] Views IMPRESSION: Degenerative joint disease. Reading Location: [place] [address] CC: Dr. Zach Perry MD; Dr. 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 [place] [address] Knee 4 or More Views MR#: [id number] Acct: [id number] Name: AL GONZALEZ Rep #: [id number] : [id number] M [id number] From: Aimee Bernal MD PCP: Dr. Zach Perry MD Status: REG CLI Study:Knee 4 or More Views Date of Exam: 06/12/25 Exam# [id number] Ordering Dr: Jose Martini DO PROCEDURE: KNEE 4 OR MORE VIEWS 06/12/2025 REASON FOR EXAM: KNEE PAIN TECHNIQUE: KNEE 4 OR MORE VIEWS COMPARISON: 04/04/2024 FINDINGS: Mild medial femorotibial joint space narrowing. Fragmented tibial tuberosity. Small osteophytes. No acute bone or soft tissue pathology. RAD/Knee 4 or More Views IMPRESSION: Mild right knee osteoarthritis. Possible history of Maurisio-Schlatter disease. Reading Location: [place] [address] CC: Dr. Zach Perry MD; Dr. Jose Martini DO ~ [employer]pper [employer]inter: Signed [facility] 04-16-2025 Evaluation note Diagnosis Onset Date Resolution Diabetes chronic April 16 3:21pm Essential hypertension chronic Ju 2024 3:21pm Hyperlipidemia chronic April 16, 2025 3:21pm EPÑA (nonalcoholic steatohepatitis) chronic April 16, 2025 3:21pm Obesity chronic April 16 3:21pm Osteoarthritis of knees, bilateral acute June 12, 2025 3:11pm [facility] Work Phone: 1(735) 338-210502-12-2025 Evaluation note* Diagnosis Onset Date Resolution Status Admit Date Osteoarthritis of knees, bilateral acute December 19, 2 025 3:39pm [facility] Work Phone: 1(469) 835-972301-02-2025 Telephone encounter Note* Telephone Encounter - Ivory Taveras RN - 11/08/2024 2:55 PM EST Patient calls and notified of results and providers instructions. Patient verbalizes understanding. Patient reports he will have lab completed at [facility] and call back sizer to February follow up to request order and have it faxed to [facility]. Ivory Taveras RN [facility]01-02-2025 Miscellaneous Notes* Telephone Encounter - Ivory Taveras RN - 11/08/2024 2:55 PM EST Patient calls and notified of results and providers instructions. Patient verbalizes understanding. Patient reports he will have lab completed at [facility] and call back sizer to February follow up to request order and have it faxed to [facility]. Ivory Taveras RN * Telephone Encounter - [...] he had his US on 11/03 at [facility]. Asking if PCP has received the results. Please advise. documented in this encounterProm[facility] Hospital01-02-2025 Telephone encounter Note * Telephone Encounter - Belle Abdi LPN - 11/08/2024 2:45 PM EST Message left for patient to return call and request to speak with a nurse to review provider's message. Belle Abdi LPN [facility]01-02-2025 Telephone encounter Note* Telephone Encounter - Jeff Perry MD - 11/08/2024 2:27 PM EST His ultrasound of the kidneys and bladder was normal. Nothing to explain small amount of protein and blood. With recent labs showing normal kidney function, would recommend rechecking UA at future OV. Recommend 6 month f/u in February. [facility]01-02-2025 Telephone encounter Note* Telephone Encounter - Ju Iverson LPN - 11/08/2024 11:18 AM EST Patient calling, states he had his US on 11/03 at [facility]. Asking if PCP has received the results. Please advise. [facility]12-24-2024 Telephone encounter Note* Telephone Encounter - Belle Abdi LPN - 10/30/2024 12:01 PM EST Phoned patient and reviewed results with him. Patient voiced understanding and he requested order be sent to [facility]. He will contact them for scheduling after [place]. Belle Abdi LPN [facility]12-24-2024 Miscellaneous Notes* Telephone Encounter - Belle Abdi LPN - 10/30/2024 12:01 PM EST Phoned patient and reviewed results with him. Patient voiced understanding and he requested order be sent to [facility]. He will contact them for scheduling after [place]. Belle Abdi LPN * Telephone Encounter - Jeff Perry MD - 10/30/2024 11:41 AM EST Received patient's repeat UA from [facility] which shows continued small amount of protein and small amount of blood. Protein is likely 2/2 diabetes. Will check US of kidneys for further workup. documented in this encounterPromedica [facility] Hospital12-24-2024 Telephone encounter Note * Telephone Encounter - Jeff Perry MD - 10/30/2024 11:41 AM EST Received patient's repeat UA from [facility] which shows continued small amount of protein and small amount of blood. Protein is likely 2/2 diabetes. Will check US of kidneys for further workup. [facility]10-18-2024 Telephone encounter Note* Telephone Encounter - Pooja Cutler LPN - 08/24/2024 11:02 AM EDT Spoke with pt gave information provided. Pt voices understanding. Lab for future ua was faxed to [facility]. [facility]10-18-[facility]24 Miscellaneous Notes* Telephone Encounter - Pooja Cutler LPN - 08/24/2024 11:02 AM EDT Spoke with pt gave information provided. Pt voices understanding. Lab for future ua was faxed to [facility]. * Telephone Encounter - Belle Abdi LPN - 08/22/2024 1:23 PM EDT Message left for patient to return call and speak with a nurse to review provider's message. Belle Abdi LPN * Telephone Encounter - Jeff Perry MD - 08/22/2024 12:07 PM EDT Labs completed at [facility] on 08/13 shows controlled DM with A1c of 6.6 and UA is negative for infection.Noted some protein in urine. Recheck UA in 1 month. No change in regimen. documented in this encounterPromedica [facility] Hospital10-16-2024 Telephone encounter Note * Telephone Encounter - Belle Abdi LPN - 08/22/2024 1:23 PM EDT Message left for patient to return call and speak with a nurse to review provider's message. Belle Abdi LPN [facility]10-16-[facility]24 Telephone encounter Note* Telephone Encounter - Jeff Perry MD - 08/22/2024 12:07 PM EDT Labs completed at [facility] on 08/13 shows controlled DM with A1c of 6.6 and UA is negative for infection.Noted some protein in urine. Recheck UA in 1 month. No change in regimen. [facility]10-09-[facility]24 History of Present illness Narrative* Charu Pérez APRN.DATA PROCESSING EQUIPMENT REPAIRER - 08/15/2024 5:00 PM EDT 08/15/2024 Patient presents with: Results: Needs form for work completed SUBJECTIVE: This is a 59 year old that is here today for Above Complaints. DIABETES MELLITUS: Follows with [facility] endocrinology with last appointment last month. Last [...] month per patient Atrial fib: follows with [facility] cardiology office visit on 02/21/2024. No medication [...] adult DM II (diabetes mellitus, type II) ([facility]) Dr. Kike Mccoy. History of atrial [...] follow-up with cardiology as recommended Charu Pérez APRN.DATA PROCESSING EQUIPMENT REPAIRER Prescription instructions reviewed with patient as applicable. [...] Level: 4 - Moderate documented in this encounterPromedica Memorial Hospital10-09-2024 NoteHNO ID: [id number] Author: CHARU PÉREZ APRN.CNP Service: ? Author Type: Nurse Practitioner Type: Progress Notes Filed: 08/15/2024 16:56 Note Text: 08/15/2024 Patient presents with: Results: Needs form for work completed SUBJECTIVE: This is a 59 year old that is here today for Above Complaints. DIABETES MELLITUS: Follows with [facility] endocrinology with last appointment last month. Last [...] month per patient Atrial fib: follows with [facility] cardiology office visit on 02/21/2024. No medication [...] adult DM II (diabetes mellitus, type II) ([facility]) Dr. Kike Mccoy. History of atrial [...] 08/26/2026 DTaP,Tdap,Td Vaccine(7 - (more content not included)...[facility]09-25-2024 Telephone encounter Note* Telephone Encounter - [...] Lui RN August 01, 2024 11:45 AM [facility]09-25-2024 Miscellaneous Notes* Telephone Encounter - Stephanie [...] 01, 2024 11:45 AM documented in this encounterPromedica Memorial Hospital09-24-2024 Telephone encounter Note * Telephone Encounter - Shannon Ramirez MA - 07/31/2024 9:28 AM EDT Pt notified. Orders faxed to [facility]. Shannon Ramirez MA [facility]09-24-2024 Miscellaneous Notes* Telephone Encounter - Shannon Ramirez MA - 07/31/2024 9:28 AM EDT Pt notified. Orders faxed to [facility]. Shannon Ramirez MA * Telephone Encounter - Jeff Perry MD - 07/31/2024 9:06 AM EDT Orders approved. * Telephone Encounter - Belle Barber - 07/30/2024 10:15 AM EDT Patient has apt 08/15 and requesting a PSA order to be sent to [facility] (because he works there) Please advise documented in this encounterPromedica Memorial Hospital09-24-2024 Telephone encounter Note * Telephone Encounter - Jeff Perry MD - 07/31/2024 9:06 AM EDT Orders approved. [facility]09-23-2024 Telephone encounter Note* Telephone Encounter - Belle Barber - 07/30/2024 10:15 AM EDT Patient has apt 10/9 and requesting a PSA order to be sent to [facility] (because he works there) Please advise [facility] Work Phone: 1(222) 661-627710-09-2023 History of Present illness Narrative* Jeff Perry [...] pleasure in doing things. Reviewed labs through [facility]. Past medical history, appointments, medications, allergies reviewed. Previous Medical History PAST MEDICAL HISTORY Diagnosis Date Biceps tendon rupture bilateral s/p repair Class 1 obesity due to excess calories with serious comorbidity and body mass index (BMI) of 34.0 to 34.9 in adult DM II (diabetes mellitus, type II) ([facility]) Dr. Kike Mccoy. History of atrial [...] scheduled. Jeff Perry MD documented in this encounterPromedica Memorial Hospital04-10-2023 Miscellaneous Notes* Telephone Encounter - Prisca [...] you. Janett Rich LPN documented in this encounterPromedica Memorial Hospital03-20-2023 Miscellaneous Notes* Telephone Encounter - Caitie Martinez [facility] [place]24/[place] 10:58 AM EDT Patient has [...] patient. Caitie Martinez [employer] documented in this encounterPromedica Memorial Hospital01-04-2023 Miscellaneous Notes* Telephone Encounter - Marcela [...] advise. Flores Peña Pss documented in this encounterPromedica Memorial Hospital10-05-2022 History of Present illness Narrative* Tish Sharma LPN - 08/11/2022 4:17 PM EDT As requested; Lab ordered today faxed to [facility] lab & referral for dermatology faxed to [facility] [place] office. Tish Sharma LPN * Charu Pérez, DELIA.DATA PROCESSING EQUIPMENT REPAIRER - 08/11/2022 3:43 PM EDT 08/11/2022 Patient [...] lipids, and vitamin D level completed through [facility]. Was told vitamin D a littlelow and to take 1000 units of vitamin D daily Recent blood work reviewed with patient PAST MEDICAL HISTORY Diagnosis Date Biceps tendon rupture bilateral s/p repair Class 1 obesity due to excess calories with serious comorbidity and body mass index (BMI) of 34.0 to 34.9 in adult DM II (diabetes mellitus, type II) ([facility]) Hyperlipidemia LDL goal <100 09/04/2015 Hypertension, [...] not will fax xray order over to [facility] - continue current OTC treatments - XR [...] which included preparing to see the patient, [id number] patient care, completing clinical documentation, obtaining and/or reviewing separately obtained history, performing a medically appropriate examination, counseling and educating the pat ient/family/caregiver, and ordering medications, tests, or procedures. documented in this encounterPromedica Memorial Hospital09-23-2022 Miscellaneous Notes* Telephone Encounter - Shannon Ramirez Ma - 07/30/2022 9:47 AM EDT Order faxed to [facility]. Shannon Ramirez Ma * Telephone Encounter - hCaru Pérez APRN.CNP - 07/30/2022 7:45 AM EDT Please fax order for PSA blood work to [facility]. Charu Péerz APRN.CNP * Telephone Encounter - Shraddha Nolan LPN - 07/27/2022 2:27 PM EDT Pt called and states he has lab orders at the hospital to have lab work done. He is requesting a PSA test be done. Please fax order to [facility] lab. Shraddha Nolan LPN documented in this encounterPromedica Memorial Hospital08-12-2022 Miscellaneous Notes* Telephone Encounter - Aruna Nolan [...] patient. Aruna Nolan Pss documented in this encounterProm[facility]22 Miscellaneous Notes* Telephone Encounter - Trinity [...] you. Trinity Burns RN documented in this encounterPromedica [facility] Hospital05-02-2022 Miscellaneous Notes* Telephone Encounter - Tish Sharma LPN - 03/08/2022 3:45 PM EDT Patient notified. Tish Sharma LPN * Telephone Encounter - Charu Pérez APRN.CNP - 03/08/2022 2:58 PM EDT Please call patient and let him know his blood work looks good. Continue current medications. Charu Pérez APRN.SYLVIE documented in this encounterPromedica [facility] Hospital04-13-2022 Miscellaneous Notes* Telephone Encounter - Ivory Taveras RN - 02/17/2022 3:19 PM EDT Patient calls to report that Dr. Kike Mccoy didn't receive referral packet previously sent. Re-faxedreferral, demographics, labs, medications, and last visit note per request to [phone]. Ivory Taveras RN documented in this encounterPromedica [facility] Hospital03-23-2022 Miscellaneous Notes* Telephone Encounter - Trinity Burns RN - 01/27/2022 10:55 AM EDT Patient requesting lab orders be faxed to [facility]. Faxed as requested to [phone]. Trinity Burns RN documented in this encounterPromedica Memorial Hospital03-23-2022 Miscellaneous Notes* Telephone Encounter - Trinity [...] notify patient. Aarti Moreau documented in this encounterPromedica Memorial Hospital01-26-2022 Miscellaneous Notes* Telephone Encounter - Tish Sharma LPN - 12/02/2021 12:27 PM EST Pt made aware and verbalized understanding. Tish Sharma LPN * Telephone Encounter - Charu Pérez APRN.CNP - 12/02/2021 11:51 AM EST I think I forgot to tell patient to start ASA 81 mg daily. Please call and let him know. Charu Pérez APRN.CNP documented in this encounterPromedica Memorial Hospital06-28-2017 History of Past illness Narrative* Problem Noted Date Resolved Date Benign hypertension 05/04/2017 05/04/2017 Impaired fasting glucose 07/04/2014 015 Shoulder separation 05/20/2010 09/04/2015 Sterilization 07/08/2009 09/04/2015 Dysmetabolic syndrome X 02/06/2008 08/04/20 15 documented as of this encounter (statuses as of 01/27/2022) [facility] of Past illness Narrative* Problem Noted Date Resolved Date Benign hypertension 05/04/2017 05/04/2017 Impaired fasting glucose 07/04/2014 015 Shoulder separation 05/20/2010 09/04/2015 Sterilization 07/08/2009 09/04/2015 Dysmetabolic syndrome X 02/06/2008 08/04/20 15 documented as of this encounter (statuses as of 01/27/2022) [facility] of Past illness Narrative* Problem Noted Date Resolved Date Benign hypertension 05/04/2017 05/04/2017 Impaired fasting glucose 07/04/2014 015 Shoulder separation 05/20/2010 09/04/2015 Sterilization 07/08/2009 09/04/2015 Dysmetabolic syndrome X 02/06/2008 08/04/20 15 documented as of this encounter (statuses as of 02/17/2022) [facility] of [facility] illness Narrative* Problem Noted Date Resolved Date Benign hypertension 05/04/2017 05/04/2017 Impaired fasting glucose 07/04/2014 015 Shoulder separation 05/20/2010 09/04/2015 Sterilization 07/08/2009 09/04/2015 Dysmetabolic syndrome X 02/06/2008 08/04/20 15 documented as of this encounter (statuses as of 04/12/2022) [facility] of [facility] illness Narrative* Problem Noted Date Resolved Date Benign hypertension 05/04/2017 05/04/2017 Impaired fasting glucose 07/04/2014 015 Shoulder separation 05/20/2010 09/04/2015 Sterilization 07/08/2009 09/04/2015 Dysmetabolic syndrome X 02/06/2008 08/04/20 15 documented as of this encounter (statuses as of 05/26/2022) [facility] Narrative* Problem Noted Date Resolved Date Benign hypertension 05/04/2017 05/04/2017 Impaired fasting glucose 07/04/2014 015 Shoulder separation 05/20/2010 09/04/2015 Sterilization 07/08/2009 09/04/2015 Dysmetabolic syndrome X 02/06/2008 08/04/20 15 documented as of this encounter (statuses as of 05/28/2022) [facility] Narrative* Problem Noted Date Resolved Date Benign hypertension 05/04/2017 05/04/2017 Impaired fasting glucose 07/04/2014 015 Shoulder separation 05/20/2010 09/04/2015 Sterilization 07/08/2009 09/04/2015 Dysmetabolic syndrome X 02/06/2008 08/04/20 15 documented as of this encounter (statuses as of 06/21/2022) [facility] Narrative* Problem Noted Date Resolved Date Benign hypertension 05/04/2017 05/04/2017 Impaired fasting glucose 07/04/2014 015 Shoulder separation 05/20/2010 09/04/2015 Sterilization 07/08/2009 09/04/2015 Dysmetabolic syndrome X 02/06/2008 08/04/20 15 documented as of this encounter (statuses as of 07/30/2022) [facility] of [facility] Narrative* Problem Noted Date Resolved Date Benign hypertension 05/04/2017 05/04/2017 Impaired fasting glucose 07/04/2014 015 Shoulder separation 05/20/2010 09/04/2015 Sterilization 07/08/2009 09/04/2015 Dysmetabolic syndrome X 02/06/2008 08/04/20 15 documented as of this encounter (statuses as of 08/11/2022) [facility] of [facility] Narrative* Problem Noted Date Resolved Date Benign hypertension 05/04/2017 05/04/2017 Impaired fasting glucose 07/04/2014 015 Shoulder separation 05/20/2010 09/04/2015 Sterilization 07/08/2009 09/04/2015 Dysmetabolic syndrome X 02/06/2008 08/04/20 15 documented as of this encounter (statuses as of 11/11/2022) [facility] of [facility] Narrative* Problem Noted Date Resolved Date Benign hypertension 05/04/2017 05/04/2017 Impaired fasting glucose 07/04/2014 015 Shoulder separation 05/20/2010 09/04/2015 Sterilization 07/08/2009 09/04/2015 Dysmetabolic syndrome X 02/06/2008 08/04/20 15 documented as of this encounter (statuses as of 01/25/2023) [facility] of [facility] illness Narrative* Problem Noted Date Resolved Date Benign hypertension 05/04/2017 05/04/2017 Impaired fasting glucose 07/04/2014 015 Shoulder separation 05/20/2010 09/04/2015 Sterilization 07/08/2009 09/04/2015 Dysmetabolic syndrome X 02/06/2008 08/04/20 15 documented as of this encounter (statuses as of 03/15/2023) [facility] of [facility] illness Narrative* Problem Noted Date Diagnosed Date Resolved Date Benign hypertension 05/04/2017 05/04/20 17 Impaired fasting glucose 07/04/2014 Shoulder separation 05/20/2010 09/04/20 15 Sterilization 07/08/2009 09/04/2015 Dysmetabolic syndrome X 02/06/200807/09 documented as of this encounter (statuses as of 08/16/2023) [facility] complaint+Reason for visit Narrative* Chief Complaint COVID-19 CHEST PAIN CHEST PAIN CHEST PAIN Amb Documentation BP ISSUES 6 PAGES OF ORDERS Reason for Visit Essential hypertensi on Hyperlipidemia Shortness of breath [facility] Work Phone: Evaluation note* Diagnosis Type 2 diabetes mellitus without complication, without long-term current use of insulin (HCC) documented in this encounter [facility]* Diagnosis Onset Date Resolution Status Essential hypertension acute Hyperlipidemia acute Shortness of breath acute [facility] Work Phone: Evaluation note* Diagnosis Hypertension, essential Unspecified essential hypertension documented in this encounter [facility] note* Diagnosis Type 2 diabetes mellitus without complication, without long-term current use of insulin (HCC) documented in this encounter [facility] note* Diagnosis Screening for prostate cancer- Primary Special screening for malignant neoplasm of prostate documented in this encounter [facility]* Diagnosis Onset Date Resolution Status Diabetes mellitus type II, controlled chronic Essential hypertension chron ic Hyperlipidemia [facility] Work Phone: Evaluation note* Diagnosis Hypertension, essential- Primary Unspecified essential hypertension Family history of skin cancer Family history of other specified malignant neoplasm Acute pain of right knee Type 2 diabetes mellitus without complication, without long-term current use of insulin (HCC) Hyperlipidemia LDL goal <100 Other and unspecified hyperlipidemia [facility] Diagnosis Onset Date Resolution Status Essential hypertension chron ic Hyperlipidemia chronic Acute hyperglycemia acute Atrial fibrillation with rapid ventricular response acute Dehydration, mild acute [facility] Work Phone: Evaluation note* Diagnosis Onset Date Resolution Status Essential hypertension chron ic Hyperlipidemia chronic Acute hyperglycemia acute Atrial fibrillation with rapid ventricular response acute COVID acute Dehydration, mild acute [facility] Work Phone: Evaluation note* Diagnosis Hypertension, essential Unspecified essential hypertension documented in this encounter [facility]* Diagnosis Hypertension, essential Unspecified essential hypertension documented in this encounter [facility] note* Diagnosis Type 2 diabetes mellitus without complication, without long-term current use of insulin (HCC) [facility] Diagnosis Onset Date Resolution Status Diabetes mellitus type II, controlled chronic Essential hypertension chron ic Hyperlipidemia chronic Obesity chronic PAF (paroxysmal atrial fibrillation) acute Essential hypertension chron ic Hyperlipidemia [facility] Work Phone: Evaluation note* Diagnosis Annual physical [...] unspecified type (HCC) documented in this encounter [facility] noteNo assessment information availableWMercy [facility] Work Phone: Evaluation note* Diagnosis Type 2 diabetes mellitus without complication, without long-term current use of insulin (HCC)- Primary Screening for prostate cancer Special screening for malignant neoplasm of prostate documented in this encounter [facility] note* Diagnosis Hypertension, essential Unspecified essential hypertension documented in this encounter [facility] note* Diagnosis Hypertension, essential- Primary Unspecified essential hypertension Type 2 diabetes mellitus without complication, without long-term current use of insulin (HCC) Hyperlipidemia LDL goal <100 Other and unspecified hyperlipidemia Atrial fibrillation, unspecified type (HCC) documented in this encounter [facility] note* Diagnosis Proteinuria, unspecified type- Primary documented in this encounter [facility] note* Diagnosis Proteinuria, unspecified type- Primary documented in this encounter [facility] note* Diagnosis Microscopic hematuria- Primary documented in this encounter [facility] note* Diagnosis Annual physical exam- Primary Routine general medical examination at a [facility] care facility Type 2 diabetes mellitus without complication, without long-term current use of insulin (HCC) Atrial fibrillation, unspecified type (HCC) Hyperlipidemia LDL goal <100 Other and unspecified hyperlipidemia Hypertension, essential Unspecified essential hypertension Screening for depression Encounter for screening examination for other mental health and behavioral disorders documented in this encounter [facility] for referral (narrative)* Diagnostic Procedure Only (Routine) - Pending Review Specialty Diagnoses / Procedures Referred By Sarah epstein Referred To Contact XR IMAGING Diagnoses Acute pain of right knee Procedures XR KNEE GENERAL 4V AP BOTH/PA BOTH/LAT/MERC RIGHT RADIOLOGIC EXAM KNEE COMPLETE 4/MORE VIEWS Charu Pérez APRN.DATA PROCESSING EQUIPMENT REPAIRER [address] [place] [address] Xr Imaging Referral ID Status Reason Start Date Expiration Date Visits Requested Visits Authorized [id number] Pending Review Auto-Generat ed Referral 08/11/2022 09/10/2023 1 1 * Transition of Care (Routine) - Ref Not Required Specialty Diagnoses / Procedures Referred By Sarah epstein Referred To Contact Dermatology Diagnoses Family history of skin cancer Procedures CONSULT TO DERMATOLOGY NataliyalogCharu diaz APRN.CNP [address] [place] [address] Referral ID Status Reason Start Date Expiration Date Visits Requested Visits Authorized [id number] Ref Not Required PCP Requested Referral 08/11/2022 08/11/2023 1 1 [facility] for referral (narrative)* Diagnostic Procedure Only (Routine) - New Request Specialty Diagnoses / Procedures Referred By Contac t Referred To Contact US IMAGING Diagnoses Proteinuria, unspecified type Procedures US KIDNEY/BLADDER US RETROPERITONEAL REAL TIME W/IMAGE COMPLETE Jeff Perry MD [address] [place] [address] [place] [address] Referral ID Status Reason Start Date Expiration Date Visits Requested Visits Authorized [id number] New Request Auto-Generat ed Referral 4 11/29/2025 1 1 [facility] for referral (narrative)No reason for referral information availableBluffton [facility] Work Phone: Family History No Family [...] No June 03, 2020 10:28am Power of Care Manager No June 03 0 10:28am Advance Directive Response Recorded Date/ Time Advance Directives No November 22, 2016 2:20pm Living Will No October 22, 022 10:42pm Power of Care Manager No October 22, 2022 10:42pm Advance Directive Response Recorded Date/ Time Advance Directives No November 22, 2016 2:20pm Living Will No October 23, 2 022 2:01am Power of Care Manager No October 23, 2022 2:01am Advance Directive Response Recorded Date/ Time Advance Directives No November 22, 2016 3:20pm Living Will No October 23, 2 022 3:01am Power of Care Manager No October 23, 2022 3:01am Advance Directive Response Recorded Date/ Time Advance Directives No March 19 4 11:57am Chief Complaint and Reason for Visit Chief Complaint 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, 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, 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 Reason [...] or prosecute any alcohol or drug abuse patient.[facility] HospitalIn the event this information is protected by the Federal Confidentiality of Alcohol and Drug Abuse Patient Records regulations: The Federal rules restrict any use of the information to criminally investigate or prosecute any alcohol or drug abuse patient.[facility] HospitalIn the event this information is protected by the Federal Confidentiality of Alcohol and Drug Abuse Patient Records regulations: The Federal rules restrict any use of the information to criminally investigate or prosecute any alcohol or drug abuse patient.[facility] HospitalIn the event this information is protected by the Federal Confidentiality of Alcohol and Drug Abuse Patient Records regulations: The Federal rules restrict any use of the information to criminally investigate or prosecute any alcohol or drug abuse patient.[facility] HospitalIn the event this information is protected by the Federal Confidentiality of Alcohol and Drug Abuse Patient Records regulations: The Federal rules restrict any use of the information to criminally investigate or prosecute any alcohol or drug abuse patient.[facility] HospitalIn the event this information is protected by the Federal Confidentiality of Alcohol and Drug Abuse Patient Records regulations: The Federal rules restrict any use of the information to criminally investigate or prosecute any alcohol or drug abuse patient.[facility] HospitalIn the event this information is protected by the Federal Confidentiality of Alcohol and Drug Abuse Patient Records regulations: The Federal rules restrict any use of the information to criminally investigate or prosecute any alcohol or drug abuse patient.[facility] HospitalIn the event this information is protected by the Federal Confidentiality of Alcohol and Drug Abuse Patient Records regulations: The Federal rules restrict any use of the information to criminally investigate or prosecute any alcohol or drug abuse patient.[facility] HospitalIn the event this information is protected by the Federal Confidentiality of Alcohol and Drug Abuse Patient Records regulations: The Federal rules restrict any use of the information to criminally investigate or prosecute any alcohol or drug abuse patient.[facility] HospitalIn the event this information is protected by the Federal Confidentiality of Alcohol and Drug Abuse Patient Records regulations: The Federal rules restrict any use of the information to criminally investigate or prosecute any alcohol or drug abuse patient.[facility] HospitalIn the event this information is protected by the Federal Confidentiality of Alcohol and Drug Abuse Patient Records regulations: The Federal rules restrict any use of the information to criminally investigate or prosecute any alcohol or drug abuse patient.[facility] HospitalIn the event this information is protected by the Federal Confidentiality of Alcohol and Drug Abuse Patient Records regulations: The Federal rules restrict any use of the information to criminally investigate or prosecute any alcohol or drug abuse patient.[facility] HospitalIn the event this information is protected by the Federal Confidentiality of Alcohol and Drug Abuse Patient Records regulations: The Federal rules restrict any use of the information to criminally investigate or prosecute any alcohol or drug abuse patient.[facility] HospitalIn the event this information is protected by the Federal Confidentiality of Alcohol and Drug Abuse Patient Records regulations: The Federal rules restrict any use of the information to criminally investigate or prosecute any alcohol or drug abuse patient.[facility] HospitalIn the event this information is protected by the Federal Confidentiality of Alcohol and Drug Abuse Patient Records regulations: The Federal rules restrict any use of the information to criminally investigate or prosecute any alcohol or drug abuse patient.[facility] HospitalIn the event this information is protected by the Federal Confidentiality of Alcohol and Drug Abuse Patient Records regulations: The Federal rules restrict any use of the information to criminally investigate or prosecute any alcohol or drug abuse patient.[facility] HospitalIn the event this information is protected by the Federal Confidentiality of Alcohol and Drug Abuse Patient Records regulations: The Federal rules restrict any use of the information to criminally investigate or prosecute any alcohol or drug abuse patient.[facility] HospitalIn the event this information is protected by the Federal Confidentiality of Alcohol and Drug Abuse Patient Records regulations: The Federal rules restrict any use of the information to criminally investigate or prosecute any alcohol or drug abuse patient.[facility] HospitalIn the event this information is protected by the Federal Confidentiality of Alcohol and Drug Abuse Patient Records regulations: The Federal rules restrict any use of the information to criminally investigate or prosecute any alcohol or drug abuse patient.[facility] HospitalIn the event this information is protected by the Federal Confidentiality of Alcohol and Drug Abuse Patient Records regulations: The Federal rules restrict any use of the information to criminally investigate or prosecute any alcohol or drug abuse patient.[facility] Reason for Visit (unrecogniz ed section and content) Reason Onset Date Comments Refill Request 01/27/2022 Reason Comments Request to fax lab orders to [facility] Reason Comments Fax requested Reason Onset Date [...] 40-54 MIN 4C EST Self Podlogar, DELIA Box.DATA PROCESSING EQUIPMENT REPAIRER [address] [place] [address] Referral ID Status Reason Start Date Expiration Date Visits Re quested Visits Authorized [id number] Closed 07/29/2022 11/06/2022 1 1 Reason Onset Date Comments Refill Request 11/09/2022 Reason Onset Date Comments Refill Request 02/11/2023 Refill Request 03/15/2023 Reason Comments Physical Labs completed last week Reason Comments Orders PSA Reason Onset Date Comments Refill Request 08/01/2024 Reason Comments Results Needs form for work completed Reason Comments Results Reason Comments Physical Care Teams (unrecognized sec tion and content) Content Producer Relationship Specialty Start Date End Date Jeff Perry MD [address] [place], [place] [phone] PCP - General Family Practice 07/25/21 Content Producer Relationship Specialty Start Date End Date Jeff Perry MD [address] [place], [place] [id number] PCP - General Family Practice 07/25/21 Content Producer Relationship Specialty Start Date End Date Jeff Perry MD [address] [place], [place] [address] [phone] PCP - General Family Practice 07/25/21 Content Producer Relationship Specialty Start Date End Date Jeff Perry MD [address] [place], [place] [id number] PCP - General Family Practice 07/25/21 Content Producer Relationship Specialty Start Date End Date Jeff Perry MD [address] [facility], [place] [id number] PCP - General Family Medicine 07/25/21 Content Producer Relationship Specialty Start Date End Date Jeff Perry MD [address] [facility], [place] [id number] PCP - General Family Medicine 07/25/21 Content Producer Relationship Specialty Start Date End Date Jeff Perry MD [address] [facility], [place] [address] PCP - General Family Medicine 07/25/21 Content Producer Relationship Specialty Start Date End Date Jeff Perry MD [address] [facility], [place] [id number] PCP - General Family Medicine 07/25/21 Team [...] PA Attending Provider, Referr ing Provider Active Content Producer Relationship Specialty Start Date End Date Jeff Perry MD [address] [facility], [place] [id number] PCP - General Family Medicine 07/25/21 Content Producer Relationship Specialty Start Date End Date Jeff Perry MD [address] [facility], [place] [id number] PCP - General Family Medicine 07/25/21 Content Producer Relationship Specialty Start Date End Date Jeff Perry MD [address] [facility], [place] [id number] PCP - General Family Medicine 07/25/21 Content Producer Relationship Specialty Start Date End Date Jeff Perry MD [address] [facility], [place] [id number] PCP - General Family Medicine 07/25/21 Podlogar, SAADIA BoxN.DATA PROCESSING EQUIPMENT REPAIRER [address] [place] [address] Metal Extrusion Supervisor [facility] Medicine 10/13/24 Content Producer Relationship Specialty Start Date End Date Jeff Perry MD [address] [facility], [place] [id number] PCP - General Family Medicine 07/25/21 Podlogar, Charu, ENGRAVING SUPERVISOR.DATA PROCESSING EQUIPMENT REPAIRER [address] [place], [place] [id number] Metal Extrusion Supervisor Family Medicine 10/13/24 Team Status: Inactive Member [...] July 17, 2025 End: July 17, 2025 Content Producer Relationship Specialty Start Date End Date Jeff Perry MD [address] [place], [place] [id number] PCP - General Family Medicine 07/25/21 Charu Pérez APRN.DATA PROCESSING EQUIPMENT REPAIRER [address] [place], [place] [id number] Metal Extrusion Supervisor Family [facility] 10/13/24 Jabier Giron APRN.DATA PROCESSING EQUIPMENT REPAIRER [address] [place], [place] [id number] Metal Extrusion SupervisorUchealth Highlands [facility] 04/18/25 Goals (unrecognized section and content) Goals [...] section and content) DATE CREATED AUTHOR 07/28/2025 [facility] DATE CREATED AUTHOR AUTHOR'S JENNA KAPLAN 07/31/2025 [facility] FOR RECORDS PERTAINING TO PATIENTS WHO [...] BE BASED ON THE PRIMARY CLINICAL RECORDS. [employer] provides no warranty or guarantee of the accuracy or completeness of information in this document.
== END | disposition home or self-care (01) ==
LOC: CT 18:53
PROVIDERS: PCP Family Medicine; Referring Provider Orthopaedic Surgery; Visit Provider Orthopaedic Surgery
DX: M17.0 Bilateral primary osteoarthritis of knee (principal)
CPT/HCPCS: 73700

== ENCOUNTER 2025-08-20 08:33 | Day surgery (SDC) | payer OTHER, SELFPAY ==
--- NOTE | 2025-07-30 07:12 | EKG12_ITS ---
Test Reason : PREOP Blood Pressure : */* mmHG Vent. Rate : 57 BPM Atrial Rate : 57 BPM P-R Int : 84 ms QRS Dur : 96 ms QT Int : 418 ms P-R-T Axes : 0 11 18 degrees QTcB Int : 406 ms Sinus bradycardia with short WA Otherwise normal ECG When compared with ECG of 23-Oct-2022 13:49, Sinus rhythm has replaced Ectopic atrial rhythm Nonspecific T wave abnormality, improved in Inferior leads Nonspecific T wave abnormality no longer evident in Anterolateral leads Confirmed by NELLY GONZALEZ, SABRINA ([id number]), newspaper or periodical editor HALEY DONALD ([id number]) on 07/30/2025 1:51:02 PM Referred By: Jose Martini Confirmed By: SABRINA VILLEGAS MD
--- NOTE | 2025-07-31 12:49 | PAT.ANE_ITS ---
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 When Was Last Pacemaker Check QUESTION #4 FULL TEXT: You/Your Family Experience fever (hyperthermia) with Anesthesia Last Oral Intake Last Oral intake: Last Oral Intake NPO since Meds taken in AM with sips of water? Meds patient instructed to take am of surgery PONV PONV - environmental remediation engineer: PONV - environmental remediation engineer Female No 07/25/25 13:04 HX of Motion Sickness No 07/25/25 13:04 HX of N/V After Surgery No 07/25/25 13:04 Non-Smoker Yes 07/25/25 13:04 Duration of Surgery greater Yes 07/25/25 13:04 than 60 minutes Number of Risk Factors 2 07/25/25 13:04 PONV Score Moderate Risk 07/25/25 13:04 Height & Weight Height & Weight: Anesthesia: Height & Weight Height 5 ft 10 in 07/17/25 14:07 Respiratory Assessment Respiratory Assessment - environmental remediation engineer: Respiratory Tract Infection Hx - environmental remediation engineer Hx Respiratory Tract Infection No 07/25/25 13:04 STOP Sleep Apnea STOP Sleep Apnea - environmental remediation engineer: STOP Sleep Apnea - environmental remediation engineer Hx Hypertension Yes: CONTROLLED WITH MED 07/25/25 13:04 Hx Sleep Apnea Yes 07/25/25 13:04 CPAP Yes: NONCOMPLIANT FOR YRS 07/25/25 13:04 BIPAP No 07/25/25 13:04 Do you snore loudly (louder Yes 07/25/25 13:04 than talking or can be heard Do you often feel tired/ fatigued/ sleepy during daytime? Has anyone observed you stop breathing during sleep? STOP Results Positive 07/25/25 13:04 QUESTION #5 FULL TEXT : Do you snore loudly (louder than talking or can be heard through closed doors)? Tobacco Use History Tobacco Use History - environmental remediation engineer: Tobacco Use History - environmental remediation engineer Tobacco Use Smoking Status Never smoker 07/25/25 13:04 Hx Tobacco Use No 07/25/25 13:04 Years Smoking Packs Smoked per Day Smoking Cessation Date was within the last 15 years Hx Smoking Cessation Date Hx Smoking Cessation Counseling Hematologic Medial History Hematologic Hx - environmental remediation engineer: Hematologic Medical Hx - office sweeper Hx of Blood Transfusion No 07/25/25 13:04 Hx of Transfusion in last 3 No 07/25/25 13:04 Months Date of Last Transfusion (if within last 3 months) Ever experience any problems No 07/25/25 13:04 with transfusion(s)? Specify any problems Hx of Preganancy in last 3 N/A 07/25/25 13:04 Months Nurse Filling Out Transfusion DSCHRIBER 07/25/25 13:04 & Questions: Date: 07/25/25 07/25/25 13:04 Time: 13:06 07/25/25 13:04 Patient unable to answer at this time (ie. confused, unrespo /Reproduction History /Reproductive History - environmental remediation engineer: /Reproductive Hx- environmental remediation engineer Hx Now No 07/25/25 13:04 Gestational Age (in weeks): EDC: Hx Hx Para Hx Section SAB No 07/25/25 13:04 [facility] Medical History (Updated 07/25/25 @ 13:13 by Abby Morales) Wears glasses Alcohol use Arthritis Fatty liver High cholesterol Restless legs Dietary restriction Narcolepsy CPAP (continuous positive airway pressure) dependence Non-smoker History of pain when walking History of edema History of stress test History of echocardiogram Cardiology follow-up encounter History of atrial fibrillation Diabetes Obesity COVID Acute hyperglycemia Dehydration, mild Atrial fibrillation with rapid ventricular response Essential hypertension Hyperlipidemia PEÑA (nonalcoholic steatohepatitis) Diabetes mellitus type II, controlled Home Medications ?Medication ?Instructions ?Recorded ?Last Taken ?Type losartan 50 mg tablet 50 mg PO DAILY 90 days #90 t abs 01/28/25 Unknown Rx atorvastatin 40 mg tablet 40 mg PO MOTUWETHFR 07/25/25 Unknown History metformin 1,000 mg tablet 1,000 mg PO DAILY 07/25/25 U nknown History tirzepatide 5 mg/0.5 mL 5 mg subcut SA 07/25/25 Unkn own History subcutaneous pen injector (Mounjaro) Allergy/AdvReac Type Severity Reaction Status Date / Time lisinopril AdvReac Intermediate Dry Cough Verified 07/25/25 12:54 Family History Mother COPD (chronic obstructive pulmonary disease) Father Cancer CAD (coronary artery disease) Brother Diabetes AA (alcohol abuse) Surgical History (Updated 07/25/25 @ 13:13 by Abby Morales) History of shoulder surgery Injury of meniscus of left knee History of colonoscopy (08/26/16) History of vasectomy (08/01/09) Social History Smoking Status: Never smoker alcohol intake: current alcohol intake frequency: a few times a month Audit: Pertinent Findings Pertinent Findings EKG Perinent findings: EKG 07/30/2025. Sinus bradycardia with short NC. Oth erwise normal ECG Stress test pertinent findings: Stress test 12/08/2021. Exercise stress test which is suboptimal due to low exercise capacity. Hypertensive response to exercise Echo (EF%) pertinent findings: Echo 10/23/2022. Estimated ejection fraction is 55 to 60%. Normal LV systolic function. No change from prior echo in 12/07/2021 Consult pertinent findings: Cardiology note 02/21/2024. In February 26 patient went to ED in [place] with chest pain and dizziness. EF showed 55% with mild concentric low ventricular hypertrophy and normal wall motion abnormalities. He underwent stress test where he exercised to 4.6 metabolic equivalents with a hypertensive response to exercise with his blood pressure going up to 250 systolic. The test was terminated prematurely and he had his medications increased. On 10/23/2022 he was seen in the emergency department for palpitations and was noted to be in A-fib with RVR. Recently had COVID. Had an echo in hospital his ejection fraction was 50 to 60%. He was discharged home on 10/24/2022 on metoprolol and Eliquis. His Eliquis has been stopped. He has not had any recurrence that he is aware of. From a cardiac standpoint patient is doing well. Recommendation Anesthesia Recommendation Anesthesia recommendation: OPTIMIZED for anesthesia
[2025-08-07 08:42] LABS: Prothrombin Time (Protime)PT. 13.0 SECONDS (11.7-14.9)
[2025-08-07 08:43] LABS: Partial Thromboplast Time 25.4 Seconds (24.1-36.2)
[2025-08-07 08:51] LABS: Magnesium 2.1 mg/dL (1.5-2.2)
[2025-08-20] VITALS (15 sets, daily range): BP systolic 127–171; BP diastolic 69–86; PULSE 53–79; RESP 12–16; TEMP 36–36.8; O2SAT 93–99; BMI 33.7
[2025-08-20] MEDS: Lactated Ringers 1,000 ML 15 ML IV (09:14)
[2025-08-20] MEDS: Scopolamine 1mg/72hr Patch 1 PATCH TD (09:15)
[2025-08-20] MEDS: Magnesium 1 GM over 15 mins IV (09:17)
--- NOTE | 2025-08-20 09:49 | PRE.ANES_ITS ---
ASA Classification* ASA Classification ASA Classification: 3 Assessment & Plan Anesthesia* Anesthesia Assessment Anesthesia Assessment: Discussed sedation and/or anesthesia options, risks, benefits, and alternatives with patient/parents/legal guardian/POA. Questions invited. The patient/parents/legal guardian/POA seems to understand and agrees to proceed with anesthesia plan. Reviewed the physical assessment, medical history, allergy history and patient home medications list prior to surgery/procedure/anesthetic and documented any changes. Performed airway and anesthesia risk assessments. Anesthesia Type Anesthesia Type: Spinal and Block (Patient is consented for postop adductor block.) History Source History Obtained from:: Patient and Chart Anesthesia Focused Assessment* Temperature: 98.2 F Pulse Rate: 79 Blood Pressure: 171/85 Respiratory Rate: 16 Pulse Ox: 96 Oxygen Delivery Method: Room Air Airway Assessment Mouth opens: >3 cm Mallampati Score: III Teeth Condition: Caps/Crowns (Patient has a capped right molar.) Neck Range of motion (ROM): Limited ROM (Slight Decrease) Labs Anesthesia Preop lab: CBC WBC, (4.4-11.0) 6.6 K/mm3 07/19/25, 07:58 RBC, (4.6-6.2) 4.75 M/mm3 07/19/25, 07:58 Hgb, (13.0-16.5) 14.7 g/dL 07/19/25, 07:58 Hct, (40-54) 42.1 % 07/19/25, 07:58 Plt Count, (150-450) 301 K/mm3 07/19/25, 07:58 CHEMISTRY Potassium, (3.3-5.1) 4.1 mmol/L 07/19/25, 07:58 Sodium, (133-145) 139 mmol/L 07/19/25, 07:58 Magnesium, (1.5-2.2) 2.1 mg/dL 08/07/25, 07:45 Phosphorus, (2.7-4.5) 2.8 mg/dL 07/19/25, 07:58 BUN, (4-19) 15 mg/dL 07/19/25, 07:58 Creatinine, (0.70-1.20) 0.89 mg/dL 07/19/25, 07:58 Glucose, (70-99) 150 mg/dL H 07/19/25, 07:58 POC Glucose, (74-106) 250 mg/dL H Today, 09:11 TSH, (0.300-4.200) 1.700 uIU/mL 07/19/25, 07:57 COAG PT, (11.7-14.9) 13.0 SECONDS 08/07/25, 07:46 Pre-Assessment Diagnosis/Proposed Procedure Planned Operative Procedure(s): Left total knee replacement Anesthesia History Anesthesia History - human resources training manager: Anesthesia History - human resources training manager Hx Hospitalization No 07/25/25 13:04 Any Problems With Anesthesia No 07/25/25 13:04 Cholinesterase deficiency No 07/25/25 13:04 You/Your Family Experience No 07/25/25 13:04 fever (hyperthermia) with Relationship Recent Exposure to Contagious No 08/20/25 09:05 Disease Does patient have nerve No 07/25/25 13:04 stimulator Patient instructed to have device shut off --Does patient have Pacemaker No 08/20/25 09:05 or ICD? When Was Last Pacemaker Check QUESTION #4 FULL TEXT: You/Your Family Experience fever (hyperthermia) with Anesthesia Last Oral Intake Last Oral intake: Last Oral Intake NPO since 06:45 08/20/25 09:05 Meds taken in AM with sips of Yes 08/20/25 09:05 water? Meds patient instructed to see med list 08/20/25 09:05 take am of surgery Any additional information?: Yes NPO since: 06:45 (Patient had preop Ensure at 6:45 AM.) Meds taken in AM with sips of water?: Yes PONV PONV - human resources training manager: PONV - human resources training manager Female No 07/25/25 13:04 HX of Motion Sickness No 07/25/25 13:04 HX of N/V After Surgery No 07/25/25 13:04 Non-Smoker Yes 07/25/25 13:04 Duration of Surgery greater Yes 07/25/25 13:04 than 60 minutes Number of Risk Factors 2 07/25/25 13:04 PONV Score Moderate Risk 07/25/25 13:04 Height & Weight Height & Weight: Anesthesia: Height & Weight Height 5 ft 10 in 08/20/25 09:05 Weight: 106.7 kg 08/20/25 09:05 Body Mass Index (BMI) 33.7 08/20/25 09:05 Respiratory Assessment Respiratory Assessment - human resources training manager: Respiratory Tract Infection Hx - human resources training manager Hx Respiratory Tract Infection No 07/25/25 13:04 STOP Sleep Apnea STOP Sleep Apnea - human resources training manager: STOP Sleep Apnea - human resources training manager Hx Hypertension Yes: CONTROLLED WITH MED 07/25/25 13:04 Hx Sleep Apnea Yes 07/25/25 13:04 CPAP Yes: NONCOMPLIANT FOR YRS 07/25/25 13:04 BIPAP No 07/25/25 13:04 Do you snore loudly (louder Yes 07/25/25 13:04 than talking or can be heard Do you often feel tired/ fatigued/ sleepy during daytime? Has anyone observed you stop breathing during sleep? STOP Results Positive 07/25/25 13:04 QUESTION #5 FULL TEXT : Do you snore loudly (louder than talking or can be heard through closed doors)? Tobacco Use History Tobacco Use History - human resources training manager: Tobacco Use History - human resources training manager Tobacco Use Smoking Status Never smoker 07/25/25 13:04 Hx Tobacco Use No 07/25/25 13:04 Years Smoking Packs Smoked per Day Smoking Cessation Date was within the last 15 years Hx Smoking Cessation Date Hx Smoking Cessation Counseling Hematologic Medial History Hematologic Hx - human resources training manager: Hematologic Medical Hx - keyboard action assembler Hx of Blood Transfusion No 07/25/25 13:04 Hx of Transfusion in last 3 No 07/25/25 13:04 Months Date of Last Transfusion (if within last 3 months) Ever experience any problems No 07/25/25 13:04 with transfusion(s)? Specify any problems Hx of Preganancy in last 3 N/A 07/25/25 13:04 Months Nurse Filling Out Transfusion DSCHRIBER 07/25/25 13:04 & Questions: Date: 07/25/25 07/25/25 13:04 Time: 13:06 07/25/25 13:04 Patient unable to answer at this time (ie. confused, unrespo /Reproduction History /Reproductive History - human resources training manager: /Reproductive Hx- human resources training manager Hx Now No 07/25/25 13:04 Gestational Age (in weeks): EDC: Hx Hx Para Hx Section SAB No 07/25/25 13:04 Active Medications Active Medications: Current Medications Generic Name Dose Route Start Last Admin Trade Name Freq PRN Reason Stop Dose Admin Acetaminophen 1,000 mg 08/20/25 10:45 08/20/25 09:16 Acetaminophen 500 Mg Tablet PO 08/20/25 10:46 1,000 mg PREOP ONE Administration Celecoxib 400 mg 08/20/25 10:45 08/20/25 09:16 Celecoxib 200 Mg Capsule PO 08/20/25 10:46 400 mg PREOP ONE Administration Dexamethasone Sodium Phosphate 10 mg 08/20/25 10:45 Dexamethasone 10 Mg/Ml Vial IV 08/20/25 10:46 INTRAOP ONE Gabapentin 600 mg 08/20/25 10:45 08/20/25 09:16 Gabapentin 600 Mg Tablet PO 08/20/25 10:46 600 mg PREOP ONE Administration Cefazolin Sodium 2 gm/ Sodium 110 mls @ 150 mls/hr 08/20/25 10:45 Chloride IV 08/20/25 11:28 INTRAOP ONE Tranexamic Acid 1,000 mg/ 110 mls @ 660 mls/hr 08/20/25 10:45 Sodium Chloride IV 08/20/25 10:54 INTRAOP ONE Tranexamic Acid 1,000 mg/ 110 mls @ 660 mls/hr 08/20/25 10:45 Sodium Chloride IV 08/20/25 10:54 INTRAOP ONE Lactated Ringer's 1,000 mls @ 125 mls/hr 08/20/25 10:45 IV 08/20/25 18:44 .Q8H MATILDA Magnesium Sulfate 1 gm/ 102 mls @ 408 mls/hr 08/20/25 10:45 08/20/25 09:17 Dextrose IV 08/20/25 10:59 408 mls/hr PREOP ONE Administration Lactated Ringer's 1,000 mls @ 15 mls/hr 08/20/25 09:00 08/20/25 09:14 IV 15 mls/hr .Q48H MATILDA Administration Insulin Human Lispro 1 - 6 unit 08/20/25 10:45 08/20/25 09:35 Insulin Lispro 100 Unit/Ml Insuln.Pen SC 08/20/25 18:00 2 u Q4H PRN PRN Administration BG>/= 180, SEE PROTOCOL Protocol Scopolamine HBr 1 patch 08/20/25 10:45 08/20/25 09:15 Scopolamine 1mg/72hr Patch TD 08/20/25 10:46 1 patch PREOP ONE Administration [facility] Medical History Wears glasses Alcohol use Arthritis Fatty liver High cholesterol Restless legs Dietary restriction Narcolepsy CPAP (continuous positive airway pressure) dependence Non-smoker History of pain when walking History of edema History of stress test History of echocardiogram Cardiology follow-up encounter History of atrial fibrillation Diabetes Obesity COVID Acute hyperglycemia Dehydration, mild Atrial fibrillation with rapid ventricular response Essential hypertension Hyperlipidemia PEÑA (nonalcoholic steatohepatitis) Diabetes mellitus type II, controlled Home Medications ?Medication ?Instructions ?Recorded ?Last Taken ?Type losartan 50 mg tablet 50 mg PO DAILY 90 days #90 t abs 01/28/25 08/20/25 06:00 Rx atorvastatin 40 mg tablet 40 mg PO MOTUWETHFR 07/25/25 Unknown History metformin 1,000 mg tablet 1,000 mg PO DAILY 07/25/25 1 History tirzepatide 5 mg/0.5 mL 5 mg subcut SA 07/25/25 1003/01 History subcutaneous pen injector (Mounjaro) Allergy/AdvReac Type Severity Reaction Status Date / Time lisinopril AdvReac Intermediate Dry Cough Verified 08/20/25 09:04 Family History Mother COPD (chronic obstructive pulmonary disease) Father Cancer CAD (coronary artery disease) Brother Diabetes AA (alcohol abuse) Surgical History History of shoulder surgery Injury of meniscus of left knee History of colonoscopy (08/26/16) History of vasectomy (08/01/09) Social History Smoking Status: Never smoker alcohol intake: current alcohol intake frequency: a few times a month Review of Systems (Anesthesia) ROS Narrative System reviewed and no additional complaints, except as documented.
--- NOTE | 2025-08-20 09:50 | PCM.HP.BLA ---
History and Physical Date of Admission: 08/20/25 [facility] [address] [place] [address] OFFICE VISIT Date of Service: 08/07/25 MR#: [id number] Acct: [id number] Name: NORY ZAPIEN Rep #: [id number] : 1965 Provider: Dr. Jose Martini, DO Age/Sex: 60/M Location: [facility] [place] Status: Signed Intake Vital Signs 07/17/2514:07 08/07/2515:15 Height 5 ft 10 in 5 ft 10 in Weight: 231 lb 8 oz BMI 33.2 Intake Visit Reasons: left knee Chief Complaint: Iovera treatment Accompanied by: Self Is patient in pain?: Yes Pain scale (1-10): 5 Allergies lisinopril Adverse Reaction (Intermediate, Verified 08/07/25 15:16) Dry Cough Medications ?Medication ?Instructions ?Recorded ?Confirmed ?Type losartan 50 mg tablet 50 mg PO DAILY 90 days #90 tabs 01/28/25 08/07/25 Rx atorvastatin 40 mg tablet 40 mg PO MOTUWETHFR 07/25/25 08/07/25 History metformin 1,000 mg tablet 1,000 mg PO DAILY 07/25/25 08/07/25 History tirzepatide 5 mg/0.5 mL 5 mg subcut SA 07/25/25 08/07/25 History subcutaneous pen injector (Mounjaro) [facility] Medical History Wears glasses Alcohol use Arthritis Fatty liver High cholesterol Restless legs Dietary restriction Narcolepsy CPAP (continuous positive airway pressure) dependence Non-smoker History of pain when walking History of edema History of stress test History of echocardiogram Cardiology follow-up encounter History of atrial fibrillation Diabetes Obesity COVID Acute hyperglycemia Dehydration, mild Atrial fibrillation with rapid ventricular response Essential hypertension Hyperlipidemia PEÑA (nonalcoholic steatohepatitis) Diabetes mellitus type II, controlled Surgical History History of shoulder surgery Injury of meniscus of left knee History of colonoscopy (08/26/16) History of vasectomy (08/01/09) Family History Mother COPD (chronic obstructive pulmonary disease) Father Cancer CAD (coronary artery disease) Brother Diabetes AA (alcohol abuse) Social History Smoking Status: Never smoker alcohol intake: current alcohol intake frequency: a few times a month HPI left knee Details: This documentation accurately reflects the service provided and the decisions made by me, Dr. Jose Martini, DO 08/07/25 0955. Part of today?s visit was documented by Rossi Malhotra ATC, acting as scribe. NORY ZAPIEN is a 60 year old M here today for iovera treatment for left total knee arthroplasty surgery scheduled 08/20/2025. Patient rates his pain a 5/10 today. Ortho Exam General General: Yes no acute distress Neurologic: Yes alert and Yes oriented x3 Psychologic: Yes reasonable and appropriate Left Knee Skin/Wound: No ecchymosis, No erythema and No swelling Knee ROM: Yes ROM-Extension -20 to 0 and Yes ROM-Flexion 0-140 (125) Examination: Yes med jt line tenderness, No Lat jt line tenderness, Yes Crepitus, Yes Pain with flexion and No Kareen's Test Stability: NML: Anterior Drawer, NML: Posterior Drawer, NML: Valgus 0, NML: Valgus 30, NML: Varus 0 and NML: Varus 30 KNEE: + patellar grind with pain and crepitation - collateral ligament instability Head: Normocephalic Atraumatic Chest: symmetrical rise, non-labored breathing, no audible wheeze Abdomen: no guarding, non-rigid Office Procedures Iovera Procedure Details:: Preoperative diagnosis :chronic knee pain Postoperative diagnosis: Same Procedure: Cryotherapy with Iovera device to anterior femoral cutaneous nerve and 2 branches of the infrapatellar saphenous nerve. Three nerves in total. Description of procedure: Patient was brought back to the procedure room the operative extremity was identified by both patient and physician. Entire extremity was cleaned with alcohol. The superior inferior and medial lateral borders of the patella were marked followed by the center of the patella. We then measured 12 cm proximal to this and with the knee in flexion marked the medial and lateral edges of the patella continuing proximally to give us our proximal treatment line.This was our treatment line for the anterior femoral cutaneous nerve. A second treatment line was made 5 cm medial to the inferior pole of the patella and 5 cm distally. The treatment lines were then prepped with Betadine and 1 last time with alcohol. Lidocaine 1% with epi was injected subcutaneously along the treatment lines. Using the Iovera device on the marked treatment lines device was activated allowing it to freeze and defrost with 1 minute cycles. Once all 3 nerve branches were treated across the 2 treatment lines patient was cleaned and a light dressing with 4 x 4 and Kyle wrap was applied. Patient tolerated the procedure without complication. Supplemental Info 06/12/2025 right knee x-ray moderate medial jont space narrowing on flexion view 06/12/2025 x-ray left knee: Severe medial joint space narrowing AP view 04/04/2024 x-ray right knee: There is moderate patellofemoral arthrosis with lateral patellar tracking and spurring there is moderate joint space narrowing on flexion view medially 04/04/2024 x-ray left knee advanced medial compartment narrowing on flexion view there is moderate patellofemoral arthrosis and moderate narrowing on the AP view medial Coding Level of Care Code Attention Medical Physiologist Diagnoses Chronic pain of left knee M25.562; G89.29 Assessment and Plan Assessment and Plan (1) Chronic pain of left knee: Status: Chronic Orders: Orders Iovera Today M17.0 - Bilateral primary osteoarthritis of knee, M25.569 - Pain in unspecified knee Plan Patient is here today for left knee Iovera treatment for left total knee arthroplasty surgery that is scheduled for 08/20/2025. He plans on getting a walker prior to surgery and understands to bring that with him to the day of surgery. Pre-surgery soap and Ensure drinks were given to him today as well as surgery consent form signed. Advised patient that he should not take any NSAIDs 7 days prior to surgery. If he needs anything for pain he can take Tylenol if he needs it. Explained he can take up to 1,000mg of Tylenol at a time. Follow up after surgery for post-op appointment or sooner if pain, swelling, numbness or associated symptoms, or concerns develop. All questions answered. Patient in agreement of plan. 08/07/25 1605 <Electronically signed by Jose Martini DO> Date Jose Martini DO I have examined the patient and the H&P has been reviewed. There are no clinical changes since date of exam.
[2025-08-20] MEDS: Cefazolin 1 GM/5 ML Vial 2 GM IV (10:29)
[2025-08-20] MEDS: Lidocaine 1% (5 ml sdv) 5 ML Vial IV (10:34)
--- NOTE | 2025-08-20 10:45 | KNEE_PTH ---
PATIENT: NORY ZAPIEN LOC: [facility] [place] U#:[id number] AGE/SX: 60/M ROOM: RE08/20/[address]: Dr. Jose Martini DO : 1965 BED: DIS: 08/20/2025 SPEC #: [id number] RECD: 08/20/25 14:09 STATUS: NEGRO REQ #: [id number] JUAN DIEGO: 08/20/25 10:[address]: Jose Martini DEPT: SURGICAL PATHOLOGY RECD BY: Link Cary ENTERED: 08/20/25 16:22 SP TYPE: TOTAL KNEE OTHR DR: MD Dr. Zach Boss MD Tissues: A - Knee, NOS Procedures: Decalcification bone/plaque Surgery Specimen Level III HEADER OPERATION: ERAS, left total knee replacement robotic arm assist PRE-OP DIAGNOSIS: Chronic pain of left knee TISSUE SUBMITTED: A- Left knee bone and soft tissue MICROSCOPIC DIAGNOSIS A. Left knee bone and soft tissue, left total knee replacement robotic arm assisted: * Benign cartilage and bone with degenerative changes MICROSCOPIC DESCRIPTION Slides are reviewed. GROSS DESCRIPTION A. Received in formalin labeled with the patient's name and date of . Designated as left knee bone and soft tissue is a 10.5 x 9.5 x 2.6 cm aggregate of bone and soft tissue fragments, collectively comprising a knee joint. The medullary bone ranges from yellow to red and is trabeculated. The articular cartilage is rodriguez and granular with patchy erythema and focal eburnation. There is mild, peripheral osteophyte formation. Linen Manager sections are submitted in 2 cassettes, following decalcification. DE 08/20/2025PT:[id number]
[2025-08-20] MEDS: Midazolam 2 MG/2 ML Syringe 4 MG IV (10:46)
[2025-08-20] MEDS: dexMEDEtomidine 200 MCG/2 ML ML 56 MCG IV (10:48)
[2025-08-20] MEDS: TRANEXAMIC ACID 1,000 MG/10 ML ML 2000 MG IV (11:08)
[2025-08-20] MEDS: 0.9% Normal Saline (Pres. free 10 ML Vial (12:11)
[2025-08-20] MEDS: Epinephrine (1 mg/ml) 1 MG/ML VIAL (12:11)
--- NOTE | 2025-08-20 12:47 | RAD_ITS ---
PROCEDURE: KNEE 1 OR 2 VIEWS 08/20/2025 REASON FOR EXAM: POST OP PACU TECHNIQUE: Procedure Code: RADK Modality: DX Procedure: KNEE 1 OR 2 VIEWS Laterality: Left knee. COMPARISON: Prior study dated June 12, 2025. FINDINGS: The patient is status post left total knee replacement. There is good alignment. Postoperative soft tissue changes. RAD/Knee 1 or 2 Views IMPRESSION: Status post left total knee replacement. There is good alignment. Postoperative soft tissue changes. Reading Location: [place] [address]
[2025-08-20] MEDS: 0.9% Normal Saline (1000mL) 1,000 ML 125 ML IV (12:50)
--- NOTE | 2025-08-20 12:50 | PCM.OPRPT ---
Operative Report (Standard) Operative Information Date of Procedure: 08/20/25 Pre-Operative Diagnosis: Left knee DJD Post-Operative Diagnosis: Same Surgery/Procedure Performed: Left total knee arthroplasty cargo and container inspector: Yes Pumper Helper: Michael Brennan Tasks completed by office assistant receptionist: Opening & closing and Implanting device Type of Anesthesia: Spinal RN Documented Start/Stop Times: Operation Date: 08/20/25 10:45 Case Time Into Pre-Op 08/20/25 08:44 Out of Pre-Op 08/20/25 10:28 Anesthesia Start 08/20/25 10:30 Into Room 08/20/25 10:30 Procedure Start 08/20/25 10:53 Procedure Start Time: 10:53 Procedure Stop Time: 12:49 Select all DRAINS/GRAFTS/IMPLANTS that apply: Implanted device Implanted device details: [place] triathlon Estimated Blood Loss: 125 Specimen collected: Yes Description of specimen(s) removed: Bone and soft tissue Description of surgery: Preoperative diagnosis: Left knee DJD Postoperative diagnosis: Same Procedure: Left total knee arthroplasty CT guided Robotic Assisted Implant: Virgil triathlon press fit, femoral component size5, tibial baseplate size 5, asymmetric patella size 38, polyethylene X3 size 9 CS Anesthesia: Spinal with adductor canal block Tourniquet time: 15 minutes at 300 mmHg Complications: None Condition: Stable to PACU Estimated blood loss: 125 cc Mechanics Supervisor Michael Brennan. My physician assistant manager of operations was a vital part of this case. He was important in appropriate retraction during the case, and protection of soft tissues during procedure. His intimate knowledge of the case and my steps aided in safe and expedient completion of the procedure as well as appropriate position of the extremity during the case. He was also vital in assisting with closure under my direct supervision. Indication for procedure: This is a 60-year-old male with long standing degenerative joint disease of the knee who has failed conservative treatment and wished to proceed with elective total knee arthroplasty. Risk benefits and alternatives were reviewed including; risk of bleeding, infection, nerve artery and tissue damage, continued pain, postoperative stiffness, venous thromboembolism, need for postoperative rehabilitation, mechanical feel to the knee, and expected postoperative course. The pre- operative CT and templating was performed with component sizing. Procedure: The patient was met in the preoperative holding area. The operative extremity was identified by both patient and physician and was marked. Patient was met by anesthesia. An adductor canal block was placed by anesthesia postoperatively the patient was brought back to the operating room on a wheeled cart and transferred to the operating table in the supine position. Anesthesia was started. A well-padded tourniquet was placed on the operative extremity. The patient was prepped and draped in the usual sterile fashion. A timeout was called to ensure the proper patient procedure and extremity were being contemplated. An esmarch was used to exsanguinate the extremity. The tourniquet was inflated. A 10 blade scalpel was used to make a midline incision down through the skin and subcutaneous tissue. Skin retractors placed. Bovie and Aquamantis were used to perform meticulous hemostasis. full-thickness flaps were elevated medial and lateral along the joint capsule. A deep blade scalpel was used to perform a medial parapatellar arthrotomy. The knee was brought to full extension. A bovie was used to release the soft tissues off the most proximal aspect of the medial tibial plateau, a three-quarter inch curved osteotome was also used in this process. The infrapatellar fat pad was excised. The suprapatellar fat pad was excised partially anteriorolateraly and portion the anterioromedial pad was elevated from the femur. At this point our intra-articular femoral array was placed at a 45 degree angle proximal and posterior to the medial epicondyle. femoral checkpoint was placed at this time. Our tibial array was placed partially intra incisional 1 stab incision was made for the inferior pin with a 15 blade scaple, and pins were placed and attached to the tibial array , tibial checkpoint was placed in the proximal tibial metaphysis. Tourniquet was let down. At this point registration martinez were taken throughout the knee . Once the knee was registered we then tensioned the medial and lateral ligaments in extension and 90 degrees of flexion. We then used these numbers to adjust our components within parameters to balance the knee in both flexion and extension once this was done on our monitor we then proceeded with using the robotic arm to make our tibial plateau cut, anterior and posterior chamfer and distal femur cuts. we removed the cut fragments with the use of a bovie and Javier, we did use a lamina board certified arts therapist to insure we visualized and removed all posterior osteophytes and at this time also used the Aquamantis on the posterior joint capsule. we then trialed and achieved the desired plan with a well-balanced knee. we used the green probe to carl the corresponding tibial rotation based on our CT template. Lug holes were drilled in the femur the tibia preparation was completed with the appropriate sized base plate pinned based on previous rotation carl. An appropriate sized fin punch was used on the tibia and 4 corner drill was used for the press fit component and the patella was prepared by first using a caliper to ensure sufficient bone stock and a patellar reamer to remove the desired amount of bone. lug holes drilled for an asymmetric poly. We then brought the knee through range of motion with excellent patellar tracking. We thoroughly irrigated the knee. Trial components were removed a posterior capsular injection was preformed with our standard cocktail. In addition the aqua Mantis was also used to aid in hemostasis. Betadine rinse was allowed to sit and washed out completely. Components were press-fit into place. Aricept rinse was then used followed by several more liters of irrigation after it was allowed to sit. The joint capsule was closed with #1 Ethibond [id number] in the upper part of the arthrotomy and #1 Vicryl in the lower part of the arthrotomy. , Followed by 2-0 Vicryl in the subcutaneous tissues with madison in the skin. Arrays and checkpoints were removed prior to closure all counts were correct stab incisions were closed with a staple standard dressing in the form of Mepilex AG for the main incision and a small Mepilex over the pin holes. Thigh-high CASSIA hose applied over top of dressing. Patient tolerated the procedure well and was directed to PACU in stable condition . There were no intraoperative complications. Surgical Findings: DJD knee Complications Complications: No
--- NOTE | 2025-08-20 12:53 | EX.PCM.DISCH ---
Discharge Instructions Diet Discharge Diet: No restrictions Activity Weight Bearing Status: Full weight bearing Dressing / Incision Call your doctor if you observe: Shortness of breath and Chest pain Additional Dressing/Incision Instructions:: Ice and elevate lower extremities 2 weeks while not ambulating. Ambulation is encouraged. Weight bearing as tolerated. Use assistive devise for stability. Encourage FULL knee extension and flexion 1 time EVERY time you get up and down and MULTIPLE times per day. No showering until 72 hours after surgery. May begin showering postop day #3. Remove the dressing prior to shower and gently wash with warm water and antibacterial soap then pat dry and place abdominal pad (or plain gauze) and CASSIA hose over top. If you decide not to begin showering 72 hrs post operatively and wish to sponge bath only, then you may leave dressing undisturbed for up to 1 week, but must remove prior to first shower. Do not submerge for 3 weeks. If not showering daily after the initial dressing is removed you must clean incision and change dressing daily after the dressing comes off, must come off by 7 days postop. Do not allow animals near the incision area. Keep clean. Follow anti-coagulation recommendations as prescribed. Do not take any NSAIDs while on blood thinner. Do not take any additional narcotic pain medication other than what was prescribed on your surgery day without discussing with physician. Narcotic medication can be addictive. Do not drink alcohol while taking narcotics. Supplement narcotic prescription with acetaminophen 1000 mg 4 times a day. Start physical therapy. If you are not currently scheduled for physical therapy or you are unsure of appointment time please call office [facility] to arrange. Call Dr. Martini's office ) with any concerns. Follow Up Care Please Follow Up With: Jose Martini DO When: 2 weeks Test Results: Test results from this visit will be discussed in further detail at your follow-up appointment, if applicable. Discharge Plan Admission Primary Reason for Your Visit: Left total knee arthroplasty Attending Provider: Jose Martini Primary Care Provider: Zach Perry Consulting Providers: Margarito Wynn Instructions Print Language: Greenlandic Discharge Orders/Prescriptions Prescriptions: New acetaminophen 500 mg tablet 1,000 mg PO Q6H Qty: 90 0RF cephalexin 500 mg capsule 1,000 mg PO Q8H Qty: 4 0RF Rx Instructions: Take 2 tabs before you go to bed and 2 tabs after 5 AM morning after surgery when you wake up oxycodone 5 mg tablet 5 - 10 mg PO Q4H PRN (Reason: pain) 7 Days Qty: 60 0RF Eliquis 2.5 mg tablet 2.5 mg PO BID Qty: 28 0RF Rx Instructions: Begin morning after surgery. Continued atorvastatin 40 mg tablet 40 mg PO MOTUWETHFR metformin 1,000 mg tablet 1,000 mg PO DAILY Mounjaro 5 mg/0.5 mL pen injector 5 mg subcut SA losartan 50 mg tablet 50 mg PO DAILY 90 Days Qty: 90 3RF Referrals / Follow Up: Zach Perry MD [Primary Care Provider, Family Practice] Disposition Disposition (needs filled in before D/C Order can be placed): Home, Self Care
--- NOTE | 2025-08-20 13:12 | PCM.POST.ANE ---
Anesthesia: Postop Eval I Current Vital Signs Temperature: 98.2 F Pulse Rate: 79 Blood Pressure: 171/85 Respiratory Rate: 16 Pulse Ox: 98 Oxygen Delivery Method: Room Air Assessment Airway patent: Yes Spontaneous unlabored respirations: Yes Mental status: Awake and Calm nausea: No Vomiting: No Anesthesia Complication: No Fluid Hydration Crystalloid volume administer (ml): 1,200 Total IV fluid infused: 1,200 Progress Note Anesthesia document: Postop Eval 1 completed: Yes
--- NOTE | 2025-08-20 14:49 | SUR.PHASEI ---
1335; scop patch removed
[2025-08-20] MEDS: Cefazolin 2 GM in 0.9% Normal Saline (100mL Bag) 100 ML IV (15:50)
--- NOTE | 2025-08-20 16:44 | POSTOPAN2_ITS ---
Anesthesia Postop Eval I Sum Postop Eval Completion status Anesthesia document: Postop Eval 1 completed: Yes Anesthesia Postop Eval I Summary Anesthesia Postop Eval I Summary: Anesthesia Postop Eval I: Assessment Summary Airway patent Yes 08/20/25 13:39 SILVER MINER [email or web address].[email or web address] Spontaneous unlabored Yes 08/20/25 13:39 SILVER MINER [email or web address].[email or web address] respirations Mental status Awake,Calm 08/20/25 13:39 SILVER MINER [email or web address].[email or web address] nausea No 08/20/25 13:39 SILVER MINER [email or web address].[email or web address] Vomiting No 08/20/25 13:39 SILVER MINER [email or web address].[email or web address] Anesthesia Postop Eval I: Fluid Summary Crystalloid volume administer 1,200 08/20/25 13:39 SILVER MINER [email or web address] (ml) Colloids volume administered ( ml) Blood Product volume administered (ml) Total IV fluid infused 1,200 08/20/25 13:39 SILVER MINER [email or web address].[email or web address] Anesthesia Postop Eval I: Summary Notes Anesthesia Complication No 08/20/25 13:39 SILVER MINER [email or web address].[email or web address] Anesthesia Complication Comment: Post-operative progress note Anesthesia: Postop Eval II Evaluation Mental status: Awake and Calm Pain Level: 0 nausea: No Vomiting: No Complications Anesthesia Complication: No
--- NOTE | 2025-08-20 16:44 | PCM.POSTANE2 ---
Anesthesia Postop Eval I Sum Postop Eval Completion status Anesthesia document: Postop Eval 1 completed: Yes Anesthesia Postop Eval I Summary Anesthesia Postop Eval I Summary: Anesthesia Postop Eval I: Assessment Summary Airway patent Yes 08/20/25 13:39 [email or web address] Spontaneous unlabored Yes 08/20/25 13:39 [email or web address] respirations Mental status Awake,Calm 08/20/25 13:39 [email or web address] [email or web address] nausea No 08/20/25 13:39 [email or web address] Vomiting No 08/20/25 13:39 [email or web address] Anesthesia Postop Eval I: Fluid Summary Crystalloid volume administer 1,200 08/20/25 13:39 [email or web address] (ml) Colloids volume administered ( ml) Blood Product volume administered (ml) Total IV fluid infused 1,200 08/20/25 13:39 [email or web address] Anesthesia Postop Eval I: Summary Notes Anesthesia Complication No 08/20/25 13:39 [email or web address] Anesthesia Complication Comment: Post-operative progress note Anesthesia: Postop Eval II Evaluation Mental status: Awake and Calm Pain Level: 0 nausea: No Vomiting: No Complications Anesthesia Complication: No
== END 2025-08-20 17:45 | disposition home or self-care (01) ==
LOC: SDC 08:34 → AC 08:35
PROVIDERS: Anesthesiology; PCP Family Medicine; Referring Provider Orthopaedic Surgery; Visit Provider Orthopaedic Surgery
PROC: 0SRD0JZ Replacement of Left Knee Joint with Synthetic Substitute, Open Approach (ICD-10-PCS; CPT 27447; principal; 2025-08-20 10:15)
DX: M17.12 Unilateral primary osteoarthritis, left knee (principal); E11.9 Type 2 diabetes mellitus without complications; E78.00 Pure hypercholesterolemia, unspecified; I10 Essential (primary) hypertension; Z79.84 Long term (current) use of oral hypoglycemic drugs; Z79.85 Long-term (current) use of injectable non-insulin antidiabetic drugs; Z79.899 Other long term (current) drug therapy
CPT/HCPCS: 27447; 64447; 01402; 36415; 73560; 82962; 82985; 83735; 85610; 85730; 86850; 86900; 86901; 87081; 88304; 88311; 93005; 97162; C1776; J2405; J3475

== ENCOUNTER → 2025-09-26 | Outpatient (CLI) | payer OTHER, SELFPAY ==
--- NOTE | 2025-09-26 11:25 | RAD_ITS ---
PROCEDURE: KNEE 3 VIEWS 09/26/2025 REASON FOR EXAM: S/P LEFT TKA TECHNIQUE: Procedure Code: RADPAT Modality: DX Procedure: KNEE 3 VIEWS Laterality: Left COMPARISON: Left knee, 08/20/2025. FINDINGS: Status post total knee arthroplasty. The patellar, femoral and tibial components are normal apposition. There is no evidence of fracture. There is no knee joint effusion. The periarticular soft tissues are unremarkable. There is continued postoperative soft tissue swelling over the patella. There has been interval removal of the skin madison. RAD/Knee 3 Views IMPRESSION: As per findings. Reading Location: [place] [id number]
== END | disposition home or self-care (01) ==
LOC: MTRAD 11:25
PROVIDERS: PCP Family Medicine; Referring Provider Orthopaedic Surgery; Visit Provider Orthopaedic Surgery
DX: Z96.652 Presence of left artificial knee joint (principal)
CPT/HCPCS: 73562